=== PATIENT | female | born 1940 | race Caucasian/White ===

== ENCOUNTER → 2021-06-05 09:46 | Outpatient (CLI) | payer MEDICARE, SELFPAY ==
--- NOTE | ~2021-06-05 | XR_ITS ---
EXAMINATION: XR chest 2V EXAM DATE: 06/05/2021 10:36 INDICATION: R06.00 - Dyspnea, unspecified TECHNIQUE: Frontal and lateral projections of the chest obtained and reviewed. There is no prior karlos dy for comparison. FINDINGS: Mild cardiomegaly. No confluent consolidation, pneumothorax or pleural effusion suspected. There are bony degenerative changes. IMPRESSION: Mild cardiomegaly Reviewed, dictated and finalized at location B. FICIAL INTELLIGENCE SPECIALIST IMPRESSION: Mild cardiomegaly
== END ==
PROVIDERS: PCP Family Medicine Adolescent Medicine; Visit Provider Family Medicine Adolescent Medicine
DX: R06.00 Dyspnea, unspecified (principal); E11.3291 Type 2 diabetes mellitus with mild nonproliferative diabetic retinopathy without macular edema, right eye; I10 Essential (primary) hypertension; R60.1 Generalized edema; I51.7 Cardiomegaly
CPT/HCPCS: 71046

== ENCOUNTER → 2021-10-07 10:57 | Outpatient (CLI) | payer MEDICARE, SELFPAY ==
--- NOTE | ~2021-10-07 | XR_ITS ---
EXAMINATION: XR chest 2V DATE: 10/07/2021 11:49 INDICATION: Dyspnea. TECHNIQUE: Frontal and lateral views of the chest were obtained. COMPARISON: Chest 2 views 06/05/2021, CT abdomen 08/16/2018 FINDINGS: There is mild atelectasis at the lung bases. No pleural effusion or pneumothorax. Cardiomeg maura is noted. IMPRESSION: 1. Mild atelectasis at the lung bases. 2. Cardiomegaly. Reviewed, dictated and finalized at location B.
== END ==
PROVIDERS: PCP Family Medicine Adolescent Medicine; Visit Provider Family Medicine Adolescent Medicine
DX: R06.00 Dyspnea, unspecified (principal); I51.7 Cardiomegaly
CPT/HCPCS: 71046

== ENCOUNTER 2022-03-24 01:53 | Emergency (ER) | payer MEDICARE, SELFPAY ==
--- NOTE | ~2022-03-24 | XR_ITS ---
EXAMINATION: XR hip RT 2V w AP pelvis DATE: 03/24/2022 02:42 INDICATION: Right hip pain. TECHNIQUE: An anteroposterior view of the pelvis and 2 views of right hip were obtained. COMPARISON: None. FINDINGS: Bone alignment is normal. No fracture. There is mild osteoarthritis of the hips. IMPRESSION: 1. Mild osteoarthritis of the hips. Reviewed, dictated and finalized at location A. ARATION ROOM MANAGER
--- NOTE | ~2022-03-24 | XR_ITS ---
EXAMINATION: XR ankle RT min 3V DATE: 03/24/2022 02:42 INDICATION: Right ankle swelling. TECHNIQUE: 4 views of right ankle were obtained. COMPARISON: None. FINDINGS: Bone alignment is normal. No fracture. Joint spaces are well maintained. There is an enthes ophyte at plantar aspect of calcaneal tuberosity. Ankle soft tissue swelling is noted. IMPRESSION: 1. No fracture. Reviewed, dictated and finalized at location A. MENT AIRCRAFT MECHANIC IMPRESSION: 1. No fracture.
--- NOTE | 2022-03-24 01:59 | ED.LOWEXIN ---
HPI - Extremity Injury (Lower) General Chief Complaint: Extremity Injury, Lower Stated Complaint: Right Hip, Foot, Leg Pain Time Seen by Provider: 03/24/22 01:59 Source: patient and family Mode of arrival: wheelchair Limitations: no limitations History of Present Illness HPI Narrative: Patient is an 81-year-old female with a history of hypertension, hyperlipidemia, type 2 diabetes, acid reflux, presenting to the emergency department for evaluation of low right hip pain, right buttock pain with radiation of the pain down the right leg into the right foot. Patient reports associated weakness and pain exacerbated with movement. She has been unable to ambulate secondary to the pain. Pain initially began approximately 1 week ago and has worsened over the past 36 hours. Patient has been taking Tylenol at home without improvement in her symptoms. Patient denies associated numbness or tingling. She denies fall or injury. Patient reports bilateral leg swelling that has improved with administration of diuretic therapy that she has been taking at home. Patient denies saddle anesthesia or bowel or bladder incontinence. She reports history of pain in the right hip in the past that usually resolves with time and Tylenol. Related Data Home Medications Medication Instructions Recorded Confirmed chlorthalidone 25 mg tablet 25 mg PO DAILY PRN 06/04/21 12/04/21 glipizide 5 mg tablet, extended 5 mg PO BID 06/04/21 12/04/21 release 24 hr Allergies Allergy/AdvReac Type Severity Reaction Status Date / Time Penicillins Allergy Severe HIVES Verified 03/24/22 02:23 propoxyphene Allergy Severe GI UPSET Verified 03/24/22 02:23 hydrocodone AdvReac Severe SEVERE GI Verified 03/24/22 02:23 UPSET, N/V nitrofurantoin AdvReac Severe Swelling Verified 03/24/22 02:23 acetaminophen AdvReac Unknown Unknown Verified 03/24/22 02:23 [From Darvocet-N] adhesive tape AdvReac Unknown Unknown Verified 03/24/22 02:23 amlodipine AdvReac Unknown Unknown Verified 03/24/22 02:23 glimepiride AdvReac Unknown Unknown Verified 03/24/22 02:23 ibuprofen AdvReac Unknown Unknown Verified 03/24/22 02:23 metformin AdvReac Unknown Unknown Verified 03/24/22 02:23 omeprazole [From Prilosec] AdvReac Unknown Unknown Verified 03/24/22 02:23 pioglitazone AdvReac Unknown Unknown Verified 03/24/22 02:23 simvastatin [From Zocor] AdvReac Unknown Unknown Verified 03/24/22 02:23 Review of Systems Review of Systems: CONSTITUTIONAL: Denies fever, chills, or sweats. ENT: Denies rhinorrhea, congestion, sore throat, or otalgia. CARDIOVASCULAR: Denies chest pain, palpitations, or edema. RESPIRATORY: Denies cough or dyspnea. GASTROINTESTINAL: Denies abdominal pain, nausea, vomiting, or diarrhea. GENITOURINARY: Denies dysuria or hematuria. SKIN: Denies rash or itching. MUSCULOSKELETAL: Reports right hip pain, right buttock pain right foot pain NEUROLOGIC: Denies headache, numbness; reports weakness in the right lower extremity secondary to pain PMFSH Past Medical History Medical History Acquired hypertriglyceridemia Age related osteoporosis Aortic atherosclerosis Exudative age-related macular degeneration, left eye, with inactive choroidal neovascularization GERD (gastroesophageal reflux disease) Hepatic steatosis Hypertension longterm (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 of insulin Nonexudative age-related macular degeneration, right eye, intermediate dry stage Overactive bladder Type 2 diabetes mellitus with mild nonproliferative diabetic retinopathy without macular edema, right eye Surgical History Surgical History H/O repair of rotator cuff Hx of cholecystectomy Family History Family History Father Asthma Cerebrovascular accident Family history of diabetes mellitus in first degree relative Sibling Family history of diabetes mellitus
[2022-03-24 02:01] VITALS: BP 137/54; PULSE 61; RESP 18; TEMP 36.2; O2SAT 98
[2022-03-24] MEDS: diazePAM (*CRX) 5 MG TABLET 2.5 MG PO (02:24)
[2022-03-24 02:30] LABS: Basophils Percent Auto 0.4 % (0.2-1.2); Eosinophils Absolute Auto 0.1 K/mm3 (0-0.3); Eosinophils Percent Auto 1.2 % (0-4.4); Hematocrit 37.4 % (37.0-47.0); Hemoglobin 12.6 g/dL (12.0-15.0); Immature Granulocyte Absolute 0.04 K/mm3 (0.00-0.031); Immature Granulocyte Percent A 0.4 % (0-0.5); Lymphocytes Absolute Auto 1.42 K/mm3 (0.9-3.2); Lymphocytes Percent Auto 13.7 % (18.3-44.2); Mean Corpuscular HGB Conc 33.7 g/dl (32-36); Mean Corpuscular Volume 91.9 fl (80-100); Mean Platelet Volume 10.6 fl (7.4-10.4); Monocytes Absolute Auto 0.8 K/mm3 (0.1-0.6); Monocytes Percent Auto 7.9 % (2.6-8.5); Neutrophils Absolute Auto 7.9 K/mm3 (1.3-6.7); Neutrophils Percent Auto 76.4 % (45.5-73.1); Platelet Count Result 151 k/mm3 (150-375); Red Blood Count 4.07 M/mm3 (4.2-5.4); Red Cell Distribution Width 12.7 % (11.5-14.5); White Blood Count 10.4 K/mm3 (4.5-10.0)
[2022-03-24 02:42] LABS: Anion Gap 11 mmol/L (8-16); Blood Urea Nitrogen 55 mg/dL (7-17); CRP < 0.5 mg/dL (<1.0); Calcium 8.4 mg/dL (8.4-10.2); Carbon Dioxide 31 mmol/L (22-30); Chloride 101 mmol/L (98-107); Estimated CRCL calculation 30 ml/min; Estimated Glomerular Filt Rate 48; Glucose 181 mg/dL (65-110); Potassium 3.4 mmol/L (3.4-5.0); Sodium 143 mmol/L (137-145); Uric Acid 12.7 mg/dL (2.5-7.5)
[2022-03-24 04:20] VITALS: BP 121/67; PULSE 67; RESP 18; O2SAT 99
[2022-03-24 04:48] LABS: Erythrocyte Sedimentation Rate 21 mm/hr (0-20)
== END 2022-03-24 05:00 | disposition home or self-care (01) ==
PROVIDERS: Emergency Provider Emergency Medicine; PCP Family Medicine Adolescent Medicine
DX: M54.41 Lumbago with sciatica, right side (principal); M54.10 Radiculopathy, site unspecified; M79.671 Pain in right foot; K21.9 Gastro-esophageal reflux disease without esophagitis; I10 Essential (primary) hypertension; E11.3291 Type 2 diabetes mellitus with mild nonproliferative diabetic retinopathy without macular edema, right eye; Z79.4 Long term (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 of insulin
CPT/HCPCS: 36415; 73502; 73610; 80048; 84550; 85025; 85652; 86140; 96374; 99284; A9270; J1100

== ENCOUNTER 2022-06-29 12:53 | Emergency (ER) | payer MEDICARE, SELFPAY ==
--- NOTE | ~2022-06-29 | CT_ITS ---
EXAMINATION: CT cervical spine wo con DATE: 06/29/2022 16:47 INDICATION: neck pain TECHNIQUE: Computed tomography (CT) of the cervical spine was performed without intravenous contrast. Automated exposure control and iterative reconstruction technique were employed. The dose-length pro duct was 414.29 mGy-cm. COMPARISON: X-ray C-spine 02/28/2011. FINDINGS: Vertebral Body Alignment: Intact. . Craniocervical and atlantoaxial alignment: Moderate degenerative change. Alignment intact. Osseous structures/fracture: No evidence of a lytic or blastic process in the visualized spine. No e vidence of acute fracture. . Cervical soft tissues: The paraspinal soft tissues planes are maintained. Minimal biapical pleural sc arring. Calcified plaque in the neck arteries. Degenerative changes: Degenerative changes, without severe neural foraminal or central canal narrowin g. IMPRESSION: No acute fracture or traumatic malalignment in the cervical spine. Reviewed, dictated and finalized at location K. SIX SIGMA BLACK BELT
[2022-06-29 13:13] VITALS: BP 121/50; PULSE 66; RESP 16; TEMP 36.8; O2SAT 95
--- NOTE | 2022-06-29 14:13 | ECG_ITS ---
Measurements Intervals [place] Rate: 57 P: 14 SC: 124 QRS: -5 QRSD: 86 T: 43 QT: 423 QTc: 412 Interpretive Statements SINUS BRADYCARDIA BASELINE ARTIFACT- I, II, AVR, AVL BORDERLINE ECG NO PREVIOUS ECG AVAILABLE FOR COMPARISON Electronically Signed On 06-29-2022 16:38:42 MEDICAL MICROBIOLOGIST by Tobi Jenkins D.O.
[2022-06-29 14:50] LABS: Basophils Absolute Auto 0.1 K/mm3 (0.0-0.1); Basophils Percent Auto 0.5 % (0.2-1.2); Eosinophils Absolute Auto 0.2 K/mm3 (0-0.3); Eosinophils Percent Auto 1.9 % (0-4.4); Hematocrit 36.5 % (37.0-47.0); Hemoglobin 12.1 g/dL (12.0-15.0); Immature Granulocyte Absolute 0.04 K/mm3 (0.00-0.031); Immature Granulocyte Percent A 0.4 % (0-0.5); Lymphocytes Absolute Auto 1.45 K/mm3 (0.9-3.2); Lymphocytes Percent Auto 14.8 % (18.3-44.2); Mean Corpuscular HGB Conc 33.2 g/dl (32-36); Mean Corpuscular Hemoglobin 31.3 pg (26-34); Mean Corpuscular Volume 94.3 fl (80-100); Monocytes Absolute Auto 0.8 K/mm3 (0.1-0.6); Monocytes Percent Auto 7.9 % (2.6-8.5); Neutrophils Absolute Auto 7.3 K/mm3 (1.3-6.7); Neutrophils Percent Auto 74.5 % (45.5-73.1); Platelet Count Result 173 k/mm3 (150-375); Red Blood Count 3.87 M/mm3 (4.2-5.4); Red Cell Distribution Width 13.8 % (11.5-14.5); White Blood Count 9.8 K/mm3 (4.5-10.0)
[2022-06-29 14:52] LABS: Appearance Urine Clear (Clear); Bilirubin Urine Negative (Negative); Blood Urine Negative (Negative); Color Urine Yellow (Yellow); Glucose Urine UA Negative (Negative); Ketones Urine Negative (Negative); Leukocyte Esterase Ur Negative LEU/UL (Negative); Nitrate Urine Negative (Negative); Protein Urine Negative (Negative); Specific Grav Ur 1.015 (1.001-1.035); Urobilinogen Urine 0.2 mg/dL (<2.0)
[2022-06-29 14:58] LABS: Alanine Aminotransferase 17 U/L (6-35); Albumin Level 3.9 g/dL (3.5-5.1); Alkaline Phosphatase 100 U/L (38-126); Anion Gap 3 mmol/L (8-16); Aspartate Amino Transferase 22 U/L (14-36); Bilirubin,Total 0.6 mg/dL (0.2-1.3); Blood Urea Nitrogen 55 mg/dL (7-17); Calcium 8.6 mg/dL (8.4-10.2); Carbon Dioxide 37 mmol/L (22-30); Chloride 97 mmol/L (98-107); Estimated CRCL calculation 33 ml/min; Estimated Glomerular Filt Rate 48; Glucose 200 mg/dL (65-110); Potassium 3.8 mmol/L (3.4-5.0); Sodium 137 mmol/L (137-145)
[2022-06-29 15:01] LABS: Add Urine Microscopic? NO
[2022-06-29] MEDS: diazePAM (*CRX) 2 MG TABLET PO (16:20)
--- NOTE | 2022-06-29 17:05 | ED.GENADULT ---
HPI - General Adult General Chief complaint: Weakness Stated complaint: neck pain/stiffness Time Seen by Provider: 06/29/22 14:57 Source: patient and RN notes reviewed Mode of arrival: ambulatory Limitations: no limitations History of Present Illness HPI narrative: This is an 81 year old with history of DM, gout, hypertension who presents for evaluation of neck pain. She reports posterior neck pain for at least 2 months. She states her pain is worse with movement. She has been taking ibuprofen for her pain. She thought her pain was due to neck strain because she work up with and it is worse with movement. Her pain does improve with ibuprofen at time. She denies headache, fever, chills, dizziness, numbness or tingling. She denies arm or leg weakness. She states moving her arms makes her pain worse. She has taken 600 mg ibuprofen today for her pain without relief. She had appointment with her PCP today for reevaluation of her pain. She denies any recent falls. Related Data Allergies Allergy/AdvReac Type Severity Reaction Status Date / Time Penicillins Allergy Severe HIVES Verified 06/23/22 10:45 propoxyphene Allergy Severe GI UPSET Verified 06/23/22 10:45 hydrocodone AdvReac Severe SEVERE GI Verified 06/23/22 10:45 UPSET, N/V nitrofurantoin AdvReac Severe Swelling Verified 06/23/22 10:45 acetaminophen AdvReac Unknown Unknown Verified 06/23/22 10:45 [From Darvocet-N] adhesive tape AdvReac Unknown Unknown Verified 06/23/22 10:45 amlodipine AdvReac Unknown Unknown Verified 06/23/22 10:45 glimepiride AdvReac Unknown Unknown Verified 06/23/22 10:45 ibuprofen AdvReac Unknown Unknown Verified 06/23/22 10:45 metformin AdvReac Unknown Unknown Verified 06/23/22 10:45 omeprazole [From Prilosec] AdvReac Unknown Unknown Verified 06/23/22 10:45 pioglitazone AdvReac Unknown Unknown Verified 06/23/22 10:45 simvastatin [From Zocor] AdvReac Unknown Unknown Verified 06/23/22 10:45 Review of Systems Constitutional: Constitutional: Denies weakness Cardiovascular: Cardiovascular: Denies syncope, Denies rapid heart rate, Denies irregular heart rhythm, Denies leg edema and Denies dyspnea Respiratory: Respiratory: Denies chest congestion, Denies hemoptysis, Denies excessive phlegm production and Denies dyspnea Gastrointestinal: Gastrointestinal: Denies abdominal pain, Denies hematochezia, Denies diarrhea and Denies vomiting Genitourinary: Genitourinary: Denies hematuria and Denies dysuria Musculoskeletal: Musculoskeletal: Reports back pain, Denies joint swelling, Denies loss of height and Denies muscle weakness Neurologic: Denies syncope, Denies focal weakness and Denies weakness PMFSH Past Medical History Medical History Acquired hypertriglyceridemia Age related osteoporosis Aortic atherosclerosis Exudative age-related macular degeneration, left eye, with inactive choroidal neovascularization GERD (gastroesophageal reflux disease) Hepatic steatosis Hypertension long-term (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 of insulin Nonexudative age-related macular degeneration, right eye, intermediate dry stage Overactive bladder Type 2 diabetes mellitus with mild nonproliferative diabetic retinopathy without macular edema, right eye Surgical History Surgical History H/O repair of rotator cuff Hx of cholecystectomy Family History Family History Father Asthma Cerebrovascular accident Family history of diabetes mellitus in first degree relative Sibling Family history of diabetes mellitus in first degree relative Family history of malignant neoplasm of urinary bladder Mother Family history of heart disease in male family member before age 55 Other Family history of arthritis Hypertension Social History Social History Smoking status: Never smok
== END 2022-06-29 19:40 | disposition home or self-care (01) ==
PROVIDERS: Emergency Provider General Practice; PCP Family Medicine Adolescent Medicine
DX: M54.2 Cervicalgia (principal); G89.29 Other chronic pain; I10 Essential (primary) hypertension; I70.0 Atherosclerosis of aorta; E11.3292 Type 2 diabetes mellitus with mild nonproliferative diabetic retinopathy without macular edema, left eye; H35.3222 Exudative age-related macular degeneration, left eye, with inactive choroidal neovascularization; K21.9 Gastro-esophageal reflux disease without esophagitis; M10.9 Gout, unspecified; M81.0 Age-related osteoporosis without current pathological fracture; Z79.4 Long term (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 of insulin; R00.1 Bradycardia, unspecified
CPT/HCPCS: 36415; 72125; 80053; 81003; 85025; 93005; 96365; 99284; A9270; J0131

== ENCOUNTER 2022-07-01 10:50 | Inpatient (IN) | payer MEDICARE, SELFPAY ==
[2022-07-01] VITALS (18 sets, daily range): BP systolic 101–153; BP diastolic 40–104; PULSE 58–90; RESP 14–28; TEMP 36.6–37.1; O2SAT 93–100; BMI 27.8
--- NOTE | ~2022-07-01 | XR_ITS ---
EXAMINATION: XR chest 1V portable DATE: 07/03/2022 10:22 INDICATION: Shortness of breath TECHNIQUE: frontal view of the chest was obtained. COMPARISON: Chest radiograph dated 07/01/2022 FINDINGS: Eventration along the right hemidiaphragm. Mild opacity lateral left lung base with loss of the mild lateral diaphragmatic shadow which could be due to small pleural effusion, atelectasis, pneumonia or most likely the presence of a small pericardial fat pad. Remainder of the lungs are clear. No pulmona ry edema, pneumothorax or right pleural effusion. The cardiomediastinal silhouette is within normal l imits for AP technique. IMPRESSION: 1. Opacity at the lateral left lower lung zone most likely due to a small left paracardial fat pad al though differential includes small pleural effusion, atelectasis or less likely pneumonia. Reviewed, dictated and finalized at location A. DING PRINCIPAL IMPRESSION: 1. Opacity at the lateral left lower lung zone most likely due to a small left paracardial fat pad although differential includes small pleural effusion, atel ectasis or less likely pneumonia.
--- NOTE | ~2022-07-01 | CT_ITS ---
EXAMINATION: CT LE LT wo con DATE: 07/05/2022 09:28 INDICATION: Lateral left foot pain TECHNIQUE: High resolution computed tomography (CT) of the left foot and ankle was performed without intravenous contrast. Additional sagittal and coronal reconstructions were performed. Automated expos ure control and iterative reconstruction technique were employed. The dose-length product was 495.00 mGy-cm. COMPARISON: None FINDINGS: Bone alignment is normal. No fracture. Prominent osteophyte along the anterior tip of the lateral mal leolus at the insertion of the anterior talofibular ligament additional tiny osteophyte more medially at the insertion of the calcaneofibular ligament with likely representing heterotopic ossification r elated to chronic ligament sprains. Mild polyarticular osteoarthritis at the left foot and ankle with subarticular cystic change along the lateral margin of the talar dome is, both sides of the calcaneo cuboid, medial naviculocuneiform and third tarsal metatarsal articulations. Additional mild osteoarth ritis at the remaining tarsal metatarsal joints, the first metatarsophalangeal and a few interphalang eal joints. Soft tissue swelling with subcutaneous edema most prominent over the dorsum of the foot a nd posterior to the Achilles tendon. No ankle joint effusion. IMPRESSION: 1. Mild polyarticular osteoarthritis at the left foot and ankle. No acute osseous abnormality. 2. Osteophytes along the lateral malleolus suggesting sequela chronic sprains of the anterior talofib ular and calcaneofibular ligaments. Reviewed, dictated and finalized at location B. IMPRESSION: 1. Mild polyarticular osteoarthritis at the left foot and ankle. No acute osseo us abnormality. 2. Osteophytes along the lateral malleolus suggesting sequela chronic sprains o f the anterior talofibular and calcaneofibular ligaments.
--- NOTE | ~2022-07-01 | US_ITS ---
EXAMINATION: US venous doppler [facility] DATE: 07/01/2022 22:38 INDICATION: Lower limb swelling TECHNIQUE: Grayscale ultrasound images without and with compression and Doppler ultrasound images of the bilateral lower extremity veins were obtained. COMPARISON: None. FINDINGS: The visualized portions of right common femoral vein, profunda (deep) femoral vein, femoral vein, pop liteal vein, posterior tibial veins, peroneal veins, gastrocnemius vein and greater saphenous vein ou tflow are patent. The visualized portions of left common femoral vein, profunda femoral vein, femoral vein, popliteal v ein, posterior tibial veins, peroneal veins, gastrocnemius vein and greater saphenous vein outflow ar e patent. IMPRESSION: 1. No deep venous thrombosis in either lower limb. Reviewed, dictated and finalized at location A. T SERVICES LIBRARIAN
--- NOTE | ~2022-07-01 | MR_ITS ---
MRI of the brain Clinical History: Altered mental status Technique: Axial and sagittal T1-weighted images were acquired. These were followed by axial T2-weigh yasemin, diffusion weighted, gradient, and FLAIR images. Findings: There is no acute infarct, intracranial hemorrhage, or mass lesion. Moderate chronic microv ascular ischemic changes are present in the periventricular white matter bilaterally. Ventricles and subarachnoid spaces are unremarkable. Orbits are unremarkable. Paranasal sinuses and m astoid air cells are clear. Major intracranial flow voids are intact. Sagittal midline structures are intact. IMPRESSION: No acute abnormality. Moderate chronic microvascular ischemic change. Reviewed, dictated and finalized at location M.
--- NOTE | ~2022-07-01 | XR_ITS ---
EXAMINATION: XR chest 1V portable DATE: 07/05/2022 10:20 INDICATION: Shortness of breath. TECHNIQUE: A single frontal view of the chest was obtained. COMPARISON: Chest one view 07/04/2022, CT abdomen 08/16/2018 FINDINGS: There is mild atelectasis in the lower lung zones. No pleural effusion or pneumothorax. Car diomegaly is noted. IMPRESSION: 1. Mild atelectasis in the lower lung zones. 2. Cardiomegaly. Reviewed, dictated and finalized at location A.
--- NOTE | ~2022-07-01 | XR_ITS ---
EXAMINATION: XR chest 1V portable DATE: 07/04/2022 12:54 INDICATION: Shortness of breath TECHNIQUE: frontal view of the chest was obtained. COMPARISON: Chest radiograph dated 07/03/2022 FINDINGS: Again seen are mild streaky linear opacities at the bilateral lung bases and favor atelectasis. No pu lmonary edema, pleural effusion or pneumothorax. The cardiomediastinal silhouette is within normal li mits for AP technique. IMPRESSION: 1. Mild bibasilar atelectasis. Reviewed, dictated and finalized at location A.
--- NOTE | ~2022-07-01 | XR_ITS ---
EXAMINATION: XR chest 1V portable DATE: 07/01/2022 12:09 INDICATION: Mental status change. TECHNIQUE: A single frontal view of the chest was obtained. COMPARISON: Chest 2 views 10/07/2021, CT abdomen 08/16/2018 FINDINGS: There is mild atelectasis at the lung bases. No pleural effusion or pneumothorax. The heart size is normal. IMPRESSION: 1. Mild atelectasis at the lung bases. Reviewed, dictated and finalized at location A. TAGE CONSULTANT
--- NOTE | ~2022-07-01 | CT_ITS ---
CT head without contrast Indication: Confusion Technique: Serial scans were obtained through the brain without the administration of contrast. Dose reduction technique was used on this scan by utilizing automated exposure control and iterative recon struction technique. The dose-length product (DLP) was 1059.33 mGy-cm. Findings: There is no evidence of intracranial hemorrhage, mass lesion, or acute infarct. The ventri cles and subarachnoid spaces are dilated, consistent with mild atrophy. Low attenuation regions are seen within the periventricular white matter bilaterally, likely representing changes from chronic mi crovascular ischemic disease. There is no evidence of edema, mass effect or midline shift. The visu alized paranasal sinuses and mastoid air cells are clear. Impression: No intracranial hemorrhage, mass, or acute infarct. Atrophy and chronic white matter changes, as above. Reviewed, dictated and finalized at location . 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 Atrophy and chronic white matter changes, as above.
--- NOTE | ~2022-07-01 | CT_ITS ---
Noncontrast CT scan of the cervical spine Technique: Multiple contiguous axial [address] images of the cervical spine were obtained and rec onstructed in 2D sagittal and coronal planes on the acquisition scanner. Dose reduction technique was used on this scan by utilizing automated exposure control, adjustment of the mA and/or kV according to patient size. Clinical History: Pain Findings: No fractures or dislocations. There is uncovertebral degenerative change at C3-C4 and C4-C 5. There is mild degenerative disc narrowing at C5-C6 and C6-C7. No prevertebral soft tissue swelling . Impression: No fracture or subluxation of the cervical spine. Degenerative change, as above. Reviewed, dictated and finalized at location . UGH OPERATOR Impression: No fracture or subluxation of the cervical spine. Degenerative change, as above.
--- NOTE | ~2022-07-01 | MR_ITS ---
MRI of the cervical spine Clinical History: Neck pain, paresthesia Technique: Axial T2-weighted and gradient images, and sagittal T1-weighted, T2-weighted, and STIR maría ges were acquired. Findings: Exam is degraded by motion artifact on all pulse sequences. No fracture or subluxation iden tified. Probable intraosseous hemangioma present within the T3 vertebral body. No suspicious bone mar row signal abnormality seen. At C2-C3, no disc bulge or herniation identified. No spinal canal stenosis, cord compression, or neur al foraminal narrowing. At C3-C4, there is probable disc osteophyte complex, but no spinal canal stenosis or cord compression identified. Probable mild left neural foraminal narrowing. Right neural foramen preserved. At C4-C5, there is probable small disc osteophyte complex. No spinal canal stenosis, cord compression , or neural foraminal narrowing identified. At C5-C6 and C6-C7, there is no disc bulge or herniation. No spinal canal stenosis, cord compression, or neural foraminal narrowing identified at these levels. Paravertebral soft tissues are unremarkable. Impression: Minimal degenerative spondylosis, as above. Probable mild left neural foraminal narrowing at C3-C4. Reviewed, dictated and finalized at [facility]. Impression: Minimal degenerative spondylosis, as above. Probable mild left neural foraminal narrowing at C3-C4.
[2022-07-01] MEDS: LORazepam INJ (*CRX) 2 MG/ML VIAL (11:07)
--- NOTE | 2022-07-01 11:08 | ECG_ITS ---
Measurements Intervals [place] Rate: 63 P: 28 [place]: 135 QRS: -4 QRSD: 92 T: 58 QT: 416 QTc: 427 Interpretive Statements SINUS RHYTHM BORDERLINE R WAVE PROGRESSION, ANTERIOR LEADS BORDERLINE ST-T WAVE ABNORMALITY- HIGH LATERAL LEADS BASELINE ARTIFACT- V1-V2, V4-V6 BORDERLINE ECG COMPARED TO ECG 06/29/2022 16:34:47 SINUS RHYTHM NOW PRESENT Electronically Signed On 07-01-2022 11:59:39 STRUCTURAL STEEL TRADES WORKER by Tobi Jenkins D.O.
--- NOTE | 2022-07-01 11:08 | ED.AMS ---
HPI - Altered Mental Status General Chief Complaint: Altered Mental Status Stated Complaint: AMS since 0600 Time Seen by Provider: 07/01/22 10:53 Source: patient, family and EMS Mode of arrival: EMS Limitations: clinical condition History of Present Illness HPI narrative: Patient is 81 years old white female came to the emergency room from her son house by ambulance with agitation, restlessness, weakness, noticed systems test engineer today by her son patient started on baclofen yesterday, for the neck pain. She received 2 doses so far. Was doing fine last night woke up this morning with the above symptoms. Patient is awake, alert and oriented x4, thinking that her son will kill her, does not want to drink water,, because she believes it is not water. Keep telling me help me,. And God probably will not forgive her Related Data Allergies Allergy/AdvReac Type Severity Reaction Status Date / Time Penicillins Allergy Severe HIVES Verified 06/23/22 10:45 propoxyphene Allergy Severe GI UPSET Verified 06/23/22 10:45 hydrocodone AdvReac Severe SEVERE GI Verified 06/23/22 10:45 UPSET, N/V nitrofurantoin AdvReac Severe Swelling Verified 06/23/22 10:45 acetaminophen AdvReac Unknown Unknown Verified 06/23/22 10:45 [From Darvocet-N] adhesive tape AdvReac Unknown Unknown Verified 06/23/22 10:45 amlodipine AdvReac Unknown Unknown Verified 06/23/22 10:45 glimepiride AdvReac Unknown Unknown Verified 06/23/22 10:45 ibuprofen AdvReac Unknown Unknown Verified 06/23/22 10:45 metformin AdvReac Unknown Unknown Verified 06/23/22 10:45 omeprazole [From Prilosec] AdvReac Unknown Unknown Verified 06/23/22 10:45 pioglitazone AdvReac Unknown Unknown Verified 06/23/22 10:45 simvastatin [From Zocor] AdvReac Unknown Unknown Verified 06/23/22 10:45 Review of Systems Review of Systems: ROS unobtainable: Yes unobtainable due to medical condition PMFSH Past Medical History Medical History Acquired hypertriglyceridemia Age related osteoporosis Aortic atherosclerosis Exudative age-related macular degeneration, left eye, with inactive choroidal neovascularization GERD (gastroesophageal reflux disease) Hepatic steatosis Hypertension 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 Nonexudative age-related macular degeneration, right eye, intermediate dry stage Overactive bladder Type 2 diabetes mellitus with mild nonproliferative diabetic retinopathy without macular edema, right eye Surgical History Surgical History H/O repair of rotator cuff Hx of cholecystectomy Family History Family History Father Asthma Cerebrovascular accident Family history of diabetes mellitus in first degree relative Sibling Family history of diabetes mellitus in first degree relative Family history of malignant neoplasm of urinary bladder Mother Family history of heart disease in male family member before age 55 Other Family history of arthritis Hypertension Social History Social History Smoking status: Never smoker Second hand tobacco smoke exposure: No Alcohol intake: never Substance use: never Substance use type: does not use Living arrangements: with family Occupation/Education: retired Gender identity (if verbalized by the patient): Female Sexual Orientation (if Verbalized by the Patient): Straight or Heterosexual Spiritual care concerns: No Course Vital Signs Vital signs: Vital Signs Pulse Rate 90 07/01/22 11:00 Respiratory Rate 17 07/01/22 11:00 Pulse Oximetry 98 07/01/22 11:00 Oxygen Delivery Room Air 07/01/22 11:00 Temperature 37.1 C 07/01/22 11:19 Pulse Rate 62 07/01/22 13:01 Respiratory Rate 16 07/01/22 13:01 Blood Pressure 110/53 L 07/01/22 13:01 Pulse Oximetry 95 07/01/22 13:01 Oxygen Delivery Room Air
[2022-07-01] MEDS: OLANZapine 10 MG INJ VIAL IM (11:18)
[2022-07-01 12:16] LABS: Alveolar/Arterial O2 Gradient 30.5 mmHg; Base Excess ABG 6.9 mEq/l (+/-2.0); Fractional Inspired Oxygen 21 %; HCO3 ABG 31.9 mEq/l (22.0-26.0); Oxygen Content ABG 16.1 %vol (16.0-22.0); Oxygen Saturation ABG 92.7 % (95.0-100.0); Oxyhemoglobin 90.9 % THb (90.0-100.0); PCO2 ABG 47.2 mmHg (35.0-45.0); PO2 ABG 62.7 mmHg (80.0-100.0); PO2 FiO2 Ratio Arterial Blood 2.99 %; Total Hemoglobin 12.6 g/dL (12.0-18.0); pH ABG 7.448 (7.350-7.450)
[2022-07-01 12:18] LABS: Site Drawn RIGHT BRACHIAL
[2022-07-01 12:38] LABS: Basophils Percent Auto 0.3 % (0.2-1.2); Hematocrit 36.5 % (37.0-47.0); Hemoglobin 11.6 g/dL (12.0-15.0); Immature Granulocyte Absolute 0.05 K/mm3 (0.00-0.031); Immature Granulocyte Percent A 0.6 % (0-0.5); Lymphocytes Absolute Auto 0.75 K/mm3 (0.9-3.2); Lymphocytes Percent Auto 8.5 % (18.3-44.2); Mean Corpuscular HGB Conc 31.8 g/dl (32-36); Mean Corpuscular Hemoglobin 30.1 pg (26-34); Mean Corpuscular Volume 94.6 fl (80-100); Mean Platelet Volume 10.3 fl (7.4-10.4); Monocytes Absolute Auto 0.5 K/mm3 (0.1-0.6); Monocytes Percent Auto 6.1 % (2.6-8.5); Neutrophils Absolute Auto 7.5 K/mm3 (1.3-6.7); Neutrophils Percent Auto 84.5 % (45.5-73.1); Platelet Count Result 174 k/mm3 (150-375); Red Blood Count 3.86 M/mm3 (4.2-5.4); Red Cell Distribution Width 13.7 % (11.5-14.5); White Blood Count 8.8 K/mm3 (4.5-10.0)
[2022-07-01 12:40] LABS: Appearance Urine Clear (Clear); Bilirubin Urine Negative (Negative); Blood Urine Negative (Negative); Color Urine Yellow (Yellow); Glucose Urine UA Negative (Negative); Ketones Urine Negative (Negative); Leukocyte Esterase Ur Negative LEU/UL (Negative); Nitrate Urine Negative (Negative); Protein Urine Negative (Negative); Specific Grav Ur 1.015 (1.001-1.035); Urobilinogen Urine 0.2 mg/dL (<2.0)
[2022-07-01 12:42] LABS: INR 1.1
[2022-07-01 12:43] LABS: Potassium 3.5 mmol/L (3.4-5.0); Sodium 140 mmol/L (137-145)
[2022-07-01 12:44] LABS: Alanine Aminotransferase 21 U/L (6-35); Albumin Level 3.9 g/dL (3.5-5.1); Alkaline Phosphatase 84 U/L (38-126); Anion Gap 7 mmol/L (8-16); Aspartate Amino Transferase 22 U/L (14-36); Bilirubin,Total 0.7 mg/dL (0.2-1.3); Blood Urea Nitrogen 46 mg/dL (7-17); Calcium 8.7 mg/dL (8.4-10.2); Carbon Dioxide 34 mmol/L (22-30); Chloride 99 mmol/L (98-107); Creatine Kinase 36 U/L (30-135); Estimated CRCL calculation 41 ml/min; Estimated Glomerular Filt Rate 60; Glucose 294 mg/dL (65-110)
[2022-07-01 12:54] LABS: Add Urine Microscopic? NO
[2022-07-01] MEDS: SODIUM CHLORIDE 0.9% IV 1,000 ML 999 ML IV CONT (13:00)
--- NOTE | 2022-07-01 13:10 | PC.NURSE ---
1100 Pt disoriented and climbing out of bed upon arrival, unable to get IV access, labs, scans, and bp due to pt condition, Dr. Baig aware.
--- NOTE | 2022-07-01 13:11 | PC.NURSE ---
1210- able to obtain iv access, labs, ekg, and scans.
--- NOTE | 2022-07-01 14:15 | PM.IMHP ---
H&P: HPI History of Present Illness Date/Time: 07/01/22 14:15 Chief Complaint: Altered mental status. Narrative: This is an 81-year-old female with insulin-dependent type 2 diabetes mellitus, hypertension, gastroesophageal reflux disease, gout, and other comorbidities who presented to the emergency department via EMS from home for evaluation of altered mental status. The patient is currently sedated and is unable to provide any history and as such all of the following is obtained via discussions with her son Julio and through review of her EMR. Julio has lived with the patient for several years and helps care for her. According to Julio, the patient has been complaining of neck pain since the beginning of the year. Initially it was intermittent but it has become more persistent over the past week or so. She previously located the pain to the midline vertebral region and reported that it radiated up into the head. The pain seems to be worse with any movement and even worse when up and ambulating. On review of her EMR it looks like she was seen in the ED on 03/24/2022 with right back and ankle pain. Uric acid was over 12 at that time she was started on Medrol Dosepak. Due to ongoing issues with gout in her feet, she was seen again by her primary care provider Dr. Cross on 05/04/2022 and at that time she reported stiffness in the posterior neck in addition to the pain in her feet. She finished another course of prednisone and was started on febuxostat as she is intolerant to allopurinol which exacerbates her chronic diarrhea. She was seen again by Dr. Cross on 06/23/2022 with complaints of water retention though her weight had remained unchanged; she also quit taking febuxostat as she thought it was causing her abdominal discomfort. She was seen in the ED 2 days ago due to worsening neck pain; ibuprofen she had been taking at home was not helping. Cervical spine CT showed no acute findings and she was given a prescription for 2 mg diazepam as needed for muscle spasms. ?The diazepam was like water and did not help? and she was prescribed baclofen yesterday. First dose was given yesterday morning and it did seem to help a bit. She received 2 doses last evening before retiring to bed. According to Julio, she got up on her own a couple of times throughout the night though earlier this morning she was too weak to get off of the toilet and she was very somnolent and he called 911. At that time she was reportedly calm however on arrival to ED she was and combative and yelling. Four people were holding her down and she was still trying to jump out of the bed. She was paranoid and thought her son was trying to kill her. In the ED she was given lorazepam 2 mg IM and olanzapine 10 mg IM and she has been asleep since that time. Julio has never seen her act like this before. He admits that occasionally she is mean and will snap at him or become argumentative and agitated but she has never been diagnosed with dementia. Repeat cervical spine CT and head CT today were unremarkable. Review of Systems Review of Systems: Unable to be obtained given current clinical condition. [facility] Past Medical History Medical History (Updated 07/01/22 @ 20:20 by Joyce Robison PA-C) Acquired hypertriglyceridemia Age related osteoporosis Aortic atherosclerosis Exudative age-related macular degeneration, left eye, with inactive choroidal neovascularization Gastroesophageal reflux disease Hepatic steatosis Hypertension 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, right eye, intermediate dry stage Overactive bladder Surgical History Surgical History (Updated 07/01/22 @ 20:05 by Joyce Robison PA-C) History of cholecystectomy History of repair of rotator cuff Family History Family History Father Asthma Cerebrovascular accident Family history of diabetes mellitus in [facility]
[2022-07-01 14:47] LABS: Barbiturate Screen Urine Negative (Negative); Benzodiazepines Screen Urine Negative (Negative)
[2022-07-01 14:53] LABS: Amphetamine Screen Urine Negative (Negative); Cannabinoid Screen Urine Negative (Negative); Cocaine Screen Urine Negative (Negative); Methadone Screen Urine Negative (Negative); Opiate Screen Urine Negative (Negative); Phencyclidine Screen Urine Negative (Negative)
[2022-07-01 15:52] LABS: Ammonia < 9 umol/L (9-30)
[2022-07-01 15:54] LABS: Ethanol < 10 mg/dL (<10)
[2022-07-01 16:03] LABS: Uric Acid 8.9 mg/dL (2.5-7.5)
[2022-07-01 16:05] LABS: CRP 3.6 mg/dL (<1.0)
[2022-07-01] MEDS: SODIUM CHLORIDE 0.9% IV 1,000 ML 125 ML IV CONT (16:07)
[2022-07-01 16:23] LABS: Erythrocyte Sedimentation Rate 49 mm/hr (0-20)
--- NOTE | 2022-07-01 17:31 | ADMGEN ---
This patient, Constanza Ventura, was admitted to Medical Room 243-. Patient/family oriented to hospital policies and general routines including ID bracelet, bed and alarms, visiting hours, pain management, procedures, bathroom and other care routines, personal items, smoking policy, room service/diet, and visiting hours. Information on how to activate the Rapid Response Team has been discussed. Patient/Family are encouraged to report perceived risks to care and to ask questions if they do not understand what they are told or what they should do.
[2022-07-01 18:14] LABS: Glucose Point of Care 228 mg/dl (65-105)
[2022-07-01 18:37] LABS: Alveolar/Arterial O2 Gradient 37.6 mmHg; Carboxyhemoglobin 0.2 % THb (0-2.0); Fractional Inspired Oxygen 21 %; HCO3 ABG 31.8 mEq/l (22.0-26.0); Methemoglobin ABG 0.2 %THb (0-1.5); Oxygen Content ABG 14.9 %vol (16.0-22.0); Oxygen Saturation ABG 90.6 % (95.0-100.0); PCO2 ABG 46.4 mmHg (35.0-45.0); PO2 ABG 56.6 mmHg (80.0-100.0); Reduced Hemoglobin 10.6 %THb (0-5.0); Total Hemoglobin 11.9 g/dL (12.0-18.0); pH ABG 7.454 (7.350-7.450)
[2022-07-01 18:38] LABS: Device ROOM AIR; Modified Allen's Test Pass; Site Drawn LEFT RADIAL
[2022-07-01 21:07] LABS: Glucose Point of Care 215 mg/dl (65-105)
[2022-07-02] VITALS (14 sets, daily range): BP systolic 142–166; BP diastolic 59–84; PULSE 22–108; RESP 14–22; TEMP 36.7–37; O2SAT 90–97; BMI 28.5
--- NOTE | 2022-07-02 03:34 | PC.NURSE ---
Patient became awake, thrashing around in bed. Attempting to exit bed, screaming help me and pulled IV catheter out with tip intact. Dr. Begum notified of patient awake but not oriented and still paranoid that staff and everyone attempting to kill her . Attempted to reorient without any success. Soft raghavendra wrist restraints reapplied and patient after initiated, started to settle back down and go back to sleep without medication. Will continue to monitor patient to see if another IV can be inserted without much distress to patient and without premedicating.
[2022-07-02 06:03] LABS: Hematocrit 33.2 % (37.0-47.0); Hemoglobin 10.9 g/dL (12.0-15.0); Mean Corpuscular HGB Conc 32.8 g/dl (32-36); Mean Corpuscular Hemoglobin 30.4 pg (26-34); Mean Corpuscular Volume 92.5 fl (80-100); Mean Platelet Volume 10.6 fl (7.4-10.4); Platelet Count Result 180 k/mm3 (150-375); Red Blood Count 3.59 M/mm3 (4.2-5.4); Red Cell Distribution Width 13.6 % (11.5-14.5); White Blood Count 8.9 K/mm3 (4.5-10.0)
[2022-07-02 06:14] LABS: Potassium 2.9 mmol/L (3.4-5.0)
[2022-07-02 06:23] LABS: Alanine Aminotransferase 17 U/L (6-35); Albumin Level 3.4 g/dL (3.5-5.1); Alkaline Phosphatase 69 U/L (38-126); Anion Gap 1 mmol/L (8-16); Aspartate Amino Transferase 19 U/L (14-36); Bilirubin,Total 0.9 mg/dL (0.2-1.3); Blood Urea Nitrogen 35 mg/dL (7-17); Calcium 8.3 mg/dL (8.4-10.2); Carbon Dioxide 34 mmol/L (22-30); Chloride 107 mmol/L (98-107); Estimated CRCL calculation 50 ml/min; Estimated Glomerular Filt Rate > 60; Glucose 200 mg/dL (65-110); Magnesium 2.2 mg/dL (1.6-2.3); Sodium 142 mmol/L (137-145)
[2022-07-02 09:11] LABS: Glucose Point of Care 195 mg/dl (65-105)
--- NOTE | 2022-07-02 10:39 | PM.IMPN ---
Progress Note: A&P Assessment and Plan (1) Neck pain: Code(s): M54.2 - Cervicalgia Status: Acute Assessment and Plan: Acute on chronic with unknown etiology, likely musculoskeletal? Suspect reaction to the baclofen, would not continue this medication Previously did not respond to Medrol Dosepaks, will avoid steroids Unaffected by Valium Will treat with heating pad and Lidoderm patch for now, occasional toradol if needed for severe neck pain Consider MRI when stable Consult PT when able to cooperate (2) Insulin dependent type 2 diabetes mellitus: Code(s): E11.9 - Type 2 diabetes mellitus without complications; Z79.4 - oysterman (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 of insulin Status: Acute Assessment and Plan: Accu-Cheks, sliding scale insulin, hypoglycemic protocol, A1c was 7 Patient is on 10 units of NPH 70/30 t.i.d. (3) Gastroesophageal reflux disease: Code(s): K21.9 - Gastro-esophageal reflux disease without esophagitis Status: Acute Assessment and Plan: Continue PPI (4) Acute psychosis: Code(s): F23 - Brief psychotic disorder Status: Acute Assessment and Plan: Likely secondary to baclofen Supportive care at this time Restraints removed, continue sitter (5) Chronic systolic (congestive) heart failure: Code(s): I50.22 - Chronic systolic (congestive) heart failure Status: Acute Assessment and Plan: Appears euvolemic, monitor (6) Hepatic steatosis: Code(s): K76.0 - Fatty (change of) liver, not elsewhere classified Status: Chronic Assessment and Plan: LFT stable (7) Gout: Code(s): M10.9 - Gout, unspecified Status: Acute Assessment and Plan: Does not appear to be in an acute flare (8) Hypokalemia: Code(s): E87.6 - Hypokalemia Status: Acute Assessment and Plan: Potassium is 2.9 today, unsure of etiology, replete and recheck Plan DVT prophylaxis with SCDs GI prophylaxis not indicated Code status full code Subjective Date/time seen: 07/02/22 10:39 Interval history: 81-year-old female with history of insulin-dependent diabetes, hypertension, recurrent gout, GERD, fatty liver, among other comorbidities is presenting with acute on chronic neck pain as well as altered mental status including paranoid delusions and severe combative behavior requiring multiple people to restrain her. Of note, she had recently been prescribed baclofen and had taken [address] Imaging of the cervical spine and head were unremarkable. No overnight events noted. No chest pain or shortness of breath. No nausea, vomiting or diarrhea. No fevers or chills. Spoke with son at length at bedside, mentation not quite back to normal but much better than when she came in. Son states that her neck pain responds best to ibuprofen. Review of Systems Review of Systems: 12 point review of systems was assessed and was negative except as noted in the HPI Exam Narrative: General: Alert, oriented to self, intermittently confused HEENT: Atraumatic, normocephalic, mucous membranes moist CV: Regular rate and rhythm, S1, S2 Lungs: Clear to auscultation bilaterally, somewhat diminished at bases Abdomen: Soft, nontender, nondistended Extremities: Normal to inspection, 1+ edema B/L Skin: No rashes noted, no lesions or wounds seen Objective Data Vital Signs Vital Signs: Vital Signs - 24 hr 07/01/22 11:00 07/01/22 11:19 07/01/22 11:00 Temperature 98.7 F Pulse Rate 90 90 Respiratory Rate 17 28 H Blood Pressure Pulse Oximetry 98 Oxygen Delivery Room Air 07/01/22 11:46 07/01/22 12:15 07/01/22 12:42 Temperature Pulse Rate 73 68 63 Respiratory Rate 15 15 14 Blood Pressure 142/95 H 127/47 L Pulse Oximetry 94 94 94 Oxygen Delivery 07/01/22 12:54 07/01/22 13:01 07/01/22 13:16 Temperature Pulse Rate 60 62 58 L Respiratory Rate 15 16 17 B
[2022-07-02] MEDS: ALBUTEROL SULFATE (*SP) AEROSOL 1 PUFF 2 PUFF INHALATION ×2 (11:56→18:20)
[2022-07-02 12:10] LABS: Glucose Point of Care 214 mg/dl (65-105)
[2022-07-02] MEDS: INSULIN ASPART (*BKC) 100 UNITS/ML SUB-Q (12:10)
[2022-07-02] MEDS: PANTOPRAZOLE SODIUM IV 40 MG VIAL IV PUSH (12:35)
[2022-07-02] MEDS: POTASSIUM CHLORIDE INJ 40 MEQ in SODIUM CHLORIDE 0.9% IV 500 ML 130 MEQ IVPB ×2 (12:37→16:50)
[2022-07-02 17:09] LABS: Glucose Point of Care 197 mg/dl (65-105)
[2022-07-02 21:01] LABS: Glucose Point of Care 238 mg/dl (65-105)
[2022-07-03] VITALS (15 sets, daily range): BP systolic 122–173; BP diastolic 50–78; PULSE 64–112; RESP 16–20; TEMP 36.8–37.7; O2SAT 86–96
[2022-07-03] MEDS: KETOROLAC 15 MG/ML VIAL (*BKC) IV PUSH ×2 (01:51→20:31)
[2022-07-03 05:26] LABS: Basophils Percent Auto 0.3 % (0.2-1.2); Eosinophils Absolute Auto 0.1 K/mm3 (0-0.3); Eosinophils Percent Auto 1.2 % (0-4.4); Hematocrit 32.4 % (37.0-47.0); Hemoglobin 10.4 g/dL (12.0-15.0); Immature Granulocyte Absolute 0.07 K/mm3 (0.00-0.031); Immature Granulocyte Percent A 0.7 % (0-0.5); Lymphocytes Percent Auto 10.7 % (18.3-44.2); Mean Corpuscular HGB Conc 32.1 g/dl (32-36); Mean Corpuscular Hemoglobin 30.9 pg (26-34); Mean Corpuscular Volume 96.1 fl (80-100); Monocytes Absolute Auto 0.9 K/mm3 (0.1-0.6); Monocytes Percent Auto 8.8 % (2.6-8.5); Neutrophils Percent Auto 78.3 % (45.5-73.1); Platelet Count Result 175 k/mm3 (150-375); Red Blood Count 3.37 M/mm3 (4.2-5.4); Red Cell Distribution Width 13.8 % (11.5-14.5); White Blood Count 10.2 K/mm3 (4.5-10.0)
[2022-07-03 05:48] LABS: Alanine Aminotransferase 15 U/L (6-35); Albumin Level 3.3 g/dL (3.5-5.1); Alkaline Phosphatase 68 U/L (38-126); Anion Gap 2 mmol/L (8-16); Aspartate Amino Transferase 22 U/L (14-36); Blood Urea Nitrogen 18 mg/dL (7-17); Calcium 8.2 mg/dL (8.4-10.2); Carbon Dioxide 31 mmol/L (22-30); Chloride 104 mmol/L (98-107); Estimated CRCL calculation 66 ml/min; Estimated Glomerular Filt Rate > 60; Glucose 199 mg/dL (65-110); Potassium 3.8 mmol/L (3.4-5.0); Sodium 137 mmol/L (137-145)
[2022-07-03] MEDS: ALBUTEROL SULFATE (*SP) AEROSOL 1 PUFF 2 PUFF INHALATION ×3 (06:32→13:33)
[2022-07-03 08:25] LABS: Glucose Point of Care 208 mg/dl (65-105)
[2022-07-03] MEDS: PANTOPRAZOLE SODIUM IV 40 MG VIAL IV PUSH (08:42)
[2022-07-03] MEDS: LIDOCAINE 5% PATCH 1 PATCH TRANSDERM ×2 (08:42→22:29)
[2022-07-03] MEDS: INSULIN ASPART (*BKC) 100 UNITS/ML SUB-Q ×3 (08:42→17:54)
--- NOTE | 2022-07-03 09:45 | PM.IMPN ---
Progress Note: A&P Assessment and Plan (1) Neck pain: Code(s): M54.2 - Cervicalgia Status: Acute Assessment and Plan: Acute on chronic with unknown etiology, likely musculoskeletal? Suspect reaction to the baclofen, would not continue this medication Previously did not respond to Medrol Dosepaks, will avoid steroids Unaffected by Valium Will treat with heating pad and Lidoderm patch for now, occasional toradol if needed for severe neck pain Check cervical and brain MRI Consult PT/OT (2) Insulin dependent type 2 diabetes mellitus: Code(s): E11.9 - Type 2 diabetes mellitus without complications; Z79.4 - senior care (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 of insulin Status: Acute Assessment and Plan: Accu-Cheks, sliding scale insulin, hypoglycemic protocol, A1c was 7 Patient is on 10 units of NPH 70/30 t.i.d. (3) Gastroesophageal reflux disease: Code(s): K21.9 - Gastro-esophageal reflux disease without esophagitis Status: Acute Assessment and Plan: Continue PPI (4) Acute psychosis: Code(s): F23 - Brief psychotic disorder Status: Acute Assessment and Plan: Likely secondary to baclofen Supportive care at this time Restraints removed, continue sitter (5) Chronic systolic (congestive) heart failure: Code(s): I50.22 - Chronic systolic (congestive) heart failure Status: Acute Assessment and Plan: hypervolemic after IVF overnight check CXR, give lasix IV x 1 and restart home meds (6) Hepatic steatosis: Code(s): K76.0 - Fatty (change of) liver, not elsewhere classified Status: Chronic Assessment and Plan: LFT stable (7) Gout: Code(s): M10.9 - Gout, unspecified Status: Acute Assessment and Plan: Does not appear to be in an acute flare (8) Hypokalemia: Code(s): E87.6 - Hypokalemia Status: Acute Assessment and Plan: resolved, monitor Plan DVT prophylaxis with SCDs GI prophylaxis not indicated Code status full code Subjective Date/time seen: 07/03/22 09:45 Interval history: 81-year-old female with history of insulin-dependent diabetes, hypertension, recurrent gout, GERD, fatty liver, among other comorbidities is presenting with acute on chronic neck pain as well as altered mental status including paranoid delusions and severe combative behavior requiring multiple people to restrain her. Of note, she had recently been prescribed baclofen and had taken [address] Imaging of the cervical spine and head were unremarkable. Overnight patient became hypoxic after receiving significant IV fluids and home diuretics held. She was placed 1-2L nc and satting around 92-93%. Mentation seems improved per son at bedside and nursing staff, but still some residual confusion at times. No fevers, chills. Review of Systems Review of Systems: 12 point review of systems was assessed and was negative except as noted in the HPI Exam Narrative: General: Alert, oriented to self, intermittently confused HEENT: Atraumatic, normocephalic, mucous membranes moist CV: Regular rate and rhythm, S1, S2 Lungs: Clear to auscultation bilaterally, somewhat diminished at bases Abdomen: Soft, nontender, nondistended Extremities: Normal to inspection, 1+ edema B/L Skin: No rashes noted, no lesions or wounds seen Objective Data Vital Signs Vital Signs: Vital Signs - 24 hr 07/02/22 11:56 07/02/22 11:56 07/02/22 12:00 Temperature Pulse Rate 95 22 L 90 Respiratory Rate 22 H 18 Blood Pressure Pulse Oximetry 91 Oxygen Delivery Room Air Oxygen Flow Rate Fraction of Inspired Oxygen 21 07/02/22 12:00 07/02/22 14:00 07/02/22 16:00 Temperature 98.1 F 98.4 F 98.6 F Pulse Rate 92 96 98 Respiratory Rate 18 18 22 H Blood Pressure 149/61 H 166/61 H 156/84 H Pulse Oximetry 96 96 93 Oxygen Delivery Oxygen Flow Rate Fraction of Inspired Oxygen 07/02/22
[2022-07-03] MEDS: DOXAZOSIN MESYLATE 4 MG TABLET PO ×2 (11:27→20:31)
[2022-07-03] MEDS: FEBUXOSTAT 40 MG TABLET PO (11:27)
[2022-07-03] MEDS: FUROSEMIDE INJ 100 MG/10 ML VIAL 80 MG IV PUSH (11:28)
[2022-07-03] MEDS: lisinopriL 20 MG TABLET PO ×2 (11:28→20:31)
[2022-07-03] MEDS: METOPROLOL TARTRATE 50 MG TAB 100 MG PO ×2 (11:29→20:31)
[2022-07-03 12:17] LABS: Glucose Point of Care 244 mg/dl (65-105)
--- NOTE | 2022-07-03 17:05 | PC.NURSE ---
BID meds to be administered at 2100 with hs med pass due to timing from initial dose
[2022-07-03 17:14] LABS: Glucose Point of Care 215 mg/dl (65-105)
[2022-07-03] MEDS: INSULIN HUMAN ISOPHAN/REGULAR 70/30 (*BKC) 100 UNITS/ML 10 UNITS SUB-Q (17:54)
[2022-07-03] MEDS: FUROSEMIDE INJ 40 MG/4 ML VIAL IV PUSH (18:03)
[2022-07-03] MEDS: minoxidiL 10 MG TABLET PO (20:31)
[2022-07-03 20:54] LABS: Glucose Point of Care 146 mg/dl (65-105)
[2022-07-04] VITALS (12 sets, daily range): BP systolic 90–114; BP diastolic 40–60; PULSE 61–92; RESP 16–20; TEMP 36.6–37.4; O2SAT 10–97
[2022-07-04] MEDS: ALBUTEROL SULFATE (*SP) AEROSOL 1 PUFF 2 PUFF INHALATION ×2 (03:46→20:07)
[2022-07-04 05:50] LABS: Basophils Absolute Auto 0.1 K/mm3 (0.0-0.1); Basophils Percent Auto 0.5 % (0.2-1.2); Eosinophils Absolute Auto 0.3 K/mm3 (0-0.3); Eosinophils Percent Auto 3.4 % (0-4.4); Hematocrit 31.5 % (37.0-47.0); Hemoglobin 10.1 g/dL (12.0-15.0); Immature Granulocyte Absolute 0.04 K/mm3 (0.00-0.031); Immature Granulocyte Percent A 0.4 % (0-0.5); Lymphocytes Percent Auto 14.3 % (18.3-44.2); Mean Corpuscular HGB Conc 32.1 g/dl (32-36); Mean Corpuscular Hemoglobin 30.1 pg (26-34); Monocytes Absolute Auto 0.9 K/mm3 (0.1-0.6); Monocytes Percent Auto 9.5 % (2.6-8.5); Neutrophils Percent Auto 71.9 % (45.5-73.1); Platelet Count Result 163 k/mm3 (150-375); Red Blood Count 3.35 M/mm3 (4.2-5.4); Red Cell Distribution Width 13.9 % (11.5-14.5); White Blood Count 9.8 K/mm3 (4.5-10.0)
[2022-07-04 06:06] LABS: Alanine Aminotransferase 15 U/L (6-35); Albumin Level 3.2 g/dL (3.5-5.1); Alkaline Phosphatase 68 U/L (38-126); Anion Gap 1 mmol/L (8-16); Aspartate Amino Transferase 22 U/L (14-36); Blood Urea Nitrogen 30 mg/dL (7-17); Carbon Dioxide 37 mmol/L (22-30); Chloride 97 mmol/L (98-107); Estimated CRCL calculation 36 ml/min; Estimated Glomerular Filt Rate 53; Glucose 137 mg/dL (65-110); Potassium 3.4 mmol/L (3.4-5.0); Sodium 135 mmol/L (137-145)
[2022-07-04 08:16] LABS: Glucose Point of Care 180 mg/dl (65-105)
[2022-07-04] MEDS: INSULIN HUMAN ISOPHAN/REGULAR 70/30 (*BKC) 100 UNITS/ML 10 UNITS SUB-Q ×3 (09:32→17:53)
[2022-07-04] MEDS: PANTOPRAZOLE 40 MG TABLET PO (09:33)
[2022-07-04] MEDS: FEBUXOSTAT 40 MG TABLET PO (09:33)
[2022-07-04] MEDS: metOLazone 2.5 MG TABLET PO (09:33)
[2022-07-04] MEDS: lisinopriL 20 MG TABLET PO (09:33)
[2022-07-04] MEDS: FUROSEMIDE 80 MG TABLET PO (09:33)
[2022-07-04] MEDS: DOXAZOSIN MESYLATE 4 MG TABLET PO ×2 (09:34→17:53)
[2022-07-04] MEDS: METOPROLOL TARTRATE 50 MG TAB 100 MG PO (09:34)
--- NOTE | 2022-07-04 09:37 | PM.IMPN ---
Progress Note: A&P Assessment and Plan (1) Neck pain: Code(s): M54.2 - Cervicalgia Status: Acute Assessment and Plan: Acute on chronic with unknown etiology, likely musculoskeletal? Suspect reaction to the baclofen, would not continue this medication Previously did not respond to Medrol Dosepaks, will avoid steroids, unaffected by Valium Will treat with heating pad and Lidoderm patch for now, occasional toradol if needed for severe neck pain Check cervical and brain MRI, report pending Consult PT/OT (2) Insulin dependent type 2 diabetes mellitus: Code(s): E11.9 - Type 2 diabetes mellitus without complications; Z79.4 - detention (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 of insulin Status: Acute Assessment and Plan: Accu-Cheks, sliding scale insulin, hypoglycemic protocol, A1c was 7 Patient is on 10 units of NPH 70/30 t.i.d. (3) Gastroesophageal reflux disease: Code(s): K21.9 - Gastro-esophageal reflux disease without esophagitis Status: Acute Assessment and Plan: Continue PPI (4) Acute psychosis: Code(s): F23 - Brief psychotic disorder Status: Acute Assessment and Plan: Likely secondary to baclofen Supportive care at this time Restraints removed, sitter discontinue Appears resolved (5) Chronic systolic (congestive) heart failure: Code(s): I50.22 - Chronic systolic (congestive) heart failure Status: Acute Assessment and Plan: Restarted home diuretics, chest x-ray showed pulmonary congestion versus pleural effusion, repeat chest x-ray today shows no congestion Continue diuretics at current dose (6) Hepatic steatosis: Code(s): K76.0 - Fatty (change of) liver, not elsewhere classified Status: Chronic Assessment and Plan: LFT stable (7) Gout: Code(s): M10.9 - Gout, unspecified Status: Acute Assessment and Plan: Does not appear to be in an acute flare (8) Hypokalemia: Code(s): E87.6 - Hypokalemia Status: Acute Assessment and Plan: Resolved (9) Left foot pain: Code(s): M79.672 - Pain in left foot Status: Acute Assessment and Plan: Unsure of etiology, previously treated with a Medrol Dosepak for possible gout, she did have elevated serum uric acid when the presentation of her pain started in February 2022 per family, no trauma Check CT scan, x-ray in the past was negative Plan DVT prophylaxis with SCDs GI prophylaxis not indicated Code status full code Subjective Date/time seen: 07/04/22 09:37 Interval history: 81-year-old female with history of insulin-dependent diabetes, hypertension, recurrent gout, GERD, fatty liver, among other comorbidities is presenting with acute on chronic neck pain as well as altered mental status including paranoid delusions and severe combative behavior requiring multiple people to restrain her. Of note, she had recently been prescribed baclofen and had taken [address] Imaging of the cervical spine and head were unremarkable. 07/03: Overnight patient became hypoxic after receiving significant IV fluids and home diuretics held. She was placed 1-2L nc and satting around 92-93%. Mentation seems improved per son at bedside and nursing staff, but still some residual confusion at times. No fevers, chills. 07/04: Remains 94% on 1L nc. Also complaining of left foot pain, no trauma or injury to the foot, x-rays were negative in February when the symptoms started, it has been intermittent since February 2022. Neck pain seems stable from yesterday. Mentation very close to baseline, somewhat tired after getting Benadryl for her MRI. Review of Systems Review of Systems: 12 point review of systems was assessed and was negative except as noted in the HPI Exam Narrative: General: Alert, oriented to self, intermittently confused HEENT: Atraumatic, normocephalic, mucous membranes moist CV: Regular rate and rhythm
[2022-07-04] MEDS: KETOROLAC 15 MG/ML VIAL (*BKC) IV PUSH (10:15)
[2022-07-04] MEDS: diphenhydrAMINE HCl CAP 25 MG CAPSULE PO (10:44)
[2022-07-04 12:28] LABS: Glucose Point of Care 267 mg/dl (65-105)
[2022-07-04] MEDS: INSULIN ASPART (*BKC) 100 UNITS/ML SUB-Q (12:57)
[2022-07-04] MEDS: LIDOCAINE 5% PATCH 1 PATCH TRANSDERM (13:01)
[2022-07-04 17:14] LABS: Glucose Point of Care 111 mg/dl (65-105)
[2022-07-04 20:05] LABS: Glucose Point of Care 210 mg/dl (65-105)
[2022-07-04] MEDS: minoxidiL 10 MG TABLET PO (21:24)
[2022-07-05] VITALS (12 sets, daily range): BP systolic 101–152; BP diastolic 41–50; PULSE 72–102; RESP 17–20; TEMP 36.2–37.3; O2SAT 90–97
[2022-07-05 05:54] LABS: Basophils Percent Auto 0.3 % (0.2-1.2); Eosinophils Absolute Auto 0.3 K/mm3 (0-0.3); Eosinophils Percent Auto 2.6 % (0-4.4); Hematocrit 28.8 % (37.0-47.0); Hemoglobin 9.5 g/dL (12.0-15.0); Immature Granulocyte Absolute 0.05 K/mm3 (0.00-0.031); Immature Granulocyte Percent A 0.5 % (0-0.5); Lymphocytes Absolute Auto 1.35 K/mm3 (0.9-3.2); Lymphocytes Percent Auto 14.2 % (18.3-44.2); Mean Corpuscular Hemoglobin 30.4 pg (26-34); Mean Platelet Volume 10.2 fl (7.4-10.4); Monocytes Absolute Auto 0.9 K/mm3 (0.1-0.6); Monocytes Percent Auto 9.3 % (2.6-8.5); Neutrophils Percent Auto 73.1 % (45.5-73.1); Platelet Count Result 154 k/mm3 (150-375); Red Blood Count 3.13 M/mm3 (4.2-5.4); Red Cell Distribution Width 13.6 % (11.5-14.5); White Blood Count 9.5 K/mm3 (4.5-10.0)
[2022-07-05 06:04] LABS: Alanine Aminotransferase 14 U/L (6-35); Albumin Level 2.8 g/dL (3.5-5.1); Alkaline Phosphatase 65 U/L (38-126); Anion Gap 2 mmol/L (8-16); Aspartate Amino Transferase 19 U/L (14-36); Bilirubin,Total 0.8 mg/dL (0.2-1.3); Blood Urea Nitrogen 43 mg/dL (7-17); Calcium 7.7 mg/dL (8.4-10.2); Carbon Dioxide 38 mmol/L (22-30); Chloride 98 mmol/L (98-107); Estimated CRCL calculation 33 ml/min; Estimated Glomerular Filt Rate 48; Glucose 119 mg/dL (65-110); Potassium 3.1 mmol/L (3.4-5.0); Sodium 138 mmol/L (137-145)
[2022-07-05] MEDS: ALBUTEROL SULFATE (*SP) AEROSOL 1 PUFF 2 PUFF INHALATION (07:36)
[2022-07-05 08:26] LABS: Glucose Point of Care 164 mg/dl (65-105)
[2022-07-05] MEDS: INSULIN HUMAN ISOPHAN/REGULAR 70/30 (*BKC) 100 UNITS/ML 10 UNITS SUB-Q ×3 (08:33→16:48)
[2022-07-05] MEDS: PANTOPRAZOLE 40 MG TABLET PO (08:37)
[2022-07-05] MEDS: FUROSEMIDE 80 MG TABLET PO (08:37)
[2022-07-05] MEDS: FEBUXOSTAT 40 MG TABLET PO (08:37)
[2022-07-05] MEDS: DOXAZOSIN MESYLATE 4 MG TABLET PO ×2 (08:37→17:13)
--- NOTE | 2022-07-05 09:37 | PM.IMPN ---
Progress Note: A&P Assessment and Plan (1) Neck pain: Code(s): M54.2 - Cervicalgia Status: Acute Assessment and Plan: MRI changes noted, some foraminal narrowing seen Consult placed to NS due to paresthesias and worsening, severe pain (2) Insulin dependent type 2 diabetes mellitus: Code(s): E11.9 - Type 2 diabetes mellitus without complications; Z79.4 - bed bug exterminator (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 of insulin Status: Acute Assessment and Plan: Accu-Cheks, sliding scale insulin, hypoglycemic protocol, A1c was 7 Patient is on 10 units of NPH 70/30 t.i.d. (3) Gastroesophageal reflux disease: Code(s): K21.9 - Gastro-esophageal reflux disease without esophagitis Status: Acute Assessment and Plan: Continue PPI (4) Acute psychosis: Code(s): F23 - Brief psychotic disorder Status: Acute Assessment and Plan: Resolved, likely 2/2 baclofen + valium (5) Chronic systolic (congestive) heart failure: Code(s): I50.22 - Chronic systolic (congestive) heart failure Status: Acute Assessment and Plan: Monitor repeat CXR, initially had some congestion, resolved on repeat CXR, this then showed atelectasis, IS encouraged, up to chair as much as possible, ambulate Appears euvolemic, suspect mild hypoxia 2/2 atelectasis Hold metolazone today, give lasix home oral dose (6) Hepatic steatosis: Code(s): K76.0 - Fatty (change of) liver, not elsewhere classified Status: Chronic Assessment and Plan: LFT stable (7) Gout: Code(s): M10.9 - Gout, unspecified Status: Acute Assessment and Plan: Does not appear to be in an acute flare Do not suspect h/o gout, this was diagnosed based on elevated serum uric acid level and ankle pain, suspect elevated uric acid was 2/2 diuretic use and pain was 2/2 arthritis and ankle sprain noted below (8) Hypokalemia: Code(s): E87.6 - Hypokalemia Status: Acute Assessment and Plan: Monitor with diuretic use (9) Left foot pain: Code(s): M79.672 - Pain in left foot Status: Acute Assessment and Plan: 07/05: CT left foot and ankle showing osteophytes along the lateral malleolus suggesting chronic sprains of the anterior talofibular and calcaneofibular ligaments with 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 This is most likely the etiology to her pain, will consult Orthopedic surgery for recommendations regarding possible splinting and continue PT/OT (10) Hypotension: Code(s): I95.9 - Hypotension, unspecified Status: Acute Assessment and Plan: could be due to overdiuresis, will hold metolazone and monitor will also d/c minoxidil as this can cause water retention and worsen HF Plan DVT prophylaxis with SCDs GI prophylaxis not indicated Code status full code Subjective Date/time seen: 07/05/22 09:37 Interval history: 81-year-old female with history of insulin-dependent diabetes, hypertension, recurrent gout, GERD, fatty liver, among other comorbidities is presenting with acute on chronic neck pain as well as altered mental status including paranoid delusions and severe combative behavior requiring multiple people to restrain her. Of note, she had recently been prescribed baclofen and had taken [address] Imaging of the cervical spine and head were unremarkable. 07/03: Overnight patient became hypoxic after receiving significant IV fluids and home diuretics held. She was placed 1-2L nc and satting around 92-93%. Mentation seems improved per son at bedside and nursing staff, but still some residual confusion at times. No fevers, chills. 07/04: Remains 94% on 1L nc. Also complaining of left foot pain, no trauma or injury to the foot, x-rays were negative in February when the symptoms started, it has been intermittent since February 2022. Neck pain seems stable from yesterday. Mentation very close to baseline, some
[2022-07-05] MEDS: LIDOCAINE 5% PATCH 1 PATCH TRANSDERM ×2 (10:07→10:13)
[2022-07-05 11:50] LABS: Glucose Point of Care 270 mg/dl (65-105)
[2022-07-05] MEDS: INSULIN ASPART (*BKC) 100 UNITS/ML SUB-Q ×2 (11:57→16:48)
--- NOTE | 2022-07-05 15:57 | PM.CNOR ---
Assessment and Plan Assessment and plan (1) Left foot pain: Code(s): M79.672 - Pain in left foot Status: Acute Plan Left foot pain and swelling, denies any known injury or fall. CT shows chronic sprains and polyarticular arthritis. Although uric Acid is elevated, agree that this does not look like an acute gouty flare. Will treat as a strain, continue to mobilize with therapy as tolerated. History of Present Illness HPI Consult date: 07/05/22 Consult reason: joint pain (Ankle and foot pain) Chief complaint: Drug Side Effect, Acute Psychosis Narrative: 81 year old female with foot/ankle pain and swelling. She denies any known injury/trauma/fall. No significant bruising or redness. She does report being diagnosed with gout due to an elevated uric acid and foot swelling in February of 2022. When attempting to transfer with the [facility], she noted bilateral ankle pain. 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, right eye, intermediate dry stage Overactive bladder Surgical History Surgical History History of cholecystectomy History of repair of rotator cuff Family History Family History Father Asthma Cerebrovascular accident Family history of diabetes mellitus in first degree relative Sibling Family history of diabetes mellitus in first degree relative Family history of malignant neoplasm of urinary bladder Mother Family history of heart disease in male family member before age 55 Other Family history of arthritis Hypertension Social History Social History Social History: Surrogate medical decision maker: Julio Ventura, gila. Code status: Full code. Smoking packs per day: 1 Smoking cigarettes per day: 20.0 Years smoked: 15 Smoking pack-years: 15.00 Smoking status: Former smoker Tobacco type: cigarettes Second hand tobacco smoke exposure: No Alcohol intake: never Substance use: never Substance use type: does not use Living arrangements: with family Additional living arrangements comments: Lives in [place]. Son Julio stays with her. Occupation/Education: retired Spiritual care concerns: No Meds Home Medications and Allergies Home Medications Medication Instructions Recorded Confirmed Type flash glucose scanning reader #1 ea 10/05/21 07/02/22 Rx (FreeStyle Calixto 14 Day [place]) pen needle, diabetic 31 gauge x #150 ea 05/28/22 07/02/22 Rx 15/ lisinopril 20 mg tablet 20 mg PO BID #180 tabs 05/31/22 07/01/22 Rx metolazone 2.5 mg tablet 2.5 mg PO DAILY #90 tabs 05/31/22 07/01/22 Rx pantoprazole 40 mg tablet,delayed 40 mg PO QAM #90 tabs 05/31/22 07/01/22 Rx release albuterol sulfate 90 mcg/actuation 2 inh inhalation Q2H PRN shortness 06/07/22 07/01/22 Rx aerosol inhaler of breath or wheezing #8.5 grams febuxostat 40 mg tablet 40 mg PO DAILY #90 tabs 06/07/22 07/02/22 Rx flash glucose sensor ([employer] #7 kits 06/07/22 07/02/22 Rx Calixto 14 Day Sensor kit) furosemide 80 mg tablet 80 mg PO QAM #90 tabs 06/07/22 07/01/22 Rx metoprolol tartrate 100 mg tablet 100 mg PO BID #180 tabs 06/07/22 07/01/22 Rx doxazosin 4 mg tablet 4 mg PO BID 07/01/22 07/01/22 History insulin NPH-regular 70
[2022-07-05 16:45] LABS: Glucose Point of Care 234 mg/dl (65-105)
--- NOTE | 2022-07-05 17:36 | WPDNEUROSGCN ---
Assessment and Plan Assessment and plan (1) Cervical spondylosis: Code(s): M47.812 - Spondylosis without myelopathy or radiculopathy, cervical region Status: Acute Assessment and Plan: Constanza is an 81-year-old female who is admitted with mental status changes and difficulty ambulating for a week or 2 and with neck pain radiating into her head. I do not see any lesions in the cervical spine either bony or within the spinal cord that invite confident surgical intervention at this point for her current symptoms. There is enough arthritis to explain neck discomfort and even significant pain but her pain is actually improving. I recommend physical and occupational therapy be involved in her care and her progress be monitored until arrangements can be made for her disposition. Should some other issue present itself then additional workup could be ordered. Currently I do not have any good reason to scan the rest of her spine. Review of Systems Constitutional: Constitutional: Reports body ache(s), Reports fatigue, Reports lethargy and Reports weakness Eyes: Eyes: Reports as per HPI ENT: Reports system reviewed and no additional complaints, except as documented Cardiovascular: Cardiovascular: Reports as per HPI and Reports no additional cardiovascular complaints Respiratory: Respiratory: Reports as per HPI and Reports no additional respiratory complaints Gastrointestinal: Gastrointestinal: Reports as per HPI and Reports no additional gastrointestinal complaints Genitourinary: Genitourinary: Reports no additional female genitourinary complaints and Reports as per HPI Musculoskeletal: Musculoskeletal: Reports neck pain Neurologic: Reports abnormal gait, Reports confusion and Reports weakness Psychiatric: Psychiatric: Reports as per HPI and Reports confusion [facility] Past Medical History Medical History Acquired hypertriglyceridemia Age related osteoporosis Aortic atherosclerosis Exudative age-related macular degeneration, left eye, with inactive choroidal neovascularization Gastroesophageal reflux disease Gout Hepatic steatosis Hypertension 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, right eye, intermediate dry stage Overactive bladder Surgical History Surgical History History of cholecystectomy History of repair of rotator cuff Family History Family History Father Asthma Cerebrovascular accident Family history of diabetes mellitus in first degree relative Sibling Family history of diabetes mellitus in first degree relative Family history of malignant neoplasm of urinary bladder Mother Family history of heart disease in male family member before age 55 Other Family history of arthritis Hypertension Social History Social History Social History: Surrogate medical decision maker: Julio Ventura, son. Code status: Full code. Smoking packs per day: 1 Smoking cigarettes per day: 20.0 Years smoked: 15 Smoking pack-years: 15.00 Smoking status: Former smoker Tobacco type: cigarettes Second hand tobacco smoke exposure: No Alcohol intake: never Substance use: never Substance use type: does not use Living arrangements: with family Additional living arrangements comments: Lives in [place]. Son Julio stays with her. Occupation/Education: retired Spiritual care concerns: No Meds Home Medications and Allergies Home Medications Medication Instructions Recorded Confirmed Type flash glucose scanning reader #1 ea 10/05/21 07/02/22 Rx (FreeStyle Calixto 14 Day [place]) pen needle, diabetic 31 gauge x #150 ea 05/28/22 07/02/22 Rx 15/64 lisinopril 20 mg tablet 20 mg PO BID #180 tabs 05/31/22 07/01/22
[2022-07-05 20:54] LABS: Glucose Point of Care 261 mg/dl (65-105)
[2022-07-06] VITALS (8 sets, daily range): BP systolic 116–132; BP diastolic 50–64; PULSE 68–109; RESP 18–20; TEMP 36.3–37.1; O2SAT 91–94
[2022-07-06 06:55] LABS: Basophils Percent Auto 0.5 % (0.2-1.2); Eosinophils Absolute Auto 0.1 K/mm3 (0-0.3); Eosinophils Percent Auto 1.4 % (0-4.4); Hematocrit 31.3 % (37.0-47.0); Hemoglobin 10.3 g/dL (12.0-15.0); Immature Granulocyte Absolute 0.03 K/mm3 (0.00-0.031); Immature Granulocyte Percent A 0.4 % (0-0.5); Lymphocytes Absolute Auto 0.77 K/mm3 (0.9-3.2); Lymphocytes Percent Auto 9.6 % (18.3-44.2); Mean Corpuscular HGB Conc 32.9 g/dl (32-36); Mean Corpuscular Hemoglobin 30.7 pg (26-34); Mean Corpuscular Volume 93.4 fl (80-100); Mean Platelet Volume 9.8 fl (7.4-10.4); Monocytes Absolute Auto 0.8 K/mm3 (0.1-0.6); Monocytes Percent Auto 9.4 % (2.6-8.5); Neutrophils Absolute Auto 6.3 K/mm3 (1.3-6.7); Neutrophils Percent Auto 78.7 % (45.5-73.1); Platelet Count Result 181 k/mm3 (150-375); Red Blood Count 3.35 M/mm3 (4.2-5.4); Red Cell Distribution Width 13.4 % (11.5-14.5)
[2022-07-06 07:04] LABS: Alanine Aminotransferase 14 U/L (6-35); Albumin Level 3.2 g/dL (3.5-5.1); Alkaline Phosphatase 75 U/L (38-126); Anion Gap 6 mmol/L (8-16); Aspartate Amino Transferase 18 U/L (14-36); Bilirubin,Total 1.1 mg/dL (0.2-1.3); Blood Urea Nitrogen 36 mg/dL (7-17); Calcium 8.5 mg/dL (8.4-10.2); Carbon Dioxide 38 mmol/L (22-30); Chloride 96 mmol/L (98-107); Estimated CRCL calculation 50 ml/min; Estimated Glomerular Filt Rate > 60; Glucose 202 mg/dL (65-110); Sodium 140 mmol/L (137-145)
[2022-07-06 08:36] LABS: Glucose Point of Care 249 mg/dl (65-105)
[2022-07-06] MEDS: DOXAZOSIN MESYLATE 4 MG TABLET PO ×2 (08:45→16:47)
[2022-07-06] MEDS: PANTOPRAZOLE 40 MG TABLET PO (08:45)
[2022-07-06] MEDS: FUROSEMIDE 80 MG TABLET PO (08:46)
[2022-07-06] MEDS: LIDOCAINE 5% PATCH 1 PATCH TRANSDERM ×2 (08:49→08:50)
[2022-07-06] MEDS: INSULIN ASPART (*BKC) 100 UNITS/ML SUB-Q ×2 (08:50→12:22)
[2022-07-06] MEDS: INSULIN HUMAN ISOPHAN/REGULAR 70/30 (*BKC) 100 UNITS/ML 10 UNITS SUB-Q ×2 (08:51→12:22)
[2022-07-06] MEDS: METOPROLOL TARTRATE 50 MG TAB 100 MG PO (09:12)
[2022-07-06] MEDS: lisinopriL 20 MG TABLET PO (09:13)
--- NOTE | 2022-07-06 10:59 | PM.IMPN ---
Progress Note: A&P Assessment and Plan (1) Neck pain: Code(s): M54.2 - Cervicalgia Status: Acute Assessment and Plan: MRI changes noted, some foraminal narrowing seen, significant arthritic changes seen Pain is improving, neurosurgery consultation appreciated They are recommending physical therapy first, if this does not work, would recommend following up outpatient for possible cortisone injections as her arthritis progresses (2) Insulin dependent type 2 diabetes mellitus: Code(s): E11.9 - Type 2 diabetes mellitus without complications; Z79.4 - intermediate (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 of insulin Status: Acute Assessment and Plan: Accu-Cheks, sliding scale insulin, hypoglycemic protocol, A1c was 7 Patient is on 10 units of NPH 70/30 t.i.d. (3) Gastroesophageal reflux disease: Code(s): K21.9 - Gastro-esophageal reflux disease without esophagitis Status: Acute Assessment and Plan: Continue PPI (4) Acute psychosis: Code(s): F23 - Brief psychotic disorder Status: Acute Assessment and Plan: Resolved, likely 2/2 baclofen + valium Question underlying dementia contributing to some of the changes seen. Would recommend outpatient neuropsych testing to delineate frontotemporal dementia due to personality changes versus other types of dementia versus depression/anxiety (5) Chronic systolic (congestive) heart failure: Code(s): I50.22 - Chronic systolic (congestive) heart failure Status: Acute Assessment and Plan: Monitor repeat CXR, initially had some congestion, resolved on repeat CXR, this then showed atelectasis, IS encouraged, up to chair as much as possible, ambulate Appears euvolemic, will make metolazone as needed per patient and family request The use this medication when she gains a couple lb or gets very short of breath at home (6) Hepatic steatosis: Code(s): K76.0 - Fatty (change of) liver, not elsewhere classified Status: Chronic Assessment and Plan: LFT stable (7) Gout: Code(s): M10.9 - Gout, unspecified Status: Acute Assessment and Plan: Does not appear to be in an acute flare Do not suspect h/o gout, this was diagnosed based on elevated serum uric acid level and ankle pain, suspect elevated uric acid was 2/2 diuretic use and pain was 2/2 arthritis and ankle sprain noted below Discontinue Uloric (8) Hypokalemia: Code(s): E87.6 - Hypokalemia Status: Acute Assessment and Plan: Monitor with diuretic use (9) Left foot pain: Code(s): M79.672 - Pain in left foot Status: Acute Assessment and Plan: 07/05: CT left foot and ankle showing osteophytes along the lateral malleolus suggesting chronic sprains of the anterior talofibular and calcaneofibular ligaments with 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 This is most likely the etiology to her pain, will consult Orthopedic surgery for recommendations regarding possible splinting and continue PT/OT 07/06: Appreciate orthopedic consultation, they are recommending therapy and do not suspect gout (10) Hypotension: Code(s): I95.9 - Hypotension, unspecified Status: Acute Assessment and Plan: 07/05: could be due to overdiuresis, will hold metolazone and monitor, will also d/c minoxidil as this can cause water retention and worsen HF 07/06: resolved Plan DVT prophylaxis with SCDs GI prophylaxis not indicated Code status full code Subjective Date/time seen: 07/06/22 10:59 Interval history: 81-year-old female with history of insulin-dependent diabetes, hypertension, recurrent gout, GERD, fatty liver, among other comorbidities is presenting with acute on chronic neck pain as well as altered mental status including paranoid delusions and severe combative behavior requiring multiple people to restrain her. Of note, she had recently been prescribed baclofen and had ta
[2022-07-06 11:52] LABS: Glucose Point of Care 221 mg/dl (65-105)
[2022-07-06] MEDS: POTASSIUM CHLORIDE 20 MEQ TABLET 80 MEQ PO (12:10)
[2022-07-06 16:54] LABS: Glucose Point of Care 68 mg/dl (65-105)
[2022-07-06 17:17] LABS: Glucose Point of Care 182 mg/dl (65-105)
[2022-07-06 20:40] LABS: Glucose Point of Care 309 mg/dl (65-105)
[2022-07-07] VITALS (7 sets, daily range): BP systolic 130–143; BP diastolic 54–67; PULSE 76–86; RESP 17–20; TEMP 36.4–38.2; O2SAT 90–96
[2022-07-07 05:39] LABS: Basophils Percent Auto 0.5 % (0.2-1.2); Eosinophils Absolute Auto 0.2 K/mm3 (0-0.3); Hematocrit 31.3 % (37.0-47.0); Hemoglobin 10.1 g/dL (12.0-15.0); Immature Granulocyte Absolute 0.07 K/mm3 (0.00-0.031); Immature Granulocyte Percent A 0.8 % (0-0.5); Lymphocytes Percent Auto 16.2 % (18.3-44.2); Mean Corpuscular HGB Conc 32.3 g/dl (32-36); Mean Corpuscular Hemoglobin 29.9 pg (26-34); Mean Corpuscular Volume 92.6 fl (80-100); Mean Platelet Volume 9.8 fl (7.4-10.4); Monocytes Absolute Auto 1.1 K/mm3 (0.1-0.6); Monocytes Percent Auto 12.5 % (2.6-8.5); Neutrophils Absolute Auto 5.9 K/mm3 (1.3-6.7); Platelet Count Result 209 k/mm3 (150-375); Red Blood Count 3.38 M/mm3 (4.2-5.4); Red Cell Distribution Width 13.7 % (11.5-14.5); White Blood Count 8.6 K/mm3 (4.5-10.0)
[2022-07-07 05:53] LABS: Alanine Aminotransferase 15 U/L (6-35); Albumin Level 3.4 g/dL (3.5-5.1); Alkaline Phosphatase 79 U/L (38-126); Aspartate Amino Transferase 19 U/L (14-36); Bilirubin,Total 0.8 mg/dL (0.2-1.3); Blood Urea Nitrogen 33 mg/dL (7-17); Calcium 8.8 mg/dL (8.4-10.2); Carbon Dioxide > 40 mmol/L (22-30); Chloride 95 mmol/L (98-107); Estimated CRCL calculation 36 ml/min; Estimated Glomerular Filt Rate 53; Glucose 202 mg/dL (65-110); Potassium 3.4 mmol/L (3.4-5.0); Sodium 136 mmol/L (137-145)
[2022-07-07 08:29] LABS: Glucose Point of Care 214 mg/dl (65-105)
[2022-07-07] MEDS: CYANOCOBALAMIN 1,000 MCG TABLET 1000 MCG PO (09:18)
[2022-07-07] MEDS: CYANOCOBALAMIN INJ 1,000 MCG/ML VIAL 1000 MCG IM (09:18)
[2022-07-07] MEDS: DOXAZOSIN MESYLATE 4 MG TABLET PO (09:19)
[2022-07-07] MEDS: FUROSEMIDE 80 MG TABLET PO (09:19)
[2022-07-07] MEDS: lisinopriL 20 MG TABLET PO (09:21)
[2022-07-07] MEDS: LIDOCAINE 5% PATCH 1 PATCH TRANSDERM (09:21)
[2022-07-07] MEDS: PANTOPRAZOLE 40 MG TABLET PO (09:22)
[2022-07-07] MEDS: METOPROLOL TARTRATE 50 MG TAB 100 MG PO (09:22)
[2022-07-07] MEDS: INSULIN HUMAN ISOPHAN/REGULAR 70/30 (*BKC) 100 UNITS/ML 10 UNITS SUB-Q ×2 (10:05→12:40)
[2022-07-07] MEDS: INSULIN ASPART (*BKC) 100 UNITS/ML SUB-Q ×2 (10:05→12:38)
[2022-07-07 10:09] LABS: Glucose Point of Care 226 mg/dl (65-105)
[2022-07-07 11:53] LABS: Glucose Point of Care 291 mg/dl (65-105)
[2022-07-07 12:47] LABS: Glucose Point of Care 250 mg/dl (65-105)
--- NOTE | 2022-07-07 14:29 | PM.DS ---
DS: Admitting Diagnosis Discharge Date 07/07/22 Admitting Diagnosis Altered mental status DS: Discharge Diagnosis Discharge Diagnosis (1) Neck pain: Code(s): M54.2 - Cervicalgia Status: Acute (2) Insulin dependent type 2 diabetes mellitus: Code(s): E11.9 - Type 2 diabetes mellitus without complications; Z79.4 - long term care phlebotomist (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 of insulin Status: Acute (3) Gastroesophageal reflux disease: Code(s): K21.9 - Gastro-esophageal reflux disease without esophagitis Status: Acute (4) Acute psychosis: Code(s): F23 - Brief psychotic disorder Status: Acute (5) Chronic systolic (congestive) heart failure: Code(s): I50.22 - Chronic systolic (congestive) heart failure Status: Acute (6) Hepatic steatosis: Code(s): K76.0 - Fatty (change of) liver, not elsewhere classified Status: Chronic (7) Gout: Code(s): M10.9 - Gout, unspecified Status: Acute (8) Hypokalemia: Code(s): E87.6 - Hypokalemia Status: Acute (9) Left foot pain: Code(s): M79.672 - Pain in left foot Status: Acute (10) Hypotension: Code(s): I95.9 - Hypotension, unspecified Status: Acute (11) B12 deficiency: Code(s): E53.8 - Deficiency of other specified B group vitamins Status: Acute DS: Summary Hospital Course Reason for hospitalization: 81yo female with DM and HTN here for altered mental status. Please see H&P for details Hospital Course: Patient was too weak to get off of the toilet and she was very somnolent so family called 911. On arrival to ED she was and combative and yelling. Four people were holding her down and she was still trying to jump out of the bed. She was paranoid and thought her son was trying to kill her. In the ED she was given lorazepam 2 mg IM and olanzapine 10 mg IM with improvement. Cervical spine CT and head CT were unremarkable. UDS negative. Alcohol negative. UA clear. Urin acid 8.9. LFTs normal. Ammonia <9. TSH normal. B12 level low and this was replaced. Brain MRI showing no acute process. Cervical spine MRI showing minimal degenerative spondylosis. Neurosurgery was consulted with plans for patietn to work with therapy. Left lower Extremity CT shows mild polyarticular osteoarthritis the left foot and ankle. There are osteophytes noted as well. Please see report for details. Blood cultures were negative. Patient's mental status improved. She worked therapy. She a clinical improvement. She was able be discharged home with home health on 07/07/2022. She did not want to go to a skilled facility at this time. Discharge instructions were discussed with the patient. Status at Discharge Cognitive/behavioral status at discharge: Stable Time Spent with Patient Time attestation: Total time spent providing and/or coordinating discharge services: 36 minutes Exam Narrative: Tm 100.8 overnight but patient denies cough, urinary symptoms or rash. No further elevated temperatures. No abd or back pain. Neck pain is 'mild'. No CP or SOB. Mild left ankle pain 98.7 131/61 76 17 96%ra Gen - NARD Chest - CTA bilaterally, nml RR CV - RRR S1/S2 Abd - Soft, NT/ND, Positive BS Ext - trace pedal edema Psych - Nml mood and affect Skin - Warm and dry DS: Data Data Completed and Pending Labs on day of discharge: Labs from last 24 hours 07/07/22 07/07/22 07/07/22 12:37 11:49 10:05 WBC RBC Hgb Hct MCV MCH MCHC RDW Plt Count MPV Immature Gran % (Auto) Neut % (Auto) Lymph % (Auto) [place] % (Auto) Eos % (Auto) Baso % (Auto) Lymph # (Auto) [place] # (Auto) Eos # (Auto) Baso # (Auto) Abs Immat Gran (auto) Absolute Neuts (auto) Absolute Nucleated RBC Nucleated RBC % Sodium Potassium Chloride Carbon Dioxide Anion Gap BUN Creatinine Estim Creat Clear Calc Estimated GFR Glucose
== END 2022-07-07 15:23 | disposition home health service (06) | DRG 885 ==
LOC: ANHED 13:41 → ANH3MEDSUR 16:07 → ANH2MED 16:55
PROVIDERS: Physician Assistant; Admitting Provider Chiropractor; Emergency Provider Emergency Medicine; PCP Family Medicine Adolescent Medicine; Visit Provider Student in an Organized Health Care Education/Training Program
DX: F23 Brief psychotic disorder (principal); I50.22 Chronic systolic (congestive) heart failure; T42.8X5A Adverse effect of antiparkinsonism drugs and other central muscle-tone depressants, initial encounter; F22 Delusional disorders; M48.02 Spinal stenosis, cervical region; M47.812 Spondylosis without myelopathy or radiculopathy, cervical region; Z20.822 Contact with and (suspected) exposure to COVID-19; E79.0 Hyperuricemia without signs of inflammatory arthritis and tophaceous disease; E11.3291 Type 2 diabetes mellitus with mild nonproliferative diabetic retinopathy without macular edema, right eye; E53.8 Deficiency of other specified B group vitamins; E87.6 Hypokalemia; E78.1 Pure hyperglyceridemia; H35.30 Unspecified macular degeneration; I11.0 Hypertensive heart disease with heart failure; I95.9 Hypotension, unspecified; K52.9 Noninfective gastroenteritis and colitis, unspecified; K21.9 Gastro-esophageal reflux disease without esophagitis; K76.0 Fatty (change of) liver, not elsewhere classified; M54.2 Cervicalgia; M81.0 Age-related osteoporosis without current pathological fracture; M19.072 Primary osteoarthritis, left ankle and foot; M25.775 Osteophyte, left foot; R09.02 Hypoxemia; Z79.4 Long term (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 of insulin; Z88.0 Allergy status to penicillin; Z90.49 Acquired absence of other specified parts of digestive tract; Z87.891 Personal history of nicotine dependence
CPT/HCPCS: 36415; 36600; 70450; 70551; 71045; 72125; 72141; 73700; 80053; 80307; 81003; 82140; 82375; 82550; 82607; 82805; 82948; 83036; 83050; 83735; 84443; 84550; 85025; 85027; 85610; 85652; 85730; 86140; 87040; 93005; 93970; 94640; 96360; 96361; 96365; 96366; 96372; 96375; 97110; 97161; 97165; 97530; 97535; 99285; A9270; C9113; G0378; J0131; J1815; J1885; J1940; J2060; J3420; J3480; J7030; J7040

== ENCOUNTER 2022-07-13 13:44 | Outpatient (NON) | payer MEDICARE, SELFPAY ==
[2022-07-13 15:39] LABS: Anion Gap 8 mmol/L (8-16); Blood Urea Nitrogen 34 mg/dL (7-17); Calcium 8.5 mg/dL (8.4-10.2); Carbon Dioxide 38 mmol/L (22-30); Chloride 95 mmol/L (98-107); Estimated Glomerular Filt Rate 60; Glucose 194 mg/dL (65-110); Potassium 3.3 mmol/L (3.4-5.0); Sodium 141 mmol/L (137-145)
== END 2022-07-13 13:45 | disposition home or self-care (01) ==
LOC: HOME HLTH 13:48
PROVIDERS: PCP Family Medicine Adolescent Medicine; Visit Provider Family Medicine Adolescent Medicine
DX: M47.812 Spondylosis without myelopathy or radiculopathy, cervical region (principal); M79.672 Pain in left foot; I10 Essential (primary) hypertension; I50.22 Chronic systolic (congestive) heart failure
CPT/HCPCS: 80048

== ENCOUNTER → 2023-02-21 11:42 | Outpatient (CLI) | payer MEDICARE, SELFPAY ==
--- NOTE | ~2023-02-21 | XR_ITS ---
XR foot RT 2V DATE: 02/21/2023 11:59 INDICATION: Persistent pain and swelling of right foot TECHNIQUE: AP and lateral views COMPARISON: None FINDINGS: There is prominent soft tissue swelling of the ankle and right foot, particularly prominent dorsal soft tissue swelling noted. Diffuse osteopenia. Mild plantar calcaneal enthesopathy. Mild osteoarthritis at first tarsophalangeal joint. No fracture, dislocation, periosteal reaction or bone destruction is detected. IMPRESSION: Prominent soft tissue swelling of the ankle and foot Osteopenia Mild plantar calcaneal enthesopathy Mild osteoarthritis at first metatarsophalangeal joint. Reviewed, dictated and finalized at location B.
== END ==
PROVIDERS: PCP Family Medicine Adolescent Medicine; Visit Provider Family Medicine Adolescent Medicine
DX: M85.871 Other specified disorders of bone density and structure, right ankle and foot (principal); M77.31 Calcaneal spur, right foot; M19.071 Primary osteoarthritis, right ankle and foot
CPT/HCPCS: 73620

== ENCOUNTER 2023-04-02 16:38 | Inpatient (IN) | payer MEDICARE, SELFPAY ==
[2023-04-02] VITALS (11 sets, daily range): BP systolic 137–159; BP diastolic 58–82; PULSE 69–94; RESP 17–20; TEMP 36.7–36.9; O2SAT 91–97
--- NOTE | ~2023-04-02 | NM_ITS ---
EXAMINATION: NM nolberto stress w perfusion DATE: 04/07/2023 12:37 INDICATION: Chest pain. TECHNIQUE: Rest images were obtained following intravenous administration of 10.0 mCi Tc99m tetrofosm in (Myoview). The patient was infused intravenously with Lexiscan (regadenoson). Then, 32.7 mCi Tc99m tetrofosmin (Myoview) was administered intravenously, and stress images were obtained. Data was mira nstructed into short axis and horizontal and vertical long axis SPECT images. Gated SPECT images were also obtained. COMPARISON: CT abdomen 08/16/2018 FINDINGS: There is no definite reversible or fixed perfusion abnormality to suggest ischemia or infar ction. There is no segmental wall motion abnormality. Left ventricular ejection fraction measures > 70%. IMPRESSION: 1. No definite ischemia or infarct. 2. Normal left ventricular ejection fraction measuring >70%. Reviewed, dictated and finalized at location A. ER SULFATE
--- NOTE | ~2023-04-02 | CT_ITS ---
EXAMINATION: CT diagnostic chest w con DATE: 04/13/2023 13:27 INDICATION: Leukocytosis TECHNIQUE: Transaxial computed tomographic images of the chest were obtained after the administration of 75 cc of Omnipaque 350 intravenous contrast. The dose-length product (DLP) was 930.48 mGy-cm. Ite rative reconstruction was used. COMPARISON: None FINDINGS: There is mild atelectasis of the lung bases. There are patchy airspace opacities throughout the lungs. No pleural effusion or pneumothorax. No pathologically enlarged thoracic lymph nodes are identified. The heart size is normal. Calcified coronary artery atherosclerosis is noted. There is mo derate thoracic spondylosis. IMPRESSION: 1. Minimal patchy airspace opacities of the lungs, likely pneumonia. Reviewed, dictated and finalized at location B. TAL PRINTER
--- NOTE | ~2023-04-02 | XR_ITS ---
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 RESULT: Lines, tubes, and devices: External blood sugar monitor. Lungs and pleura: Senescent changes. Diffuse reticular and streaky bilateral mid and lower lung opac ities. Cardiomediastinal silhouette: Stable. Other: No acute osseous or upper abdominal finding. IMPRESSION: Mild interstitial edema. Streaky bilateral lower lung atelectasis and scar. Reviewed, dictated and finalized at location K. ERCIAL TRUCK DRIVER
--- NOTE | ~2023-04-02 | CT_ITS ---
EXAMINATION: CT abdomen pelvis wo con DATE: 04/12/2023 17:16 INDICATION: Epigastric abdominal pain. TECHNIQUE: Computed tomography (CT) of the abdomen and pelvis was performed without intravenous contr ast. Automated exposure control and iterative reconstruction technique were employed. The dose-length product was 1222.04 mGy-cm. COMPARISON: CT abdomen/ FINDINGS: The visualized portions of the lung bases demonstrate mild atelectasis. No pleural effusion . Cardiomegaly is noted. There are coronary artery calcifications. No pericardial effusion. Calcified mediastinal lymph nodes are consistent with old granulomatous disease. Calcifications in the liver a re consistent with old granulomatous disease. There are changes of cholecystectomy. The spleen, pancr eas, and adrenal glands are normal. There is a 13 mm cyst in right kidney. There is a 13.3 cm cystic mass with septations in left kidney. There is no urolithiasis. There is calcified atherosclerosis of the aorta and many of the other arteries. There are no dilated loops of bowel. The appendix is not vi sualized. There are no pathologically enlarged lymph nodes. There is no free intraperitoneal fluid. T here is severe thoracic spondylosis and mild lumbar spondylosis. IMPRESSION: 1. 13.3 cm cystic mass with septations in left kidney, increased from 9.1 cm on 08/16/18, probably wanda ign. Abdomen CT or MRI without and with contrast is recommended. Reviewed, dictated and finalized at location E. Y LEVEL TRUCK DRIVER IMPRESSION: 1. 13.3 cm cystic mass with septations in left kidney, increased from 9.1 cm on 08/16/18, probably benign. Abdomen CT or MRI without and with contrast is recom mended.
--- NOTE | ~2023-04-02 | XR_ITS ---
Portable chest x-ray Comparison: 04/20/2023 Clinical History: Psychosis Findings: There is mild haziness at the left lung base. Right lung clear. Cardiomediastinal silhoue tte is stable. Bones and soft tissues are unremarkable. Impression: Hazy left basilar airspace disease. Correlate for atelectasis versus pneumonia. Reviewed, dictated and finalized at [facility]. ACT CENTER ASSOCIATE Impression: Hazy left basilar airspace disease. Correlate for atelectasis versus pneumonia.
--- NOTE | ~2023-04-02 | US_ITS ---
EXAMINATION: US venous doppler [facility] DATE: 04/02/2023 18:17 INDICATION: pain/swelling lower extremities . TECHNIQUE: Grayscale images without and with compression and Doppler images of the bilateral lower ex tremity veins were obtained. COMPARISON: None FINDINGS: The right common femoral vein, profunda (deep) femoral vein, femoral vein, popliteal vein, peroneal v ein, posterior tibial veins, gastrocnemius vein, and greater saphenous vein are patent. The left common femoral vein, profunda (deep) femoral vein, femoral vein, popliteal vein, peroneal v ein, posterior tibial veins, gastrocnemius vein, and greater saphenous vein are patent. IMPRESSION: Patent bilateral lower extremity veins. No evidence of deep venous thrombosis. Reviewed, dictated and finalized at location K. CTURAL DRAFTSMAN
--- NOTE | ~2023-04-02 | CT_ITS ---
EXAMINATION: CT brain wo con DATE: 04/18/2023 16:01 CONTROLLER OPERATIONS AND HR MANAGER INDICATION: New expressive aphasia TECHNIQUE: Computed tomographic angiography (CTA) of the head was performed without and with 100 mL O mnipaque-350 intravenous contrast. The dose-length product was 605.33 mGy-cm. Volume-rendered and max imum intensity projection 3D reconstructions of the intracranial arteries were created by the technecho iyer on a separate workstation. Automated exposure control and iterative reconstruction technique we re employed. COMPARISON: CT dated 07/01/2022. FINDINGS: Generalized atrophy. There are scattered moderate periventricular and subcortical white mat ter changes, most likely related to small vessel ischemic disease (microangiopathy). No acute intracr anial hemorrhage, infarction, mass or mass effect. No ventriculomegaly or midline shift. There is mil d mucosal thickening left maxillary sinus. Mastoids are pneumatized. No depressed skull fractures. IMPRESSION: 1. No acute intracranial abnormality. 2: Chronic age-related findings Reviewed, dictated and finalized at location A. ROLLER OPERATIONS AND HR MANAGER
--- NOTE | ~2023-04-02 | XR_ITS ---
EXAMINATION: XR chest 1V portable DATE: 04/27/2023 09:35 INDICATION: Fever. Pneumonia. TECHNIQUE: frontal view of the chest was obtained. COMPARISON: Chest radiograph dated 05/04/[address] dated 04/13/2023 FINDINGS: Persistent linear opacities in the bilateral lower lung zones corresponding to bands of discoid atele ctasis/scarring on prior CT. No other airspace opacities, pulmonary edema, pleural effusion or pneumo thorax. Heart size is normal. Tortuous and atherosclerotic thoracic aorta. IMPRESSION: 1. Linear opacities in bilateral lower lung zones and favor atelectasis/scarring over pneumonia. Reviewed, dictated and finalized at location A. OR ASSISTANT IMPRESSION: 1. Linear opacities in bilateral lower lung zones and favor atelectasis/scarrin g over pneumonia.
--- NOTE | ~2023-04-02 | MR_ITS ---
EXAMINATION: MR brain/brain stem wo con DATE: 04/20/2023 08:13 INDICATION: Change in mental status. TECHNIQUE: Magnetic resonance imaging (MRI) of the brain and brainstem was performed without intraven ous contrast. COMPARISON: Brain MRI 07/04/2022, head CT 04/18/2023 FINDINGS: There is an old infarct in left cerebellum. There are scattered areas of nonspecific increa sed T2-weighted signal intensity in the cerebral white matter. There is no intracranial hemorrhage, a cute infarction, or abnormal intracranial mass lesion. The ventricles are normal in size. The paranas al sinuses are clear. There are likely changes of ocular lens replacement surgeries. The mastoid air cells are normal. IMPRESSION: 1. 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 2. Moderate nonspecific cerebral white matter disease, which likely represents chronic small vessel i schemic disease, stable from 07/04/2022. Reviewed, dictated and finalized at location E. ER TRIMMER IMPRESSION: 1. 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 2. Moderate nonspecific cerebral white matter disease, which likely represents chronic small vessel ischemic disease, stable from 07/04/2022.
--- NOTE | ~2023-04-02 | XR_ITS ---
XR chest 1V portable 04/20/2023 15:43 Indication: Pneumonia Procedure: AP portable chest Comparison: 04/02/2023 Findings: Borderline heart size. Bilateral interstitial infiltrates in both lungs. No significant eff usion. No pneumothorax. Impression: 1: Mild bilateral interstitial infiltrates which may represent mild edema or atypical pneumonia. Reviewed, dictated and finalized at location B. TING ESTIMATOR Impression: 1: Mild bilateral interstitial infiltrates which may represent mild edema or at ypical pneumonia.
--- NOTE | ~2023-04-02 | CT_ITS ---
EXAMINATION: CT brain wo con DATE: 04/23/2023 10:59 INDICATION: Headache. TECHNIQUE: Computed tomography (CT) of the head was performed without intravenous contrast. The mA wa s adjusted according to patient size. Iterative reconstruction technique was employed. The dose-lengt h product was 605.33 mGy-cm. COMPARISON: Head CT 04/18/2023 FINDINGS: There is an old infarct in left cerebellum. There are scattered areas of low attenuation in the cerebral white matter. There is no intracranial hemorrhage, acute infarction, or abnormal intrac ranial mass lesion. The ventricles are normal in size. There are likely changes of ocular lens replac ement surgeries. There is mucosal thickening in the paranasal sinuses. The mastoid air cells are norm al. IMPRESSION: 1. 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 2. Stable moderate nonspecific cerebral white matter disease, which likely represents chronic small v essel ischemic disease. Reviewed, dictated and finalized at location A. N FURNISHINGS INSTALLER IMPRESSION: 1. 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 2. Stable moderate nonspecific cerebral white matter disease, which likely repr esents chronic small vessel ischemic disease.
--- NOTE | ~2023-04-02 | CT_ITS ---
EXAMINATION: CT abdomen wo/w con INDICATION: Kidney mass TECHNIQUE: Computed tomographic images of the abdomen were obtained prior to then following the admin istration of 100 cc of Omnipaque 350 intravenous contrast. The dose-length product (DLP) was 1598.85 mGy-cm. Automated exposure control and iterative reconstruction technique were employed. COMPARISON: 04/12/2023, 08/16/2018 FINDINGS: Changes of cholecystectomy are noted. Punctate calcifications of the otherwise normal appea ring liver likely reflect healed granulomatous disease. The spleen, pancreas, and adrenal glands are normal. There is a 1.4 cm cyst of the right kidney. There is a 13.3 x 6.2 cm cystic lesion of the lef t kidney with multiple thin internal septations. No abnormally thickened septations are identified. T he lesion demonstrates interval enlargement since the 2019 comparison but no suspicious change. There are no pathologically enlarged abdominal lymph nodes. No free intraperitoneal gas or evidence of bow el obstruction. IMPRESSION: 1. Interval enlargement of a now 13.3 cm cystic mass of the left kidney with thin internal septations , likely benign. Reviewed, dictated and finalized at location B. M PRESS TENDER IMPRESSION: 1. Interval enlargement of a now 13.3 cm cystic mass of the left kidney with th in internal septations, likely benign.
--- NOTE | 2023-04-02 17:03 | ECG_ITS ---
Measurements Intervals [place] Rate: 69 P: 28 MA: 146 QRS: -2 QRSD: 82 T: 47 QT: 382 QTc: 411 Interpretive Statements SINUS RHYTHM POSSIBLE ANTERIOR MYOCARDIAL INFARCTION , AGE INDETERMINATE Electronically Signed On 04-03-2023 10:25:51 PROCESS PLANNER by Heber Freeman M.D.
[2023-04-02 17:15] LABS: Basophils Percent Auto 0.6 % (0.2-1.2); Eosinophils Absolute Auto 0.1 K/mm3 (0-0.3); Eosinophils Percent Auto 1.3 % (0-4.4); Hematocrit 32.4 % (37.0-47.0); Immature Granulocyte Absolute 0.08 K/mm3 (0.00-0.031); Immature Granulocyte Percent A 1.1 % (0-0.5); Lymphocytes Absolute Auto 1.08 K/mm3 (0.9-3.2); Lymphocytes Percent Auto 15.2 % (18.3-44.2); Mean Corpuscular HGB Conc 30.9 g/dl (32-36); Mean Corpuscular Hemoglobin 31.2 pg (26-34); Mean Corpuscular Volume 100.9 fl (80-100); Mean Platelet Volume 9.8 fl (7.4-10.4); Monocytes Absolute Auto 0.5 K/mm3 (0.1-0.6); Monocytes Percent Auto 7.2 % (2.6-8.5); Neutrophils Absolute Auto 5.3 K/mm3 (1.3-6.7); Neutrophils Percent Auto 74.6 % (45.5-73.1); Platelet Count Result 172 k/mm3 (150-375); Red Blood Count 3.21 M/mm3 (4.2-5.4); Red Cell Distribution Width 15.1 % (11.5-14.5); White Blood Count 7.1 K/mm3 (4.5-10.0)
--- NOTE | 2023-04-02 17:21 | ED.SOB ---
HPI - SOB/Dyspnea General Chief Complaint: Shortness of Breath/Dyspnea <Caterina Erwin PA-C - Last Filed: 04/02/23 21:46> Stated Complaint: SOB, swelling/pain all over <Caterina Erwin PA-C - Last Filed: 04/02/23 21:46> Time Seen by Provider: 04/02/23 16:39 <SURINDER Junior Last Filed: 04/02/23 21:46> Source: patient, family and old records reviewed <SURINDER Junior Last Filed: 04/02/23 21:46> Mode of arrival: EMS <SURINDER Junior Last Filed: 04/02/23 21:46> Limitations: no limitations <SURINDER Junior Last Filed: 04/02/23 21:46> History of Present Illness HPI Narrative: Patient is an 82-year-old female, with past medical history of gout, CHF, COPD, hypertension, DM, who presents to the ED via EMS with report of SOB, BLE swelling. Patient reports having this worsening swelling in her lower extremities over the last several days. She denies known previous history of congestive heart failure but I do see this on her PMH records. She is currently on Metolazone. Had previously been on Lasix. Son reports to their knowledge PCP has been trialing prednisone for several months for arthritis thinking this was causing the swelling. Patient reports she has not been able to take her diuretic over the last couple of days because she is unable to ambulate or get up to be able to use the restroom. She complains of pain with ambulation, pain throughout her lower extremities. She also reports increased SOB, recent cough, intermittent chest pain with coughing. Denies fevers. Son at bedside reports patient has had issues with fluctuating weight, pain, difficulty ambulating since June. They have been going back and forth with her primary care doctor. He reports he has had a increasingly difficult time taking care a patient at home, assisting her transfers/toileting/ADLs. <SURINDER Junior Last Filed: 04/02/23 21:46> Related Data Home Medications: Home Medications Medication Instructions Recorded Confirmed cyanocobalamin (vitamin B-12) 3,000 mcg PO BID 12/31/22 1,000 mcg tablet (Vitamin B-12) <Caterina Erwin PA-C - Last Filed: 04/02/23 21:46> Allergies/Adverse Reactions: Allergies Allergy/AdvReac Type Severity Reaction Status Date / Time Penicillins Allergy Severe HIVES Verified 02/21/23 10:19 propoxyphene Allergy Severe GI UPSET Verified 02/21/23 10:19 hydrocodone AdvReac Severe SEVERE GI Verified 02/21/23 10:19 UPSET, N/V nitrofurantoin AdvReac Severe Swelling Verified 02/21/23 10:19 acetaminophen AdvReac Unknown Unknown Verified 02/21/23 10:19 [From Darvocet-N] adhesive tape AdvReac Unknown Unknown Verified 02/21/23 10:19 amlodipine AdvReac Unknown Unknown Verified 02/21/23 10:19 glimepiride AdvReac Unknown Unknown Verified 02/21/23 10:19 ibuprofen AdvReac Unknown Unknown Verified 02/21/23 10:19 metformin AdvReac Unknown Unknown Verified 02/21/23 10:19 omeprazole [From Prilosec] AdvReac Unknown Unknown Verified 02/21/23 10:19 pioglitazone AdvReac Unknown Unknown Verified 02/21/23 10:19 simvastatin [From Zocor] AdvReac Unknown Unknown Verified 02/21/23 10:19 <Caterina Erwin PA-C - Last Filed: 04/02/23 21:46> Review of Systems Review of Systems: CONSTITUTIONAL: Denies fever, chills, or sweats. CARDIOVASCULAR: See HPI. RESPIRATORY: See HPI. GASTROINTESTINAL: Denies abdominal pain, nausea, vomiting, or diarrhea. GENITOURINARY: Denies dysuria or hematuria. SKIN: Denies rash or itching. MUSCULOSKELETAL: See HPI. NEUROLOGIC: Denies headache, numbness, or weakness. <SURINDER Junior Last Filed: 04/02/23 21:46> All systems reviewed & are unremarkable except as noted in HPI and below <SURINDER Junior Last Filed: 12/09/23 21:46> PMFSH Past Medical History Medical History: Medical History (Reviewed 04/02/23 @ 17:29 by VON Junior-
[2023-04-02 17:28] LABS: INR 1.2; Prothrombin Time 15.5 Seconds (11.1-14.7)
[2023-04-02 17:29] LABS: Partial Thromboplastin Time 39.8 SECONDS (22.3-36.8)
[2023-04-02 17:31] LABS: Alanine Aminotransferase 32 U/L (6-35); Albumin Level 3.1 g/dL (3.5-5.1); Alkaline Phosphatase 85 U/L (38-126); Anion Gap 4 mmol/L (8-16); Aspartate Amino Transferase 25 U/L (14-36); Bilirubin,Total 0.7 mg/dL (0.2-1.3); Blood Urea Nitrogen 31 mg/dL (7-17); Calcium 8.2 mg/dL (8.4-10.2); Carbon Dioxide 33 mmol/L (22-30); Chloride 106 mmol/L (98-107); Estimated CRCL calculation 50 ml/min; Estimated Glomerular Filt Rate > 60; Glucose 163 mg/dL (65-110); Magnesium 1.8 mg/dL (1.6-2.3); Potassium 3.8 mmol/L (3.4-5.0); Sodium 143 mmol/L (137-145)
[2023-04-02 17:42] LABS: NT Pro B Type Natriuretic Pept 1500 pg/mL (19.9-100); Troponin I 0.013 ng/mL (0.000-0.034)
[2023-04-02 18:09] LABS: Influenza A QL RT-PCR Negative (Negative); Influenza B QL RT-PCR Negative (Negative); RSV RNA, RT-PCR Negative (Negative); SARS-CoV-2 RNA PCR Negative (Negative)
[2023-04-02] MEDS: FUROSEMIDE INJ 40 MG/4 ML VIAL IV PUSH (18:25)
--- NOTE | 2023-04-02 19:24 | PC.NURSE ---
THis RN assumed care of patient. This RN took patient report from IMAN Rajput.
--- NOTE | 2023-04-02 19:50 | PC.NURSE ---
Upon shift change, pt was found in saturated linen/ gown/ and underwear. This RN explained the use of the call light to patient. Pt verbalized that she was unsure when she had to go to the bathroom. Pt verbalized that she normally uses a walker to ambulate at home to go whenever, but this shot is making it come without me knowing . This RN placed a purewick catheter on pt due to pt stating I cannot tell when I have to go to the bathroom, that nurse gave me a shot and I cannot hod it .
--- NOTE | 2023-04-02 20:01 | PM.IMHP ---
H&P: HPI History of Present Illness Date/Time: 04/02/23 20:01 Chief Complaint: leg swelling Narrative: Ten 82-year-old female with past medical history significant for chronic systolic heart failure, type diabetes mellitus, gout, hypertension. Patient was brought to the emergency room due to worsening bilateral lower extremity swelling, shortness of breath chest congestion cough, difficulty walking. Patient denies any fevers, rigors, chills, nausea, vomiting, abdominal pain preliminary workup was significant for an elevated brain natriuretic peptide patient was rule out for COVID-19 influenza type A influenza type B and RSV a bilateral lower extremity venous Doppler was negative and a chest x-ray was reported as: EXAMINATION:? XR chest 2V Exam Date/Time:? 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 Comparison:? 07/05/2022. RESULT: Lines, tubes, and devices:? External blood sugar monitor. Lungs and pleura:? Senescent changes. Diffuse reticular and streaky bilateral mid and lower lung opacities. Cardiomediastinal silhouette:? Stable. Other:? No acute osseous or upper abdominal finding. ? IMPRESSION: Mild interstitial edema. Streaky bilateral lower lung atelectasis and scar. EXAMINATION: US venous doppler LE DATE: 04/02/2023 18:17 INDICATION: pain/swelling lower extremities . TECHNIQUE: Grayscale images without and with compression and Doppler images of the bilateral lower extremity veins were obtained. COMPARISON: None FINDINGS: The right common femoral vein, profunda (deep) femoral vein, femoral vein, popliteal vein, peroneal vein, posterior tibial veins, gastrocnemius vein, and greater saphenous vein are patent. The left common femoral vein, profunda (deep)? femoral vein, femoral vein, popliteal vein, peroneal vein, posterior tibial veins, gastrocnemius vein, and greater saphenous vein are patent. IMPRESSION: Patent bilateral lower extremity veins. No evidence of deep venous thrombosis. Review of Systems Review of Systems: leg and foot swelling Constitutional: Constitutional: Denies chills and Denies fever(s) Eyes: Eyes: Denies change in vision ENT: Denies dysphagia and Denies odynophagia Cardiovascular: Cardiovascular: Denies chest pain, Reports pedal edema, Reports leg edema, Denies radiating jaw, neck or arm pain and Denies palpitations Respiratory: Respiratory: Reports chest congestion, Reports cough and Denies excessive phlegm production Gastrointestinal: Gastrointestinal: Denies abdominal pain, Denies dyspepsia, Denies heartburn, Denies diarrhea, Denies nausea and Denies vomiting Genitourinary: Genitourinary: Denies dysuria Musculoskeletal: Musculoskeletal: Denies arthralgias Integumentary/Breasts: Skin/Breast: Denies rash Neurologic: Denies focal weakness and Denies Sensory deficit (Neuro) Psychiatric: Psychiatric: Reports no additional psychiatric complaints and Reports as per HPI Endocrine: Endocrine: Denies cold intolerance, Denies fatigue, Denies flushing, Denies heat intolerance, Denies polyphagia, Denies polydipsia and Denies palpitations Hematologic/Lymphatic: Hematologic/Lymphatic: Reports no additional hematologic/lymphatic complaints and Reports as per HPI Allergic/Immunologic: Allergic/Immunologic: Reports no additional allergic/immunologic complaints and Reports as per HPI PMFSH Past Medical History Medical History Acquired hypertriglyceridemia Age related osteoporosis Aortic atherosclerosis Exudative age-related macular degeneration, left eye, with inactive choroidal neovascularization Gastroesophageal reflux disease Gout Hepatic steatosis Hypertension 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
[2023-04-02 20:02] LABS: Glucose Point of Care 148 mg/dl (65-105)
--- NOTE | 2023-04-02 20:06 | ECG_ITS ---
Measurements Intervals [place] Rate: 74 P: 29 ID: [id number] QRS: -5 QRSD: 82 T: 56 QT: 367 QTc: 408 Interpretive Statements SINUS RHYTHM LOW QRS VOLTAGE IN PRECORDIAL LEADS POSSIBLE ANTERIOR MYOCARDIAL INFARCTION , AGE INDETERMINATE Electronically Signed On 04-03-2023 10:27:43 SHOT DROPPER by Heber Freeman M.D.
[2023-04-02 20:36] LABS: Troponin I 0.014 ng/mL (0.000-0.034)
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
--- NOTE | 2023-04-02 23:10 | ADMGEN ---
This patient, Constanza Ventura, was admitted to Medical Room 346-01. Patient/family oriented to hospital policies and general routines including ID bracelet, bed and alarms, visiting hours, pain management, procedures, bathroom and other care routines, personal items, smoking policy, room service/diet, and visiting hours. Information on how to activate the Rapid Response Team has been discussed. Patient/Family are encouraged to report perceived risks to care and to ask questions if they do not understand what they are told or what they should do.
[2023-04-02 23:20] LABS: Glucose Point of Care 132 mg/dl (65-105)
[2023-04-02 23:40] LABS: Appearance Urine Clear (Clear); Bilirubin Urine Negative (Negative); Blood Urine Negative (Negative); Color Urine Yellow (Yellow); Glucose Urine UA Negative (Negative); Ketones Urine Negative (Negative); Leukocyte Esterase Ur Negative LEU/UL (Negative); Nitrate Urine Negative (Negative); Protein Urine Negative (Negative); Specific Grav Ur 1.007 (1.001-1.035); Urobilinogen Urine 0.2 mg/dL (<2.0)
[2023-04-02 23:48] LABS: Add Urine Microscopic? NO
[2023-04-02 23:57] LABS: Troponin I 0.015 ng/mL (0.000-0.034)
[2023-04-03] VITALS (13 sets, daily range): BP systolic 109–191; BP diastolic 47–86; PULSE 74–120; RESP 18–20; TEMP 36.8–37.7; O2SAT 94–96
[2023-04-03] MEDS: FUROSEMIDE INJ 40 MG/4 ML VIAL IV PUSH ×2 (05:36→17:29)
[2023-04-03] MEDS: ACETAMINOPHEN 500 MG TABLET 1000 MG PO ×3 (07:58→20:56)
[2023-04-03] MEDS: METOPROLOL TARTRATE 50 MG TAB 100 MG PO ×2 (07:58→20:55)
[2023-04-03] MEDS: CYANOCOBALAMIN 1,000 MCG TABLET 3000 MCG PO (07:59)
[2023-04-03] MEDS: PANTOPRAZOLE 40 MG TABLET PO (07:59)
[2023-04-03] MEDS: minoxidiL 2.5 MG TABLET 5 MG PO (08:00)
[2023-04-03] MEDS: DOXAZOSIN MESYLATE 4 MG TABLET PO (08:01)
[2023-04-03] MEDS: metOLazone 2.5 MG TABLET PO (08:01)
[2023-04-03 08:23] LABS: Glucose Point of Care 195 mg/dl (65-105)
[2023-04-03] MEDS: INSULIN HUMAN ISOPHAN/REGULAR 70/30 (*BKC) 100 UNITS/ML 8 UNITS SUB-Q ×3 (09:56→17:29)
[2023-04-03 12:08] LABS: Glucose Point of Care 234 mg/dl (65-105)
--- NOTE | 2023-04-03 14:08 | ECG_ITS ---
Measurements Intervals [place] Rate: 117 P: [place]: 0 QRS: -20 QRSD: 90 T: 128 QT: 302 QTc: 422 Interpretive Statements ATRIAL FIBRILLATION WITH RAPID VENTRICULAR RESPONSE LOW QRS VOLTAGE IN PRECORDIAL LEADS [QRS DEFLECTION < 1.0 mV IN CHEST LEADS] MODERATE VOLTAGE CRITERIA FOR LVH, CONSIDER NORMAL VARIANT [MEETS CRITERIA IN ONE OF: R(aVL), S(V1), R(V5), R(V5/V6)+S(V1)] CURRENT RULE OUT ANTERIOR INFARCTION ST DEVIATION AND MODERATE T-WAVE ABNORMALITY, CONSIDER LATERAL ISCHEMIA [-0.1+ mV T WAVE IN I/aVL/V5/V6] ABNORMAL ECG COMPARED TO ECG 04/02/2023 20:12:42 ATRIAL FIBRILLATION NOW PRESENT Electronically Signed On 04-04-2023 12:39:39 CYBER SYSTEMS ADMINISTRATOR by John Camara M.D.
--- NOTE | 2023-04-03 14:40 | PM.IMPN ---
Progress Note: A&P Assessment and Plan (1) Acute CHF (congestive heart failure): Qualifiers: Heart failure type: unspecified Qualified Code(s): I50.9 - Heart failure, unspecified Code(s): I50.9 - Heart failure, unspecified Status: Acute (2) Acute hypoxic respiratory failure: Code(s): J96.01 - Acute respiratory failure with hypoxia Status: Acute Plan 82F w/ PMH systolic heart failure, IDDM, HTN, gout, GERD, obesity presents with b/l LE swelling x2 days. Admitted on 04/03 for acute hypoxic respiratory failure and acute CHF # acute hypoxic respiratory failure 2/2 acutely decompensated systolic CHF - BNP on admission 1500 w/ pulmonary edema and LE swelling. LE dopplers neg for DVT. pending repeat echo - cont lasix 40mg IV BID, it has been successful thus far. cont to wean o2 as tolerated. daily weights, I/O's, fluid restriction 1800cc/day - she was taken off lasix by PCP, will have to go back on it. also counseled about fluid restrictions - further medication adjustment based on echo # new onset a fib - EKG captured this admission, new diagnosis. pt asymptomatic. start eliquis 5mg po BID, counseled on risks vs benefits - cont tele monitor. she is already on metoprolol, continue. - pending echo. check TSH # IDDM - cont home regimen insulin. accuchecks and sliding scale # HTN - controlled. cont home meds FEN: saline lock IV, cardiac diabetic diet GI prophylaxis: cont home protonix DVT prophylaxis: now on eliquis Lines: pIV Code Status: Full Code Dispo: stable More than 35 minutes spent on chart review, patient interaction and assessment and plan. Subjective Date/time seen: 04/03/23 14:40 Interval history: pt reports feeling better since arriving. less shortness of breath, much less swelling Review of Systems Review of Systems: All systems reviewed & are unremarkable except as noted in HPI and below Exam Const: General: comfortable and no acute distress Other: A&Ox3 Eyes: Pupils: Equal, round and reactive pupils present Neck: Neck: supple Resp: Effort & Inspection: normal respiratory effort Auscultation: crackles (up to mid lungs, mild) Cardio: Rate: regular rate Rhythm: regular rhythm Heart sounds: no gallops, no murmurs and no rubs GI: GI Palp: Yes Soft to palpation and No Tenderness to palpation present (GI) Extrem: General: edema (3+ edema at ankles) Objective Data Vital Signs Vital Signs: Vital Signs - 24 hr 04/02/23 16:40 04/02/23 16:46 04/02/23 16:47 Temperature 98.0 F Pulse Rate 86 94 Respiratory Rate 20 Blood Pressure 144/65 H Pulse Oximetry 92 94 Oxygen Delivery Room Air Room Air Oxygen Flow Rate 04/02/23 16:50 04/02/23 17:00 04/02/23 17:02 Temperature Pulse Rate 72 72 Respiratory Rate 17 17 Blood Pressure 137/58 L Pulse Oximetry 93 97 93 Oxygen Delivery Oxygen Flow Rate 04/02/23 17:15 04/02/23 17:30 04/02/23 22:21 Temperature Pulse Rate 69 70 Respiratory Rate 17 19 Blood Pressure Pulse Oximetry 93 92 91 Oxygen Delivery Nasal Cannula Oxygen Flow Rate 1 04/02/23 23:03 04/02/23 23:05 04/03/23 00:00 Temperature 98.5 F Pulse Rate 70 84 86 Respiratory Rate 19 20 Blood Pressure 159/82 H Pulse Oximetry 91 94 Oxygen Delivery Nasal Cannula Oxygen Flow Rate 1 04/03/23 04:00 04/03/23 06:00 04/03/23 07:33 Temperature 98.3 F Pulse Rate 96 96 Respiratory Rate 20 Blood Pressure 191/86 H 167/79 H Pulse Oximetry 94 Oxygen Delivery Oxygen Flow Rate 04/03/23 07:58 04/03/23 08:00 04/03/23 11:47 Temperature Pulse Rate 93 94 Respiratory Rate Blood Pressure Pulse Oximetry Oxygen Delivery Nasal Cannula Oxygen Flow Rate 2 04/03/23 11:40 04/03/23 14:00 Temperature 99.9 F H Pulse Rate 116 H Respiratory Rate 18 Blood Pressure 116/61 Pulse Oximetry 94 Oxygen Delivery Nasal Cannula Oxygen Flow Rate 2 Intake/Output Intake/
[2023-04-03 17:08] LABS: Glucose Point of Care 124 mg/dl (65-105)
[2023-04-03] MEDS: TOLNAFTATE 1% POWDER 45 GM BTL 1 APPLIC TOPICAL (20:57)
[2023-04-03] MEDS: APIXABAN 5 MG TABLET PO (20:57)
[2023-04-03] MEDS: lisinopriL 20 MG TABLET PO (20:57)
[2023-04-03 21:43] LABS: Glucose Point of Care 95 mg/dl (65-105)
[2023-04-04] VITALS (21 sets, daily range): BP systolic 108–151; BP diastolic 39–90; PULSE 65–140; RESP 12–18; TEMP 37.1–37.4; O2SAT 94–100
[2023-04-04] MEDS: ACETAMINOPHEN 500 MG TABLET 1000 MG PO ×3 (05:03→20:26)
[2023-04-04] MEDS: FUROSEMIDE INJ 40 MG/4 ML VIAL IV PUSH ×2 (05:03→18:09)
[2023-04-04] MEDS: METOPROLOL TARTRATE INJ 5 MG/5 ML VIAL IV PUSH ×2 (05:43→06:18)
[2023-04-04 05:50] LABS: Basophils Percent Auto 0.4 % (0.2-1.2); Eosinophils Percent Auto 0.3 % (0-4.4); Hematocrit 32.9 % (37.0-47.0); Hemoglobin 10.4 g/dL (12.0-15.0); Immature Granulocyte Absolute 0.08 K/mm3 (0.00-0.031); Immature Granulocyte Percent A 0.8 % (0-0.5); Lymphocytes Absolute Auto 0.74 K/mm3 (0.9-3.2); Lymphocytes Percent Auto 7.4 % (18.3-44.2); Mean Corpuscular HGB Conc 31.6 g/dl (32-36); Mean Corpuscular Hemoglobin 31.5 pg (26-34); Mean Corpuscular Volume 99.7 fl (80-100); Mean Platelet Volume 9.3 fl (7.4-10.4); Monocytes Percent Auto 9.7 % (2.6-8.5); Neutrophils Absolute Auto 8.2 K/mm3 (1.3-6.7); Neutrophils Percent Auto 81.4 % (45.5-73.1); Platelet Count Result 201 k/mm3 (150-375); Red Cell Distribution Width 14.8 % (11.5-14.5)
--- NOTE | 2023-04-04 06:00 | ECHO_ITS ---
Patient Info Name: Constanza Ventura Age: 82 years : 1940 Gender: Female Ht: 63 in Wt: 205 lbs BSA: 2.08 m2 HR: 73 bpm BP: 151 / 60 mmHg Heart Rhythm: Sinus Rhythm Technical Quality: Fair Exam Date: 04/04/2023 2:43 PM Exam Location: Echo Lab Patient Status: Inpatient Admit Date: 04/03/2023 Staff Ordering Physician: Caterina Erwin PA-C Attending Provider: Joseph Sood MD Referring Physician: Yaima VEGA; Exam Type: CA echo dop color flow w con Study Info Indications - acute chf Complete two-dimensional, color flow and Doppler transthoracic echocardiogram is performed with contrast to opacify the left ventricle and to improve the deliniation of the left ventricle endocardial borders. Contrast/Agitated Saline Contrast/Ag. Saline: Definity Amount: 2.00 ml Administered By: Bridgette Gloria Existing IV Access: Yes Summary 1. Left ventricular chamber dimension is normal. 2. Left ventricular systolic function is normal, estimated at 65-70%. 3. There is moderately increased left ventricular wall thickness. 4. The left ventricular diastolic function is grade I diastolic dysfunction. 5. Left atrial chamber dimension is severely enlarged. 6. Right atrial chamber dimension is moderately enlarged. 7. There is mild aortic valve calcification. 8. There is mild mitral valve regurgitation. 9. The mitral valve annulus is mildly calcified. 10. There is mild pulmonic regurgitation. 11. Dilated inferior vena cava with >50% collapse upon inspiration consistent with elevated right atrial pressure, 15 mmHg. Left Ventricle Left ventricular chamber dimension is normal. Left ventricular systolic function is normal, estimated at 65-70%. There is moderately increased left ventricular wall thickness. The left ventricular diastolic function is grade I diastolic dysfunction. Right Ventricle Right ventricular chamber dimension is normal. Right ventricular systolic function is normal. Left Atria Left atrial chamber dimension is severely enlarged. Right Atria Right atrial chamber dimension is moderately enlarged. Atrial Septum Intact interatrial septum visualized by color flow imaging. Aortic Valve The aortic valve is trileaflet. There is no aortic valve stenosis. There is trace aortic valve regurgitation. There is mild aortic valve calcification. Pulmonic Valve The pulmonic valve is normal. There is no pulmonic valve stenosis. There is mild pulmonic regurgitation. Mitral Valve There is no mitral valve stenosis. There is mild mitral valve regurgitation. The mitral valve annulus is mildly calcified. Tricuspid Valve The tricuspid valve leaflets are normal. There is no significant tricuspid valve stenosis. There is trace tricuspid valve regurgitation. Pericardium/Pleural The pericardium appears normal. There is trivial pericardial effusion. Inferior Vena Cava Dilated inferior vena cava with >50% collapse upon inspiration consistent with elevated right atrial pressure, 15 mmHg. Aorta The aortic root size at the sinus of Valsalva is normal. Left Ventricular Outflow Tract Name Value Normal LVOT 2D LVOT Diameter 1.96 cm LVOT Doppler
[2023-04-04 06:07] LABS: Anion Gap 3 mmol/L (8-16); Blood Urea Nitrogen 29 mg/dL (7-17); Calcium 8.3 mg/dL (8.4-10.2); Carbon Dioxide 37 mmol/L (22-30); Chloride 100 mmol/L (98-107); Estimated CRCL calculation 41 ml/min; Estimated Glomerular Filt Rate 53; Glucose 179 mg/dL (65-110); Potassium 3.3 mmol/L (3.4-5.0); Sodium 140 mmol/L (137-145)
--- NOTE | 2023-04-04 06:07 | ECG_ITS ---
Measurements Intervals [place] Rate: 141 P: [place]: 0 QRS: -16 QRSD: 90 T: 146 QT: 285 QTc: 437 Interpretive Statements ATRIAL FIBRILLATION WITH RAPID VENTRICULAR RESPONSE MODERATE VOLTAGE CRITERIA FOR LVH, CONSIDER NORMAL VARIANT [MEETS CRITERIA IN ONE OF: R(aVL), S(V1), R(V5), R(V5/V6)+S(V1)] POSSIBLE ANTERIOR MYOCARDIAL INFARCTION , PROBABLY OLD [30 ms Q WAVE IN V3/V4, OR R < 0.2 mV IN V4] ST DEVIATION AND MODERATE T-WAVE ABNORMALITY, CONSIDER LATERAL ISCHEMIA [-0.1+ mV T WAVE IN I/aVL/V5/V6] ABNORMAL ECG COMPARED TO ECG 04/03/2023 14:17:47 NO SIGNIFICANT CHANGES Electronically Signed On 04-04-2023 12:45:41 FOOD AND NUTRITION SERVICES ASSISTANT by John Camara M.D.
[2023-04-04] MEDS: METOPROLOL TARTRATE 50 MG TAB 100 MG PO ×2 (06:36→20:25)
--- NOTE | 2023-04-04 06:49 | PC.NURSE ---
At around 0530 today the patient converted back to Afib after being in NSR since the start of the shift. MD was notified and orders received for IV Lopressor. After administering the medication the patient did not show any signs of changes. New Access was established and repeat orders received including Stat EKG - Confirming Afib RVR. Orders to transfer for Cardiac drip and to administer oral Metoprol early received. Patients lab work came did come back critical MD made aware. Awaiting for bed location for transfer to IMU.
[2023-04-04 06:55] LABS: Troponin I 0.138 ng/mL (0.000-0.034)
--- NOTE | 2023-04-04 07:56 | PC.NURSE ---
This patient, Constanza Ventura, was transferred to [facility] on 04/04/23 at 0756. Personal belongings sent with patient. Report given to IMAN Mcfadden. Appropriate documentation sent with patient. Called and updated pt's son, Julio, on transfer.
[2023-04-04] MEDS: dilTIAZem 100 MG/100 ML 100 MG/100 ML BAG IV CONT (08:13)
[2023-04-04 08:20] LABS: Glucose Point of Care 192 mg/dl (65-105)
[2023-04-04] MEDS: PANTOPRAZOLE 40 MG TABLET PO (09:00)
[2023-04-04] MEDS: lisinopriL 20 MG TABLET PO (09:00)
[2023-04-04] MEDS: CYANOCOBALAMIN 1,000 MCG TABLET 3000 MCG PO (09:00)
[2023-04-04] MEDS: APIXABAN 5 MG TABLET PO ×2 (09:02→20:25)
[2023-04-04] MEDS: TOLNAFTATE 1% POWDER 45 GM BTL 1 APPLIC TOPICAL ×2 (09:03→21:39)
[2023-04-04] MEDS: DOXAZOSIN MESYLATE 4 MG TABLET PO (09:14)
[2023-04-04] MEDS: INSULIN HUMAN ISOPHAN/REGULAR 70/30 (*BKC) 100 UNITS/ML 8 UNITS SUB-Q ×3 (09:31→18:10)
[2023-04-04] MEDS: POTASSIUM CHLORIDE 20 MEQ ER TABLET 40 MEQ PO (12:19)
[2023-04-04] MEDS: metOLazone 2.5 MG TABLET PO (12:20)
[2023-04-04 12:24] LABS: Glucose Point of Care 164 mg/dl (65-105)
--- NOTE | 2023-04-04 12:24 | PM.IMPN ---
Progress Note: A&P Assessment and Plan (1) Acute CHF (congestive heart failure): Qualifiers: Heart failure type: unspecified Qualified Code(s): I50.9 - Heart failure, unspecified Code(s): I50.9 - Heart failure, unspecified Status: Acute (2) Generalized weakness: Code(s): R53.1 - Weakness Status: Acute (3) Difficulty in walking: Code(s): R26.2 - Difficulty in walking, not elsewhere classified Status: Acute (4) Acute hypoxic respiratory failure: Code(s): J96.01 - Acute respiratory failure with hypoxia Status: Acute Plan 82F w/ PMH systolic heart failure, IDDM, HTN, gout, GERD, obesity presents with b/l LE swelling. Admitted on 04/03 for acute hypoxic respiratory failure and acute CHF # acute hypoxic respiratory failure 2/2 acutely decompensated systolic CHF - BNP on admission 1500 w/ pulmonary edema and LE swelling. LE dopplers neg for DVT. pending repeat echo - cont lasix 40mg IV BID, some of her swelling may also be due to prolonged prednisone use, which was weaned off recently. ctm w/ fluid restriction 1800cc/day. - she may have a component of obstructive disease as she is wheezing although that could be cardiac wheeze. prior smoker and was using an inhaler at home. start nebs q4hr. - she was taken off lasix by PCP, will have to go back on it. also counseled about fluid restrictions - further medication adjustment based on echo # new onset a fib - EKG captured this admission, new diagnosis. started eliquis 5mg po BID, counseled on risks vs benefits. cont tele - PM of 04/03 patient entered RVR unable to break with IV metoprolol. diltiazem 5mg started. she is now rate controlled. cont metoprolol but dc other antihypertensive in case need to titrate beta micheal up - pending echo. TSH wnl. # IDDM - cont home regimen insulin. accuchecks and sliding scale # HTN - controlled. as above # gout - unclear if pt had flare prior to admission, was recently weaned off of prednisone. re-evaluate this issue after her superimposed generalized swelling has improved. FEN: saline lock IV, cardiac diabetic diet GI prophylaxis: cont home protonix DVT prophylaxis: now on eliquis Lines: pIV Code Status: Full Code Dispo: stable. PT/OT consulted. pt is typically avoidant of recommendations per the son, but he agrees she needs to increase strength and he doesn't't know if he can care for her time checker much longer at home. More than 35 minutes spent on chart review, patient interaction and assessment and plan. Subjective Date/time seen: 04/04/23 12:24 Interval history: lengthy discussion with Julio the son and Nurse Lesa in the room. the son has many concerns, mainly about disease course, plan, and med mgmt, all of his questions were answered to satisfaction. he lets me know the patient has had left foot swelling superimposed with weight gain and generalized swelling for many months, combined with shortness of breath. was being treated outpatient with prednisone but was recently tapered off. she could not tolerate allupurinol as well. she has prior smoking history Review of Systems Review of Systems: All systems reviewed & are unremarkable except as noted in HPI and below (subjective) Exam Const: General: comfortable and no acute distress Eyes: Pupils: Equal, round and reactive pupils present Neck: Neck: supple Resp: Effort & Inspection: normal respiratory effort Auscultation: crackles (mild up to mid lungs) Cardio: Rate: regular rate Rhythm: abnormal rhythm Heart sounds: no gallops, no murmurs and no rubs GI: GI Palp: Yes Soft to palpation and No Tenderness to palpation present (GI) Extrem: General: edema (moderate, b/l LE's) Objective Data Vital Signs Vital Signs: Vital Signs - 24 hr 04/03/23 14:00 04/03/23 17:21 04/03/23 16:00 Temperature 99.9 F H Pulse Rate 116 H 77 Respiratory Rate 18 Blood Pressure 116/61 109/47 L Pulse Oximetry 94 Oxygen Deliv
[2023-04-04 12:40] LABS: Magnesium 1.6 mg/dL (1.6-2.3)
[2023-04-04 12:57] LABS: Troponin I 0.105 ng/mL (0.000-0.034)
[2023-04-04] MEDS: IPRATROPIUM BR 0.02% INH SOLN 0.5 MG/2.5 ML VIAL INHALATION ×2 (14:28→19:28)
[2023-04-04] MEDS: LEVALBUTEROL NEB 1.25 MG/3 ML 0.63 MG INHALATION ×2 (14:29→19:28)
[2023-04-04] MEDS: PERFLUTREN LIPID MICROSPHERES 1.5 ML VIAL DILUTED TO 10 ML TOTAL VOLUME IV PUSH (15:45)
--- NOTE | 2023-04-04 16:06 | IVDEFINITY ---
Prior to administration of IV Definity the patient was educated on the risks and benefits of the imaging enhancing agent including potential adverse side effects. The patient verbalized understanding. Allergies were verified. No exclusion criteria were identified and at least one of the following inclusion criteria were met: 1) physician request, 2) patient technically difficult to image (per the [place] [employer] guidelines of two or more segments not discernable within the apical view), or 3) questionable left ventricular function. ?
[2023-04-04 17:55] LABS: Glucose Point of Care 130 mg/dl (65-105)
[2023-04-05] VITALS (29 sets, daily range): BP systolic 110–151; BP diastolic 49–91; PULSE 63–154; RESP 12–26; TEMP 36–37; O2SAT 91–100; BMI 31.0
[2023-04-05] MEDS: LEVALBUTEROL NEB 1.25 MG/3 ML 0.63 MG INHALATION (01:34)
[2023-04-05 01:35] LABS: Glucose Point of Care 152 mg/dl (65-105)
[2023-04-05] MEDS: IPRATROPIUM BR 0.02% INH SOLN 0.5 MG/2.5 ML VIAL INHALATION ×3 (01:35→20:16)
[2023-04-05 05:06] LABS: Basophils Percent Auto 0.4 % (0.2-1.2); Eosinophils Absolute Auto 0.1 K/mm3 (0-0.3); Eosinophils Percent Auto 0.5 % (0-4.4); Hematocrit 32.4 % (37.0-47.0); Hemoglobin 9.8 g/dL (12.0-15.0); Immature Granulocyte Absolute 0.09 K/mm3 (0.00-0.031); Immature Granulocyte Percent A 0.9 % (0-0.5); Lymphocytes Absolute Auto 0.79 K/mm3 (0.9-3.2); Mean Corpuscular HGB Conc 30.2 g/dl (32-36); Mean Corpuscular Hemoglobin 30.5 pg (26-34); Mean Corpuscular Volume 100.9 fl (80-100); Mean Platelet Volume 9.1 fl (7.4-10.4); Monocytes Absolute Auto 0.9 K/mm3 (0.1-0.6); Monocytes Percent Auto 9.4 % (2.6-8.5); Neutrophils Percent Auto 80.8 % (45.5-73.1); Platelet Count Result 204 k/mm3 (150-375); Red Blood Count 3.21 M/mm3 (4.2-5.4); Red Cell Distribution Width 14.7 % (11.5-14.5); White Blood Count 9.9 K/mm3 (4.5-10.0)
[2023-04-05 05:18] LABS: Alanine Aminotransferase 20 U/L (6-35); Albumin Level 3.1 g/dL (3.5-5.1); Alkaline Phosphatase 76 U/L (38-126); Aspartate Amino Transferase 22 U/L (14-36); Bilirubin,Total 1.4 mg/dL (0.2-1.3); Blood Urea Nitrogen 36 mg/dL (7-17); Calcium 8.4 mg/dL (8.4-10.2); Carbon Dioxide > 40 mmol/L (22-30); Chloride 99 mmol/L (98-107); Estimated CRCL calculation 38 ml/min; Estimated Glomerular Filt Rate 53; Glucose 165 mg/dL (65-110); Magnesium 1.9 mg/dL (1.6-2.3); Potassium 3.5 mmol/L (3.4-5.0); Sodium 142 mmol/L (137-145)
[2023-04-05] MEDS: ACETAMINOPHEN 500 MG TABLET 1000 MG PO ×3 (05:24→20:00)
[2023-04-05] MEDS: FUROSEMIDE INJ 40 MG/4 ML VIAL IV PUSH ×2 (06:26→17:01)
[2023-04-05] MEDS: METOPROLOL TARTRATE 50 MG TAB 100 MG PO (08:18)
[2023-04-05] MEDS: PANTOPRAZOLE 40 MG TABLET PO (08:21)
[2023-04-05] MEDS: CYANOCOBALAMIN 1,000 MCG TABLET 3000 MCG PO (08:21)
--- NOTE | 2023-04-05 08:25 | ECG_ITS ---
Measurements Intervals [place] Rate: 125 P: [place]: 0 QRS: -17 QRSD: 84 T: 132 QT: 288 QTc: 416 Interpretive Statements ATRIAL FIBRILLATION WITH RAPID VENTRICULAR RESPONSE MODERATE VOLTAGE CRITERIA FOR LVH, CONSIDER NORMAL VARIANT [MEETS CRITERIA IN ONE OF: R(aVL), S(V1), R(V5), R(V5/V6)+S(V1)] POSSIBLE ANTERIOR MYOCARDIAL INFARCTION [30 ms Q WAVE IN V3/V4, OR R < 0.2 mV IN V4], PROBABLY OLD MODERATE T-WAVE ABNORMALITY, CONSIDER LATERAL ISCHEMIA [-0.1+ mV T WAVE IN I/aVL/V5/V6] ABNORMAL ECG COMPARED TO ECG 04/04/2023 06:23:59 NO SIGNIFICANT CHANGES Electronically Signed On 04-05-2023 17:00:50 ENVIRONMENTAL CONSTRUCTION ENGINEER by John Camara M.D.
[2023-04-05] MEDS: APIXABAN 5 MG TABLET PO ×2 (08:38→20:01)
[2023-04-05 08:55] LABS: Glucose Point of Care 188 mg/dl (65-105)
--- NOTE | 2023-04-05 09:11 | PM.IMPN ---
Progress Note: A&P Assessment and Plan (1) Acute CHF (congestive heart failure): Qualifiers: Heart failure type: unspecified Qualified Code(s): I50.9 - Heart failure, unspecified Code(s): I50.9 - Heart failure, unspecified Status: Acute (2) Generalized weakness: Code(s): R53.1 - Weakness Status: Acute (3) Difficulty in walking: Code(s): R26.2 - Difficulty in walking, not elsewhere classified Status: Acute (4) Acute hypoxic respiratory failure: Code(s): J96.01 - Acute respiratory failure with hypoxia Status: Acute Plan 82F w/ PMH systolic heart failure, IDDM, HTN, gout, GERD, obesity presents with b/l LE swelling. Admitted on 04/03 for acute hypoxic respiratory failure and acute CHF # acute hypoxic respiratory failure 2/2 acutely decompensated systolic CHF - BNP on admission 1500 w/ pulmonary edema and LE swelling. LE dopplers neg for DVT. pending repeat echo - cont lasix 40mg IV BID, some of her swelling may also be due to prolonged prednisone use, which was weaned off recently. ctm w/ fluid restriction 1800cc/day. she refused to participate with 1500 cc fluid restriction. - she may have a component of obstructive disease as she is wheezing although that could be cardiac wheeze. prior smoker and was using an inhaler at home. start nebs q4hr on 04/05. due to paroxsymal rvr, levalbuterol nebs dc'ed. cont ipratropium - she was taken off lasix by PCP, will have to go back on it going home. also counseled about fluid restrictions - further medication adjustment based on echo. still pending - still on 2 L NC. cont to wean. cont to treat above. # new onset a fib - EKG captured this admission, new diagnosis. started eliquis 5mg po BID, counseled on risks vs benefits. cont tele - PM of 04/03 patient entered RVR unable to break with IV metoprolol. diltiazem 5mg started. she is now rate controlled. cont metoprolol but dc other antihypertensive in case need to titrate beta micheal up. AM of 04/04 diltiazem gtt weaned off - AM of 04/05 again a fib w/ RVR in 140's. resolved after her anxiety dissipated. increasing metoprolol from 100mg po bid to 150mg po bid. - pending echo. TSH wnl. # elevated troponin/chest pain - onset when she became very anxious while refusing to participate with fluid restriction. resolved after a fib w/ RVR improved. - pending repeat troponin AM of 04/05. EKG with lateral st depressions however this is during rapid a fib. repeat ekg when rate controlled. lexiscan in AM. # IDDM - cont home regimen insulin. accuchecks and sliding scale # HTN - controlled. as above # gout - unclear if pt had flare prior to admission, was recently weaned off of prednisone. re-evaluate this issue after her superimposed generalized swelling has improved. FEN: saline lock IV, cardiac diabetic diet GI prophylaxis: cont home protonix DVT prophylaxis: now on eliquis Lines: pIV Code Status: Full Code Dispo: stable. PT/OT consulted. pt is non compliant. counseled on risks of deterioration and if she is unable to comply with recommendations and she acknowledges. More than 35 minutes spent on chart review, patient interaction and assessment and plan. Subjective Date/time seen: 04/05/23 09:11 Interval history: this AM patient refusing to participate with fluid restriction. she wants large quantities of water to take her pills. she became anxious and a fib flipped into RVR at 140s. she complained of chest tightness and shortly after her a RVR resolved spontaneously and her chest pain resolved without further intervention. she denies shortness of breath otherwise. Review of Systems Review of Systems: All systems reviewed & are unremarkable except as noted in HPI and below (subjective) Exam Const: General: comfortable and no acute distress Other: obese Eyes: Pupils: Equal, round and reactive pupils present Neck: Neck: supple Resp: Effort & Inspection: normal respiratory
[2023-04-05 09:28] LABS: Troponin I 0.062 ng/mL (0.000-0.034)
[2023-04-05] MEDS: METOPROLOL TARTRATE 25 MG TABLET PO (09:41)
[2023-04-05] MEDS: INSULIN HUMAN ISOPHAN/REGULAR 70/30 (*BKC) 100 UNITS/ML 8 UNITS SUB-Q ×3 (09:44→17:01)
[2023-04-05] MEDS: TOLNAFTATE 1% POWDER 45 GM BTL 1 APPLIC TOPICAL ×2 (09:45→20:03)
[2023-04-05] MEDS: INSULIN ASPART (*BKC) 100 UNITS/ML SUB-Q (12:16)
[2023-04-05 12:20] LABS: Glucose Point of Care 280 mg/dl (65-105)
--- NOTE | 2023-04-05 13:06 | ECG_ITS ---
Measurements Intervals [place] Rate: 75 P: 19 [place]: 144 QRS: -8 QRSD: 83 T: 66 QT: 355 QTc: 398 Interpretive Statements SINUS RHYTHM MINIMAL VOLTAGE CRITERIA FOR LVH, CONSIDER NORMAL VARIANT [MEETS CRITERIA IN ONE OF: R(aVL), S(V1), R(V5), R(V5/V6)+S(V1)] POSSIBLE ANTERIOR MYOCARDIAL INFARCTION , PROBABLY OLD [30 ms Q WAVE IN V3/V4, OR R < 0.2 mV IN V4] ABNORMAL ECG COMPARED TO ECG 04/05/2023 08:45:49 SINUS RHYTHM NOW PRESENT Electronically Signed On 04-06-2023 10:30:53 AFTERNOON NANNY by John Camara M.D.
[2023-04-05 16:14] LABS: Glucose Point of Care 147 mg/dl (65-105)
[2023-04-05] MEDS: CAPSAICIN 0.025% CREAM 60 GM TUBE 1 APPLIC TOPICAL (17:01)
[2023-04-05 20:00] LABS: Glucose Point of Care 157 mg/dl (65-105)
[2023-04-05] MEDS: METOPROLOL TARTRATE 25 MG TABLET 125 MG PO (20:01)
[2023-04-05] MEDS: METOPROLOL TARTRATE INJ 5 MG/5 ML VIAL IV PUSH (21:03)
[2023-04-06] VITALS (26 sets, daily range): BP systolic 134–158; BP diastolic 50–84; PULSE 64–165; RESP 16–24; TEMP 36.1–37.1; O2SAT 95–100
[2023-04-06] MEDS: IPRATROPIUM BR 0.02% INH SOLN 0.5 MG/2.5 ML VIAL INHALATION ×4 (02:28→20:48)
[2023-04-06] MEDS: ACETAMINOPHEN 500 MG TABLET 1000 MG PO (04:57)
[2023-04-06] MEDS: FUROSEMIDE INJ 40 MG/4 ML VIAL IV PUSH ×2 (05:01→17:45)
--- NOTE | 2023-04-06 05:11 | ECG_ITS ---
Measurements Intervals [place] Rate: 122 P: [place]: 0 QRS: 77 QRSD: 84 T: -87 QT: 293 QTc: 418 Interpretive Statements ATRIAL FIBRILLATION WITH RAPID VENTRICULAR RESPONSE POSSIBLE ANTERIOR MYOCARDIAL INFARCTION [30 ms Q WAVE IN V3/V4, OR R < 0.2 mV IN V4], PROBABLY OLD MODERATE T-WAVE ABNORMALITY, CONSIDER INFERIOR ISCHEMIA [-0.1+ mV T WAVE IN II/aVF] ABNORMAL ECG COMPARED TO ECG 04/05/2023 13:15:54 ATRIAL FIBRILLATION NOW PRESENT Electronically Signed On 04-06-2023 10:40:07 MANAGER TRANSPORTATION by John Camara M.D.
[2023-04-06 05:31] LABS: Hematocrit 32.3 % (37.0-47.0); Hemoglobin 9.9 g/dL (12.0-15.0); Mean Corpuscular HGB Conc 30.7 g/dl (32-36); Mean Corpuscular Hemoglobin 30.7 pg (26-34); Mean Corpuscular Volume 100.3 fl (80-100); Mean Platelet Volume 9.6 fl (7.4-10.4); Platelet Count Result 252 k/mm3 (150-375); Red Blood Count 3.22 M/mm3 (4.2-5.4); Red Cell Distribution Width 14.6 % (11.5-14.5); White Blood Count 10.2 K/mm3 (4.5-10.0)
[2023-04-06] MEDS: dilTIAZem HCl INJ 25 MG/5 ML VIAL IV PUSH (05:33)
[2023-04-06 05:46] LABS: Anion Gap 8 mmol/L (8-16); Blood Urea Nitrogen 36 mg/dL (7-17); Calcium 8.7 mg/dL (8.4-10.2); Carbon Dioxide 39 mmol/L (22-30); Chloride 94 mmol/L (98-107); Estimated CRCL calculation 42 ml/min; Estimated Glomerular Filt Rate 60; Glucose 126 mg/dL (65-110); Magnesium 1.9 mg/dL (1.6-2.3); Sodium 141 mmol/L (137-145)
--- NOTE | 2023-04-06 06:54 | PM.EVENT ---
Event Note Event Note Event Note: I was called at about 5:20 a.m. to see this 82-year-old female patient admitted for acute on chronic CHF and hypoxic respiratory failure who submitted appropriate heart rate, duty said this has been going on for some time but monitor was showing sinus tach little of a sudden flipped over to atrial fibrillation. patient complains of toilet been, rated about 3/10 in severity, associated palpitation. pain does not radiate to just usual, left showed opacity, examination revealed an elderly patient, not in distress, has decreased breath sound bilaterally, has fast irregular heart rate. EKG showed atrial fibrillation with rapid ventricular response, normal QRS, normal QT and QTC, normal axis, with no acute ST T wave changes. Cardizem 20 mg IV push was ordered, complete blood count, basic metabolic panel, magnesium and troponin are not. left on instruction to initiate patient on Cardizem drip and start at 5 mg per hour if bolus did not control her heart rate. reviewed labs subsequently patient has mildly elevated troponin, looking back in her chart she has chronically elevated troponin and this is not higher than previous numbers. has hypokalemia of 3.0 and IV potassium chloride has been ordered. continue telemetry and close observation
[2023-04-06] MEDS: KCL 20 MEQ/SW 100 ML 100 ML 50 MEQ IVPB ×2 (07:42→10:59)
[2023-04-06 08:00] LABS: Troponin I 0.067 ng/mL (0.000-0.034)
[2023-04-06 09:01] LABS: Glucose Point of Care 163 mg/dl (65-105)
[2023-04-06] MEDS: INSULIN HUMAN ISOPHAN/REGULAR 70/30 (*BKC) 100 UNITS/ML 8 UNITS SUB-Q ×2 (09:59→17:45)
[2023-04-06] MEDS: PANTOPRAZOLE 40 MG TABLET PO (10:00)
[2023-04-06] MEDS: METOPROLOL TARTRATE 25 MG TABLET 125 MG PO ×2 (10:00→20:59)
[2023-04-06] MEDS: CYANOCOBALAMIN 1,000 MCG TABLET 3000 MCG PO (10:00)
[2023-04-06] MEDS: SPIRONOLACTONE 25 MG TABLET PO (10:01)
[2023-04-06] MEDS: TOLNAFTATE 1% POWDER 45 GM BTL 1 APPLIC TOPICAL ×2 (10:01→21:06)
[2023-04-06] MEDS: WATER FOR IRRIGATION, STERILE 1,000 ML BOTTLE 1000 ML (10:01)
[2023-04-06] MEDS: APIXABAN 5 MG TABLET PO ×2 (10:01→21:00)
[2023-04-06] MEDS: SODIUM CHLORIDE 0.9% IV 250 ML 125 ML ×2 (10:02→12:28)
--- NOTE | 2023-04-06 10:40 | PCOTNOTE ---
The patient treatment was not able to be completed. Patient has elevated HR at this time RN stated come back and try later if HR has decreased. Will plan to continue treatment per plan of care.
[2023-04-06] MEDS: METOPROLOL TARTRATE INJ 5 MG/5 ML VIAL IV PUSH (10:59)
[2023-04-06] MEDS: POTASSIUM CHLORIDE 20 MEQ ER TABLET PO (11:00)
--- NOTE | 2023-04-06 12:24 | PM.IMPN ---
Progress Note: A&P Assessment and Plan (1) Acute CHF (congestive heart failure): Qualifiers: Heart failure type: unspecified Qualified Code(s): I50.9 - Heart failure, unspecified Code(s): I50.9 - Heart failure, unspecified Status: Acute (2) Generalized weakness: Code(s): R53.1 - Weakness Status: Acute (3) Acute hypoxic respiratory failure: Code(s): J96.01 - Acute respiratory failure with hypoxia Status: Acute (4) Atrial fibrillation: Code(s): I48.91 - Unspecified atrial fibrillation Status: Acute Plan 82F w/ PMH systolic heart failure, IDDM, HTN, gout, GERD, obesity presents with b/l LE swelling. Admitted on 04/03 for acute hypoxic respiratory failure and acute CHF # acute hypoxic respiratory failure 2/2 acutely decompensated systolic CHF - BNP on admission 1500 w/ pulmonary edema and LE swelling. LE dopplers neg for DVT. echo demonstrating diastolic grade 1 dysfunction. cont lasix 40mg iv bid and consider decreasing tomorrow AM as her swelling is now greatly improved - some of her swelling may also be due to prolonged prednisone use, which was weaned off recently. ctm w/ fluid restriction 1800cc/day. she refused to participate with 1500 cc fluid restriction. - she may have a component of obstructive disease as she is wheezing although that could be cardiac wheeze. prior smoker and was using an inhaler at home. start nebs q4hr on 04/05. due to paroxsymal rvr, levalbuterol nebs dc'ed. cont ipratropium - she was taken off lasix by PCP, will have to go back on it going home. also counseled about fluid restrictions - still on 2 L NC. cont to wean. cont to treat above. # new onset a fib - EKG captured this admission, new diagnosis. started eliquis 5mg po BID, counseled on risks vs benefits. cont tele - PM of 04/03 patient entered RVR unable to break with IV metoprolol. diltiazem 5mg started. she is now rate controlled. cont metoprolol but dc other antihypertensive in case need to titrate beta micheal up. AM of 04/04 diltiazem gtt weaned off - AM of 04/05 again a fib w/ RVR in 140's. resolved after her anxiety dissipated. increasing metoprolol from 100mg po bid to 150mg po bid. - AM of 04/06 the patient flipped back into a fib w/ RVR and was effectively treated with diltiazem x1. cont same metoprolol dose and replace potassium. was only given 20meq this am so giving another 20meq via IV and 20meq KCL tab - TSH wnl. # elevated troponin/chest pain - onset when she became very anxious while refusing to participate with fluid restriction. resolved after a fib w/ RVR improved. - trend troponins. flat. initially refused lexiscan on 04/06 but after lengthy discussion with son will attempt again AM of 04/07 # IDDM - cont home regimen insulin. accuchecks and sliding scale # HTN - controlled. as above # gout - unclear if pt had flare prior to admission, was recently weaned off of prednisone. re-evaluate this issue after her superimposed generalized swelling has improved. FEN: saline lock IV, cardiac diabetic diet, NPO at midnight GI prophylaxis: cont home protonix DVT prophylaxis: now on eliquis Lines: pIV Code Status: Full Code Dispo: stable. PT/OT consulted. pt is non compliant. counseled on risks of deterioration and if she is unable to comply with recommendations and she acknowledges. More than 35 minutes spent on chart review, patient interaction and assessment and plan. Subjective Date/time seen: 04/06/23 12:24 Interval history: patient refused stress test this morning. she also entered a fib w/ RVR in 130's. received diltiazem bolus and 20meq of potassium. she has now spoken with son again and decision made to pursue stress test to evaluate chest pain and presence of coronary artery disease. educated on risks vs benefits of lexiscan Review of Systems Review of Systems: All systems reviewed & are unremarkable except as noted in HPI and below (subjective) Exam Const: Gene
--- NOTE | 2023-04-06 13:19 | PCPTNOTE ---
Attempted to see patient for PT, however per RN patient's heart rate is 130s and advised not to see patient.
[2023-04-06 14:19] LABS: Blood Urea Nitrogen 36 mg/dL (7-17); Calcium 8.7 mg/dL (8.4-10.2); Carbon Dioxide > 40 mmol/L (22-30); Chloride 94 mmol/L (98-107); Estimated CRCL calculation 38 ml/min; Estimated Glomerular Filt Rate 53; Glucose 157 mg/dL (65-110); Potassium 3.9 mmol/L (3.4-5.0); Sodium 140 mmol/L (137-145)
[2023-04-06 14:33] LABS: Troponin I 0.058 ng/mL (0.000-0.034)
[2023-04-06 16:20] LABS: Glucose Point of Care 153 mg/dl (65-105)
[2023-04-06 17:43] LABS: Glucose Point of Care 167 mg/dl (65-105)
[2023-04-06 20:54] LABS: Glucose Point of Care 181 mg/dl (65-105)
[2023-04-06] MEDS: CALCIUM CARBONATE (TUMS) 500 MG (200 MG ELEMENTAL) 400 MG PO (21:06)
[2023-04-07] VITALS (20 sets, daily range): BP systolic 154–164; BP diastolic 52–77; PULSE 63–87; RESP 16–22; TEMP 35.9–36.6; O2SAT 91–100; BMI 31.6
[2023-04-07] MEDS: IPRATROPIUM BR 0.02% INH SOLN 0.5 MG/2.5 ML VIAL INHALATION ×4 (03:02→19:57)
--- NOTE | 2023-04-07 05:00 | EST_ITS ---
Patient Info Name: Constanza Ventura Age: 82 years : 1940 Gender: Female Ht: 63 in Wt: 175 lbs BSA: 1.91 m2 HR: 72 bpm BP: 124 / 48 mmHg Heart Rhythm: Sinus Rhythm Exam Date: 04/07/2023 11:29 AM Exam Location: Echo Lab Patient Status: Inpatient Admit Date: 04/03/2023 Staff Ordering Physician: Krystle Faith MD Attending Provider: Joseph Sood MD Exercise Technologist: Annabel Talley, CT Nurse: Sophia Garcia APN Exam Type: CA stress nolberto w NM Study Info Indications R07.9 - Chest pain, unspecified A regadenoson stress test was performed. Summary 1. Please correlate with nuclear medicine images, reported separately. 2. Abnormal Lexiscan with ST segment depression consistent with myocardial ischemia. 3. Patient experienced SOB and CP with stress. 4. The supervising and interpreting physician is Dr. John Camara. Protocol: Lexiscan Stress ECG Details Stage: REST Duration (min): 0 min : 57 sec HR (bpm): 72 SBP (mmHg): 124 DBP (mmHg): 48 Stage: REST Duration (min): 12 min : 14 sec HR (bpm): 72 SBP (mmHg): 124 DBP (mmHg): 48 Stage: STAGE 1 Duration (min): 1 min : 0 sec HR (bpm): 78 SBP (mmHg): 155 DBP (mmHg): 41 Stage: RECOVERY Duration (min): 1 min : 0 sec HR (bpm): 80 SBP (mmHg): 155 DBP (mmHg): 41 Stage: RECOVERY Duration (min): 2 min : 0 sec HR (bpm): 80 SBP (mmHg): 155 DBP (mmHg): 41 Stage: RECOVERY Duration (min): 3 min : 0 sec HR (bpm): 81 SBP (mmHg): 121 DBP (mmHg): 41 Stage: RECOVERY Duration (min): 4 min : 0 sec HR (bpm): 81 SBP (mmHg): 121 DBP (mmHg): 41 Stage: RECOVERY Duration (min): 5 min : 0 sec HR (bpm): 80 SBP (mmHg): 114 DBP (mmHg): 41 Stage: RECOVERY Duration (min): 5 min : 20 sec HR (bpm): 80 SBP (mmHg): 114 DBP (mmHg): 41 Rest HR: 72 bpm Peak HR: 82 bpm Rest Sys BP: 124 mmHg Peak Sys BP: 155 mmHg Max Pred HR: 137 bpm % Max Pred HR: 60 % Target HR: 116 bpm Max RPP: 12,710 bpm*mmHg BP Response: Normal blood pressure response Termination Reason: Completed protocol Cardiac Symptoms: Chest pain, Shortness of breath Total Time: 1 min : 0 sec Rest Hernandes BP: 48 mmHg Peak Hernandes BP: 41 mmHg Total Dose: 0.4 mg Resting ECG Normal sinus rhythm. Minor resting ST/T wave changes. Stress ECG Greater than 1 mm of horizontal or downsloping ST depression - inferolateral leads. Arrhythmias Occasional PVCs. Report Signatures
[2023-04-07 05:24] LABS: Basophils Absolute Auto 0.1 K/mm3 (0.0-0.1); Basophils Percent Auto 0.4 % (0.2-1.2); Eosinophils Percent Auto 0.3 % (0-4.4); Hematocrit 32.2 % (37.0-47.0); Hemoglobin 9.9 g/dL (12.0-15.0); Immature Granulocyte Absolute 0.11 K/mm3 (0.00-0.031); Lymphocytes Absolute Auto 0.97 K/mm3 (0.9-3.2); Lymphocytes Percent Auto 8.5 % (18.3-44.2); Mean Corpuscular HGB Conc 30.7 g/dl (32-36); Mean Corpuscular Hemoglobin 30.7 pg (26-34); Mean Platelet Volume 9.7 fl (7.4-10.4); Monocytes Absolute Auto 1.2 K/mm3 (0.1-0.6); Monocytes Percent Auto 10.2 % (2.6-8.5); Neutrophils Absolute Auto 9.1 K/mm3 (1.3-6.7); Neutrophils Percent Auto 79.6 % (45.5-73.1); Platelet Count Result 310 k/mm3 (150-375); Red Blood Count 3.22 M/mm3 (4.2-5.4); Red Cell Distribution Width 14.5 % (11.5-14.5); White Blood Count 11.4 K/mm3 (4.5-10.0)
[2023-04-07 06:03] LABS: Blood Urea Nitrogen 44 mg/dL (7-17); Calcium 8.8 mg/dL (8.4-10.2); Carbon Dioxide > 40 mmol/L (22-30); Chloride 93 mmol/L (98-107); Estimated CRCL calculation 38 ml/min; Estimated Glomerular Filt Rate 53; Glucose 155 mg/dL (65-110); Magnesium 1.9 mg/dL (1.6-2.3); Potassium 3.5 mmol/L (3.4-5.0); Sodium 140 mmol/L (137-145)
[2023-04-07] MEDS: FUROSEMIDE INJ 40 MG/4 ML VIAL IV PUSH (06:13)
[2023-04-07 06:39] LABS: Procalcitonin 0.2 ng/mL
[2023-04-07 09:13] LABS: Glucose Point of Care 186 mg/dl (65-105)
[2023-04-07] MEDS: METOPROLOL TARTRATE 25 MG TABLET 125 MG PO ×2 (10:00→21:15)
[2023-04-07] MEDS: PANTOPRAZOLE 40 MG TABLET PO (10:04)
[2023-04-07] MEDS: APIXABAN 5 MG TABLET PO ×2 (10:04→21:15)
[2023-04-07] MEDS: SPIRONOLACTONE 25 MG TABLET PO (10:04)
[2023-04-07] MEDS: CYANOCOBALAMIN 1,000 MCG TABLET 3000 MCG PO (10:05)
[2023-04-07] MEDS: ACETAMINOPHEN 500 MG TABLET 1000 MG PO (10:21)
[2023-04-07] MEDS: TOLNAFTATE 1% POWDER 45 GM BTL 1 APPLIC TOPICAL ×2 (13:18→21:16)
[2023-04-07] MEDS: INSULIN HUMAN ISOPHAN/REGULAR 70/30 (*BKC) 100 UNITS/ML 8 UNITS SUB-Q ×2 (13:19→17:46)
[2023-04-07] MEDS: INSULIN ASPART (*BKC) 100 UNITS/ML SUB-Q ×3 (13:24→21:17)
[2023-04-07 13:26] LABS: Glucose Point of Care 210 mg/dl (65-105)
--- NOTE | 2023-04-07 15:09 | PM.IMPN ---
Progress Note: A&P Assessment and Plan (1) Atrial fibrillation: Code(s): I48.91 - Unspecified atrial fibrillation Status: Acute (2) Acute CHF (congestive heart failure): Qualifiers: Heart failure type: unspecified Qualified Code(s): I50.9 - Heart failure, unspecified Code(s): I50.9 - Heart failure, unspecified Status: Acute (3) Generalized weakness: Code(s): R53.1 - Weakness Status: Acute (4) Difficulty in walking: Code(s): R26.2 - Difficulty in walking, not elsewhere classified Status: Acute (5) Acute hypoxic respiratory failure: Code(s): J96.01 - Acute respiratory failure with hypoxia Status: Acute Plan 82F w/ PMH systolic heart failure, IDDM, HTN, gout, OA, GERD, obesity presents with b/l LE swelling. Admitted on 04/03 for acute hypoxic respiratory failure and acute CHF # acute hypoxic respiratory failure 2/2 acutely decompensated systolic CHF - BNP on admission 1500 w/ pulmonary edema and LE swelling. LE dopplers neg for DVT. echo demonstrating diastolic grade 1 dysfunction. - some of her swelling may also be due to prolonged prednisone use, which was weaned off just prior to admission - cont fluid restriction 1500cc/day. was taken off lasix by PCP. restarted on admission. on 04/07 lasix changed from 40mg iv bid to 40mg po qday - o2 down to 2L now. she may need this going home, probably has component of NEVILLE vs OHS vs obstructive disease (prior smoker). f/u with pulmonology w/ PFTS as outpatient - ipratropium nebs scheduled only (had tachycardia) # new onset a fib - EKG captured this admission, new diagnosis. started eliquis 5mg po BID, counseled on risks vs benefits. cont tele - home dose metoprolol increase from 100mg po bid to 150mg po bid. - TSH wnl. # elevated troponin/chest pain/SOB - patient typically becomes anxious and has SOB with chest pain and then enters a fib w/ RVR. her troponins are flat. lexiscan done on 04/07 demonstrating the following: IMPRESSION: 1. No definite ischemia or infarct. 2. Normal left ventricular ejection fraction measuring >70%. stress test portion demonstrating Summary ? 1. Please correlate with nuclear medicine images, reported separately. ? 2. Abnormal Lexiscan with ST segment depression consistent with myocardial ischemia. ? 3. Patient experienced SOB and CP with stress. ? 4. The supervising and interpreting physician is Dr. John Camara. The patient should follow up with cardiology as outpatient. The son prefers cardiology from [facility]. Pt already on metoprolol. Son wants to discuss aspirin and statin use. Ongoing OA of the b/l LEs complicates statin use and the recent initiation of eliquis and the patient's fall risk complicates aspirin use. Son also wants to review uric acid level (pending) to consider aspirin use. # IDDM - cont home regimen insulin. accuchecks and sliding scale # HTN - controlled. as above # gout vs OA - gout was diagnosed by the son. Dr. Cross tried allopurinol which the patient did not tolerate due to diarrhea, then they pt was placed on prednisone but that has been recently weaned off due to generalized swelling. Pt does not appear to have gout but reexamination of b/l feet would be appropriate when swelling is further decreased. pending uric acid level FEN: saline lock IV, cardiac diabetic diet GI prophylaxis: cont home protonix DVT prophylaxis: now on eliquis for recently dx a fib Lines: pIV Code Status: Full Code Dispo: stable. The patient is extremely non compliant. She does not even want to get up by herself. She refuses medications, tests, and therapy. The son, Julio, is her only furnace brazer and he does not know if he can care for her at this degree much longer. Last admission the pt refused SNF for rehab. Encouraged her again to to do but she so far refuses. If continues to refuse could go home tomorrow if stable. If not, she would surely benefit from rehab at SNF. 45 minute discussions hel
[2023-04-07 17:48] LABS: Glucose Point of Care 241 mg/dl (65-105)
[2023-04-07 17:48] LABS: Glucose Point of Care 272 mg/dl (65-105)
[2023-04-07 21:08] LABS: Glucose Point of Care 245 mg/dl (65-105)
[2023-04-08] VITALS (21 sets, daily range): BP systolic 115–177; BP diastolic 56–77; PULSE 60–85; RESP 16–24; TEMP 36.4–38.2; O2SAT 93–99
[2023-04-08] MEDS: IPRATROPIUM BR 0.02% INH SOLN 0.5 MG/2.5 ML VIAL INHALATION ×3 (02:00→13:00)
[2023-04-08 04:49] LABS: Glucose Point of Care 201 mg/dl (65-105)
[2023-04-08 05:28] LABS: Basophils Absolute Auto 0.1 K/mm3 (0.0-0.1); Basophils Percent Auto 0.5 % (0.2-1.2); Eosinophils Absolute Auto 0.1 K/mm3 (0-0.3); Eosinophils Percent Auto 0.5 % (0-4.4); Hematocrit 33.7 % (37.0-47.0); Hemoglobin 10.5 g/dL (12.0-15.0); Immature Granulocyte Absolute 0.16 K/mm3 (0.00-0.031); Immature Granulocyte Percent A 1.3 % (0-0.5); Lymphocytes Absolute Auto 0.81 K/mm3 (0.9-3.2); Lymphocytes Percent Auto 6.7 % (18.3-44.2); Mean Corpuscular HGB Conc 31.2 g/dl (32-36); Mean Corpuscular Hemoglobin 30.5 pg (26-34); Mean Platelet Volume 9.4 fl (7.4-10.4); Monocytes Percent Auto 8.3 % (2.6-8.5); Neutrophils Percent Auto 82.7 % (45.5-73.1); Platelet Count Result 351 k/mm3 (150-375); Red Blood Count 3.44 M/mm3 (4.2-5.4); Red Cell Distribution Width 14.4 % (11.5-14.5); White Blood Count 12.1 K/mm3 (4.5-10.0)
[2023-04-08 05:46] LABS: Blood Urea Nitrogen 46 mg/dL (7-17); Calcium 9.1 mg/dL (8.4-10.2); Carbon Dioxide > 40 mmol/L (22-30); Chloride 91 mmol/L (98-107); Estimated CRCL calculation 38 ml/min; Estimated Glomerular Filt Rate 53; Glucose 199 mg/dL (65-110); Potassium 3.3 mmol/L (3.4-5.0); Sodium 139 mmol/L (137-145); Uric Acid 12.9 mg/dL (2.5-7.5)
[2023-04-08 07:45] LABS: Glucose Point of Care 244 mg/dl (65-105)
[2023-04-08] MEDS: INSULIN ASPART (*BKC) 100 UNITS/ML SUB-Q ×3 (09:52→20:32)
[2023-04-08] MEDS: METOPROLOL TARTRATE 25 MG TABLET 125 MG PO ×2 (09:54→20:31)
[2023-04-08] MEDS: APIXABAN 5 MG TABLET PO ×2 (09:54→20:31)
[2023-04-08] MEDS: FUROSEMIDE 40 MG TABLET PO (09:54)
[2023-04-08] MEDS: CYANOCOBALAMIN 1,000 MCG TABLET 3000 MCG PO (09:54)
[2023-04-08] MEDS: PANTOPRAZOLE 40 MG TABLET PO (09:54)
[2023-04-08] MEDS: SPIRONOLACTONE 25 MG TABLET PO (09:54)
[2023-04-08] MEDS: TOLNAFTATE 1% POWDER 45 GM BTL 1 APPLIC TOPICAL ×2 (09:55→20:34)
--- NOTE | 2023-04-08 10:04 | PM.IMPN ---
Progress Note: A&P Assessment and Plan (1) Atrial fibrillation: Code(s): I48.91 - Unspecified atrial fibrillation Status: Acute (2) Acute CHF (congestive heart failure): Qualifiers: Heart failure type: unspecified Qualified Code(s): I50.9 - Heart failure, unspecified Code(s): I50.9 - Heart failure, unspecified Status: Acute (3) Generalized weakness: Code(s): R53.1 - Weakness Status: Acute (4) Difficulty in walking: Code(s): R26.2 - Difficulty in walking, not elsewhere classified Status: Acute (5) Acute hypoxic respiratory failure: Code(s): J96.01 - Acute respiratory failure with hypoxia Status: Acute Plan 82F w/ PMH systolic heart failure, IDDM, HTN, gout, OA, GERD, obesity presents with b/l LE swelling. Admitted on 04/03 for acute hypoxic respiratory failure and acute CHF # acute hypoxic respiratory failure 2/2 acutely decompensated systolic CHF - BNP on admission 1500 w/ pulmonary edema and LE swelling. LE dopplers neg for DVT. echo demonstrating diastolic grade 1 dysfunction. - some of her swelling may also be due to prolonged prednisone use, which was weaned off just prior to admission - cont fluid restriction 1500cc/day. was taken off lasix by PCP. restarted on admission. on 04/07 lasix changed from 40mg iv bid to 40mg po qday may need to resume IV diuretics - o2 down to 2L now. she may need this going home, probably has component of NEVILLE vs OHS vs obstructive disease (prior smoker). f/u with pulmonology w/ PFTS as outpatient - ipratropium nebs scheduled only (had tachycardia) # new onset a fib - EKG captured this admission, new diagnosis. started eliquis 5mg po BID, counseled on risks vs benefits. cont tele - home dose metoprolol increase from 100mg po bid to 150mg po bid. - TSH wnl. # elevated troponin/chest pain/SOB - patient typically becomes anxious and has SOB with chest pain and then enters a fib w/ RVR. her troponins are flat. lexiscan done on 04/07 demonstrating the following: IMPRESSION: 1. No definite ischemia or infarct. 2. Normal left ventricular ejection fraction measuring >70%. stress test portion demonstrating Summary ? 1. Please correlate with nuclear medicine images, reported separately. ? 2. Abnormal Lexiscan with ST segment depression consistent with myocardial ischemia. ? 3. Patient experienced SOB and CP with stress. ? 4. The supervising and interpreting physician is Dr. John Camara. The patient should follow up with cardiology as outpatient. The son prefers cardiology from [facility]. Pt already on metoprolol. Son wants to discuss aspirin and statin use. Ongoing OA of the b/l LEs complicates statin use and the recent initiation of eliquis and the patient's fall risk complicates aspirin use. Son also wants to review uric acid level WHICH is elevated at 12.9 to consider aspirin use. # IDDM - cont home regimen insulin. accuchecks and sliding scale . on 70/30 regimen at home. # HTN - controlled. as above # gout vs OA - gout was diagnosed by the son. Dr. Cross tried allopurinol which the patient did not tolerate due to diarrhea, then they pt was placed on prednisone but that has been recently weaned off due to generalized swelling. Pt does not appear to have gout but reexamination of b/l feet would be appropriate when swelling is further decreased. uric acid level elevated. Febuxostat trial may need. Need to be evaluated as an outpatient basis FEN: saline lock IV, cardiac diabetic diet GI prophylaxis: cont home protonix DVT prophylaxis: now on eliquis for recently dx a fib Lines: pIV Code Status: Full Code Dispo: stable. The patient is extremely non compliant. She does not even want to get up by herself. She refuses medications, tests, and therapy. The son, Julio, is her only leather heel breaster and he does not know if he can care for her at this degree much longer. Last admission the pt refused SNF for rehab. Encouraged her again to to do but she
[2023-04-08] MEDS: INSULIN HUMAN ISOPHAN/REGULAR 70/30 (*BKC) 100 UNITS/ML 8 UNITS SUB-Q ×3 (10:05→17:23)
[2023-04-08] MEDS: CALCIUM CARBONATE (TUMS) 500 MG (200 MG ELEMENTAL) 400 MG PO (10:11)
--- NOTE | 2023-04-08 10:14 | PC.NURSE ---
Angelina Cooney and son at bedside.
[2023-04-08] MEDS: ACETAMINOPHEN 500 MG TABLET 1000 MG PO ×2 (11:39→20:32)
[2023-04-08 12:39] LABS: Glucose Point of Care 397 mg/dl (65-105)
[2023-04-08] MEDS: POTASSIUM CHLORIDE 20 MEQ ER TABLET 40 MEQ PO (13:08)
[2023-04-08 16:52] LABS: Glucose Point of Care 159 mg/dl (65-105)
--- NOTE | 2023-04-08 19:06 | PC.NURSE ---
Report given to IMAN Fuller.
--- NOTE | 2023-04-08 19:20 | PC.NURSE ---
This patient, Constanza Ventura, was transferred to [facility] on 04/08/23 at 1920. Personal belongings sent with patient. Report given to IMAN Fuller. Appropriate documentation sent with patient. Julio, son, updated on transfer via telephone.
[2023-04-08 20:08] LABS: Glucose Point of Care 203 mg/dl (65-105)
--- NOTE | 2023-04-08 23:00 | PCRCNOTE ---
Window of time for administration has passed. See next scheduled administration.
[2023-04-09] VITALS (18 sets, daily range): BP systolic 139–178; BP diastolic 52–87; PULSE 60–74; RESP 16–20; TEMP 36.2–36.8; O2SAT 90–99
[2023-04-09] MEDS: IPRATROPIUM BR 0.02% INH SOLN 0.5 MG/2.5 ML VIAL INHALATION ×4 (01:14→21:46)
[2023-04-09] MEDS: ACETAMINOPHEN 500 MG TABLET 1000 MG PO ×3 (05:23→20:17)
[2023-04-09 07:46] LABS: Glucose Point of Care 157 mg/dl (65-105)
[2023-04-09] MEDS: INSULIN HUMAN ISOPHAN/REGULAR 70/30 (*BKC) 100 UNITS/ML 8 UNITS SUB-Q ×3 (08:49→17:00)
[2023-04-09] MEDS: APIXABAN 5 MG TABLET PO ×2 (08:52→20:16)
[2023-04-09] MEDS: CYANOCOBALAMIN 1,000 MCG TABLET 3000 MCG PO (08:52)
[2023-04-09] MEDS: SPIRONOLACTONE 25 MG TABLET PO (08:52)
[2023-04-09] MEDS: FUROSEMIDE 40 MG TABLET PO (08:52)
[2023-04-09] MEDS: PANTOPRAZOLE 40 MG TABLET PO (08:52)
[2023-04-09] MEDS: METOPROLOL TARTRATE 25 MG TABLET 125 MG PO ×2 (08:53→20:16)
[2023-04-09 09:26] LABS: Basophils Absolute Auto 0.1 K/mm3 (0.0-0.1); Basophils Percent Auto 0.4 % (0.2-1.2); Eosinophils Absolute Auto 0.1 K/mm3 (0-0.3); Eosinophils Percent Auto 0.9 % (0-4.4); Hematocrit 33.4 % (37.0-47.0); Hemoglobin 10.4 g/dL (12.0-15.0); Immature Granulocyte Absolute 0.29 K/mm3 (0.00-0.031); Immature Granulocyte Percent A 2.1 % (0-0.5); Lymphocytes Absolute Auto 1.03 K/mm3 (0.9-3.2); Lymphocytes Percent Auto 7.3 % (18.3-44.2); Mean Corpuscular HGB Conc 31.1 g/dl (32-36); Mean Corpuscular Hemoglobin 30.7 pg (26-34); Mean Corpuscular Volume 98.5 fl (80-100); Mean Platelet Volume 9.2 fl (7.4-10.4); Monocytes Absolute Auto 1.1 K/mm3 (0.1-0.6); Monocytes Percent Auto 7.5 % (2.6-8.5); Neutrophils Absolute Auto 11.5 K/mm3 (1.3-6.7); Neutrophils Percent Auto 81.8 % (45.5-73.1); Platelet Count Result 358 k/mm3 (150-375); Red Blood Count 3.39 M/mm3 (4.2-5.4); Red Cell Distribution Width 14.5 % (11.5-14.5); White Blood Count 14.1 K/mm3 (4.5-10.0)
[2023-04-09] MEDS: TOLNAFTATE 1% POWDER 45 GM BTL 1 APPLIC TOPICAL ×2 (09:30→20:17)
[2023-04-09 09:40] LABS: Alanine Aminotransferase 18 U/L (6-35); Albumin Level 2.9 g/dL (3.5-5.1); Alkaline Phosphatase 89 U/L (38-126); Aspartate Amino Transferase 26 U/L (14-36); Blood Urea Nitrogen 49 mg/dL (7-17); Calcium 9.1 mg/dL (8.4-10.2); Carbon Dioxide > 40 mmol/L (22-30); Chloride 93 mmol/L (98-107); Estimated CRCL calculation 42 ml/min; Estimated Glomerular Filt Rate 60; Glucose 212 mg/dL (65-110); Potassium 3.5 mmol/L (3.4-5.0); Sodium 138 mmol/L (137-145)
[2023-04-09 11:19] LABS: Glucose Point of Care 288 mg/dl (65-105)
[2023-04-09] MEDS: INSULIN ASPART (*BKC) 100 UNITS/ML SUB-Q (12:34)
[2023-04-09] MEDS: CALCIUM CARBONATE (TUMS) 500 MG (200 MG ELEMENTAL) 400 MG PO (13:41)
--- NOTE | 2023-04-09 14:13 | PM.IMPN ---
Progress Note: A&P Assessment and Plan (1) Atrial fibrillation: Code(s): I48.91 - Unspecified atrial fibrillation Status: Acute (2) Acute CHF (congestive heart failure): Qualifiers: Heart failure type: unspecified Qualified Code(s): I50.9 - Heart failure, unspecified Code(s): I50.9 - Heart failure, unspecified Status: Acute (3) Generalized weakness: Code(s): R53.1 - Weakness Status: Acute (4) Difficulty in walking: Code(s): R26.2 - Difficulty in walking, not elsewhere classified Status: Acute (5) Acute hypoxic respiratory failure: Code(s): J96.01 - Acute respiratory failure with hypoxia Status: Acute Plan 82F w/ PMH systolic heart failure, IDDM, HTN, gout, OA, GERD, obesity presents with b/l LE swelling. Admitted on 04/03 for acute hypoxic respiratory failure and acute CHF # acute hypoxic respiratory failure 2/2 acutely decompensated systolic CHF - BNP on admission 1500 w/ pulmonary edema and LE swelling. LE dopplers neg for DVT. echo demonstrating diastolic grade 1 dysfunction. - some of her swelling may also be due to prolonged prednisone use, which was weaned off just prior to admission - cont fluid restriction 1500cc/day. was taken off lasix by PCP. restarted on admission. on 04/07 lasix changed from 40mg iv bid to 40mg po qday may need to resume IV diuretics. Will give a dose of IV Lasix today - o2 down to 2L now. she may need this going home, probably has component of NEVILLE vs OHS vs obstructive disease (prior smoker). f/u with pulmonology w/ PFTS as outpatient - ipratropium nebs scheduled only (had tachycardia) # new onset a fib - EKG captured this admission, new diagnosis. started eliquis 5mg po BID, counseled on risks vs benefits. cont tele - home dose metoprolol increase from 100mg po bid to 150mg po bid. - TSH wnl. # elevated troponin/chest pain/SOB - patient typically becomes anxious and has SOB with chest pain and then enters a fib w/ RVR. her troponins are flat. lexiscan done on 04/07 demonstrating the following: IMPRESSION: 1. No definite ischemia or infarct. 2. Normal left ventricular ejection fraction measuring >70%. stress test portion demonstrating Summary ? 1. Please correlate with nuclear medicine images, reported separately. ? 2. Abnormal Lexiscan with ST segment depression consistent with myocardial ischemia. ? 3. Patient experienced SOB and CP with stress. ? 4. The supervising and interpreting physician is Dr. John Camara. The patient should follow up with cardiology as outpatient. The son prefers cardiology from [facility]. Pt already on metoprolol. Son wants to discuss aspirin and statin use. Ongoing OA of the b/l LEs complicates statin use and the recent initiation of eliquis and the patient's fall risk complicates aspirin use. Son also wants to review uric acid level WHICH is elevated at 12.9 to consider aspirin use. # IDDM - cont home regimen insulin. accuchecks and sliding scale . on 70/30 regimen at home. # HTN - controlled. as above # gout vs OA - gout was diagnosed by the son. Dr. Cross tried allopurinol which the patient did not tolerate due to diarrhea, then they pt was placed on prednisone but that has been recently weaned off due to generalized swelling. Pt does not appear to have gout but reexamination of b/l feet would be appropriate when swelling is further decreased. uric acid level elevated. Febuxostat trial may need. Need to be evaluated as an outpatient basis Trial of colchicine will be done today FEN: saline lock IV, cardiac diabetic diet GI prophylaxis: cont home protonix DVT prophylaxis: now on eliquis for recently dx a fib Lines: pIV Code Status: Full Code Dispo: stable. The patient is extremely non compliant. She does not even want to get up by herself. She refuses medications, tests, and therapy. The son, Julio, is her only zone supervisor firearms and he does not know if he can care for her at this degree much longer. Last
[2023-04-09] MEDS: COLCHICINE 0.6 MG TABLET PO (15:23)
[2023-04-09] MEDS: FUROSEMIDE INJ 40 MG/4 ML VIAL IV PUSH (15:23)
[2023-04-09 16:47] LABS: Glucose Point of Care 184 mg/dl (65-105)
[2023-04-09] MEDS: CAPSAICIN 0.025% CREAM 60 GM TUBE 1 APPLIC TOPICAL (17:04)
[2023-04-09 21:00] LABS: Glucose Point of Care 185 mg/dl (65-105)
[2023-04-10] VITALS (13 sets, daily range): BP systolic 137–196; BP diastolic 60–95; PULSE 59–69; RESP 18–20; TEMP 36.4–37.1; O2SAT 90–100
[2023-04-10] MEDS: IPRATROPIUM BR 0.02% INH SOLN 0.5 MG/2.5 ML VIAL INHALATION ×3 (02:40→19:29)
[2023-04-10] MEDS: ACETAMINOPHEN 500 MG TABLET 1000 MG PO ×3 (05:59→20:37)
[2023-04-10 06:39] LABS: Basophils Absolute Auto 0.1 K/mm3 (0.0-0.1); Basophils Percent Auto 0.7 % (0.2-1.2); Eosinophils Absolute Auto 0.1 K/mm3 (0-0.3); Eosinophils Percent Auto 1.1 % (0-4.4); Hematocrit 33.5 % (37.0-47.0); Hemoglobin 10.5 g/dL (12.0-15.0); Immature Granulocyte Absolute 0.35 K/mm3 (0.00-0.031); Immature Granulocyte Percent A 2.7 % (0-0.5); Lymphocytes Absolute Auto 1.19 K/mm3 (0.9-3.2); Lymphocytes Percent Auto 9.3 % (18.3-44.2); Mean Corpuscular HGB Conc 31.3 g/dl (32-36); Mean Corpuscular Hemoglobin 30.7 pg (26-34); Mean Platelet Volume 9.4 fl (7.4-10.4); Neutrophils Percent Auto 78.2 % (45.5-73.1); Platelet Count Result 416 k/mm3 (150-375); Red Blood Count 3.42 M/mm3 (4.2-5.4); Red Cell Distribution Width 14.4 % (11.5-14.5); White Blood Count 12.8 K/mm3 (4.5-10.0)
[2023-04-10 06:54] LABS: Alanine Aminotransferase 14 U/L (6-35); Albumin Level 2.9 g/dL (3.5-5.1); Alkaline Phosphatase 94 U/L (38-126); Aspartate Amino Transferase 22 U/L (14-36); Bilirubin,Total 0.8 mg/dL (0.2-1.3); Blood Urea Nitrogen 41 mg/dL (7-17); Carbon Dioxide > 40 mmol/L (22-30); Chloride 92 mmol/L (98-107); Estimated CRCL calculation 53 ml/min; Estimated Glomerular Filt Rate > 60; Glucose 197 mg/dL (65-110); Magnesium 1.9 mg/dL (1.6-2.3); Potassium 3.5 mmol/L (3.4-5.0); Sodium 138 mmol/L (137-145)
[2023-04-10 07:48] LABS: Glucose Point of Care 213 mg/dl (65-105)
[2023-04-10] MEDS: INSULIN ASPART (*BKC) 100 UNITS/ML SUB-Q ×2 (09:51→12:28)
[2023-04-10] MEDS: INSULIN HUMAN ISOPHAN/REGULAR 70/30 (*BKC) 100 UNITS/ML 8 UNITS SUB-Q ×3 (09:51→18:07)
[2023-04-10] MEDS: PANTOPRAZOLE 40 MG TABLET PO (09:53)
[2023-04-10] MEDS: CYANOCOBALAMIN 1,000 MCG TABLET 3000 MCG PO (09:53)
[2023-04-10] MEDS: FUROSEMIDE 40 MG TABLET PO (09:53)
[2023-04-10] MEDS: METOPROLOL TARTRATE 25 MG TABLET 125 MG PO ×2 (09:53→20:38)
[2023-04-10] MEDS: SPIRONOLACTONE 25 MG TABLET PO (09:54)
[2023-04-10] MEDS: COLCHICINE 0.6 MG TABLET PO (09:54)
[2023-04-10] MEDS: APIXABAN 5 MG TABLET PO ×2 (09:54→20:38)
[2023-04-10] MEDS: TOLNAFTATE 1% POWDER 45 GM BTL 1 APPLIC TOPICAL ×2 (09:54→20:39)
[2023-04-10 11:49] LABS: Glucose Point of Care 298 mg/dl (65-105)
[2023-04-10] MEDS: CALCIUM CARBONATE (TUMS) 500 MG (200 MG ELEMENTAL) 400 MG PO ×2 (12:30→20:34)
--- NOTE | 2023-04-10 14:36 | PM.IMPN ---
Progress Note: A&P Assessment and Plan (1) Atrial fibrillation: Code(s): I48.91 - Unspecified atrial fibrillation Status: Acute (2) Acute CHF (congestive heart failure): Qualifiers: Heart failure type: unspecified Qualified Code(s): I50.9 - Heart failure, unspecified Code(s): I50.9 - Heart failure, unspecified Status: Acute (3) Generalized weakness: Code(s): R53.1 - Weakness Status: Acute (4) Difficulty in walking: Code(s): R26.2 - Difficulty in walking, not elsewhere classified Status: Acute (5) Acute hypoxic respiratory failure: Code(s): J96.01 - Acute respiratory failure with hypoxia Status: Acute Plan 82F w/ PMH systolic heart failure, IDDM, HTN, gout, OA, GERD, obesity presents with b/l LE swelling. Admitted on 04/03 for acute hypoxic respiratory failure and acute CHF # acute hypoxic respiratory failure 2/2 acutely decompensated systolic CHF - BNP on admission 1500 w/ pulmonary edema and LE swelling. LE dopplers neg for DVT. echo demonstrating diastolic grade 1 dysfunction. - some of her swelling may also be due to prolonged prednisone use, which was weaned off just prior to admission - cont fluid restriction 1500cc/day. was taken off lasix by PCP. restarted on admission. on 04/07 lasix changed from 40mg iv bid to 40mg po qday may need to resume IV diuretics. Will give a dose of IV Lasix today - o2 down to 2L now. she may need this going home, probably has component of NEVILLE vs OHS vs obstructive disease (prior smoker). f/u with pulmonology w/ PFTS as outpatient - ipratropium nebs scheduled only (had tachycardia) # new onset a fib - EKG captured this admission, new diagnosis. started eliquis 5mg po BID, counseled on risks vs benefits. cont tele - home dose metoprolol increase from 100mg po bid to 150mg po bid. - TSH wnl. # elevated troponin/chest pain/SOB - patient typically becomes anxious and has SOB with chest pain and then enters a fib w/ RVR. her troponins are flat. lexiscan done on 04/07 demonstrating the following: IMPRESSION: 1. No definite ischemia or infarct. 2. Normal left ventricular ejection fraction measuring >70%. stress test portion demonstrating Summary ? 1. Please correlate with nuclear medicine images, reported separately. ? 2. Abnormal Lexiscan with ST segment depression consistent with myocardial ischemia. ? 3. Patient experienced SOB and CP with stress. ? 4. The supervising and interpreting physician is Dr. John Camara. The patient should follow up with cardiology as outpatient. The son prefers cardiology from [facility]. Pt already on metoprolol. Son wants to discuss aspirin and statin use. Ongoing OA of the b/l LEs complicates statin use and the recent initiation of eliquis and the patient's fall risk complicates aspirin use. Son also wants to review uric acid level WHICH is elevated at 12.9 to consider aspirin use. # IDDM - cont home regimen insulin. accuchecks and sliding scale . on 70/30 regimen at home. # HTN - controlled. as above # gout vs OA - gout was diagnosed by the son. Dr. Cross tried allopurinol which the patient did not tolerate due to diarrhea, then they pt was placed on prednisone but that has been recently weaned off due to generalized swelling. Pt does not appear to have gout but reexamination of b/l feet would be appropriate when swelling is further decreased. uric acid level elevated. Febuxostat trial may need. Need to be evaluated as an outpatient basis Trial of colchicine which she tolerated well. Continue colchicine 0.6 mg daily FEN: saline lock IV, cardiac diabetic diet GI prophylaxis: cont home protonix DVT prophylaxis: now on eliquis for recently dx a fib Lines: pIV Code Status: Full Code Dispo: stable. The patient is extremely non compliant. She does not even want to get up by herself. She refuses medications, tests, and therapy. The son, Julio, is her only cold working supervisor and he does not know if he can care fo
[2023-04-10] MEDS: acetaZOLAMIDE SODIUM FOR INJ 500 MG VIAL 250 MG IV PUSH (17:05)
[2023-04-10] MEDS: FUROSEMIDE INJ 40 MG/4 ML VIAL IV PUSH (17:07)
[2023-04-10 18:10] LABS: Glucose Point of Care 153 mg/dl (65-105)
[2023-04-10 21:32] LABS: Glucose Point of Care 163 mg/dl (65-105)
[2023-04-11] VITALS (14 sets, daily range): BP systolic 147–160; BP diastolic 58–70; PULSE 60–69; RESP 18–20; TEMP 35.6–36.9; O2SAT 92–100
[2023-04-11] MEDS: IPRATROPIUM BR 0.02% INH SOLN 0.5 MG/2.5 ML VIAL INHALATION ×3 (02:18→20:42)
[2023-04-11] MEDS: ACETAMINOPHEN 500 MG TABLET 1000 MG PO ×2 (05:17→21:19)
[2023-04-11 07:08] LABS: Basophils Absolute Auto 0.1 K/mm3 (0.0-0.1); Basophils Percent Auto 0.8 % (0.2-1.2); Eosinophils Absolute Auto 0.2 K/mm3 (0-0.3); Eosinophils Percent Auto 1.6 % (0-4.4); Hematocrit 33.5 % (37.0-47.0); Hemoglobin 10.5 g/dL (12.0-15.0); Immature Granulocyte Absolute 0.49 K/mm3 (0.00-0.031); Immature Granulocyte Percent A 4.2 % (0-0.5); Lymphocytes Absolute Auto 1.49 K/mm3 (0.9-3.2); Lymphocytes Percent Auto 12.6 % (18.3-44.2); Mean Corpuscular HGB Conc 31.3 g/dl (32-36); Mean Corpuscular Hemoglobin 30.7 pg (26-34); Mean Platelet Volume 9.4 fl (7.4-10.4); Monocytes Percent Auto 8.8 % (2.6-8.5); Neutrophils Absolute Auto 8.5 K/mm3 (1.3-6.7); Platelet Count Result 471 k/mm3 (150-375); Red Blood Count 3.42 M/mm3 (4.2-5.4); Red Cell Distribution Width 14.4 % (11.5-14.5); White Blood Count 11.8 K/mm3 (4.5-10.0)
[2023-04-11 07:23] LABS: Alanine Aminotransferase 14 U/L (6-35); Albumin Level 2.8 g/dL (3.5-5.1); Alkaline Phosphatase 91 U/L (38-126); Aspartate Amino Transferase 22 U/L (14-36); Bilirubin,Total 1.1 mg/dL (0.2-1.3); Blood Urea Nitrogen 38 mg/dL (7-17); Calcium 9.2 mg/dL (8.4-10.2); Carbon Dioxide > 40 mmol/L (22-30); Chloride 94 mmol/L (98-107); Estimated CRCL calculation 35 ml/min; Estimated Glomerular Filt Rate 47; Glucose 154 mg/dL (65-110); Magnesium 1.8 mg/dL (1.6-2.3); Potassium 2.9 mmol/L (3.4-5.0); Sodium 138 mmol/L (137-145)
[2023-04-11 07:55] LABS: Glucose Point of Care 159 mg/dl (65-105)
[2023-04-11] MEDS: APIXABAN 5 MG TABLET PO ×2 (08:22→21:19)
[2023-04-11] MEDS: POTASSIUM CHLORIDE 20 MEQ ER TABLET 40 MEQ PO (08:22)
[2023-04-11] MEDS: FUROSEMIDE 40 MG TABLET PO (08:22)
[2023-04-11] MEDS: METOPROLOL TARTRATE 25 MG TABLET 125 MG PO ×2 (08:23→21:16)
[2023-04-11] MEDS: INSULIN HUMAN ISOPHAN/REGULAR 70/30 (*BKC) 100 UNITS/ML 8 UNITS SUB-Q ×3 (08:23→16:45)
[2023-04-11] MEDS: CYANOCOBALAMIN 1,000 MCG TABLET 3000 MCG PO (08:23)
[2023-04-11] MEDS: acetaZOLAMIDE SODIUM FOR INJ 500 MG VIAL 250 MG IV PUSH (08:25)
[2023-04-11] MEDS: SPIRONOLACTONE 25 MG TABLET PO (08:25)
[2023-04-11] MEDS: COLCHICINE 0.6 MG TABLET PO (08:25)
[2023-04-11] MEDS: PANTOPRAZOLE 40 MG TABLET PO (08:25)
[2023-04-11] MEDS: WATER, STERILE FOR INJECTION 10 ML VIAL XX (08:26)
[2023-04-11] MEDS: TOLNAFTATE 1% POWDER 45 GM BTL 1 APPLIC TOPICAL ×2 (08:26→21:23)
--- NOTE | 2023-04-11 10:56 | PCRCNOTE ---
Window of time for administration has passed. See next scheduled administration.
[2023-04-11 11:40] LABS: Glucose Point of Care 240 mg/dl (65-105)
[2023-04-11] MEDS: INSULIN ASPART (*BKC) 100 UNITS/ML SUB-Q ×2 (11:48→21:22)
--- NOTE | 2023-04-11 13:50 | PM.IMPN ---
Progress Note: A&P Assessment and Plan (1) Atrial fibrillation: Code(s): I48.91 - Unspecified atrial fibrillation Status: Acute (2) Acute CHF (congestive heart failure): Qualifiers: Heart failure type: unspecified Qualified Code(s): I50.9 - Heart failure, unspecified Code(s): I50.9 - Heart failure, unspecified Status: Acute (3) Generalized weakness: Code(s): R53.1 - Weakness Status: Acute (4) Difficulty in walking: Code(s): R26.2 - Difficulty in walking, not elsewhere classified Status: Acute (5) Acute hypoxic respiratory failure: Code(s): J96.01 - Acute respiratory failure with hypoxia Status: Acute Plan 82F w/ PMH systolic heart failure, IDDM, HTN, gout, OA, GERD, obesity presents with b/l LE swelling. Admitted on 04/03 for acute hypoxic respiratory failure and acute CHF # acute hypoxic respiratory failure 2/2 acutely decompensated systolic CHF - BNP on admission 1500 w/ pulmonary edema and LE swelling. LE dopplers neg for DVT. echo demonstrating diastolic grade 1 dysfunction. - some of her swelling may also be due to prolonged prednisone use, which was weaned off just prior to admission - cont fluid restriction 1500cc/day. was taken off lasix by PCP. restarted on admission. on 04/07 lasix changed from 40mg iv bid to 40mg po qday may need to resume IV diuretics. Continue oral diuresis - o2 down to 2L now. she may need this going home, probably has component of NEVILLE vs OHS vs obstructive disease (prior smoker). f/u with pulmonology w/ PFTS as outpatient - ipratropium nebs scheduled only (had tachycardia) # new onset a fib - EKG captured this admission, new diagnosis. started eliquis 5mg po BID, counseled on risks vs benefits. cont tele - home dose metoprolol increase from 100mg po bid to 150mg po bid. - TSH wnl. # elevated troponin/chest pain/SOB - patient typically becomes anxious and has SOB with chest pain and then enters a fib w/ RVR. her troponins are flat. lexiscan done on 04/07 demonstrating the following: IMPRESSION: 1. No definite ischemia or infarct. 2. Normal left ventricular ejection fraction measuring >70%. stress test portion demonstrating Summary ? 1. Please correlate with nuclear medicine images, reported separately. ? 2. Abnormal Lexiscan with ST segment depression consistent with myocardial ischemia. ? 3. Patient experienced SOB and CP with stress. ? 4. The supervising and interpreting physician is Dr. John Camara. The patient should follow up with cardiology as outpatient. The son prefers cardiology from [facility]. Pt already on metoprolol. Son wants to discuss aspirin and statin use. Ongoing OA of the b/l LEs complicates statin use and the recent initiation of eliquis and the patient's fall risk complicates aspirin use. Son also wants to review uric acid level WHICH is elevated at 12.9 to consider aspirin use. # IDDM - cont home regimen insulin. accuchecks and sliding scale . on 70/30 regimen at home. # HTN - controlled. as above # gout vs OA - gout was diagnosed by the son. Dr. Cross tried allopurinol which the patient did not tolerate due to diarrhea, then they pt was placed on prednisone but that has been recently weaned off due to generalized swelling. Pt does not appear to have gout but reexamination of b/l feet would be appropriate when swelling is further decreased. uric acid level elevated. Febuxostat trial may need. Need to be evaluated as an outpatient basis Trial of colchicine which she tolerated well. Continue colchicine 0.6 mg daily FEN: saline lock IV, cardiac diabetic diet GI prophylaxis: cont home protonix DVT prophylaxis: now on eliquis for recently dx a fib Lines: pIV Code Status: Full Code Dispo: stable. The patient is extremely non compliant. She does not even want to get up by herself. She refuses medications, tests, and therapy. The son, Julio, is her only sewage treatment plant operator and he does not know if he can care for her at [facility]
[2023-04-11 16:30] LABS: Glucose Point of Care 148 mg/dl (65-105)
[2023-04-11] MEDS: CALCIUM CARBONATE (TUMS) 500 MG (200 MG ELEMENTAL) 400 MG PO (21:18)
[2023-04-11 21:21] LABS: Glucose Point of Care 211 mg/dl (65-105)
[2023-04-12] VITALS (13 sets, daily range): BP systolic 122–157; BP diastolic 52–69; PULSE 53–87; RESP 16–20; TEMP 36.3–37.5; O2SAT 96–98; BMI 31.6
[2023-04-12] MEDS: IPRATROPIUM BR 0.02% INH SOLN 0.5 MG/2.5 ML VIAL INHALATION ×4 (02:31→20:57)
[2023-04-12 06:53] LABS: Basophils Percent Auto 0.3 % (0.2-1.2); Eosinophils Absolute Auto 0.3 K/mm3 (0-0.3); Eosinophils Percent Auto 2.2 % (0-4.4); Hematocrit 35.3 % (37.0-47.0); Hemoglobin 10.7 g/dL (12.0-15.0); Immature Granulocyte Absolute 0.78 K/mm3 (0.00-0.031); Immature Granulocyte Percent A 6.5 % (0-0.5); Lymphocytes Absolute Auto 1.67 K/mm3 (0.9-3.2); Mean Corpuscular HGB Conc 30.3 g/dl (32-36); Mean Corpuscular Hemoglobin 30.3 pg (26-34); Mean Platelet Volume 9.4 fl (7.4-10.4); Monocytes Percent Auto 8.3 % (2.6-8.5); Neutrophils Absolute Auto 8.2 K/mm3 (1.3-6.7); Neutrophils Percent Auto 68.7 % (45.5-73.1); Platelet Count Result 481 k/mm3 (150-375); Red Blood Count 3.53 M/mm3 (4.2-5.4); Red Cell Distribution Width 14.6 % (11.5-14.5); White Blood Count 11.9 K/mm3 (4.5-10.0)
[2023-04-12 07:05] LABS: Alanine Aminotransferase 14 U/L (6-35); Albumin Level 2.8 g/dL (3.5-5.1); Alkaline Phosphatase 89 U/L (38-126); Anion Gap 4 mmol/L (8-16); Aspartate Amino Transferase 24 U/L (14-36); Bilirubin,Total 0.7 mg/dL (0.2-1.3); Blood Urea Nitrogen 40 mg/dL (7-17); Calcium 9.1 mg/dL (8.4-10.2); Carbon Dioxide 37 mmol/L (22-30); Chloride 97 mmol/L (98-107); Estimated CRCL calculation 35 ml/min; Estimated Glomerular Filt Rate 47; Glucose 162 mg/dL (65-110); Magnesium 1.9 mg/dL (1.6-2.3); Potassium 3.2 mmol/L (3.4-5.0); Sodium 138 mmol/L (137-145)
[2023-04-12 07:31] LABS: Glucose Point of Care 161 mg/dl (65-105)
[2023-04-12] MEDS: INSULIN HUMAN ISOPHAN/REGULAR 70/30 (*BKC) 100 UNITS/ML 8 UNITS SUB-Q ×3 (08:02→16:30)
[2023-04-12] MEDS: PANTOPRAZOLE 40 MG TABLET PO (08:05)
[2023-04-12] MEDS: FUROSEMIDE 40 MG TABLET PO (08:05)
[2023-04-12] MEDS: METOPROLOL TARTRATE 25 MG TABLET 125 MG PO ×2 (08:05→21:05)
[2023-04-12] MEDS: APIXABAN 5 MG TABLET PO ×2 (08:06→21:05)
[2023-04-12] MEDS: TOLNAFTATE 1% POWDER 45 GM BTL 1 APPLIC TOPICAL ×2 (08:06→21:07)
[2023-04-12] MEDS: SPIRONOLACTONE 25 MG TABLET PO (08:06)
[2023-04-12] MEDS: COLCHICINE 0.6 MG TABLET PO (08:07)
[2023-04-12] MEDS: CYANOCOBALAMIN 1,000 MCG TABLET 3000 MCG PO (08:08)
[2023-04-12] MEDS: acetaZOLAMIDE SODIUM FOR INJ 500 MG VIAL 250 MG IV PUSH (08:13)
[2023-04-12] MEDS: WATER, STERILE FOR INJECTION 10 ML VIAL XX (08:13)
[2023-04-12] MEDS: POTASSIUM CHLORIDE 20 MEQ ER TABLET 40 MEQ PO (08:55)
[2023-04-12 11:09] LABS: Glucose Point of Care 195 mg/dl (65-105)
--- NOTE | 2023-04-12 11:53 | PCOTNOTE ---
Patient refused treatment this session due to having to much pain. Patient reported not feeling well enough to try.
--- NOTE | 2023-04-12 14:45 | PCOTNOTE ---
Attempted to check back this afternoon. Patient is bed sleeping, states her belly hurts and declined to participate in any activities
--- NOTE | 2023-04-12 16:03 | PM.IMPN ---
Progress Note: A&P Assessment and Plan (1) Atrial fibrillation: Code(s): I48.91 - Unspecified atrial fibrillation Status: Acute (2) Acute CHF (congestive heart failure): Qualifiers: Heart failure type: unspecified Qualified Code(s): I50.9 - Heart failure, unspecified Code(s): I50.9 - Heart failure, unspecified Status: Acute (3) Generalized weakness: Code(s): R53.1 - Weakness Status: Acute (4) Difficulty in walking: Code(s): R26.2 - Difficulty in walking, not elsewhere classified Status: Acute (5) Acute hypoxic respiratory failure: Code(s): J96.01 - Acute respiratory failure with hypoxia Status: Acute Plan 82F w/ PMH systolic heart failure, IDDM, HTN, gout, OA, GERD, obesity presents with b/l LE swelling. Admitted on 04/03 for acute hypoxic respiratory failure and acute CHF # acute hypoxic respiratory failure 2/2 acutely decompensated systolic CHF - BNP on admission 1500 w/ pulmonary edema and LE swelling. LE dopplers neg for DVT. echo demonstrating diastolic grade 1 dysfunction. - some of her swelling may also be due to prolonged prednisone use, which was weaned off just prior to admission - cont fluid restriction 1500cc/day. was taken off lasix by PCP. restarted on admission. on 04/07 lasix changed from 40mg iv bid to 40mg po qday may need to resume IV diuretics. Continue oral diuresis - o2 down to 2L now. she may need this going home, probably has component of NEVILLE vs OHS vs obstructive disease (prior smoker). f/u with pulmonology w/ PFTS as outpatient - ipratropium nebs scheduled only (had tachycardia) # new onset a fib - EKG captured this admission, new diagnosis. started eliquis 5mg po BID, counseled on risks vs benefits. cont tele - home dose metoprolol increase from 100mg po bid to 150mg po bid. - TSH wnl. # elevated troponin/chest pain/SOB - patient typically becomes anxious and has SOB with chest pain and then enters a fib w/ RVR. her troponins are flat. lexiscan done on 04/07 demonstrating the following: IMPRESSION: 1. No definite ischemia or infarct. 2. Normal left ventricular ejection fraction measuring >70%. stress test portion demonstrating Summary ? 1. Please correlate with nuclear medicine images, reported separately. ? 2. Abnormal Lexiscan with ST segment depression consistent with myocardial ischemia. ? 3. Patient experienced SOB and CP with stress. ? 4. The supervising and interpreting physician is Dr. John Camara. The patient should follow up with cardiology as outpatient. The son prefers cardiology from [facility]. Pt already on metoprolol. Son wants to discuss aspirin and statin use. Ongoing OA of the b/l LEs complicates statin use and the recent initiation of eliquis and the patient's fall risk complicates aspirin use. Son also wants to review uric acid level WHICH is elevated at 12.9 to consider aspirin use. # abdominal pain: Nonspecific mild epigastric tenderness. Intermittent Tums use which health. Will get CT abdomen to rule out any intra-abdominal issue. Continue on PPI # IDDM - cont home regimen insulin. accuchecks and sliding scale . on 70/30 regimen at home. # HTN - controlled. as above # gout vs OA - gout was diagnosed by the son. Dr. Cross tried allopurinol which the patient did not tolerate due to diarrhea, then they pt was placed on prednisone but that has been recently weaned off due to generalized swelling. Pt does not appear to have gout but reexamination of b/l feet would be appropriate when swelling is further decreased. uric acid level elevated. Febuxostat trial may need. Need to be evaluated as an outpatient basis Trial of colchicine which she tolerated well. Continue colchicine 0.6 mg daily FEN: saline lock IV, cardiac diabetic diet GI prophylaxis: cont home protonix DVT prophylaxis: now on eliquis for recently dx a fib Lines: pIV Code Status: Full Code Dispo: stable. The patient is extremely non compliant. Sh
[2023-04-12 16:23] LABS: Glucose Point of Care 127 mg/dl (65-105)
[2023-04-12 21:19] LABS: Glucose Point of Care 144 mg/dl (65-105)
[2023-04-13] VITALS (14 sets, daily range): BP systolic 151–181; BP diastolic 57–98; PULSE 59–78; RESP 16–18; TEMP 36.1–36.8; O2SAT 95–99
[2023-04-13] MEDS: IPRATROPIUM BR 0.02% INH SOLN 0.5 MG/2.5 ML VIAL INHALATION ×3 (02:41→19:30)
[2023-04-13 06:15] LABS: Basophils Percent Auto 0.3 % (0.2-1.2); Eosinophils Absolute Auto 0.3 K/mm3 (0-0.3); Eosinophils Percent Auto 1.9 % (0-4.4); Hematocrit 32.9 % (37.0-47.0); Hemoglobin 10.1 g/dL (12.0-15.0); Immature Granulocyte Absolute 0.88 K/mm3 (0.00-0.031); Immature Granulocyte Percent A 6.6 % (0-0.5); Lymphocytes Percent Auto 11.2 % (18.3-44.2); Mean Corpuscular HGB Conc 30.7 g/dl (32-36); Mean Corpuscular Hemoglobin 30.4 pg (26-34); Mean Corpuscular Volume 99.1 fl (80-100); Mean Platelet Volume 9.3 fl (7.4-10.4); Monocytes Absolute Auto 1.1 K/mm3 (0.1-0.6); Monocytes Percent Auto 8.4 % (2.6-8.5); Neutrophils Absolute Auto 9.6 K/mm3 (1.3-6.7); Neutrophils Percent Auto 71.6 % (45.5-73.1); Platelet Count Result 491 k/mm3 (150-375); Red Blood Count 3.32 M/mm3 (4.2-5.4); Red Cell Distribution Width 14.3 % (11.5-14.5); White Blood Count 13.4 K/mm3 (4.5-10.0)
[2023-04-13 06:39] LABS: Alanine Aminotransferase 15 U/L (6-35); Albumin Level 2.7 g/dL (3.5-5.1); Alkaline Phosphatase 91 U/L (38-126); Anion Gap 5 mmol/L (8-16); Aspartate Amino Transferase 37 U/L (14-36); Bilirubin,Total 0.6 mg/dL (0.2-1.3); Blood Urea Nitrogen 34 mg/dL (7-17); Calcium 8.7 mg/dL (8.4-10.2); Carbon Dioxide 33 mmol/L (22-30); Chloride 101 mmol/L (98-107); Estimated CRCL calculation 38 ml/min; Estimated Glomerular Filt Rate 53; Glucose 141 mg/dL (65-110); Magnesium 1.9 mg/dL (1.6-2.3); Potassium 3.4 mmol/L (3.4-5.0); Sodium 139 mmol/L (137-145)
[2023-04-13] MEDS: METOPROLOL TARTRATE 25 MG TABLET 125 MG PO ×2 (06:47→21:02)
[2023-04-13 08:03] LABS: Glucose Point of Care 156 mg/dl (65-105)
[2023-04-13] MEDS: APIXABAN 5 MG TABLET PO ×2 (09:38→21:02)
[2023-04-13] MEDS: CYANOCOBALAMIN 1,000 MCG TABLET 3000 MCG PO (09:38)
[2023-04-13] MEDS: SPIRONOLACTONE 25 MG TABLET PO (09:38)
[2023-04-13] MEDS: FUROSEMIDE 40 MG TABLET PO (09:39)
[2023-04-13] MEDS: COLCHICINE 0.6 MG TABLET PO (09:39)
[2023-04-13] MEDS: PANTOPRAZOLE 40 MG TABLET PO (09:39)
[2023-04-13] MEDS: TOLNAFTATE 1% POWDER 45 GM BTL 1 APPLIC TOPICAL ×2 (09:40→21:08)
[2023-04-13] MEDS: INSULIN HUMAN ISOPHAN/REGULAR 70/30 (*BKC) 100 UNITS/ML 8 UNITS SUB-Q ×3 (09:40→17:33)
--- NOTE | 2023-04-13 10:53 | PCRCNOTE ---
Window of time for administration has passed. See next scheduled administration.
[2023-04-13] MEDS: LABETALOL HCL INJ 100 MG/20 ML VIAL 10 MG IV PUSH (11:06)
[2023-04-13 11:55] LABS: Glucose Point of Care 197 mg/dl (65-105)
[2023-04-13] MEDS: ACETAMINOPHEN 500 MG TABLET 1000 MG PO (12:26)
--- NOTE | 2023-04-13 14:08 | PM.IMPN ---
Progress Note: A&P Assessment and Plan (1) Atrial fibrillation: Code(s): I48.91 - Unspecified atrial fibrillation Status: Acute (2) Acute CHF (congestive heart failure): Qualifiers: Heart failure type: unspecified Qualified Code(s): I50.9 - Heart failure, unspecified Code(s): I50.9 - Heart failure, unspecified Status: Acute (3) Generalized weakness: Code(s): R53.1 - Weakness Status: Acute (4) Difficulty in walking: Code(s): R26.2 - Difficulty in walking, not elsewhere classified Status: Acute (5) Acute hypoxic respiratory failure: Code(s): J96.01 - Acute respiratory failure with hypoxia Status: Acute (6) Drug side effects: Code(s): T88.7XXA - Unspecified adverse effect of drug or medicament, initial encounter Status: Acute (7) Leukocytosis: Code(s): D72.829 - Elevated white blood cell count, unspecified Status: Acute Plan 82F w/ PMH systolic heart failure, IDDM, HTN, gout, OA, GERD, obesity presents with b/l LE swelling. Admitted on 04/03 for acute hypoxic respiratory failure and acute CHF. CHF is adequately treated. white count again increasing. check procal. CT scan abd and chest w/ contrast along with UA ordered and blood cultures to rule out infection. Otherwise, she is relatively stable and is finally agreeing to SNF for rehab. The patient has onset of diarrhea with initiation of colchicine and she is thinking it did not help her pain. She also doesn't have phenotypic appearance of gout at the feet. Pain description, exquisitely sharp at both feet is no more indicative of diabetic neuropathy. start gabapentin. The son, Julio, is present as usual and heavily involved in discussion and decision making. Full code. stable. on eliquis and protonix Subjective Date/time seen: 04/13/23 14:08 Interval history: naoe. patient complaints of diarrhea still after starting colchicine, she also doesn't think it has helped her pain at all. she is able to elaborate in further detail now about her pain. it is moreso the right leg, but in both legs. she describes a sharp shooting sensation from the bottom of the foot up to the knee. Review of Systems Review of Systems: All systems reviewed & are unremarkable except as noted in HPI and below Exam Const: General: comfortable and no acute distress Eyes: Pupils: Equal, round and reactive pupils present Neck: Neck: supple Resp: Effort & Inspection: normal respiratory effort Auscultation: clear to auscultation bilaterally Cardio: Rate: regular rate Rhythm: regular rhythm Heart sounds: no gallops, no murmurs and no rubs GI: GI Palp: Yes Soft to palpation and No Tenderness to palpation present (GI) Extrem: General: edema (1+ b/l LEs) Objective Data Vital Signs Vital Signs: Vital Signs - 24 hr 04/12/23 20:57 04/12/23 20:57 04/12/23 21:05 Temperature Pulse Rate 61 70 Respiratory Rate 18 Blood Pressure Pulse Oximetry 98 Oxygen Delivery Nasal Cannula Oxygen Flow Rate 2 04/12/23 20:26 04/12/23 21:15 04/13/23 02:41 Temperature 99.5 F Pulse Rate 53 L 63 62 Respiratory Rate 20 18 18 Blood Pressure 147/69 H Pulse Oximetry 97 Oxygen Delivery Oxygen Flow Rate 04/13/23 04:18 04/13/23 06:47 04/13/23 10:42 Temperature 97.1 F L Pulse Rate 62 72 Respiratory Rate 16 Blood Pressure 181/69 H 180/98 H Pulse Oximetry 98 Oxygen Delivery Oxygen Flow Rate 04/13/23 11:06 04/13/23 08:00 04/13/23 12:00 Temperature Pulse Rate 78 Respiratory Rate Blood Pressure 158/62 H Pulse Oximetry 96 Oxygen Delivery Nasal Cannula Oxygen Flow Rate 2 04/13/23 12:09 04/13/23 12:18 04/13/23 13:56 Temperature 97.0 F L Pulse Rate 61 60 61 Respiratory Rate 18 18 18 Blood Pressure 180/90 H Pulse Oximetry 99 Oxygen Delivery Oxygen Flow Rate Intake/Output Intake/Output: Intake & Output 04/10/23
[2023-04-13 15:50] LABS: Influenza A QL RT-PCR Negative (Negative); Influenza B QL RT-PCR Negative (Negative); RSV RNA, RT-PCR Negative (Negative); SARS-CoV-2 RNA PCR Negative (Negative)
[2023-04-13 16:47] LABS: Glucose Point of Care 229 mg/dl (65-105)
[2023-04-13] MEDS: INSULIN ASPART (*BKC) 100 UNITS/ML SUB-Q ×2 (17:33→21:03)
[2023-04-13 20:25] LABS: Glucose Point of Care 202 mg/dl (65-105)
[2023-04-14] VITALS (13 sets, daily range): BP systolic 135–173; BP diastolic 53–69; PULSE 58–68; RESP 14–18; TEMP 36.2–37.2; O2SAT 92–93
[2023-04-14 00:02] LABS: Toxigenic C. Diff POSITIVE (NEGATIVE)
--- NOTE | 2023-04-14 02:35 | PC.NURSE ---
Spoke with Dr. Sood at this time r/t patient stool resulting in C-Diff positive. New orders received for vancomycin 250 mg PO Q6H.
[2023-04-14] MEDS: IPRATROPIUM BR 0.02% INH SOLN 0.5 MG/2.5 ML VIAL INHALATION ×4 (02:58→21:50)
[2023-04-14] MEDS: VANCOMYCIN ORAL 125 MG/2.5 ML SYRUP PO ×4 (03:45→18:21)
[2023-04-14 06:03] LABS: Hematocrit 35.1 % (37.0-47.0); Hemoglobin 10.5 g/dL (12.0-15.0); Mean Corpuscular HGB Conc 29.9 g/dl (32-36); Mean Corpuscular Hemoglobin 29.7 pg (26-34); Mean Corpuscular Volume 99.2 fl (80-100); Mean Platelet Volume 9.3 fl (7.4-10.4); Platelet Count Result 518 k/mm3 (150-375); Red Blood Count 3.54 M/mm3 (4.2-5.4); Red Cell Distribution Width 14.2 % (11.5-14.5); White Blood Count 10.9 K/mm3 (4.5-10.0)
[2023-04-14 06:10] LABS: Alanine Aminotransferase 16 U/L (6-35); Albumin Level 2.8 g/dL (3.5-5.1); Alkaline Phosphatase 99 U/L (38-126); Anion Gap 2 mmol/L (8-16); Aspartate Amino Transferase 28 U/L (14-36); Bilirubin,Total 0.6 mg/dL (0.2-1.3); Blood Urea Nitrogen 25 mg/dL (7-17); Calcium 8.7 mg/dL (8.4-10.2); Carbon Dioxide 33 mmol/L (22-30); Chloride 102 mmol/L (98-107); Estimated CRCL calculation 42 ml/min; Estimated Glomerular Filt Rate 60; Glucose 148 mg/dL (65-110); Magnesium 1.9 mg/dL (1.6-2.3); Potassium 3.5 mmol/L (3.4-5.0); Sodium 137 mmol/L (137-145)
[2023-04-14 06:38] LABS: Procalcitonin 0.1 ng/mL
[2023-04-14 07:34] LABS: Glucose Point of Care 161 mg/dl (65-105)
[2023-04-14 07:41] LABS: Band Neutrophils Percent 3 % (0-6); Lymphocytes Absolute Manual 1.09 K/mm3 (1.1-4.5); Metamyelocytes Percent 4 %; Monocytes Absolute Manual 0.43 K/mm3 (0.1-0.90); Monocytes Percent Manual 4 % (3-9); Neutrophils Absolute Manual 8.93 K/mm3 (1.7-7.2); Neutrophils Percent Manual 79 % (46-73); Platelet Estimate Increased (Adequate); Total Cells Counted 100
[2023-04-14 07:42] LABS: Hypochromasia 1+ (NORMAL)
[2023-04-14] MEDS: INSULIN HUMAN ISOPHAN/REGULAR 70/30 (*BKC) 100 UNITS/ML 8 UNITS SUB-Q ×3 (09:02→18:21)
[2023-04-14] MEDS: SPIRONOLACTONE 25 MG TABLET PO (09:03)
[2023-04-14] MEDS: PANTOPRAZOLE 40 MG TABLET PO (09:03)
[2023-04-14] MEDS: CYANOCOBALAMIN 1,000 MCG TABLET 3000 MCG PO (09:03)
[2023-04-14] MEDS: APIXABAN 5 MG TABLET PO ×2 (09:03→21:17)
[2023-04-14] MEDS: TOLNAFTATE 1% POWDER 45 GM BTL 1 APPLIC TOPICAL ×2 (09:03→21:20)
[2023-04-14] MEDS: FUROSEMIDE 40 MG TABLET PO (09:03)
[2023-04-14] MEDS: METOPROLOL TARTRATE 25 MG TABLET 125 MG PO ×2 (09:03→21:16)
[2023-04-14] MEDS: GABAPENTIN 100 MG CAPSULE PO ×3 (09:03→18:27)
[2023-04-14] MEDS: ACETAMINOPHEN 500 MG TABLET 1000 MG PO ×2 (09:08→21:18)
[2023-04-14] MEDS: CALCIUM CARBONATE (TUMS) 500 MG (200 MG ELEMENTAL) 400 MG PO ×2 (09:09→21:16)
--- NOTE | 2023-04-14 10:25 | PCNFU ---
Nutrition Follow-Up Complete: suboptimal po intake related to appetite as evidenced by charted intake Goal:PO intake 50% or greater for all meals Pt is progressing towards goal. Continue with same goal Pt current nutrition is 2gm/Diabetic diet, 1500ml fluid restriction. Nutrition recommendation: continue with current plan of care Last recorded weight is 80.9 kg. Bowel Motility: +BM 04/13 - noted diarrhea Labs Reviewed: Hgb:10.5, HCT:35.1, Alb:2.8, BUN:25, Glu:148 Meds Noted: Eliquis, lasix, novolog Skin: no skin issues noted Additional Notes: Pt continues on a same diet, intake improved to 50% consistent intake of meals. Noted loose stools, Recommend to consider banatrol to help alleviate. Continue to encourage good po intake. Monitor intake, wt, labs. Follow up in 5 days.
[2023-04-14 10:55] LABS: Schistocytes None Seen (NORMAL)
[2023-04-14 12:06] LABS: Glucose Point of Care 195 mg/dl (65-105)
[2023-04-14 16:54] LABS: Glucose Point of Care 171 mg/dl (65-105)
--- NOTE | 2023-04-14 18:52 | PM.IMPN ---
Progress Note: A&P Assessment and Plan (1) C. difficile colitis: Code(s): A04.72 - Enterocolitis due to Clostridium difficile, not specified as recurrent Status: Acute (2) Hospital acquired PNA: Code(s): J18.9 - Pneumonia, unspecified organism; Y95 - Nosocomial condition Status: Acute Plan start vancomycin, contact precautions start cefepime and vancomycin for HCAP. likely a short course as she does not appear septic/toxic. trend white count and procal full code. oxygen is off now. attempted to contact gila Kim but no answer. Subjective Date/time seen: 04/14/23 18:52 Interval history: naoe. patient reports diarrhea is starting to improve already. no other complaints. Review of Systems Review of Systems: All systems reviewed & are unremarkable except as noted in HPI and below Exam Const: General: comfortable and no acute distress Eyes: Pupils: Equal, round and reactive pupils present Neck: Neck: supple Resp: Effort & Inspection: normal respiratory effort Cardio: Rate: regular rate Rhythm: regular rhythm GI: GI Palp: Yes Soft to palpation and No Tenderness to palpation present (GI) Extrem: General: no edema Objective Data Vital Signs Vital Signs: Vital Signs - 24 hr 04/13/23 19:30 04/13/23 19:41 04/13/23 19:41 Temperature Pulse Rate 66 62 Respiratory Rate 18 18 Blood Pressure Pulse Oximetry 95 Oxygen Delivery Nasal Cannula Oxygen Flow Rate 2 04/13/23 20:41 04/13/23 20:00 04/14/23 02:45 Temperature 98.3 F Pulse Rate 59 L 59 L Respiratory Rate 16 18 Blood Pressure 151/57 H Pulse Oximetry 99 99 Oxygen Delivery Nasal Cannula Oxygen Flow Rate 2 04/14/23 02:51 04/14/23 04:42 04/14/23 09:03 Temperature 98.3 F Pulse Rate 61 65 68 Respiratory Rate 18 16 Blood Pressure 173/53 H Pulse Oximetry 92 Oxygen Delivery Oxygen Flow Rate 04/14/23 08:00 04/14/23 14:27 04/14/23 09:32 Temperature Pulse Rate 60 58 L Respiratory Rate 16 14 Blood Pressure Pulse Oximetry 93 Oxygen Delivery Nasal Cannula Oxygen Flow Rate 2 04/14/23 14:31 04/14/23 14:31 04/14/23 14:00 Temperature 99.0 F Pulse Rate 59 L 61 Respiratory Rate 16 14 Blood Pressure 135/54 L Pulse Oximetry 93 93 Oxygen Delivery Room Air Oxygen Flow Rate 04/14/23 09:39 Temperature Pulse Rate 58 L Respiratory Rate 14 Blood Pressure Pulse Oximetry Oxygen Delivery Oxygen Flow Rate Intake/Output Intake/Output: Intake & Output 04/11/23 04/12/23 04/13/23 04/14/23 23:59 23:59 23:59 23:59 Intake Total 478 720 720 240 Output Total 1050 500 Balance -572 220 720 240 Meds/Results Medications: Active Medications Generic Name Dose Route Start Last Admin Trade Name Freq PRN Reason Stop Dose Admin Acetaminophen 1,000 mg 04/03/23 03:42 04/14/23 09:08 Acetaminophen 500 Mg Tablet PO 1,000 mg Q6H PRN Administration pain 1-3 Albuterol 2 puff 04/03/23 03:42 Albuterol Sulfate (*Sp) Aerosol 1 Puff INHALATION Q2HRT PRN shortness of breath or wheezing Apixaban 5 mg 04/03/23 21:00 04/14/23 09:03 Apixaban 5 Mg Tablet PO 5 mg Q12HR ROSEMARIE Administration Calcium Carbonate 400 mg 04/06/23 20:56 04/14/23 09:09 Calcium Carbonate (Tums) 500 Mg (200 Mg Elemental) PO 400 mg Q6H PRN Administration Indigestion Capsaicin 1 applic 04/05/23 15:23 04/09/23 17:04 Capsaicin 0.025% Cream 60 Gm Tube TOPICAL 1 applic Q6H PRN Administration Muscle/Joint Pain Cyanocobalamin 3,000 mcg 04/03/23 09:00 04/14/23 09:03 Cyanocobalamin 1,000 Mcg Tablet PO 3,000 mcg QAM ROSEMARIE Administration Dextrose 12.5 gm 04/03/23 14:43 Dextrose 50% 25 Gm/50 Ml Syringe IV PUSH PRN PRN Hypoglycemia Protocol Furosemide 40 mg 04/08/23 09:00 04/14/23 09:03 Furosemide 40 Mg Tablet PO 40 mg DAILY ROSEMARIE Administration Gabapentin 100 mg 04/14/23 09:00
[2023-04-14] MEDS: CEFEPIME 2 GM/NS 50 ML 2 GM/50 ML BAG IVPB (21:10)
[2023-04-14] MEDS: INSULIN ASPART (*BKC) 100 UNITS/ML SUB-Q (21:23)
[2023-04-14] MEDS: VANCOMYCIN 2,000 MG/NS 500 ML 2,000 MG/500 ML BAG 250 MG IVPB (21:29)
[2023-04-14 21:52] LABS: Glucose Point of Care 221 mg/dl (65-105)
[2023-04-14] MEDS: VANCOMYCIN HCL 125 MG ORAL CAPSULE PO (23:42)
[2023-04-15] VITALS (8 sets, daily range): BP systolic 148–168; BP diastolic 59–79; PULSE 62–78; RESP 14–18; TEMP 36.2–36.7; O2SAT 91–94
[2023-04-15 01:20] LABS: MRSA (PCR) NOT DETECTED (NOT DETECTE)
[2023-04-15] MEDS: VANCOMYCIN HCL 125 MG ORAL CAPSULE PO ×3 (06:07→18:30)
[2023-04-15] MEDS: CEFEPIME 2 GM/NS 50 ML 2 GM/50 ML BAG IVPB ×2 (06:07→18:30)
[2023-04-15 07:29] LABS: Hematocrit 34.9 % (37.0-47.0); Hemoglobin 10.9 g/dL (12.0-15.0); Mean Corpuscular HGB Conc 31.2 g/dl (32-36); Mean Corpuscular Hemoglobin 30.7 pg (26-34); Mean Corpuscular Volume 98.3 fl (80-100); Platelet Count Result 490 k/mm3 (150-375); Red Blood Count 3.55 M/mm3 (4.2-5.4); Red Cell Distribution Width 14.4 % (11.5-14.5); White Blood Count 11.8 K/mm3 (4.5-10.0)
[2023-04-15 07:39] LABS: Alanine Aminotransferase 16 U/L (6-35); Albumin Level 2.9 g/dL (3.5-5.1); Alkaline Phosphatase 91 U/L (38-126); Anion Gap 5 mmol/L (8-16); Aspartate Amino Transferase 28 U/L (14-36); Bilirubin,Total 0.7 mg/dL (0.2-1.3); Blood Urea Nitrogen 22 mg/dL (7-17); Calcium 8.6 mg/dL (8.4-10.2); Carbon Dioxide 31 mmol/L (22-30); Chloride 105 mmol/L (98-107); Estimated CRCL calculation 42 ml/min; Estimated Glomerular Filt Rate 60; Glucose 173 mg/dL (65-110); Magnesium 1.8 mg/dL (1.6-2.3); Potassium 3.5 mmol/L (3.4-5.0); Sodium 141 mmol/L (137-145)
[2023-04-15] MEDS: IPRATROPIUM BR 0.02% INH SOLN 0.5 MG/2.5 ML VIAL INHALATION ×2 (07:45→13:36)
[2023-04-15 08:00] LABS: Glucose Point of Care 168 mg/dl (65-105)
[2023-04-15 08:01] LABS: Appearance Urine Turbid (Clear); Bacteria Urine 4+ /hpf; Bilirubin Urine Negative (Negative); Blood Urine 1+ (Negative); Color Urine Yellow (Yellow); Glucose Urine UA Negative (Negative); Ketones Urine Negative (Negative); Leukocyte Esterase Ur 2+ LEU/UL (NEGATIVE); Need Manual Microscopic Reviewed; Nitrate Urine Positive (Negative); Protein Urine Trace mg/dL (Negative); RBC Urine 0-2 /hpf (0-2); Specific Grav Ur 1.024 (1.001-1.035); Squamous Epithelial Cell Urine None seen /hpf (Few); Urobilinogen Urine 0.2 mg/dL (<2.0); WBC Urine >100 /hpf (0-3)
[2023-04-15 08:03] LABS: Add Urine Microscopic? YES
[2023-04-15 08:15] LABS: Lymphocytes Absolute Manual 1.88 K/mm3 (1.1-4.5); Monocytes Absolute Manual 0.35 K/mm3 (0.1-0.90); Monocytes Percent Manual 3 % (3-9); Neutrophils Percent Manual 81 % (46-73); Platelet Estimate Increased (Adequate); Total Cells Counted 100
[2023-04-15 08:16] LABS: Schistocytes None Seen (NORMAL)
[2023-04-15] MEDS: INSULIN HUMAN ISOPHAN/REGULAR 70/30 (*BKC) 100 UNITS/ML 8 UNITS SUB-Q ×3 (08:34→16:49)
[2023-04-15] MEDS: METOPROLOL TARTRATE 25 MG TABLET 125 MG PO ×2 (08:35→21:02)
[2023-04-15] MEDS: APIXABAN 5 MG TABLET PO ×2 (08:35→21:02)
[2023-04-15] MEDS: GABAPENTIN 100 MG CAPSULE PO ×3 (08:35→16:48)
[2023-04-15] MEDS: CYANOCOBALAMIN 1,000 MCG TABLET 3000 MCG PO (08:35)
[2023-04-15] MEDS: SPIRONOLACTONE 25 MG TABLET PO (08:35)
[2023-04-15] MEDS: PANTOPRAZOLE 40 MG TABLET PO (08:35)
[2023-04-15] MEDS: TOLNAFTATE 1% POWDER 45 GM BTL 1 APPLIC TOPICAL ×2 (08:35→21:02)
[2023-04-15] MEDS: FUROSEMIDE 40 MG TABLET PO (08:35)
[2023-04-15 09:18] LABS: Procalcitonin 0.1 ng/mL
[2023-04-15 12:20] LABS: Glucose Point of Care 218 mg/dl (65-105)
[2023-04-15] MEDS: INSULIN ASPART (*BKC) 100 UNITS/ML SUB-Q (12:36)
--- NOTE | 2023-04-15 14:41 | PM.IMPN ---
Progress Note: A&P Assessment and Plan (1) Acute CHF (congestive heart failure): Qualifiers: Heart failure type: unspecified Qualified Code(s): I50.9 - Heart failure, unspecified Code(s): I50.9 - Heart failure, unspecified Status: Acute (2) Hospital acquired PNA: Code(s): J18.9 - Pneumonia, unspecified organism; Y95 - Nosocomial condition Status: Acute (3) C. difficile colitis: Code(s): A04.72 - Enterocolitis due to Clostridium difficile, not specified as recurrent Status: Acute (4) Leukocytosis: Code(s): D72.829 - Elevated white blood cell count, unspecified Status: Acute (5) Atrial fibrillation: Code(s): I48.91 - Unspecified atrial fibrillation Status: Acute (6) Generalized weakness: Code(s): R53.1 - Weakness Status: Acute (7) Difficulty in walking: Code(s): R26.2 - Difficulty in walking, not elsewhere classified Status: Acute (8) Acute hypoxic respiratory failure: Code(s): J96.01 - Acute respiratory failure with hypoxia Status: Acute Plan 82F w/ PMH systolic heart failure, IDDM, HTN, gout, OA, GERD, obesity presents with b/l LE swelling. Admitted on 04/03 for acute hypoxic respiratory failure and acute CHF # acute hypoxic respiratory failure 2/2 acutely decompensated systolic CHF - BNP on admission 1500 w/ pulmonary edema and LE swelling. LE dopplers neg for DVT. echo demonstrating diastolic grade 1 dysfunction. - some of her swelling may have also been due to prolonged prednisone use as she had signs of anasarca, prednisone was just weaned prior to admission - cont fluid restriction 1500cc/day. was taken off lasix by PCP. restarted on admission. cont oral diuresis - o2 required many days to wean off, probably has component of NEVILLE vs OHS vs obstructive disease (prior smoker). f/u with pulmonology w/ PFTS as outpatient - nebs have been dc'ed. # leukocytosis - this has been persistent. on 04/[address] abd pelv and chest to investigate further. possible pneumonia suggested. received one day of vancomycin but since dc'ed since MRSA PCR negative. 04/14 cefepime started. suggest continuing for 7 days but de escalating to augmentin soon given she does not appear toxic. leukocytosis likely largely related to c diff colitis - c diff colitis. vancomycin PO started 04/13. diarrhea improving. ctm wbc. # new onset a fib - EKG captured this admission, new diagnosis. started eliquis 5mg po BID, counseled on risks vs benefits. cont tele - home dose metoprolol now at 150mg po bid with adequate control of HR. - TSH wnl. # elevated troponin/chest pain/SOB - patient typically becomes anxious and has SOB with chest pain and then enters a fib w/ RVR. her troponins are flat. lexiscan done on 04/07 demonstrating the following: IMPRESSION: 1. No definite ischemia or infarct. 2. Normal left ventricular ejection fraction measuring >70%. stress test portion demonstrating Summary ? 1. Please correlate with nuclear medicine images, reported separately. ? 2. Abnormal Lexiscan with ST segment depression consistent with myocardial ischemia. ? 3. Patient experienced SOB and CP with stress. ? 4. The supervising and interpreting physician is Dr. John Camara. The patient should follow up with cardiology as outpatient. The son prefers cardiology from [facility]. Pt already on metoprolol. Pt and son elected not to use aspirin due to high uric acid level and not to use statin given she has issues already with leg pain. # left kidney cystic mass - appears benign. serial monitoring outpatient. # IDDM - cont home regimen insulin. accuchecks and sliding scale. on 70/30 regimen at home. # HTN - controlled. as above # gout vs OA vs diabetic neuropathy - gout was diagnosed by the son. Dr. Cross tried allopurinol which the patient did not tolerate due to diarrhea, then they pt was placed on prednisone but that has been recently weaned off due to generali
[2023-04-15] MEDS: CALCIUM CARBONATE (TUMS) 500 MG (200 MG ELEMENTAL) 400 MG PO (16:48)
[2023-04-15] MEDS: ACETAMINOPHEN 500 MG TABLET 1000 MG PO (16:48)
[2023-04-15 17:02] LABS: Glucose Point of Care 156 mg/dl (65-105)
[2023-04-15] MEDS: CAPSAICIN 0.025% CREAM 60 GM TUBE 1 APPLIC TOPICAL (21:01)
[2023-04-15 21:23] LABS: Glucose Point of Care 126 mg/dl (65-105)
[2023-04-16] MEDS: VANCOMYCIN HCL 125 MG ORAL CAPSULE PO ×4 (00:25→17:49)
[2023-04-16 05:17] VITALS: BP 175/61; PULSE 63; RESP 14; TEMP 36.6; O2SAT 94
[2023-04-16 06:31] LABS: Hematocrit 35.7 % (37.0-47.0); Mean Corpuscular HGB Conc 30.8 g/dl (32-36); Mean Corpuscular Hemoglobin 30.3 pg (26-34); Mean Corpuscular Volume 98.3 fl (80-100); Mean Platelet Volume 9.5 fl (7.4-10.4); Platelet Count Result 517 k/mm3 (150-375); Red Blood Count 3.63 M/mm3 (4.2-5.4); Red Cell Distribution Width 14.5 % (11.5-14.5); White Blood Count 10.3 K/mm3 (4.5-10.0)
[2023-04-16] MEDS: CEFEPIME 2 GM/NS 50 ML 2 GM/50 ML BAG IVPB ×2 (06:32→17:49)
[2023-04-16 06:45] LABS: Anion Gap 9 mmol/L (8-16); Blood Urea Nitrogen 20 mg/dL (7-17); Calcium 8.9 mg/dL (8.4-10.2); Carbon Dioxide 28 mmol/L (22-30); Chloride 103 mmol/L (98-107); Estimated CRCL calculation 47 ml/min; Estimated Glomerular Filt Rate > 60; Glucose 167 mg/dL (65-110); Magnesium 1.7 mg/dL (1.6-2.3); Potassium 3.8 mmol/L (3.4-5.0); Sodium 140 mmol/L (137-145)
[2023-04-16 07:37] LABS: Glucose Point of Care 174 mg/dl (65-105)
[2023-04-16 07:56] LABS: Procalcitonin 0.1 ng/mL
[2023-04-16 08:24] VITALS: PULSE 64
[2023-04-16] MEDS: ACETAMINOPHEN 500 MG TABLET 1000 MG PO (08:24)
[2023-04-16] MEDS: METOPROLOL TARTRATE 25 MG TABLET 125 MG PO ×2 (08:24→21:07)
[2023-04-16] MEDS: SPIRONOLACTONE 25 MG TABLET PO (08:24)
[2023-04-16] MEDS: CYANOCOBALAMIN 1,000 MCG TABLET 3000 MCG PO (08:24)
[2023-04-16] MEDS: PANTOPRAZOLE 40 MG TABLET PO (08:25)
[2023-04-16] MEDS: APIXABAN 5 MG TABLET PO ×2 (08:25→21:08)
[2023-04-16] MEDS: GABAPENTIN 100 MG CAPSULE PO ×3 (08:25→17:49)
[2023-04-16] MEDS: FUROSEMIDE 40 MG TABLET PO (08:25)
[2023-04-16] MEDS: TOLNAFTATE 1% POWDER 45 GM BTL 1 APPLIC TOPICAL ×2 (08:26→21:08)
[2023-04-16] MEDS: INSULIN HUMAN ISOPHAN/REGULAR 70/30 (*BKC) 100 UNITS/ML 8 UNITS SUB-Q ×3 (08:37→17:48)
[2023-04-16 09:09] LABS: Band Neutrophils Percent 2 % (0-6); Hypochromasia 1+ (NORMAL); Lymphocytes Absolute Manual 0.82 K/mm3 (1.1-4.5); Metamyelocytes Percent 2 %; Monocytes Absolute Manual 0.61 K/mm3 (0.1-0.90); Monocytes Percent Manual 6 % (3-9); Neutrophils Absolute Manual 8.65 K/mm3 (1.7-7.2); Neutrophils Percent Manual 82 % (46-73); Platelet Estimate Increased (Adequate); Schistocytes None Seen (NORMAL); Total Cells Counted 100
[2023-04-16 11:31] LABS: Glucose Point of Care 220 mg/dl (65-105)
[2023-04-16] MEDS: INSULIN ASPART (*BKC) 100 UNITS/ML SUB-Q (12:14)
--- NOTE | 2023-04-16 13:07 | PM.IMPN ---
Progress Note: A&P Assessment and Plan (1) Acute CHF (congestive heart failure): Qualifiers: Heart failure type: unspecified Qualified Code(s): I50.9 - Heart failure, unspecified Code(s): I50.9 - Heart failure, unspecified Status: Acute Assessment and Plan: Today patient is feeling slightly better. Will continue current treatment monitor I&Os. (2) Hospital acquired PNA: Code(s): J18.9 - Pneumonia, unspecified organism; Y95 - Nosocomial condition Status: Acute Assessment and Plan: Improving gradually, continue with antibiotic. (3) C. difficile colitis: Code(s): A04.72 - Enterocolitis due to Clostridium difficile, not specified as recurrent Status: Acute Assessment and Plan: Much better, continue current treatment. (4) Leukocytosis: Code(s): D72.829 - Elevated white blood cell count, unspecified Status: Acute Assessment and Plan: WBC is improving, continue with antibiotics. (5) Atrial fibrillation: Code(s): I48.91 - Unspecified atrial fibrillation Status: Acute Assessment and Plan: Stable and heart rate is controlled. (6) Generalized weakness: Code(s): R53.1 - Weakness Status: Acute Assessment and Plan: Encouraged to exercise, will start physical therapy. (7) Difficulty in walking: Code(s): R26.2 - Difficulty in walking, not elsewhere classified Status: Acute Assessment and Plan: Continue with exercise program. (8) Acute hypoxic respiratory failure: Code(s): J96.01 - Acute respiratory failure with hypoxia Status: Acute Assessment and Plan: Stable, continue current treatment. Plan 82F w/ PMH systolic heart failure, IDDM, HTN, gout, OA, GERD, obesity presents with b/l LE swelling. Admitted on 04/03 for acute hypoxic respiratory failure and acute CHF # acute hypoxic respiratory failure 2/2 acutely decompensated systolic CHF - BNP on admission 1500 w/ pulmonary edema and LE swelling. LE dopplers neg for DVT. echo demonstrating diastolic grade 1 dysfunction. - some of her swelling may have also been due to prolonged prednisone use as she had signs of anasarca, prednisone was just weaned prior to admission - cont fluid restriction 1500cc/day. was taken off lasix by PCP. restarted on admission. cont oral diuresis - o2 required many days to wean off, probably has component of NEVILLE vs OHS vs obstructive disease (prior smoker). f/u with pulmonology w/ PFTS as outpatient - nebs have been dc'ed. # leukocytosis - this has been persistent. on 04/[address] abd pelv and chest to investigate further. possible pneumonia suggested. received one day of vancomycin but since dc'ed since MRSA PCR negative. 04/14 cefepime started. suggest continuing for 7 days but de escalating to augmentin soon given she does not appear toxic. leukocytosis likely largely related to c diff colitis - c diff colitis. vancomycin PO started 04/13. diarrhea improving. ctm wbc. # new onset a fib - EKG captured this admission, new diagnosis. started eliquis 5mg po BID, counseled on risks vs benefits. cont tele - home dose metoprolol now at 150mg po bid with adequate control of HR. - TSH wnl. # elevated troponin/chest pain/SOB - patient typically becomes anxious and has SOB with chest pain and then enters a fib w/ RVR. her troponins are flat. lexiscan done on 04/07 demonstrating the following: IMPRESSION: 1. No definite ischemia or infarct. 2. Normal left ventricular ejection fraction measuring >70%. stress test portion demonstrating Summary ? 1. Please correlate with nuclear medicine images, reported separately. ? 2. Abnormal Lexiscan with ST segment depression consistent with myocardial ischemia. ? 3. Patient experienced SOB and CP with stress. ? 4. The supervising and interpreting physician is Dr. John Camara. The patient should follow up with cardiology as outpatient. The son prefers cardiology from
[2023-04-16 14:00] VITALS: BP 175/75; PULSE 58; RESP 14; TEMP 36.3; O2SAT 95
[2023-04-16] MEDS: ALBUTEROL SULFATE (*SP) AEROSOL 1 PUFF 2 PUFF INHALATION (14:33)
[2023-04-16 16:31] LABS: Glucose Point of Care 162 mg/dl (65-105)
[2023-04-16 21:07] VITALS: PULSE 67
[2023-04-16 21:14] LABS: Glucose Point of Care 197 mg/dl (65-105)
[2023-04-16 21:33] VITALS: BP 180/52; PULSE 66; RESP 20; TEMP 36.9; O2SAT 94
[2023-04-17] MEDS: VANCOMYCIN HCL 125 MG ORAL CAPSULE PO ×2 (00:16→05:33)
[2023-04-17] MEDS: CALCIUM CARBONATE (TUMS) 500 MG (200 MG ELEMENTAL) 400 MG PO (05:33)
[2023-04-17] MEDS: CEFEPIME 2 GM/NS 50 ML 2 GM/50 ML BAG IVPB ×2 (05:33→18:22)
[2023-04-17 06:00] VITALS: BP 170/74; PULSE 65; RESP 16; TEMP 36.9; O2SAT 94
[2023-04-17 07:37] LABS: Glucose Point of Care 205 mg/dl (65-105)
[2023-04-17] MEDS: INSULIN HUMAN ISOPHAN/REGULAR 70/30 (*BKC) 100 UNITS/ML 8 UNITS SUB-Q ×3 (09:11→16:39)
[2023-04-17] MEDS: INSULIN ASPART (*BKC) 100 UNITS/ML SUB-Q ×4 (09:11→21:08)
[2023-04-17] MEDS: GABAPENTIN 100 MG CAPSULE PO ×3 (09:13→16:39)
[2023-04-17] MEDS: FUROSEMIDE 40 MG TABLET PO (09:13)
[2023-04-17] MEDS: CYANOCOBALAMIN 1,000 MCG TABLET 3000 MCG PO (09:13)
[2023-04-17] MEDS: lisinopriL 10 MG TABLET PO (09:14)
[2023-04-17] MEDS: PANTOPRAZOLE 40 MG TABLET PO (09:14)
[2023-04-17] MEDS: SPIRONOLACTONE 25 MG TABLET PO (09:14)
[2023-04-17] MEDS: APIXABAN 5 MG TABLET PO ×2 (09:14→21:08)
[2023-04-17] MEDS: TOLNAFTATE 1% POWDER 45 GM BTL 1 APPLIC TOPICAL ×2 (09:16→20:30)
[2023-04-17 09:23] VITALS: PULSE 69
[2023-04-17] MEDS: METOPROLOL TARTRATE 25 MG TABLET 125 MG PO ×2 (09:23→21:08)
[2023-04-17 11:39] LABS: Glucose Point of Care 220 mg/dl (65-105)
[2023-04-17] MEDS: VANCOMYCIN HCL 250 MG ORAL CAPSULE 500 MG PO ×2 (12:07→16:54)
--- NOTE | 2023-04-17 13:02 | PM.IMPN ---
Progress Note: A&P Assessment and Plan (1) Acute hypoxic respiratory failure: Code(s): J96.01 - Acute respiratory failure with hypoxia Status: Acute Assessment and Plan: Secondary to acutely decompensated diastolic CHF - BNP on admission 1500 w/ pulmonary edema and LE swelling. LE dopplers neg for DVT. echo demonstrating EF 65-70%, diastolic grade 1 dysfunction. - some of her swelling may have also been due to prolonged prednisone use as she had signs of anasarca, prednisone was just weaned prior to admission - cont fluid restriction 1500cc/day. was taken off lasix by PCP. restarted on admission. cont oral diuresis - Consider a component of NEVILLE vs OHS vs obstructive disease (prior smoker). f/u with pulmonology w/ PFTS as outpatient - nebs have been dc'ed. Weaned to room air. (2) C. difficile colitis: Code(s): A04.72 - Enterocolitis due to Clostridium difficile, not specified as recurrent Status: Acute Assessment and Plan: Patient with extensive number of stools yesterday. Continue to monitor stool output. Will advance vancomycin dosing. (3) Acute CHF (congestive heart failure): Qualifiers: Heart failure type: unspecified Qualified Code(s): I50.9 - Heart failure, unspecified Code(s): I50.9 - Heart failure, unspecified Status: Acute Assessment and Plan: Acute on chronic diastolic CHF Patient was treated with a few doses of IV Lasix but has been on oral Lasix since 04/08/2023. Clinically appears euvolemic. Continue metoprolol and spironolactone. As above (4) Elevated troponin: Code(s): R79.89 - Other specified abnormal findings of blood chemistry Status: Acute Assessment and Plan: - patient typically becomes anxious and has SOB with chest pain and then enters a fib w/ RVR. her troponins are flat. lexiscan done on 04/07 demonstrating the following: IMPRESSION: 1. No definite ischemia or infarct. 2. Normal left ventricular ejection fraction measuring >70%. stress test portion demonstrating Summary ? 1. Please correlate with nuclear medicine images, reported separately. ? 2. Abnormal Lexiscan with ST segment depression consistent with myocardial ischemia. ? 3. Patient experienced SOB and CP with stress. ? 4. The supervising and interpreting physician is Dr. John Camara. The patient should follow up with cardiology as outpatient. The son prefers cardiology from [facility]. Pt already on metoprolol. Pt and son elected not to use aspirin due to high uric acid level and not to use statin given she has issues already with leg pain. (5) Hospital acquired PNA: Code(s): J18.9 - Pneumonia, unspecified organism; Y95 - Nosocomial condition Status: Acute Assessment and Plan: Patient had increasing white count that prompted a CT of the chest 04/13. CT shows minimal patchy airspace opacity throughout the lungs concerning for pneumonia. She was started on vancomycin and cefepime 04/14. MRSA nasal swab PCR was negative so vancomycin was stopped. Continue the same (6) Leukocytosis: Code(s): D72.829 - Elevated white blood cell count, unspecified Status: Acute Assessment and Plan: Patient with mild leukocytosis seen in the 10-13 range. [place] related to above. (7) Atrial fibrillation: Code(s): I48.91 - Unspecified atrial fibrillation Status: Acute Assessment and Plan: Patient has had episodes of AFib with RVR. New onset AFib. EKG captured this admission, new diagnosis. Started eliquis 5mg po BID, counseled on risks vs benefits TSH wnl. She required treatment with IV metoprolol and IV diltiazem at times. Her oral metoprolol was resumed and dose was advanced. She was started on Eliquis for stroke prophylaxis. Heart rate remains well controlled. Continue to follow. (8) Generalized weakness: Code(s): R53.1 - Weakness Status: Acute Assessment and Plan: Patient wit
[2023-04-17 14:00] VITALS: BP 166/50; PULSE 58; RESP 17; TEMP 36.9; O2SAT 93
[2023-04-17 16:35] LABS: Glucose Point of Care 212 mg/dl (65-105)
[2023-04-17] MEDS: CAPSAICIN 0.025% CREAM 60 GM TUBE 1 APPLIC TOPICAL (18:29)
[2023-04-17 20:00] VITALS: O2SAT 92
[2023-04-17 20:54] VITALS: BP 151/76; PULSE 73; RESP 18; TEMP 36.4; O2SAT 92
[2023-04-17 22:20] LABS: Glucose Point of Care 209 mg/dl (65-105)
[2023-04-18 00:32] LABS: Pneumococcal Antigen Urine Not Detected (Not Detected)
[2023-04-18] MEDS: VANCOMYCIN HCL 250 MG ORAL CAPSULE 500 MG PO ×4 (00:40→17:59)
[2023-04-18 03:03] LABS: Legionella pneumophila Ag Ur Not Detected (Not Detected)
[2023-04-18 05:01] VITALS: BP 155/66; PULSE 68; RESP 18; TEMP 36.4; O2SAT 94
[2023-04-18 06:31] LABS: Hematocrit 34.5 % (37.0-47.0); Hemoglobin 10.8 g/dL (12.0-15.0); Mean Corpuscular HGB Conc 31.3 g/dl (32-36); Mean Corpuscular Hemoglobin 30.6 pg (26-34); Mean Corpuscular Volume 97.7 fl (80-100); Mean Platelet Volume 9.4 fl (7.4-10.4); Platelet Count Result 453 k/mm3 (150-375); Red Blood Count 3.53 M/mm3 (4.2-5.4); Red Cell Distribution Width 14.9 % (11.5-14.5); White Blood Count 12.2 K/mm3 (4.5-10.0)
[2023-04-18] MEDS: CEFEPIME 2 GM/NS 50 ML 2 GM/50 ML BAG IVPB ×2 (06:31→18:10)
[2023-04-18 06:53] LABS: Anion Gap 2 mmol/L (8-16); Blood Urea Nitrogen 24 mg/dL (7-17); Calcium 8.4 mg/dL (8.4-10.2); Carbon Dioxide 32 mmol/L (22-30); Chloride 105 mmol/L (98-107); Estimated CRCL calculation 42 ml/min; Estimated Glomerular Filt Rate 60; Glucose 189 mg/dL (65-110); Potassium 3.7 mmol/L (3.4-5.0); Sodium 139 mmol/L (137-145)
[2023-04-18 08:06] LABS: Glucose Point of Care 196 mg/dl (65-105)
[2023-04-18 09:47] VITALS: PULSE 68
[2023-04-18] MEDS: METOPROLOL TARTRATE 25 MG TABLET 125 MG PO ×2 (09:47→21:43)
[2023-04-18] MEDS: SPIRONOLACTONE 25 MG TABLET PO (09:47)
[2023-04-18] MEDS: GABAPENTIN 100 MG CAPSULE PO ×3 (09:48→17:59)
[2023-04-18] MEDS: APIXABAN 5 MG TABLET PO ×2 (09:48→21:43)
[2023-04-18] MEDS: TOLNAFTATE 1% POWDER 45 GM BTL 1 APPLIC TOPICAL ×2 (09:48→21:45)
[2023-04-18] MEDS: CYANOCOBALAMIN 1,000 MCG TABLET 3000 MCG PO (09:48)
[2023-04-18] MEDS: FUROSEMIDE 40 MG TABLET PO (09:48)
[2023-04-18] MEDS: PANTOPRAZOLE 40 MG TABLET PO (09:48)
[2023-04-18] MEDS: lisinopriL 10 MG TABLET PO (09:48)
[2023-04-18] MEDS: INSULIN HUMAN ISOPHAN/REGULAR 70/30 (*BKC) 100 UNITS/ML 8 UNITS SUB-Q (09:52)
[2023-04-18 11:25] LABS: Glucose Point of Care 290 mg/dl (65-105)
--- NOTE | 2023-04-18 11:39 | PM.IMPN ---
Progress Note: A&P Assessment and Plan (1) Acute hypoxic respiratory failure: Code(s): J96.01 - Acute respiratory failure with hypoxia Status: Acute Assessment and Plan: Secondary to acute on chronic diastolic CHF - BNP on admission 1500 w/ pulmonary edema and LE swelling. LE dopplers neg for DVT. Echo demonstrating EF 65-70%, diastolic grade 1 dysfunction. - some of her swelling may have also been due to prolonged prednisone use as she had signs of anasarca, prednisone was just weaned prior to admission - cont fluid restriction 1500cc/day. was taken off lasix by PCP. restarted on admission. cont oral diuresis - Consider a component of NEVILLE vs OHS vs obstructive disease (prior smoker). f/u with pulmonology w/ PFTS as outpatient - nebs have been dc'ed. Weaned to room air. (2) C. difficile colitis: Code(s): A04.72 - Enterocolitis due to Clostridium difficile, not specified as recurrent Status: Acute Assessment and Plan: Patient with extensive number of stools 04/16 but improveing now. Continue to monitor stool output. Continue current vancomycin dosing. (3) Acute CHF (congestive heart failure): Qualifiers: Heart failure type: unspecified Qualified Code(s): I50.9 - Heart failure, unspecified Code(s): I50.9 - Heart failure, unspecified Status: Acute Assessment and Plan: Acute on chronic diastolic CHF Patient was treated with a few doses of IV Lasix but has been on oral Lasix since 04/08/2023. Clinically appears euvolemic. Continue metoprolol and spironolactone. Renal function stable As above (4) Elevated troponin: Code(s): R79.89 - Other specified abnormal findings of blood chemistry Status: Acute Assessment and Plan: Patient typically becomes anxious and has SOB with chest pain Troponins are flat. Lexiscan done on 04/[address] segment depression but nuclear imaes showing no definitive ischemia or infarct with normal LVEF 70% The patient should follow up with cardiology as outpatient. The son prefers cardiology from [facility]. Pt already on metoprolol. Pt and son elected not to use aspirin due to high uric acid level and not to use statin given she has issues already with leg pain. Continue medical management (5) Hospital acquired PNA: Code(s): J18.9 - Pneumonia, unspecified organism; Y95 - Nosocomial condition Status: Acute Assessment and Plan: Patient had increasing white count that prompted a CT of the chest 04/13. CT shows minimal patchy airspace opacity throughout the lungs concerning for pneumonia. She was started on vancomycin and cefepime 04/14. MRSA nasal swab PCR was negative so vancomycin was stopped. Change to oral tomorrow Continue the same (6) Leukocytosis: Code(s): D72.829 - Elevated white blood cell count, unspecified Status: Acute Assessment and Plan: Patient with mild leukocytosis seen in the 10-13 range. [place] related to above. (7) Atrial fibrillation: Code(s): I48.91 - Unspecified atrial fibrillation Status: Acute Assessment and Plan: Patient has had episodes of AFib with RVR. EKG captured this admission, new diagnosis. TSH wnl. She required treatment with IV metoprolol and IV diltiazem at times. Her oral metoprolol was resumed and dose was advanced. She was started on Eliquis for stroke prophylaxis. Heart rate remains well controlled. Continue to follow. (8) Generalized weakness: Code(s): R53.1 - Weakness Status: Acute Assessment and Plan: Patient with generalized weakness. Related to above. Continue PT and OT. (9) Difficulty in walking: Code(s): R26.2 - Difficulty in walking, not elsewhere classified Status: Acute Assessment and Plan: Patient with difficulty walking. Son believes this is related to gout. Consider OA vs diabetic neuropathy -Gout was diagnosed by the son. Dr. Tay gómez
[2023-04-18] MEDS: INSULIN ASPART (*BKC) 100 UNITS/ML SUB-Q (12:43)
[2023-04-18] MEDS: INSULIN HUMAN ISOPHAN/REGULAR 70/30 (*BKC) 100 UNITS/ML 10 UNITS SUB-Q ×2 (12:44→18:00)
[2023-04-18 14:00] VITALS: BP 133/58; PULSE 68; RESP 16; TEMP 36.9; O2SAT 94
[2023-04-18 16:56] LABS: Glucose Point of Care 126 mg/dl (65-105)
[2023-04-18] MEDS: ASPIRIN 81 MG CHEWABLE TABLET PO (17:59)
[2023-04-18 20:27] LABS: Glucose Point of Care 184 mg/dl (65-105)
[2023-04-18 21:39] VITALS: BP 154/65; PULSE 69; RESP 13; TEMP 36.6; O2SAT 96
[2023-04-18 21:43] VITALS: PULSE 69
[2023-04-19] VITALS (7 sets, daily range): BP systolic 151–192; BP diastolic 75–79; PULSE 71–84; RESP 13–22; TEMP 36.7–37.4; O2SAT 91–96
[2023-04-19] MEDS: VANCOMYCIN HCL 250 MG ORAL CAPSULE 500 MG PO ×3 (00:39→12:40)
[2023-04-19] MEDS: LABETALOL HCL INJ 100 MG/20 ML VIAL 10 MG IV PUSH (05:45)
[2023-04-19] MEDS: CEFEPIME 2 GM/NS 50 ML 2 GM/50 ML BAG IVPB ×2 (06:11→18:33)
[2023-04-19 07:46] LABS: Glucose Point of Care 175 mg/dl (65-105)
[2023-04-19] MEDS: APIXABAN 5 MG TABLET PO (08:39)
[2023-04-19] MEDS: ASPIRIN 81 MG CHEWABLE TABLET PO (08:39)
[2023-04-19] MEDS: CYANOCOBALAMIN 1,000 MCG TABLET 3000 MCG PO (08:39)
[2023-04-19] MEDS: SPIRONOLACTONE 25 MG TABLET PO (08:40)
[2023-04-19] MEDS: METOPROLOL TARTRATE 25 MG TABLET 125 MG PO (08:40)
[2023-04-19] MEDS: FUROSEMIDE 40 MG TABLET PO (08:40)
[2023-04-19] MEDS: PANTOPRAZOLE 40 MG TABLET PO (08:40)
[2023-04-19] MEDS: lisinopriL 20 MG TABLET PO (08:40)
[2023-04-19] MEDS: GABAPENTIN 100 MG CAPSULE PO ×2 (08:40→12:40)
[2023-04-19] MEDS: TOLNAFTATE 1% POWDER 45 GM BTL 1 APPLIC TOPICAL ×2 (08:41→20:56)
[2023-04-19 09:09] LABS: Hematocrit 36.9 % (37.0-47.0); Hemoglobin 11.5 g/dL (12.0-15.0); Mean Corpuscular HGB Conc 31.2 g/dl (32-36); Mean Corpuscular Hemoglobin 30.7 pg (26-34); Mean Corpuscular Volume 98.4 fl (80-100); Mean Platelet Volume 9.6 fl (7.4-10.4); Platelet Count Result 428 k/mm3 (150-375); Red Blood Count 3.75 M/mm3 (4.2-5.4); Red Cell Distribution Width 14.7 % (11.5-14.5)
[2023-04-19 09:18] LABS: Anion Gap 9 mmol/L (8-16); Blood Urea Nitrogen 17 mg/dL (7-17); Calcium 8.7 mg/dL (8.4-10.2); Carbon Dioxide 31 mmol/L (22-30); Chloride 100 mmol/L (98-107); Estimated CRCL calculation 53 ml/min; Estimated Glomerular Filt Rate > 60; Glucose 199 mg/dL (65-110); Magnesium 1.7 mg/dL (1.6-2.3); Potassium 3.6 mmol/L (3.4-5.0); Sodium 140 mmol/L (137-145)
[2023-04-19] MEDS: INSULIN HUMAN ISOPHAN/REGULAR 70/30 (*BKC) 100 UNITS/ML 10 UNITS SUB-Q ×2 (09:24→12:41)
--- NOTE | 2023-04-19 10:31 | PCNFU ---
Nutrition Follow-Up Complete: suboptimal po intake related to appetite as evidenced by charted intake Goal:PO intake 50% or greater for all meals Pt current nutrition is 2gm Na/ Diabetic consistent carb. Nutrition recommendation: continue with current plan of care Last recorded weight is 80.9 kg. Bowel Motility: +BM 04/18 Labs Reviewed: Hgb:10.8, HCT:34.5, BUN:24, Glu:175 Meds Noted: Eliquis, lasix, novolog Skin: no skin issues noted Additional Notes: Pt continues on a low sodium, diabetic diet. Intake improved to 50-100% of meals. Continue to encourage good po intake of meals. Monitor intake, wt, labs. Follow up in 5 days.
--- NOTE | 2023-04-19 11:36 | PCPTNOTE ---
The patient treatment was not able to be completed due to patient's lack of participation today. Patient A&O x 1. Reported to RN that patient demonstrates a change in demeanor and is not following instructions for exercise of mobility. Will plan to continue treatment per plan of care.
--- NOTE | 2023-04-19 12:01 | PCOTNOTE ---
Patient unable to be seen at this time. Patient is unable to follow commands for directions for participation, Patient seemed to have had a change, RN notified and aware. Will check back at a later date.
[2023-04-19 12:08] LABS: Glucose Point of Care 311 mg/dl (65-105)
[2023-04-19] MEDS: INSULIN ASPART (*BKC) 100 UNITS/ML SUB-Q ×2 (12:42→21:00)
--- NOTE | 2023-04-19 14:37 | PM.IMPN ---
Progress Note: A&P Assessment and Plan (1) Acute hypoxic respiratory failure: Code(s): J96.01 - Acute respiratory failure with hypoxia Status: Acute Assessment and Plan: Secondary to acute on chronic diastolic CHF - BNP on admission 1500 w/ pulmonary edema and LE swelling. LE dopplers neg for DVT. Echo demonstrating EF 65-70%, Improving, continue current treatment monitor closely. (2) C. difficile colitis: Code(s): A04.72 - Enterocolitis due to Clostridium difficile, not specified as recurrent Status: Acute Assessment and Plan: Patient with extensive number of stools 04/16 but improving now. Continue to monitor stool output. Continue current vancomycin dosing. Improving, continue current treatment (3) Acute CHF (congestive heart failure): Qualifiers: Heart failure type: unspecified Qualified Code(s): I50.9 - Heart failure, unspecified Code(s): I50.9 - Heart failure, unspecified Status: Acute Assessment and Plan: Acute on chronic diastolic CHF Patient was treated with a few doses of IV Lasix but has been on oral Lasix since 04/08/2023. Clinically appears euvolemic. Continue metoprolol and spironolactone. Renal function stable Increase activity as tolerated, continue current treatment (4) Elevated troponin: Code(s): R79.89 - Other specified abnormal findings of blood chemistry Status: Acute Assessment and Plan: Patient typically becomes anxious and has SOB with chest pain Troponins are flat. Lexiscan done on 04/[address] segment depression but nuclear imaes showing no definitive ischemia or infarct with normal LVEF 70% The patient should follow up with cardiology as outpatient. The son prefers cardiology from [facility]. Pt already on metoprolol. Pt and son elected not to use aspirin due to high uric acid level and not to use statin given she has issues already with leg pain. Continue medical management (5) Hospital acquired PNA: Code(s): J18.9 - Pneumonia, unspecified organism; Y95 - Nosocomial condition Status: Acute Assessment and Plan: Improving, repeat chest x-ray in morning. (6) Leukocytosis: Code(s): D72.829 - Elevated white blood cell count, unspecified Status: Acute Assessment and Plan: Patient with mild leukocytosis seen in the 10-13 range. [place] related to above. (7) Atrial fibrillation: Code(s): I48.91 - Unspecified atrial fibrillation Status: Acute Assessment and Plan: Stable on current medication, will continue current treatment.. (8) Generalized weakness: Code(s): R53.1 - Weakness Status: Acute Assessment and Plan: Patient with generalized weakness. Related to above. Continue PT and OT. (9) Difficulty in walking: Code(s): R26.2 - Difficulty in walking, not elsewhere classified Status: Acute Assessment and Plan: Continue physical therapy (10) Insulin dependent type 2 diabetes mellitus: Code(s): E11.9 - Type 2 diabetes mellitus without complications; Z79.4 - [facility] (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 of insulin Status: Acute Assessment and Plan: Stable on current medication, will continue current treatment. (11) Hypertension: Code(s): I10 - Essential (primary) hypertension Status: Chronic Assessment and Plan: Stable on current medication, will continue current treatment. Plan # left kidney cystic mass - appears benign. serial monitoring outpatient. DVT prophylaxis- Eliquis Code status - full Disposition - Can be discharged to SNF when bed available Subjective Date/time seen: 04/19/23 14:37 Interval history: Patient was seen during the morning rounds today. Patient is feeling slightly better Decreased shortness of breath or chest pain. No abdominal pain, nausea, no vomiting. Review of Systems Review of Systems: leg and foot swelling
[2023-04-19 18:05] LABS: Glucose Point of Care 176 mg/dl (65-105)
[2023-04-19] MEDS: SODIUM CHLORIDE 0.9% IV 1,000 ML 80 ML IV CONT (18:33)
[2023-04-19] MEDS: VANCOMYCIN ORAL 500 MG/10 ML SYRUP PO (18:52)
[2023-04-19 21:07] LABS: Glucose Point of Care 208 mg/dl (65-105)
[2023-04-20] VITALS (8 sets, daily range): BP systolic 152–163; BP diastolic 58–94; PULSE 77–105; RESP 17–20; TEMP 36.4–37.2; O2SAT 94–100
[2023-04-20] MEDS: VANCOMYCIN ORAL 500 MG/10 ML SYRUP PO ×5 (00:19→23:35)
[2023-04-20] MEDS: CEFEPIME 2 GM/NS 50 ML 2 GM/50 ML BAG IVPB (05:54)
[2023-04-20 06:24] LABS: Basophils Absolute Auto 0.1 K/mm3 (0.0-0.1); Basophils Percent Auto 0.6 % (0.2-1.2); Hemoglobin 11.2 g/dL (12.0-15.0); Immature Granulocyte Absolute 0.47 K/mm3 (0.00-0.031); Immature Granulocyte Percent A 2.3 % (0-0.5); Lymphocytes Absolute Auto 1.25 K/mm3 (0.9-3.2); Lymphocytes Percent Auto 6.1 % (18.3-44.2); Mean Corpuscular HGB Conc 31.1 g/dl (32-36); Mean Corpuscular Hemoglobin 30.4 pg (26-34); Mean Corpuscular Volume 97.6 fl (80-100); Mean Platelet Volume 9.5 fl (7.4-10.4); Monocytes Absolute Auto 2.1 K/mm3 (0.1-0.6); Neutrophils Absolute Auto 16.6 K/mm3 (1.3-6.7); Platelet Count Result 386 k/mm3 (150-375); Red Blood Count 3.69 M/mm3 (4.2-5.4); Red Cell Distribution Width 15.1 % (11.5-14.5); White Blood Count 20.5 K/mm3 (4.5-10.0)
[2023-04-20 06:33] LABS: Alanine Aminotransferase 16 U/L (6-35); Albumin Level 3.3 g/dL (3.5-5.1); Alkaline Phosphatase 86 U/L (38-126); Anion Gap 8 mmol/L (8-16); Aspartate Amino Transferase 17 U/L (14-36); Blood Urea Nitrogen 20 mg/dL (7-17); Calcium 8.5 mg/dL (8.4-10.2); Carbon Dioxide 32 mmol/L (22-30); Chloride 101 mmol/L (98-107); Estimated CRCL calculation 47 ml/min; Estimated Glomerular Filt Rate > 60; Glucose 266 mg/dL (65-110); Magnesium 1.6 mg/dL (1.6-2.3); Potassium 3.8 mmol/L (3.4-5.0); Sodium 141 mmol/L (137-145)
[2023-04-20 06:34] LABS: Ammonia < 9 umol/L (9-30)
--- NOTE | 2023-04-20 08:11 | PM.IMPN ---
Progress Note: A&P Assessment and Plan (1) Acute hypoxic respiratory failure: Code(s): J96.01 - Acute respiratory failure with hypoxia Status: Acute Assessment and Plan: Secondary to acute on chronic diastolic CHF - BNP on admission 1500 w/ pulmonary edema and LE swelling. LE dopplers neg for DVT. Echo demonstrating EF 65-70%, Improving, continue current treatment monitor closely. (2) C. difficile colitis: Code(s): A04.72 - Enterocolitis due to Clostridium difficile, not specified as recurrent Status: Acute Assessment and Plan: Patient with extensive number of stools 04/16 but improving now. Continue to monitor stool output. Continue current vancomycin dosing. Improving, continue current treatment (3) Acute CHF (congestive heart failure): Qualifiers: Heart failure type: unspecified Qualified Code(s): I50.9 - Heart failure, unspecified Code(s): I50.9 - Heart failure, unspecified Status: Acute Assessment and Plan: Acute on chronic diastolic CHF Patient was treated with a few doses of IV Lasix but has been on oral Lasix since 04/08/2023. Clinically appears euvolemic. Continue metoprolol and spironolactone. Renal function stable Increase activity as tolerated, continue current treatment (4) Elevated troponin: Code(s): R79.89 - Other specified abnormal findings of blood chemistry Status: Acute Assessment and Plan: Patient typically becomes anxious and has SOB with chest pain Troponins are flat. Lexiscan done on 04/[address] segment depression but nuclear imaes showing no definitive ischemia or infarct with normal LVEF 70% The patient should follow up with cardiology as outpatient. The son prefers cardiology from [facility]. Pt already on metoprolol. Pt and son elected not to use aspirin due to high uric acid level and not to use statin given she has issues already with leg pain. Continue medical management (5) Hospital acquired PNA: Code(s): J18.9 - Pneumonia, unspecified organism; Y95 - Nosocomial condition Status: Acute Assessment and Plan: Improving, repeat chest x-ray in morning. (6) Leukocytosis: Code(s): D72.829 - Elevated white blood cell count, unspecified Status: Acute Assessment and Plan: Patient with mild leukocytosis seen in the 10-13 range. [place] related to above. (7) Atrial fibrillation: Code(s): I48.91 - Unspecified atrial fibrillation Status: Acute Assessment and Plan: Stable on current medication, will continue current treatment.. (8) Generalized weakness: Code(s): R53.1 - Weakness Status: Acute Assessment and Plan: Patient with generalized weakness. Related to above. Continue PT and OT. (9) Difficulty in walking: Code(s): R26.2 - Difficulty in walking, not elsewhere classified Status: Acute Assessment and Plan: Continue physical therapy (10) Insulin dependent type 2 diabetes mellitus: Code(s): E11.9 - Type 2 diabetes mellitus without complications; Z79.4 - [facility] (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 of insulin Status: Acute Assessment and Plan: Stable on current medication, will continue current treatment. (11) Hypertension: Code(s): I10 - Essential (primary) hypertension Status: Chronic Assessment and Plan: Stable on current medication, will continue current treatment. Plan # left kidney cystic mass - appears benign. serial monitoring outpatient. Family meeting. Case discussed with in detail. Agree with current plan of care and treatment. As WBC is increasing in spite of being on the antibiotic. Will repeat cultures and add Levaquin. DVT prophylaxis- Eliquis Code status - full Disposition - Can be discharged to SNF when bed available Subjective Date/time seen: 04/20/23 08:11 Interval history: Patient was seen during the morning round
[2023-04-20 08:41] LABS: Glucose Point of Care 273 mg/dl (65-105)
[2023-04-20] MEDS: ASPIRIN 81 MG CHEWABLE TABLET PO (09:07)
[2023-04-20] MEDS: SODIUM CHLORIDE 0.9% IV 1,000 ML 80 ML IV CONT ×2 (09:07→19:44)
[2023-04-20] MEDS: INSULIN HUMAN ISOPHAN/REGULAR 70/30 (*BKC) 100 UNITS/ML 10 UNITS SUB-Q ×3 (09:09→17:11)
[2023-04-20] MEDS: PANTOPRAZOLE SODIUM IV 40 MG VIAL IV PUSH (09:11)
[2023-04-20] MEDS: levoFLOXacin 500 MG/D5W 100 ML 500 MG/100 ML BAG 100 MG IVPB (09:19)
[2023-04-20] MEDS: INSULIN ASPART (*BKC) 100 UNITS/ML SUB-Q ×3 (09:24→20:52)
[2023-04-20] MEDS: TOLNAFTATE 1% POWDER 45 GM BTL 1 APPLIC TOPICAL ×2 (11:03→20:55)
[2023-04-20] MEDS: MEROPENEM 1 GM/NS 100 ML BAG IVPB ×2 (11:06→21:13)
[2023-04-20] MEDS: FEBUXOSTAT 40 MG TABLET PO (11:12)
[2023-04-20] MEDS: methylPREDNISolone SOD SUCC 125 MG VIAL IV PUSH (11:20)
[2023-04-20 11:25] LABS: Uric Acid 7.3 mg/dL (2.5-7.5)
[2023-04-20 11:48] LABS: Glucose Point of Care 303 mg/dl (65-105)
--- NOTE | 2023-04-20 13:45 | PCOTNOTE ---
The patient treatment was not able to be completed patient getting an IV placed. Will plan to continue treatment per plan of care.
[2023-04-20] MEDS: DICLOFENAC SODIUM 1% 100 GM GEL (*BKC) 1 APPLIC TOPICAL ×3 (15:52→20:55)
[2023-04-20 16:19] LABS: Glucose Point of Care 191 mg/dl (65-105)
[2023-04-20] MEDS: SACCHAROMYCES BOULARDII 250 MG CAPSULE PO (17:09)
[2023-04-20] MEDS: METOPROLOL TARTRATE 25 MG TABLET 125 MG PO (20:55)
[2023-04-20] MEDS: APIXABAN 5 MG TABLET PO (20:55)
[2023-04-20 21:13] LABS: Glucose Point of Care 320 mg/dl (65-105)
[2023-04-21] MEDS: VANCOMYCIN ORAL 500 MG/10 ML SYRUP PO ×4 (05:37→23:11)
[2023-04-21 06:00] VITALS: BP 167/72; PULSE 76; RESP 18; TEMP 36.3; O2SAT 93
[2023-04-21 07:08] LABS: Hematocrit 33.8 % (37.0-47.0); Hemoglobin 10.5 g/dL (12.0-15.0); Mean Corpuscular HGB Conc 31.1 g/dl (32-36); Mean Corpuscular Hemoglobin 30.5 pg (26-34); Mean Corpuscular Volume 98.3 fl (80-100); Mean Platelet Volume 10.1 fl (7.4-10.4); Platelet Count Result 375 k/mm3 (150-375); Red Blood Count 3.44 M/mm3 (4.2-5.4); Red Cell Distribution Width 14.7 % (11.5-14.5); White Blood Count 21.2 K/mm3 (4.5-10.0)
[2023-04-21 07:21] LABS: Alanine Aminotransferase 15 U/L (6-35); Albumin Level 3.1 g/dL (3.5-5.1); Alkaline Phosphatase 86 U/L (38-126); Anion Gap 6 mmol/L (8-16); Aspartate Amino Transferase 20 U/L (14-36); Bilirubin,Total 0.7 mg/dL (0.2-1.3); Blood Urea Nitrogen 22 mg/dL (7-17); Calcium 8.9 mg/dL (8.4-10.2); Carbon Dioxide 30 mmol/L (22-30); Chloride 104 mmol/L (98-107); Estimated CRCL calculation 47 ml/min; Estimated Glomerular Filt Rate > 60; Glucose 301 mg/dL (65-110); Potassium 4.2 mmol/L (3.4-5.0); Sodium 140 mmol/L (137-145)
[2023-04-21 07:49] LABS: Glucose Point of Care 299 mg/dl (65-105)
[2023-04-21 08:41] VITALS: PULSE 60; O2SAT 96
[2023-04-21] MEDS: lisinopriL 20 MG TABLET PO (08:41)
[2023-04-21] MEDS: ASPIRIN 81 MG CHEWABLE TABLET PO (08:41)
[2023-04-21] MEDS: SACCHAROMYCES BOULARDII 250 MG CAPSULE PO ×2 (08:41→17:47)
[2023-04-21] MEDS: METOPROLOL TARTRATE 25 MG TABLET 125 MG PO ×2 (08:41→20:33)
[2023-04-21] MEDS: FEBUXOSTAT 40 MG TABLET PO (08:41)
[2023-04-21] MEDS: CYANOCOBALAMIN 1,000 MCG TABLET 3000 MCG PO (08:41)
[2023-04-21] MEDS: SPIRONOLACTONE 25 MG TABLET PO (08:41)
[2023-04-21] MEDS: APIXABAN 5 MG TABLET PO ×2 (08:41→20:34)
[2023-04-21] MEDS: PANTOPRAZOLE SODIUM IV 40 MG VIAL IV PUSH (08:43)
[2023-04-21] MEDS: DICLOFENAC SODIUM 1% 100 GM GEL (*BKC) 1 APPLIC TOPICAL ×4 (08:52→20:35)
[2023-04-21] MEDS: levoFLOXacin 250 MG/D5W 50 ML 250 MG/50 ML BAG 50 MG IVPB (08:52)
[2023-04-21] MEDS: INSULIN HUMAN ISOPHAN/REGULAR 70/30 (*BKC) 100 UNITS/ML 10 UNITS SUB-Q ×3 (08:59→17:47)
[2023-04-21] MEDS: INSULIN ASPART (*BKC) 100 UNITS/ML SUB-Q ×3 (09:01→20:42)
[2023-04-21] MEDS: TOLNAFTATE 1% POWDER 45 GM BTL 1 APPLIC TOPICAL ×2 (09:04→20:39)
[2023-04-21 09:07] VITALS: PULSE 72; RESP 18; O2SAT 97
[2023-04-21] MEDS: SODIUM CHLORIDE 0.9% IV 1,000 ML 80 ML IV CONT (09:14)
[2023-04-21] MEDS: MEROPENEM 1 GM/NS 100 ML BAG IVPB ×2 (09:59→21:10)
--- NOTE | 2023-04-21 09:59 | PM.IMPN ---
Progress Note: A&P Assessment and Plan (1) Acute hypoxic respiratory failure: Code(s): J96.01 - Acute respiratory failure with hypoxia Status: Acute Assessment and Plan: Secondary to acute on chronic diastolic CHF - BNP on admission 1500 w/ pulmonary edema and LE swelling. LE dopplers neg for DVT. Echo demonstrating EF 65-70%, Improving, continue current treatment monitor closely. (2) C. difficile colitis: Code(s): A04.72 - Enterocolitis due to Clostridium difficile, not specified as recurrent Status: Acute Assessment and Plan: Patient with extensive number of stools 04/16 but improving now. Continue to monitor stool output. Continue current vancomycin dosing. Improving, continue current treatment (3) Acute CHF (congestive heart failure): Qualifiers: Heart failure type: unspecified Qualified Code(s): I50.9 - Heart failure, unspecified Code(s): I50.9 - Heart failure, unspecified Status: Acute Assessment and Plan: Acute on chronic diastolic CHF Patient was treated with a few doses of IV Lasix but has been on oral Lasix since 04/08/2023. Clinically appears euvolemic. Continue metoprolol and spironolactone. Renal function stable Increase activity as tolerated, continue current treatment (4) Elevated troponin: Code(s): R79.89 - Other specified abnormal findings of blood chemistry Status: Acute Assessment and Plan: Patient typically becomes anxious and has SOB with chest pain Troponins are flat. Lexiscan done on 04/[address] segment depression but nuclear imaes showing no definitive ischemia or infarct with normal LVEF 70% The patient should follow up with cardiology as outpatient. The son prefers cardiology from [facility]. Pt already on metoprolol. Pt and son elected not to use aspirin due to high uric acid level and not to use statin given she has issues already with leg pain. Continue medical management (5) Hospital acquired PNA: Code(s): J18.9 - Pneumonia, unspecified organism; Y95 - Nosocomial condition Status: Acute Assessment and Plan: Improving, repeat chest x-ray in morning. (6) Leukocytosis: Code(s): D72.829 - Elevated white blood cell count, unspecified Status: Acute Assessment and Plan: Continue antibiotics and monitor closely. (7) Atrial fibrillation: Code(s): I48.91 - Unspecified atrial fibrillation Status: Acute Assessment and Plan: Stable on current medication, will continue current treatment.. (8) Generalized weakness: Code(s): R53.1 - Weakness Status: Acute Assessment and Plan: Patient with generalized weakness. Related to above. Continue PT and OT. (9) Difficulty in walking: Code(s): R26.2 - Difficulty in walking, not elsewhere classified Status: Acute Assessment and Plan: Continue physical therapy (10) Insulin dependent type 2 diabetes mellitus: Code(s): E11.9 - Type 2 diabetes mellitus without complications; Z79.4 - long-term (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 of insulin Status: Acute Assessment and Plan: Stable on current medication, will continue current treatment. (11) Hypertension: Code(s): I10 - Essential (primary) hypertension Status: Chronic Assessment and Plan: Stable on current medication, will continue current treatment. Plan # left kidney cystic mass - appears benign. serial monitoring outpatient. Family meeting. Case discussed with in detail. Agree with current plan of care and treatment. As WBC is increasing in spite of being on the antibiotic. Will repeat cultures and add Levaquin. DVT prophylaxis- Eliquis Code status - full Disposition - Can be discharged to SNF when bed available Subjective Date/time seen: 04/21/23 09:59 Interval history: Patient was seen during the morning rounds today. Patient is feeling slightly be
[2023-04-21 11:40] LABS: Glucose Point of Care 327 mg/dl (65-105)
[2023-04-21 14:00] VITALS: BP 151/64; PULSE 63; RESP 20; TEMP 36.2; O2SAT 98
[2023-04-21 16:47] LABS: Glucose Point of Care 192 mg/dl (65-105)
--- NOTE | 2023-04-21 17:12 | PC.NURSE ---
Pt has not voided yet today, Bladder scan showing 298mls with more shown on the screen although unable to get accurate reading due to patient crying and unable to tolerate bladder scan. MD notified, new order to place Mcallister Catheter.
--- NOTE | 2023-04-21 18:45 | PC.NURSE ---
Zarco catheter placed with 100ml urine output. This RN consulted fellow RN's on the floor. Zarco catheter was advanced and placement checked with no more output. This RN then notified the provider. Provider okay with output at this time would like zarco to remain in place and monitor overnight.
[2023-04-21 20:33] VITALS: PULSE 81
[2023-04-21 20:52] LABS: Glucose Point of Care 277 mg/dl (65-105)
[2023-04-21 22:00] VITALS: BP 157/59; PULSE 71; RESP 16; TEMP 35.8; O2SAT 96
[2023-04-21] MEDS: ACETAMINOPHEN 500 MG TABLET 1000 MG PO (22:04)
[2023-04-22] VITALS (7 sets, daily range): BP systolic 180–194; BP diastolic 70–102; PULSE 60–68; RESP 14–18; TEMP 36.3–36.6; O2SAT 94–99
[2023-04-22] MEDS: VANCOMYCIN ORAL 500 MG/10 ML SYRUP PO ×3 (05:01→18:52)
[2023-04-22 06:58] LABS: Hematocrit 34.5 % (37.0-47.0); Hemoglobin 10.1 g/dL (12.0-15.0); Mean Corpuscular HGB Conc 29.3 g/dl (32-36); Mean Corpuscular Hemoglobin 30.1 pg (26-34); Mean Platelet Volume 9.8 fl (7.4-10.4); Platelet Count Result 386 k/mm3 (150-375); Red Blood Count 3.35 M/mm3 (4.2-5.4); Red Cell Distribution Width 15.1 % (11.5-14.5); White Blood Count 17.2 K/mm3 (4.5-10.0)
[2023-04-22 07:17] LABS: Alanine Aminotransferase 14 U/L (6-35); Albumin Level 2.9 g/dL (3.5-5.1); Alkaline Phosphatase 72 U/L (38-126); Anion Gap 5 mmol/L (8-16); Aspartate Amino Transferase 21 U/L (14-36); Bilirubin,Total 0.5 mg/dL (0.2-1.3); Blood Urea Nitrogen 31 mg/dL (7-17); Calcium 8.6 mg/dL (8.4-10.2); Carbon Dioxide 29 mmol/L (22-30); Chloride 105 mmol/L (98-107); Estimated CRCL calculation 47 ml/min; Estimated Glomerular Filt Rate > 60; Glucose 161 mg/dL (65-110); Potassium 4.2 mmol/L (3.4-5.0); Sodium 139 mmol/L (137-145); Uric Acid 4.2 mg/dL (2.5-7.5)
[2023-04-22 07:48] LABS: Glucose Point of Care 164 mg/dl (65-105)
[2023-04-22] MEDS: SPIRONOLACTONE 25 MG TABLET PO (08:22)
[2023-04-22] MEDS: lisinopriL 20 MG TABLET PO (08:22)
[2023-04-22] MEDS: FEBUXOSTAT 40 MG TABLET PO (08:22)
[2023-04-22] MEDS: ACETAMINOPHEN 500 MG TABLET 1000 MG PO ×2 (08:22→21:18)
[2023-04-22] MEDS: ASPIRIN 81 MG CHEWABLE TABLET PO (08:22)
[2023-04-22] MEDS: SACCHAROMYCES BOULARDII 250 MG CAPSULE PO ×2 (08:22→18:51)
[2023-04-22] MEDS: CYANOCOBALAMIN 1,000 MCG TABLET 3000 MCG PO (08:22)
[2023-04-22] MEDS: METOPROLOL TARTRATE 25 MG TABLET 125 MG PO ×2 (08:22→21:18)
[2023-04-22] MEDS: APIXABAN 5 MG TABLET PO (08:22)
[2023-04-22] MEDS: DICLOFENAC SODIUM 1% 100 GM GEL (*BKC) 1 APPLIC TOPICAL ×3 (08:23→18:51)
[2023-04-22] MEDS: levoFLOXacin 250 MG/D5W 50 ML 250 MG/50 ML BAG 50 MG IVPB (08:25)
[2023-04-22] MEDS: TOLNAFTATE 1% POWDER 45 GM BTL 1 APPLIC TOPICAL ×2 (08:26→21:26)
[2023-04-22] MEDS: PANTOPRAZOLE SODIUM IV 40 MG VIAL IV PUSH (08:27)
[2023-04-22] MEDS: MEROPENEM 1 GM/NS 100 ML BAG IVPB ×2 (10:25→21:36)
[2023-04-22 11:41] LABS: Glucose Point of Care 317 mg/dl (65-105)
[2023-04-22 12:42] LABS: Folic Acid 6.2 ng/mL (2.76->20); Vitamin B12 > 1000.0 pg/mL (239-931)
--- NOTE | 2023-04-22 13:28 | WPDURCON ---
Assessment and Plan Assessment and plan (1) Renal cyst, left: Code(s): N28.1 - Cyst of kidney, acquired Status: Acute Assessment and Plan: Although this cystic lesion has increased in size over the past 3 and half years it is benign. Does not require any intervention at this time. If become symptomatic could possibly benefit from percutaneous drainage and ablation (2) Urinary retention: Code(s): R33.9 - Retention of urine, unspecified Status: Acute Assessment and Plan: Patient can have a voiding trial when becomes more medically stable. Would check postvoid residuals at that time. Urology Consult Note HPI Date Seen: 04/22/23 Time Seen: 13:28 Requesting Physician: Charles Shen MD Primary Care Provider: Roel Haynes MD Consult Narrative Reason for consult: Left renal cystic mass Narrative: Constanza Ventura is a 82 year old female with multiple medical issues who was admitted on the 02 of April with shortness of breath and bilateral lower extremity swelling. She subsequently developed hospital-acquired pneumonia and C diff. we are asked to see here given a 13 cm left renal cystic mass with some septations. She actually had a CT back in 2019 at which point I measured 9 cm. It appears to be more benign in nature and his simply increased in size. She is asymptomatic from it. She also states that she has had some difficulty voiding recently. She has nocturia times 2-3. Denies incontinence. She has a indwelling Mcallister currently but is unclear what her residual as when it was placed. 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, right eye, intermediate dry stage Overactive bladder Surgical History Surgical History History of cholecystectomy History of repair of rotator cuff Family History Family History Father Asthma Cerebrovascular accident Family history of diabetes mellitus in first degree relative Sibling Family history of diabetes mellitus in first degree relative Family history of malignant neoplasm of urinary bladder Mother Family history of heart disease in male family member before age 55 Other Family history of arthritis Hypertension Social History Social History Social History: Surrogate medical decision maker: Julio Ventura, son. Code status: Full code. Smoking packs per day: 1 Smoking cigarettes per day: 20.0 Years smoked: 15 Smoking pack-years: 15.00 Smoking status: Never smoker Tobacco type: cigarettes Second hand tobacco smoke exposure: Yes Alcohol intake: never Substance use: never Substance use type: does not use Do You Feel Safe in your Home?: Yes Lack of Transportation: No Lack of Food: Never True Current Housing: I Have Housing Concerned About Future Housing: No Difficulty Paying Gas/Electric Bills: No Difficulty Paying for Meds: No Currently Unemployed: No Education: High School Diploma/GED Difficulty w/ Childcare or Family Care: No Living arrangements: with family Additional living arrangements comments: Lives in [place]. Son Julio stays with her. Occupation/Education: retired Spiritual care concerns: No Meds Home Medications and Allergies Home Medications Medication Instru
[2023-04-22] MEDS: INSULIN ASPART (*BKC) 100 UNITS/ML SUB-Q (14:26)
[2023-04-22] MEDS: INSULIN HUMAN ISOPHAN/REGULAR 70/30 (*BKC) 100 UNITS/ML 10 UNITS SUB-Q (14:29)
[2023-04-22] MEDS: LABETALOL HCL INJ 100 MG/20 ML VIAL 10 MG IV PUSH (14:38)
--- NOTE | 2023-04-22 15:00 | PC.NURSE ---
pt's nose started bleeding. MD and nurse discharge planner aware.
[2023-04-22] MEDS: hydrALAZINE HCL 20 MG/ML VIAL 10 MG IV PUSH (16:00)
[2023-04-22] MEDS: cloNIDine 0.2 MG/24 HR PATCH 1 PATCH TRANSDERM (17:30)
[2023-04-22] MEDS: LORazepam INJ (*CRX) 2 MG/ML VIAL 0.5 MG IV PUSH (18:49)
[2023-04-22] MEDS: minoxidiL 2.5 MG TABLET 5 MG PO (18:53)
[2023-04-22 19:50] LABS: Hemoglobin 10.5 g/dL (12.0-15.0)
[2023-04-22 19:50] LABS: Glucose Point of Care 208 mg/dl (65-105)
--- NOTE | 2023-04-22 20:56 | PM.IMPN ---
Progress Note: A&P Assessment and Plan (1) Acute hypoxic respiratory failure: Code(s): J96.01 - Acute respiratory failure with hypoxia Status: Acute Assessment and Plan: Secondary to acute on chronic diastolic CHF - BNP on admission 1500 w/ pulmonary edema and LE swelling. LE dopplers neg for DVT. Echo demonstrating EF 65-70%, Improving, continue current treatment monitor closely. (2) C. difficile colitis: Code(s): A04.72 - Enterocolitis due to Clostridium difficile, not specified as recurrent Status: Acute Assessment and Plan: Patient with extensive number of stools 04/16 but improving now. Continue to monitor stool output. Continue current vancomycin dosing. Improving, continue current treatment (3) Acute CHF (congestive heart failure): Qualifiers: Heart failure type: unspecified Qualified Code(s): I50.9 - Heart failure, unspecified Code(s): I50.9 - Heart failure, unspecified Status: Acute Assessment and Plan: Acute on chronic diastolic CHF Patient was treated with a few doses of IV Lasix but has been on oral Lasix since 04/08/2023. Clinically appears euvolemic. Continue metoprolol and spironolactone. Renal function stable Increase activity as tolerated, continue current treatment (4) Elevated troponin: Code(s): R79.89 - Other specified abnormal findings of blood chemistry Status: Acute Assessment and Plan: Patient typically becomes anxious and has SOB with chest pain Troponins are flat. Lexiscan done on 04/[address] segment depression but nuclear imaes showing no definitive ischemia or infarct with normal LVEF 70% The patient should follow up with cardiology as outpatient. The son prefers cardiology from [facility]. Pt already on metoprolol. Pt and son elected not to use aspirin due to high uric acid level and not to use statin given she has issues already with leg pain. Continue medical management (5) Hospital acquired PNA: Code(s): J18.9 - Pneumonia, unspecified organism; Y95 - Nosocomial condition Status: Acute Assessment and Plan: Improving, repeat chest x-ray on 03/31/2023 is stable (6) Leukocytosis: Code(s): D72.829 - Elevated white blood cell count, unspecified Status: Acute Assessment and Plan: Continue antibiotics and monitor closely. Leukocytosis slowly improving ... 21.2-17.2 (7) Atrial fibrillation: Code(s): I48.91 - Unspecified atrial fibrillation Status: Acute Assessment and Plan: Stable on current medication, will continue current treatment. Hold off on aspirin and Eliquis secondary to nasal bleeding Get Cardiology consult for evaluation (8) Generalized weakness: Code(s): R53.1 - Weakness Status: Acute Assessment and Plan: Patient with generalized weakness. Related to above. Continue PT and OT. (9) Difficulty in walking: Code(s): R26.2 - Difficulty in walking, not elsewhere classified Status: Acute Assessment and Plan: Continue physical therapy (10) Insulin dependent type 2 diabetes mellitus: Code(s): E11.9 - Type 2 diabetes mellitus without complications; Z79.4 - [employer]aker continuous churn (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 of insulin Status: Acute Assessment and Plan: Stable on current medication, will continue current treatment. (11) Hypertension: Code(s): I10 - Essential (primary) hypertension Status: Chronic Assessment and Plan: Patient with elevated blood pressure, multiple meds given to control blood pressure. Please see the note below: Plan # left kidney cystic mass - appears benign. serial monitoring outpatient - urology consult given for evaluation As per previous provider(s): Family meeting. Case discussed with in detail. Agree with current plan of care and treatment. As WBC is increasing in spite of being on the antibiotic. Will repeat cultures and add Lev
[2023-04-22 22:28] LABS: Glucose Point of Care 176 mg/dl (65-105)
[2023-04-23] VITALS (13 sets, daily range): BP systolic 145–193; BP diastolic 51–82; PULSE 65–76; RESP 18–22; TEMP 36.4–36.6; O2SAT 92–97
[2023-04-23] MEDS: VANCOMYCIN HCL 250 MG ORAL CAPSULE 500 MG PO ×5 (00:45→23:45)
[2023-04-23] MEDS: LABETALOL HCL INJ 100 MG/20 ML VIAL 10 MG IV PUSH (06:02)
[2023-04-23 06:25] LABS: Basophils Percent Auto 0.4 % (0.2-1.2); Eosinophils Absolute Auto 0.1 K/mm3 (0-0.3); Eosinophils Percent Auto 1.2 % (0-4.4); Hematocrit 34.1 % (37.0-47.0); Hemoglobin 10.6 g/dL (12.0-15.0); Immature Granulocyte Absolute 0.13 K/mm3 (0.00-0.031); Immature Granulocyte Percent A 1.3 % (0-0.5); Lymphocytes Absolute Auto 1.58 K/mm3 (0.9-3.2); Lymphocytes Percent Auto 15.2 % (18.3-44.2); Mean Corpuscular HGB Conc 31.1 g/dl (32-36); Mean Corpuscular Hemoglobin 30.3 pg (26-34); Mean Corpuscular Volume 97.4 fl (80-100); Mean Platelet Volume 9.7 fl (7.4-10.4); Monocytes Absolute Auto 0.8 K/mm3 (0.1-0.6); Monocytes Percent Auto 7.4 % (2.6-8.5); Neutrophils Absolute Auto 7.7 K/mm3 (1.3-6.7); Neutrophils Percent Auto 74.5 % (45.5-73.1); Platelet Count Result 391 k/mm3 (150-375); Red Cell Distribution Width 15.1 % (11.5-14.5); White Blood Count 10.4 K/mm3 (4.5-10.0)
[2023-04-23 06:48] LABS: Anion Gap 2 mmol/L (8-16); Blood Urea Nitrogen 23 mg/dL (7-17); Calcium 8.9 mg/dL (8.4-10.2); Carbon Dioxide 32 mmol/L (22-30); Chloride 105 mmol/L (98-107); Estimated CRCL calculation 61 ml/min; Estimated Glomerular Filt Rate > 60; Glucose 161 mg/dL (65-110); Magnesium 1.9 mg/dL (1.6-2.3); Phosphorus 2.4 mg/dL (2.5-4.5); Potassium 4.2 mmol/L (3.4-5.0); Sodium 139 mmol/L (137-145); Uric Acid 3.3 mg/dL (2.5-7.5)
[2023-04-23 07:52] LABS: Glucose Point of Care 173 mg/dl (65-105)
[2023-04-23] MEDS: METOPROLOL TARTRATE 25 MG TABLET 125 MG PO ×2 (08:18→22:00)
[2023-04-23] MEDS: ACETAMINOPHEN 500 MG TABLET 1000 MG PO ×2 (08:19→16:24)
[2023-04-23] MEDS: CYANOCOBALAMIN 1,000 MCG TABLET 3000 MCG PO (08:19)
[2023-04-23] MEDS: lisinopriL 20 MG TABLET PO ×2 (08:19→12:48)
[2023-04-23] MEDS: SPIRONOLACTONE 25 MG TABLET PO (08:19)
[2023-04-23] MEDS: PANTOPRAZOLE SODIUM IV 40 MG VIAL IV PUSH (08:20)
[2023-04-23] MEDS: FEBUXOSTAT 40 MG TABLET PO (08:20)
[2023-04-23] MEDS: SACCHAROMYCES BOULARDII 250 MG CAPSULE PO ×2 (08:20→16:25)
[2023-04-23] MEDS: DICLOFENAC SODIUM 1% 100 GM GEL (*BKC) 1 APPLIC TOPICAL ×4 (08:20→22:07)
[2023-04-23] MEDS: TOLNAFTATE 1% POWDER 45 GM BTL 1 APPLIC TOPICAL ×2 (08:20→22:07)
[2023-04-23] MEDS: levoFLOXacin 250 MG/D5W 50 ML 250 MG/50 ML BAG 50 MG IVPB (08:21)
[2023-04-23] MEDS: hydrALAZINE HCL 20 MG/ML VIAL 10 MG IV PUSH (08:57)
--- NOTE | 2023-04-23 09:00 | ECG_ITS ---
Measurements Intervals [place] Rate: 63 P: 21 SC: 137 QRS: -13 QRSD: 81 T: 16 QT: 398 QTc: 409 Interpretive Statements SINUS RHYTHM MODERATE VOLTAGE CRITERIA FOR LVH, CONSIDER NORMAL VARIANT [MEETS CRITERIA IN ONE OF: R(aVL), S(V1), R(V5), R(V5/V6)+S(V1)] POSSIBLE ANTERIOR MYOCARDIAL INFARCTION , PROBABLY OLD [30 ms Q WAVE IN V3/V4, OR R < 0.2 mV IN V4] COMPARED TO ECG 04/06/2023 05:15:32 SINUS RHYTHM NOW PRESENT Electronically Signed On 04-24-2023 14:31:08 MAINTENANCE MECHANIC by Renu Mccarthy M.D.
[2023-04-23 09:41] LABS: Troponin I 0.014 ng/mL (0.000-0.034)
[2023-04-23] MEDS: IPRATROPIUM BR 0.02% INH SOLN 0.5 MG/2.5 ML VIAL INHALATION (09:46)
[2023-04-23] MEDS: ALBUTEROL SULFATE NEB 2.5 MG/3 ML INH 1.25 MG INHALATION (09:47)
[2023-04-23 11:59] LABS: Glucose Point of Care 190 mg/dl (65-105)
--- NOTE | 2023-04-23 11:59 | PM.CNCAR ---
Assessment and Plan Assessment and plan (1) Hypertension: Code(s): I10 - Essential (primary) hypertension Status: Chronic Assessment and Plan: Uncontrolled. She is currently on: Spironolactone 25mg, Metoprolol tartrate 125mg BID, Lasix 40mg QD, Minoxidil 5mg, Lisinopril 20mg. Will increase her Lisinopril to 40mg. Add Nifedipine 30mg. (2) Atrial fibrillation: Code(s): I48.91 - Unspecified atrial fibrillation Status: Acute Assessment and Plan: Currently in sinus rhythm. Continue beta micheal. Eliquis is on hold due to epistaxis. Resume when no longer having bleeding issues. (3) Acute CHF (congestive heart failure): Qualifiers: Heart failure type: unspecified Qualified Code(s): I50.9 - Heart failure, unspecified Code(s): I50.9 - Heart failure, unspecified Status: Acute Assessment and Plan: Appears euvolemic now. Continue with PO Lasix. (4) Elevated troponin: Code(s): R79.89 - Other specified abnormal findings of blood chemistry Status: Acute Assessment and Plan: Had elevated troponins back on 04/04, with peak of 1.38. Lexiscan with normal myocardial perfusion imaging but abnormal stress ECG concerning for ischemic changes. Echocardiogram on 04/04 shows LVEF 65-70%, grade 1 diastolic dysfunction, no significant valvular disease. EKGs without ischemic changes. Currently without chest pain. Recommend medical management. Would recommend ASA and statin, however, patient and son have declined ASA and statin per primary notes. Continue beta micheal. History of Present Illness History of Present Illness Consult date/time: 04/23/23 11:59 Requesting physician: Charles Shen MD Consult reason: Other (High blood pressure, AFIB, elevated troponins, borderline Lexiscan) Reason For Visit: CHF Exacerbation, New O2 Requirement, Weakness/Dif Narrative: Reason for consult: High blood pressure, AFIB, elevated troponins, borderline Lexiscan. Patient was admitted on 04/02 for worsening bilateral lower extremity swelling, shortness of breath, chest congestion, cough, difficulty walking. She has been treated for acute hypoxic respiratory failure, C difficile colitis, congestive heart failure, hospital acquired pneumonia. Cardiac workup thus far shows: Lexiscan with normal myocardial perfusion imaging but abnormal stress ECG concerning for ischemic changes. Echocardiogram on 04/04 shows LVEF 65-70%, grade 1 diastolic dysfunction, no significant valvular disease. Patient reported chest pain this morning, EKG was obtained, which was negative for ischemic changes. Upon my evaluation, patient denies any chest pain, no shortness of breath, states she just feels bad. Per nursing staff, patient became confused this morning and remains confused. Review of Systems Review of Systems: All systems reviewed & are unremarkable except as noted in HPI and below (HPI) [facility] Past Medical History Medical History Acquired hypertriglyceridemia Age related osteoporosis Aortic atherosclerosis Atrial fibrillation Exudative age-related macular degeneration, left eye, with inactive choroidal neovascularization Gastroesophageal reflux disease Gout Hepatic steatosis Hypertension 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, right eye, intermediate dry stage Overactive bladder Surgical History Surgical History History of cholecystectomy History of repair of rotator cuff Family History Family History Father Asthma Cerebrovascular accident Family history of diabetes mellitus in first degree relative Sibling Family history of diabetes mellitus in first degree relative Family history of malignant neoplasm of urinary bladder Mother Family history of heart disease in male family member before a
[2023-04-23] MEDS: MEROPENEM 1 GM/NS 100 ML BAG IVPB ×2 (12:47→22:01)
[2023-04-23] MEDS: NIFEdipine 30 MG TAB.ER.24 PO (12:48)
[2023-04-23] MEDS: POTASSIUM/PHOSPHORUS/SODIUM 1.5 GM PACKET 1 PACKET PO (12:48)
[2023-04-23] MEDS: minoxidiL 2.5 MG TABLET 5 MG PO (12:49)
--- NOTE | 2023-04-23 13:37 | PCPTNOTE ---
The patient treatment was not able to be completed today due to patient's high BP. Will plan to continue treatment per plan of care.
[2023-04-23 16:37] LABS: Glucose Point of Care 245 mg/dl (65-105)
--- NOTE | 2023-04-23 16:49 | PCOTNOTE ---
Pt is not appropriate to be seen for Occupational therapy treatment per RN due to high bp. Will continue per poc duration/frequency when appropriate.
[2023-04-23] MEDS: INSULIN HUMAN ISOPHAN/REGULAR 70/30 (*BKC) 100 UNITS/ML 10 UNITS SUB-Q (17:47)
--- NOTE | 2023-04-23 19:12 | PM.IMPN ---
Progress Note: A&P Assessment and Plan (1) Acute hypoxic respiratory failure: Code(s): J96.01 - Acute respiratory failure with hypoxia Status: Acute Assessment and Plan: Secondary to acute on chronic diastolic CHF - BNP on admission 1500 w/ pulmonary edema and LE swelling. LE dopplers neg for DVT. Echo demonstrating EF 65-70%, Improving, continue current treatment monitor closely. (2) C. difficile colitis: Code(s): A04.72 - Enterocolitis due to Clostridium difficile, not specified as recurrent Status: Acute Assessment and Plan: Patient with extensive number of stools 04/16 but improving now. Continue to monitor stool output. Continue current vancomycin dosing. Improving, continue current treatment (3) Acute CHF (congestive heart failure): Qualifiers: Heart failure type: unspecified Qualified Code(s): I50.9 - Heart failure, unspecified Code(s): I50.9 - Heart failure, unspecified Status: Acute Assessment and Plan: Acute on chronic diastolic CHF Patient was treated with a few doses of IV Lasix but has been on oral Lasix since 04/08/2023. Clinically appears euvolemic. Continue metoprolol and spironolactone. Renal function stable Increase activity as tolerated, continue current treatment (4) Elevated troponin: Code(s): R79.89 - Other specified abnormal findings of blood chemistry Status: Acute Assessment and Plan: Patient typically becomes anxious and has SOB with chest pain Troponins are flat. Lexiscan done on 04/[address] segment depression but nuclear imaes showing no definitive ischemia or infarct with normal LVEF 70% The patient should follow up with cardiology as outpatient. The son prefers cardiology from [facility]. Pt already on metoprolol. Pt and son elected not to use aspirin due to high uric acid level and not to use statin given she has issues already with leg pain. Continue medical management 04/23/2023: Repeat troponin today is normal at 0.14 (5) Hospital acquired PNA: Code(s): J18.9 - Pneumonia, unspecified organism; Y95 - Nosocomial condition Status: Acute Assessment and Plan: Improving, repeat chest x-ray on 04/20/2023 is stable (6) Leukocytosis: Code(s): D72.829 - Elevated white blood cell count, unspecified Status: Acute Assessment and Plan: Continue antibiotics and monitor closely. Leukocytosis slowly improving ... 21.2-17.2-10.4 (7) Atrial fibrillation: Code(s): I48.91 - Unspecified atrial fibrillation Status: Acute Assessment and Plan: Stable on current medication, will continue current treatment. Hold off on aspirin and Eliquis secondary to nasal bleeding Cardiology consulted for evaluation (8) Generalized weakness: Code(s): R53.1 - Weakness Status: Acute Assessment and Plan: Patient with generalized weakness. Related to above. Continue PT and OT. 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 (11) Hypertension: Code(s): I10 - Essential (primary) hypertension Status: Chronic Assessment and Plan: Patient with elevated blood pressure, multiple meds given to control blood pressure. Please see the note below: Plan # left kidney cystic mass - appears benign. serial monitoring outpatient - urology consult given for evaluation - asymptomatic left renal cystic mass likely benign. No further workup needed as per Urology # uncontrolled hypertension -slowly being controlled with the med adjust
[2023-04-23 21:13] LABS: Glucose Point of Care 303 mg/dl (65-105)
[2023-04-23] MEDS: INSULIN ASPART (*BKC) 100 UNITS/ML SUB-Q (22:01)
[2023-04-24] VITALS (7 sets, daily range): BP systolic 137–162; BP diastolic 59–73; PULSE 62–79; RESP 18–20; TEMP 36.4–36.8; O2SAT 94–96
[2023-04-24] MEDS: VANCOMYCIN HCL 250 MG ORAL CAPSULE 500 MG PO ×4 (05:42→23:29)
[2023-04-24 06:29] LABS: Basophils Absolute Auto 0.1 K/mm3 (0.0-0.1); Basophils Percent Auto 0.5 % (0.2-1.2); Eosinophils Absolute Auto 0.2 K/mm3 (0-0.3); Eosinophils Percent Auto 2.1 % (0-4.4); Hematocrit 35.2 % (37.0-47.0); Immature Granulocyte Absolute 0.15 K/mm3 (0.00-0.031); Immature Granulocyte Percent A 1.4 % (0-0.5); Lymphocytes Absolute Auto 1.58 K/mm3 (0.9-3.2); Lymphocytes Percent Auto 14.7 % (18.3-44.2); Mean Corpuscular HGB Conc 31.3 g/dl (32-36); Mean Corpuscular Volume 95.9 fl (80-100); Mean Platelet Volume 9.5 fl (7.4-10.4); Monocytes Absolute Auto 0.9 K/mm3 (0.1-0.6); Monocytes Percent Auto 8.4 % (2.6-8.5); Neutrophils Absolute Auto 7.8 K/mm3 (1.3-6.7); Neutrophils Percent Auto 72.9 % (45.5-73.1); Platelet Count Result 374 k/mm3 (150-375); Red Blood Count 3.67 M/mm3 (4.2-5.4); Red Cell Distribution Width 14.7 % (11.5-14.5); White Blood Count 10.7 K/mm3 (4.5-10.0)
[2023-04-24 06:48] LABS: Anion Gap 3 mmol/L (8-16); Blood Urea Nitrogen 15 mg/dL (7-17); Calcium 9.1 mg/dL (8.4-10.2); Carbon Dioxide 32 mmol/L (22-30); Chloride 103 mmol/L (98-107); Estimated CRCL calculation 61 ml/min; Estimated Glomerular Filt Rate > 60; Glucose 180 mg/dL (65-110); Sodium 138 mmol/L (137-145)
[2023-04-24 08:39] LABS: Glucose Point of Care 179 mg/dl (65-105)
[2023-04-24] MEDS: ACETAMINOPHEN 500 MG TABLET 1000 MG PO (08:41)
[2023-04-24] MEDS: FEBUXOSTAT 40 MG TABLET PO (08:41)
[2023-04-24] MEDS: METOPROLOL TARTRATE 25 MG TABLET 125 MG PO ×2 (08:41→21:17)
[2023-04-24] MEDS: lisinopriL 20 MG TABLET 40 MG PO (08:42)
[2023-04-24] MEDS: CYANOCOBALAMIN 1,000 MCG TABLET 3000 MCG PO (08:42)
[2023-04-24] MEDS: SPIRONOLACTONE 25 MG TABLET PO (08:42)
[2023-04-24] MEDS: SACCHAROMYCES BOULARDII 250 MG CAPSULE PO ×2 (08:42→20:23)
[2023-04-24] MEDS: DICLOFENAC SODIUM 1% 100 GM GEL (*BKC) 1 APPLIC TOPICAL ×4 (08:44→21:18)
[2023-04-24] MEDS: TOLNAFTATE 1% POWDER 45 GM BTL 1 APPLIC TOPICAL ×2 (08:44→21:19)
[2023-04-24] MEDS: levoFLOXacin 250 MG/D5W 50 ML 250 MG/50 ML BAG 50 MG IVPB (09:07)
[2023-04-24] MEDS: MEROPENEM 1 GM/NS 100 ML BAG IVPB ×2 (09:08→21:24)
[2023-04-24] MEDS: PANTOPRAZOLE SODIUM IV 40 MG VIAL IV PUSH (09:09)
--- NOTE | 2023-04-24 10:49 | PM.PNCARD ---
Progress Note: A&P Assessment and Plan (1) Hypertension: Code(s): I10 - Essential (primary) hypertension Status: Chronic Assessment and Plan: Better pressures now. She is currently on: Spironolactone 25mg, Metoprolol tartrate 125mg BID, Lasix 40mg QD, Minoxidil 5mg, Lisinopril 20mg. I increased her Lisinopril to 40mg and added Nifedipine 30mg. Continue with this current regimen. If additional blood pressure control is needed, can increase the Nifedipine. (2) Atrial fibrillation: Code(s): I48.91 - Unspecified atrial fibrillation Status: Acute Assessment and Plan: Currently in sinus rhythm. Continue beta micheal. Eliquis is on hold due to epistaxis. Resume when no longer having bleeding issues. (3) Acute CHF (congestive heart failure): Qualifiers: Heart failure type: unspecified Qualified Code(s): I50.9 - Heart failure, unspecified Code(s): I50.9 - Heart failure, unspecified Status: Acute Assessment and Plan: Appears euvolemic now. Continue with PO Lasix. (4) Elevated troponin: Code(s): R79.89 - Other specified abnormal findings of blood chemistry Status: Acute Assessment and Plan: Had elevated troponins back on 04/04, with peak of 1.38. Lexiscan with normal myocardial perfusion imaging but abnormal stress ECG concerning for ischemic changes. Echocardiogram on 04/04 shows LVEF 65-70%, grade 1 diastolic dysfunction, no significant valvular disease. EKGs without ischemic changes. Currently without chest pain.? Recommend medical management. Would recommend ASA and statin, however, patient and son have declined ASA and statin per primary notes. Continue beta micheal. Plan Cardiology will sign off at this time. Please call us back if needed. Subjective Date/time seen: 04/24/23 10:49 Interval history: Reason for consult: High blood pressure, AFIB, elevated troponins, borderline Lexiscan. Patient was admitted on 04/02 for worsening bilateral lower extremity swelling, shortness of breath, chest congestion, cough, difficulty walking. She has been treated for acute hypoxic respiratory failure, C difficile colitis, congestive heart failure, hospital acquired pneumonia. Cardiac workup thus far shows: Lexiscan with normal myocardial perfusion imaging but abnormal stress ECG concerning for ischemic changes. Echocardiogram on 04/04 shows LVEF 65-70%, grade 1 diastolic dysfunction, no significant valvular disease. Patient reported chest pain this morning, EKG was obtained, which was negative for ischemic changes. Upon my evaluation, patient denies any chest pain, no shortness of breath, states she just feels bad. Per nursing staff, patient became confused this morning and remains confused. Date of service 04/24: Blood pressures are better this morning. Tele stable. Review of Systems Review of Systems: + Fatigue, no chest pain Exam Const: General: no acute distress Eyes: General: appearance normal, both eyes and all related structures Resp: Effort & Inspection: normal respiratory effort Cardio: Rate: regular rate Rhythm: regular rhythm Skin: General skin exam: normal color Psych: Mental Status: mental status grossly normal Affect: normal affect Objective Data Vital Signs Vital Signs: Vital Signs - 24 hr 04/23/23 13:50 04/23/23 12:00 04/23/23 16:00 Temperature 36.4 C Pulse Rate 68 75 72 Respiratory Rate 22 H Blood Pressure 182/78 H Pulse Oximetry 97 Oxygen Delivery 04/23/23 22:00 04/23/23 20:00 04/23/23 20:00 Temperature 36.6 C Pulse Rate 74 76 Respiratory Rate 18 Blood Pressure 145/51 H Pulse Oximetry 93 93 Oxygen Delivery Room Air 04/24/23 00:00 04/24/23 06:00 04/24/23 08:41 Temperature 36.8 C Pulse Rate 66 72 71 Respiratory Rate 18 Blood Pressure 137/64 Pulse Oximetry 94 Oxygen Delivery Intake/Output Intake/Output: Intake & Output 04/21/23 04/22/23 04/23/2304/24
[2023-04-24] MEDS: minoxidiL 2.5 MG TABLET 5 MG PO (12:26)
[2023-04-24] MEDS: NIFEdipine 30 MG TAB.ER.24 PO (12:31)
--- NOTE | 2023-04-24 12:46 | PM.IMPN ---
Progress Note: A&P Assessment and Plan (1) Acute hypoxic respiratory failure: Code(s): J96.01 - Acute respiratory failure with hypoxia Status: Acute Assessment and Plan: Secondary to acute on chronic diastolic CHF - BNP on admission 1500 w/ pulmonary edema and LE swelling. LE dopplers neg for DVT. Echo demonstrating EF 65-70%, Continue furosemide 40 mg po daily Control BP (2) C. difficile colitis: Code(s): A04.72 - Enterocolitis due to Clostridium difficile, not specified as recurrent Status: Acute Assessment and Plan: Patient with extensive number of stools 04/16 but improving now. Continue to monitor stool output. Continue current vancomycin dosing. Improving Continue Vancomycin 500 mg PO q 6 hr (start date 04/15/2023) for at least 10 days (3) Acute CHF (congestive heart failure): Qualifiers: Heart failure type: unspecified Qualified Code(s): I50.9 - Heart failure, unspecified Code(s): I50.9 - Heart failure, unspecified Status: Acute Assessment and Plan: Acute on chronic diastolic CHF Patient was treated with a few doses of IV Lasix but has been on oral Lasix since 04/08/2023. Clinically appears euvolemic. Continue metoprolol and spironolactone and furosemide PO Renal function stable Increase activity as tolerated, continue current treatment (4) Elevated troponin: Code(s): R79.89 - Other specified abnormal findings of blood chemistry Status: Acute Assessment and Plan: Patient typically becomes anxious and has SOB with chest pain Troponins are flat. Lexiscan done on 04/[address] segment depression but nuclear imaes showing no definitive ischemia or infarct with normal LVEF 70% The patient should follow up with cardiology as outpatient. The son prefers cardiology from [facility]. Pt already on metoprolol. Pt and son elected not to use aspirin due to high uric acid level and not to use statin given she has issues already with leg pain. Continue medical management 04/23/2023: Repeat troponin normal at 0.14 (5) Hospital acquired PNA: Code(s): J18.9 - Pneumonia, unspecified organism; Y95 - Nosocomial condition Status: Acute Assessment and Plan: Improving, repeat chest x-ray on 04/20/2023 is stable Meropenem started 04/20 and Levaqin started 04/21 (6) Atrial fibrillation: Code(s): I48.91 - Unspecified atrial fibrillation Status: Acute Assessment and Plan: Stable on current medication, will continue current treatment. Hold off on aspirin and Eliquis secondary to nasal bleeding Rate control only at this time Cardiology consulted for evaluation (7) Generalized weakness: Code(s): R53.1 - Weakness Status: Acute Assessment and Plan: Patient with generalized weakness. Related to above. Continue PT and OT. (8) Insulin dependent type 2 diabetes mellitus: Code(s): E11.9 - Type 2 diabetes mellitus without complications; Z79.4 - [facility] (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 of insulin Status: Acute Assessment and Plan: Stable on current medication, will continue current treatment. (9) Hypertension: Code(s): I10 - Essential (primary) hypertension Status: Chronic Assessment and Plan: Patient with elevated blood pressure, multiple meds given to control blood pressure. 04/24/2023 Nifedipine added and lisinopril increased. Also receiving metoprolol and minoxidil and spironolactone Subjective Date/time seen: 04/24/23 12:46 Interval history: Minimal diarrhea today. Denied abdominal cramps or and vomiting. Does have some nausea. Denied chest pain or shortness of breath. Denied abnormal bleeding. Denied symptoms. Denied focal weakness. Mild headache. Still has still rocket in left naris status post epistaxis. Review of Systems Review of Systems: All systems reviewed & are unremarkable except as noted in HPI and below Exam Narrative:
--- NOTE | 2023-04-24 14:05 | PCPTNOTE ---
Attempted to see patient but patient very sleepy. Patient is arousable but falls back asleep. Vital signs stable. PT will continue to follow per plan of care.
[2023-04-24 16:50] LABS: Glucose Point of Care 238 mg/dl (65-105)
--- NOTE | 2023-04-24 17:03 | PC.NURSE ---
Dr. Crespo states that we do not need to isolate for c diff any longer since patient has had 10 days of treatment and formed stool. patient changed to standard precautions.
[2023-04-24 21:32] LABS: Glucose Point of Care 346 mg/dl (65-105)
[2023-04-24] MEDS: PROMETHAZINE HCL 25 MG/ML AMPUL 12.5 MG IV PUSH (21:44)
[2023-04-24] MEDS: INSULIN ASPART (*BKC) 100 UNITS/ML SUB-Q (21:53)
[2023-04-24] MEDS: SODIUM CHLORIDE 0.9% IV 100 ML (21:53)
[2023-04-25] VITALS (7 sets, daily range): BP systolic 103–154; BP diastolic 51–91; PULSE 71–81; RESP 12–20; TEMP 36.8–37.2; O2SAT 94–97
[2023-04-25] MEDS: VANCOMYCIN HCL 250 MG ORAL CAPSULE 500 MG PO ×4 (06:16→23:04)
[2023-04-25 06:29] LABS: Basophils Absolute Auto 0.1 K/mm3 (0.0-0.1); Eosinophils Absolute Auto 0.4 K/mm3 (0-0.3); Eosinophils Percent Auto 3.1 % (0-4.4); Hematocrit 35.8 % (37.0-47.0); Hemoglobin 11.4 g/dL (12.0-15.0); Immature Granulocyte Absolute 0.24 K/mm3 (0.00-0.031); Immature Granulocyte Percent A 2.1 % (0-0.5); Mean Corpuscular HGB Conc 31.8 g/dl (32-36); Mean Corpuscular Hemoglobin 30.2 pg (26-34); Mean Platelet Volume 9.6 fl (7.4-10.4); Neutrophils Absolute Auto 7.7 K/mm3 (1.3-6.7); Neutrophils Percent Auto 68.8 % (45.5-73.1); Platelet Count Result 373 k/mm3 (150-375); Red Blood Count 3.77 M/mm3 (4.2-5.4); White Blood Count 11.2 K/mm3 (4.5-10.0)
[2023-04-25 06:33] LABS: Anion Gap 6 mmol/L (8-16); Blood Urea Nitrogen 15 mg/dL (7-17); Calcium 9.3 mg/dL (8.4-10.2); Carbon Dioxide 30 mmol/L (22-30); Chloride 102 mmol/L (98-107); Estimated CRCL calculation 53 ml/min; Estimated Glomerular Filt Rate > 60; Glucose 187 mg/dL (65-110); Potassium 4.2 mmol/L (3.4-5.0); Sodium 138 mmol/L (137-145)
[2023-04-25 08:17] LABS: Glucose Point of Care 179 mg/dl (65-105)
[2023-04-25] MEDS: SACCHAROMYCES BOULARDII 250 MG CAPSULE PO ×2 (08:32→18:29)
[2023-04-25] MEDS: METOPROLOL TARTRATE 25 MG TABLET 125 MG PO ×2 (08:32→21:16)
[2023-04-25] MEDS: FEBUXOSTAT 40 MG TABLET PO (08:32)
[2023-04-25] MEDS: CYANOCOBALAMIN 1,000 MCG TABLET 3000 MCG PO (08:32)
[2023-04-25] MEDS: lisinopriL 20 MG TABLET 40 MG PO (08:33)
[2023-04-25] MEDS: SPIRONOLACTONE 25 MG TABLET PO (08:33)
[2023-04-25] MEDS: DICLOFENAC SODIUM 1% 100 GM GEL (*BKC) 1 APPLIC TOPICAL ×4 (08:33→21:16)
[2023-04-25] MEDS: TOLNAFTATE 1% POWDER 45 GM BTL 1 APPLIC TOPICAL ×2 (08:33→21:17)
[2023-04-25] MEDS: INSULIN HUMAN ISOPHAN/REGULAR 70/30 (*BKC) 100 UNITS/ML 10 UNITS SUB-Q ×3 (08:37→18:34)
[2023-04-25] MEDS: PANTOPRAZOLE SODIUM IV 40 MG VIAL IV PUSH (08:37)
[2023-04-25] MEDS: levoFLOXacin 250 MG/D5W 50 ML 250 MG/50 ML BAG 50 MG IVPB (09:42)
[2023-04-25 11:41] LABS: Glucose Point of Care 230 mg/dl (65-105)
--- NOTE | 2023-04-25 12:32 | PM.IMPN ---
Progress Note: A&P Assessment and Plan (1) Acute hypoxic respiratory failure: Code(s): J96.01 - Acute respiratory failure with hypoxia Status: Acute Assessment and Plan: Secondary to acute on chronic diastolic CHF - BNP on admission 1500 w/ pulmonary edema and LE swelling. LE dopplers neg for DVT. Echo demonstrating EF 65-70%, Continue furosemide 40 mg po daily Control BP (2) C. difficile colitis: Code(s): A04.72 - Enterocolitis due to Clostridium difficile, not specified as recurrent Status: Acute Assessment and Plan: Patient with extensive number of stools 04/16 but improving now. Continue to monitor stool output. Continue current vancomycin dosing. Improving Continue Vancomycin 500 mg PO q 6 hr (start date 04/15/2023) for at least 10 days (3) Acute CHF (congestive heart failure): Qualifiers: Heart failure type: unspecified Qualified Code(s): I50.9 - Heart failure, unspecified Code(s): I50.9 - Heart failure, unspecified Status: Acute Assessment and Plan: Acute on chronic diastolic CHF Patient was treated with a few doses of IV Lasix but has been on oral Lasix since 04/08/2023. Clinically appears euvolemic. Continue metoprolol and spironolactone and furosemide PO Renal function stable Increase activity as tolerated, continue current treatment (4) Elevated troponin: Code(s): R79.89 - Other specified abnormal findings of blood chemistry Status: Acute Assessment and Plan: Patient typically becomes anxious and has SOB with chest pain Troponins are flat. Lexiscan done on 04/[address] segment depression but nuclear imaes showing no definitive ischemia or infarct with normal LVEF 70% The patient should follow up with cardiology as outpatient. The son prefers cardiology from [facility]. Pt already on metoprolol. Pt and son elected not to use aspirin due to high uric acid level and not to use statin given she has issues already with leg pain. Continue medical management 04/23/2023: Repeat troponin normal at 0.14 (5) Hospital acquired PNA: Code(s): J18.9 - Pneumonia, unspecified organism; Y95 - Nosocomial condition Status: Acute Assessment and Plan: Improving, repeat chest x-ray on 04/20/2023 is stable Meropenem started 04/20 and Levaqin started 04/21 (6) Atrial fibrillation: Code(s): I48.91 - Unspecified atrial fibrillation Status: Acute Assessment and Plan: Stable on current medication, will continue current treatment. Hold off on aspirin and Eliquis secondary to nasal bleeding Rate control only at this time Cardiology consulted for evaluation (7) Generalized weakness: Code(s): R53.1 - Weakness Status: Acute Assessment and Plan: Patient with generalized weakness. Related to above. Continue PT and OT. 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 (9) Hypertension: Code(s): I10 - Essential (primary) hypertension Status: Chronic Assessment and Plan: Patient with elevated blood pressure, multiple meds given to control blood pressure. 04/24/2023 Nifedipine added and lisinopril increased. Also receiving metoprolol and minoxidil and spironolactone Subjective Date/time seen: 04/25/23 12:32 Interval history: Minimal diarrhea today. Denied abdominal cramps or and vomiting. Does have some nausea. Denied chest pain or shortness of breath. Denied abnormal bleeding. Denied symptoms. Denied focal weakness. Mild headache. Still has still rocket in left naris status post epistaxis. Awaiting removal of rocket for discharge Review of Systems Review of Systems: Patient had multiple episodes of bleeding from
[2023-04-25] MEDS: MEROPENEM 1 GM/NS 100 ML BAG IVPB ×2 (12:59→21:17)
[2023-04-25] MEDS: INSULIN ASPART (*BKC) 100 UNITS/ML SUB-Q (13:03)
[2023-04-25] MEDS: minoxidiL 2.5 MG TABLET 5 MG PO (15:00)
[2023-04-25] MEDS: NIFEdipine 30 MG TAB.ER.24 PO (15:00)
[2023-04-25 17:17] LABS: Glucose Point of Care 147 mg/dl (65-105)
[2023-04-25 21:21] LABS: Glucose Point of Care 128 mg/dl (65-105)
[2023-04-26] MEDS: VANCOMYCIN HCL 250 MG ORAL CAPSULE 500 MG PO ×3 (05:06→17:27)
[2023-04-26 06:00] VITALS: BP 111/44; PULSE 77; RESP 18; TEMP 37; O2SAT 96
[2023-04-26 06:33] LABS: Basophils Absolute Auto 0.1 K/mm3 (0.0-0.1); Basophils Percent Auto 0.4 % (0.2-1.2); Eosinophils Absolute Auto 0.1 K/mm3 (0-0.3); Eosinophils Percent Auto 0.6 % (0-4.4); Hematocrit 34.5 % (37.0-47.0); Hemoglobin 10.8 g/dL (12.0-15.0); Immature Granulocyte Absolute 0.29 K/mm3 (0.00-0.031); Immature Granulocyte Percent A 1.6 % (0-0.5); Lymphocytes Absolute Auto 1.31 K/mm3 (0.9-3.2); Lymphocytes Percent Auto 7.3 % (18.3-44.2); Mean Corpuscular HGB Conc 31.3 g/dl (32-36); Mean Corpuscular Hemoglobin 30.1 pg (26-34); Mean Corpuscular Volume 96.1 fl (80-100); Mean Platelet Volume 9.5 fl (7.4-10.4); Monocytes Absolute Auto 1.6 K/mm3 (0.1-0.6); Monocytes Percent Auto 8.9 % (2.6-8.5); Neutrophils Absolute Auto 14.6 K/mm3 (1.3-6.7); Neutrophils Percent Auto 81.2 % (45.5-73.1); Platelet Count Result 333 k/mm3 (150-375); Red Blood Count 3.59 M/mm3 (4.2-5.4); Red Cell Distribution Width 15.4 % (11.5-14.5)
[2023-04-26 06:43] LABS: Alanine Aminotransferase 10 U/L (6-35); Albumin Level 2.9 g/dL (3.5-5.1); Alkaline Phosphatase 74 U/L (38-126); Anion Gap 8 mmol/L (8-16); Aspartate Amino Transferase 19 U/L (14-36); Bilirubin,Total 1.1 mg/dL (0.2-1.3); Blood Urea Nitrogen 18 mg/dL (7-17); Calcium 9.1 mg/dL (8.4-10.2); Carbon Dioxide 25 mmol/L (22-30); Chloride 104 mmol/L (98-107); Estimated CRCL calculation 61 ml/min; Estimated Glomerular Filt Rate > 60; Glucose 127 mg/dL (65-110); Potassium 4.3 mmol/L (3.4-5.0); Sodium 137 mmol/L (137-145)
[2023-04-26 08:06] LABS: Glucose Point of Care 134 mg/dl (65-105)
[2023-04-26] MEDS: CYANOCOBALAMIN 1,000 MCG TABLET 3000 MCG PO (08:50)
[2023-04-26] MEDS: DICLOFENAC SODIUM 1% 100 GM GEL (*BKC) 1 APPLIC TOPICAL ×4 (08:51→21:02)
[2023-04-26] MEDS: FEBUXOSTAT 40 MG TABLET PO (08:51)
[2023-04-26] MEDS: SACCHAROMYCES BOULARDII 250 MG CAPSULE PO ×2 (08:51→17:27)
[2023-04-26] MEDS: TOLNAFTATE 1% POWDER 45 GM BTL 1 APPLIC TOPICAL ×2 (08:52→21:02)
[2023-04-26] MEDS: SPIRONOLACTONE 25 MG TABLET PO (08:52)
[2023-04-26 09:01] VITALS: PULSE 81
[2023-04-26] MEDS: METOPROLOL TARTRATE 25 MG TABLET 125 MG PO (09:01)
[2023-04-26] MEDS: INSULIN HUMAN ISOPHAN/REGULAR 70/30 (*BKC) 100 UNITS/ML 10 UNITS SUB-Q ×3 (09:02→17:29)
[2023-04-26] MEDS: levoFLOXacin 250 MG/D5W 50 ML 250 MG/50 ML BAG 50 MG IVPB (09:02)
[2023-04-26] MEDS: lisinopriL 20 MG TABLET 40 MG PO (09:02)
[2023-04-26] MEDS: PANTOPRAZOLE SODIUM IV 40 MG VIAL IV PUSH (09:07)
--- NOTE | 2023-04-26 10:48 | PC.NURSE ---
patient free of diarrhea for more than 24 hrs: contact precautions removed 04/26/23, also confirmed with ID RN
[2023-04-26 11:34] LABS: Glucose Point of Care 197 mg/dl (65-105)
[2023-04-26] MEDS: MEROPENEM 1 GM/NS 100 ML BAG IVPB ×2 (11:38→21:03)
--- NOTE | 2023-04-26 12:26 | PCNFU ---
Nutrition Follow-Up Complete: suboptimal po intake related to appetite as evidenced by charted intake Goal:PO intake 50% or greater for all meals Pt current nutrition is 2gm Diabetic consistent carb. Nutrition recommendation: Encourage po intake Last recorded weight is 80.9 kg. Bowel Motility: +BM 04/25 Labs Reviewed:Hgb:10.8, HCT:34.5, Alb:2.9, BUN:18, Cr:0.6, Glu:134 Meds Noted: eliquis, lasix, novolog Skin: no skin issues noted Additional Notes: Pt contines on a 2gm NA diabetic diet, with 1500ml fluid restriction. Intake varies from 25-50% at this time. Encourage po intake Monitor intake, wt, labs. Follow up in 5 days.
[2023-04-26 14:00] VITALS: BP 110/62; PULSE 74; RESP 22; TEMP 36.1; O2SAT 95
[2023-04-26] MEDS: NEOMYCIN/POLYMYXIN/BACITRACIN OINTMENT PACKET 2 PACKET (14:09)
[2023-04-26] MEDS: minoxidiL 2.5 MG TABLET 5 MG PO (14:21)
[2023-04-26] MEDS: NIFEdipine 30 MG TAB.ER.24 PO (14:21)
[2023-04-26] MEDS: ACETAMINOPHEN 500 MG TABLET 1000 MG PO (14:24)
[2023-04-26 16:35] LABS: Glucose Point of Care 148 mg/dl (65-105)
--- NOTE | 2023-04-26 17:06 | PM.IMPN ---
Progress Note: A&P Assessment and Plan (1) Acute hypoxic respiratory failure: Code(s): J96.01 - Acute respiratory failure with hypoxia Status: Acute Assessment and Plan: Secondary to acute on chronic diastolic CHF - BNP on admission 1500 w/ pulmonary edema and LE swelling. LE dopplers neg for DVT. Echo demonstrating EF 65-70%, Continue furosemide 40 mg po daily Control BP (2) C. difficile colitis: Code(s): A04.72 - Enterocolitis due to Clostridium difficile, not specified as recurrent Status: Acute Assessment and Plan: Patient with extensive number of stools 04/16 but improving now. Continue to monitor stool output. Continue current vancomycin dosing. Improving Continue Vancomycin 500 mg PO q 6 hr (start date 04/15/2023) for at least 10 days (3) Acute CHF (congestive heart failure): Qualifiers: Heart failure type: unspecified Qualified Code(s): I50.9 - Heart failure, unspecified Code(s): I50.9 - Heart failure, unspecified Status: Acute Assessment and Plan: Acute on chronic diastolic CHF Patient was treated with a few doses of IV Lasix but has been on oral Lasix since 04/08/2023. Clinically appears euvolemic. Continue metoprolol and spironolactone and furosemide PO Renal function stable Increase activity as tolerated, continue current treatment (4) Elevated troponin: Code(s): R79.89 - Other specified abnormal findings of blood chemistry Status: Acute Assessment and Plan: Patient typically becomes anxious and has SOB with chest pain Troponins are flat. Lexiscan done on 04/[address] segment depression but nuclear imaes showing no definitive ischemia or infarct with normal LVEF 70% The patient should follow up with cardiology as outpatient. The son prefers cardiology from [facility]. Pt already on metoprolol. Pt and son elected not to use aspirin due to high uric acid level and not to use statin given she has issues already with leg pain. Continue medical management 04/23/2023: Repeat troponin normal at 0.14 (5) Hospital acquired PNA: Code(s): J18.9 - Pneumonia, unspecified organism; Y95 - Nosocomial condition Status: Acute Assessment and Plan: Improving, repeat chest x-ray on 04/20/2023 is stable Meropenem started 04/20 and Levaqin started 04/21 (6) Atrial fibrillation: Code(s): I48.91 - Unspecified atrial fibrillation Status: Acute Assessment and Plan: Stable on current medication, will continue current treatment. Hold off on aspirin and Eliquis secondary to nasal bleeding Rate control only at this time Cardiology consulted for evaluation (7) Generalized weakness: Code(s): R53.1 - Weakness Status: Acute Assessment and Plan: Patient with generalized weakness. Related to above. Continue PT and OT. (8) Insulin dependent type 2 diabetes mellitus: Code(s): E11.9 - Type 2 diabetes mellitus without complications; Z79.4 - halfway (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 of insulin Status: Acute Assessment and Plan: Stable on current medication, will continue current treatment. (9) Hypertension: Code(s): I10 - Essential (primary) hypertension Status: Chronic Assessment and Plan: Patient with elevated blood pressure, multiple meds given to control blood pressure. 04/24/2023 Nifedipine added and lisinopril increased. Also receiving metoprolol and minoxidil and spironolactone Subjective Date/time seen: 04/26/23 17:06 Interval history: Minimal diarrhea today. Denied abdominal cramps or and vomiting. Does have some nausea. Denied chest pain or shortness of breath. Denied abnormal bleeding. Denied symptoms. Denied focal weakness. Mild headache. Still has still rocket in left naris status post epistaxis. Awaiting removal of rocket for discharge Review of Systems Review of Systems: Patient had multiple episodes of bleeding from
--- NOTE | 2023-04-26 17:40 | P.PCNBED_ITS ---
Procedures Other Procedures Procedure 1: Other Procedure: Left-sided nasal endoscopy. All consents obtained. Pediatric endoscope utilized after Afrin and lidocaine were applied. No active source of bleeding. Some scant bleeding from middle turbinate but looks like excoriation from the rh etta rocket. Patient tolerated the procedure well.
--- NOTE | 2023-04-26 17:41 | WPDCN ---
Assessment and Plan Assessment and plan (1) Left-sided epistaxis: Code(s): R04.0 - Epistaxis Status: Acute Assessment and Plan: Afrin 1 big scored on the left side 2 times per day for the next 2 days. , I would also recommend mupirocin 3-4 times per day upfront on the left side and right side. I would also recommend frequent nasal saline spray 4-6 times per day to keep the nasal passages moist. Follow-up with me as needed for any and all issues. No Forceful nose blowing for several weeks. HPI Data of Consult Date/Time: 04/26/23 17:41 Requesting Physician: Charles Shen MD Primary Care Provider: Roel Haynes MD Consult Narrative Narrative: Constanza Ventura is a 82 year old female With epistaxis from the left side. Rhino rocket placed. Patient has not bled in quite some time. ENT consult for further evaluation treatment. 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, right eye, intermediate dry stage Overactive bladder Surgical History Surgical History History of cholecystectomy History of repair of rotator cuff Family History Family History Father Asthma Cerebrovascular accident Family history of diabetes mellitus in first degree relative Sibling Family history of diabetes mellitus in first degree relative Family history of malignant neoplasm of urinary bladder Mother Family history of heart disease in male family member before age 55 Other Family history of arthritis Hypertension Social History Social History Social History: Surrogate medical decision maker: Julio Ventura, son. Code status: Full code. Smoking packs per day: 1 Smoking cigarettes per day: 20.0 Years smoked: 15 Smoking pack-years: 15.00 Smoking status: Never smoker Tobacco type: cigarettes Second hand tobacco smoke exposure: Yes Alcohol intake: never Substance use: never Substance use type: does not use Do You Feel Safe in your Home?: Yes Lack of Transportation: No Lack of Food: Never True Current Housing: I Have Housing Concerned About Future Housing: No Difficulty Paying Gas/Electric Bills: No Difficulty Paying for Meds: No Currently Unemployed: No Education: High School Diploma/GED Difficulty w/ Childcare or Family Care: No Living arrangements: with family Additional living arrangements comments: Lives in [place]. Son Julio stays with her. Occupation/Education: retired Spiritual care concerns: No Meds Home Medications and Allergies Home Medications Medication Instructions Recorded Confirmed Type pen needle, diabetic 31 gauge x #150 ea 05/28/22 04/02/23 Rx metolazone 2.5 mg tablet 2.5 mg PO DAILY #90 tabs 05/31/22 04/03/23 Rx pantoprazole 40 mg tablet,delayed 40 mg PO QAM #90 tabs 05/31/22 04/02/23 Rx release albuterol sulfate 90 mcg/actuation 2 inh inhalation Q2H PRN shortness 06/07/22 04/02/23 Rx aerosol inhaler of breath or wheezing #8.5 grams furosemide 80 mg tablet 80 mg PO QAM #90 tabs 06/07/22 04/02/23 Rx minoxidil 2.5 mg tablet 5 mg PO DAILY #60 tabs 11/01/22 04/02/23 Rx insulin NPH-regular 70-30 U-100 See Rx Instructions subcut TID #15 02/21/23 04/02/23 Rx insulin 100 unit/mL subcutaneous mL pen (Novolin 70-30 FlexPen U-100 Insulin)
[2023-04-26 21:14] LABS: Glucose Point of Care 158 mg/dl (65-105)
[2023-04-26 22:00] VITALS: BP 111/46; PULSE 64; RESP 18; TEMP 37; O2SAT 94
[2023-04-27] VITALS (9 sets, daily range): BP systolic 98–120; BP diastolic 45–71; PULSE 72–81; RESP 18–22; TEMP 36.8–37.8; O2SAT 93–100
[2023-04-27] MEDS: VANCOMYCIN HCL 250 MG ORAL CAPSULE 500 MG PO ×5 (00:23→23:39)
[2023-04-27] MEDS: ACETAMINOPHEN 500 MG TABLET 1000 MG PO ×2 (05:40→20:45)
[2023-04-27 06:52] LABS: Basophils Absolute Auto 0.1 K/mm3 (0.0-0.1); Basophils Percent Auto 0.4 % (0.2-1.2); Eosinophils Absolute Auto 0.2 K/mm3 (0-0.3); Eosinophils Percent Auto 1.3 % (0-4.4); Hematocrit 32.2 % (37.0-47.0); Hemoglobin 10.2 g/dL (12.0-15.0); Immature Granulocyte Absolute 0.33 K/mm3 (0.00-0.031); Lymphocytes Absolute Auto 1.18 K/mm3 (0.9-3.2); Lymphocytes Percent Auto 7.3 % (18.3-44.2); Mean Corpuscular HGB Conc 31.7 g/dl (32-36); Mean Corpuscular Hemoglobin 30.5 pg (26-34); Mean Corpuscular Volume 96.4 fl (80-100); Mean Platelet Volume 9.8 fl (7.4-10.4); Monocytes Absolute Auto 1.5 K/mm3 (0.1-0.6); Monocytes Percent Auto 9.1 % (2.6-8.5); Neutrophils Percent Auto 79.9 % (45.5-73.1); Platelet Count Result 287 k/mm3 (150-375); Red Blood Count 3.34 M/mm3 (4.2-5.4); Red Cell Distribution Width 15.7 % (11.5-14.5); White Blood Count 16.2 K/mm3 (4.5-10.0)
[2023-04-27 07:07] LABS: Anion Gap 7 mmol/L (8-16); Blood Urea Nitrogen 24 mg/dL (7-17); Calcium 8.9 mg/dL (8.4-10.2); Carbon Dioxide 28 mmol/L (22-30); Chloride 103 mmol/L (98-107); Estimated CRCL calculation 47 ml/min; Estimated Glomerular Filt Rate > 60; Glucose 143 mg/dL (65-110); Potassium 4.3 mmol/L (3.4-5.0); Sodium 138 mmol/L (137-145)
[2023-04-27 07:40] LABS: Glucose Point of Care 161 mg/dl (65-105)
--- NOTE | 2023-04-27 08:13 | PM.IMPN ---
Progress Note: A&P Assessment and Plan (1) Urinary retention: Code(s): R33.9 - Retention of urine, unspecified Status: Acute (2) C. difficile colitis: Code(s): A04.72 - Enterocolitis due to Clostridium difficile, not specified as recurrent Status: Acute (3) Acute CHF (congestive heart failure): Qualifiers: Heart failure type: unspecified Qualified Code(s): I50.9 - Heart failure, unspecified Code(s): I50.9 - Heart failure, unspecified Status: Acute (4) Left-sided epistaxis: Code(s): R04.0 - Epistaxis Status: Acute (5) Sepsis: Code(s): A41.9 - Sepsis, unspecified organism Status: Acute Plan (1) Acute hypoxic respiratory failure: ?Code(s): J96.01 - Acute respiratory failure with hypoxia ?Status:?Acute ?Assessment and Plan: Secondary to acute on chronic diastolic CHF - BNP on admission 1500 w/ pulmonary edema and LE swelling. ? LE dopplers neg for DVT. ? Echo demonstrating EF 65-70%, on furosemide 40 mg po daily Control BP DC furosemide because of low blood pressure 04/27/23 (2) C. difficile colitis: ?Code(s): A04.72 - Enterocolitis due to Clostridium difficile, not specified as recurrent ?Status:?Acute ?Assessment and Plan: Patient with extensive number of stools 04/16 but improving now.? Continue to monitor stool output.? Continue current vancomycin dosing. Improving Continue Vancomycin 500 mg PO q 6 hr (start date 04/15/2023) for at least 10 days 04/27/23 add Flagyl p.o., patient's fever, (3) Acute CHF (congestive heart failure): ?Qualifiers: ?Heart failure type:?unspecified? Qualified Code(s):?I50.9 - Heart failure, unspecified ?Code(s): I50.9 - Heart failure, unspecified ?Status:?Acute ?Assessment and Plan: Acute on chronic diastolic CHF Patient was treated with a few doses of IV Lasix but has been on oral Lasix since 04/08/2023.? Clinically appears euvolemic. Continue metoprolol and spironolactone and furosemide PO Renal function stable Increase activity as tolerated, continue current treatment (4) Elevated troponin: ?Code(s): R79.89 - Other specified abnormal findings of blood chemistry ?Status:?Acute ?Assessment and Plan: Patient typically becomes anxious and has SOB with chest pain Troponins are flat. Lexiscan done on 04/[address] segment depression but nuclear imaes showing no definitive ischemia or infarct with normal LVEF 70% The patient should follow up with cardiology as outpatient. The son prefers cardiology from [facility]. Pt already on metoprolol. Pt and son elected not to use aspirin due to high uric acid level and not to use statin given she has issues already with leg pain. Continue medical management 04/23/2023:? Repeat troponin normal at 0.14 (5) Hospital acquired PNA: ?Code(s): J18.9 - Pneumonia, unspecified organism; Y95 - Nosocomial condition ?Status:?Acute ?Assessment and Plan: Improving, repeat chest x-ray on 04/20/2023? is stable Meropenem started 04/20 and Levaqin started 04/2104/27/23 pt has fever, repeat CXR (6) Atrial fibrillation: ?Code(s): I48.91 - Unspecified atrial fibrillation ?Status:?Acute ?Assessment and Plan: Stable on current medication, will continue current treatment. Hold off on aspirin and Eliquis secondary to nasal bleeding Rate control only at this time Cardiology consulted for evaluation (7) Generalized weakness: ?Code(s): R53.1 - Weakness ?Status:?Acute ?Assessment and Plan: Patient with generalized weakness. Related to above. Continue PT and OT. (8) Insulin dependent type 2 diabetes mellitus: ?Code(s): E11.9 - Type 2 diabetes mellitus without complications; Z79.4 - assisted (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 of insulin ?Status:?Acute ?Assessment and Plan: Stable on current medication, will continue current treatment. (9) Hypertension: ?Code(s): I10 - [facility]
[2023-04-27] MEDS: CYANOCOBALAMIN 1,000 MCG TABLET 3000 MCG PO (08:46)
[2023-04-27] MEDS: FEBUXOSTAT 40 MG TABLET PO (08:47)
[2023-04-27] MEDS: INSULIN HUMAN ISOPHAN/REGULAR 70/30 (*BKC) 100 UNITS/ML 10 UNITS SUB-Q ×3 (08:47→17:11)
[2023-04-27] MEDS: SACCHAROMYCES BOULARDII 250 MG CAPSULE PO ×2 (08:47→17:09)
[2023-04-27] MEDS: METOPROLOL TARTRATE 25 MG TABLET 125 MG PO (08:47)
[2023-04-27] MEDS: PANTOPRAZOLE SODIUM IV 40 MG VIAL IV PUSH (08:48)
[2023-04-27] MEDS: TOLNAFTATE 1% POWDER 45 GM BTL 1 APPLIC TOPICAL ×2 (08:48→20:58)
[2023-04-27] MEDS: DICLOFENAC SODIUM 1% 100 GM GEL (*BKC) 1 APPLIC TOPICAL ×4 (08:48→20:58)
[2023-04-27] MEDS: SODIUM CHLORIDE 0.9% IV 1,000 ML 100 ML IV CONT ×2 (08:52→20:55)
[2023-04-27] MEDS: FLUCONAZOLE 100 MG TABLET 200 MG PO (08:52)
[2023-04-27] MEDS: metroNIDAZOLE 500 MG TABLET PO ×3 (10:37→20:47)
[2023-04-27 11:28] LABS: Glucose Point of Care 259 mg/dl (65-105)
[2023-04-27] MEDS: minoxidiL 2.5 MG TABLET 5 MG PO (12:31)
[2023-04-27] MEDS: INSULIN ASPART (*BKC) 100 UNITS/ML SUB-Q ×2 (12:32→20:47)
--- NOTE | 2023-04-27 15:11 | PCPTNOTE ---
Attempted to see patient for PT, however patient declined due to just getting back to bed with nursing and patient wanted to eat her lunch at this time.
[2023-04-27 16:09] LABS: Glucose Point of Care 200 mg/dl (65-105)
[2023-04-27 20:17] LABS: Glucose Point of Care 221 mg/dl (65-105)
[2023-04-28] MEDS: metroNIDAZOLE 500 MG TABLET PO ×3 (05:12→21:44)
[2023-04-28] MEDS: VANCOMYCIN HCL 250 MG ORAL CAPSULE 500 MG PO ×3 (05:12→17:22)
[2023-04-28 06:00] VITALS: BP 117/54; PULSE 72; RESP 18; TEMP 36.8; O2SAT 99
[2023-04-28 07:38] LABS: Glucose Point of Care 122 mg/dl (65-105)
--- NOTE | 2023-04-28 08:28 | PM.IMPN ---
Progress Note: A&P Assessment and Plan (1) Urinary retention: Code(s): R33.9 - Retention of urine, unspecified Status: Acute (2) C. difficile colitis: Code(s): A04.72 - Enterocolitis due to Clostridium difficile, not specified as recurrent Status: Acute (3) Acute CHF (congestive heart failure): Qualifiers: Heart failure type: unspecified Qualified Code(s): I50.9 - Heart failure, unspecified Code(s): I50.9 - Heart failure, unspecified Status: Acute (4) Left-sided epistaxis: Code(s): R04.0 - Epistaxis Status: Acute (5) Sepsis: Code(s): A41.9 - Sepsis, unspecified organism Status: Acute Plan (1) Acute hypoxic respiratory failure: ?Code(s): J96.01 - Acute respiratory failure with hypoxia ?Status:?Acute ?Assessment and Plan: Secondary to acute on chronic diastolic CHF - BNP on admission 1500 w/ pulmonary edema and LE swelling. ? LE dopplers neg for DVT. ? Echo demonstrating EF 65-70%, on furosemide 40 mg po daily Control BP DC furosemide because of low blood pressure 04/27/23 Now patient is on room air (2) C. difficile colitis: ?Code(s): A04.72 - Enterocolitis due to Clostridium difficile, not specified as recurrent ?Status:?Acute ?Assessment and Plan: Patient with extensive number of stools 04/16 but improving now.? Continue to monitor stool output.? Continue current vancomycin dosing. Improving Continue Vancomycin 500 mg PO q 6 hr (start date 04/15/2023) for at least 10 days 04/27/23 add Flagyl p.o., patient's fever, 04/28/23: Patient is afebrile overnight (3) Acute CHF (congestive heart failure): ?Qualifiers: ?Heart failure type:?unspecified? Qualified Code(s):?I50.9 - Heart failure, unspecified ?Code(s): I50.9 - Heart failure, unspecified ?Status:?Acute ?Assessment and Plan: Acute on chronic diastolic CHF Patient was treated with a few doses of IV Lasix but has been on oral Lasix since 04/08/2023.? Clinically appears euvolemic. Continue metoprolol hold spironolactone and furosemide because of low blood pressure Renal function stable Increase activity as tolerated, continue current treatment (4) Elevated troponin: ?Code(s): R79.89 - Other specified abnormal findings of blood chemistry ?Status:?Acute ?Assessment and Plan: Patient typically becomes anxious and has SOB with chest pain Troponins are flat. Lexiscan done on 04/[address] segment depression but nuclear imaes showing no definitive ischemia or infarct with normal LVEF 70% The patient should follow up with cardiology as outpatient. The son prefers cardiology from [facility]. Pt already on metoprolol. Pt and son elected not to use aspirin due to high uric acid level and not to use statin given she has issues already with leg pain. Continue medical management 04/23/2023:? Repeat troponin normal at 0.14 (5) Hospital acquired PNA: ?Code(s): J18.9 - Pneumonia, unspecified organism; Y95 - Nosocomial condition ?Status:?Acute ?Assessment and Plan: Improving, repeat chest x-ray on 04/20/2023? is stable Meropenem started 04/20 and Levaqin started 04/2104/27/23 pt has fever, repeat CXR ;Linear opacities in bilateral lower lung zones and favor atelectasis/scarring over pneumonia. (6) Atrial fibrillation: ?Code(s): I48.91 - Unspecified atrial fibrillation ?Status:?Acute ?Assessment and Plan: Stable on current medication, will continue current treatment. Hold off on aspirin and Eliquis secondary to nasal bleeding Rate control only at this time Cardiology consulted for evaluation (7) Generalized weakness: ?Code(s): R53.1 - Weakness ?Status:?Acute ?Assessment and Plan: Patient with generalized weakness. Related to above. Continue PT and OT. (8) Insulin dependent type 2 diabetes mellitus: ?Code(s): E11.9 - Type 2 diabetes mellitus without complications; Z79.4 - Long ter
[2023-04-28 09:13] LABS: Basophils Absolute Auto 0.1 K/mm3 (0.0-0.1); Basophils Percent Auto 0.9 % (0.2-1.2); Eosinophils Absolute Auto 0.2 K/mm3 (0-0.3); Eosinophils Percent Auto 2.2 % (0-4.4); Hematocrit 29.5 % (37.0-47.0); Hemoglobin 8.9 g/dL (12.0-15.0); Immature Granulocyte Absolute 0.24 K/mm3 (0.00-0.031); Immature Granulocyte Percent A 2.3 % (0-0.5); Lymphocytes Absolute Auto 1.26 K/mm3 (0.9-3.2); Mean Corpuscular HGB Conc 30.2 g/dl (32-36); Mean Corpuscular Volume 99.3 fl (80-100); Mean Platelet Volume 9.7 fl (7.4-10.4); Monocytes Absolute Auto 0.9 K/mm3 (0.1-0.6); Monocytes Percent Auto 8.5 % (2.6-8.5); Neutrophils Absolute Auto 7.8 K/mm3 (1.3-6.7); Neutrophils Percent Auto 74.1 % (45.5-73.1); Platelet Count Result 242 k/mm3 (150-375); Red Blood Count 2.97 M/mm3 (4.2-5.4); Red Cell Distribution Width 15.6 % (11.5-14.5); White Blood Count 10.5 K/mm3 (4.5-10.0)
[2023-04-28 09:34] LABS: Anion Gap 5 mmol/L (8-16); Blood Urea Nitrogen 19 mg/dL (7-17); Calcium 8.2 mg/dL (8.4-10.2); Carbon Dioxide 29 mmol/L (22-30); Chloride 106 mmol/L (98-107); Estimated CRCL calculation 61 ml/min; Estimated Glomerular Filt Rate > 60; Glucose 129 mg/dL (65-110); Potassium 4.6 mmol/L (3.4-5.0); Sodium 140 mmol/L (137-145)
[2023-04-28] MEDS: PANTOPRAZOLE SODIUM IV 40 MG VIAL IV PUSH (09:35)
[2023-04-28] MEDS: ACETAMINOPHEN 500 MG TABLET 1000 MG PO ×2 (09:35→15:39)
[2023-04-28] MEDS: METOPROLOL TARTRATE 25 MG TABLET 125 MG PO ×2 (09:35→21:43)
[2023-04-28] MEDS: FEBUXOSTAT 40 MG TABLET PO (09:36)
[2023-04-28] MEDS: SACCHAROMYCES BOULARDII 250 MG CAPSULE PO ×2 (09:36→17:17)
[2023-04-28] MEDS: CYANOCOBALAMIN 1,000 MCG TABLET 3000 MCG PO (09:36)
[2023-04-28] MEDS: FLUCONAZOLE 100 MG TABLET 200 MG PO (09:36)
[2023-04-28] MEDS: TOLNAFTATE 1% POWDER 45 GM BTL 1 APPLIC TOPICAL ×2 (09:37→21:44)
[2023-04-28] MEDS: DICLOFENAC SODIUM 1% 100 GM GEL (*BKC) 1 APPLIC TOPICAL ×3 (09:39→21:44)
[2023-04-28] MEDS: INSULIN HUMAN ISOPHAN/REGULAR 70/30 (*BKC) 100 UNITS/ML 10 UNITS SUB-Q ×2 (09:47→12:40)
[2023-04-28 11:40] LABS: Glucose Point of Care 224 mg/dl (65-105)
[2023-04-28] MEDS: minoxidiL 2.5 MG TABLET 5 MG PO (12:40)
[2023-04-28] MEDS: INSULIN ASPART (*BKC) 100 UNITS/ML SUB-Q (12:45)
[2023-04-28 14:00] VITALS: BP 110/48; PULSE 70; RESP 22; TEMP 36.7; O2SAT 95
[2023-04-28] MEDS: SODIUM CHLORIDE 0.9% IV 1,000 ML 100 ML IV CONT (15:44)
[2023-04-28 16:42] LABS: Glucose Point of Care 85 mg/dl (65-105)
[2023-04-28 21:27] VITALS: BP 113/49; PULSE 66; RESP 16; TEMP 36.4; O2SAT 94
[2023-04-29] MEDS: VANCOMYCIN HCL 250 MG ORAL CAPSULE 500 MG PO ×4 (00:35→18:27)
[2023-04-29 06:00] VITALS: BP 141/61; PULSE 77; RESP 18; TEMP 36.6; O2SAT 97
[2023-04-29 06:15] LABS: Basophils Absolute Auto 0.1 K/mm3 (0.0-0.1); Basophils Percent Auto 0.8 % (0.2-1.2); Eosinophils Absolute Auto 0.4 K/mm3 (0-0.3); Eosinophils Percent Auto 3.6 % (0-4.4); Hematocrit 31.5 % (37.0-47.0); Hemoglobin 9.6 g/dL (12.0-15.0); Immature Granulocyte Absolute 0.16 K/mm3 (0.00-0.031); Immature Granulocyte Percent A 1.6 % (0-0.5); Lymphocytes Absolute Auto 1.36 K/mm3 (0.9-3.2); Lymphocytes Percent Auto 13.5 % (18.3-44.2); Mean Corpuscular HGB Conc 30.5 g/dl (32-36); Mean Corpuscular Hemoglobin 29.7 pg (26-34); Mean Corpuscular Volume 97.5 fl (80-100); Mean Platelet Volume 9.2 fl (7.4-10.4); Monocytes Absolute Auto 0.8 K/mm3 (0.1-0.6); Monocytes Percent Auto 7.4 % (2.6-8.5); Neutrophils Absolute Auto 7.4 K/mm3 (1.3-6.7); Neutrophils Percent Auto 73.1 % (45.5-73.1); Platelet Count Result 270 k/mm3 (150-375); Red Blood Count 3.23 M/mm3 (4.2-5.4); Red Cell Distribution Width 15.5 % (11.5-14.5); White Blood Count 10.1 K/mm3 (4.5-10.0)
[2023-04-29] MEDS: metroNIDAZOLE 500 MG TABLET PO ×3 (06:18→20:52)
[2023-04-29 06:28] LABS: Anion Gap 6 mmol/L (8-16); Blood Urea Nitrogen 11 mg/dL (7-17); Calcium 8.6 mg/dL (8.4-10.2); Carbon Dioxide 25 mmol/L (22-30); Chloride 109 mmol/L (98-107); Estimated CRCL calculation 72 ml/min; Estimated Glomerular Filt Rate > 60; Glucose 127 mg/dL (65-110); Potassium 4.3 mmol/L (3.4-5.0); Sodium 140 mmol/L (137-145)
[2023-04-29 07:39] LABS: Glucose Point of Care 150 mg/dl (65-105)
--- NOTE | 2023-04-29 09:03 | PM.IMPN ---
Progress Note: A&P Assessment and Plan (1) Urinary retention: Code(s): R33.9 - Retention of urine, unspecified Status: Acute (2) C. difficile colitis: Code(s): A04.72 - Enterocolitis due to Clostridium difficile, not specified as recurrent Status: Acute (3) Acute CHF (congestive heart failure): Qualifiers: Heart failure type: unspecified Qualified Code(s): I50.9 - Heart failure, unspecified Code(s): I50.9 - Heart failure, unspecified Status: Acute (4) Left-sided epistaxis: Code(s): R04.0 - Epistaxis Status: Acute (5) Sepsis: Code(s): A41.9 - Sepsis, unspecified organism Status: Acute Plan (1) Acute hypoxic respiratory failure: ?Code(s): J96.01 - Acute respiratory failure with hypoxia ?Status:?Acute ?Assessment and Plan: Secondary to acute on chronic diastolic CHF - BNP on admission 1500 w/ pulmonary edema and LE swelling. ? LE dopplers neg for DVT. ? Echo demonstrating EF 65-70%, on furosemide 40 mg po daily Control BP DC furosemide because of low blood pressure 04/27/23 Now patient is on room air (2) C. difficile colitis: ?Code(s): A04.72 - Enterocolitis due to Clostridium difficile, not specified as recurrent ?Status:?Acute ?Assessment and Plan: Patient with extensive number of stools 04/16 but improving now.? Continue to monitor stool output.? Continue current vancomycin dosing. Improving Continue Vancomycin 500 mg PO q 6 hr (start date 04/15/2023) for at 14 days 04/27/23 add Flagyl p.o., patient's fever, 04/28/23: Patient is afebrile overnight 04/29/23 patient is afebrile overnight, blood culture no growth so far, afeb for 2 days (3) Acute CHF (congestive heart failure): ?Qualifiers: ?Heart failure type:?unspecified? Qualified Code(s):?I50.9 - Heart failure, unspecified ?Code(s): I50.9 - Heart failure, unspecified ?Status:?Acute ?Assessment and Plan: Acute on chronic diastolic CHF Patient was treated with a few doses of IV Lasix but has been on oral Lasix since 04/08/2023.? Clinically appears euvolemic. Continue metoprolol hold spironolactone and furosemide because of low blood pressure Renal function stable Increase activity as tolerated, continue current treatment (4) Elevated troponin: ?Code(s): R79.89 - Other specified abnormal findings of blood chemistry ?Status:?Acute ?Assessment and Plan: Patient typically becomes anxious and has SOB with chest pain Troponins are flat. Lexiscan done on 04/[address] segment depression but nuclear imaes showing no definitive ischemia or infarct with normal LVEF 70% The patient should follow up with cardiology as outpatient. The son prefers cardiology from [facility]. Pt already on metoprolol. Pt and son elected not to use aspirin due to high uric acid level and not to use statin given she has issues already with leg pain. Continue medical management 04/23/2023:? Repeat troponin normal at 0.14 (5) Hospital acquired PNA: ?Code(s): J18.9 - Pneumonia, unspecified organism; Y95 - Nosocomial condition ?Status:?Acute ?Assessment and Plan: Improving, repeat chest x-ray on 04/20/2023? is stable Meropenem started 04/20 and Levaqin started 04/21, she has completed antibiotics treatment for pneumonia 04/27/23 pt has fever, repeat CXR ;Linear opacities in bilateral lower lung zones and favor atelectasis/scarring over pneumonia. (6) Atrial fibrillation: ?Code(s): I48.91 - Unspecified atrial fibrillation ?Status:?Acute ?Assessment and Plan: Stable on current medication, will continue current treatment. Hold off on aspirin and Eliquis secondary to nasal bleeding Rate control only at this time Cardiology consulted for evaluation Resume aspirin and Eliquis on discharge (7) Generalized weakness: ?Code(s): R53.1 - Weakness ?Status:?Acute ?Assessment and Plan: Patient with generalized weakness. R
[2023-04-29 09:25] LABS: Glucose Point of Care 140 mg/dl (65-105)
[2023-04-29] MEDS: CYANOCOBALAMIN 1,000 MCG TABLET 3000 MCG PO (09:32)
[2023-04-29] MEDS: SACCHAROMYCES BOULARDII 250 MG CAPSULE PO ×2 (09:32→18:27)
[2023-04-29] MEDS: FEBUXOSTAT 40 MG TABLET PO (09:32)
[2023-04-29] MEDS: ACETAMINOPHEN 500 MG TABLET 1000 MG PO (09:32)
[2023-04-29] MEDS: FLUCONAZOLE 100 MG TABLET 200 MG PO (09:32)
[2023-04-29] MEDS: METOPROLOL TARTRATE 25 MG TABLET 125 MG PO ×2 (09:33→20:52)
[2023-04-29] MEDS: PANTOPRAZOLE SODIUM IV 40 MG VIAL IV PUSH (09:33)
[2023-04-29] MEDS: INSULIN HUMAN ISOPHAN/REGULAR 70/30 (*BKC) 100 UNITS/ML 10 UNITS SUB-Q ×2 (09:33→13:39)
[2023-04-29] MEDS: DICLOFENAC SODIUM 1% 100 GM GEL (*BKC) 1 APPLIC TOPICAL (09:33)
[2023-04-29] MEDS: TOLNAFTATE 1% POWDER 45 GM BTL 1 APPLIC TOPICAL (09:34)
[2023-04-29] MEDS: SODIUM CHLORIDE 0.9% IV 1,000 ML 100 ML IV CONT (09:39)
[2023-04-29] MEDS: minoxidiL 2.5 MG TABLET 5 MG PO (13:41)
[2023-04-29 14:00] VITALS: BP 138/55; PULSE 66; RESP 18; TEMP 36.5; O2SAT 94
[2023-04-29 14:07] LABS: Glucose Point of Care 156 mg/dl (65-105)
--- NOTE | 2023-04-29 14:56 | PM.DS ---
DS: Admitting Diagnosis Discharge Date 04/29/23 Admitting Diagnosis (1) Urinary retention: ?Code(s): R33.9 - Retention of urine, unspecified ?Status:?Acute (2) C. difficile colitis: ?Code(s): A04.72 - Enterocolitis due to Clostridium difficile, not specified as recurrent ?Status:?Acute (3) Acute CHF (congestive heart failure): ?Qualifiers: ?Heart failure type:?unspecified? Qualified Code(s):?I50.9 - Heart failure, unspecified ?Code(s): I50.9 - Heart failure, unspecified ?Status:?Acute (4) Left-sided epistaxis: ?Code(s): R04.0 - Epistaxis ?Status:?Acute (5) Sepsis: ?Code(s): A41.9 - Sepsis, unspecified organism ?Status:?Acute DS: Discharge Diagnosis Discharge Diagnosis (1) Urinary retention: Code(s): R33.9 - Retention of urine, unspecified Status: Acute (2) C. difficile colitis: Code(s): A04.72 - Enterocolitis due to Clostridium difficile, not specified as recurrent Status: Acute (3) Acute CHF (congestive heart failure): Qualifiers: Heart failure type: unspecified Qualified Code(s): I50.9 - Heart failure, unspecified Code(s): I50.9 - Heart failure, unspecified Status: Acute (4) Left-sided epistaxis: Code(s): R04.0 - Epistaxis Status: Acute (5) Sepsis: Code(s): A41.9 - Sepsis, unspecified organism Status: Acute DS: Summary Hospital Course Hospital Course: 82-year-old female with past medical history significant for chronic systolic heart failure, type diabetes mellitus, gout, hypertension.? Patient was brought to the emergency room due to worsening bilateral lower extremity swelling, shortness of breath chest congestion cough, difficulty walking.? Patient denies any fevers, rigors, chills, nausea, vomiting, abdominal pain preliminary workup was significant for an elevated brain natriuretic peptide patient was rule out for COVID-19 influenza type A influenza type B and RSV a bilateral lower extremity venous Doppler was negative The following med issues have addressed during hospitalization (1) Acute hypoxic respiratory failure: ?Code(s): J96.01 - Acute respiratory failure with hypoxia ?Status:?Acute ?Assessment and Plan: Secondary to acute on chronic diastolic CHF - BNP on admission 1500 w/ pulmonary edema and LE swelling. ? LE dopplers neg for DVT. ? Echo demonstrating EF 65-70%, on furosemide 40 mg po daily Control BP DC furosemide because of low blood pressure 04/27/23 Now patient is on room air (2) C. difficile colitis: ?Code(s): A04.72 - Enterocolitis due to Clostridium difficile, not specified as recurrent ?Status:?Acute ?Assessment and Plan: Patient with extensive number of stools 04/16 but improving now.? Continue to monitor stool output.? Continue current vancomycin dosing. Improving Continue Vancomycin 500 mg PO q 6 hr (start date 04/15/2023) for at 14 days 04/27/23 add Flagyl p.o., patient's fever, 04/28/23: Patient is afebrile overnight 04/29/23 patient is afebrile overnight, blood culture no growth so far, afeb for 2 days (3) Acute CHF (congestive heart failure): ?Qualifiers: ?Heart failure type:?unspecified? Qualified Code(s):?I50.9 - Heart failure, unspecified ?Code(s): I50.9 - Heart failure, unspecified ?Status:?Acute ?Assessment and Plan: Acute on chronic diastolic CHF Patient was treated with a few doses of IV Lasix but has been on oral Lasix since 04/08/2023.? Clinically appears euvolemic. Continue metoprolol 125 mg b.i.d. p.o. hold spironolactone and furosemide because of low blood pressure Renal function stable Resume spironolactone and metolazone p.o. on discharge (4) Elevated troponin: ?Code(s): R79.89 - Other specified abnormal findings of blood chemistry ?Status:?Acute ?Assessment and Plan: Patient typically becomes anxious and has SOB with chest pain Troponins are flat. Lexisc
[2023-04-29 18:03] LABS: Glucose Point of Care 152 mg/dl (65-105)
[2023-04-29 20:24] LABS: Glucose Point of Care 122 mg/dl (65-105)
== END 2023-04-29 21:00 | DRG 291 ==
LOC: ANHED 19:50 → ANH3MED 22:00 → ANHIMU 04-04 07:53 → ANH3MEDSUR 04-08 19:30
PROVIDERS: Family Medicine; General Practice; Internal Medicine; Student in an Organized Health Care Education/Training Program; Admitting Provider Internal Medicine; Emergency Provider Physician Assistant; PCP Family Medicine Adolescent Medicine; Visit Provider Hospitalist
DX: I11.0 Hypertensive heart disease with heart failure (principal); A41.9 Sepsis, unspecified organism; I50.33 Acute on chronic diastolic (congestive) heart failure; J18.9 Pneumonia, unspecified organism; J96.01 Acute respiratory failure with hypoxia; A04.72 Enterocolitis due to Clostridium difficile, not specified as recurrent; B37.41 Candidal cystitis and urethritis; J44.0 Chronic obstructive pulmonary disease with (acute) lower respiratory infection; T50.4X5A Adverse effect of drugs affecting uric acid metabolism, initial encounter; E78.1 Pure hyperglyceridemia; E11.9 Type 2 diabetes mellitus without complications; E66.9 Obesity, unspecified; H35.3110 Nonexudative age-related macular degeneration, right eye, stage unspecified; H35.3222 Exudative age-related macular degeneration, left eye, with inactive choroidal neovascularization; I48.91 Unspecified atrial fibrillation; M10.9 Gout, unspecified; K21.9 Gastro-esophageal reflux disease without esophagitis; K76.0 Fatty (change of) liver, not elsewhere classified; N28.1 Cyst of kidney, acquired; R33.9 Retention of urine, unspecified; R04.0 Epistaxis; R26.2 Difficulty in walking, not elsewhere classified; Y95 Nosocomial condition; Z79.4 Long term (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 of insulin; Z88.0 Allergy status to penicillin; Z90.49 Acquired absence of other specified parts of digestive tract; Z87.891 Personal history of nicotine dependence; Z20.822 Contact with and (suspected) exposure to COVID-19; Z68.36 Body mass index [BMI] 36.0-36.9, adult; Z91.199 Patient's noncompliance with other medical treatment and regimen due to unspecified reason
CPT/HCPCS: 36415; 70450; 70551; 71045; 71046; 71260; 74170; 74176; 78452; 80048; 80053; 81001; 81003; 82140; 82607; 82746; 82948; 83735; 83880; 84100; 84145; 84443; 84484; 84550; 85014; 85018; 85025; 85027; 85610; 85730; 87040; 87081; 87086; 87088; 87106; 87449; 87493; 87637; 87641; 87899; 93005; 93017; 93970; 94640; 96374; 97110; 97161; 97164; 97165; 97166; 97530; 97535; 99285; A9270; A9502; C8929; C9113; G0378; J0360; J0692; J1120; J1815; J1940; J1956; J2060; J2185; J2550; J2785; J2930; J3370; J3480; J7030; J7050; Q9967

== ENCOUNTER 2023-05-06 12:40 | Inpatient (IN) | payer MEDICARE, SELFPAY ==
[2023-05-06] VITALS (16 sets, daily range): BP systolic 105–153; BP diastolic 44–72; PULSE 74–100; RESP 13–21; TEMP 36.8–36.9; O2SAT 88–100; BMI 22.1
--- NOTE | ~2023-05-06 | MR_ITS ---
MRI of the lumbar spine Clinical History: Pain Technique: Axial T2-weighted images, and sagittal T1-weighted, T2-weighted, and and T2 fat-sat images were acquired. Findings: Exam degraded by motion artifact, severe artifact in particular on the axial sequences. No fracture or subluxation evident in the lumbar spine. Atrial bodies maintain normal height and alignme nt. No suspicious bone marrow signal reality seen. At L1-L2, there is probable minimal disc bulge. No spinal canal stenosis or definite neural foraminal narrowing. At L2-L3, there is disc bulge. Possible minimal central canal stenosis. Neural foramina appear preser jesse. At L3-L4, there is disc bulge and facet arthropathy, probable mild central canal stenosis. There is p reservation of the neural foramina. At L4-L5, there is probable disc bulge and facet arthropathy, with minimal central canal stenosis. Ne ural foramina are preserved. At L5-S1, there is no definite disc bulge or herniation. No spinal canal stenosis or neural foraminal narrowing. Paravertebral soft tissues are grossly unremarkable. Impression: Significantly limited exam due to motion artifact, especially on the axial sequences. Probable mild s pondylosis as above. No fracture or subluxation seen. Reviewed, dictated and finalized at location . SHED HEATER TENDER Impression: Significantly limited exam due to motion artifact, especially on the axial sequ ences. Probable mild spondylosis as above. No fracture or subluxation seen.
--- NOTE | ~2023-05-06 | XR_ITS ---
XR chest 2V DATE: 05/06/2023 14:23 INDICATION: Shortness of breath TECHNIQUE: AP and lateral views COMPARISON: 04/27/2023 portable AP chest FINDINGS: There is cardiomegaly. There is extensive thoracic aortic calcification and mild unfolding. Abdominal aortic calcification. No hilar or mediastinal enlargement. Minimal infiltrate or atelectasis is suggested at the lung bases. The lungs otherwise appear clear of consolidation. No pleural effusion or pulmonary vascular congestion or pneumothorax. Diffuse osteopenia. Surgical clips, right upper quadrant, consistent with cholecystectomy. Bilateral chronic rotator cuff atrophy IMPRESSION: Cardiomegaly, aortic atherosclerosis Minimal infiltrate or atelectasis at the lung bases Reviewed, dictated and finalized at location B. UET KITCHEN SUPERVISOR
--- NOTE | ~2023-05-06 | XR_ITS ---
Portable chest x-ray Comparison: 05/06/2023 Clinical History: Shortness of breath Findings: Lungs are clear, without focal consolidation or pleural effusion. Cardiomediastinal silho uette is stable. Bones and soft tissues are unremarkable. Impression: Clear lungs. Reviewed, dictated and finalized at location . LS WEB APPLICATION DEVELOPER Impression: Clear lungs.
--- NOTE | 2023-05-06 12:45 | ECG_ITS ---
Measurements Intervals [place] Rate: 74 P: 31 CO: 141 QRS: -10 QRSD: 81 T: 52 QT: 362 QTc: 402 Interpretive Statements SINUS RHYTHM LOW QRS VOLTAGE IN PRECORDIAL LEADS VOLTAGE CRITERIA FOR LVH BORDERLINE R WAVE PROGRESSION, ANTERIOR LEADS BASELINE WANDER- I, II, III, AVR, AVL, AVF, V5 BORDERLINE ECG COMPARED TO ECG 04/23/2023 09:24:26 NO SIGNIFICANT CHANGES Electronically Signed On 05-06-2023 12:53:29 PHYSICAL THERAPY ASSISTANT INSTRUCTOR by Toib Jenkins D.O.
--- NOTE | 2023-05-06 13:09 | ED.SOB ---
HPI - SOB/Dyspnea General Chief Complaint: Shortness of Breath/Dyspnea Stated Complaint: SOB Time Seen by Provider: 05/06/23 12:43 Source: patient Mode of arrival: EMS Limitations: no limitations History of Present Illness HPI Narrative: 82-year-old female from [facility] with history of CHF presenting for shortness of breath leg swelling. She went back to her [facility] after being discharged and the swelling started getting worse again. Over the last few days she has been having some shortness of breath having worsening leg swelling. No chest pain. No other complaints Related Data Home Medications Medication Instructions Recorded Confirmed acetaminophen 500 mg tablet 1,000 mg PO Q6H PRN pain 1-3 04/02/23 04/02/23 (Tylenol Extra Strength) doxazosin 4 mg tablet 4 mg PO DAILY 04/02/23 04/02/23 Allergies Allergy/AdvReac Type Severity Reaction Status Date / Time Penicillins Allergy Severe HIVES Verified 05/06/23 12:46 hydrocodone AdvReac Severe SEVERE GI Verified 05/06/23 12:46 UPSET, N/V nitrofurantoin AdvReac Severe Swelling Verified 05/06/23 12:46 propoxyphene AdvReac Severe GI UPSET Verified 05/06/23 12:46 acetaminophen AdvReac Unknown Unknown Verified 05/06/23 12:46 [From Darvocet-N] adhesive tape AdvReac Unknown Unknown Verified 05/06/23 12:46 amlodipine AdvReac Unknown Unknown Verified 05/06/23 12:46 glimepiride AdvReac Unknown Unknown Verified 05/06/23 12:46 metformin AdvReac Unknown Unknown Verified 05/06/23 12:46 omeprazole [From Prilosec] AdvReac Unknown Unknown Verified 05/06/23 12:46 pioglitazone AdvReac Unknown Unknown Verified 05/06/23 12:46 simvastatin [From Zocor] AdvReac Unknown Unknown Verified 05/06/23 12:46 Review of Systems Review of Systems: All systems reviewed & are unremarkable except as noted in HPI and below (HPI) PMFSH Past Medical History Medical History Acquired hypertriglyceridemia Age related osteoporosis Aortic atherosclerosis Atrial fibrillation Exudative age-related macular degeneration, left eye, with inactive choroidal neovascularization Gastroesophageal reflux disease Gout Hepatic steatosis Hypertension 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, right eye, intermediate dry stage Overactive bladder Surgical History Surgical History History of cholecystectomy History of repair of rotator cuff Family History Family History Father Asthma Cerebrovascular accident Family history of diabetes mellitus in first degree relative Sibling Family history of diabetes mellitus in first degree relative Family history of malignant neoplasm of urinary bladder Mother Family history of heart disease in male family member before age 55 Other Family history of arthritis Hypertension Social History Social History Social History: Surrogate medical decision maker: Julio Ventura, son. Code status: Full code. Smoking packs per day: 1 Smoking cigarettes per day: 20.0 Years smoked: 15 Smoking pack-years: 15.00 Smoking status: Never smoker Tobacco type: cigarettes Second hand tobacco smoke exposure: Yes Alcohol intake: never Substance use: never Substance use type: does not use Do You Feel Safe in your Home?: Yes Lack of Transportation: No Lack of Food: Never True Current Housing: I Have Housing Concerned About Future Housing: No Difficulty Paying Gas/Electric Bills: No Difficulty Paying for Meds: No Currently Unemployed: No Education: High School Diploma/GED Difficulty w/ Childcare or Family Care: No Living arrangements: with family Additional living arrangements comments: Lives in [place]. Son Julio stays with her. 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
[2023-05-06] MEDS: IPRATROPIUM 0.5 MG/ALBUTEROL SULFATE 2.5 MG AMPUL.NEB 3 ML INHALATION (13:30)
[2023-05-06 13:57] LABS: Basophils Absolute Auto 0.1 K/mm3 (0.0-0.1); Eosinophils Absolute Auto 0.1 K/mm3 (0-0.3); Eosinophils Percent Auto 2.5 % (0-4.4); Hematocrit 31.5 % (37.0-47.0); Hemoglobin 9.3 g/dL (12.0-15.0); Immature Granulocyte Absolute 0.07 K/mm3 (0.00-0.031); Immature Granulocyte Percent A 1.5 % (0-0.5); Lymphocytes Absolute Auto 1.21 K/mm3 (0.9-3.2); Lymphocytes Percent Auto 25.3 % (18.3-44.2); Mean Corpuscular HGB Conc 29.5 g/dl (32-36); Mean Corpuscular Hemoglobin 29.8 pg (26-34); Mean Platelet Volume 9.3 fl (7.4-10.4); Monocytes Absolute Auto 0.5 K/mm3 (0.1-0.6); Monocytes Percent Auto 9.6 % (2.6-8.5); Neutrophils Absolute Auto 2.9 K/mm3 (1.3-6.7); Neutrophils Percent Auto 60.1 % (45.5-73.1); Platelet Count Result 256 k/mm3 (150-375); Red Blood Count 3.12 M/mm3 (4.2-5.4); Red Cell Distribution Width 16.2 % (11.5-14.5); White Blood Count 4.8 K/mm3 (4.5-10.0)
[2023-05-06] MEDS: FUROSEMIDE INJ 40 MG/4 ML VIAL IV PUSH (14:04)
[2023-05-06 14:18] LABS: Platelet Estimate Adequate (Adequate)
[2023-05-06 14:19] LABS: Alanine Aminotransferase 22 U/L (6-35); Albumin Level 2.8 g/dL (3.5-5.1); Alkaline Phosphatase 75 U/L (38-126); Anion Gap 5 mmol/L (8-16); Aspartate Amino Transferase 43 U/L (14-36); Bilirubin,Total 0.4 mg/dL (0.2-1.3); Blood Urea Nitrogen 9 mg/dL (7-17); Calcium 8.4 mg/dL (8.4-10.2); Carbon Dioxide 32 mmol/L (22-30); Chloride 102 mmol/L (98-107); Estimated Glomerular Filt Rate > 60; Glucose 108 mg/dL (65-110); Potassium 3.9 mmol/L (3.4-5.0); Sodium 139 mmol/L (137-145)
[2023-05-06 14:21] LABS: Schistocytes None Seen (NORMAL)
[2023-05-06 14:22] LABS: Anisocytosis 2+ (NORMAL); Hypochromasia 1+ (NORMAL)
[2023-05-06 14:23] LABS: Influenza A QL RT-PCR Positive (Negative); Influenza B QL RT-PCR Negative (Negative); RSV RNA, RT-PCR Negative (Negative); SARS-CoV-2 RNA PCR Negative (Negative)
[2023-05-06 14:29] LABS: NT Pro B Type Natriuretic Pept 436 pg/mL (19.9-100); Troponin I < 0.012 ng/mL (0.000-0.034)
--- NOTE | 2023-05-06 16:55 | PC.NURSE ---
Dinner tray ordered for pt
--- NOTE | 2023-05-06 17:17 | PC.NURSE ---
RN taking pt going to [facility] had no questions
--- NOTE | 2023-05-06 21:21 | PM.IMHP ---
H&P: HPI History of Present Illness Date/Time: 05/06/23 17:30 Chief Complaint: Shortness of breath. Narrative: This is a pleasant 82-year-old female with insulin-dependent diabetes mellitus, hypertension, hyperlipidemia, gastroesophageal reflux disease, gout, overactive bladder, hepatic steatosis, and macular degeneration who presented to the emergency department via EMS from a local rehab facility for evaluation of shortness of breath. The patient provides the following history; her son Julio provides additional information with the patient's permission. She is known to the hospitalist service from a recent lengthy stay in which she was treated for multiple problems including diastolic congestive heart failure, urinary retention, and C diff colitis. Two months prior to her hospitalization she was up ambulating without issue however she began to have difficulties walking due to severe pain in both feet which has been an ongoing at worsening problems for nearly the last year. She was treated for gout with the usual medications however was ultimately started on steroids due to minimal relief. This steroids caused her to gain a significant amount of weight and it got to the point where she could barely put any weight on her feet after they were stopped. She is an insulin-dependent diabetic and it was suspected that perhaps the pain in her feet was related to neuropathy from the same however she was unable to tolerate gabapentin as a caused her confusion. She does have issues with low back pain and what sounds like sciatic on occasion though this is not new. In any event, she was discharged to rehab on 04/29/2023 in hopes that she may be able to the walk again and go home. In any regard, staff at the rehab facility that she appeared short of breath today and she was reportedly hypoxic and was sent in for evaluation. She was afebrile on arrival. She is currently on 2 L nasal cannula with an SpO2 of 100%. Labs were significant for a stable anemia, proBNP 436, albumin 2.8. She tested positive for influenza A. Chest x-ray showed cardiomegaly with minimal infiltrate or atelectasis at the lung base. She is being admitted in this setting for supportive care given hypoxia and influenza. Review of Systems Review of Systems: Twelve systems were reviewed. No fever. No sinus congestion or sore throat. She has a productive cough of clear phlegm. No chest or pleuritic pain. She denies vomiting and diarrhea. Except as documented, all other systems were reviewed and are negative. [facility] Past Medical History Medical History (Updated 05/06/23 @ 21:34 by Joyce Robison PA-C) Acquired hypertriglyceridemia Age related osteoporosis Aortic atherosclerosis Atrial fibrillation Chronic anticoagulation Exudative age-related macular degeneration, left eye, with inactive choroidal neovascularization Gastroesophageal reflux disease Gout Hepatic steatosis Hypertension 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, right eye, intermediate dry stage Overactive bladder Surgical History Surgical History History of cholecystectomy History of repair of rotator cuff Family History Family History Father Asthma Cerebrovascular accident Family history of diabetes mellitus in first degree relative Sibling Family history of diabetes mellitus in first degree relative Family history of malignant neoplasm of urinary bladder Mother Family history of heart disease in male family member before age 55 Other Family history of arthritis Hypertension Social History Social History Social History: Surrogate medical decision maker: Julio Ventura, son. Code status: Full code. Smoking packs per day: 1 Smoking cigarettes per day: 20.0 Years smoked: 15 Smokin
[2023-05-06 22:52] LABS: Iron 41 ug/dL (37-170)
[2023-05-06 23:01] LABS: Percent Iron Saturation 21 % (20-50)
[2023-05-06] MEDS: OSELTAMIVIR PHOSPHATE 30 MG CAPSULE PO (23:03)
[2023-05-06] MEDS: APIXABAN 5 MG TABLET PO (23:04)
[2023-05-06] MEDS: ACETAMINOPHEN 500 MG TABLET 1000 MG PO (23:04)
[2023-05-06] MEDS: METOPROLOL TARTRATE 25 MG TABLET 125 MG PO (23:05)
[2023-05-07] VITALS (10 sets, daily range): BP systolic 117–156; BP diastolic 54–71; PULSE 62–81; RESP 16–20; TEMP 36.2–37; O2SAT 96–99
[2023-05-07 00:55] LABS: Folic Acid 15.9 ng/mL (2.76->20); Vitamin B12 > 1000.0 pg/mL (239-931)
[2023-05-07 06:42] LABS: Hematocrit 27.5 % (37.0-47.0); Hemoglobin 8.1 g/dL (12.0-15.0); Mean Corpuscular HGB Conc 29.5 g/dl (32-36); Mean Corpuscular Hemoglobin 29.5 pg (26-34); Mean Platelet Volume 9.4 fl (7.4-10.4); Platelet Count Result 242 k/mm3 (150-375); Red Blood Count 2.75 M/mm3 (4.2-5.4); Red Cell Distribution Width 16.6 % (11.5-14.5); White Blood Count 4.5 K/mm3 (4.5-10.0)
[2023-05-07 07:02] LABS: Anion Gap 4 mmol/L (8-16); Blood Urea Nitrogen 9 mg/dL (7-17); Calcium 8.1 mg/dL (8.4-10.2); Carbon Dioxide 35 mmol/L (22-30); Chloride 99 mmol/L (98-107); Estimated CRCL calculation 59 ml/min; Estimated Glomerular Filt Rate > 60; Glucose 154 mg/dL (65-110); Magnesium 1.2 mg/dL (1.6-2.3); Potassium 4.2 mmol/L (3.4-5.0); Sodium 138 mmol/L (137-145)
[2023-05-07 07:56] LABS: Glucose Point of Care 159 mg/dl (65-105)
[2023-05-07] MEDS: SPIRONOLACTONE 25 MG TABLET PO (08:15)
[2023-05-07] MEDS: OSELTAMIVIR PHOSPHATE 30 MG CAPSULE PO ×2 (08:15→21:15)
[2023-05-07] MEDS: APIXABAN 5 MG TABLET PO ×2 (08:15→21:15)
[2023-05-07] MEDS: PANTOPRAZOLE 40 MG TABLET PO (08:15)
[2023-05-07] MEDS: DOXAZOSIN MESYLATE 4 MG TABLET PO (08:16)
[2023-05-07] MEDS: lisinopriL 20 MG TABLET PO ×2 (08:16→17:33)
[2023-05-07] MEDS: METOPROLOL TARTRATE 25 MG TABLET 125 MG PO ×2 (08:16→21:15)
--- NOTE | 2023-05-07 11:40 | PM.IMPN ---
Progress Note: A&P Assessment and Plan (1) Influenza A: Code(s): J10.1 - Influenza due to other identified influenza virus with other respiratory manifestations Status: Acute (2) Hypoxia: Code(s): R09.02 - Hypoxemia Status: Acute (3) Macrocytic anemia: Code(s): D53.9 - Nutritional anemia, unspecified Status: Acute (4) Neuropathy: Code(s): G62.9 - Polyneuropathy, unspecified Status: Acute (5) Protein calorie malnutrition: Code(s): E46 - Unspecified protein-calorie malnutrition Status: Acute (6) Diastolic congestive heart failure: Code(s): I50.30 - Unspecified diastolic (congestive) heart failure Status: Acute (7) Chronic anticoagulation: Code(s): Z79.01 - intermediate designer (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 of anticoagulants Status: Acute (8) Hypertension: Code(s): I10 - Essential (primary) hypertension Status: Chronic Plan 82-year-old female from [facility] discharged recently on 04/29/2023 presented with shortness of breath leg swelling. No chest pain. She was hypoxic at about 88% on room air was placed on oxygen via nasal cannula. She is noted to have expiratory wheezing. Fluid overload and CHF was suspected. She also has underlying COPD. Breathing treatment IV Lasix was performed in the ER. She tested positive for influenza A. BNP was elevated at 436 troponins negative COVID and RSV is negative. Chest x-ray showed cardiomegaly with minimal infiltrate or atelectasis at the lung base. WBC count is normal at 4.8 chronic anemia acute on chronic no signs of bleeding monitor iron profile suggestive of anemia chronic disease B12 normal folate normal TSH normal Acute on chronic diastolic congestive heart failure recent echo EF 65-70% was on Lasix daily but was discontinued at discharge. Lexiscan done 04/07/2023 with no definitive ischemia or infarct. Will resume oral Lasix Atrial fibrillation on metoprolol and Eliquis Recent C diff colitis completed treatment Influenza a Tamiflu Insulin-dependent diabetes mellitus Hypertension Hyperlipidemia GERD Gout Overactive bladder Hepatic steatosis Macular degeneration Peripheral neuropathy DVT prophylaxis on Eliquis Subjective Date/time seen: 05/07/23 11:40 Interval history: 82-year-old female from [facility] discharged recently on 04/29/2023 presented with shortness of breath leg swelling. No chest pain. She was hypoxic at about 88% on room air was placed on oxygen via nasal cannula. She is noted to have expiratory wheezing. Fluid overload and CHF was suspected. She also has underlying COPD. Breathing treatment IV Lasix was performed in the ER. She tested positive for influenza A. BNP was elevated at 436 troponins negative COVID and RSV is negative. Chest x-ray showed cardiomegaly with minimal infiltrate or atelectasis at the lung base. WBC count is normal at 4.8 chronic anemia acute on chronic no signs of bleeding monitor iron profile suggestive of anemia chronic disease B12 normal folate normal TSH normal Acute on chronic diastolic congestive heart failure recent echo EF 65-70% was on Lasix daily but was discontinued at discharge. Lexiscan done 04/07/2023 with no definitive ischemia or infarct Atrial fibrillation on metoprolol and Eliquis Recent C diff colitis completed treatment Influenza a Tamiflu Insulin-dependent diabetes mellitus Hypertension Hyperlipidemia GERD Gout Overactive bladder Hepatic steatosis Macular degeneration Peripheral neuropathy Review of Systems Review of Systems: All systems reviewed & are unremarkable except as noted in HPI and below Exam Narrative: General:?Mildly ill-appearing female not in acute distress HEENT:??Normocephalic, atraumatic. Pupils are reactive. Mild periorbital edema bilaterally. Extraocular motions intact. Tacky mucous membranes. Neck:??Supple. No JVD or lymphadenopathy. Respiratory:?Respirations are nonlabored. Coarse lung sounds w
[2023-05-07 12:18] LABS: Glucose Point of Care 211 mg/dl (65-105)
[2023-05-07] MEDS: metOLazone 2.5 MG TABLET PO (12:28)
[2023-05-07] MEDS: minoxidiL 2.5 MG TABLET 5 MG PO (12:28)
[2023-05-07] MEDS: INSULIN ASPART (*BKC) 100 UNITS/ML SUB-Q (12:28)
[2023-05-07] MEDS: INSULIN HUMAN ISOPHAN/REGULAR 70/30 (*BKC) 100 UNITS/ML SUB-Q ×2 (12:28→17:33)
[2023-05-07] MEDS: FUROSEMIDE 40 MG TABLET PO (12:28)
[2023-05-07] MEDS: ALBUTEROL SULFATE (*SP) AEROSOL 1 PUFF 2 PUFF INHALATION ×2 (12:41→20:16)
--- NOTE | 2023-05-07 14:45 | PC.NURSE ---
Addendum entered by Tatum Eason RN 05/08/23 11:13: NIGHT NURSE WHO REMOVED LEE CATHETER WAS FOLLOWING PROVIDER ORDER AND UNAWARE OF PT HISTORY. PT WAS RETAINING AND DID NOT URINATE WITHIN 6 HOURS. BLADDER SCAN SHOWED MORE THAN 800mL in PT'S BLADDER. CURRENT HOSPITALS NOTIFIED OF PT'S STATUS AND LEE CATHETER PLACED ON 03/07/24 AT APPROXIMATELY 1500 FOR CHRONIC AND CONTINUED URINARY RETENTION. Original Note: PT HAS CHRONIC URINARY RETENTION. PT WAS DISCHARGED WITH LEE CATHETER LAST WEEK DUE TO CHRONIC URINARY RETENTION. PT WAS READMITTED THROUGH ER WITH LEE CATHETER INPLACE DUE TO CONTINUED URINARY RETENTION. LEE CATHETER WAS REMOVED DISREGARDING PT'S HISTORY.
[2023-05-07 16:39] LABS: Glucose Point of Care 190 mg/dl (65-105)
[2023-05-07] MEDS: ACETAMINOPHEN 500 MG TABLET 1000 MG PO (21:20)
[2023-05-07 21:59] LABS: Glucose Point of Care 199 mg/dl (65-105)
[2023-05-08] VITALS (11 sets, daily range): BP systolic 120–136; BP diastolic 53–77; PULSE 57–97; RESP 16–22; TEMP 36.4–37.2; O2SAT 92–100
[2023-05-08 06:20] LABS: Basophils Percent Auto 0.6 % (0.2-1.2); Eosinophils Absolute Auto 0.2 K/mm3 (0-0.3); Eosinophils Percent Auto 3.5 % (0-4.4); Hematocrit 27.2 % (37.0-47.0); Hemoglobin 8.1 g/dL (12.0-15.0); Immature Granulocyte Percent A 2.1 % (0-0.5); Lymphocytes Percent Auto 28.9 % (18.3-44.2); Mean Corpuscular HGB Conc 29.8 g/dl (32-36); Mean Corpuscular Hemoglobin 29.8 pg (26-34); Mean Platelet Volume 9.6 fl (7.4-10.4); Monocytes Absolute Auto 0.5 K/mm3 (0.1-0.6); Monocytes Percent Auto 9.7 % (2.6-8.5); Neutrophils Absolute Auto 2.7 K/mm3 (1.3-6.7); Neutrophils Percent Auto 55.2 % (45.5-73.1); Platelet Count Result 245 k/mm3 (150-375); Red Blood Count 2.72 M/mm3 (4.2-5.4); Red Cell Distribution Width 16.4 % (11.5-14.5); White Blood Count 4.8 K/mm3 (4.5-10.0)
[2023-05-08 06:32] LABS: Alanine Aminotransferase 16 U/L (6-35); Albumin Level 2.4 g/dL (3.5-5.1); Alkaline Phosphatase 68 U/L (38-126); Anion Gap 2 mmol/L (8-16); Aspartate Amino Transferase 24 U/L (14-36); Bilirubin,Total 0.3 mg/dL (0.2-1.3); Blood Urea Nitrogen 12 mg/dL (7-17); Carbon Dioxide 39 mmol/L (22-30); Chloride 98 mmol/L (98-107); Estimated CRCL calculation 56 ml/min; Estimated Glomerular Filt Rate 60; Glucose 151 mg/dL (65-110); Magnesium 1.1 mg/dL (1.6-2.3); Sodium 139 mmol/L (137-145)
[2023-05-08 06:48] LABS: Anisocytosis 1+ (NORMAL); Hypochromasia 1+ (NORMAL); Platelet Estimate Adequate (Adequate); Schistocytes None Seen (NORMAL)
[2023-05-08 07:58] LABS: Glucose Point of Care 151 mg/dl (65-105)
[2023-05-08] MEDS: INSULIN HUMAN ISOPHAN/REGULAR 70/30 (*BKC) 100 UNITS/ML SUB-Q ×2 (08:41→17:19)
[2023-05-08] MEDS: lisinopriL 20 MG TABLET PO ×2 (08:43→17:19)
[2023-05-08] MEDS: APIXABAN 5 MG TABLET PO ×2 (08:43→20:51)
[2023-05-08] MEDS: SPIRONOLACTONE 25 MG TABLET PO (08:43)
[2023-05-08] MEDS: DOXAZOSIN MESYLATE 4 MG TABLET PO (08:43)
[2023-05-08] MEDS: FUROSEMIDE 40 MG TABLET PO (08:44)
[2023-05-08] MEDS: METOPROLOL TARTRATE 25 MG TABLET 125 MG PO ×2 (08:44→20:51)
[2023-05-08] MEDS: OSELTAMIVIR PHOSPHATE 30 MG CAPSULE PO ×2 (08:44→20:51)
[2023-05-08] MEDS: PANTOPRAZOLE 40 MG TABLET PO (08:44)
[2023-05-08] MEDS: MAGNESIUM SULF 2 GM/WATER 50ML 2 GM/50 ML BAG IVPB (09:37)
[2023-05-08] MEDS: LORazepam INJ (*CRX) 2 MG/ML VIAL 0.5 MG IV PUSH (10:28)
[2023-05-08 11:52] LABS: Glucose Point of Care 152 mg/dl (65-105)
--- NOTE | 2023-05-08 11:56 | PM.IMPN ---
Progress Note: A&P Assessment and Plan (1) Influenza A: Code(s): J10.1 - Influenza due to other identified influenza virus with other respiratory manifestations Status: Acute (2) Hypoxia: Code(s): R09.02 - Hypoxemia Status: Acute (3) Macrocytic anemia: Code(s): D53.9 - Nutritional anemia, unspecified Status: Acute (4) Neuropathy: Code(s): G62.9 - Polyneuropathy, unspecified Status: Acute (5) Protein calorie malnutrition: Code(s): E46 - Unspecified protein-calorie malnutrition Status: Acute (6) Diastolic congestive heart failure: Code(s): I50.30 - Unspecified diastolic (congestive) heart failure Status: Acute (7) Chronic anticoagulation: Code(s): Z79.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 No chest pain. She was hypoxic at about 88% on room air was placed on oxygen via nasal cannula. She is noted to have expiratory wheezing. Fluid overload and CHF was suspected. She also has underlying COPD. Breathing treatment IV Lasix was performed in the ER. She tested positive for influenza A. BNP was elevated at 436 troponins negative COVID and RSV is negative. Chest x-ray showed cardiomegaly with minimal infiltrate or atelectasis at the lung base. WBC count is normal at 4.8 chronic anemia acute on chronic no signs of bleeding monitor iron profile suggestive of anemia chronic disease B12 normal folate normal TSH normal Acute on chronic diastolic congestive heart failure recent echo EF 65-70% was on Lasix daily but was discontinued at discharge. Lexiscan done 04/07/2023 with no definitive ischemia or infarct. Resumed oral Lasix 40 mg daily Atrial fibrillation on metoprolol and Eliquis Recent C diff colitis completed treatment Influenza a Tamiflu Insulin-dependent diabetes mellitus Hypertension Hyperlipidemia GERD Gout Overactive bladder Hepatic steatosis Macular degeneration Peripheral neuropathy MRI will be performed today DVT prophylaxis on Eliquis Subjective Date/time seen: 05/08/23 11:56 Interval history: 82-year-old female from retirement discharged recently on 04/29/2023 presented with shortness of breath leg swelling. No chest pain. She was hypoxic at about 88% on room air was placed on oxygen via nasal cannula. She is noted to have expiratory wheezing. Fluid overload and CHF was suspected. She also has underlying COPD. Breathing treatment IV Lasix was performed in the ER. She tested positive for influenza A. BNP was elevated at 436 troponins negative COVID and RSV is negative. Chest x-ray showed cardiomegaly with minimal infiltrate or atelectasis at the lung base. WBC count is normal at 4.8 chronic anemia acute on chronic no signs of bleeding monitor iron profile suggestive of anemia chronic disease B12 normal folate normal TSH normal Acute on chronic diastolic congestive heart failure recent echo EF 65-70% was on Lasix daily but was discontinued at discharge. Lexiscan done 04/07/2023 with no definitive ischemia or infarct Atrial fibrillation on metoprolol and Eliquis Recent C diff colitis completed treatment Influenza a Tamiflu Insulin-dependent diabetes mellitus Hypertension Hyperlipidemia GERD Gout Overactive bladder Hepatic steatosis Macular degeneration Peripheral neuropathy 05/08/2023: No overnight events. Had urinary retention Mcallister placed back. No chest pain no fevers no chills Review of Systems Review of Systems: All systems reviewed & are unremarkable except as noted in HPI and below Exam Narrative: General:?Mildly ill-appearing female not in acute distress HEENT:??Normocephalic, atraumatic. Pupils are reactive. Mild periorbital edema bilaterally. Extraocular
[2023-05-08] MEDS: minoxidiL 2.5 MG TABLET 5 MG PO (12:33)
[2023-05-08] MEDS: metOLazone 2.5 MG TABLET PO (12:34)
[2023-05-08 17:04] LABS: Glucose Point of Care 154 mg/dl (65-105)
[2023-05-08 20:38] LABS: Glucose Point of Care 88 mg/dl (65-105)
[2023-05-08] MEDS: ACETAMINOPHEN 500 MG TABLET 1000 MG PO (20:54)
[2023-05-09] VITALS (9 sets, daily range): BP systolic 100–138; BP diastolic 35–66; PULSE 57–72; RESP 16–20; TEMP 35.7–36.8; O2SAT 95–100; BMI 22.3
[2023-05-09 07:28] LABS: Glucose Point of Care 110 mg/dl (65-105)
[2023-05-09] MEDS: ACETAMINOPHEN 500 MG TABLET 1000 MG PO (09:59)
[2023-05-09] MEDS: DOXAZOSIN MESYLATE 4 MG TABLET PO (10:00)
[2023-05-09] MEDS: METOPROLOL TARTRATE 25 MG TABLET 125 MG PO ×2 (10:00→20:46)
[2023-05-09] MEDS: SPIRONOLACTONE 25 MG TABLET PO (10:01)
[2023-05-09] MEDS: FUROSEMIDE 40 MG TABLET PO (10:01)
[2023-05-09] MEDS: PANTOPRAZOLE 40 MG TABLET PO (10:01)
[2023-05-09] MEDS: OSELTAMIVIR PHOSPHATE 30 MG CAPSULE PO ×2 (10:01→20:46)
[2023-05-09] MEDS: ASPIRIN 81 MG CHEWABLE TABLET PO (10:01)
[2023-05-09] MEDS: lisinopriL 20 MG TABLET PO ×2 (10:01→17:36)
[2023-05-09] MEDS: APIXABAN 5 MG TABLET PO ×2 (10:01→20:46)
[2023-05-09] MEDS: INSULIN HUMAN ISOPHAN/REGULAR 70/30 (*BKC) 100 UNITS/ML SUB-Q ×3 (10:02→17:35)
[2023-05-09 11:03] LABS: Basophils Absolute Auto 0.1 K/mm3 (0.0-0.1); Basophils Percent Auto 0.8 % (0.2-1.2); Eosinophils Absolute Auto 0.2 K/mm3 (0-0.3); Eosinophils Percent Auto 2.6 % (0-4.4); Hematocrit 30.4 % (37.0-47.0); Hemoglobin 9.2 g/dL (12.0-15.0); Immature Granulocyte Absolute 0.12 K/mm3 (0.00-0.031); Immature Granulocyte Percent A 1.6 % (0-0.5); Lymphocytes Absolute Auto 1.44 K/mm3 (0.9-3.2); Lymphocytes Percent Auto 18.7 % (18.3-44.2); Mean Corpuscular HGB Conc 30.3 g/dl (32-36); Mean Corpuscular Hemoglobin 29.7 pg (26-34); Mean Corpuscular Volume 98.1 fl (80-100); Mean Platelet Volume 9.3 fl (7.4-10.4); Monocytes Absolute Auto 0.5 K/mm3 (0.1-0.6); Monocytes Percent Auto 6.8 % (2.6-8.5); Neutrophils Absolute Auto 5.4 K/mm3 (1.3-6.7); Neutrophils Percent Auto 69.5 % (45.5-73.1); Platelet Count Result 255 k/mm3 (150-375); Red Cell Distribution Width 16.4 % (11.5-14.5); White Blood Count 7.7 K/mm3 (4.5-10.0)
[2023-05-09 11:15] LABS: Blood Urea Nitrogen 18 mg/dL (7-17); Calcium 8.5 mg/dL (8.4-10.2); Carbon Dioxide > 40 mmol/L (22-30); Chloride 96 mmol/L (98-107); Estimated CRCL calculation 34 ml/min; Estimated Glomerular Filt Rate 60; Glucose 168 mg/dL (65-110); Magnesium 1.3 mg/dL (1.6-2.3); Potassium 4.4 mmol/L (3.4-5.0); Sodium 139 mmol/L (137-145)
[2023-05-09 11:27] LABS: Glucose Point of Care 179 mg/dl (65-105)
[2023-05-09] MEDS: minoxidiL 2.5 MG TABLET 5 MG PO (12:25)
[2023-05-09] MEDS: metOLazone 2.5 MG TABLET PO (12:25)
--- NOTE | 2023-05-09 14:11 | PM.IMPN ---
Progress Note: A&P Assessment and Plan (1) Influenza A: Code(s): J10.1 - Influenza due to other identified influenza virus with other respiratory manifestations Status: Acute (2) Hypoxia: Code(s): R09.02 - Hypoxemia Status: Acute (3) Macrocytic anemia: Code(s): D53.9 - Nutritional anemia, unspecified Status: Acute (4) Neuropathy: Code(s): G62.9 - Polyneuropathy, unspecified Status: Acute (5) Protein calorie malnutrition: Code(s): E46 - Unspecified protein-calorie malnutrition Status: Acute (6) Diastolic congestive heart failure: Code(s): I50.30 - Unspecified diastolic (congestive) heart failure Status: Acute (7) Chronic anticoagulation: Code(s): Z79.01 - 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 No chest pain. She was hypoxic at about 88% on room air was placed on oxygen via nasal cannula. She is noted to have expiratory wheezing. Fluid overload and CHF was suspected. She also has underlying COPD. Breathing treatment IV Lasix was performed in the ER. She tested positive for influenza A. BNP was elevated at 436 troponins negative COVID and RSV is negative. Chest x-ray showed cardiomegaly with minimal infiltrate or atelectasis at the lung base. WBC count is normal at 4.8 chronic anemia acute on chronic no signs of bleeding monitor iron profile suggestive of anemia chronic disease B12 normal folate normal TSH normal Acute on chronic diastolic congestive heart failure recent echo EF 65-70% was on Lasix daily but was discontinued at discharge. Lexiscan done 04/07/2023 with no definitive ischemia or infarct. Resumed oral Lasix 40 mg daily Atrial fibrillation on metoprolol and Eliquis Recent C diff colitis completed treatment Influenza a Tamiflu Insulin-dependent diabetes mellitus Hypertension Hyperlipidemia GERD Gout Overactive bladder Hepatic steatosis Macular degeneration Peripheral neuropathy MRI reviewed as facet arthritis no significant canal stenosis. Has tried gabapentin which led to confusion. Discuss other options for peripheral neuropathy as includes Lyrica versus duloxetine. Agreeable to the trial. Will start duloxetine 20 mg daily opiates benzodiazepines has caused her to be sleepy and has not tolerated in the past. Prednisone has also made her gain weight gain to eventually getting off that medication DVT prophylaxis on Eliquis Subjective Date/time seen: 05/09/23 14:11 Interval history: 82-year-old female from [facility] living discharged recently on 04/29/2023 presented with shortness of breath leg swelling. No chest pain. She was hypoxic at about 88% on room air was placed on oxygen via nasal cannula. She is noted to have expiratory wheezing. Fluid overload and CHF was suspected. She also has underlying COPD. Breathing treatment IV Lasix was performed in the ER. She tested positive for influenza A. BNP was elevated at 436 troponins negative COVID and RSV is negative. Chest x-ray showed cardiomegaly with minimal infiltrate or atelectasis at the lung base. WBC count is normal at 4.8 chronic anemia acute on chronic no signs of bleeding monitor iron profile suggestive of anemia chronic disease B12 normal folate normal TSH normal Acute on chronic diastolic congestive heart failure recent echo EF 65-70% was on Lasix daily but was discontinued at discharge. Lexiscan done 04/07/2023 with no definitive ischemia or infarct Atrial fibrillation on metoprolol and Eliquis Recent C diff colitis completed treatment Influenza a Tamiflu Insulin-dependent diabetes mellitus Hypertension Hyperlipidemia GERD Gout Overactive bladder Hepatic steatosis Macular degeneration Peripheral neuropathy 05/08/19
[2023-05-09 16:29] LABS: Glucose Point of Care 162 mg/dl (65-105)
[2023-05-09] MEDS: DULoxetine HCL 20 MG CAPSULE.DR PO (17:36)
[2023-05-09] MEDS: MAGNESIUM SULF 2 GM/WATER 50ML 2 GM/50 ML BAG IVPB (17:42)
[2023-05-09 21:31] LABS: Glucose Point of Care 129 mg/dl (65-105)
[2023-05-10] VITALS (9 sets, daily range): BP systolic 82–134; BP diastolic 40–64; PULSE 63–73; RESP 10–20; TEMP 36.2–36.8; O2SAT 88–100
[2023-05-10 07:08] LABS: Basophils Percent Auto 0.6 % (0.2-1.2); Eosinophils Absolute Auto 0.2 K/mm3 (0-0.3); Eosinophils Percent Auto 3.6 % (0-4.4); Hematocrit 28.9 % (37.0-47.0); Hemoglobin 8.5 g/dL (12.0-15.0); Immature Granulocyte Absolute 0.11 K/mm3 (0.00-0.031); Immature Granulocyte Percent A 1.6 % (0-0.5); Lymphocytes Absolute Auto 1.36 K/mm3 (0.9-3.2); Lymphocytes Percent Auto 20.1 % (18.3-44.2); Mean Corpuscular HGB Conc 29.4 g/dl (32-36); Mean Corpuscular Hemoglobin 29.5 pg (26-34); Mean Corpuscular Volume 100.3 fl (80-100); Mean Platelet Volume 9.8 fl (7.4-10.4); Monocytes Absolute Auto 0.6 K/mm3 (0.1-0.6); Monocytes Percent Auto 8.4 % (2.6-8.5); Neutrophils Absolute Auto 4.4 K/mm3 (1.3-6.7); Neutrophils Percent Auto 65.7 % (45.5-73.1); Platelet Count Result 258 k/mm3 (150-375); Red Blood Count 2.88 M/mm3 (4.2-5.4); Red Cell Distribution Width 16.3 % (11.5-14.5); White Blood Count 6.8 K/mm3 (4.5-10.0)
[2023-05-10 07:31] LABS: Alanine Aminotransferase 14 U/L (6-35); Albumin Level 2.8 g/dL (3.5-5.1); Alkaline Phosphatase 74 U/L (38-126); Aspartate Amino Transferase 21 U/L (14-36); Bilirubin,Total 0.6 mg/dL (0.2-1.3); Blood Urea Nitrogen 25 mg/dL (7-17); Calcium 8.3 mg/dL (8.4-10.2); Carbon Dioxide > 40 mmol/L (22-30); Chloride 95 mmol/L (98-107); Estimated CRCL calculation 31 ml/min; Estimated Glomerular Filt Rate 53; Glucose 100 mg/dL (65-110); Magnesium 1.9 mg/dL (1.6-2.3); Potassium 3.9 mmol/L (3.4-5.0); Sodium 139 mmol/L (137-145)
--- NOTE | 2023-05-10 08:11 | PCPTNOTE ---
Patient declined PT at this time stating she did not feel well and her legs and head hurt. She states she would like something for pain. RN aware and will issue medication.
[2023-05-10] MEDS: PANTOPRAZOLE 40 MG TABLET PO (08:28)
[2023-05-10] MEDS: DULoxetine HCL 20 MG CAPSULE.DR PO (08:28)
[2023-05-10] MEDS: APIXABAN 5 MG TABLET PO ×2 (08:28→21:01)
[2023-05-10] MEDS: FUROSEMIDE 40 MG TABLET PO (08:28)
[2023-05-10] MEDS: METOPROLOL TARTRATE 25 MG TABLET 125 MG PO (08:29)
[2023-05-10] MEDS: lisinopriL 20 MG TABLET PO (08:29)
[2023-05-10] MEDS: ACETAMINOPHEN 500 MG TABLET 1000 MG PO ×2 (08:29→21:02)
[2023-05-10] MEDS: OSELTAMIVIR PHOSPHATE 30 MG CAPSULE PO ×2 (08:29→21:01)
[2023-05-10] MEDS: DOXAZOSIN MESYLATE 4 MG TABLET PO (08:29)
[2023-05-10] MEDS: SPIRONOLACTONE 25 MG TABLET PO (08:29)
[2023-05-10] MEDS: ASPIRIN 81 MG CHEWABLE TABLET PO (08:35)
[2023-05-10 08:40] LABS: Glucose Point of Care 123 mg/dl (65-105)
--- NOTE | 2023-05-10 08:44 | P.CDI_ITS ---
CDI Query Clarification Request BMI 22.1 Protein calorie Malnutrition noted in the assessment and plan. Nutritional Diagnostic statement Suboptimal po intake related to poor appetite as evidenced by charted intake. Additional Nutritional comments Pt on heart healthy diet, intake poor to fair averaging about 25%. Unsure of any recent weight loss . Please refer to the comprehensive nutrition assessment for further information. Please clarify severity of protein calorie malnutrition if known: * Mild * Moderate * Severe * Other/ Unspecified <Berna sIrael RN - Last Filed: 05/10/23 08:51> Provider Comments protein calorie malnutrition <Robert Alfaro MD - Last Filed: 05/10/23 14:55>
[2023-05-10] MEDS: ALBUTEROL SULFATE (*SP) AEROSOL 1 PUFF 2 PUFF INHALATION (08:55)
[2023-05-10 11:24] LABS: Glucose Point of Care 133 mg/dl (65-105)
[2023-05-10] MEDS: INSULIN HUMAN ISOPHAN/REGULAR 70/30 (*BKC) 100 UNITS/ML SUB-Q ×2 (13:24→17:05)
[2023-05-10] MEDS: minoxidiL 2.5 MG TABLET 5 MG PO (13:27)
--- NOTE | 2023-05-10 14:40 | PM.IMPN ---
Progress Note: A&P Assessment and Plan (1) Influenza A: Code(s): J10.1 - Influenza due to other identified influenza virus with other respiratory manifestations Status: Acute (2) Hypoxia: Code(s): R09.02 - Hypoxemia Status: Acute (3) Macrocytic anemia: Code(s): D53.9 - Nutritional anemia, unspecified Status: Acute (4) Neuropathy: Code(s): G62.9 - Polyneuropathy, unspecified Status: Acute (5) Protein calorie malnutrition: Code(s): E46 - Unspecified protein-calorie malnutrition Status: Acute (6) Diastolic congestive heart failure: Code(s): I50.30 - Unspecified diastolic (congestive) heart failure Status: Acute (7) Chronic anticoagulation: Code(s): 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 No chest pain. She was hypoxic at about 88% on room air was placed on oxygen via nasal cannula. She is noted to have expiratory wheezing. Fluid overload and CHF was suspected. She also has underlying COPD. Breathing treatment IV Lasix was performed in the ER. She tested positive for influenza A. BNP was elevated at 436 troponins negative COVID and RSV is negative. Chest x-ray showed cardiomegaly with minimal infiltrate or atelectasis at the lung base. WBC count is normal at 4.8 chronic anemia acute on chronic no signs of bleeding monitor iron profile suggestive of anemia chronic disease B12 normal folate normal TSH normal Acute on chronic diastolic congestive heart failure recent echo EF 65-70% was on Lasix daily but was discontinued at discharge. She has remain on metolazone daily. Lexiscan done 04/07/2023 with no definitive ischemia or infarct. Resumed oral Lasix 40 mg daily and held metolazone. Metabolic alkalosis noted and hence held metolazone. Will continue to monitor. Will recheck chest x-ray in a.m. Atrial fibrillation on metoprolol and Eliquis Recent C diff colitis completed treatment Influenza a Tamiflu Insulin-dependent diabetes mellitus Hypertension Hyperlipidemia GERD Gout Overactive bladder Hepatic steatosis Macular degeneration Peripheral neuropathy MRI reviewed as facet arthritis no significant canal stenosis. Has tried gabapentin which led to confusion. Discuss other options for peripheral neuropathy as includes Lyrica versus duloxetine. Agreeable to the trial. Will start duloxetine 20 mg daily opiates benzodiazepines has caused her to be sleepy and has not tolerated in the past. Prednisone has also made her gain weight gain to eventually getting off that medication DVT prophylaxis on Eliquis disposition: PT/OT to see. needs to go SNF Subjective Date/time seen: 05/10/23 14:40 Interval history: 82-year-old female from [facility] recently on 04/29/2023 presented with shortness of breath leg swelling. No chest pain. She was hypoxic at about 88% on room air was placed on oxygen via nasal cannula. She is noted to have expiratory wheezing. Fluid overload and CHF was suspected. She also has underlying COPD. Breathing treatment IV Lasix was performed in the ER. She tested positive for influenza A. BNP was elevated at 436 troponins negative COVID and RSV is negative. Chest x-ray showed cardiomegaly with minimal infiltrate or atelectasis at the lung base. WBC count is normal at 4.8 chronic anemia acute on chronic no signs of bleeding monitor iron profile suggestive of anemia chronic disease B12 normal folate normal TSH normal Acute on chronic diastolic congestive heart failure recent echo EF 65-70% was on Lasix daily but was discontinued at discharge. Lexiscan done 04/07/2023 with no definitive ischemia or infarct Atrial fibrillation on metoprolol and Eliquis Recent C diff colit
[2023-05-10 16:47] LABS: Glucose Point of Care 247 mg/dl (65-105)
[2023-05-10] MEDS: INSULIN ASPART (*BKC) 100 UNITS/ML SUB-Q (17:06)
[2023-05-10 20:33] LABS: Glucose Point of Care 64 mg/dl (65-105)
--- NOTE | 2023-05-10 20:39 | PC.NURSE ---
Per SAS ANALYST Joyce Robison, hold 2100 dose of Metoprolol - low BP
[2023-05-10 21:45] LABS: Glucose Point of Care 136 mg/dl (65-105)
[2023-05-11] VITALS (9 sets, daily range): BP systolic 91–139; BP diastolic 40–69; PULSE 58–80; RESP 17–20; TEMP 36–36.7; O2SAT 91–99
[2023-05-11] MEDS: ACETAMINOPHEN 500 MG TABLET 1000 MG PO ×2 (05:42→21:23)
[2023-05-11 06:11] LABS: Basophils Absolute Auto 0.1 K/mm3 (0.0-0.1); Basophils Percent Auto 0.8 % (0.2-1.2); Eosinophils Absolute Auto 0.3 K/mm3 (0-0.3); Eosinophils Percent Auto 4.8 % (0-4.4); Hematocrit 29.2 % (37.0-47.0); Hemoglobin 8.9 g/dL (12.0-15.0); Immature Granulocyte Absolute 0.08 K/mm3 (0.00-0.031); Immature Granulocyte Percent A 1.3 % (0-0.5); Lymphocytes Absolute Auto 1.45 K/mm3 (0.9-3.2); Mean Corpuscular HGB Conc 30.5 g/dl (32-36); Mean Corpuscular Hemoglobin 29.8 pg (26-34); Mean Corpuscular Volume 97.7 fl (80-100); Mean Platelet Volume 9.7 fl (7.4-10.4); Monocytes Absolute Auto 0.6 K/mm3 (0.1-0.6); Monocytes Percent Auto 9.3 % (2.6-8.5); Neutrophils Absolute Auto 3.6 K/mm3 (1.3-6.7); Neutrophils Percent Auto 59.8 % (45.5-73.1); Platelet Count Result 263 k/mm3 (150-375); Red Blood Count 2.99 M/mm3 (4.2-5.4); Red Cell Distribution Width 16.2 % (11.5-14.5)
[2023-05-11 06:35] LABS: Alanine Aminotransferase 12 U/L (6-35); Alkaline Phosphatase 73 U/L (38-126); Aspartate Amino Transferase 19 U/L (14-36); Bilirubin,Total 0.6 mg/dL (0.2-1.3); Blood Urea Nitrogen 30 mg/dL (7-17); Calcium 8.6 mg/dL (8.4-10.2); Carbon Dioxide > 40 mmol/L (22-30); Chloride 93 mmol/L (98-107); Estimated CRCL calculation 26 ml/min; Estimated Glomerular Filt Rate 43; Glucose 95 mg/dL (65-110); Magnesium 1.9 mg/dL (1.6-2.3); Potassium 3.9 mmol/L (3.4-5.0); Sodium 138 mmol/L (137-145)
[2023-05-11] MEDS: PANTOPRAZOLE 40 MG TABLET PO (09:51)
[2023-05-11] MEDS: ASPIRIN 81 MG CHEWABLE TABLET PO (09:51)
[2023-05-11] MEDS: DULoxetine HCL 20 MG CAPSULE.DR PO (09:51)
[2023-05-11] MEDS: OSELTAMIVIR PHOSPHATE 30 MG CAPSULE PO (09:51)
[2023-05-11] MEDS: APIXABAN 5 MG TABLET PO ×2 (09:52→21:23)
[2023-05-11 11:30] LABS: Glucose Point of Care 225 mg/dl (65-105)
[2023-05-11] MEDS: minoxidiL 2.5 MG TABLET 5 MG PO (12:46)
[2023-05-11] MEDS: INSULIN HUMAN ISOPHAN/REGULAR 70/30 (*BKC) 100 UNITS/ML SUB-Q (12:46)
--- NOTE | 2023-05-11 13:00 | PM.IMPN ---
Progress Note: A&P Assessment and Plan (1) Influenza A: Code(s): J10.1 - Influenza due to other identified influenza virus with other respiratory manifestations Status: Acute (2) Hypoxia: Code(s): R09.02 - Hypoxemia Status: Acute (3) Macrocytic anemia: Code(s): D53.9 - Nutritional anemia, unspecified Status: Acute (4) Neuropathy: Code(s): G62.9 - Polyneuropathy, unspecified Status: Acute (5) Protein calorie malnutrition: Code(s): E46 - Unspecified protein-calorie malnutrition Status: Acute (6) Diastolic congestive heart failure: Code(s): I50.30 - Unspecified diastolic (congestive) heart failure Status: Acute (7) Chronic anticoagulation: 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 No chest pain. She was hypoxic at about 88% on room air was placed on oxygen via nasal cannula. She is noted to have expiratory wheezing. Fluid overload and CHF was suspected. She also has underlying COPD. Breathing treatment IV Lasix was performed in the ER. She tested positive for influenza A. BNP was elevated at 436 troponins negative COVID and RSV is negative. Chest x-ray showed cardiomegaly with minimal infiltrate or atelectasis at the lung base. WBC count is normal at 4.8 chronic anemia acute on chronic no signs of bleeding monitor iron profile suggestive of anemia chronic disease B12 normal folate normal TSH normal Acute on chronic diastolic congestive heart failure recent echo EF 65-70% was on Lasix daily but was discontinued at discharge. She has remain on metolazone daily. Lexiscan done 04/07/2023 with no definitive ischemia or infarct. Resumed oral Lasix 40 mg daily and held metolazone. Metabolic alkalosis noted and hence held metolazone. Will continue to monitor. Will recheck chest x-ray in a.m. Atrial fibrillation on metoprolol and Eliquis Recent C diff colitis completed treatment Influenza a Tamiflu Insulin-dependent diabetes mellitus Hypertension Hyperlipidemia GERD Gout Overactive bladder Hepatic steatosis Macular degeneration Peripheral neuropathy MRI reviewed as facet arthritis no significant canal stenosis. Has tried gabapentin which led to confusion. Discuss other options for peripheral neuropathy as includes Lyrica versus duloxetine. Agreeable to the trial. Will start duloxetine 20 mg daily opiates benzodiazepines has caused her to be sleepy and has not tolerated in the past. Prednisone has also made her gain weight gain to eventually getting off that medication DVT prophylaxis on Eliquis disposition: PT/OT to see. needs to go SNF Subjective Date/time seen: 05/11/23 18:51 Interval history: This is a pleasant 82-year-old female with insulin-dependent diabetes mellitus, hypertension, hyperlipidemia, gastroesophageal reflux disease, gout, overactive bladder, hepatic steatosis, and macular degeneration who presented to the emergency department via EMS from a local rehab facility for evaluation of shortness of breath. The patient provides the following history; her son Julio provides additional information with the patient's permission. She is known to the hospitalist service from a recent lengthy stay in which she was treated for multiple problems including diastolic congestive heart failure, urinary retention, and C diff colitis. Two months prior to her hospitalization she was up ambulating without issue however she began to have difficulties walking due to severe pain in both feet which has been an ongoing at worsening problems for nearly the last year. She was treated for gout with the usual medications however was ultimately started on steroids due to minimal relief. This steroids caused h
[2023-05-11 16:44] LABS: Glucose Point of Care 178 mg/dl (65-105)
--- NOTE | 2023-05-11 20:15 | PC.NURSE ---
This RN called to pt room because son stated she had a nose bleed. THis RN had controlled medicines for pain for another pt. Kwadwo RN sent into pt room. Kwadwo RN attempted to apply pressure to left nare. Pt agitated after only a minute or two and sent RN out. This RN to pt bedside after meds locked up. Pt agitated and stated she did not like pressure to her nose. She stated that she would allow me to apply pressure. After two minutes, the pt smacked this RN's hand. I asked how I could help her. She said she wanted a doctor to come fix it. I said they would apply pressure as well. She refused. This RN left as pt shoved kleenex into her nostril. WAITER/WAITRESS BUFFET took vitals which were stable. Multiple revisits performed by kwadwo gotti RN, and this RN.
[2023-05-11 21:16] LABS: Glucose Point of Care 135 mg/dl (65-105)
[2023-05-11] MEDS: METOPROLOL TARTRATE 25 MG TABLET 125 MG PO (21:28)
[2023-05-12] VITALS (9 sets, daily range): BP systolic 100–146; BP diastolic 54–89; PULSE 63–75; RESP 14–20; TEMP 36.1–37.2; O2SAT 92–99
[2023-05-12 08:28] LABS: Glucose Point of Care 173 mg/dl (65-105)
[2023-05-12] MEDS: PANTOPRAZOLE 40 MG TABLET PO (09:16)
[2023-05-12] MEDS: DULoxetine HCL 20 MG CAPSULE.DR PO (09:16)
[2023-05-12] MEDS: ASPIRIN 81 MG CHEWABLE TABLET PO (09:16)
[2023-05-12] MEDS: DOXAZOSIN MESYLATE 4 MG TABLET PO (09:16)
[2023-05-12] MEDS: APIXABAN 5 MG TABLET PO ×2 (09:16→21:43)
[2023-05-12] MEDS: INSULIN HUMAN ISOPHAN/REGULAR 70/30 (*BKC) 100 UNITS/ML SUB-Q (09:16)
[2023-05-12 12:10] LABS: Glucose Point of Care 170 mg/dl (65-105)
[2023-05-12 16:51] LABS: Appearance Urine Turbid (Clear); Bacteria Urine 4+ /hpf; Bilirubin Urine 1+ (Negative); Blood Urine 3+ (Negative); Glucose Urine UA Negative (Negative); Ketones Urine Trace mg/dL (Negative); Leukocyte Esterase Ur 3+ LEU/UL (Negative); Need Manual Microscopic Reviewed; Nitrate Urine Positive (Negative); Protein Urine 1+ mg/dL (Negative); RBC Urine >100 /hpf (0-2); Specific Grav Ur 1.016 (1.001-1.035); Squamous Epithelial Cell Urine Occasional /hpf (Few); WBC Urine >100 /hpf; pH Urine 7.5 (5.0-9.0)
[2023-05-12 16:52] LABS: Color Urine Dark Yellow (Yellow)
[2023-05-12 16:53] LABS: Add Urine Microscopic? YES
[2023-05-12 17:10] LABS: Glucose Point of Care 125 mg/dl (65-105)
--- NOTE | 2023-05-12 19:37 | PM.IMPN ---
Progress Note: A&P Assessment and Plan (1) Influenza A: Code(s): J10.1 - Influenza due to other identified influenza virus with other respiratory manifestations Status: Acute Assessment and Plan: -viral pcr + for influenza A, pt hypoxic upon arrival requiring 2L NC 02 -continue supportive care (2) Hypoxia: Code(s): R09.02 - Hypoxemia Status: Acute Assessment and Plan: -continue SPO2 Monitoring -Oxygen titration therapy in order to maintain SPO2 >93% Chest x-ray showed cardiomegaly with minimal infiltrate or atelectasis at the lung base (3) Macrocytic anemia: Code(s): D53.9 - Nutritional anemia, unspecified Status: Acute (4) Neuropathy: Code(s): G62.9 - Polyneuropathy, unspecified Status: Acute Assessment and Plan: -continue home medications (5) Protein calorie malnutrition: Code(s): E46 - Unspecified protein-calorie malnutrition Status: Acute Assessment and Plan: -dietary consult -continue to monitor caloric intake (6) Diastolic congestive heart failure: Code(s): I50.30 - Unspecified diastolic (congestive) heart failure Status: Acute Assessment and Plan: Acute on chronic diastolic congestive heart failure recent echo EF 65-70% was on Lasix daily but was discontinued at discharge.? She has remain on metolazone daily.? Lexiscan done 04/07/2023 with no definitive ischemia or infarct.? -continue telemetry monitoring -continue oral Lasix 40 mg daily -hold metolazone.? (7) Chronic anticoagulation: Code(s): Z79.01 - [facility] (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 of anticoagulants Status: Acute Assessment and Plan: hx of AFib -continue home medication Eliquis (8) Hypertension: Code(s): I10 - Essential (primary) hypertension Status: Chronic Assessment and Plan: -chronic -continue home medications Plan -continue duloxetine 20 mg daily, opiates benzodiazepines has caused her to be sleepy and has not tolerated in the past. -check UA, concern for low urine output, continued mild confusion, urine is dark colored in Mcallister -will continue to monitor DVT prophylaxis on Eliquis Code Status: Full Code anticipated hospital stay:>1 day disposition: PT/OT to see. needs to go SNF Subjective Date/time seen: 05/12/23 0830 Interval history: 82-year-old female from [facility] discharged recently on 04/29/2023 presented with shortness of breath leg swelling.? No chest pain.? She was hypoxic at about 88% on room air was placed on oxygen via nasal cannula.? She is noted to have expiratory wheezing.? Fluid overload and CHF was suspected.? She also has underlying COPD.? Breathing treatment IV Lasix was performed in the ER.? She tested positive for influenza A.? BNP was elevated at 436 troponins negative COVID and RSV is negative.? Chest x-ray showed cardiomegaly with minimal infiltrate or atelectasis at the lung base.? WBC count is normal at 4.8 chronic anemia acute on chronic no signs of bleeding monitor iron profile suggestive of anemia chronic disease B12 normal folate normal TSH normal Acute on chronic diastolic congestive heart failure recent echo EF 65-70% was on Lasix daily but was discontinued at discharge.? She has remain on metolazone daily.? Lexiscan done 04/07/2023 with no definitive ischemia or infarct.? Resumed oral Lasix 40 mg daily and held metolazone.? Metabolic alkalosis noted and hence held metolazone.? Will continue to monitor.? 05/08/2023:? No overnight events.? Had urinary retention Mcallister placed back.? No chest pain no fevers no chills 05/09/2023:? No overnight events feeling well has some cough and sputum production.? MRI? was reviewed with the son 05/10/2023:? No Overnight events.? No specific new complaint.? Still has some cough.? Denies any shortness of breath.? Feeling tired. 05/11/2023:??Assumed care for patient, she is resting in the bed in no acute distress, on room air, has frequ
[2023-05-12 21:08] LABS: Glucose Point of Care 174 mg/dl (65-105)
[2023-05-13] VITALS (7 sets, daily range): BP systolic 109–168; BP diastolic 50–62; PULSE 65–76; RESP 16–20; TEMP 36.3–37.1; O2SAT 90–97
--- NOTE | 2023-05-13 07:29 | PM.IMPN ---
Progress Note: A&P Assessment and Plan (1) Influenza A: Code(s): J10.1 - Influenza due to other identified influenza virus with other respiratory manifestations Status: Acute Assessment and Plan: -viral pcr + for influenza A, pt hypoxic upon arrival requiring 2L NC 02 -continue supportive care (2) Hypoxia: Code(s): R09.02 - Hypoxemia Status: Acute Assessment and Plan: -continue SPO2 Monitoring -Oxygen titration therapy in order to maintain SPO2 >93% Chest x-ray showed cardiomegaly with minimal infiltrate or atelectasis at the lung base (3) Macrocytic anemia: Code(s): D53.9 - Nutritional anemia, unspecified Status: Acute (4) Neuropathy: Code(s): G62.9 - Polyneuropathy, unspecified Status: Acute Assessment and Plan: -continue home medications (5) Protein calorie malnutrition: Code(s): E46 - Unspecified protein-calorie malnutrition Status: Acute Assessment and Plan: -dietary consult -continue to monitor caloric intake (6) Diastolic congestive heart failure: Code(s): I50.30 - Unspecified diastolic (congestive) heart failure Status: Acute Assessment and Plan: Acute on chronic diastolic congestive heart failure recent echo EF 65-70% was on Lasix daily but was discontinued at discharge.? She has remain on metolazone daily.? Lexiscan done 04/07/2023 with no definitive ischemia or infarct.? -continue telemetry monitoring -continue oral Lasix 40 mg daily -hold metolazone.? 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 Status: Acute Assessment and Plan: hx of AFib -continue home medication Eliquis (8) Hypertension: Code(s): I10 - Essential (primary) hypertension Status: Chronic Assessment and Plan: -chronic -continue home medications (9) Urinary retention: Code(s): R33.9 - Retention of urine, unspecified Status: Acute (10) UTI (urinary tract infection), bacterial: Code(s): N39.0 - Urinary tract infection, site not specified; A49.9 - Bacterial infection, unspecified Status: Acute Assessment and Plan: -continue ceftriaxone 1g q24 hours -urine culture pending -continue monitoring I&O PVR q 4 hrs plan to d/c zarco in the a.m Plan -continue duloxetine 20 mg daily, opiates benzodiazepines has caused her to be sleepy and has not tolerated in the past. -urine culture pending -continue IV antibiotics q.24hrs -check blood cultures DVT prophylaxis on Eliquis Code Status: Full Code anticipated hospital stay:>2 day disposition: PT/OT pt will discharge to [facility] Subjective Date/time seen: 05/13/23 07:29 Interval history: Interval history: 82-year-old female from [facility] discharged recently on 04/29/2023 presented with shortness of breath leg swelling.? No chest pain.? She was hypoxic at about 88% on room air was placed on oxygen via nasal cannula.? She is noted to have expiratory wheezing.? Fluid overload and CHF was suspected.? She also has underlying COPD.? Breathing treatment IV Lasix was performed in the ER.? She tested positive for influenza A.? BNP was elevated at 436 troponins negative COVID and RSV is negative.? Chest x-ray showed cardiomegaly with minimal infiltrate or atelectasis at the lung base.? WBC count is normal at 4.8 chronic anemia acute on chronic no signs of bleeding monitor iron profile suggestive of anemia chronic disease B12 normal folate normal TSH normal Acute on chronic diastolic congestive heart failure recent echo EF 65-70% was on Lasix daily but was discontinued at discharge.? She has remain on metolazone daily.? Lexiscan done 04/07/2023 with no definitive ischemia or infarct.? Resumed oral Lasix 40 mg daily and held metolazone.? Metabolic alkalosis noted and hence held metolazone.? Will continue to monitor.? 05/08/2023:? No overnight events.? Had urinary retentio
[2023-05-13 08:34] LABS: Glucose Point of Care 158 mg/dl (65-105)
[2023-05-13] MEDS: APIXABAN 5 MG TABLET PO ×2 (08:39→22:14)
[2023-05-13] MEDS: ASPIRIN 81 MG CHEWABLE TABLET PO (08:39)
[2023-05-13] MEDS: METOPROLOL TARTRATE 50 MG TAB PO ×2 (08:39→22:14)
[2023-05-13] MEDS: DULoxetine HCL 20 MG CAPSULE.DR PO (08:39)
[2023-05-13] MEDS: DOXAZOSIN MESYLATE 4 MG TABLET PO (08:39)
[2023-05-13] MEDS: PANTOPRAZOLE 40 MG TABLET PO (08:39)
[2023-05-13] MEDS: INSULIN HUMAN ISOPHAN/REGULAR 70/30 (*BKC) 100 UNITS/ML SUB-Q ×3 (08:40→17:36)
[2023-05-13 11:55] LABS: Glucose Point of Care 170 mg/dl (65-105)
[2023-05-13] MEDS: minoxidiL 2.5 MG TABLET 5 MG PO (12:27)
--- NOTE | 2023-05-13 14:05 | PCOTNOTE ---
Attempted 2 times this date to provide OT services. Patient declines and seems to be having increased confusion this date.
[2023-05-13 16:50] LABS: Glucose Point of Care 177 mg/dl (65-105)
[2023-05-13 21:15] LABS: Glucose Point of Care 266 mg/dl (65-105)
[2023-05-13] MEDS: BENZONATATE 100 MG CAPSULE PO (22:14)
[2023-05-13] MEDS: INSULIN ASPART (*BKC) 100 UNITS/ML SUB-Q (22:17)
[2023-05-14] VITALS (7 sets, daily range): BP systolic 101–150; BP diastolic 43–60; PULSE 59–77; RESP 16–20; TEMP 35.6–36.9; O2SAT 92–100
[2023-05-14 07:37] LABS: Glucose Point of Care 144 mg/dl (65-105)
[2023-05-14] MEDS: INSULIN HUMAN ISOPHAN/REGULAR 70/30 (*BKC) 100 UNITS/ML SUB-Q ×3 (08:51→17:12)
[2023-05-14] MEDS: ACETAMINOPHEN 500 MG TABLET 1000 MG PO ×2 (08:51→21:39)
[2023-05-14] MEDS: DULoxetine HCL 20 MG CAPSULE.DR PO (08:51)
[2023-05-14] MEDS: METOPROLOL TARTRATE 50 MG TAB PO ×2 (08:52→21:39)
[2023-05-14] MEDS: DOXAZOSIN MESYLATE 4 MG TABLET PO (08:53)
[2023-05-14] MEDS: BENZONATATE 100 MG CAPSULE PO ×3 (08:53→17:13)
[2023-05-14] MEDS: PANTOPRAZOLE 40 MG TABLET PO (08:53)
[2023-05-14] MEDS: ASPIRIN 81 MG CHEWABLE TABLET PO (08:53)
[2023-05-14] MEDS: APIXABAN 5 MG TABLET PO ×2 (08:54→21:39)
--- NOTE | 2023-05-14 09:43 | PM.IMPN ---
Progress Note: A&P Assessment and Plan (1) Influenza A: Code(s): J10.1 - Influenza due to other identified influenza virus with other respiratory manifestations Status: Acute Assessment and Plan: -viral pcr + for influenza A, pt hypoxic upon arrival requiring 2L NC 02 -continue supportive care (2) Hypoxia: Code(s): R09.02 - Hypoxemia Status: Acute Assessment and Plan: -continue SPO2 Monitoring -Oxygen titration therapy in order to maintain SPO2 >93% Chest x-ray showed cardiomegaly with minimal infiltrate or atelectasis at the lung base (3) Macrocytic anemia: Code(s): D53.9 - Nutritional anemia, unspecified Status: Acute (4) Neuropathy: Code(s): G62.9 - Polyneuropathy, unspecified Status: Acute Assessment and Plan: -continue home medications (5) Protein calorie malnutrition: Code(s): E46 - Unspecified protein-calorie malnutrition Status: Acute Assessment and Plan: -dietary consult -continue to monitor caloric intake (6) Diastolic congestive heart failure: Code(s): I50.30 - Unspecified diastolic (congestive) heart failure Status: Acute Assessment and Plan: Acute on chronic diastolic congestive heart failure recent echo EF 65-70% was on Lasix daily but was discontinued at discharge.? She has remain on metolazone daily.? Lexiscan done 04/07/2023 with no definitive ischemia or infarct.? -continue telemetry monitoring -continue oral Lasix 40 mg daily -hold metolazone.? 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 Status: Acute Assessment and Plan: hx of AFib -continue home medication Eliquis (8) Hypertension: Code(s): I10 - Essential (primary) hypertension Status: Chronic Assessment and Plan: -chronic -continue home medications (9) Urinary retention: Code(s): R33.9 - Retention of urine, unspecified Status: Acute (10) UTI (urinary tract infection), bacterial: Code(s): N39.0 - Urinary tract infection, site not specified; A49.9 - Bacterial infection, unspecified Status: Acute Assessment and Plan: -continue ceftriaxone 1g q24 hours -urine culture pending -continue monitoring I&O PVR q 4 hrs plan to d/c zarco in the a.m Plan -continue duloxetine 20 mg daily, opiates benzodiazepines has caused her to be sleepy and has not tolerated in the past. -urine culture preliminary + Gram-negative Paxil I isolated -continue IV antibiotics q.24hrs - blood cultures pending, preliminary with no growth DVT prophylaxis on Eliquis Code Status: Full Code anticipated hospital stay:>2 day disposition: PT/OT pt will discharge to [facility] Subjective Date/time seen: 05/14/23 09:43 Interval history: Interval history: 82-year-old [facility] from [facility] living discharged recently on 04/29/2023 presented with shortness of breath leg swelling.? No chest pain.? She was hypoxic at about 88% on room air was placed on oxygen via nasal cannula.? She is noted to have expiratory wheezing.? Fluid overload and CHF was suspected.? She also has underlying COPD.? Breathing treatment IV Lasix was performed in the ER.? She tested positive for influenza A.? BNP was elevated at 436 troponins negative COVID and RSV is negative.? Chest x-ray showed cardiomegaly with minimal infiltrate or atelectasis at the lung base.? WBC count is normal at 4.8 chronic anemia acute on chronic no signs of bleeding monitor iron profile suggestive of anemia chronic disease B12 normal folate normal TSH normal Acute on chronic diastolic congestive heart failure recent echo EF 65-70% was on Lasix daily but was discontinued at discharge.? She has remain on metolazone daily.? Lexiscan done 04/07/2023 with no definitive ischemia or infarct.? Resumed oral Lasix 40 mg daily and held metolazone.? Metabolic alkalosis noted and hence held metolazone.? Will continue to mo
[2023-05-14 11:47] LABS: Glucose Point of Care 207 mg/dl (65-105)
[2023-05-14] MEDS: minoxidiL 2.5 MG TABLET 5 MG PO (12:07)
[2023-05-14] MEDS: INSULIN ASPART (*BKC) 100 UNITS/ML SUB-Q (12:08)
[2023-05-14 16:55] LABS: Glucose Point of Care 168 mg/dl (65-105)
[2023-05-14 18:07] LABS: Influenza A QL RT-PCR Negative (Negative); Influenza B QL RT-PCR Negative (Negative); RSV RNA, RT-PCR Negative (Negative); SARS-CoV-2 RNA PCR Negative (Negative)
[2023-05-14 21:04] LABS: Glucose Point of Care 149 mg/dl (65-105)
[2023-05-15] VITALS (10 sets, daily range): BP systolic 108–145; BP diastolic 49–61; PULSE 59–72; RESP 16–18; TEMP 35.7–36.9; O2SAT 91–98
[2023-05-15 05:51] LABS: Potassium 4.1 mmol/L (3.4-5.0)
[2023-05-15 08:13] LABS: Glucose Point of Care 112 mg/dl (65-105)
[2023-05-15] MEDS: INSULIN HUMAN ISOPHAN/REGULAR 70/30 (*BKC) 100 UNITS/ML SUB-Q ×3 (09:33→16:36)
[2023-05-15] MEDS: METOPROLOL TARTRATE 50 MG TAB PO ×2 (09:34→22:20)
[2023-05-15] MEDS: DULoxetine HCL 20 MG CAPSULE.DR PO (09:35)
[2023-05-15] MEDS: ASPIRIN 81 MG CHEWABLE TABLET PO (09:35)
[2023-05-15] MEDS: APIXABAN 5 MG TABLET PO ×2 (09:35→21:20)
[2023-05-15] MEDS: ACETAMINOPHEN 500 MG TABLET 1000 MG PO (09:35)
[2023-05-15] MEDS: BENZONATATE 100 MG CAPSULE PO ×3 (09:36→16:36)
[2023-05-15] MEDS: PANTOPRAZOLE 40 MG TABLET PO (09:36)
[2023-05-15] MEDS: DOXAZOSIN MESYLATE 4 MG TABLET PO (09:36)
--- NOTE | 2023-05-15 10:41 | PM.IMPN ---
Progress Note: A&P Assessment and Plan (1) Influenza A: Code(s): J10.1 - Influenza due to other identified influenza virus with other respiratory manifestations Status: Resolved Assessment and Plan: resolved as evidenced by viral pcr (2) Hypoxia: Code(s): R09.02 - Hypoxemia Status: Acute Assessment and Plan: -continue SPO2 Monitoring -Oxygen titration therapy in order to maintain SPO2 >93% -check apnea link monitor -home oxygen evaluation once (3) Macrocytic anemia: Code(s): D53.9 - Nutritional anemia, unspecified Status: Acute Assessment and Plan: -hemoglobin is stable 8.1 (4) Neuropathy: Code(s): G62.9 - Polyneuropathy, unspecified Status: Acute Assessment and Plan: -continue home medications (5) Protein calorie malnutrition: Code(s): E46 - Unspecified protein-calorie malnutrition Status: Acute Assessment and Plan: -dietary consult -continue to monitor caloric intake (6) Diastolic congestive heart failure: Code(s): I50.30 - Unspecified diastolic (congestive) heart failure Status: Acute Assessment and Plan: Acute on chronic diastolic congestive heart failure recent echo EF 65-70% was on Lasix daily but was discontinued at discharge.? -continue telemetry monitoring -continue oral Lasix 40 mg daily -hold metolazone.? 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 Status: Acute Assessment and Plan: hx of AFib -continue home medication Eliquis (8) Hypertension: Code(s): I10 - Essential (primary) hypertension Status: Chronic Assessment and Plan: -chronic -continue home medications (9) Urinary retention: Code(s): R33.9 - Retention of urine, unspecified Status: Acute Assessment and Plan: chronic, suspect urine ret from medication, pt has indwelling Mcallister -remove Mcallister -start voiding trial -bladder scan (10) UTI (urinary tract infection), bacterial: Code(s): N39.0 - Urinary tract infection, site not specified; A49.9 - Bacterial infection, unspecified Status: Acute Assessment and Plan: -continue monitoring I&O Plan -continue duloxetine 20 mg daily, opiates benzodiazepines has caused her to be sleepy and has not tolerated in the past. -urine culture + Klebsiella pneumoniae -pharmacy consult will switch patient to ceftazidime 1gm q 24 hrs -blood cultures final no growth DVT prophylaxis on Eliquis Code Status: Full Code anticipated hospital stay:>2 day disposition: PT/OT pt will discharge to SNF Subjective Date/time seen: 05/15/23 10:41 Interval history: Interval history: 82-year-old female from [facility] discharged recently on 04/29/2023 presented with shortness of breath leg swelling.? No chest pain.? She was hypoxic at about 88% on room air was placed on oxygen via nasal cannula.? She is noted to have expiratory wheezing.? Fluid overload and CHF was suspected.? She also has underlying COPD.? Breathing treatment IV Lasix was performed in the ER.? She tested positive for influenza A.? BNP was elevated at 436 troponins negative COVID and RSV is negative.? Chest x-ray showed cardiomegaly with minimal infiltrate or atelectasis at the lung base.? WBC count is normal at 4.8 chronic anemia acute on chronic no signs of bleeding monitor iron profile suggestive of anemia chronic disease B12 normal folate normal TSH normal Acute on chronic diastolic congestive heart failure recent echo EF 65-70% was on Lasix daily but was discontinued at discharge.? She has remain on metolazone daily.? Lexiscan done 04/07/2023 with no definitive ischemia or infarct.? Resumed oral Lasix 40 mg daily and held metolazone.? Metabolic alkalosis noted and hence held metolazone.? Will continue to monitor.? 05/08/2023:? No overnight events.? Had urinary retention Mcallister placed back.?
[2023-05-15 11:32] LABS: Glucose Point of Care 168 mg/dl (65-105)
[2023-05-15] MEDS: cefTAZidime 1 GM/NS 50 ML 1 GM/50 ML BAG IVPB (12:10)
[2023-05-15] MEDS: minoxidiL 2.5 MG TABLET 5 MG PO (12:45)
[2023-05-15 16:31] LABS: Glucose Point of Care 185 mg/dl (65-105)
--- NOTE | 2023-05-15 19:40 | PC.NURSE ---
Pt microbiology came back with klebsiella pneumoniae and requested antibiotic change based on susceptibility report; provider made aware. Pt IV access leaking during abx infusion. Pt very anxious and hesitant about new IV. New IV placed with minimal discomfort. IV completed. Received order to discontinue zarco catheter and bladder scans. Zarco removed. Pt has had no urge to void, despite multiple attempts at reminding pt. First bladder scan at 1600 showed 230mls. Pt very aggravated at repeated bladder scans and wants MD to bedside to explain the necessity. Educated pt. Pt had a nosebleed at 1905. Pt allowed this RN to apply pressure to stop bleed. Bleed stopped. Suggested humidification to night RN.
[2023-05-15 20:48] LABS: Glucose Point of Care 133 mg/dl (65-105)
--- NOTE | 2023-05-15 22:16 | PCRCNOTE ---
Pt having a nose bleed and co not do Apnealink at this time. Nasal Cannula had to be removed and switcked to a venturi mask. Pt not able to tolerate prongs in nose for ApneaLink
[2023-05-16] VITALS (9 sets, daily range): BP systolic 114–172; BP diastolic 47–72; PULSE 65–84; RESP 14–20; TEMP 35.6–36.6; O2SAT 94–100
[2023-05-16 01:13] LABS: Alveolar/Arterial O2 Gradient 100.6 mmHg; Base Excess ABG 6.4 mEq/l (+/-2.0); Carboxyhemoglobin 0.2 % THb (0-2.0); Fractional Inspired Oxygen 30 %; HCO3 ABG 31.5 mEq/l (22.0-26.0); Methemoglobin ABG 0.3 %THb (0-1.5); Oxygen Content ABG 12.6 %vol (16.0-22.0); Oxygen Saturation ABG 90.4 % (95.0-100.0); Oxyhemoglobin 88.2 % THb (90.0-100.0); PCO2 ABG 47.7 mmHg (35.0-45.0); PO2 ABG 57.3 mmHg (80.0-100.0); PO2 FiO2 Ratio Arterial Blood 1.91 %; Reduced Hemoglobin 11.3 %THb (0-5.0); Total Hemoglobin 10.1 g/dL (12.0-18.0); pH ABG 7.437 (7.350-7.450)
[2023-05-16 01:16] LABS: Device VENTURI MASK; Modified Allen's Test Pass; Site Drawn RIGHT RADIAL
[2023-05-16] MEDS: OXYMETAZOLINE HCL 0.05% NAS 15 ML BTL (*BKC) 1 SPRAY NASAL (01:37)
[2023-05-16 01:45] LABS: Basophils Absolute Auto 0.1 K/mm3 (0.0-0.1); Eosinophils Absolute Auto 0.2 K/mm3 (0-0.3); Eosinophils Percent Auto 4.5 % (0-4.4); Hematocrit 31.4 % (37.0-47.0); Hemoglobin 9.3 g/dL (12.0-15.0); Lymphocytes Absolute Auto 1.33 K/mm3 (0.9-3.2); Lymphocytes Percent Auto 26.1 % (18.3-44.2); Mean Corpuscular HGB Conc 29.6 g/dl (32-36); Mean Corpuscular Hemoglobin 29.5 pg (26-34); Mean Corpuscular Volume 99.7 fl (80-100); Mean Platelet Volume 9.3 fl (7.4-10.4); Monocytes Absolute Auto 0.5 K/mm3 (0.1-0.6); Monocytes Percent Auto 9.4 % (2.6-8.5); Neutrophils Absolute Auto 2.9 K/mm3 (1.3-6.7); Platelet Count Result 270 k/mm3 (150-375); Red Blood Count 3.15 M/mm3 (4.2-5.4); Red Cell Distribution Width 16.3 % (11.5-14.5); White Blood Count 5.1 K/mm3 (4.5-10.0)
[2023-05-16 01:59] LABS: INR 1.3; Prothrombin Time 16.9 Seconds (11.1-14.7)
[2023-05-16 02:00] LABS: Alanine Aminotransferase 11 U/L (6-35); Albumin Level 3.2 g/dL (3.5-5.1); Alkaline Phosphatase 78 U/L (38-126); Anion Gap 5 mmol/L (8-16); Aspartate Amino Transferase 20 U/L (14-36); Bilirubin,Total 0.5 mg/dL (0.2-1.3); Blood Urea Nitrogen 20 mg/dL (7-17); Calcium 8.9 mg/dL (8.4-10.2); Carbon Dioxide 36 mmol/L (22-30); Chloride 98 mmol/L (98-107); Estimated CRCL calculation 38 ml/min; Estimated Glomerular Filt Rate > 60; Glucose 153 mg/dL (65-110); Partial Thromboplastin Time 35.8 SECONDS (22.3-36.8); Potassium 4.2 mmol/L (3.4-5.0); Sodium 139 mmol/L (137-145)
[2023-05-16 02:09] LABS: Anisocytosis 1+ (NORMAL); Hypochromasia 1+ (NORMAL); Platelet Estimate Adequate (Adequate); Schistocytes None Seen (NORMAL); Stomatocytes 1+ (NORMAL)
--- NOTE | 2023-05-16 02:46 | PC.NURSE ---
pt's bladder scan at 2300: not able to obtain a good reading because the pt was moving around and said: that's enough! . pt's bladder scan at 02:[address] Antoine with an ultrasound machine, 100cc.
--- NOTE | 2023-05-16 02:51 | PC.NURSE ---
pt had a nose bleed since 20:[address] 01:00. Dr Antoine notified, orders received, implemented. This pt has been very uncooperative throughout the night. Multiple attempts at stopping the nose bleed: ice packs, clamp, gauze, adequate positioning, switching to venturi mask. Pt was non compliant with all measures. This RN called pt's son Julio who agreed to come to the hospital. Pt's son was helpful with convincing the pt to be more cooperative.
--- NOTE | 2023-05-16 05:30 | P.PNCROSS_ITS ---
Event Note Event Note Event Note: 05/16/2023 00:25 Patient has a history of dementia and is been more confused for the last day or 2. She has been having intermittent nose bleeds including during her last hospitalization. The patient has chronic oxygen requirement. Patient has been refusing nursing intervention. They are having trouble keeping getting the patient keep her oxygen on. She reports that she has been having ?significant increase in epistaxis?. They report that they cannot get the patient's bleeding to stop. However patient is refusing to allow them to apply pressure to her nose. I was initially unable to go evaluate the patient due to stabilizing critical patient. When I did go evaluate the patient evidently patient had in the in term all out nursing staff to apply the nasal clamp. When I arrived to the patient's bedside the clamp had just been removed in the patient had resolu tion of her epistaxis. However spent a great amount of time in the patient's room reassuring the patient and the son. With the son at bedside the patient did consent lab draws. An ABG was performed due to nursing reporting the patient being more confused and given the patient's increased serum bicarb on previous labs. 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 ABG was stable. The patient had not had any basic labs in several days but her diuretics were on hold. Her elevated serum bicarb could have been due to over diuresis. Repeat CMP was performed and demonstrated improved BUN and serum bicarb. Patient's CBC demonstrated improving CBC despite the nurses reported the patient having significant nose bleed. At the end of my protracted interview with the patient and her son the patient did agree to allow nursing staff to place a saturated 2 x 2 with Afrin and her nose to help stop the nose bleed. 95 minutes spent in critical care activities. This case had a high probability of a clinically significant, sudden, or life threatening deterioration of this patient's condition which required my full and direct attention, intervention and personal management.
[2023-05-16 07:56] LABS: Glucose Point of Care 148 mg/dl (65-105)
[2023-05-16] MEDS: DULoxetine HCL 20 MG CAPSULE.DR PO (09:25)
[2023-05-16] MEDS: ASPIRIN 81 MG CHEWABLE TABLET PO (09:42)
[2023-05-16] MEDS: METOPROLOL TARTRATE 50 MG TAB PO ×2 (09:43→21:07)
[2023-05-16] MEDS: PANTOPRAZOLE 40 MG TABLET PO (09:44)
[2023-05-16] MEDS: BENZONATATE 100 MG CAPSULE PO ×3 (09:44→17:26)
[2023-05-16] MEDS: INSULIN HUMAN ISOPHAN/REGULAR 70/30 (*BKC) 100 UNITS/ML SUB-Q ×3 (09:44→17:32)
[2023-05-16] MEDS: DOXAZOSIN MESYLATE 4 MG TABLET PO (09:44)
--- NOTE | 2023-05-16 10:39 | PCNFU ---
Nutrition Follow-Up Complete: Suboptimal po intake related to appetite as evidenced by charted intake Goal:PO intake 50% or greater for meals and supplements Pt is meeting goal. New goal for 75% intake of meals and supplements Pt current nutrition is Diabetic / heart healthy, Ensure compact BID. Nutrition recommendation: continue with current plan of care Last recorded weight is 54.5 kg. Bowel Motility: +BM 05/15 Labs Reviewed: Hgb:9.3, HCT:31.4, Alb:3.2, BUN:20, Glu:153 Meds Noted: Eliquis, lasix, novolog, protonix Skin: WNL Additional Notes: pt continues on a heart healthy diabetic diet, Ensure compact BID. Intake improved to 50-100% at this time. Continue to encourage good po intake of meals and supplements. monitor intake, wt, labs. Follow up in 7 days.
[2023-05-16 11:28] LABS: Glucose Point of Care 192 mg/dl (65-105)
--- NOTE | 2023-05-16 11:43 | PM.IMPN ---
Progress Note: A&P Assessment and Plan (1) Influenza A: Code(s): J10.1 - Influenza due to other identified influenza virus with other respiratory manifestations Status: Resolved Assessment and Plan: resolved as evidenced by viral pcr (2) Hypoxia: Code(s): R09.02 - Hypoxemia Status: Acute Assessment and Plan: -continue SPO2 Monitoring -Oxygen titration therapy in order to maintain SPO2 >93% -check apnea link monitor -home oxygen evaluation once (3) Macrocytic anemia: Code(s): D53.9 - Nutritional anemia, unspecified Status: Acute Assessment and Plan: -hemoglobin is stable 8.1 (4) Neuropathy: Code(s): G62.9 - Polyneuropathy, unspecified Status: Acute Assessment and Plan: -continue home medications (5) Protein calorie malnutrition: Code(s): E46 - Unspecified protein-calorie malnutrition Status: Acute Assessment and Plan: -dietary consult -continue to monitor caloric intake (6) Diastolic congestive heart failure: Code(s): I50.30 - Unspecified diastolic (congestive) heart failure Status: Acute Assessment and Plan: Acute on chronic diastolic congestive heart failure recent echo EF 65-70% was on Lasix daily but was discontinued at discharge.? -continue telemetry monitoring -continue oral Lasix 40 mg daily -hold metolazone.? 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 Status: Acute Assessment and Plan: hx of AFib -continue home medication Eliquis (8) Hypertension: Code(s): I10 - Essential (primary) hypertension Status: Chronic Assessment and Plan: -chronic -continue home medications (9) Urinary retention: Code(s): R33.9 - Retention of urine, unspecified Status: Acute Assessment and Plan: chronic, suspect urine ret from medication, pt has indwelling Mcallister -remove Mcallister -start voiding trial -bladder scan (10) UTI (urinary tract infection), bacterial: Code(s): N39.0 - Urinary tract infection, site not specified; A49.9 - Bacterial infection, unspecified Status: Acute Assessment and Plan: -continue monitoring I&O Will place on Bactrim Plan Labs were significant for a stable anemia, proBNP 436, albumin 2.8. She tested positive for influenza A. Chest x-ray showed cardiomegaly with minimal infiltrate or atelectasis at the lung base. She is being admitted in this setting for supportive care given hypoxia and influenza. Assessment and plan (1) Influenza A: ?Code(s): J10.1 - Influenza due to other identified influenza virus with other respiratory manifestations ?Status:?Acute (2) Hypoxia Acute hypoxic respiratory failure ?Code(s): R09.02 - Hypoxemia ?Status:?Acute 05/16/23: Diurese, I/O, wean supplemental oxygen (3) Macrocytic anemia: ?Code(s): D53.9 - Nutritional anemia, unspecified ?Status:?Acute (4) Neuropathy: ?Code(s): G62.9 - Polyneuropathy, unspecified ?Status:?Acute (5) Protein calorie malnutrition: ?Code(s): E46 - Unspecified protein-calorie malnutrition ?Status:?Acute (6) Diastolic congestive heart failure: ?Code(s): I50.30 - Unspecified diastolic (congestive) heart failure ?Status:?Acute (7) Chronic anticoagulation: ?Code(s): 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 Severe recurrent depression. Resume Duloxetine 10: UTI. Klebsiella spp. on Ceftazidime. Will switch to Bactrim DVT prophylaxis on Eliquis Code Status: Full Code Disposition: PT/OT pt will discharge to SNF Time Spent With Patient Time with patient: 25 - 35 minutes Subjective Date/time seen: 05/16/23 11:43 Interval history: Interval history: 82-year-old fe
[2023-05-16] MEDS: cefTAZidime 1 GM/NS 50 ML 1 GM/50 ML BAG IVPB (11:48)
[2023-05-16] MEDS: minoxidiL 2.5 MG TABLET 5 MG PO (11:53)
[2023-05-16] MEDS: SULFAMETHOXAZOLE/TRIMETHOPRIM 800/160 MG DS TABLET 1 TAB PO ×2 (15:16→21:08)
[2023-05-16 16:33] LABS: Glucose Point of Care 120 mg/dl (65-105)
[2023-05-16] MEDS: FUROSEMIDE INJ 40 MG/4 ML VIAL 20 MG IV PUSH (17:26)
[2023-05-16 20:33] LABS: Glucose Point of Care 137 mg/dl (65-105)
--- NOTE | 2023-05-17 00:23 | PCRCNOTE ---
Patient refused apnealink this evening.
[2023-05-17 01:00] VITALS: BP 118/97; PULSE 65; RESP 18; TEMP 36.3; O2SAT 97
[2023-05-17 04:45] VITALS: BP 138/48; PULSE 61; RESP 20; TEMP 36.4; O2SAT 94
[2023-05-17 06:13] LABS: Basophils Absolute Auto 0.1 K/mm3 (0.0-0.1); Basophils Percent Auto 1.4 % (0.2-1.2); Eosinophils Absolute Auto 0.3 K/mm3 (0-0.3); Eosinophils Percent Auto 5.5 % (0-4.4); Hematocrit 28.7 % (37.0-47.0); Hemoglobin 8.5 g/dL (12.0-15.0); Immature Granulocyte Absolute 0.08 K/mm3 (0.00-0.031); Immature Granulocyte Percent A 1.6 % (0-0.5); Lymphocytes Absolute Auto 1.43 K/mm3 (0.9-3.2); Mean Corpuscular HGB Conc 29.6 g/dl (32-36); Mean Corpuscular Hemoglobin 29.7 pg (26-34); Mean Corpuscular Volume 100.3 fl (80-100); Mean Platelet Volume 9.9 fl (7.4-10.4); Monocytes Absolute Auto 0.6 K/mm3 (0.1-0.6); Neutrophils Absolute Auto 2.6 K/mm3 (1.3-6.7); Neutrophils Percent Auto 51.5 % (45.5-73.1); Platelet Count Result 258 k/mm3 (150-375); Red Blood Count 2.86 M/mm3 (4.2-5.4); Red Cell Distribution Width 16.4 % (11.5-14.5); White Blood Count 5.1 K/mm3 (4.5-10.0)
[2023-05-17 06:29] LABS: Alanine Aminotransferase 9 U/L (6-35); Albumin Level 2.8 g/dL (3.5-5.1); Alkaline Phosphatase 66 U/L (38-126); Anion Gap 3 mmol/L (8-16); Aspartate Amino Transferase 19 U/L (14-36); Bilirubin,Total 0.3 mg/dL (0.2-1.3); Blood Urea Nitrogen 16 mg/dL (7-17); Calcium 8.7 mg/dL (8.4-10.2); Carbon Dioxide 37 mmol/L (22-30); Chloride 99 mmol/L (98-107); Estimated CRCL calculation 34 ml/min; Estimated Glomerular Filt Rate 60; Glucose 122 mg/dL (65-110); Potassium 4.3 mmol/L (3.4-5.0); Sodium 139 mmol/L (137-145)
[2023-05-17 07:58] LABS: Glucose Point of Care 142 mg/dl (65-105)
[2023-05-17 08:00] VITALS: BP 125/51; PULSE 69; RESP 14; TEMP 36.1; O2SAT 91
[2023-05-17] MEDS: INSULIN HUMAN ISOPHAN/REGULAR 70/30 (*BKC) 100 UNITS/ML SUB-Q ×2 (09:07→13:25)
[2023-05-17 09:08] VITALS: PULSE 72
[2023-05-17] MEDS: DOXAZOSIN MESYLATE 4 MG TABLET PO (09:08)
[2023-05-17] MEDS: DULoxetine HCL 20 MG CAPSULE.DR PO (09:08)
[2023-05-17] MEDS: METOPROLOL TARTRATE 50 MG TAB PO (09:08)
[2023-05-17] MEDS: BENZONATATE 100 MG CAPSULE PO ×2 (09:08→13:24)
[2023-05-17] MEDS: ASPIRIN 81 MG CHEWABLE TABLET PO (09:08)
[2023-05-17] MEDS: SULFAMETHOXAZOLE/TRIMETHOPRIM 800/160 MG DS TABLET 1 TAB PO (09:10)
[2023-05-17] MEDS: PANTOPRAZOLE 40 MG TABLET PO (09:10)
[2023-05-17] MEDS: FUROSEMIDE INJ 40 MG/4 ML VIAL 20 MG IV PUSH (09:10)
--- NOTE | 2023-05-17 10:17 | PCRCNOTE ---
Home o2 eval not needed if patient plan to D/C to SNF. [facility] staff will titrate patient o2 needs
[2023-05-17 11:56] LABS: Glucose Point of Care 181 mg/dl (65-105)
[2023-05-17 12:00] VITALS: BP 125/51; PULSE 69; RESP 144; TEMP 36.1; O2SAT 91
--- NOTE | 2023-05-17 12:00 | PM.DS ---
DS: Admitting Diagnosis Discharge Date 05/17/23 Admitting Diagnosis Dyspnea Hypoxia Acute hypoxic respiratory failure DS: Discharge Diagnosis Discharge Diagnosis Plan Assessment and Plan (1) Influenza A: ?Code(s): J10.1 - Influenza due to other identified influenza virus with other respiratory manifestations ?Status:?Resolved ?Assessment and Plan: resolved as evidenced by viral pcr (2) Hypoxia: ?Code(s): R09.02 - Hypoxemia ?Status:?Acute ?Assessment and Plan: -continue SPO2 Monitoring -Oxygen titration therapy in order to maintain SPO2 >93% -check apnea link monitor -home oxygen evaluation once (3) Macrocytic anemia: ?Code(s): D53.9 - Nutritional anemia, unspecified ?Status:?Acute ?Assessment and Plan: -hemoglobin is stable 8.1 (4) Neuropathy: ?Code(s): G62.9 - Polyneuropathy, unspecified ?Status:?Acute ?Assessment and Plan: -continue home medications (5) Protein calorie malnutrition: ?Code(s): E46 - Unspecified protein-calorie malnutrition ?Status:?Acute ?Assessment and Plan: -dietary consult -continue to monitor caloric intake (6) Diastolic congestive heart failure: ?Code(s): I50.30 - Unspecified diastolic (congestive) heart failure ?Status:?Acute ?Assessment and Plan: Acute on chronic diastolic congestive heart failure recent echo EF 65-70% was on Lasix daily but was discontinued at discharge.? -continue telemetry monitoring ?-continue oral Lasix 40 mg daily ?-hold? metolazone. 05/17/23: Will discharge on home diuretics (7) Chronic anticoagulation: ?Code(s): Z79.01 - custodial (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 of anticoagulants ?Status:?Acute ?Assessment and Plan: hx of AFib -continue home medication Eliquis (8) Hypertension: ?Code(s): I10 - Essential (primary) hypertension ?Status:?Chronic ?Assessment and Plan: -chronic -continue home medications (9) Urinary retention: ?Code(s): R33.9 - Retention of urine, unspecified ?Status:?Acute ?Assessment and Plan: chronic, suspect urine ret from medication, pt has? indwelling Mcallister -remove Mcallister -start voiding trial -bladder scan, retaining. 05/16/23 05/17/23: Will dc on a Mcallister with outpatient with Urology (10) UTI (urinary tract infection), bacterial: ?Code(s): N39.0 - Urinary tract infection, site not specified; A49.9 - Bacterial infection, unspecified ?Status:?Acute ?Assessment and Plan: -continue monitoring I&O Will place on Bactrim at DC Plan Labs were significant for a stable anemia, proBNP 436, albumin 2.8. She tested positive for influenza A. Chest x-ray showed cardiomegaly with minimal infiltrate or atelectasis at the lung base. She is being admitted in this setting for supportive care given hypoxia and influenza. DS: Summary Hospital Course Reason for hospitalization: Dyspnea Shortness of breath Hospital Course: Chief Complaint: Shortness of breath. Narrative: This is a pleasant 82-year-old female with insulin-dependent diabetes mellitus, hypertension, hyperlipidemia, gastroesophageal reflux disease, gout, overactive bladder, hepatic steatosis, and macular degeneration who presented to the emergency department via EMS from a local rehab facility for evaluation of shortness of breath. The patient provides the following history; her son Julio provides additional information with the patient's permission. She is known to the hospitalist service from a recent lengthy stay in which she was treated for multiple problems including diastolic congestive heart failure, urinary retention, and C diff colitis. Two months prior to her hospitalization she was up ambulating without issue however she began to have difficulties walking due to severe pain in both feet which has been an ongoing at worsening problems for nearly the last year. She was treated for gout with the usual medications however was ultimately started on st
[2023-05-17] MEDS: minoxidiL 2.5 MG TABLET 5 MG PO (13:24)
[2023-05-17 14:45] LABS: SARS-CoV-2 RNA PCR Negative (Negative)
[2023-05-17 16:00] VITALS: BP 124/49; PULSE 74; RESP 14; TEMP 35.9; O2SAT 90
== END 2023-05-17 18:00 | DRG 193 ==
LOC: ANHED 14:37 → ANH3MEDSUR 17:19
PROVIDERS: Internal Medicine; Nurse Practitioner; Physician Assistant; Admitting Provider Student in an Organized Health Care Education/Training Program; Emergency Provider Emergency Medicine; PCP Family Medicine Adolescent Medicine; Visit Provider Internal Medicine
DX: J10.1 Influenza due to other identified influenza virus with other respiratory manifestations (principal); I50.33 Acute on chronic diastolic (congestive) heart failure; N39.0 Urinary tract infection, site not specified; T83.511A Infection and inflammatory reaction due to indwelling urethral catheter, initial encounter; I48.20 Chronic atrial fibrillation, unspecified; E46 Unspecified protein-calorie malnutrition; I11.0 Hypertensive heart disease with heart failure; I70.0 Atherosclerosis of aorta; E78.1 Pure hyperglyceridemia; E11.40 Type 2 diabetes mellitus with diabetic neuropathy, unspecified; K21.9 Gastro-esophageal reflux disease without esophagitis; K76.0 Fatty (change of) liver, not elsewhere classified; N32.81 Overactive bladder; R09.02 Hypoxemia; D53.9 Nutritional anemia, unspecified; B96.1 Klebsiella pneumoniae [K. pneumoniae] as the cause of diseases classified elsewhere; R04.0 Epistaxis; Y95 Nosocomial condition; Z20.822 Contact with and (suspected) exposure to COVID-19; M10.9 Gout, unspecified; M81.0 Age-related osteoporosis without current pathological fracture; H35.3220 Exudative age-related macular degeneration, left eye, stage unspecified; H35.3110 Nonexudative age-related macular degeneration, right eye, stage unspecified; F03.90 Unspecified dementia, unspecified severity, without behavioral disturbance, psychotic disturbance, mood disturbance, and anxiety; Z11.52 Encounter for screening for COVID-19; Z79.4 Long term (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 of insulin; Z79.82 Long term (current) use of aspirin; Z68.22 Body mass index [BMI] 22.0-22.9, adult
CPT/HCPCS: 36415; 36600; 71045; 71046; 72148; 80048; 80053; 81001; 82375; 82607; 82728; 82746; 82805; 82948; 83050; 83540; 83550; 83605; 83735; 83880; 84132; 84443; 84484; 85025; 85027; 85610; 85730; 86850; 86900; 86901; 87040; 87077; 87086; 87088; 87186; 87635; 87637; 93005; 94640; 96374; 97110; 97116; 97162; 97165; 97530; 97535; 99285; A9270; G0378; J0696; J0713; J1815; J1940; J2060; J3475

== ENCOUNTER 2023-09-30 10:25 | Inpatient (IN) | payer MEDICARE, SELFPAY ==
[2023-09-30] VITALS (8 sets, daily range): BP systolic 127–139; BP diastolic 43–66; PULSE 52–65; RESP 15–20; TEMP 36.2–36.9; O2SAT 86–100; BMI 30.7
--- NOTE | ~2023-09-30 | CT_ITS ---
EXAMINATION: CTA chest PE protocol DATE: 10/03/2023 16:57 INDICATION: sob TECHNIQUE: Computed tomography angiography (CTA) of the chest was performed with 100 mL Omnipaque-350 intravenous contrast timed to evaluate the pulmonary arteries. Coronal maximum intensity projection 3D-reconstructions were created by the technologist. The dose-length product (DLP) was 523.57 mGy-cm. Automated exposure control and iterative reconstruction technique were employed. COMPARISON: 04/13/2023; CT abdomen 04/13/2023. FINDINGS: Lung parenchyma and airways: Bibasilar scar/atelectasis. Mild emphysematous change. 7 mm pleural-base d right lower lobe nodule, stable, likely benign granuloma. Patent airways. Mild diffuse groundglass opacities in the central lungs, with peripheral sparing. Pleura: Unremarkable. Thoracic inlet, axillae and chest wall: Unremarkable. Moderate arch calcification. Thoracic aorta: No significant dilation. No dissection. Mediastinum: Dilated central pulmonary arteries as can be seen with pulmonary arterial hypertension. Heart and pericardium: Mild cardiomegaly. Coronary artery calcifications: Moderate. Upper abdomen: Large, thinly septated, partially visualized left upper quadrant cystic mass, previous ly diagnosed as a likely benign renal cyst. Bones: No acute osseous finding. Pulmonary arteries: Study quality: Adequate. No pulmonary emboli detected. IMPRESSION: No CT evidence of acute pulmonary embolus. Mild diffuse central groundglass opacities in the lungs may represent mild edema, infection, or pneum onitis. Otherwise, no acute process detected in the chest. Reviewed, dictated and finalized at location K. IMPRESSION: No CT evidence of acute pulmonary embolus. Mild diffuse central groundglass opacities in the lungs may represent mild roberto a, infection, or pneumonitis. Otherwise, no acute process detected in the chest.
--- NOTE | ~2023-09-30 | XR_ITS ---
Clinical Indication: Shortness of breath AP and lateral views of the chest: Comparison: 05/11/2023 Findings: The lungs are clear, without evidence of focal consolidation or pleural effusion. Cardiome diastinal silhouette is stable. Bones and soft tissues are unremarkable. Impression: Clear lungs. Reviewed, dictated and finalized at location . Impression: Clear lungs.
--- NOTE | 2023-09-30 10:40 | ECG_ITS ---
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 Measurements Intervals [place] Rate: 52 P: 27 IN: 147 QRS: -7 QRSD: 82 T: 16 QT: 415 QTc: 389 Interpretive Statements SINUS BRADYCARDIA POOR R-WAVE PROGRESSION LOW-VOLTAGE QRS ABNORMAL ECG No previous ECG available for comparison Electronically Signed On 10-01-2023 07:45:08 CDT by Sandoval Higuera M.D.
[2023-09-30 11:10] LABS: Basophils Percent Auto 0.4 % (0.2-1.2); Eosinophils Absolute Auto 0.2 K/mm3 (0-0.3); Eosinophils Percent Auto 2.7 % (0-4.4); Hematocrit 25.4 % (37.0-47.0); Hemoglobin 7.2 g/dL (12.0-15.0); Immature Granulocyte Absolute 0.03 K/mm3 (0.00-0.031); Immature Granulocyte Percent A 0.5 % (0-0.5); Lymphocytes Absolute Auto 0.77 K/mm3 (0.9-3.2); Lymphocytes Percent Auto 13.8 % (18.3-44.2); Mean Corpuscular HGB Conc 28.3 g/dl (32-36); Mean Corpuscular Hemoglobin 28.1 pg (26-34); Mean Corpuscular Volume 99.2 fl (80-100); Mean Platelet Volume 10.1 fl (7.4-10.4); Monocytes Absolute Auto 0.5 K/mm3 (0.1-0.6); Monocytes Percent Auto 8.4 % (2.6-8.5); Neutrophils Absolute Auto 4.1 K/mm3 (1.3-6.7); Neutrophils Percent Auto 74.2 % (45.5-73.1); Platelet Count Result 188 k/mm3 (150-375); Red Blood Count 2.56 M/mm3 (4.2-5.4); White Blood Count 5.6 K/mm3 (4.5-10.0)
[2023-09-30 11:28] LABS: INR 1.9; Prothrombin Time 22.7 Seconds (11.1-14.7)
[2023-09-30 11:29] LABS: Partial Thromboplastin Time 35.4 Seconds (22.3-36.8)
[2023-09-30 11:34] LABS: Alanine Aminotransferase 13 U/L (6-35); Albumin Level 3.1 g/dL (3.5-5.1); Alkaline Phosphatase 68 U/L (38-126); Anion Gap 4 mmol/L (4-12); Anisocytosis 1+; Aspartate Amino Transferase 15 U/L (14-36); Bilirubin,Total 0.6 mg/dL (0.2-1.3); Blood Urea Nitrogen 39 mg/dL (7-17); Calcium 8.3 mg/dL (8.4-10.2); Carbon Dioxide 29 mmol/L (22-30); Chloride 110 mmol/L (98-107); Estimated CRCL calculation 24 ml/min; Estimated Glomerular Filt Rate 33; Glucose 123 mg/dL (65-110); Hypochromasia 1+; Platelet Estimate Adequate (Adequate); Potassium 4.6 mmol/L (3.4-5.0); Sodium 143 mmol/L (137-145)
[2023-09-30 11:35] LABS: Schistocytes None Seen
[2023-09-30 11:47] LABS: NT Pro B Type Natriuretic Pept 2220 pg/mL (19.9-100); Troponin I < 0.012 ng/mL (0.000-0.034)
--- NOTE | 2023-09-30 13:17 | ED.GENADULT ---
HPI - General Adult General Chief complaint: Weakness Stated complaint: chest pain, bilateral foot pain Time Seen by Provider: 09/30/23 10:46 History of Present Illness HPI narrative: this is an 82-year-old female w/ a hx of CHF presenting for shortness of breath and lower extremity edema. the patient lives with her son who provides most of her care. She is on metolazone and spironolactone, however she is not able to get up to use the restroom very well due to lower extremity edema. Because of this she has stopped taking her diuretics. Patient has also been having worsening shortness of breath is no longer able to sleep flat. Patient denies fevers chills chest pain abdominal pain or urinary symptoms. Related Data Home Medications Medication Instructions Recorded Confirmed acetaminophen 500 mg tablet 1,000 mg PO Q6H PRN pain 1-3 04/02/23 05/06/23 (Tylenol Extra Strength) bisacodyl 10 mg rectal suppository 10 mg RECTAL BID PRN constipation 06/13/23 empagliflozin 10 mg tablet 10 mg PO DAILY 06/13/23 (Jardiance) ondansetron 8 mg disintegrating 8 mg PO Q6H PRN nausea and vomiting 06/13/23 tablet sodium chloride 0.65 % nasal spray 1 spray intranasal Q2H nasal 06/13/23 aerosol ([place]rakow Saline) Allergies Allergy/AdvReac Type Severity Reaction Status Date / Time Penicillins Allergy Severe HIVES Verified 05/06/23 12:46 hydrocodone AdvReac Severe SEVERE GI Verified 05/06/23 12:46 UPSET, N/V nitrofurantoin AdvReac Severe Swelling Verified 05/06/23 12:46 propoxyphene AdvReac Severe GI UPSET Verified 05/06/23 12:46 acetaminophen AdvReac Unknown Unknown Verified 05/06/23 12:46 [From Darvocet-N] adhesive tape AdvReac Unknown Unknown Verified 05/06/23 12:46 amlodipine AdvReac Unknown Unknown Verified 05/06/23 12:46 glimepiride AdvReac Unknown Unknown Verified 05/06/23 12:46 metformin AdvReac Unknown Unknown Verified 05/06/23 12:46 omeprazole [From Prilosec] AdvReac Unknown Unknown Verified 05/06/23 12:46 pioglitazone AdvReac Unknown Unknown Verified 05/06/23 12:46 simvastatin [From Zocor] AdvReac Unknown Unknown Verified 05/06/23 12:46 [facility] Past Medical History Medical History Acquired hypertriglyceridemia Age related osteoporosis Aortic atherosclerosis Atrial fibrillation Chronic anticoagulation Exudative age-related macular degeneration, left eye, with inactive choroidal neovascularization Gastroesophageal reflux disease Gout Hepatic steatosis Hypertension 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, right eye, intermediate dry stage Overactive bladder Surgical History Surgical History History of cholecystectomy History of repair of rotator cuff Family History Family History Father Asthma Cerebrovascular accident Family history of diabetes mellitus in first degree relative Sibling Family history of diabetes mellitus in first degree relative Family history of malignant neoplasm of urinary bladder Mother Family history of heart disease in male family member before age 55 Other Family history of arthritis Hypertension Social History Social History Social History: Surrogate medical decision maker: Julio Ventura, son. Code status: Full code. Smoking packs per day: 1 Smoking cigarettes per day: 20.0 Years smoked: 15 Smoking pack-years: 15.00 Smoking status: Never smoker Tobacco type: cigarettes Second hand tobacco smoke exposure: Yes Alcohol intake: never Substance use: never Substance use type: does not use Do You Feel Safe in your Home?: Yes Lack of Transportation: No Lack of Food: Never True Current Housing: I Have Housing Concerned About Future Housing: No Difficulty Paying Gas/Electric Bills:
[2023-09-30] MEDS: FUROSEMIDE INJ 40 MG/4 ML VIAL IV PUSH (13:33)
--- NOTE | 2023-09-30 16:04 | ADMGEN ---
This patient, Constanza Ventura, was admitted to [facility] Surg Room 300-01. Patient/family oriented to hospital policies and general routines including ID bracelet, bed and alarms, visiting hours, pain management, procedures, bathroom and other care routines, personal items, smoking policy, room service/diet, and visiting hours. Information on how to activate the Rapid Response Team has been discussed. Patient/Family are encouraged to report perceived risks to care and to ask questions if they do not understand what they are told or what they should do.
--- NOTE | 2023-09-30 16:10 | PM.IMHP ---
H&P: HPI History of Present Illness Date/Time: 09/30/23 16:10 Chief Complaint: Feet Pain, SOB Narrative: 82 y/o F presents here with bilateral foot pain, SOB, hypoxia, and intermittent chest pain with PMH of Afib, GERD, gout, HTN, DM2, and OAB. The patient presents here from home for further evaluation of feet pain and shortness of breath. Patient reports the shortness of breath has been worsening over the last few days, she has been unable to tolerate laying flat, and is aggravated by ambulation. Patient stopped taking her metolazone and spironolactone due to experiencing urinary frequency and did not want to have to get up to use the restroom due to the lower extremity discomfort. However since then the lower extremity edema has worsened and the shortness of breath has worsened. She currently lives at home with her son who provides most of her care. Upon arrival to the emergency department her O2 saturation was 86% on RA. Initial VS at presentation: 98.4? F, HR 52, RR 15, 139/66, and 86% on RA. Placed on 2L nasal cannula and now 95%. ED workup showed: No leukocytosis, hemoglobin 7.2, INR 1.9, chloride 110, creatinine 1.5 and GFR 33, glucose 123, calcium 8.3, albumin 3.1, BNP 2220. Review of Systems Review of Systems: All systems reviewed & are unremarkable except as noted in HPI and below PMFSH Past Medical History Medical History Acquired hypertriglyceridemia Age related osteoporosis Aortic atherosclerosis Asthma Atrial fibrillation B12 deficiency Chronic anticoagulation Chronic systolic (congestive) heart failure Gastroesophageal reflux disease GERD (gastroesophageal reflux disease) Gout Hepatic steatosis Hypertension Insulin dependent type 2 diabetes mellitus Macular degeneration Nonexudative age-related macular degeneration, right eye, intermediate dry stage Overactive bladder Surgical History Surgical History History of cholecystectomy History of repair of rotator cuff Family History Family History Father Asthma Cerebrovascular accident Family history of diabetes mellitus in first degree relative Sibling Family history of diabetes mellitus in first degree relative Family history of malignant neoplasm of urinary bladder Mother Family history of heart disease in male family member before age 55 Other Family history of arthritis Hypertension Social History Social History Social History: Surrogate medical decision maker: Julio Ventura, son. Code status: Full code. Smoking packs per day: 1 Smoking cigarettes per day: 20.0 Years smoked: 15 Smoking pack-years: 15.00 Smoking status: Never smoker Second hand tobacco smoke exposure: Yes Alcohol intake: never Substance use: never Substance use type: does not use Do You Feel Safe in your Home?: No Lack of Transportation: No Lack of Food: Never True Current Housing: I Have Housing Concerned About Future Housing: No Difficulty Paying Gas/Electric Bills: No Difficulty Paying for Meds: No Currently Unemployed: No Education: High School Diploma/GED Difficulty w/ Childcare or Family Care: No Living arrangements: with family Additional living arrangements comments: Lives in [place]. Son Julio stays with her. Occupation/Education: retired Spiritual care concerns: No Meds Home Medications and Allergies Home Medications Medication Instructions Recorded Confirmed Type acetaminophen 500 mg tablet 1,000 mg PO Q6H PRN pain 1-3 04/02/23 09/30/23 History (Tylenol Extra Strength) aspirin 81 mg chewable tablet 81 mg PO DAILY@0800 #30 tabs 04/29/23 09/30/23 Rx (Children's Aspirin) spironolactone 50 mg tablet 50 mg PO DAILY #90 tabs 06/14/23 09/30/23 Rx doxazosin 8 mg tab
[2023-09-30 16:56] LABS: Glucose Point of Care 136 mg/dl (65-105)
[2023-09-30 20:25] LABS: Glucose Point of Care 162 mg/dl (65-105)
[2023-09-30] MEDS: TOLNAFTATE 1% POWDER 45 GM BTL 1 APPLIC TOPICAL (21:04)
[2023-10-01] VITALS (14 sets, daily range): BP systolic 114–141; BP diastolic 48–68; PULSE 56–85; RESP 16–24; TEMP 36.1–36.7; O2SAT 91–100
--- NOTE | 2023-10-01 | ECHO_ITS ---
Patient Info Name: Constanza Ventura Age: 82 years : 1940 Gender: Female Ht: 62 in Wt: 168 lbs BSA: 1.85 m2 HR: 56 bpm BP: 141 / 56 mmHg Heart Rhythm: Sinus Rhythm Technical Quality: Good Exam Date: 10/01/2023 10:19 AM Exam Location: Echo Lab Patient Status: Inpatient Admit Date: 09/30/2023 Staff Ordering Physician: Nathalia Leone APRN Store Clerk: Jalen Metzger RDCS Attending Provider: Jitendra Evans MD Referring Physician: Vasu PECK; Exam Type: CA echo doppler color flow Study Info Indications - elevated BNP R06.02 - Shortness of breath Complete two-dimensional, color flow and Doppler transthoracic echocardiogram is performed. Summary 1. Complete two-dimensional, color flow and Doppler transthoracic echocardiogram is performed. 2. Mild concentric LVH with hyperdynamic systolic function. 3. Left atrial enlarged. 4. Sclerotic but not significantly stenotic aortic valve. 5. Sinus rhythm. Left Ventricle Left ventricular chamber dimension is normal. Left ventricular systolic function is hyperdynamic, estimated at >70%. There is mild concentric increased left ventricular wall thickness. The left ventricular diastolic function is grade I diastolic dysfunction. Right Ventricle Right ventricular chamber dimension is normal. Left Atria Left atrial chamber dimension is moderately enlarged. Right Atria Right atrial chamber dimension is normal. Aortic Valve The aortic valve is trileaflet. There is mild aortic valve sclerosis. Pulmonic Valve The pulmonic valve is normal. Mitral Valve The mitral valve has normal leaflets. The mitral valve annulus is mildly calcified. Tricuspid Valve The tricuspid valve leaflets are normal. Pericardium/Pleural The pericardium appears normal. Aorta The aortic root size at the sinus of Valsalva is normal. Left Ventricular Outflow Tract Name Value Normal LVOT 2D LVOT Diameter 1.9 cm LVOT Doppler LVOT Peak Gradient 11 mmHg LVOT Mean Gradient 6 mmHg LVOT VTI 38 cm LVOT VTI/AV VTI Ratio 0.6 LVOT Stroke Volume 104 ml LVOT CO 6.3 l/min LVOT CI 3.4 l/min/m2 Pulmonic Valve Name Value Normal PV Doppler PV Peak Gradient 8 mmHg PV Regurgitation Doppler IN Peak End Diastolic Velocity 107 cm/s Mitral Valve Name Value Normal MV Doppler MV Peak Gradient 16 mmHg MV Mean Gradient
[2023-10-01] MEDS: ALBUTEROL SULFATE (*SP) INHALER 2 PUFF INHALATION ×2 (01:09→04:34)
[2023-10-01 02:54] LABS: Creatinine Urine 13.5 mg/dL; Total Protein Urine Random 6 mg/dL
[2023-10-01 06:27] LABS: Creatine Kinase 28 U/L (30-135)
[2023-10-01 06:30] LABS: Iron 15 ug/dL (37-170)
[2023-10-01 06:41] LABS: Percent Iron Saturation 4 % (20-50)
[2023-10-01 07:00] LABS: Hemoglobin A1C 6.3 % (<5.7)
[2023-10-01 07:24] LABS: Glucose Point of Care 134 mg/dl (65-105)
[2023-10-01 07:32] LABS: Folic Acid 14.1 ng/mL (2.76->20)
--- NOTE | 2023-10-01 08:00 | PM.IMPN ---
Progress Note: A&P Assessment and Plan (1) Respiratory failure: Code(s): J96.90 - Respiratory failure, unspecified, unspecified whether with hypoxia or hypercapnia Status: Acute Assessment and Plan: - CXR: clear lungs - currently requiring supplemental O2 - 2 L nasal cannula-continue- wean as tolerated - EKG, initial: Sinus bradycardia - Hgb 7.2, previously 8.5 on 05/17/23 - suspect hypoxia secondary to CHF exacerbation- however very likely due to anemia - monitor (2) CHF exacerbation: Qualifiers: Heart failure type: combined systolic and diastolic Qualified Code(s): I50.43 - Acute on chronic combined systolic (congestive) and diastolic (congestive) heart failure Code(s): I50.9 - Heart failure, unspecified Status: Acute Assessment and Plan: - BNP 2219 - most recent echo (03/2023): Systolic function normal, grade 1 diastolic dysfunction, EF 65-70% - update echo-ordered prior - currently on: spironolactone and metolazone, hold. Continue as Lasix 40 mg IVP daily. - daily weights - monitor I&Os - trend renal function - will consult cardiology to help with management and recommendations and re establish f/u as she would need a close f/u (3) ANGELINA (acute kidney injury): Code(s): N17.9 - Acute kidney failure, unspecified Status: Acute Assessment and Plan: - creatinine 1.5 and GFR 33 upon admission- today 1.5-01-nlfcmwkm improved - previously 0.9 and GFR 60 on 05/17/2023 - no prior documented history of CKD - add CK, urine sodium, protein/creatinine, urine protein, urine creatinine - monitor I&Os - trend renal function - trend electrolytes, correct as needed - suspect injury due to volume overload, will trial diuresis - consider consultation to Nephrology if renal function worsens (4) Anemia: Code(s): D64.9 - Anemia, unspecified Status: Acute Assessment and Plan: - history of B12 deficiency - hemoglobin 7.2, previously 8.5 on 05/17/2023 - MCV normal, MCHC low - iron, TIBC, ferritin, B12, folic acid, and TSH with reflex - hg is 6.8 09/30- no obvious source of bleeding- will order recheck now - will order type/cross- and transfuse 1 unit RPBC if repeat is under 7 - will order venofer -- trend CBC- recheck within 1 h after transfusion (5) Insulin dependent type 2 diabetes mellitus: Code(s): E11.9 - Type 2 diabetes mellitus without complications; Z79.4 - skilled nursing (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 of insulin Status: Acute Assessment and Plan: - hypoglycemia protocol - POC blood glucose ACHS - home medication: Continue Lantus 8 units HS, hold U-100 insulin (NF). - correct regimen ordered - low dose TIDWM - A1C ordered - diabetic diet (6) Hypertension: Code(s): I10 - Essential (primary) hypertension Status: Chronic Assessment and Plan: - chronic - continue home medications: Hydralazine 25 mg t.i.d., metoprolol 125 mg b.i.d., lisinopril 20 mg b.i.d. - monitor Plan Patient self discontinued her diuretics. Now short of breath and has worsening lower extremity edema. Update echo. Lasix 40 mg IV daily. Monitor I&Os. Also has ANGELINA, suspect this is due to volume overload. Trend renal function. Anemia appears worse than baseline- venofer is ordered and 1 unit of PRBC. Card consulted- appreciate recommendations. Diet: diabetic GI Prophylaxis: Not currently indicated DVT Prophylaxis: holding Eliquis for now- will continue with SCD Lines: Peripheral Code Status: Full code Time Spent With Patient Time with patient: 25 - 35 minutes Subjective Date/time seen: 10/01/23 08:00 Interval history: 82 y.o female with PMH of Afib-chronich eliquis, GERD,Left ventricular diastolic disfunction, gout, HTN, DM2, and OAB admitted from er for c/o feet pain and SOB. SOB had been worsening over the last few days, she has been unable to tolerate laying flat, SOB worse with ambulation. Patient stopped taking her metol
[2023-10-01 08:15] LABS: Basophils Percent Auto 0.4 % (0.2-1.2); Eosinophils Absolute Auto 0.2 K/mm3 (0-0.3); Eosinophils Percent Auto 3.5 % (0-4.4); Hematocrit 23.9 % (37.0-47.0); Immature Granulocyte Absolute 0.02 K/mm3 (0.00-0.031); Immature Granulocyte Percent A 0.4 % (0-0.5); Lymphocytes Absolute Auto 0.97 K/mm3 (0.9-3.2); Lymphocytes Percent Auto 21.4 % (18.3-44.2); Mean Corpuscular HGB Conc 28.5 g/dl (32-36); Mean Corpuscular Hemoglobin 28.5 pg (26-34); Mean Platelet Volume 10.5 fl (7.4-10.4); Monocytes Absolute Auto 0.5 K/mm3 (0.1-0.6); Monocytes Percent Auto 10.2 % (2.6-8.5); Neutrophils Absolute Auto 2.9 K/mm3 (1.3-6.7); Neutrophils Percent Auto 64.1 % (45.5-73.1); Platelet Count Result 177 k/mm3 (150-375); Red Blood Count 2.39 M/mm3 (4.2-5.4); Red Cell Distribution Width 15.7 % (11.5-14.5); White Blood Count 4.5 K/mm3 (4.5-10.0)
[2023-10-01 08:18] LABS: Hemoglobin 6.8 g/dL (12.0-15.0)
[2023-10-01 08:24] LABS: Anion Gap 1 mmol/L (4-12); Blood Urea Nitrogen 38 mg/dL (7-17); Calcium 8.6 mg/dL (8.4-10.2); Carbon Dioxide 34 mmol/L (22-30); Chloride 108 mmol/L (98-107); Estimated CRCL calculation 26 ml/min; Estimated Glomerular Filt Rate 36; Glucose 132 mg/dL (65-110); Potassium 4.7 mmol/L (3.4-5.0); Sodium 143 mmol/L (137-145)
[2023-10-01] MEDS: FUROSEMIDE INJ 40 MG/4 ML VIAL IV PUSH (08:56)
[2023-10-01] MEDS: PANTOPRAZOLE 40 MG TABLET PO (08:56)
[2023-10-01] MEDS: METOPROLOL TARTRATE 25 MG TABLET 125 MG PO ×2 (08:56→21:07)
[2023-10-01] MEDS: APIXABAN 5 MG TABLET PO (08:57)
[2023-10-01] MEDS: DOXAZOSIN MESYLATE 4 MG TABLET 8 MG PO (08:57)
[2023-10-01] MEDS: ASPIRIN 81 MG CHEWABLE TABLET PO (08:57)
[2023-10-01] MEDS: lisinopriL 20 MG TABLET PO ×2 (08:57→21:07)
[2023-10-01] MEDS: hydrALAZINE HCL 25 MG TABLET PO ×3 (08:57→17:37)
[2023-10-01] MEDS: TOLNAFTATE 1% POWDER 45 GM BTL 1 APPLIC TOPICAL ×2 (09:03→21:27)
[2023-10-01] MEDS: NAPROXEN 250 MG TABLET PO ×2 (09:03→14:25)
[2023-10-01 09:11] LABS: Anisocytosis 1+; Hypochromasia 1+; Platelet Estimate Adequate (Adequate); Schistocytes None Seen
[2023-10-01] MEDS: IRON SUCROSE COMPLEX 200 MG in SODIUM CHLORIDE 0.9% IV 100 ML 220 MG IVPB (10:18)
[2023-10-01 10:31] LABS: Hematocrit 24.2 % (37.0-47.0)
[2023-10-01 10:40] LABS: Hemoglobin 6.9 g/dL (12.0-15.0)
[2023-10-01 11:50] LABS: Glucose Point of Care 190 mg/dl (65-105)
--- NOTE | 2023-10-01 13:50 | PM.CNCAR ---
Assessment and Plan Assessment and plan (1) Anemia: Code(s): D64.9 - Anemia, unspecified Status: Acute (2) Diastolic congestive heart failure: Code(s): I50.30 - Unspecified diastolic (congestive) heart failure Status: Acute (3) Atrial fibrillation: Code(s): I48.91 - Unspecified atrial fibrillation Status: Acute Plan This is an 82-year-old woman coming in with shortness of breath she is known to have hypertension and left ventricular diastolic dysfunction. Her exam shows moderate lower extremity edema her lungs however look completely here on chest x-ray. It is therefore my opinion that her dyspnea is probably not related to a CHF exacerbation more so than it is related to severe anemia. I completely agree with the decision to provide a packed red cell transfusion and I believe her anticoagulation should be stopped for this reason. Another echocardiogram was done this probably will not look significantly different than last year's exam but that will be reviewed later. I agree that she would benefit from some diuresis because of her lower extremity edema but the the principal problem I believe is her anemia. Will follow with you during this hospital stay regarding her response to treatment. Sandoval Higuera MD [facility] History of Present Illness History of Present Illness Consult date/time: 10/01/23 13:50 Reason For Visit: CHF Narrative: This is an 82-year-old woman I am seeing at the request of the hospitalist for the stated reason of CHF exacerbation. She is not known to me prior to this consultation and she is a decidedly poor historian regarding her medical problems and history. It is clear that she was brought to the hospital yesterday because of shortness of breath. Her evaluation in the emergency room included a chest x-ray that looks clear as far as CHF is concerned she does have some increasing lower extremity edema recently it has been noted in the chart that the patient is baseline on some diuretics which she stopped on her own accord. Because of the edema it was felt to be primarily a CHF exacerbation initially. Her laboratory data also is very concerning for severe anemia with a hemoglobin that his decline to 6.2. She does not have any obvious significant hemorrhage she does state that she has frequent nose bleeds at home but does not have any other significant bleeding issues that she has noticed. Her cardiac history according to the chart and my partners previous consultation notes seem to indicate that she has atrial fibrillation, hypertension and a history of atypical sounding chest pain in the past. She did have a Lexiscan nuclear stress test that was done here last year to evaluate that symptom which was essentially negative. She was not followed in our office after this consultation. She has been continued on anticoagulation presumably because of her atrial fibrillation. The patient is uncomfortable appearing this afternoon but does not have any other complaints specifically. Packed red cell transfusion has appropriately been ordered but has not yet been started. Previous evaluation last year with an echocardiogram demonstrated vigorous left ventricular systolic function. Another echocardiogram has been repeated today, findings are pending Review of Systems Review of Systems: ROS unobtainable: Yes unobtainable due to mental status PMFSH Past Medical History Medical History Acquired hypertriglyceridemia Age related osteoporosis Aortic atherosclerosis Asthma Atrial fibrillation B12 deficiency Chronic anticoagulation Chronic systolic (congestive) heart failure Gastroesophageal reflux disease GERD (gastroesophageal reflux disease) Gout Hepatic steatosis Hypertension Insulin dependent type 2 diabetes mellitus Macular degeneration Nonexudative age-related macular degeneration, right eye, intermediate dry stage Overactiv
[2023-10-01 16:37] LABS: Glucose Point of Care 168 mg/dl (65-105)
[2023-10-01 17:59] LABS: Hematocrit 28.3 % (37.0-47.0); Hemoglobin 8.4 g/dL (12.0-15.0)
[2023-10-01 19:48] LABS: Creatinine Urine 13.7 mg/dL; Total Protein Urine Random 7 mg/dL; Ur Ttl Prot Creatinine Ratio 0.51 mg/mg (0-0.20)
[2023-10-01 19:54] LABS: Sodium Urine Random 158 meq/L
[2023-10-01 20:44] LABS: Glucose Point of Care 191 mg/dl (65-105)
[2023-10-01] MEDS: INSULIN GLARGINE (*BKC) 100 UNITS/ML 8 UNITS SUB-Q (21:06)
[2023-10-02] VITALS (10 sets, daily range): BP systolic 104–150; BP diastolic 50–72; PULSE 59–66; RESP 16–22; TEMP 36.4–36.6; O2SAT 92–98
--- NOTE | 2023-10-02 07:11 | PM.IMPN ---
Progress Note: A&P Assessment and Plan (1) Respiratory failure: Code(s): J96.90 - Respiratory failure, unspecified, unspecified whether with hypoxia or hypercapnia Status: Acute Assessment and Plan: - CXR: clear lungs -off oxygen today-improved - EKG, initial: Sinus bradycardia - Hgb 8.4 recheck yesterday - suspect hypoxia secondary to anemia - monitor (2) CHF exacerbation: Qualifiers: Heart failure type: combined systolic and diastolic Qualified Code(s): I50.43 - Acute on chronic combined systolic (congestive) and diastolic (congestive) heart failure Code(s): I50.9 - Heart failure, unspecified Status: Acute Assessment and Plan: - BNP 2220 - most recent echo (03/2023): Systolic function normal, grade 1 diastolic dysfunction, EF 65-70% - update echo-ordered prior - currently on: spironolactone and metolazone, hold. Continue as Lasix 40 mg IVP daily. - daily weights - monitor I&Os- not accurate i/o as there are two unmeasured voids - utilize external catheter to monitor urine output - trend renal function - will consult cardiology to help with management and recommendations and re establish f/u as she would need a close f/u (3) ANGELINA (acute kidney injury): Code(s): N17.9 - Acute kidney failure, unspecified Status: Acute Assessment and Plan: - creatinine 1.5 and GFR 33 upon admission- today cr 1 and gfr 53- improved - previously 0.9 and GFR 60 on 05/17/2023 - no prior documented history of CKD - add CK, urine sodium, protein/creatinine, urine protein, urine creatinine - monitor I&Os- not accurate I/O recorded- 1 unmeasured-but pt is clinically improving- breathing better and BLE edema improved - trend renal function - trend electrolytes, correct as needed - suspect injury due to volume overload, will trial diuresis - consider consultation to Nephrology if renal function worsens (4) Anemia: Code(s): D64.9 - Anemia, unspecified Status: Acute Assessment and Plan: - history of B12 deficiency - hemoglobin 7.2, previously 8.5 on 05/17/2023 - MCV normal, MCHC low - iron, TIBC, ferritin, B12, folic acid, and TSH with reflex - hg is 6.8 6/8- no obvious source of bleeding- transfuse 1 unit RPBC - received venofer 09/30 -- trend CBC- ordered daily checks -continue protonix -hg this am-8.1 (5) Insulin dependent type 2 diabetes mellitus: Code(s): E11.9 - Type 2 diabetes mellitus without complications; Z79.4 - rubber 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 - correct regimen ordered - low dose TIDWM - A1C ordered - diabetic diet (6) Hypertension: Code(s): I10 - Essential (primary) hypertension Status: Chronic Assessment and Plan: - chronic - continue home medications: Hydralazine 25 mg t.i.d., metoprolol 125 mg b.i.d., lisinopril 20 mg b.i.d. - monitor Plan Patient self discontinued her diuretics. Now short of breath and has worsening lower extremity edema. Update echo. Lasix 40 mg IV daily. Monitor I&Os. Also has ANGELINA, suspect this is due to volume overload. Trend renal function. Anemia appears worse than baseline- venofer is ordered and 1 unit of PRBC. Card consulted- appreciate recommendations. Work with PT/OT. Diet: diabetic GI Prophylaxis: Not currently indicated DVT Prophylaxis: holding Eliquis for now- will continue with SCD Lines: Peripheral Code Status: Full code Time Spent With Patient Time with patient: 25 - 35 minutes Subjective Date/time seen: 10/02/23 07:11 Interval history: 82 y.o female with PMH of Afib-chronich eliquis, GERD,Left ventricular diastolic disfunction, gout, HTN, DM2, and OAB admitted from er for c/o feet pain and SOB. SOB had been worsening over the last few days, she has been unable to tolerate laying
[2023-10-02 07:12] LABS: Glucose Point of Care 164 mg/dl (65-105)
[2023-10-02 08:12] LABS: Hematocrit 28.3 % (37.0-47.0); Hemoglobin 8.1 g/dL (12.0-15.0); Mean Corpuscular HGB Conc 28.6 g/dl (32-36); Mean Corpuscular Hemoglobin 28.2 pg (26-34); Mean Corpuscular Volume 98.6 fl (80-100); Platelet Count Result 185 k/mm3 (150-375); Red Blood Count 2.87 M/mm3 (4.2-5.4); Red Cell Distribution Width 15.2 % (11.5-14.5)
[2023-10-02 08:22] LABS: Anion Gap -1 mmol/L (4-12); Blood Urea Nitrogen 32 mg/dL (7-17); Calcium 8.5 mg/dL (8.4-10.2); Carbon Dioxide 38 mmol/L (22-30); Chloride 104 mmol/L (98-107); Estimated CRCL calculation 36 ml/min; Estimated Glomerular Filt Rate 53; Glucose 177 mg/dL (65-110); Potassium 4.1 mmol/L (3.4-5.0); Sodium 141 mmol/L (137-145)
[2023-10-02] MEDS: FUROSEMIDE INJ 40 MG/4 ML VIAL IV PUSH (08:50)
[2023-10-02] MEDS: METOPROLOL TARTRATE 25 MG TABLET 125 MG PO ×2 (08:50→20:58)
[2023-10-02] MEDS: PANTOPRAZOLE 40 MG TABLET PO (08:50)
[2023-10-02] MEDS: TOLNAFTATE 1% POWDER 45 GM BTL 1 APPLIC TOPICAL ×2 (08:51→21:00)
[2023-10-02] MEDS: DOXAZOSIN MESYLATE 4 MG TABLET 8 MG PO (08:51)
[2023-10-02] MEDS: hydrALAZINE HCL 25 MG TABLET PO ×3 (08:51→18:07)
[2023-10-02] MEDS: lisinopriL 20 MG TABLET PO ×2 (08:51→20:58)
[2023-10-02] MEDS: FERROUS SULFATE DRIED 142 MG TABCR PO (08:51)
[2023-10-02] MEDS: ALBUTEROL SULFATE (*SP) INHALER 2 PUFF INHALATION (09:05)
[2023-10-02 11:09] LABS: Glucose Point of Care 227 mg/dl (65-105)
[2023-10-02] MEDS: INSULIN ASPART (*BKC) 100 UNITS/ML SUB-Q (11:54)
[2023-10-02 16:30] LABS: Glucose Point of Care 142 mg/dl (65-105)
[2023-10-02 20:37] LABS: Glucose Point of Care 240 mg/dl (65-105)
[2023-10-02] MEDS: INSULIN GLARGINE (*BKC) 100 UNITS/ML 8 UNITS SUB-Q (20:55)
[2023-10-03 06:00] VITALS: BP 145/50; PULSE 63; RESP 20; TEMP 36.8; O2SAT 96
[2023-10-03 06:36] LABS: Hematocrit 28.9 % (37.0-47.0); Hemoglobin 8.2 g/dL (12.0-15.0); Mean Corpuscular HGB Conc 28.4 g/dl (32-36); Mean Corpuscular Hemoglobin 27.9 pg (26-34); Mean Corpuscular Volume 98.3 fl (80-100); Platelet Count Result 199 k/mm3 (150-375); Red Blood Count 2.94 M/mm3 (4.2-5.4); Red Cell Distribution Width 15.1 % (11.5-14.5); White Blood Count 5.5 K/mm3 (4.5-10.0)
[2023-10-03 06:48] LABS: Blood Urea Nitrogen 25 mg/dL (7-17); Calcium 8.6 mg/dL (8.4-10.2); Carbon Dioxide > 40 mmol/L (22-30); Chloride 102 mmol/L (98-107); Estimated CRCL calculation 40 ml/min; Estimated Glomerular Filt Rate 60; Glucose 155 mg/dL (65-110); Potassium 3.8 mmol/L (3.4-5.0); Sodium 142 mmol/L (137-145)
--- NOTE | 2023-10-03 07:49 | PM.IMPN ---
Progress Note: A&P Assessment and Plan (1) Respiratory failure: Code(s): J96.90 - Respiratory failure, unspecified, unspecified whether with hypoxia or hypercapnia Status: Acute Assessment and Plan: - CXR: clear lungs - EKG, initial: Sinus bradycardia - Hgb 8.4 recheck yesterday - suspect hypoxia secondary to anemia - Tried to wean her off o2 yesterday-did ok for a while-then sats dropped to 88's. Per her report she normally doensot wear oxygen at home and reports no NEVILLE-and not on Cpap. Reports that she never smoked. From chart review- apparently she was requiring oxygen on 05/14/23 and was sent to the facility with o2. With a clear chest xray and still symptoms of sob- will order D dimer. if d dimer elevated- will do chest angio to r/o PE. if d dimer is ok- will consider CT chest to r/o any ILD. (2) CHF exacerbation: Qualifiers: Heart failure type: combined systolic and diastolic Qualified Code(s): I50.43 - Acute on chronic combined systolic (congestive) and diastolic (congestive) heart failure Code(s): I50.9 - Heart failure, unspecified Status: Acute Assessment and Plan: - BNP 2220 - most recent echo (03/2023): Systolic function normal, grade 1 diastolic dysfunction, EF 65-70% - update echo-ordered prior - currently on: spironolactone and metolazone, hold. Continue as Lasix 40 mg IVP daily. - daily weights - monitor I&Os- not accurate i/o as there are two unmeasured voids - utilize external catheter to monitor urine output - trend renal function - will consult cardiology to help with management and recommendations and re establish f/u as she would need a close f/u (3) ANGELINA (acute kidney injury): Code(s): N17.9 - Acute kidney failure, unspecified Status: Acute Assessment and Plan: - creatinine 1.5 and GFR 33 upon admission- today cr 1 and gfr 53- improved - previously 0.9 and GFR 60 on 05/17/2023 - no prior documented history of CKD - add CK, urine sodium, protein/creatinine, urine protein, urine creatinine - monitor I&Os- not accurate I/O recorded- 1 unmeasured-but pt is clinically improving- breathing better and BLE edema improved - trend renal function - trend electrolytes, correct as needed - suspect injury due to volume overload, will trial diuresis - consider consultation to Nephrology if renal function worsens -stable-cr back to normal (4) Anemia: Code(s): D64.9 - Anemia, unspecified Status: Acute Assessment and Plan: - history of B12 deficiency-was rechecked -WNL - hg is 6.8 09/30- no obvious source of bleeding- transfuse 1 unit RPBC - received venofer 09/30 -- trend CBC- ordered daily checks -continue protonix - holding eliquis, naproxen, asa (5) Insulin dependent type 2 diabetes mellitus: Code(s): E11.9 - Type 2 diabetes mellitus without complications; Z79.4 - retirement (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 of insulin Status: Acute Assessment and Plan: - hypoglycemia protocol - POC blood glucose ACHS - home medication: Continue Lantus 8 units HS, hold U-100 insulin (NF). - correct regimen ordered - low dose TIDWM - A1C ordered - diabetic diet (6) Hypertension: Code(s): I10 - Essential (primary) hypertension Status: Chronic Assessment and Plan: - chronic - continue home medications: Hydralazine 25 mg t.i.d., metoprolol 125 mg b.i.d., lisinopril 20 mg b.i.d. - monitor Plan Patient self discontinued her diuretics. Now short of breath and has worsening lower extremity edema. Update echo. Lasix 40 mg IV daily. Monitor I&Os. Also has ANGELINA, suspect this is due to volume overload. Trend renal function. Anemia appears worse than baseline- venofer is ordered and 1 unit of PRBC. Card consulted- appreciate recommendations. Work with PT/OT. Diet: diabetic GI Prophylaxis: Not currently indicated DVT Prophylaxis: holding Eliquis for now- will continue with SCD Lines: Peripheral Code Status: Full code
[2023-10-03 08:00] VITALS: O2SAT 96
[2023-10-03 08:01] LABS: Glucose Point of Care 145 mg/dl (65-105)
[2023-10-03] MEDS: METOPROLOL TARTRATE 25 MG TABLET 125 MG PO (08:22)
[2023-10-03] MEDS: DOXAZOSIN MESYLATE 4 MG TABLET 8 MG PO (08:22)
[2023-10-03] MEDS: PANTOPRAZOLE 40 MG TABLET PO (08:22)
[2023-10-03] MEDS: FERROUS SULFATE DRIED 142 MG TABCR PO (08:22)
[2023-10-03] MEDS: FUROSEMIDE INJ 40 MG/4 ML VIAL IV PUSH (08:23)
[2023-10-03] MEDS: TOLNAFTATE 1% POWDER 45 GM BTL 1 APPLIC TOPICAL ×2 (08:23→21:24)
[2023-10-03] MEDS: lisinopriL 20 MG TABLET PO ×2 (08:28→21:23)
--- NOTE | 2023-10-03 10:35 | PM.PNCARD ---
Progress Note: A&P Assessment and Plan (1) Macrocytic anemia: Code(s): D53.9 - Nutritional anemia, unspecified Status: Acute Plan Elderly lady with paroxysmal atrial fibrillation. She is in sinus rhythm and I believe was symptomatic Surekha anemic on arrival to the hospital. Anticoagulation should not be resumed in this setting with risk being significantly higher than the benefit. Other than this her cardiovascular status is stable will continue follow her while she is in the hospital. Sandoval Higuera MD [facility] Subjective Date/time seen: : Date of service: 10/03/23 10:35 Interval history: Follow-up visit in this 82-year-old lady with history of paroxysmal atrial fibrillation, currently in sinus rhythm. Admitted to the hospital with shortness of breath and was found to be markedly anemic with hemoglobin of 6. Accordingly systemic anticoagulation has been stopped. She feels better this morning after receiving packed red cell transfusion. Exam Const: General: comfortable and no acute distress Other: Frail elderly lady appears to be comfortable HENMT: Mouth: Yes moist mucous membranes Eyes: Sclera: sclerae normal Neck: Neck: supple and no JVD Resp: Effort & Inspection: normal respiratory effort Cardio: Rate: regular rate Rhythm: regular rhythm GI: GI Palp: Yes Soft to palpation Auscultation: normal bowel sounds Skin: General skin exam: normal color Neuro: Other: Alert responsive and oriented Objective Data Vital Signs Vital Signs: Vital Signs - 24 hr 10/02/23 14:00 10/02/23 14:47 10/02/23 15:35 Temperature 36.6 C Pulse Rate 63 Respiratory Rate 22 H Blood Pressure 133/53 L Pulse Oximetry 98 97 Oxygen Delivery Nasal Cannula Nasal Cannula Oxygen Flow Rate 2 2 10/02/23 18:07 10/02/23 15:00 10/02/23 20:00 Temperature Pulse Rate 63 Respiratory Rate 16 Blood Pressure 104/72 Pulse Oximetry 94 95 97 Oxygen Delivery Nasal Cannula Nasal Cannula Oxygen Flow Rate 2 2 10/02/23 20:57 10/03/23 06:00 Temperature 36.4 C L 36.8 C Pulse Rate 66 63 Respiratory Rate 20 20 Blood Pressure 150/60 H 145/50 H Pulse Oximetry 97 96 Oxygen Delivery Oxygen Flow Rate Intake/Output Intake/Output: Intake & Output 09/30/23 10/01/23 10/02/23 10/03/23 23:59 23:59 23:59 23:59 Intake Total 120 1226 950 120 Output Total 850 450 600 Balance 120 812 500 -480 Meds/Results Medications: Active Medications Generic Name Dose Route Start Last Admin Trade Name Sindy PRN Reason Stop Dose Admin Albuterol 2 puff 10/01/23 00:38 10/02/23 09:05 Albuterol Sulfate (*Sp) Inhaler INHALATION 2 puff Q2HRT PRN Administration Shortness Of Breath Or Wheezing Dextrose 12.5 gm 10/01/23 01:53 Dextrose 50% 25 Gm/50 Ml Syringe IV PUSH PRN PRN Hypoglycemia Protocol Doxazosin Mesylate 8 mg 10/01/23 09:00 10/03/23 08:22 Doxazosin Mesylate 4 Mg Tablet PO 8 mg DAILY ROSEMARIE Administration Ferrous Sulfate 142 mg 10/02/23 08:00 10/03/23 08:22 Ferrous Sulfate Dried 142 Mg Tabcr PO 142 mg DAILY@0800 ROSEMARIE Administration Furosemide 40 mg 10/01/23 09:00 10/03/23 08:23 Furosemide Inj 40 Mg/4 Ml Vial IV PUSH 40 mg DAILY ROSEMARIE Administration Glucagon 1 mg 10/01/23 01:53 Glucagon For Inj 1 Mg Vial IM PRN PRN Hypoglycemia Protocol Glucose 15 gm 10/01/23 01:53 Glucose Oral Gel 15 Gm Of Glucse In 37.5 Gm Tube PO PRN PRN Hypoglycemia Protocol Hydralazine HCl 25 mg 10/01/23 09:00 10/03/23 08:33 Hydralazine Hcl 25 Mg Tablet PO Not Given TID ROSEMARIE Dextrose 1,000 mls @ 100 mls/hr 10/01/23 01:53 Dextrose 5% 1,000 Ml IVPB PRN PRN Hypoglycemia Protocol Insulin Aspart 2 - 5 units 10/01/23 08:00 10/03/23 08:25 Insulin Aspart (*Bkc) 100 Units/Ml SUB-Q Not Given TIDWM [facility] Protocol Insulin Glargine 8 units 10/01/23 21:00 10/02/23 20:55
[2023-10-03] MEDS: INSULIN ASPART (*BKC) 100 UNITS/ML SUB-Q (11:44)
[2023-10-03 11:50] LABS: Glucose Point of Care 225 mg/dl (65-105)
[2023-10-03 14:00] VITALS: BP 140/50; PULSE 64; RESP 18; TEMP 36.8; O2SAT 96
[2023-10-03] MEDS: hydrALAZINE HCL 25 MG TABLET PO ×2 (14:00→19:00)
[2023-10-03 17:06] LABS: Glucose Point of Care 182 mg/dl (65-105)
[2023-10-03 19:48] VITALS: PULSE 64; RESP 18; O2SAT 96
[2023-10-03 20:43] VITALS: BP 135/50; PULSE 65; RESP 18; TEMP 36.4; O2SAT 98
[2023-10-03 20:44] LABS: Glucose Point of Care 145 mg/dl (65-105)
[2023-10-03] MEDS: INSULIN GLARGINE (*BKC) 100 UNITS/ML 8 UNITS SUB-Q (21:21)
[2023-10-03 21:24] VITALS: PULSE 65
[2023-10-04] VITALS (12 sets, daily range): BP systolic 116–138; BP diastolic 44–60; PULSE 61–70; RESP 18–20; TEMP 36.2–36.8; O2SAT 75–98
[2023-10-04 06:52] LABS: Hematocrit 30.6 % (37.0-47.0); Hemoglobin 8.7 g/dL (12.0-15.0); Mean Corpuscular HGB Conc 28.4 g/dl (32-36); Mean Corpuscular Hemoglobin 28.2 pg (26-34); Mean Corpuscular Volume 99.4 fl (80-100); Platelet Count Result 203 k/mm3 (150-375); Red Blood Count 3.08 M/mm3 (4.2-5.4); White Blood Count 5.5 K/mm3 (4.5-10.0)
[2023-10-04 07:10] LABS: Blood Urea Nitrogen 18 mg/dL (7-17); Calcium 8.6 mg/dL (8.4-10.2); Carbon Dioxide > 40 mmol/L (22-30); Chloride 97 mmol/L (98-107); Estimated CRCL calculation 40 ml/min; Estimated Glomerular Filt Rate 60; Glucose 101 mg/dL (65-110); Potassium 3.6 mmol/L (3.4-5.0); Sodium 141 mmol/L (137-145)
[2023-10-04 07:51] LABS: Glucose Point of Care 103 mg/dl (65-105)
--- NOTE | 2023-10-04 08:12 | PM.IMPN ---
Progress Note: A&P Assessment and Plan (1) Respiratory failure: Code(s): J96.90 - Respiratory failure, unspecified, unspecified whether with hypoxia or hypercapnia Status: Acute Assessment and Plan: - CXR: clear lungs - EKG, initial: Sinus bradycardia - Hgb stable- no s/s of bleeding - suspect hypoxia secondary to anemia - Tried to wean her off o2 yesterday-did ok for a while-then sats dropped to 88's. Per her report she normally doensot wear oxygen at home and reports no NEVILLE-and not on Cpap. Reports that she never smoked. From chart review- apparently she was requiring oxygen on 05/14/23 and was sent to the facility with o2. With a clear chest xray and still symptoms of sob- will order D dimer. if d dimer elevated- will do chest angio to r/o PE. if d dimer is ok- will consider CT chest to r/o any ILD. 10/03- D dimer was elevated. CT angio-no PE, mild congestion. will continue lasix and home with oral dose Will do home o2 eval and f/u with pulm clinic for further work up- could need sleep study. (2) CHF exacerbation: Qualifiers: Heart failure type: combined systolic and diastolic Qualified Code(s): I50.43 - Acute on chronic combined systolic (congestive) and diastolic (congestive) heart failure Code(s): I50.9 - Heart failure, unspecified Status: Acute Assessment and Plan: - BNP 2220 - most recent echo (03/2023): Systolic function normal, grade 1 diastolic dysfunction, EF 65-70% - update echo-ordered prior - currently on: spironolactone and metolazone, hold. Continue as Lasix 40 mg IVP daily. - daily weights - monitor I&Os - utilize external catheter to monitor urine output - trend renal function - cardiology following (3) ANGELINA (acute kidney injury): Code(s): N17.9 - Acute kidney failure, unspecified Status: Acute Assessment and Plan: - trend renal function - trend electrolytes, correct as needed - suspect injury due to volume overload, will trial diuresis - consider consultation to Nephrology if renal function worsens -stable-cr back to normal (4) Anemia: Code(s): D64.9 - Anemia, unspecified Status: Acute Assessment and Plan: - history of B12 deficiency-was rechecked -WNL - hg is 6.8 09/30- no obvious source of bleeding- transfuse 1 unit RPBC - received venofer 09/30- on iron supplement now -h/o B12 deficiency- checked- WNL -- trend CBC- ordered daily checks- steady so far -continue protonix - holding eliquis, naproxen, asa (5) Insulin dependent type 2 diabetes mellitus: Code(s): E11.9 - Type 2 diabetes mellitus without complications; Z79.4 - USP (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 of insulin Status: Acute Assessment and Plan: - hypoglycemia protocol - POC blood glucose ACHS - home medication: Continue Lantus 8 units HS, hold U-100 insulin (NF). - correct regimen ordered - low dose TIDWM - A1C ordered - diabetic diet (6) Hypertension: Code(s): I10 - Essential (primary) hypertension Status: Chronic Assessment and Plan: - chronic - continue home medications: Hydralazine 25 mg t.i.d., metoprolol 125 mg b.i.d., lisinopril 20 mg b.i.d. - monitor Plan Patient self discontinued her diuretics. Now short of breath and has worsening lower extremity edema. Update echo. Lasix 40 mg IV daily. Monitor I&Os. Also has ANGELINA, suspect this is due to volume overload. Trend renal function. Anemia appears worse than baseline- venofer is ordered and 1 unit of PRBC. Card consulted- appreciate recommendations. Work with PT/OT. Dispo- rehab/SNF pending son approval Diet: diabetic GI Prophylaxis: Not currently indicated DVT Prophylaxis: holding Eliquis for now- will continue with SCD Lines: Peripheral Code Status: Full code Time Spent With Patient Time with patient: 25 - 35 minutes Subjective Date/time seen: 10/04/23 08:12 Interval history: 82 y.o female with PMH of Afib-chronich eliquis, GERD,Left ventr
[2023-10-04] MEDS: FUROSEMIDE INJ 40 MG/4 ML VIAL IV PUSH (08:50)
[2023-10-04] MEDS: lisinopriL 20 MG TABLET PO ×2 (08:50→20:57)
[2023-10-04] MEDS: FERROUS SULFATE DRIED 142 MG TABCR PO (08:50)
[2023-10-04] MEDS: PANTOPRAZOLE 40 MG TABLET PO (08:50)
[2023-10-04] MEDS: METOPROLOL TARTRATE 25 MG TABLET 125 MG PO ×2 (08:50→20:57)
[2023-10-04] MEDS: hydrALAZINE HCL 25 MG TABLET PO ×3 (08:50→17:40)
[2023-10-04] MEDS: TOLNAFTATE 1% POWDER 45 GM BTL 1 APPLIC TOPICAL ×2 (08:51→20:57)
[2023-10-04] MEDS: DOXAZOSIN MESYLATE 4 MG TABLET 8 MG PO (08:52)
[2023-10-04 11:41] LABS: Glucose Point of Care 157 mg/dl (65-105)
[2023-10-04 16:41] LABS: Glucose Point of Care 294 mg/dl (65-105)
[2023-10-04] MEDS: INSULIN ASPART (*BKC) 100 UNITS/ML SUB-Q (17:19)
[2023-10-04] MEDS: INSULIN GLARGINE (*BKC) 100 UNITS/ML 8 UNITS SUB-Q (20:56)
[2023-10-04 21:06] LABS: Glucose Point of Care 223 mg/dl (65-105)
[2023-10-05] VITALS (10 sets, daily range): BP systolic 107–148; BP diastolic 40–56; PULSE 60–68; RESP 16–20; TEMP 36.6–37; O2SAT 89–99
[2023-10-05 05:53] LABS: Hematocrit 28.9 % (37.0-47.0); Hemoglobin 8.2 g/dL (12.0-15.0); Mean Corpuscular HGB Conc 28.4 g/dl (32-36); Mean Corpuscular Hemoglobin 28.1 pg (26-34); Mean Platelet Volume 9.8 fl (7.4-10.4); Platelet Count Result 184 k/mm3 (150-375); Red Blood Count 2.92 M/mm3 (4.2-5.4); Red Cell Distribution Width 15.3 % (11.5-14.5); White Blood Count 4.4 K/mm3 (4.5-10.0)
[2023-10-05 06:02] LABS: Blood Urea Nitrogen 21 mg/dL (7-17); Calcium 8.4 mg/dL (8.4-10.2); Carbon Dioxide > 40 mmol/L (22-30); Chloride 97 mmol/L (98-107); Estimated CRCL calculation 40 ml/min; Estimated Glomerular Filt Rate 60; Glucose 137 mg/dL (65-110); Sodium 141 mmol/L (137-145)
[2023-10-05 07:56] LABS: Glucose Point of Care 135 mg/dl (65-105)
[2023-10-05] MEDS: lisinopriL 20 MG TABLET PO ×2 (09:02→20:32)
[2023-10-05] MEDS: FERROUS SULFATE DRIED 142 MG TABCR PO (09:02)
[2023-10-05] MEDS: hydrALAZINE HCL 25 MG TABLET PO ×3 (09:02→17:35)
[2023-10-05] MEDS: DOXAZOSIN MESYLATE 4 MG TABLET 8 MG PO (09:02)
[2023-10-05] MEDS: TOLNAFTATE 1% POWDER 45 GM BTL 1 APPLIC TOPICAL ×2 (09:03→20:38)
[2023-10-05] MEDS: METOPROLOL TARTRATE 25 MG TABLET 125 MG PO ×2 (09:03→20:32)
[2023-10-05] MEDS: FUROSEMIDE INJ 40 MG/4 ML VIAL IV PUSH (09:03)
[2023-10-05] MEDS: PANTOPRAZOLE 40 MG TABLET PO (09:03)
--- NOTE | 2023-10-05 09:35 | PM.IMPN ---
Progress Note: A&P Assessment and Plan (1) Respiratory failure: Code(s): J96.90 - Respiratory failure, unspecified, unspecified whether with hypoxia or hypercapnia Status: Acute Assessment and Plan: - CXR: clear lungs - EKG, initial: Sinus bradycardia - Hgb stable- no s/s of bleeding - suspect hypoxia secondary to anemia - Tried to wean her off o2 two days ago-did ok for a while-then sats dropped to 88's. Per her report she normally does not wear oxygen at home and reports no NEVILLE-and not on Cpap. Reports that she never smoked. From chart review- apparently she was requiring oxygen on 05/14/23 and was sent to the facility with o2. With a clear chest xray and still symptoms of sob- will order D dimer. - D dimer was elevated. CT angio-no PE, mild congestion. will continue lasix and home with oral dose - Will do home o2 eval and f/u with pulm clinic for further work up- could need sleep study. (2) CHF exacerbation: Qualifiers: Heart failure type: combined systolic and diastolic Qualified Code(s): I50.43 - Acute on chronic combined systolic (congestive) and diastolic (congestive) heart failure Code(s): I50.9 - Heart failure, unspecified Status: Acute Assessment and Plan: - Current medications: self dc diuretics - Supportive treatment Tyl and ibu prn Nebs prn - BNP: 2220 - EKG: sinus bradycardia - Chest XR: clear lungs - Echo 03/2023: Systolic function normal, grade 1 diastolic dysfunction, EF 65-70% - Echo 10/01/2023: LVEF > 70% with grade I diastolic dysfunction - Medications: spironolactone and metolazone, hold. Continue as Lasix 40 mg IVP daily. - Monitor vital signs, I&Os, BUN/creatinine, daily weights, neuro status and patient is a fall risk - Monitor serum electrolytes, Keep serum Potassium>4 and serum Magnesium>2 and CBC (3) ANGELINA (acute kidney injury): Code(s): N17.9 - Acute kidney failure, unspecified Status: Acute Assessment and Plan: - trend renal function - trend electrolytes, correct as needed - suspect injury due to volume overload, will trial diuresis - consider consultation to Nephrology if renal function worsens - Resolved. Stable, creatinine back to normal. 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 - correct regimen ordered - low dose TIDWM - A1C 09/30: 6.3 - diabetic diet (6) Hypertension: Code(s): I10 - Essential (primary) hypertension Status: Chronic Assessment and Plan: - chronic - continue home medications: Hydralazine 25 mg t.i.d., metoprolol 125 mg b.i.d., lisinopril 20 mg b.i.d. - monitor Time Spent With Patient Time with patient: 25 - 35 minutes Subjective Date/time seen: 10/05/23 09:35 Interval history: 82 y/o F presents here with bilateral foot pain, SOB, hypoxia, and intermittent chest pain with PMH of Afib, GERD, gout, HTN, DM2, and OAB. Patient is pleasant lying comfortably in bed. She denies shortness of breath at this time and notes that she was able to lay flat without becoming short of breath as well. Her lungs are clear to auscultation but diminished with trivial edema to the lower extremities. She remains on lasix at this time and will be discharged on PO medications. She denies chest pain, palpitations, nausea/vomiting and changes in bowel/bladder. S
[2023-10-05 11:27] LABS: Glucose Point of Care 235 mg/dl (65-105)
[2023-10-05] MEDS: INSULIN ASPART (*BKC) 100 UNITS/ML SUB-Q (12:41)
[2023-10-05 15:33] LABS: SARS-CoV-2 RNA PCR Negative (Negative)
[2023-10-05 16:15] LABS: Glucose Point of Care 186 mg/dl (65-105)
[2023-10-05] MEDS: INSULIN GLARGINE (*BKC) 100 UNITS/ML 8 UNITS SUB-Q (20:39)
[2023-10-05 21:25] LABS: Glucose Point of Care 186 mg/dl (65-105)
[2023-10-05] MEDS: OXYMETAZOLINE HCL 0.05% NAS 15 ML BTL (*BKC) 1 SPRAY NASAL (21:40)
[2023-10-06 06:00] VITALS: BP 122/49; PULSE 65; RESP 20; TEMP 36.9; O2SAT 97
[2023-10-06 06:39] LABS: Hematocrit 31.4 % (37.0-47.0); Mean Corpuscular HGB Conc 28.7 g/dl (32-36); Mean Corpuscular Hemoglobin 28.2 pg (26-34); Mean Corpuscular Volume 98.4 fl (80-100); Mean Platelet Volume 10.1 fl (7.4-10.4); Platelet Count Result 195 k/mm3 (150-375); Red Blood Count 3.19 M/mm3 (4.2-5.4); Red Cell Distribution Width 15.4 % (11.5-14.5); White Blood Count 4.2 K/mm3 (4.5-10.0)
[2023-10-06 07:06] LABS: Blood Urea Nitrogen 20 mg/dL (7-17); Calcium 8.6 mg/dL (8.4-10.2); Carbon Dioxide > 40 mmol/L (22-30); Chloride 95 mmol/L (98-107); Estimated CRCL calculation 38 ml/min; Estimated Glomerular Filt Rate 60; Glucose 144 mg/dL (65-110); Potassium 3.6 mmol/L (3.4-5.0); Sodium 140 mmol/L (137-145)
[2023-10-06 07:24] LABS: Glucose Point of Care 134 mg/dl (65-105)
[2023-10-06 08:30] VITALS: PULSE 68; RESP 20; O2SAT 92
--- NOTE | 2023-10-06 09:13 | PM.DS ---
DS: Admitting Diagnosis Discharge Date 10/06/2023 Admitting Diagnosis Respiratory failure CHF exacerbation ANGELINA Anemia Insulin dependent diabetes Hypertension DS: Discharge Diagnosis Discharge Diagnosis (1) Respiratory failure: Code(s): J96.90 - Respiratory failure, unspecified, unspecified whether with hypoxia or hypercapnia Status: Acute (2) CHF exacerbation: Qualifiers: Heart failure type: combined systolic and diastolic Qualified Code(s): I50.43 - Acute on chronic combined systolic (congestive) and diastolic (congestive) heart failure Code(s): I50.9 - Heart failure, unspecified Status: Acute (3) ANGELINA (acute kidney injury): Code(s): N17.9 - Acute kidney failure, unspecified Status: Acute (4) Anemia: Code(s): D64.9 - Anemia, unspecified Status: Acute (5) Insulin dependent type 2 diabetes mellitus: Code(s): E11.9 - Type 2 diabetes mellitus without complications; 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 On admission patient requiring supplemental O2. Patient denies prior O2 requirement, however on chart review it appears she was discharged on O2 to the facility. Labs revealed anemia requiring a blood transfusion, which is possible cause of patients hypoxia. She received venofer and started on iron supplementation. Patient also noted to have pitting edema of the lower extremities. BNP elevated. D dimer elevated. Chest XR revealed clear lungs. CTA without PE and showed mild congestions. Patient started on IV lasix. Echo showed LVEF > 70% and grade I diastolic dysfunction. Cardiology consulted and patient to stay on PO lasix at discharge. Anticoagulation discontinued due to risks outweighing the benefits with patients anemia. Patient remains on O2 supplementation at discharge. SNF will continue to wean as tolerated. At time of discharge patient denies shortness of breath, foot pain and vitals remain stable. Patient discharged in stable condition to SNF. She is to follow up with her PCP and cardiology as scheduled. She is to take the PO lasix as prescribed. Status at Discharge Functional status at discharge: wheelchair bound Time Spent with Patient Time attestation: Total time spent providing and/or coordinating discharge services: Time spent: Greater than 30 minutes Exam Narrative: AF HR 65 RR 20 SpO2 96 2LNC BP 120/45 General: female in no acute respiratory distress who is nontoxic appearing, lying semi recumbent in bed. HEENT: Normocephalic. Atraumatic. Pupils equal round reactive to light. Extraocular movement intact. Sclera clear and anicteric. No facial asymmetry. Chest: Lungs are clear but diminished to auscultation bilaterally. No wheezes or crackles. CV: Heart was regular rate and rhythm. S1-S2. No murmurs, gallops, or rubs. Abd: Abdomen was soft. Nontender. Nondistended. Positive bowel sounds. No organomegaly or masses. Ext: No clubbing, cyanosis, or edema. 2+ DP pulses bilaterally. Neuro: Patient is alert and oriented x4. Cranial nerves 2-12 are intact. Speech is clear. Psych: Normal mood and affect. Patient is pleasant and cooperative. Skin: Warm and dry. No rashes noted. DS: Data Data Completed and Pending Completed studies during hospitalization: Chest CTA Chest XR Labs on day of discharge: Labs from last 24 hours 10/06/23 10/06/23 10/05/23 07:17 05:25 20:40 WBC 4.2 L RBC 3.19 L Hgb 9.0 L Hct 31.4 L MCV 98.4 MCH 28.2 MCHC 28.7 L RDW 15.4 H Plt Count 195 MPV 10.1
[2023-10-06 09:30] VITALS: PULSE 68
[2023-10-06] MEDS: FERROUS SULFATE DRIED 142 MG TABCR PO (09:30)
[2023-10-06] MEDS: METOPROLOL TARTRATE 25 MG TABLET 125 MG PO (09:30)
[2023-10-06] MEDS: FUROSEMIDE 40 MG TABLET PO (09:30)
[2023-10-06] MEDS: hydrALAZINE HCL 25 MG TABLET PO ×2 (09:31→13:14)
[2023-10-06] MEDS: DOXAZOSIN MESYLATE 4 MG TABLET 8 MG PO (09:31)
[2023-10-06] MEDS: PANTOPRAZOLE 40 MG TABLET PO (09:31)
[2023-10-06] MEDS: lisinopriL 20 MG TABLET PO (09:31)
[2023-10-06] MEDS: TOLNAFTATE 1% POWDER 45 GM BTL 1 APPLIC TOPICAL (09:32)
[2023-10-06 10:26] VITALS: O2SAT 92
[2023-10-06 11:41] LABS: Glucose Point of Care 162 mg/dl (65-105)
--- NOTE | 2023-10-06 13:36 | PC.NURSE ---
report called to Destinee at [facility], reviewed plan of care
[2023-10-06 14:00] VITALS: BP 120/45; PULSE 65; RESP 20; TEMP 36.2; O2SAT 96
== END 2023-10-06 16:22 | DRG 811 ==
LOC: ANHED 13:30 → ANH3MEDSUR 15:02
PROVIDERS: Nurse Practitioner; Student in an Organized Health Care Education/Training Program; Admitting Provider Hospitalist; Emergency Provider Emergency Medicine; PCP Family Medicine Adolescent Medicine; Visit Provider Internal Medicine
DX: D50.9 Iron deficiency anemia, unspecified (principal); I50.33 Acute on chronic diastolic (congestive) heart failure; J96.01 Acute respiratory failure with hypoxia; N17.9 Acute kidney failure, unspecified; I11.0 Hypertensive heart disease with heart failure; E11.9 Type 2 diabetes mellitus without complications; K21.9 Gastro-esophageal reflux disease without esophagitis; I48.0 Paroxysmal atrial fibrillation; N32.81 Overactive bladder; M81.0 Age-related osteoporosis without current pathological fracture; H35.30 Unspecified macular degeneration; I70.90 Unspecified atherosclerosis; K76.0 Fatty (change of) liver, not elsewhere classified; H35.3112 Nonexudative age-related macular degeneration, right eye, intermediate dry stage; Z79.4 Long term (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 of insulin; Z79.01 Long term (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 of anticoagulants; Z90.49 Acquired absence of other specified parts of digestive tract
CPT/HCPCS: 36415; 36430; 71046; 71275; 80048; 80053; 81050; 82550; 82570; 82607; 82728; 82746; 82948; 83036; 83540; 83550; 83880; 84156; 84300; 84443; 84484; 85014; 85018; 85025; 85027; 85380; 85610; 85730; 86850; 86900; 86901; 86923; 87635; 93005; 93306; 94640; 97110; 97116; 97161; 97165; 97530; 97535; 99285; A9270; J1756; J1815; J1940; P9016; Q9967

== ENCOUNTER 2023-12-19 10:29 | Inpatient (IN) | payer MEDICARE, SELFPAY ==
[2023-12-19] VITALS (7 sets, daily range): BP systolic 148–169; BP diastolic 58–96; PULSE 60–66; RESP 15–18; TEMP 36.6–36.9; O2SAT 94–100; BMI 26.6
--- NOTE | ~2023-12-19 | XR_ITS ---
EXAMINATION: XR chest 2V DATE: 12/19/2023 15:16 INDICATION: Weakness TECHNIQUE: frontal and lateral views of the chest were obtained. COMPARISON: Chest radiograph dated 09/30/[address] dated 10/03/2023 FINDINGS: Mild bibasilar opacities favor atelectasis over pneumonia. No pleural effusion or pneumothorax. Colon ic interposition below the anterior right hemidiaphragm. Mild cardiomegaly. Moderate thoracic spondyl osis with chronic mild anterior wedging of a few mid thoracic vertebral bodies. IMPRESSION: 1. Mild streaky bibasilar opacities and favor atelectasis over pneumonia. 2. Mild cardiomegaly. Reviewed, dictated and finalized at location A.
--- NOTE | ~2023-12-19 | CT_ITS ---
EXAMINATION: CT abdomen pelvis w con DATE: 12/19/2023 16:22 INDICATION: Abdominal pain TECHNIQUE: Computed tomography (CT) of the abdomen and pelvis was performed with 100 mL Omnipaque-350 intravenous contrast. Automated exposure control and iterative reconstruction technique were employe d. The dose-length product was 495.63 mGy-cm. COMPARISON: CT dated 10/03/2023, 04/13/2023 and 04/12/2023 FINDINGS: Mild atelectasis/scarring at the anterobasilar left lower lobe. The medial right middle lobe. Heart s ize is normal. Atherosclerotic coronary artery calcification. Aortic valve and mitral annular calcifi cation. No pericardial or pleural effusion. Unchanged small fat-containing bilateral diaphragmatic he rnias. Cholecystectomy clips gallbladder fossa. There are a few scattered hepatic calcified lesions c onsistent with old granulomatous disease. Spleen, pancreas and bilateral adrenal glands are normal. 1 .5 cm right renal cyst. Exophytic 14.0 x 8.0 x 10.8 cm multiloculated cystic mass arising from the an terior interpolar region of the left kidney. The mass demonstrates multiple internal septations, a fe w thin, <1 mm and a few which appear focally thickened measuring at least 2-3 mm in thickness and wit h clearly discernible enhancement. There is thickened enhancing soft tissue centrally within the lesi on at the confluence of a few septations. This enhancing region measures approximately 10 x 7 x 6 mm. This nodular focus of enhancement which is not evident on the prior imaging would increased vascular classification to a Bosniak 4 lesion. Bladder is normal. Atrophic uterus and bilateral adnexa are un remarkable. There is moderate colonic diverticulosis with a sigmoid predominance. There is no adjace nt inflammatory change to suggest diverticulitis. There is a region of increased density in the laya cral fat between the coccyx and the posterior wall of the rectum with less stranding in the fat thick ening more anteriorly around the periphery of the rectum. Small bowel and appendix are normal. No chad e intraperitoneal gas or fluid. No pathologically enlarged abdominal or pelvic lymphadenopathy. Scatt ered degenerative skeletal changes most notable for severe bilateral facet osteoarthritis at L5 and a transitional partially lumbarized S1 segment. There are few scattered small bone islands in the prox imal femurs and pelvis. IMPRESSION: 1. Stranding surrounding the rectum with increased density in the presacral space suspicious for a pr octocolitis which could be infectious, inflammatory or ischemic etiology. 2. Diverticulosis. 3. Interval increase in size of a now 14.0 x 8.0 x 10.8 cm exophytic complex multiloculated cystic ma ss arising from the left kidney. The internal septations. It have thickened with associated enhanceme nt and involvement of a more focal small region of increased density concerning for enhancing soft ti ssue component at the confluence of the internal septations. This would be consistent with a Bosniak 4 lesion which has a high likelihood for renal cell carcinoma and would recommend urologic consultati on. Of note there is no noncontrast evaluation and the presumed enhancing nodule could represent hemo rrhage within a small cystic component which would decrease the classification to Bosniak 2F. Would r ecommend urologic consultation and if patient would be suitable candidate consider further evaluation with pre and postcontrast CT or MRI to confirm the presence of a suspected enhancing nodular soft ti ssue component. Reviewed, dictated and finalized at location A. IMPRESSION: 1. Stranding surrounding the rectum with increased density in the presacral spa ce suspicious for a proctocolitis which could be infectious, inflammatory or is chemic etiology. 2. Diverticulosis. 3. Interval increase
--- NOTE | ~2023-12-19 | XR_ITS ---
EXAMINATION: XR hip RT min 2V DATE: 12/19/2023 15:16 INDICATION: Right hip pain. TECHNIQUE: 2 views of right hip were obtained. COMPARISON: Right hip radiographs 03/24/2022 FINDINGS: Bone alignment is normal. No fracture. There is mild right hip osteoarthritis. IMPRESSION: 1. Mild right hip osteoarthritis. Reviewed, dictated and finalized at location A.
--- NOTE | ~2023-12-19 | MR_ITS ---
EXAMINATION: MR abdomen wo/w con DATE: 12/23/2023 12:18 INDICATION: Left renal mass TECHNIQUE: Magnetic resonance imaging (MRI) of the abdomen was performed without and with 14 mL Multi juventino intravenous contrast. Sequences included coronal T2-weighted SS-FSE, coronal and axial FS 2D-F IESTA, axial STIR FSE, axial T2-weighted SS-FSE, axial T2-weighted FS SS-FSE, axial diffusion-weighte d SE, axial dual-echo T1-weighted FSPGR, and axial and coronal T1-weighted LAVA. Postcontrast axial T 1-weighted LAVA images were obtained in a time course. Postcontrast coronal T1-weighted LAVA images w ere obtained. COMPARISON: CT dated 12/19/2023 FINDINGS: Heart size is normal. No pericardial or pleural effusion. Liver, spleen and bilateral adrenal glands are normal. 12 x 7 mm T2 hyperintense nonenhancing cystic lesion at the body of the pancreas which ap pears unchanged tiny for differences in technique when compared with CT dated. Again seen is a complex multiloculated cystic lesion arising from the anterior left kidney which measures 13.9 x 7.3 x 11.9 cm. If you've the loculations demonstrate a complex proteinaceous/hemorrhagic fluid with mildl y increased T1 signal and T2 hyperintensity of less than simple fluid. The postcontrast imaging is li mited by motion artifact. There is however discernible enhancement along a few of the thickened inter nal septations. The internal septations previously measured no greater than 1 mm in thickness whereas in the current study a few of the septations are thicker measuring up to 4-8 mm in thickness. The ce ntral enhancing lesion identified on prior CT which is concerning for a region of more nodular soft t issue appears to represent the thickened confluence of multiple septations with smooth peripheral mar gins which do not extend beyond the contours of the septations. Given the better resolution of the en hancing septations with reassess the lesion is a Bosniak 3 lesion. There are couple additional simple appearing T2 hyperintense nonenhancing cysts in the right kidney the larger measuring 1.6 cm. Visual ized portions of bowels are unremarkable. No pathologically enlarged abdominal lymphadenopathy. T1 hy perintense fat saturating hemangioma at the right side of the L4 vertebral body. IMPRESSION: 1. 13.9 x 7.3 x 11.9 cm complex cystic left renal lesion with thickened but relatively smooth enhanci ng internal septations measuring up to 4 mm in thickness but without discrete enhancing nodules consi stent with a Bosniak 3 lesion which is indeterminate with expected malignant percentage of 55-70%. Reviewed, dictated and finalized at location A. IMPRESSION: 1. 13.9 x 7.3 x 11.9 cm complex cystic left renal lesion with thickened but rel atively smooth enhancing internal septations measuring up to 4 mm in thickness but without discrete enhancing nodules consistent with a Bosniak 3 lesion which is indeterminate with expected malignant percentage of 55-70%.
--- NOTE | ~2023-12-19 | XR_ITS ---
Clinical Indication: Shortness of breath PA and lateral views of the chest: Comparison: 12/19/2023 Findings: Probable mild bibasilar interstitial disease versus COPD. No acute consolidation or pleural effusion.. Cardiomediastinal silhouette is stable. Bones and soft tissues are unremarkable. Impression: COPD and/or bibasilar chronic interstitial disease. Reviewed, dictated and finalized at location . Impression: COPD and/or bibasilar chronic interstitial disease.
--- NOTE | 2023-12-19 13:24 | ED.GENADULT ---
HPI - General Adult General Chief complaint: Unspecified <India Mar PA-C - Last Filed: 12/20/23 11:11> Stated complaint: constipation <India Mar PA-C - Last Filed: 12/20/23 11:11> Time Seen by Provider: 12/19/23 13:24 <India Mar PA-C - Last Filed: 12/20/23 11:11> Focused HPI: This is a 83 year old female that presents to the ER for abdominal pain. Ongoing over the last couple of weeks. Reports constipation. Reports she has not been able to eat much. Reports generalized weakness causing difficulty to walk. Reports some vomiting and dysuria. Reports she has also had right hip pain radiating into the leg. No recent injuries. Denies fevers. GENERAL: Elderly, well-nourished, and in no acute distress. HEAD: Normocephalic, atraumatic. CHEST: Clear to auscultation. ?No respiratory distress. HEART: Regular rate and rhythm.? NEURO: ?Alert and oriented x3. Patient screened in triage and initial orders placed.? ?Additional care and disposition to be based upon?diagnostic testing and treatment. <India Mar PA-C - Last Filed: 12/20/23 11:11> History of Present Illness HPI narrative: This is an 83-year-old female with a past medical history significant for atrial fibrillation, congestive heart failure, insulin-dependent diabetes and hypertension. Today she presents the emergency department with a chief complaint of constipation and some right hip pain. Patient is accompanied by her son who is the primary historian. Son pulled me aside in private and states that his mother has a history of likely underlying dementia as not a reliable historian and does not frequently tell the actual events was going on today. When I evaluated the patient independently she is awake alert and oriented x3 answers all my questions appropriately. She explains that she is having some abdominal discomfort as well as decreased p.o. intake and nauseousness. Son states this is true and has been going on for last several days to weeks. She has been in and out of several hospitals systems according to the son. There appears to been recent viral illness with cough, congestion over last weekend which has slowly resolved. Patient herself states that she is not having any chest pain, difficulty in breathing, back pain, diarrhea, dysuria or trouble going to the bathroom. Patient does state that she feels so profoundly weak that she cannot sometimes get up and go to the bathroom by herself. Patient was recently started on a derivative of an ibuprofen for hip pain and arthritis. Patient's son states that she has been taking Tylenol and NSAIDs for her abdominal and hip pain. <Nitesh Werner MD - Last Filed: 12/19/23 19:34> Related Data Home medications: Home Medications Medication Instructions Recorded Confirmed acetaminophen 500 mg tablet 1,000 mg PO Q6H PRN pain 1-3 04/02/23 12/19/23 (Tylenol Extra Strength) insulin aspart (niacinamide) 2 - 4 unit subcut WMHS 09/30/23 12/19/23 (U-100) 100 unit/mL subcutaneous solution (Fiasp U-100 Insulin) insulin glargine 100 unit/mL (3 8 unit subcut HS 09/30/23 12/19/23 mL) subcutaneous pen (Basaglar KwikPen U-100 Insulin) metoprolol tartrate 50 mg tablet 125 mg PO Q12HR 09/30/23 12/19/23 albuterol sulfate 90 mcg/actuation 2 puff inhalation Q2H PRN sob, 10/01/23 12/19/23 aerosol inhaler (Ventolin HFA) wheezing ondansetron 8 mg disintegrating 8 mg PO Q6H PRN Abdominal 12/19/23 12/19/23 tablet Discomfort <India Mar PA-C - Last Filed: 12/20/23 11:11> Allergies/adverse reactions: Allergies Allergy/AdvReac Type Severity Reaction Status Date / Time Penicillins Allergy Severe HIVES Verified 05/06/23 12:46 hydrocodone AdvReac Severe SEVERE GI Verified 05/06/23 12:46 UPSET, N/V nitrofurantoin AdvReac Severe Swelling Verified 05/06/23 12:46 propoxyphene AdvReac Severe GI UPSET Verified 05/06/23 12:46 acetaminophen AdvReac Unknown Unknown Verified
--- NOTE | 2023-12-19 13:29 | ECG_ITS ---
Test Date: 2023-12-19 13:34:41 Measurements Intervals [place] Rate: 57 P: 8 MS: 113 QRS: -20 QRSD: 78 T: 33 QT: 390 QTc: 380 Interpretive Statements SINUS BRADYCARDIA WITH SHORT MS INTERVAL POOR R WAVE PROGRESSION Compared to ECG 09/30/2023 10:45:17 NO SIGNIFICANT CHANGES Electronically Signed On 12-20-2023 15:26:33 CDT by Renu Mccarthy M.D.
[2023-12-19 13:47] LABS: Basophils Absolute Auto 0.1 K/mm3 (0.0-0.1); Basophils Percent Auto 0.7 % (0.2-1.2); Eosinophils Absolute Auto 0.2 K/mm3 (0-0.3); Hematocrit 36.3 % (37.0-47.0); Hemoglobin 10.9 g/dL (12.0-15.0); Immature Granulocyte Absolute 0.03 K/mm3 (0.00-0.031); Immature Granulocyte Percent A 0.4 % (0-0.5); Lymphocytes Absolute Auto 1.27 K/mm3 (0.9-3.2); Lymphocytes Percent Auto 17.9 % (18.3-44.2); Mean Corpuscular Hemoglobin 29.6 pg (26-34); Mean Corpuscular Volume 98.6 fl (80-100); Mean Platelet Volume 9.7 fl (7.4-10.4); Monocytes Absolute Auto 0.7 K/mm3 (0.1-0.6); Monocytes Percent Auto 9.9 % (2.6-8.5); Neutrophils Absolute Auto 4.8 K/mm3 (1.3-6.7); Neutrophils Percent Auto 68.1 % (45.5-73.1); Platelet Count Result 206 k/mm3 (150-375); Red Blood Count 3.68 M/mm3 (4.2-5.4); Red Cell Distribution Width 16.4 % (11.5-14.5); White Blood Count 7.1 K/mm3 (4.5-10.0)
[2023-12-19 14:08] LABS: Alanine Aminotransferase 8 U/L (6-35); Albumin Level 3.7 g/dL (3.5-5.1); Alkaline Phosphatase 71 U/L (38-126); Anion Gap 7 mmol/L (4-12); Aspartate Amino Transferase 17 U/L (14-36); Bilirubin,Total 0.7 mg/dL (0.2-1.3); Blood Urea Nitrogen 46 mg/dL (7-17); Calcium 8.8 mg/dL (8.4-10.2); Carbon Dioxide 30 mmol/L (22-30); Chloride 103 mmol/L (98-107); Estimated CRCL calculation 30 ml/min; Estimated Glomerular Filt Rate 47; Glucose 122 mg/dL (65-110); Lipase 25 U/L (23-300); Potassium 6.3 mmol/L (3.4-5.0); Sodium 140 mmol/L (137-145)
[2023-12-19 15:12] LABS: Potassium 5.7 mmol/L (3.4-5.0)
[2023-12-19] MEDS: INSULIN HUMAN REGULAR (*BKC) 100 UNITS/ML IV PUSH (16:23)
[2023-12-19] MEDS: DEXTROSE 50% 25 GM/50 ML SYRINGE IV PUSH (16:24)
[2023-12-19] MEDS: SODIUM BICARBONATE 8.4% 50 MEQ/50 ML SYRINGE IV PUSH (16:24)
[2023-12-19] MEDS: LACTATED RINGERS 1,000 ML 999 ML IV CONT ×2 (16:25→21:09)
[2023-12-19] MEDS: SODIUM ZIRCONIUM CYCLOSILICATE 10 GM POWD.PACK PO (16:25)
[2023-12-19 17:01] LABS: Add Urine Microscopic? NO; Appearance Urine Clear (Clear); Bilirubin Urine Negative (Negative); Blood Urine Negative (Negative); Color Urine Yellow (Yellow); Glucose Urine UA 1+ mg/dL (Negative); Ketones Urine Negative (Negative); Leukocyte Esterase Ur Negative LEU/UL (Negative); Nitrate Urine Negative (Negative); Protein Urine Negative (Negative); Specific Grav Ur > 1.045 (1.001-1.035); Urobilinogen Urine 0.2 mg/dL (<2.0); pH Urine 5.5 (5.0-9.0)
--- NOTE | 2023-12-19 17:36 | ECG_ITS ---
Test Date: 2023-12-19 17:42:13 Measurements Intervals [place] Rate: 56 P: 14 [place]: 114 QRS: -9 QRSD: 86 T: 25 QT: 397 QTc: 384 Interpretive Statements SINUS BRADYCARDIA WITH SHORT [place] INTERVAL POOR R WAVE PROGRESSION Compared to ECG 12/19/2023 13:34:41 NO SIGNIFICANT CHANGES Electronically Signed On 12-20-2023 15:37:31 CDT by Renu Mccarthy M.D.
[2023-12-19 18:01] LABS: Troponin I < 0.012 ng/mL (0.000-0.034)
[2023-12-19 18:44] LABS: Anion Gap 7 mmol/L (4-12); Blood Urea Nitrogen 44 mg/dL (7-17); Calcium 8.7 mg/dL (8.4-10.2); Carbon Dioxide 32 mmol/L (22-30); Chloride 102 mmol/L (98-107); Estimated CRCL calculation 28 ml/min; Estimated Glomerular Filt Rate 43; Glucose 142 mg/dL (65-110); Potassium 5.1 mmol/L (3.4-5.0); Sodium 141 mmol/L (137-145)
[2023-12-19] MEDS: metroNIDAZOLE 500 MG/ISO 100ML 500 MG/100 ML BAG 100 MG IVPB (19:40)
--- NOTE | 2023-12-19 20:40 | PM.IMHP ---
H&P: HPI History of Present Illness Date/Time: 12/19/23 20:40 Chief Complaint: Generalized weakness Narrative: This is an 83-year-old female with past medical history significant for type diabetes mellitus insulin-dependent, dyslipidemia, hypertension, congestive heart failure, osteoporosis, asthma, atrial fibrillation. patient presents to the emergency room due to son's concerns for patient has a generalized weakness over the last few days or so, constipation, abdominal pain. most of the history has been obtained with the help was son who is at bedside patient seems to have trouble remembering details meaningful and contributory to history taking. Preliminary workup was significant for x-ray with bibasilar opacities. Patient has been admitted for further evaluation management and treatment. EXAMINATION: XR chest 2V DATE: 12/19/2023 15:16 INDICATION: Weakness TECHNIQUE: frontal and lateral views of the chest were obtained. COMPARISON: Chest radiograph dated 09/30/[address] dated 10/03/2023 FINDINGS: Mild bibasilar opacities favor atelectasis over pneumonia. No pleural effusion or pneumothorax. Colonic interposition below the anterior right hemidiaphragm. Mild cardiomegaly. Moderate thoracic spondylosis with chronic mild anterior wedging of a few mid thoracic vertebral bodies. IMPRESSION: 1. Mild streaky bibasilar opacities and favor atelectasis over pneumonia. 2. Mild cardiomegaly. EXAMINATION: XR hip RT min 2V DATE: 12/19/2023 15:16 INDICATION: Right hip pain. TECHNIQUE: 2 views of right hip were obtained. COMPARISON: Right hip radiographs 03/24/2022 FINDINGS: Bone alignment is normal. No fracture. There is mild right hip osteoarthritis. IMPRESSION: 1. Mild right hip osteoarthritis. EXAMINATION: CT abdomen pelvis w con DATE: 12/19/2023 16:22 INDICATION: Abdominal pain TECHNIQUE: Computed tomography (CT) of the abdomen and pelvis was performed with 100 mL Omnipaque-350 intravenous contrast. Automated exposure control and iterative reconstruction technique were employed. The dose-length product was 495.63 mGy-cm. COMPARISON: CT dated 10/03/2023, 04/13/2023 and 04/12/2023 FINDINGS: Mild atelectasis/scarring at the anterobasilar left lower lobe. The medial right middle lobe. Heart size is normal. Atherosclerotic coronary artery calcification. Aortic valve and mitral annular calcification. No pericardial or pleural effusion. Unchanged small fat-containing bilateral diaphragmatic hernias. Cholecystectomy clips gallbladder fossa. There are a few scattered hepatic calcified lesions consistent with old granulomatous disease. Spleen, pancreas and bilateral adrenal glands are normal. 1.5 cm right renal cyst. Exophytic 14.0 x 8.0 x 10.8 cm multiloculated cystic mass arising from the anterior interpolar region of the left kidney. The mass demonstrates multiple internal septations, a few thin, <1 mm and a few which appear focally thickened measuring at least 2-3 mm in thickness and with clearly discernible enhancement. There is thickened enhancing soft tissue centrally within the lesion at the confluence of a few septations. This enhancing region measures approximately 10 x 7 x 6 mm. This nodular focus of enhancement which is not evident on the prior imaging would increased vascular classification to a Bosniak 4 lesion. Bladder is normal. Atrophic uterus and bilateral adnexa are unremarkable. There is moderate colonic diverticulosis with a sigmoid predominance. There is no adjacent inflammatory change to suggest diverticulitis. There is a region of increased density in the presacral fat between the coccyx and the posterior wall of the rectum with less stranding in the fat thickening more anteriorly around the periphery of the rectum. Small bowel and appendix are normal. No free intraperitoneal gas or fluid. No pathologically enlarged abdominal or pelvic lymphadenopathy. Scattered degenerative skeletal changes most notable for
--- NOTE | 2023-12-19 22:35 | PC.NURSE ---
This patient, Constanza Ventura, was admitted to [facility] medical Room 256 on 12/19/23. Patient/family oriented to hospital policies and general routines including ID bracelet, bed and alarms, visiting hours, pain management, procedures, bathroom and other care routines, personal items, smoking policy, room service/diet, and visiting hours. Information on how to activate the Rapid Response Team has been discussed. Patient/Family are encouraged to report perceived risks to care and to ask questions if they do not understand what they are told or what they should do.
[2023-12-20] VITALS (14 sets, daily range): BP systolic 121–174; BP diastolic 42–60; PULSE 56–64; RESP 16–20; TEMP 36–36.8; O2SAT 91–98
[2023-12-20] MEDS: levoFLOXacin 750 MG/D5W 150 ML 750 MG/150 ML BAG 100 MG IVPB (03:00)
[2023-12-20] MEDS: metroNIDAZOLE 500 MG/ISO 100ML 500 MG/100 ML BAG 100 MG IVPB ×3 (05:39→21:37)
--- NOTE | 2023-12-20 06:42 | PC.NURSE ---
This RN called pt's son, Julio, updated him about pt. This RN requested that pt's son brings her medication Etodolac from home per pharmacy's request.
--- NOTE | 2023-12-20 07:28 | PM.IMPN ---
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 Will await discussion with patient's son/POA to determine if the patient is interested in further follow-up. If so, will arrange outpatient evaluation and follow-up imaging --Urology consulted (2) Acute kidney injury: Code(s): N17.9 - Acute kidney failure, unspecified Status: Acute Assessment and Plan: Hold etodolac (3) Presacral mass: Code(s): R19.09 - Other intra-abdominal and pelvic swelling, mass and lump Status: Acute Assessment and Plan: CT abd/pelvis noted Stranding surrounding the rectum with increased density in the presacral space suspicious for a proctocolitis which could be infectious, inflammatory or ischemic etiology. --continue cipro/flagyl --GI outpatient --Not having diarrhea (4) Hyperkalemia: Code(s): E87.5 - Hyperkalemia Status: Acute Assessment and Plan: Potassium elevated --Follow Time Spent With Patient Time: 35 minutes Subjective Date/time seen: 12/20/23 07:28 Interval history: Feeling ok overnight No pain currently--stop etodolac since mild ANGELINA and hyperkalemia Urology consulted for renal mass, planning outpatient Pending PT/OT recs Blood pressure ok, have been holding hydralazine--stop for now Review of Systems Review of Systems: generalized weakness All systems reviewed & are unremarkable except as noted in HPI and below Exam Narrative: General: Awake, alert, comfortable, no acute distress HEENT: Normocephalic, atraumatic, sclerae anicteric Respiratory: Normal respiratory effort, no accessory muscle use Abdomen: Nondistended, soft, nontender Skin: Normal coloration, warm and dry Neurologic: No focal neuro deficits noted Psychiatric: Appropriate mood and affect, judgment and insight intact Const: General: comfortable, no acute distress, well developed, alert, awake and average body habitus Nutritional Appearance: average body habitus Orientation/consciousness: patient oriented x3 HENMT: Head: normal to inspection, normocephalic and atraumatic Ears: hearing grossly normal bilaterally Face/Nose/Sinus: normal facial exam Face and sinus: normal facial exam Eyes: General: appearance normal, both eyes and all related structures Pupils: Equal, round and reactive pupils present EOM: EOMs intact bilaterally Neck: Neck: full ROM, no lymphadenopathy and no JVD Thyroid: thyroid normal Lymphatic: no lymphadenopathy noted Resp: Effort & Inspection: normal respiratory effort and able to speak in complete sentences Auscultation: clear to auscultation bilaterally Cardio: Jugular venous distension: no JVD Rate: regular rate Rhythm: regular rhythm Heart sounds: S1 normal heart sound present and S2 normal heart sound present : General: Yes deferred Skin: Rashes: no rashes Wounds: no wounds Neuro: General: patient oriented x3, CN's II-XI intact bilaterally and Unable to assess gait Cranial nerves: Yes CN's II-XII intact bilaterally and Yes Equal, round and reactive pupils present Cognition (Neuro): normal cognition Speech: normal speech Gait exam (Neuro): Normal gait present and Unable to assess gait Motor exam (neuro): 5/5 motor strength present throughout Extrem: General: normal to inspection, full ROM, no joint enlargement and no pedal edema Objective Data Vital Signs Vital Signs: Vital Signs - 24 hr 12/19/23 10:46 12/19/23 13:27 12/19/23 15:38 Temperature 98 F Pulse Rate 60 62 Respiratory Rate 15 16 Blood Pressure 169/96 H Pulse Oximetry 96 100 Oxygen Delivery Room Air Oxygen Flow Rate 2 12/19/23 19:50 12/19/23 21:20 12/19/23 20:00 Temperature 98.4 F Pulse Rate 60 66 66 Respiratory Rate 18 17 Blood Pressure
[2023-12-20] MEDS: hydrALAZINE 12.5 MG TABLET BY MOUTH (08:23)
[2023-12-20] MEDS: FERROUS SULFATE DRIED 142 MG TABCR PO (08:23)
[2023-12-20] MEDS: METOPROLOL TARTRATE 25 MG TABLET 125 MG PO ×2 (08:24→21:37)
[2023-12-20] MEDS: hydrALAZINE HCL 25 MG TABLET BY MOUTH (08:24)
[2023-12-20] MEDS: PANTOPRAZOLE 40 MG TABLET PO (08:25)
[2023-12-20] MEDS: DOXAZOSIN MESYLATE 4 MG TABLET 8 MG PO (08:25)
[2023-12-20 08:59] LABS: Glucose Point of Care 154 mg/dl (65-105)
--- NOTE | 2023-12-20 09:22 | WPDURCON ---
Assessment and Plan Assessment and plan (1) Left renal mass: Code(s): N28.89 - Other specified disorders of kidney and ureter Status: Acute Assessment and Plan: Interval increase in size of left renal mass, consistent with Bosniak 4 lesion. Will await discussion with patient's son/POA to determine if the patient is interested in further follow-up. If so, will arrange outpatient evaluation and follow-up imaging Urology Consult Note HPI Date Seen: 12/20/23 Requesting Physician: Saritha Foster APRN Primary Care Provider: Roel Haynes MD Consult Narrative Narrative: Constanza Ventura is a 83 year old female snf resident with history of known left renal cyst who is currently admitted for ANGELINA and weakness and is being seen in consultation by Urology for evaluation of left renal mass. The patient has a known left renal lesion dating back to 06/2009 when she was previously established with Dr. Starr. She had an MRI at [facility] that showed benign cyst with no enhancing masses that required no further intervention. She did not have further follow-up with him beyond 2010 when she had stable renal ultrasound. In recent years, this mass has had interval increase in size. A CT of the abdomen/pelvis without contrast from 03/2023 demonstrated 13.3 cm left cystic mass with septations lives likely benign. Follow-up CT of the abdomen/pelvis with and without contrast again showed 13.3 cm left cystic mass with thin septations felt to be benign. She had a chest CTA in 09/2023 which demonstrated large thinly septated partially visualized left cystic mass felt to be consistent with benign renal cyst. On arrival to the ER on 12/19/2023, CT of the abdomen/pelvis with contrast was completed for evaluation of abdominal pain which shows of 14 cm exophytic multiloculated cystic mass of the left kidney with multiple internal septations, some then and some focally thickened with clearly discernible enhancement and enhancing soft tissue centrally within the lesion at the confluence of a few septations which would increased classification to Bosniak 4 lesion. The patient denies left flank pain or back pain. She denies hematuria. She denies any family history of kidney or bladder cancer. She is resting comfortably at this time and has no concerns. We discussed her CT findings. She states that she is unsure if she would like to proceed with any additional imaging or evaluation without talking to her son who is her medical power of trademark attorney. Review of Systems Review of Systems: All systems reviewed & are unremarkable except as noted in HPI and below PMFSH Past Medical History Medical History Acquired hypertriglyceridemia Age related osteoporosis Aortic atherosclerosis Asthma Atrial fibrillation B12 deficiency Chronic anticoagulation Chronic systolic (congestive) heart failure Gastroesophageal reflux disease GERD (gastroesophageal reflux disease) Gout Hepatic steatosis Hypertension Insulin dependent type 2 diabetes mellitus Macular degeneration Nonexudative age-related macular degeneration, right eye, intermediate dry stage Overactive bladder Surgical History Surgical History History of cholecystectomy History of repair of rotator cuff Family History Family History Father Asthma Cerebrovascular accident Family history of diabetes mellitus in first degree relative Sibling Family history of diabetes mellitus in first degree relative Family history of malignant neoplasm of urinary bladder Mother Family history of heart disease in male family member before age 55 Other Family history of arthritis Hypertension Social History Social History [facility]
--- NOTE | 2023-12-20 11:09 | PHAR ---
VERIFIED HOME MED: * Use from home * Etodolac 300 mg capsule take 1 capsule by mouth three times daily
[2023-12-20] MEDS: ALBUTEROL SULFATE (*SP) AEROSOL 1 PUFF 2 PUFF INHALATION (11:52)
[2023-12-20 12:02] LABS: Glucose Point of Care 157 mg/dl (65-105)
[2023-12-20 17:04] LABS: Glucose Point of Care 155 mg/dl (65-105)
[2023-12-20 21:29] LABS: Glucose Point of Care 232 mg/dl (65-105)
[2023-12-20] MEDS: INSULIN GLARGINE (*BKC) 100 UNITS/ML 8 UNITS SUB-Q (21:33)
[2023-12-20] MEDS: INSULIN ASPART (*BKC) 100 UNITS/ML SUB-Q (21:34)
[2023-12-21] VITALS (10 sets, daily range): BP systolic 134–166; BP diastolic 47–53; PULSE 55–66; RESP 12–20; TEMP 36.5–36.6; O2SAT 95–99; BMI 26.6
[2023-12-21] MEDS: ALBUTEROL SULFATE (*SP) AEROSOL 1 PUFF 2 PUFF INHALATION ×2 (01:51→21:01)
[2023-12-21] MEDS: ACETAMINOPHEN 500 MG TABLET 1000 MG PO ×2 (05:00→21:32)
[2023-12-21] MEDS: metroNIDAZOLE 500 MG/ISO 100ML 500 MG/100 ML BAG 100 MG IVPB ×2 (05:15→15:28)
[2023-12-21 07:59] LABS: Glucose Point of Care 161 mg/dl (65-105)
[2023-12-21 08:43] LABS: Basophils Absolute Auto 0.1 K/mm3 (0.0-0.1); Basophils Percent Auto 0.7 % (0.2-1.2); Eosinophils Absolute Auto 0.2 K/mm3 (0-0.3); Eosinophils Percent Auto 3.2 % (0-4.4); Hematocrit 34.6 % (37.0-47.0); Immature Granulocyte Absolute 0.04 K/mm3 (0.00-0.031); Immature Granulocyte Percent A 0.6 % (0-0.5); Lymphocytes Absolute Auto 1.09 K/mm3 (0.9-3.2); Lymphocytes Percent Auto 15.9 % (18.3-44.2); Mean Corpuscular HGB Conc 28.9 g/dl (32-36); Mean Corpuscular Hemoglobin 29.2 pg (26-34); Mean Corpuscular Volume 100.9 fl (80-100); Monocytes Absolute Auto 0.8 K/mm3 (0.1-0.6); Monocytes Percent Auto 11.4 % (2.6-8.5); Neutrophils Absolute Auto 4.7 K/mm3 (1.3-6.7); Neutrophils Percent Auto 68.2 % (45.5-73.1); Platelet Count Result 173 k/mm3 (150-375); Red Blood Count 3.43 M/mm3 (4.2-5.4); Red Cell Distribution Width 16.3 % (11.5-14.5); White Blood Count 6.9 K/mm3 (4.5-10.0)
[2023-12-21 08:50] LABS: Lactic Acid Reflex 0.6 mmol/L (0.7-2.0)
[2023-12-21 08:52] LABS: Anion Gap 4 mmol/L (4-12); Blood Urea Nitrogen 25 mg/dL (7-17); Calcium 8.6 mg/dL (8.4-10.2); Carbon Dioxide 33 mmol/L (22-30); Chloride 101 mmol/L (98-107); Estimated CRCL calculation 38 ml/min; Estimated Glomerular Filt Rate 60; Glucose 158 mg/dL (65-110); Potassium 5.3 mmol/L (3.4-5.0); Sodium 138 mmol/L (137-145)
[2023-12-21] MEDS: DOXAZOSIN MESYLATE 4 MG TABLET 8 MG PO (08:58)
[2023-12-21] MEDS: METOPROLOL TARTRATE 25 MG TABLET 125 MG PO ×2 (08:59→21:21)
[2023-12-21] MEDS: ENOXAPARIN 40 MG/0.4 ML SYRINGE SUB-Q (08:59)
[2023-12-21] MEDS: PANTOPRAZOLE 40 MG TABLET PO (08:59)
[2023-12-21] MEDS: FERROUS SULFATE DRIED 142 MG TABCR PO (08:59)
[2023-12-21 09:02] LABS: CRP < 0.5 mg/dL (<1.0)
[2023-12-21 10:18] LABS: Erythrocyte Sedimentation Rate 22 mm/hr (0-20)
[2023-12-21 12:00] LABS: Glucose Point of Care 135 mg/dl (65-105)
[2023-12-21] MEDS: INSULIN ASPART (*BKC) 100 UNITS/ML SUB-Q ×3 (12:04→21:25)
--- NOTE | 2023-12-21 14:13 | PM.IMPN ---
Progress Note: A&P Assessment and Plan (1) Left renal mass: Code(s): N28.89 - Other specified disorders of kidney and ureter Status: Acute (2) Acute kidney injury: Code(s): N17.9 - Acute kidney failure, unspecified Status: Acute Assessment and Plan: Hold etodolac (3) Presacral mass: Code(s): R19.09 - Other intra-abdominal and pelvic swelling, mass and lump Status: Acute Assessment and Plan: (4) Hyperkalemia: Code(s): E87.5 - Hyperkalemia Status: Acute (5) Acute respiratory failure: Qualifiers: Respiratory failure complication: hypoxia Qualified Code(s): J96.01 - Acute respiratory failure with hypoxia Code(s): J96.00 - Acute respiratory failure, unspecified whether with hypoxia or hypercapnia Status: Acute Plan Acute respiratory failure CAP TTE 10/01/23 LVEF >70%, left atrial enlargement. On 2L O2 Acute respiratory failure, with hypoxia Repeat Chest xray in AM Wean O2 for sats >90%, may need oxygen for discharge Schedule albuterol inhaler TID ANGELINA Hyperkalemia?Potassium elevated, 5.3 --EKG Sinus carole, HR 54, stopped etodolac 12/19 --Start Lokelma BID --On dextrose fluids --s/p albuterol inhaler, schedule nebs overnight Presacral mass Constipation CT abd/pelvis 12/18 noted Stranding surrounding the rectum with increased density in the presacral space suspicious for a proctocolitis which could be infectious, inflammatory or ischemic etiology. Patient reports rectal pressure for several days, mildly increased pain, and no BM for several days --continue levaquin/flagyl given respiratory symptoms --GI outpatient --Not having diarrhea --Receiving lokelma, continue bisacodyl suppository 10 BID Left renal mass ?Interval increase in size of left renal mass, consistent with Bosniak 4 lesion.? Will await discussion with patient's son/POA to determine if the patient is interested in further follow-up. ?If so, will arrange outpatient evaluation and follow-up imaging --Urology consulted Hypertension Blood pressure trending up?166/47 this evening --Restart hydralazine 12.5 TID --Continue home metoprolol Time Spent With Patient Time: 36 minutes Subjective Date/time seen: 12/21/23 14:13 Interval history: Short of breath with activity, improved after albuterol inhaler. Basilar crackles on exam and on 2L O2 (RA at home) Worked with therapy today and reports feeling well. Potassium trending up, started lokelma Eating more today, but has had poor PO intake for weeks and reports loosing pants sizes No pain currently--stop etodolac since mild ANGELINA and hyperkalemia Urology consulted for renal mass, planning outpatient Consult GI for presacral proctocolitis--patient reports increased pressure for at least a few days, slightly more painful. Hasn't had a BM in several days Pending PT/OT recs Blood pressure trending up, restarted hydralazine Review of Systems Review of Systems: generalized weakness All systems reviewed & are unremarkable except as noted in HPI and below Exam Narrative: General: Awake, alert, comfortable, no acute distress HEENT: Normocephalic, atraumatic, sclerae anicteric Respiratory: Normal respiratory effort, crackles to bases, no accessory muscle use Abdomen: Nondistended, soft, nontender Skin: Normal coloration, warm and dry Neurologic: No focal neuro deficits noted Psychiatric: Appropriate mood and affect, judgment and insight intact Const: General: comfortable, no acute distress, well developed, alert, awake and average body habitus Nutritional Appearance: average body habitus Orientation/consciousness: patient oriented x3 HENMT: Head: normal to inspection, normocephalic and atraumatic Ears: hearing grossly normal bilaterally Face/Nose/Sinus: normal facial exam Face and sinus: normal facial exam Eyes: General: appearance normal, both eyes and all related structures Pupils: E
--- NOTE | 2023-12-21 14:19 | ECG_ITS ---
Test Date: 2023-12-21 14:33:26 Measurements Intervals [place] Rate: 54 P: 37 MA: 151 QRS: -11 QRSD: 79 T: 19 QT: 402 QTc: 382 Interpretive Statements SINUS BRADYCARDIA POOR R-WAVE PROGRESSION ABNORMAL ECG Compared to ECG 12/19/2023 17:42:13 NO DIFFERENCE Electronically Signed On 12-22-2023 13:10:23 CDT by Sandoval Higuera M.D.
--- NOTE | 2023-12-21 15:25 | WPDUROPN2 ---
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 She is unsure if she would like to pursue further follow up and wishes to discuss further with her son. If she chooses to further evaluation, would proceed with MRI renal mass protocol and arrange outpatient follow up based on results. Subjective Subjective Date/Time Seen: 12/21/23 15:25 Interval history: Doing well today. Reports good appetite. Denies N/V/F/C. No flank pain or back pain. Review of Systems Review of Systems: All systems reviewed & are unremarkable except as noted in HPI and below Exam Narrative: General: Awake, alert, comfortable, no acute distress HEENT: Normocephalic, atraumatic, sclerae anicteric Respiratory: Normal respiratory effort, no accessory muscle use Abdomen: Nondistended, soft, nontender Skin: Normal coloration, warm and dry Neurologic: No focal neuro deficits noted Psychiatric: Appropriate mood and affect, judgment and insight intact Objective Data Vital Signs Vital Signs: Vital Signs - 24 hr 12/20/23 17:45 12/20/23 16:00 12/20/23 21:38 Temperature 97.2 F L 98 F Pulse Rate 61 56 L 60 Respiratory Rate 18 20 Blood Pressure 128/42 L 151/60 H Pulse Oximetry 96 98 Oxygen Delivery Oxygen Flow Rate 12/20/23 20:00 12/20/23 20:00 12/21/23 00:00 Temperature Pulse Rate 60 63 65 Respiratory Rate 20 Blood Pressure Pulse Oximetry 98 Oxygen Delivery Room Air Oxygen Flow Rate 12/21/23 04:00 12/21/23 06:00 12/21/23 09:20 Temperature 98 F Pulse Rate 62 61 Respiratory Rate 20 Blood Pressure 149/50 H Pulse Oximetry 95 Oxygen Delivery Nasal Cannula Oxygen Flow Rate 3 Intake/Output Intake/Output: Intake & Output 12/18/23 12/19/23 12/20/23 12/21/23 23:59 23:59 23:59 23:59 Intake Total 1150 1360 540 Output Total 480 600 340 Balance 670 760 200 Meds/Results Medications: Active Medications Generic Name Dose Route Start Last Admin Trade Name Freq PRN Reason Stop Dose Admin Acetaminophen 1,000 mg 12/20/23 01:13 12/21/23 05:00 Acetaminophen 500 Mg Tablet PO 1,000 mg Q6H PRN Administration pain 1-3 Albuterol 2 puff 12/20/23 01:13 12/21/23 01:51 Albuterol Sulfate (*Sp) Aerosol 1 Puff INHALATION 2 puff Q2HRT PRN Administration sob, wheezing Dextrose 12.5 gm 12/20/23 07:36 Dextrose 50% 25 Gm/50 Ml Syringe IV PUSH PRN PRN Hypoglycemia Protocol Doxazosin Mesylate 8 mg 12/20/23 09:00 12/21/23 08:58 Doxazosin Mesylate 4 Mg Tablet PO 8 mg DAILY ROSEMARIE Administration Enoxaparin Sodium 40 mg 12/21/23 09:00 12/21/23 08:59 Enoxaparin 40 Mg/0.4 Ml Syringe SUB-Q 40 mg DAILY ROSEMARIE Administration Ferrous Sulfate 142 mg 12/20/23 08:00 12/21/23 08:59 Ferrous Sulfate Dried 142 Mg Tabcr PO 142 mg DAILY@0800 ROSEMARIE Administration Glucagon 1 mg 12/20/23 07:36 Glucagon For Inj 1 Mg Vial IM PRN PRN Hypoglycemia Protocol Glucose 15 gm 12/20/23 07:36 Glucose Oral Gel 15 Gm Of Glucse In 37.5 Gm Tube PO PRN PRN Hypoglycemia Protocol Hydralazine HCl 12.5 mg 12/20/23 09:00 12/20/23 18:43 Hydralazine 12.5 Mg Tablet BY MOUTH Not Given TID [facility] Hydralazine HCl 25 mg 12/20/23 09:00 12/20/23 18:44 Hydralazine Hcl 25 Mg Tablet BY MOUTH Not Given TID ROSEMARIE Metronidazole 500 mg in 100 mls @ 100 mls/hr 12/20/23 06:00 12/21/23 05:15 Flagyl 500 Mg/Iso Soln 100 Ml IVPB 100 mls/hr Q8HR ROSEMARIE Administration Levofloxacin/Dextrose 750 mg in 150 mls @ 100 mls/hr 12/20/23 02:00 12/20/23 03:00 Levaquin 750 Mg/D5w 150 Ml IVPB 100 mls/hr Q48H ROSEMARIE Administration Dextrose 1,000 mls @ 100 mls/hr 12/20/23 07:36 Dextrose 5% 1,000 Ml IVPB
[2023-12-21] MEDS: SODIUM ZIRCONIUM CYCLOSILICATE 10 GM POWD.PACK PO (15:33)
[2023-12-21 16:43] LABS: Glucose Point of Care 130 mg/dl (65-105)
[2023-12-21] MEDS: hydrALAZINE 12.5 MG TABLET BY MOUTH (17:39)
[2023-12-21 21:05] LABS: Glucose Point of Care 187 mg/dl (65-105)
[2023-12-21] MEDS: INSULIN GLARGINE (*BKC) 100 UNITS/ML 8 UNITS SUB-Q (21:27)
[2023-12-21] MEDS: metroNIDAZOLE 500 MG TABLET PO (21:28)
[2023-12-22] VITALS (17 sets, daily range): BP systolic 107–164; BP diastolic 55–81; PULSE 49–75; RESP 16–20; TEMP 36.4–36.7; O2SAT 83–99
[2023-12-22] MEDS: metroNIDAZOLE 500 MG TABLET PO ×3 (05:52→20:40)
--- NOTE | 2023-12-22 07:54 | PM.IMPN ---
Progress Note: A&P Assessment and Plan (1) Left renal mass: Code(s): N28.89 - Other specified disorders of kidney and ureter Status: Acute Assessment and Plan: (2) Bradycardia: Code(s): R00.1 - Bradycardia, unspecified Status: Acute (3) Acute respiratory failure: Qualifiers: Respiratory failure complication: hypoxia Qualified Code(s): J96.01 - Acute respiratory failure with hypoxia Code(s): J96.00 - Acute respiratory failure, unspecified whether with hypoxia or hypercapnia Status: Acute (4) Hyperkalemia: Code(s): E87.5 - Hyperkalemia Status: Acute (5) Presacral mass: Code(s): R19.09 - Other intra-abdominal and pelvic swelling, mass and lump Status: Acute (6) Acute kidney injury: Code(s): N17.9 - Acute kidney failure, unspecified Status: Acute (7) Anemia: Code(s): D64.9 - Anemia, unspecified Status: Acute Plan Acute respiratory failure CAP TTE 10/01/23 LVEF >70%, left atrial enlargement. On 2L O2 Acute respiratory failure, with hypoxia Repeat Chest xray showed mild bibasilar interstitial disease vs COPD. No consolidation or effusion Wean O2 for sats >90%, suspect she may need oxygen for discharge Schedule albuterol inhaler TID Anemia?Blood count Check Iron panel, ferritin, B12. Follow CBC, replete Iron Poor PO intake?GI consulted, patient discussing scope. Patient would like to think about it more, discuss with son ANGELINA Hyperkalemia?Potassium elevated, 5.3 on admission, normalized with fluids and lokelma --EKG Sinus carole, HR 54, stopped etodolac 12/19 --Started Lokelma BID, decrease to daily. --On D5@100/hr --s/p albuterol inhaler, schedule nebs overnight Presacral mass Constipation CT abd/pelvis 12/18 noted Stranding surrounding the rectum with increased density in the presacral space suspicious for a proctocolitis which could be infectious, inflammatory or ischemic etiology. Patient reports rectal pressure for several days, mildly increased pain, and no BM for several days --continue levaquin/flagyl given respiratory symptoms --GI outpatient --Not having diarrhea --Receiving lokelma, continue bisacodyl suppository 10 BID Left renal mass ?Interval increase in size of left renal mass, consistent with Bosniak 4 lesion.? Will await discussion with patient's son/POA to determine if the patient is interested in further follow-up. ?If so, will arrange outpatient evaluation and follow-up imaging --Urology consulted, MR I if patient agreeable Hypertension Blood pressure trending up?166/47 this evening --Restarted hydralazine 12.5 TID, increase dose to 25 TID in AM --Continue home metoprolol, but decreased dose for bradycardia Bradycardia?asymptomatic --Decrease metoprolol from 125 BID to 75 BID ?continue to monitor Weakness?PT/OT Time Spent With Patient Time: 45 Subjective Date/time seen: 12/22/23 07:54 Interval history: Had a BM. Creatinine improving GI consulted, discussed EGD and colonoscopy with her but patient may opt to do as an outpatinet Urology consulted and recommending an MRI but she wishes to speak to her son first INR 1.9 SB, HR 40's but asymptomatic, decreasing metoprolol Review of Systems Review of Systems: generalized weakness All systems reviewed & are unremarkable except as noted in HPI and below Exam Narrative: General: Awake, alert, comfortable, no acute distress HEENT: Normocephalic, atraumatic, sclerae anicteric Respiratory: Normal respiratory effort, no accessory muscle use Abdomen: Nondistended, soft, nontender Skin: Normal coloration, warm and dry Neurologic: No focal neuro deficits noted Psychiatric: Appropriate mood and affect, slightly forgetful, judgment and insight fair Const: General: comfortable, no acute distress, well developed, alert, awake and average body habitus Nutritional Appearance: average body habitus Orientation/
[2023-12-22 08:03] LABS: Glucose Point of Care 79 mg/dl (65-105)
[2023-12-22] MEDS: ALBUTEROL SULFATE (*SP) AEROSOL 1 PUFF 2 PUFF INHALATION ×4 (08:53→20:13)
[2023-12-22 08:57] LABS: Basophils Absolute Auto 0.1 K/mm3 (0.0-0.1); Basophils Percent Auto 0.8 % (0.2-1.2); Eosinophils Absolute Auto 0.2 K/mm3 (0-0.3); Eosinophils Percent Auto 3.3 % (0-4.4); Hematocrit 35.9 % (37.0-47.0); Hemoglobin 10.5 g/dL (12.0-15.0); Immature Granulocyte Absolute 0.04 K/mm3 (0.00-0.031); Immature Granulocyte Percent A 0.6 % (0-0.5); Lymphocytes Absolute Auto 1.05 K/mm3 (0.9-3.2); Lymphocytes Percent Auto 14.6 % (18.3-44.2); Mean Corpuscular HGB Conc 29.2 g/dl (32-36); Mean Corpuscular Hemoglobin 29.2 pg (26-34); Mean Corpuscular Volume 99.7 fl (80-100); Monocytes Absolute Auto 0.6 K/mm3 (0.1-0.6); Monocytes Percent Auto 8.9 % (2.6-8.5); Neutrophils Absolute Auto 5.1 K/mm3 (1.3-6.7); Neutrophils Percent Auto 71.8 % (45.5-73.1); Platelet Count Result 178 k/mm3 (150-375); White Blood Count 7.2 K/mm3 (4.5-10.0)
[2023-12-22 09:30] LABS: Anion Gap 5 mmol/L (4-12); Blood Urea Nitrogen 18 mg/dL (7-17); Calcium 8.9 mg/dL (8.4-10.2); Carbon Dioxide 33 mmol/L (22-30); Chloride 101 mmol/L (98-107); Estimated CRCL calculation 38 ml/min; Estimated Glomerular Filt Rate 60; Glucose 161 mg/dL (65-110); Potassium 4.9 mmol/L (3.4-5.0); Sodium 139 mmol/L (137-145)
[2023-12-22 09:38] LABS: Hypochromasia 2+; Platelet Estimate Adequate (Adequate)
[2023-12-22 09:39] LABS: Schistocytes Rare
--- NOTE | 2023-12-22 10:00 | WPDUROPN2 ---
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 She is unsure if she would like to pursue further follow up and wishes to discuss further with her son. If she chooses to further evaluation, would proceed with MRI renal mass protocol and arrange outpatient follow up based on results. Still has not made decision regarding this. Subjective Subjective Date/Time Seen: 12/22/23 10:00 Interval history: Doing well today. Complains of constipation. Appears slightly forgetful but able to answer all questions appropriately. Denies flank pain, back pain, nausea, vomiting, fever, or chills. Review of Systems Review of Systems: All systems reviewed & are unremarkable except as noted in HPI and below Exam Narrative: General: Awake, alert, comfortable, no acute distress HEENT: Normocephalic, atraumatic, sclerae anicteric Respiratory: Normal respiratory effort, no accessory muscle use Abdomen: Nondistended, soft, nontender Skin: Normal coloration, warm and dry Neurologic: No focal neuro deficits noted Psychiatric: Appropriate mood and affect, slightly forgetful, judgment and insight fair Objective Data Vital Signs Vital Signs: Vital Signs - 24 hr 12/21/23 15:08 12/21/23 20:07 12/21/23 20:00 Temperature 97.7 F 97.8 F Pulse Rate 55 L 62 64 Respiratory Rate 12 20 Blood Pressure 166/47 H 134/53 L Pulse Oximetry 99 95 Oxygen Delivery Oxygen Flow Rate Fraction of Inspired Oxygen 12/21/23 20:00 12/21/23 21:21 12/21/23 21:31 Temperature Pulse Rate 66 61 Respiratory Rate Blood Pressure Pulse Oximetry 95 97 Oxygen Delivery Nasal Cannula Oxygen Flow Rate 2 2 Fraction of Inspired Oxygen 12/22/23 00:00 12/22/23 04:00 12/22/23 06:00 Temperature 98.0 F Pulse Rate 55 L 54 L 61 Respiratory Rate 20 Blood Pressure 151/55 H Pulse Oximetry 99 Oxygen Delivery Oxygen Flow Rate Fraction of Inspired Oxygen 12/22/23 08:54 12/22/23 08:54 12/22/23 09:55 Temperature Pulse Rate 68 69 Respiratory Rate 18 18 Blood Pressure Pulse Oximetry 98 83 L Oxygen Delivery Nasal Cannula Room Air Oxygen Flow Rate 2 Fraction of Inspired Oxygen 12/22/23 09:58 Temperature Pulse Rate Respiratory Rate Blood Pressure Pulse Oximetry 92 Oxygen Delivery Nasal Cannula Oxygen Flow Rate 2 Fraction of Inspired Oxygen 28 Intake/Output Intake/Output: Intake & Output 12/19/23 12/20/23 12/21/23 12/22/23 23:59 23:59 23:59 23:59 Intake Total 1150 1360 1300 320 Output Total 480 600 440 450 Balance 670 760 860 -130 Meds/Results Medications: Active Medications Generic Name Dose Route Start Last Admin Trade Name Freq PRN Reason Stop Dose Admin Acetaminophen 1,000 mg 12/20/23 01:13 12/21/23 21:32 Acetaminophen 500 Mg Tablet PO 1,000 mg Q6H PRN Administration pain 1-3 Albuterol 2 puff 12/20/23 01:13 12/21/23 01:51 Albuterol Sulfate (*Sp) Aerosol 1 Puff INHALATION 2 puff Q2HRT PRN Administration sob, wheezing Albuterol 2 puff 12/21/23 20:00 12/22/23 08:53 Albuterol Sulfate (*Sp) Aerosol 1 Puff INHALATION 2 puff QIDRT ROSEMARIE Administration Bisacodyl 10 mg 12/22/23 09:00 Bisacodyl 10 Mg Suppository RECTAL 12/23/23 18:00 BID ROSEMARIE Dextrose 12.5 gm 12/20/23 07:36 Dextrose 50% 25 Gm/50 Ml Syringe IV PUSH PRN PRN Hypoglycemia Protocol Doxazosin Mesylate 8 mg 12/20/23 09:00 12/21/23 08:58 Doxazosin Mesylate 4 Mg Tablet PO 8 mg DAILY ROSEMARIE Administration Enoxaparin Sodium 40 mg 12/21/23 09:00 12/21/23 08:59 Enoxaparin 40 Mg/0.4 Ml Syringe SUB-Q 40 mg DAILY ROSEMARIE Administration Ferrous Sulfate 142 mg 12/22/23 12:00 Ferrous Sulfate Dried 142 Mg Tabcr PO
[2023-12-22] MEDS: hydrALAZINE 12.5 MG TABLET BY MOUTH ×3 (10:15→17:45)
[2023-12-22] MEDS: levoFLOXacin 750 MG TABLET PO (10:15)
[2023-12-22] MEDS: DOXAZOSIN MESYLATE 4 MG TABLET 8 MG PO (10:15)
[2023-12-22] MEDS: PANTOPRAZOLE 40 MG TABLET PO (10:15)
[2023-12-22] MEDS: TOLNAFTATE 1% POWDER 45 GM BTL 1 APPLIC TOPICAL ×2 (10:16→20:34)
[2023-12-22] MEDS: METOPROLOL TARTRATE 25 MG TABLET 125 MG PO (10:16)
[2023-12-22] MEDS: SODIUM ZIRCONIUM CYCLOSILICATE 10 GM POWD.PACK PO (10:16)
[2023-12-22] MEDS: ENOXAPARIN 40 MG/0.4 ML SYRINGE SUB-Q (10:17)
[2023-12-22] MEDS: ACETAMINOPHEN 500 MG TABLET 1000 MG PO (10:21)
[2023-12-22 12:06] LABS: Glucose Point of Care 188 mg/dl (65-105)
--- NOTE | 2023-12-22 12:42 | P.CONGI_ITS ---
I, Johnny Lynch MD, have provided a substantive portion of the care of this patient and discussed the patient with my Nurse Practitioner. I have reviewed any new relevant radiographic and laboratory results including medications. I agree with her documentation as noted below.?I personally performed the medical decision making and much of the history and exam for this encounter. briefly, here with more constipation, decrease appetite. She has been using nsaid's because leg pain. Also rectal discomfort. CT scan noted large cystic lesion in kidney for which urology is on board but also inflammation in rectum could be proctitis. Her last colonoscopy 2011 with hemorrhoids, finally her son is here and now she is agreeable to have EGD and colonoscopy tomorrow. More recommendations after scope. Assessment and Plan Assessment and plan (1) Proctocolitis: Code(s): K52.9 - Noninfective gastroenteritis and colitis, unspecified Status: Acute (2) Constipation: Qualifiers: Constipation type: unspecified constipation type Qualified Code(s): K59.00 - Constipation, unspecified Code(s): K59.00 - Constipation, unspecified Status: Acute (3) Macrocytic anemia: Code(s): D53.9 - Nutritional anemia, unspecified Status: Acute (4) Appetite loss: Code(s): R63.0 - Anorexia Status: Acute (5) Early satiety: Code(s): R68.81 - Early satiety Status: Acute (6) Excessive use of nonsteroidal anti-inflammatory drugs (NSAIDs): Code(s): F19.90 - Other psychoactive substance use, unspecified, uncomplicated Status: Acute Plan 1. Constipation/Proctocolitis: Last colonoscopy in 2011 showed internal hemorrhoids. Patient typically has daily bowel movements that are formed and non urgent but over the past week has been experiencing constipation. Patient states that she went 7 days without a bowel movement before her admission and since admission has had 2 small incomplete bowel movements with straining. Denies hematochezia or rectal pain. CT shows rectal stranding suspicious for proctocolitis * Continue antibiotics * Continue Dulcolax suppositories BID as needed * Add Miralax daily 2. Decreased appetite/GERD/early satiety: Patient has never had an EGD. Per patient over the past few weeks she has been taking Tylenol and ibuprofen multiple times daily for leg pain. Since starting NSAIDs she has been having decreased appetite and early satiety. According to records she is on pantoprazole 40 mg daily at home. Denies hematemesis or melena. Discussed possibility of endoscopic evaluation but patient currently declines to proceed with any colonoscopy or EGD at this time. * Will treat empirically for gastritis/peptic ulcer disease secondary to NSAIDs * Continue pantoprazole * Discontinue NSAIDs or decrease to the lowest effective dose * Start carafate 1 gm QID 3. Chronic macrocytic anemia: Patient with anemia of chronic disease. HGB in the 8 in September today CBC shows HGB 11, HCT 36, MCV 100, platelets 178. Workup in September showed iron deficiency with total iron 15, TIBC 359, iron saturation 4, and ferritin 10. B12 and folate were normal in September. No signs of active GI bleeding at this time. * Will recheck iron panel, primary care team to replace if low * as mentioned above may consider endoscopic evaluation if no improvement and if patient decides she would like to proceed Thank you very much for allowing me to share in the care of this very nice patient. This report may have been done utilizing a voice recognition system. Attempts cavanaugh
--- NOTE | 2023-12-22 12:42 | WPDGICN ---
Assessment and Plan Assessment and plan (1) Proctocolitis: Code(s): K52.9 - Noninfective gastroenteritis and colitis, unspecified Status: Acute (2) Constipation: Qualifiers: Constipation type: unspecified constipation type Qualified Code(s): K59.00 - Constipation, unspecified Code(s): K59.00 - Constipation, unspecified Status: Acute (3) Macrocytic anemia: Code(s): D53.9 - Nutritional anemia, unspecified Status: Acute (4) Appetite loss: Code(s): R63.0 - Anorexia Status: Acute (5) Early satiety: Code(s): R68.81 - Early satiety Status: Acute (6) Excessive use of nonsteroidal anti-inflammatory drugs (NSAIDs): Code(s): F19.90 - Other psychoactive substance use, unspecified, uncomplicated Status: Acute Plan 1. Constipation/Proctocolitis: Last colonoscopy in 2011 showed internal hemorrhoids. Patient typically has daily bowel movements that are formed and non urgent but over the past week has been experiencing constipation. Patient states that she went 7 days without a bowel movement before her admission and since admission has had 2 small incomplete bowel movements with straining. Denies hematochezia or rectal pain. CT shows rectal stranding suspicious for proctocolitis Continue antibiotics Continue Dulcolax suppositories BID as needed Add Miralax daily 2. Decreased appetite/GERD/early satiety: Patient has never had an EGD. Per patient over the past few weeks she has been taking Tylenol and ibuprofen multiple times daily for leg pain. Since starting NSAIDs she has been having decreased appetite and early satiety. According to records she is on pantoprazole 40 mg daily at home. Denies hematemesis or melena. Discussed possibility of endoscopic evaluation but patient currently declines to proceed with any colonoscopy or EGD at this time. Will treat empirically for gastritis/peptic ulcer disease secondary to NSAIDs Continue pantoprazole Discontinue NSAIDs or decrease to the lowest effective dose Start carafate 1 gm QID 3. Chronic macrocytic anemia: Patient with anemia of chronic disease. HGB in the 8 in September today CBC shows HGB 11, HCT 36, MCV 100, platelets 178. Workup in September showed iron deficiency with total iron 15, TIBC 359, iron saturation 4, and ferritin 10. B12 and folate were normal in September. No signs of active GI bleeding at this time. Will recheck iron panel, primary care team to replace if low as mentioned above may consider endoscopic evaluation if no improvement and if patient decides she would like to proceed Thank you very much for allowing me to share in the care of this very nice patient. This report may have been done utilizing a voice recognition system. Attempts have been made to correct errors. However, there may be uncorrected grammatical, spelling, and recognition errors present. GI Consult Note Consult date/time: 12/22/23 12:42 Reason for consult: proctocolitis and poor appetite HPI: This is a pleasant 83 year-old female with a past medical surgical history of asthma, AFib, CHF, GERD, gout, hepatic steatosis, HTN, diabetes, macular degeneration, uterine prolapse, history of C-Diff and cholecystectomy. She presented to the ER room 12/19/2023 with complaints of abdominal pain, constipation, and decreased appetite. GI consulted for proctocolitis and poor appetite. Patient was admitted for acute kidney injury and hypokalemia. She reports constipation for 7 days prior to admission, with 2 small bowel movements since with straining. Denies rectal pain or hematochezia. Prior to last week she was having daily bowel movements that were formed and non urgent. She has been using Dulcolax suppositories on an as-needed basis at home but had not taken 1 prior to her recent admission. Denies current abdominal pain, nausea, vomiting, Unexplained weight loss or difficulty swallowing. Reflux well controlled on
[2023-12-22] MEDS: FERROUS SULFATE DRIED 142 MG TABCR PO (13:04)
[2023-12-22] MEDS: INSULIN ASPART (*BKC) 100 UNITS/ML SUB-Q ×3 (13:05→20:34)
[2023-12-22 17:10] LABS: Glucose Point of Care 73 mg/dl (65-105)
[2023-12-22] MEDS: SUCRALFATE SUSP 100 MG/ML 10 ML UDC 1000 MG PO ×2 (17:45→20:37)
[2023-12-22] MEDS: BISACODYL 5 MG TABLET EC 20 MG PO (18:58)
[2023-12-22] MEDS: polyethylene glycoL 3350 238 GM BOTTLE PO (18:59)
[2023-12-22] MEDS: INSULIN GLARGINE (*BKC) 100 UNITS/ML 8 UNITS SUB-Q (20:32)
[2023-12-22] MEDS: METOPROLOL TARTRATE 25 MG TABLET 75 MG PO (20:33)
[2023-12-22] MEDS: ONDANSETRON INJ 4 MG/2 ML VIAL IV PUSH (21:19)
[2023-12-22 21:49] LABS: Glucose Point of Care 179 mg/dl (65-105)
[2023-12-23] VITALS (18 sets, daily range): BP systolic 146–190; BP diastolic 56–81; PULSE 62–81; RESP 16–20; TEMP 36.4–36.9; O2SAT 94–99
--- NOTE | 2023-12-23 05:11 | PC.NURSE ---
12/21 2099 PT VOMITTING AFTER DRINKING GATORADE WITH MIRALAX FOR BOWEL PREP. DR DONNIE SEBASTIAN NOTIFIED ORDER FOR ZOFRAN. INFORMED DR THAT PT DOESNT THINK SHE IS GOING TO BE ABLE TO FINISH BOWEL PREP
--- NOTE | 2023-12-23 05:36 | PC.NURSE ---
2300 PT REFUSES TO DRINK ANY MORE BOWEL PREP. DRANK APPROXIMATELY HALF OF PREP
[2023-12-23 06:05] LABS: Anion Gap 7 mmol/L (4-12); Blood Urea Nitrogen 18 mg/dL (7-17); Calcium 8.8 mg/dL (8.4-10.2); Carbon Dioxide 32 mmol/L (22-30); Chloride 100 mmol/L (98-107); Estimated CRCL calculation 38 ml/min; Estimated Glomerular Filt Rate 60; Glucose 114 mg/dL (65-110); Potassium 4.2 mmol/L (3.4-5.0); Sodium 139 mmol/L (137-145)
[2023-12-23 06:15] LABS: Iron 59 ug/dL (37-170)
[2023-12-23 06:22] LABS: Basophils Percent Auto 0.6 % (0.2-1.2); Eosinophils Absolute Auto 0.2 K/mm3 (0-0.3); Eosinophils Percent Auto 2.3 % (0-4.4); Hematocrit 33.3 % (37.0-47.0); Hemoglobin 9.9 g/dL (12.0-15.0); Immature Granulocyte Absolute 0.03 K/mm3 (0.00-0.031); Immature Granulocyte Percent A 0.4 % (0-0.5); Lymphocytes Absolute Auto 1.16 K/mm3 (0.9-3.2); Mean Corpuscular HGB Conc 29.7 g/dl (32-36); Mean Corpuscular Hemoglobin 29.3 pg (26-34); Mean Corpuscular Volume 98.5 fl (80-100); Mean Platelet Volume 10.3 fl (7.4-10.4); Monocytes Absolute Auto 0.8 K/mm3 (0.1-0.6); Monocytes Percent Auto 10.8 % (2.6-8.5); Neutrophils Absolute Auto 5.1 K/mm3 (1.3-6.7); Neutrophils Percent Auto 69.9 % (45.5-73.1); Platelet Count Result 166 k/mm3 (150-375); Red Blood Count 3.38 M/mm3 (4.2-5.4); Red Cell Distribution Width 15.9 % (11.5-14.5); White Blood Count 7.2 K/mm3 (4.5-10.0)
[2023-12-23 06:25] LABS: Percent Iron Saturation 19 % (20-50)
[2023-12-23] MEDS: ALBUTEROL SULFATE (*SP) AEROSOL 1 PUFF 2 PUFF INHALATION ×4 (07:05→17:39)
--- NOTE | 2023-12-23 07:39 | P.PNIM_ITS ---
Progress Note: A&P Assessment and Plan (1) Left renal mass: Code(s): N28.89 - Other specified disorders of kidney and ureter Status: Acute Assessment and Plan: (2) Bradycardia: Code(s): R00.1 - Bradycardia, unspecified Status: Acute (3) Acute respiratory failure: Qualifiers: Respiratory failure complication: hypoxia Qualified Code(s): J96.01 - Acute respiratory failure with hypoxia Code(s): J96.00 - Acute respiratory failure, unspecified whether with hypoxia or hypercapnia Status: Acute (4) Hyperkalemia: Code(s): E87.5 - Hyperkalemia Status: Acute (5) Presacral mass: Code(s): R19.09 - Other intra-abdominal and pelvic swelling, mass and lump Status: Acute (6) Acute kidney injury: Code(s): N17.9 - Acute kidney failure, unspecified Status: Acute (7) Anemia: Code(s): D64.9 - Anemia, unspecified Status: Acute Plan Acute respiratory failure CAP Acute respiratory failure, with hypoxia. May be more chronic but continuing levaquin for 1 more day since there was a possibility of pneumonia on initial x- ray.. TTE 10/01/23 LVEF >70%, left atrial enlargement. On 2L O2. Initial chest xray 12/18 with atelectasis vs pneumonia. Has been on Levaquin/Flagyl for proctocolitis since 12/19. . Repeat Chest xray 12/21 showed mild bibasilar interstitial disease vs COPD. No consolidation or effusion. Wean O2 for sats >90%, suspect she may need oxygen for discharge. Scheduled albuterol inhaler TID Oxygen evaluation in AM for home O2 --Continue levaquin through tomorrow (12/19-12/23) Initially was q48 dosing for mild ANGELINA. Anemia? B12 low, likely deficient--s/p 1000mcg IM and continue daily repletion. Follow up B12 with PCP. Check folate Iron panel only very mild iron deficiency, start oral iron, add MVI. Could take a MVI with iron instead of 325mg at discharge Poor PO intake?GI consulted, s/p EGD today --showed gastritis ANGELINA Hyperkalemia?Potassium elevated, 5.3 on admission, normalized with fluids and lokelma. Likely related to chronic NSAIDs. Mild ANGELINA. Creatinine 1.2, improved to 0.9 with fluids. --EKG Sinus carole, HR 54, stopped etodolac 12/19 --Started Lokelma BID, decreased to daily, stop today . --On D5@100/hr, stop --s/p albuterol inhaler, change scheduled nebs to PRN Presacral mass Constipation CT abd/pelvis 12/18 noted Stranding surrounding the rectum with increased density in the presacral space suspicious for a proctocolitis which could be infectious, inflammatory or ischemic etiology. Patient reports rectal pressure for several days, mildly increased pain, and no BM for several days. Started empiric levaquin/flagyl --GI consulted, s/p EGD/Flex sig today. Showed rectal prolapse, hemorrhoids. Rectal prolapse suspected etiology for CT abnormality/ Stop antibiotics --Started miralax -- bisacodyl suppository prn Left renal mass ?Interval increase in size of left renal mass, consistent with Bosniak 4 lesion.? Will await discussion with patient's son/POA to determine if the patient is interested in further follow-up. ?If so, will arrange outpatient evaluation and follow-up imaging --Urology consulted, recommended MRI 12/22 MRI Abdomen showed 1. 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 --Follow final urology recs Hypertension Blood pressu
[2023-12-23 08:23] LABS: Glucose Point of Care 107 mg/dl (65-105)
--- NOTE | 2023-12-23 08:54 | WPDUROPN2 ---
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 Patient was unsure regarding further follow-up and wished to discuss with her son. Spoke with patient's son/POA today. They are agreeable to proceed with MRI renal mass protocol and then will arrange appropriate outpatient follow-up based on results. Subjective Subjective Date/Time Seen: 12/23/23 08:54 Interval history: Constanza is asleep during my encounter today, resting comfortably. Review of Systems Review of Systems: ROS unobtainable: Yes other (Patient asleep) Exam Narrative: General: asleep, comfortable, no acute distress HEENT: Normocephalic, atraumatic Respiratory: Normal respiratory effort, no accessory muscle use Abdomen: Nondistended, soft, nontender Skin: Normal coloration, warm and dry Objective Data Vital Signs Vital Signs: Vital Signs - 24 hr 12/22/23 09:55 12/22/23 09:58 12/22/23 10:16 Temperature Pulse Rate 65 Respiratory Rate Blood Pressure Pulse Oximetry 83 L 92 Oxygen Delivery Room Air Nasal Cannula Oxygen Flow Rate 2 Fraction of Inspired Oxygen 21 28 12/22/23 12:16 12/22/23 14:00 12/22/23 14:43 Temperature 98.1 F Pulse Rate 64 59 L Respiratory Rate 18 16 Blood Pressure 107/81 Pulse Oximetry 99 Oxygen Delivery Nasal Cannula Oxygen Flow Rate 2 Fraction of Inspired Oxygen 12/22/23 15:32 12/22/23 12:00 12/22/23 16:00 Temperature Pulse Rate 61 60 49 L Respiratory Rate 18 Blood Pressure Pulse Oximetry Oxygen Delivery Oxygen Flow Rate Fraction of Inspired Oxygen 12/22/23 20:14 12/22/23 20:14 12/22/23 20:12 Temperature 97.5 F L Pulse Rate 63 63 64 Respiratory Rate 18 20 Blood Pressure 164/58 H Pulse Oximetry 98 95 Oxygen Delivery Nasal Cannula Oxygen Flow Rate 2 Fraction of Inspired Oxygen 12/22/23 20:33 12/22/23 20:00 12/22/23 20:00 Temperature Pulse Rate 64 75 Respiratory Rate Blood Pressure Pulse Oximetry 98 Oxygen Delivery Nasal Cannula Oxygen Flow Rate 2 Fraction of Inspired Oxygen 12/23/23 00:00 12/23/23 04:00 12/23/23 05:41 Temperature 97.6 F Pulse Rate 65 62 65 Respiratory Rate 20 Blood Pressure 153/69 H Pulse Oximetry 97 Oxygen Delivery Oxygen Flow Rate Fraction of Inspired Oxygen 12/23/23 07:05 12/23/23 07:05 Temperature Pulse Rate 69 69 Respiratory Rate 18 18 Blood Pressure Pulse Oximetry 96 Oxygen Delivery Nasal Cannula Oxygen Flow Rate 1.5 Fraction of Inspired Oxygen Intake/Output Intake/Output: Intake & Output 12/20/23 12/21/23 12/22/23 12/23/23 23:59 23:59 23:59 23:59 Intake Total 1360 1300 660 Output Total 600 440 450 Balance 760 860 210 Meds/Results Medications: Active Medications Generic Name Dose Route Start Last Admin Trade Name Freq PRN Reason Stop Dose Admin Acetaminophen 1,000 mg 12/20/23 01:13 12/22/23 10:21 Acetaminophen 500 Mg Tablet PO 1,000 mg Q6H PRN Administration pain 1-3 Albuterol 2 puff 12/20/23 01:13 12/21/23 01:51 Albuterol Sulfate (*Sp) Aerosol 1 Puff INHALATION 2 puff Q2HRT PRN Administration sob, wheezing Albuterol 2 puff 12/21/23 20:00 12/23/23 07:05 Albuterol Sulfate (*Sp) Aerosol 1 Puff INHALATION 2 puff QIDRT ROSEMARIE Administration Bisacodyl 10 mg 12/22/23 09:00 12/22/23 17:14 Bisacodyl 10 Mg Suppository RECTAL 12/23/23 18:00 Not Given BID ROSEMARIE Cyanocobalamin 1,000 mcg 12/24/23 09:00 Cyanocobalamin 1,000 Mcg Tablet PO QAM ROSEMARIE Dextrose 12.5 gm 12/20/23 07:36 Dextrose 50% 25 Gm/50 Ml Syringe IV PUSH PRN PRN Hypoglycemia Protocol Doxazosin Mesylate 8 mg 12/20/23 09:00 12/23/23 07:59 Doxazosin Mesylate 4 Mg Tabl
[2023-12-23] MEDS: CYANOCOBALAMIN INJ 1,000 MCG/ML VIAL 1000 MCG IM (09:29)
[2023-12-23] MEDS: SODIUM ZIRCONIUM CYCLOSILICATE 10 GM POWD.PACK PO (09:30)
[2023-12-23] MEDS: TOLNAFTATE 1% POWDER 45 GM BTL 1 APPLIC TOPICAL (09:30)
[2023-12-23] MEDS: BISACODYL 10 MG SUPPOSITORY RECTAL (09:30)
[2023-12-23] MEDS: LORazepam INJ (*CRX) 2 MG/ML VIAL 0.5 MG IV PUSH (11:22)
[2023-12-23 13:30] LABS: Glucose Point of Care 95 mg/dl (65-105)
[2023-12-23] MEDS: LACTATED RINGERS 1,000 ML 150 ML IV CONT (13:53)
[2023-12-23 13:59] LABS: Glucose Point of Care 92 mg/dl (65-105)
--- NOTE | 2023-12-23 14:36 | WPDANESEPPF ---
Anes - Initial Pre Proc Eval Procedure: Operation Date: 12/23/23 15:30 Proposed Procedures p Esophagogastroduodenoscopy & Colonoscopy - Johnny Lynch MD Date/Time: 12/23/23 14:36 Surgeon: Saritha Foster APRN Pre Op Diagnosis: Hyperkalemia/Renal Mass/Proctocolitis Patient Data Age: 83 Gender: F Height: 1.6 m Weight: 68.3 kg Last Vital Signs Temp 36.6 C 12/23/23 13:57 Pulse 64 12/23/23 13:57 Resp 20 12/23/23 13:57 BP 178/64 H 12/23/23 13:57 Pulse Ox 94 12/23/23 13:57 O2 Del Method Nasal Cannula 12/23/23 13:57 O2 Flow Rate 2 12/23/23 13:57 FiO2 28 12/22/23 09:58 Allergies Allergy/AdvReac Type Severity Reaction Status Date / Time Penicillins Allergy Severe HIVES Verified 12/23/23 13:56 hydrocodone AdvReac Severe SEVERE GI Verified 12/23/23 13:56 UPSET, N/V nitrofurantoin AdvReac Severe Swelling Verified 12/23/23 13:56 propoxyphene AdvReac Severe GI UPSET Verified 12/23/23 13:56 acetaminophen AdvReac Unknown Unknown Verified 12/23/23 13:56 [From Darvocet-N] adhesive tape AdvReac Unknown Unknown Verified 12/23/23 13:56 amlodipine AdvReac Unknown Unknown Verified 12/23/23 13:56 glimepiride AdvReac Unknown Unknown Verified 12/23/23 13:56 metformin AdvReac Unknown Unknown Verified 12/23/23 13:56 omeprazole [From Prilosec] AdvReac Unknown Unknown Verified 12/23/23 13:56 pioglitazone AdvReac Unknown Unknown Verified 12/23/23 13:56 simvastatin [From Zocor] AdvReac Unknown Unknown Verified 12/23/23 13:56 Home Medications Medication Instructions Recorded Confirmed Type acetaminophen 500 mg tablet 1,000 mg PO Q6H PRN pain 1-3 04/02/23 12/19/23 History (Tylenol Extra Strength) doxazosin 8 mg tablet 8 mg PO DAILY #90 tabs 07/12/23 12/19/23 Rx pantoprazole 40 mg tablet,delayed 40 mg PO QAM #90 tabs 08/08/23 12/19/23 Rx release pen needle, diabetic 31 gauge x #150 ea 08/08/23 12/19/23 Rx 09/07 blood-glucose meter,continuous #1 ea 09/01/23 12/19/23 Rx (FreeStyle Calixto 3 [place]) blood-glucose sensor (FreeStyle #4 ea 09/02/23 12/19/23 Rx Calixto 3 Sensor device) insulin aspart (niacinamide) 2 - 4 unit subcut [facility] 09/30/23 12/19/23 History (U-100) 100 unit/mL subcutaneous solution (Fiasp U-100 Insulin) insulin glargine 100 unit/mL (3 8 unit subcut HS 09/30/23 12/19/23 History mL) subcutaneous pen (Basaglar KwikPen U-100 Insulin) albuterol sulfate 90 mcg/actuation 2 puff inhalation Q2H PRN sob, 10/01/23 12/19/23 History aerosol inhaler (Ventolin HFA) wheezing ferrous sulfate 142 mg (45 mg 142 mg PO DAILY@0800 #30 tabs 10/06/23 12/19/23 Rx iron) tablet,extended release (Slow Release Iron) hydralazine 25 mg tablet See Rx Instructions .Route 11/30/23 12/19/23 Rx .COMPLEX #405 tabs cyanocobalamin (vitamin B-12) 1,000 mcg PO QAM #30 tabs 12/24/23 Rx 1,000 mcg tablet (Vitamin B-12) dextrose 40 % oral gel (Glutose-15) 15 g PO PRN PRN Hypoglycemia #90 12/24/23 Rx grams folic acid 1 mg tablet 1 mg PO DAILY #30 tabs 12/24/23 Rx hydrocortisone acetate 25 mg 25 mg RECTAL Q12HR #30 ea 12/24/23 Rx rectal suppository (Anusol-HC) metoprolol tartrate 25 mg tablet 75 mg PO Q12HR #30 tabs 12/24/23 Rx sucralfate 100 mg/mL oral 1,000 mg (10 mL) PO ACHS #300 mL 12/24/23 Rx suspension tolnaftate 1 % topical powder 1 applic topical Q12HR #100 grams 12/24/23 Rx Laboratory Tests 12/22/23 12/22/23 12/23/23 17:07 20:22 05:34 WBC RBC Hgb Hct MCV MCH MCHC RDW Plt Count MPV Immature Gran % (Auto) Neut % (Auto) Lymph % (Auto) [place] % (Auto) Eos % (Auto) Baso % (Auto) Lymph # (Auto) [place] # (Auto) Eos # (Auto) Baso # (Auto) Abs Immat Gran (auto) Absolute Neuts (auto)
--- NOTE | 2023-12-23 15:15 | PCOTNOTE ---
Patient out od the room at this time. Patient down having a procedure done, unavailable for today for therapy services.
--- NOTE | 2023-12-23 16:02 | SUR.OPER ---
EGD CLOSED 1557,COLONOSCOPY STARTED AT 1603
[2023-12-23 16:45] LABS: Glucose Point of Care 89 mg/dl (65-105)
[2023-12-23] MEDS: SUCRALFATE SUSP 100 MG/ML 10 ML UDC 1000 MG PO ×2 (17:07→20:16)
[2023-12-23] MEDS: hydrALAZINE HCL 25 MG TABLET BY MOUTH (17:07)
[2023-12-23] MEDS: ONDANSETRON INJ 4 MG/2 ML VIAL IV PUSH ×2 (18:55→20:14)
[2023-12-23] MEDS: METOPROLOL TARTRATE 25 MG TABLET 75 MG PO (20:12)
[2023-12-23 20:16] LABS: Glucose Point of Care 191 mg/dl (65-105)
[2023-12-23] MEDS: HYDROCORTISONE ACETATE 25 MG SUPPOSITORY RECTAL (20:16)
[2023-12-24] VITALS (10 sets, daily range): BP systolic 135–154; BP diastolic 52–68; PULSE 53–77; RESP 14–16; TEMP 35.7–36.4; O2SAT 84–99
[2023-12-24] MEDS: TOLNAFTATE 1% POWDER 45 GM BTL 1 APPLIC TOPICAL ×2 (00:25→08:26)
[2023-12-24] MEDS: ACETAMINOPHEN 500 MG TABLET 1000 MG PO (05:21)
[2023-12-24 06:23] LABS: Basophils Absolute Auto 0.1 K/mm3 (0.0-0.1); Basophils Percent Auto 0.8 % (0.2-1.2); Eosinophils Absolute Auto 0.2 K/mm3 (0-0.3); Eosinophils Percent Auto 2.8 % (0-4.4); Hematocrit 32.8 % (37.0-47.0); Hemoglobin 9.8 g/dL (12.0-15.0); Immature Granulocyte Absolute 0.04 K/mm3 (0.00-0.031); Immature Granulocyte Percent A 0.6 % (0-0.5); Lymphocytes Absolute Auto 0.86 K/mm3 (0.9-3.2); Lymphocytes Percent Auto 13.4 % (18.3-44.2); Mean Corpuscular HGB Conc 29.9 g/dl (32-36); Mean Corpuscular Hemoglobin 29.5 pg (26-34); Mean Corpuscular Volume 98.8 fl (80-100); Mean Platelet Volume 9.7 fl (7.4-10.4); Monocytes Absolute Auto 0.8 K/mm3 (0.1-0.6); Neutrophils Absolute Auto 4.5 K/mm3 (1.3-6.7); Neutrophils Percent Auto 70.4 % (45.5-73.1); Platelet Count Result 160 k/mm3 (150-375); Red Blood Count 3.32 M/mm3 (4.2-5.4); White Blood Count 6.4 K/mm3 (4.5-10.0)
[2023-12-24 06:31] LABS: INR 1.1; Prothrombin Time 14.6 Seconds (11.1-14.7)
[2023-12-24 06:38] LABS: Sodium 139 mmol/L (137-145)
[2023-12-24 06:39] LABS: Anion Gap 3 mmol/L (4-12); Blood Urea Nitrogen 13 mg/dL (7-17); Calcium 8.6 mg/dL (8.4-10.2); Carbon Dioxide 34 mmol/L (22-30); Chloride 102 mmol/L (98-107); Estimated CRCL calculation 48 ml/min; Estimated Glomerular Filt Rate > 60; Glucose 126 mg/dL (65-110)
[2023-12-24 07:04] LABS: Anisocytosis 1+; Platelet Estimate Slightly Decreased (Adequate); Schistocytes None Seen
[2023-12-24 08:04] LABS: Glucose Point of Care 113 mg/dl (65-105)
[2023-12-24] MEDS: SUCRALFATE SUSP 100 MG/ML 10 ML UDC 1000 MG PO ×2 (08:25→12:10)
[2023-12-24] MEDS: levoFLOXacin 750 MG TABLET PO (08:25)
[2023-12-24] MEDS: hydrALAZINE 12.5 MG TABLET 37.5 MG BY MOUTH ×2 (08:25→12:11)
[2023-12-24] MEDS: PANTOPRAZOLE 40 MG TABLET PO (08:25)
[2023-12-24] MEDS: DOXAZOSIN MESYLATE 4 MG TABLET 8 MG PO (08:25)
[2023-12-24] MEDS: FERROUS SULFATE 325 MG TABLET DR PO (08:26)
[2023-12-24] MEDS: THERAPEUTIC MULTIVITAMINS/MINERALS TAB (*BKC) 1 TABLET PO (08:26)
[2023-12-24] MEDS: CYANOCOBALAMIN 1,000 MCG TABLET 1000 MCG PO (08:26)
[2023-12-24] MEDS: METOPROLOL TARTRATE 25 MG TABLET 75 MG PO (08:26)
--- NOTE | 2023-12-24 09:17 | HOMEO2EVAL ---
Evaluation was performed at [facility] Home Oxygen Evaluation RC: Home Oxygen (O2) Evaluation Start: 12/24/23 00:24 Freq: ONCE Status: Active Protocol: RPE Activity Type Activity Date Activity User E-sign Co-sign Detail Recorded Client Recorded Date Recorded By Document 12/24/23 08:55 CLC [email or web address] 12/24/23 09:13 CLC Document 12/24/23 08:58 CLC [email or web address] 12/24/23 09:13 CLC Document 12/24/23 08:59 CLC [email or web address] 12/24/23 09:13 CLC Document 12/24/23 09:01 CLC [email or web address] 12/24/23 09:13 CLC Document 12/24/23 09:13 CLC [email or web address] 12/24/23 09:13 CLC 12/24/23 12/24/23 12/24/23 08:55 08:58 08:59 Home O2 Evaluation [Oxygen] -Test Phase Resting Exercise Exercise -Oxygen Delivery Room Air Room Air Nasal Cannula -Oxygen Flow Rate (L/min) 1 [Pulse Oximetry] -Pulse Oximetry (90-100 %) 94 84 L 85 L [Pulse Rate] -Pulse Rate (60-100 beats/min) 66 73 77 [Evaluation] -Activity Tolerance Good [Exercise] -Ambulation Distance (feet) 100 -Ambulation Distance (meters) 30.47 [Charges] -Evaluation Charges O2 Evaluation by 12/24/23 12/24/23 09:01 09:13 Home O2 Evaluation [Oxygen] -Test Phase Exercise Exercise -Oxygen Delivery Nasal Cannula Nasal Cannula -Oxygen Flow Rate (L/min) 2 3 [Pulse Oximetry] -Pulse Oximetry (90-100 %) 87 L 93 [Pulse Rate] -Pulse Rate (60-100 beats/min) 73 76 [Evaluation] -Activity Tolerance [Exercise] -Ambulation Distance (feet) -Ambulation Distance (meters) [Charges] -Evaluation Charges
--- NOTE | 2023-12-24 09:17 | PCRCNOTE ---
Home o2 evaluation complete. Patient requires no oxygen at rest and 3 liters per minute with activity.
--- NOTE | 2023-12-24 11:00 | PM.DS ---
DS: Admitting Diagnosis Discharge Date 12/24/2023 Admitting Diagnosis dehydration and weakness with ANGELINA DS: Discharge Diagnosis Discharge Diagnosis (1) Left renal mass: Code(s): N28.89 - Other specified disorders of kidney and ureter Status: Acute Assessment and Plan: (2) Bradycardia: Code(s): R00.1 - Bradycardia, unspecified Status: Acute (3) Acute respiratory failure: Qualifiers: Respiratory failure complication: hypoxia Qualified Code(s): J96.01 - Acute respiratory failure with hypoxia Code(s): J96.00 - Acute respiratory failure, unspecified whether with hypoxia or hypercapnia Status: Acute (4) Hyperkalemia: Code(s): E87.5 - Hyperkalemia Status: Acute (5) Presacral mass: Code(s): R19.09 - Other intra-abdominal and pelvic swelling, mass and lump Status: Acute (6) Acute kidney injury: Code(s): N17.9 - Acute kidney failure, unspecified Status: Acute (7) Anemia: Code(s): D64.9 - Anemia, unspecified Status: Acute Plan Acute respiratory failure CAP Acute respiratory failure, with hypoxia. May be more chronic but continuing levaquin for 1 more day since there was a possibility of pneumonia on initial x-ray.. TTE 10/01/23 LVEF >70%, left atrial enlargement. On 2L O2. Initial chest xray 12/18 with atelectasis vs pneumonia. Has been on Levaquin/Flagyl for proctocolitis since 12/19. . Repeat Chest xray 12/21 showed mild bibasilar interstitial disease vs COPD. No consolidation or effusion. Wean O2 for sats >90%, suspect she may need oxygen for discharge. Scheduled albuterol inhaler TID Oxygen evaluation in AM for home O2 --Continue levaquin through tomorrow (12/19-12/23) Initially was q48 dosing for mild ANGELINA. Anemia? B12 low, likely deficient--s/p 1000mcg IM and continue daily repletion. Follow up B12 with PCP. Check folate Iron panel only very mild iron deficiency, start oral iron, add MVI. Could take a MVI with iron instead of 325mg at discharge Poor PO intake?GI consulted, s/p EGD today --showed gastritis ANGELINA Hyperkalemia?Potassium elevated, 5.3 on admission, normalized with fluids and lokelma. Likely related to chronic NSAIDs. Mild ANGELINA. Creatinine 1.2, improved to 0.9 with fluids. --EKG Sinus carole, HR 54, stopped etodolac 12/19 --Started Lokelma BID, decreased to daily, stop today . --On D5@100/hr, stop --s/p albuterol inhaler, change scheduled nebs to PRN Presacral mass Constipation CT abd/pelvis 12/18 noted Stranding surrounding the rectum with increased density in the presacral space suspicious for a proctocolitis which could be infectious, inflammatory or ischemic etiology. Patient reports rectal pressure for several days, mildly increased pain, and no BM for several days. Started empiric levaquin/flagyl --GI consulted, s/p EGD/Flex sig today. Showed rectal prolapse, hemorrhoids. Rectal prolapse suspected etiology for CT abnormality/ Stop antibiotics --Started miralax -- bisacodyl suppository prn Left renal mass ?Interval increase in size of left renal mass, consistent with Bosniak 4 lesion.? Will await discussion with patient's son/POA to determine if the patient is interested in further follow-up. ?If so, will arrange outpatient evaluation and follow-up imaging --Urology consulted, recommended MRI 12/22 MRI Abdomen showed 1. 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 --Follow final urology recs Hypertension Blood pressure 153/69 this morning --Restarted hydralazine 12.5 TID, increase dose to 25 TID 12/22 --Continue home metoprolol, but decreased dose for bradycardia Bradycardia?asymptomatic --Decreased metoprolol from 125 BID to 75 BID ?continue to titrate as n
[2023-12-24 11:51] LABS: Glucose Point of Care 304 mg/dl (65-105)
[2023-12-24] MEDS: HYDROCORTISONE ACETATE 25 MG SUPPOSITORY RECTAL (12:10)
[2023-12-24] MEDS: INSULIN ASPART (*BKC) 100 UNITS/ML SUB-Q (12:10)
[2023-12-28 00:14] LABS: Red Blood Cell Folate 645 ng/mL RBC (>280)
== END 2023-12-24 13:50 | disposition home or self-care (01) | DRG 682 ==
LOC: ANHED 19:08 → ANH2MED 12-20 07:09
PROVIDERS: Internal Medicine Gastroenterology; Nurse Practitioner Family; Physician Assistant; Admitting Provider Internal Medicine; Emergency Provider Student in an Organized Health Care Education/Training Program; PCP Family Medicine Adolescent Medicine; Visit Provider Nurse Practitioner Acute Care
PROC: 0DJ08ZZ Inspection of Upper Intestinal Tract, Via Natural or Artificial Opening Endoscopic (ICD-10-PCS; CPT 43235; principal; 2023-12-23 15:30)
DX: N17.9 Acute kidney failure, unspecified (principal); J18.9 Pneumonia, unspecified organism; J96.01 Acute respiratory failure with hypoxia; I48.20 Chronic atrial fibrillation, unspecified; I50.22 Chronic systolic (congestive) heart failure; I11.0 Hypertensive heart disease with heart failure; I70.0 Atherosclerosis of aorta; E87.5 Hyperkalemia; E86.0 Dehydration; E11.9 Type 2 diabetes mellitus without complications; E78.1 Pure hyperglyceridemia; E53.8 Deficiency of other specified B group vitamins; N28.89 Other specified disorders of kidney and ureter; R00.1 Bradycardia, unspecified; T44.7X5A Adverse effect of beta-adrenoreceptor antagonists, initial encounter; K29.70 Gastritis, unspecified, without bleeding; K59.00 Constipation, unspecified; K62.3 Rectal prolapse; K57.30 Diverticulosis of large intestine without perforation or abscess without bleeding; K76.0 Fatty (change of) liver, not elsewhere classified; K21.9 Gastro-esophageal reflux disease without esophagitis; D64.9 Anemia, unspecified; J45.909 Unspecified asthma, uncomplicated; M10.9 Gout, unspecified; M81.0 Age-related osteoporosis without current pathological fracture; H35.3112 Nonexudative age-related macular degeneration, right eye, intermediate dry stage; N32.81 Overactive bladder; Z79.01 Long term (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 of anticoagulants; Z79.4 Long term (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 of insulin; Z87.891 Personal history of nicotine dependence
CPT/HCPCS: 36415; 71046; 73502; 74177; 74183; 80048; 80053; 81003; 82607; 82728; 82747; 82948; 83540; 83550; 83605; 83690; 84132; 84484; 85025; 85610; 85652; 86140; 88305; 93005; 94618; 94640; 96365; 96375; 97110; 97161; 97165; 97530; 99285; A9270; A9577; J0696; J1650; J1815; J1836; J1956; J2001; J2060; J2405; J2704; J3420; J7120; Q9967

== ENCOUNTER 2024-01-04 08:41 | Inpatient (IN) | payer MEDICARE, SELFPAY ==
[2024-01-04] VITALS (11 sets, daily range): BP systolic 153–187; BP diastolic 55–94; PULSE 67–84; RESP 16–28; TEMP 36.4–37.1; O2SAT 94–100; BMI 28.0
--- NOTE | ~2024-01-04 | XR_ITS ---
EXAMINATION: XR chest 2V DATE: 01/04/2024 09:55 INDICATION: Dyspnea TECHNIQUE: frontal and lateral views of the chest were obtained. COMPARISON: Chest radiograph dated 12/22/2023 FINDINGS: Increased interstitial pattern with some peripheral Kayla B-lines at the bilateral mid and lower smita g zones consistent with mild pulmonary edema with differential including pneumonia. Persistent very s mall bilateral pleural effusions with blunting at the posterior sulci. Cardiomegaly. IMPRESSION: 1. Likely congestive heart failure with cardiomegaly, mild pulmonary edema and there are small bilate ral pleural effusions. Differential would include less likely pneumonia. Reviewed, dictated and finalized at location B. IMPRESSION: 1. Likely congestive heart failure with cardiomegaly, mild pulmonary edema and there are small bilateral pleural effusions. Differential would include less li urvashi pneumonia.
--- NOTE | 2024-01-04 08:55 | ECG_ITS ---
Test Date: 2024-01-04 08:58:49 Measurements Intervals [place] Rate: 73 P: 42 MT: 140 QRS: -3 QRSD: 80 T: 34 QT: 356 QTc: 395 Interpretive Statements SINUS RHYTHM WITH OCCASIONAL VENTRICULAR PREMATURE COMPLEXES BORDERLINE R WAVE PROGRESSION, ANTERIOR LEADS BASELINE ARTIFACT- I, II, III, AVR, AVL, AVF, V4-V6 BORDERLINE ECG Compared to ECG 12/21/2023 14:33:26 HEART RATE HAS INCREASED Electronically Signed On 01-04-2024 09:26:52 CDT by Tobi Jenkins D.O.
--- NOTE | 2024-01-04 09:48 | ED.SOB ---
HPI - SOB/Dyspnea General Chief Complaint: Shortness of Breath/Dyspnea <India Mar PA-C - Last Filed: 01/04/24 15:43> Stated Complaint: SOB <SURINDER Duckworth Last Filed: 01/04/24 15:43> Time Seen by Provider: 01/04/24 09:12 <SURINDER Duckworth Last Filed: 01/04/24 15:43> Source: patient and family <SURINDER Duckworth Last Filed: 01/04/24 15:43> Mode of arrival: ambulatory <SURINDER Duckworth Last Filed: 01/04/24 15:43> Limitations: other (son reports some memory issues) <SURINDER Duckworth Last Filed: 01/04/24 15:43> History of Present Illness HPI Narrative: This is a 83 year old female that presents to the ER for shortness of breath. History obtained via her son. Ongoing over the last week. Reports after her last admission she was discharged with home oxygen. Initially shortness of breath seemed to be relieved with Albuterol. She has continued to have worsening shortness of breath as well as weight gain and lower extremity swelling. Reports a chronic cough. Denies fevers. <SURINDER Duckworth Last Filed: 01/04/24 15:43> Related Data Home Medications: Home Medications Medication Instructions Recorded Confirmed acetaminophen 500 mg tablet 1,000 mg PO Q6H PRN pain 1-3 04/02/23 01/04/24 (Tylenol Extra Strength) insulin aspart (niacinamide) 2 - 4 unit subcut [facility]HS 09/30/23 01/04/24 (U-100) 100 unit/mL subcutaneous solution (Fiasp U-100 Insulin) insulin glargine 100 unit/mL (3 8 unit subcut HS 09/30/23 01/04/24 mL) subcutaneous pen (Basaglar KwikPen U-100 Insulin) albuterol sulfate 90 mcg/actuation 2 puff inhalation Q2H PRN sob, 10/01/23 01/04/24 aerosol inhaler (Ventolin HFA) wheezing <SURINDER Duckworth Last Filed: 01/04/24 15:43> Allergies/Adverse Reactions: Allergies Allergy/AdvReac Type Severity Reaction Status Date / Time Penicillins Allergy Severe HIVES Verified 12/23/23 13:56 hydrocodone AdvReac Severe SEVERE GI Verified 12/23/23 13:56 UPSET, N/V nitrofurantoin AdvReac Severe Swelling Verified 12/23/23 13:56 propoxyphene AdvReac Severe GI UPSET Verified 12/23/23 13:56 acetaminophen AdvReac Unknown Unknown Verified 12/23/23 13:56 [From Darvocet-N] adhesive tape AdvReac Unknown Unknown Verified 12/23/23 13:56 amlodipine AdvReac Unknown Unknown Verified 12/23/23 13:56 glimepiride AdvReac Unknown Unknown Verified 12/23/23 13:56 metformin AdvReac Unknown Unknown Verified 12/23/23 13:56 omeprazole [From Prilosec] AdvReac Unknown Unknown Verified 12/23/23 13:56 pioglitazone AdvReac Unknown Unknown Verified 12/23/23 13:56 simvastatin [From Zocor] AdvReac Unknown Unknown Verified 12/23/23 13:56 <India Mar PA-C - Last Filed: 01/04/24 15:43> Review of Systems Review of Systems: CONSTITUTIONAL: Denies fever CARDIOVASCULAR: Reports edema. Denies chest pain RESPIRATORY: Reports cough and dyspnea. <India Mar PA-C - Last Filed: 01/04/24 15:43> All systems reviewed & are unremarkable except as noted in HPI and below <India Mar PA-C - Last Filed: 01/04/24 15:43> COUNTS INCLUDE 234 BEDS AT THE [facility] Past Medical History Medical History: Medical History Acquired hypertriglyceridemia Age related osteoporosis Aortic atherosclerosis Asthma Atrial fibrillation B12 deficiency Chronic anticoagulation Chronic systolic (congestive) heart failure Gastroesophageal reflux disease GERD (gastroesophageal reflux disease) Gout Hepatic steatosis Hypertension Insulin dependent type 2 diabetes mellitus Macular degeneration Nonexudative age-related macular degeneration, right eye, intermediate dry stage Overactive bladder <SURINDER Duckworth Last Filed: 01/04/24 15:43> Surgical History Surgical History: Surgical History History of cholecystectomy History of repair of rotator cuff <Em
[2024-01-04 09:51] LABS: Basophils Percent Auto 0.7 % (0.2-1.2); Eosinophils Absolute Auto 0.1 K/mm3 (0-0.3); Eosinophils Percent Auto 1.5 % (0-4.4); Hematocrit 31.8 % (37.0-47.0); Hemoglobin 9.3 g/dL (12.0-15.0); Immature Granulocyte Absolute 0.02 K/mm3 (0.00-0.031); Immature Granulocyte Percent A 0.3 % (0-0.5); Lymphocytes Absolute Auto 0.71 K/mm3 (0.9-3.2); Lymphocytes Percent Auto 11.6 % (18.3-44.2); Mean Corpuscular HGB Conc 29.2 g/dl (32-36); Mean Corpuscular Volume 102.6 fl (80-100); Mean Platelet Volume 10.3 fl (7.4-10.4); Monocytes Absolute Auto 0.5 K/mm3 (0.1-0.6); Monocytes Percent Auto 8.6 % (2.6-8.5); Neutrophils Absolute Auto 4.8 K/mm3 (1.3-6.7); Neutrophils Percent Auto 77.3 % (45.5-73.1); Platelet Count Result 206 k/mm3 (150-375); Red Cell Distribution Width 15.2 % (11.5-14.5); White Blood Count 6.1 K/mm3 (4.5-10.0)
[2024-01-04 09:57] LABS: Prothrombin Time 13.9 Seconds (11.1-14.7)
[2024-01-04 09:58] LABS: Partial Thromboplastin Time 30.4 Seconds (22.3-36.8)
[2024-01-04 10:02] LABS: Alanine Aminotransferase 17 U/L (6-35); Albumin Level 3.5 g/dL (3.5-5.1); Alkaline Phosphatase 74 U/L (38-126); Aspartate Amino Transferase 22 U/L (14-36); Bilirubin,Total 0.9 mg/dL (0.2-1.3); Blood Urea Nitrogen 25 mg/dL (7-17); Carbon Dioxide > 40 mmol/L (22-30); Chloride 98 mmol/L (98-107); Estimated CRCL calculation 46 ml/min; Estimated Glomerular Filt Rate > 60; Glucose 163 mg/dL (65-110); Potassium 4.2 mmol/L (3.4-5.0); Sodium 143 mmol/L (137-145)
[2024-01-04 10:09] LABS: NT Pro B Type Natriuretic Pept 4460 pg/mL (19.9-100); Troponin I < 0.012 ng/mL (0.000-0.034)
[2024-01-04 10:24] LABS: Hypochromasia 1+; Platelet Estimate Adequate (Adequate); Schistocytes None Seen
[2024-01-04] MEDS: FUROSEMIDE INJ 40 MG/4 ML VIAL IV PUSH (10:50)
--- NOTE | 2024-01-04 15:19 | PM.IMHP ---
H&P: HPI History of Present Illness Date/Time: 01/04/24 15:19 Chief Complaint: Shortness of Breath Narrative: 83 y/o F presents here with shortness of breath with PMH of asthma, AFib, CHF, diabetes, and hypertension. The patient presents here from home via EMS for further evaluation of shortness of breath. She reports onset of SOB approximately 1 week ago. Shortness of breath worsens with exertion. She reports partial relief with albuterol inhaler. Shortness of breath is accompanied by chronic dry cough, weight gain (141 -> 153 lbw), and bilateral lower extremity edema. Patient denies fever, chills, body aches.Patient was admitted at [facility] from 12/19/2023 - 12/24/2023 for evaluation abdominal pain, nausea, and decreased p.o. intake. Initial findings concerning for proctitis, started on antibiotics and GI consulted. However colonoscopy showed rectal prolapse, ABX were discontinued. Patient also hypoxic, initial concern on CXR for pneumonia. Echo showed EF of greater than 70% with left atrial enlargement. Patient was discharged home with supplemental O2. Denies hx of tobacco use. Initial VS at presentation: 97.6? F, HR 72, RR 28, 197/82, and 94% on 4L NC. ED workup showed: No leukocytosis, hemoglobin 9.3 (at baseline), CO2 greater than 40, creatinine 0.7 and normal GFR, initial troponin negative, and BNP 4460. CXR showed likely CHF with cardiomegaly, mild pulmonary edema, and there are small bilateral pleural effusions. Review of Systems Review of Systems: All systems reviewed & are unremarkable except as noted in HPI and below (Limited, history of dementia) [facility] Past Medical History Medical History Acquired hypertriglyceridemia Age related osteoporosis Aortic atherosclerosis Asthma Atrial fibrillation B12 deficiency Chronic anticoagulation Chronic systolic (congestive) heart failure Gastroesophageal reflux disease GERD (gastroesophageal reflux disease) Gout Hepatic steatosis Hypertension Insulin dependent type 2 diabetes mellitus Macular degeneration Nonexudative age-related macular degeneration, right eye, intermediate dry stage Overactive bladder Surgical History Surgical History History of cholecystectomy History of repair of rotator cuff Family History Family History Father Asthma Cerebrovascular accident Family history of diabetes mellitus in first degree relative Sibling Family history of diabetes mellitus in first degree relative Family history of malignant neoplasm of urinary bladder Mother Family history of heart disease in male family member before age 55 Other Family history of arthritis Hypertension Social History Social History Social History: Surrogate medical decision maker: Julio Ventura, son. Code status: Full code. Smoking packs per day: 1 Smoking cigarettes per day: 20.0 Years smoked: 15 Smoking pack-years: 15.00 Smoking status: Never smoker Second hand tobacco smoke exposure: Yes Alcohol intake: never Substance use: never Substance use type: does not use Do You Feel Safe in your Home?: Yes Lack of Transportation: YES Lack of Food: Never True Current Housing: I Have Housing Concerned About Future Housing: No Difficulty Paying Gas/Electric Bills: No Difficulty Paying for Meds: No Currently Unemployed: No Education: Decline to Answer Difficulty w/ Childcare or Family Care: No Living arrangements: with family Additional living arrangements comments: Lives in [place]. Son Julio stays with her. Occupation/Education: retired Spiritual care concerns: No Meds Home Medications and Allergies Home Medications Medication Instructions Recorded Confirmed Type acetaminophen 500 mg ta
--- NOTE | 2024-01-04 16:00 | PC.NURSE ---
This patient, Constanza Ventura, was admitted to [facility] Surg Room 323-01. Patient/family oriented to hospital policies and general routines including ID bracelet, bed and alarms, visiting hours, pain management, procedures, bathroom and other care routines, personal items, smoking policy, room service/diet, and visiting hours. Information on how to activate the Rapid Response Team has been discussed. Patient/Family are encouraged to report perceived risks to care and to ask questions if they do not understand what they are told or what they should do.
[2024-01-05] VITALS (20 sets, daily range): BP systolic 124–188; BP diastolic 59–74; PULSE 69–89; RESP 18–20; TEMP 36.9–37.1; O2SAT 93–97
[2024-01-05] MEDS: IPRATROPIUM 0.5 MG/ALBUTEROL SULFATE 2.5 MG AMPUL.NEB 3 ML INHALATION ×3 (02:36→20:14)
--- NOTE | 2024-01-05 05:22 | PC.NURSE ---
Informed Dr. Sood of Pt's increased blood pressure of 188/74. Other staff members state that Pt's blood pressure has been elevated in previous visits in the morning as that is when she gets her blood pressure medications. Pt. has normally received her Hydralazine early in the morning when her blood pressure is elevated. Dr. Sood states to give both doses of Hydralazine (25 mg and 12.5 mg) at this time. Verbal order repeated back to Dr. Sood for verification.
[2024-01-05] MEDS: hydrALAZINE 12.5 MG TABLET PO ×3 (05:40→17:11)
[2024-01-05] MEDS: hydrALAZINE HCL 25 MG TABLET PO ×3 (05:40→17:11)
[2024-01-05] MEDS: SUCRALFATE SUSP 100 MG/ML 10 ML UDC 1000 MG PO ×4 (05:41→20:58)
[2024-01-05 06:30] LABS: Basophils Percent Auto 0.5 % (0.2-1.2); Eosinophils Absolute Auto 0.1 K/mm3 (0-0.3); Eosinophils Percent Auto 1.6 % (0-4.4); Hematocrit 31.3 % (37.0-47.0); Hemoglobin 9.1 g/dL (12.0-15.0); Immature Granulocyte Absolute 0.03 K/mm3 (0.00-0.031); Immature Granulocyte Percent A 0.5 % (0-0.5); Lymphocytes Absolute Auto 0.57 K/mm3 (0.9-3.2); Lymphocytes Percent Auto 9.8 % (18.3-44.2); Mean Corpuscular HGB Conc 29.1 g/dl (32-36); Mean Corpuscular Hemoglobin 29.8 pg (26-34); Mean Corpuscular Volume 102.6 fl (80-100); Mean Platelet Volume 10.2 fl (7.4-10.4); Monocytes Absolute Auto 0.6 K/mm3 (0.1-0.6); Neutrophils Absolute Auto 4.4 K/mm3 (1.3-6.7); Neutrophils Percent Auto 76.6 % (45.5-73.1); Platelet Count Result 191 k/mm3 (150-375); Red Blood Count 3.05 M/mm3 (4.2-5.4); Red Cell Distribution Width 15.1 % (11.5-14.5); White Blood Count 5.8 K/mm3 (4.5-10.0)
[2024-01-05 06:42] LABS: Alanine Aminotransferase 15 U/L (6-35); Albumin Level 3.4 g/dL (3.5-5.1); Alkaline Phosphatase 69 U/L (38-126); Aspartate Amino Transferase 19 U/L (14-36); Bilirubin,Total 1.3 mg/dL (0.2-1.3); Blood Urea Nitrogen 20 mg/dL (7-17); Carbon Dioxide > 40 mmol/L (22-30); Chloride 93 mmol/L (98-107); Estimated CRCL calculation 54 ml/min; Estimated Glomerular Filt Rate > 60; Glucose 182 mg/dL (65-110); Potassium 4.1 mmol/L (3.4-5.0); Sodium 142 mmol/L (137-145)
[2024-01-05 07:19] LABS: Anisocytosis 1+; Hypochromasia 1+; Macrocytosis 1+ (NORMAL); Platelet Estimate Adequate (Adequate); Schistocytes None Seen
[2024-01-05 07:37] LABS: Glucose Point of Care 197 mg/dl (65-105)
[2024-01-05] MEDS: FAMOTIDINE 20 MG TABLET PO ×2 (08:41→20:58)
[2024-01-05] MEDS: DOXAZOSIN MESYLATE 4 MG TABLET 8 MG PO (08:43)
[2024-01-05] MEDS: CYANOCOBALAMIN 1,000 MCG TABLET 1000 MCG PO (08:43)
[2024-01-05] MEDS: predniSONE 20 MG TABLET 40 MG PO (08:43)
[2024-01-05] MEDS: TOLNAFTATE 1% POWDER 45 GM BTL 1 APPLIC TOPICAL ×2 (08:44→20:58)
[2024-01-05] MEDS: HYDROCORTISONE ACETATE 25 MG SUPPOSITORY RECTAL ×2 (08:44→20:58)
[2024-01-05] MEDS: FOLIC ACID 1 MG TABLET PO (08:44)
[2024-01-05] MEDS: PANTOPRAZOLE 40 MG TABLET PO (08:44)
[2024-01-05 08:46] LABS: Hemoglobin A1C 7.4 % (<5.7)
[2024-01-05] MEDS: METOPROLOL TARTRATE 25 MG TABLET 75 MG PO ×2 (08:46→20:57)
[2024-01-05] MEDS: FUROSEMIDE INJ 40 MG/4 ML VIAL IV PUSH ×2 (08:46→17:11)
--- NOTE | 2024-01-05 09:54 | PM.CNCAR ---
Assessment and Plan Assessment and plan (1) Acute on chronic heart failure with preserved ejection fraction (HFpEF): Code(s): I50.33 - Acute on chronic diastolic (congestive) heart failure Status: Acute Assessment and Plan: Likely due to her Lasix being discontinued last admission. Continue IV Lasix, will increase to BID. Please monitor strict I/Os. Will also restart Spironolactone at 25mg once daily. (2) Hypertension: Qualifiers: Hypertension type: unspecified Qualified Code(s): I10 - Essential (primary) hypertension Code(s): I10 - Essential (primary) hypertension Status: Chronic Assessment and Plan: Elevated. Continue Metoprolol, Hydralazine, Lasix, Spironolactone (3) Paroxysmal atrial fibrillation: Code(s): I48.0 - Paroxysmal atrial fibrillation Status: Acute Assessment and Plan: In sinus. Continue Metoprolol. Not on anticoagulation due to significant anemia in the past requiring blood transfusions. History of Present Illness History of Present Illness Consult date/time: 01/05/24 09:54 Requesting physician: Nathalia Leone APRN Consult reason: congestive heart failure Reason For Visit: chf exacerbation Narrative: We are consulted for CHF. This is an 83 year old female with heart failure with preserved LVEF, paroxysmal atrial fibrillation, hypertension. Patient was recently discharged from [facility] on 12/23 after being admitted with acute respiratory failure, pneumonia, dehydration, gastritis. Patient presented to [place] for shortness of breath, lower extremity edema, weight gain. Ongoing for the past week. She had episode of vomiting this morning. According to the discharge summary from last admission, her Spironolactone, Lisinopril, Lasix was discontinued. Workup this admission shows: NT pro BNP of 4460 CXR: Likely congestive heart failure with cardiomegaly, mild pulmonary edema and there are small bilateral pleural effusions. Differential would include less likely pneumonia. EKG with sinus rhythm with occasional PVC Echocardiogram from 10/01/2023: 1. Complete two-dimensional, color flow and Doppler transthoracic echocardiogram is performed. 2. Mild concentric LVH with hyperdynamic systolic function. 3. Left atrial enlarged. 4. Sclerotic but not significantly stenotic aortic valve. 5. Sinus rhythm. Review of Systems Review of Systems: All systems reviewed & are unremarkable except as noted in HPI and below (HPI) PMFSH Past Medical History Medical History Acquired hypertriglyceridemia Age related osteoporosis Aortic atherosclerosis Asthma Atrial fibrillation B12 deficiency Chronic anticoagulation Chronic systolic (congestive) heart failure Gastroesophageal reflux disease GERD (gastroesophageal reflux disease) Gout Hepatic steatosis Hypertension Insulin dependent type 2 diabetes mellitus Macular degeneration Nonexudative age-related macular degeneration, right eye, intermediate dry stage Overactive bladder Surgical History Surgical History History of cholecystectomy History of repair of rotator cuff Family History Family History Father Asthma Cerebrovascular accident Family history of diabetes mellitus in first degree relative Sibling Family history of diabetes mellitus in first degree relative Family history of malignant neoplasm of urinary bladder Mother Family history of heart disease in male family member before age 55 Other Family history of arthritis Hypertension Social History Social History Social History: Surrogate medical decision maker: Julio Ventura, son. Code status: Full code. Smoking packs per day: 1 Smoking cigarettes per day: 20.0 Years smoked: 15 Smoking pack-years: 15.0
[2024-01-05] MEDS: SPIRONOLACTONE 25 MG TABLET PO (11:05)
[2024-01-05] MEDS: INSULIN ASPART (*BKC) 100 UNITS/ML SUB-Q ×3 (12:03→21:01)
--- NOTE | 2024-01-05 15:56 | PM.IMPN ---
Progress Note: A&P Assessment and Plan (1) Acute respiratory failure: Qualifiers: Respiratory failure complication: hypoxia Qualified Code(s): J96.01 - Acute respiratory failure with hypoxia Code(s): J96.00 - Acute respiratory failure, unspecified whether with hypoxia or hypercapnia Status: Acute Assessment and Plan: - CXR, 01/04/24: 1. Likely congestive heart failure with cardiomegaly, mild pulmonary edema and there are small bilateral pleural effusions. Differential would include less likely pneumonia. - CXR, 12/22/2023: 1. COPD and/or bibasilar chronic interstitial disease. - discharged with supplemental O2 on 12/24/2023. currently requiring 4L NC - start duonebs esteban and prednisone x5 days (COPD seen on CXR, no hx of smoking) - DDX: asthma/COPD versus CHF exacerbation versus chronic interstitial lung disease verses pneumonia, or combination there of. Suspect more likely combination of asthma/COPD and CHF. No systemic symptoms or leukocytosis consistent with pneumonia presentation. Continue to trend white count. If no improvement with diuretics and scheduled nebulizers, consider CT chest non con. (2) CHF exacerbation: Qualifiers: Heart failure type: combined systolic and diastolic Qualified Code(s): I50.43 - Acute on chronic combined systolic (congestive) and diastolic (congestive) heart failure Code(s): I50.9 - Heart failure, unspecified Status: Suspected Assessment and Plan: - BNP 4460 - most recent echo (10/01/2023): Mild concentric LVH with hyperdynamic systolic function, left atrial enlargement, estimated EF >70%, and grade 1 diastolic dysfunction -Continue IV Lasix, will increase to BID. -Please monitor strict I/Os. -Restart Spironolactone at 25mg once daily. 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 Patient was unsure regarding further follow-up and wished to discuss with her son. Spoke with patient's son/POA today. They are agreeable to proceed with MRI renal mass protocol and then will arrange appropriate outpatient follow-up based on results. Plan Diet: Heart healthy GI Prophylaxis: Not currently indicated DVT Prophylaxis: Lines: Peripheral Code Status: Full code Subjective Date/time seen: 01/05/24 15:56 Interval history: Patient was evaluated with her son by aside. Son reports she has medical transactional attorney for her medical decision. Patient recently gained 8 lbs after the recent discharge from [facility] which he says attributed due to fluid overload. Patient was discontinued on Lasix during last discharge due to interval increase in size of left renal mass, consistent with Bosniak 4 lesion. Review of Systems Review of Systems: All systems reviewed & are unremarkable except as noted in HPI and below (Limited, history of dementia) Exam Narrative: A/Ox3-4, poor situational recall. faint e
[2024-01-05 16:36] LABS: Glucose Point of Care 254 mg/dl (65-105)
[2024-01-05 20:10] LABS: Glucose Point of Care 308 mg/dl (65-105)
[2024-01-05] MEDS: INSULIN GLARGINE (*BKC) 100 UNITS/ML 8 UNITS SUB-Q (20:59)
[2024-01-05] MEDS: guaiFENesin/DEXTROMETHORPHAN 10 ML UDC 5 ML PO (21:35)
[2024-01-06] VITALS (17 sets, daily range): BP systolic 134–153; BP diastolic 52–82; PULSE 60–85; RESP 16–22; TEMP 36.7–37.2; O2SAT 94–97
[2024-01-06] MEDS: IPRATROPIUM 0.5 MG/ALBUTEROL SULFATE 2.5 MG AMPUL.NEB 3 ML INHALATION ×4 (02:05→22:19)
[2024-01-06 08:24] LABS: Glucose Point of Care 155 mg/dl (65-105)
--- NOTE | 2024-01-06 08:49 | PM.PNCARD ---
Progress Note: A&P Assessment and Plan (1) Acute on chronic heart failure with preserved ejection fraction (HFpEF): Code(s): I50.33 - Acute on chronic diastolic (congestive) heart failure Status: Acute Assessment and Plan: Likely due to her Lasix being discontinued last admission. Continue IV Lasix BID for today, perhaps shift to p.o. tomorrow. Please monitor strict I/Os. Will also restart Spironolactone at 25mg once daily. (2) Hypertension: Qualifiers: Hypertension type: unspecified Qualified Code(s): I10 - Essential (primary) hypertension Code(s): I10 - Essential (primary) hypertension Status: Chronic Assessment and Plan: Improving but remains above goal. Continue Metoprolol, Hydralazine, Lasix, Spironolactone. When she id finished diuresing can consider adding Entresto for blood pressure control and HFpEF. (3) Paroxysmal atrial fibrillation: Code(s): I48.0 - Paroxysmal atrial fibrillation Status: Acute Assessment and Plan: In sinus. Continue Metoprolol. Not on anticoagulation due to significant anemia in the past requiring blood transfusions. Subjective Date/time seen: 01/06/24 08:49 Interval history: Cardiology follow up for CHF Date of service 01/06/2024: Shortness of breath improving. She still has orthopnea. Lower extremity swelling resolved. Remains on oxygen. Complaining of sinus pressure and bilateral hearing deficit. Review of Systems Review of Systems: All systems reviewed & are unremarkable except as noted in HPI and below (HPI) Exam Const: General: no acute distress Other: Patient is very hard of hearing HENMT: Mouth: Yes dry mucous membranes Eyes: General: appearance normal, both eyes and all related structures Sclera: sclerae normal Resp: Effort & Inspection: normal respiratory effort Auscultation: rales and diminished lung sounds Cardio: Rate: regular rate Rhythm: regular rhythm Heart sounds: no murmurs Skin: General skin exam: normal color Neuro: Speech: normal speech Extrem: Other: No edema Psych: Mental Status: mental status grossly normal Affect: normal affect Objective Data Vital Signs Vital Signs: Vital Signs - 24 hr 01/05/24 12:00 01/05/24 13:08 01/05/24 13:15 Temperature Pulse Rate 70 73 69 Respiratory Rate 20 20 Blood Pressure Pulse Oximetry Oxygen Delivery Oxygen Flow Rate 01/05/24 13:45 01/05/24 16:00 01/05/24 20:16 Temperature 36.9 C Pulse Rate 73 71 Respiratory Rate 18 Blood Pressure 124/70 Pulse Oximetry 96 95 Oxygen Delivery Nasal Cannula Oxygen Flow Rate 4 01/05/24 20:15 01/05/24 20:25 01/05/24 20:57 Temperature Pulse Rate 73 75 73 Respiratory Rate 18 18 Blood Pressure Pulse Oximetry Oxygen Delivery Oxygen Flow Rate 01/05/24 19:20 01/05/24 20:00 01/06/24 02:07 Temperature 37.1 C Pulse Rate 73 64 Respiratory Rate 18 18 Blood Pressure 148/59 H Pulse Oximetry 94 94 Oxygen Delivery Nasal Cannula Oxygen Flow Rate 3 01/06/24 02:15 01/05/24 20:00 01/06/24 00:00 Temperature Pulse Rate 68 69 60 Respiratory Rate 18 Blood Pressure Pulse Oximetry Oxygen Delivery Oxygen Flow Rate 01/06/24 04:00 01/06/24 04:50 01/06/24 07:48 Temperature 37.2 C Pulse Rate 68 71 Respiratory Rate 18 Blood Pressure 153/63 H Pulse Oximetry 95 97 Oxygen Delivery Nasal Cannula Oxygen Flow Rate 3 01/06/24 07:48 01/06/24 07:56 Temperature Pulse Rate 74 78 Respiratory Rate 20 20 Blood Pressure Pulse Oximetry Oxygen Delivery Oxygen Flow Rate Intake/Output Intake/Output: Intake & Output 01/03/24 01/04/24 01/05/24 01/06/24 23:59 23:59 23:59 23:59 Intake Total 480 730 400 Output Total 425 6890 700 Balance 15 -4517 -300 Meds/Results Medications: Active Medications Generic Name Dose Route Start Last Admin Trade Name Freq PRN Reason Stop
[2024-01-06] MEDS: DOXAZOSIN MESYLATE 4 MG TABLET 8 MG PO (09:14)
[2024-01-06] MEDS: hydrALAZINE HCL 25 MG TABLET PO ×3 (09:14→17:02)
[2024-01-06] MEDS: predniSONE 20 MG TABLET 40 MG PO (09:14)
[2024-01-06] MEDS: hydrALAZINE 12.5 MG TABLET PO ×3 (09:14→17:02)
[2024-01-06] MEDS: FERROUS SULFATE DRIED 142 MG TABCR PO (09:14)
[2024-01-06] MEDS: FUROSEMIDE INJ 40 MG/4 ML VIAL IV PUSH ×2 (09:14→17:02)
[2024-01-06] MEDS: FOLIC ACID 1 MG TABLET PO (09:14)
[2024-01-06] MEDS: SPIRONOLACTONE 25 MG TABLET PO (09:14)
[2024-01-06] MEDS: CYANOCOBALAMIN 1,000 MCG TABLET 1000 MCG PO (09:14)
[2024-01-06] MEDS: PANTOPRAZOLE 40 MG TABLET PO (09:15)
[2024-01-06] MEDS: TOLNAFTATE 1% POWDER 45 GM BTL 1 APPLIC TOPICAL ×2 (09:15→20:12)
[2024-01-06] MEDS: FAMOTIDINE 20 MG TABLET PO ×2 (09:15→20:10)
[2024-01-06] MEDS: METOPROLOL TARTRATE 25 MG TABLET 75 MG PO ×2 (09:15→20:10)
[2024-01-06] MEDS: SUCRALFATE SUSP 100 MG/ML 10 ML UDC 1000 MG PO ×2 (11:53→20:10)
[2024-01-06] MEDS: INSULIN ASPART (*BKC) 100 UNITS/ML SUB-Q ×2 (11:54→17:02)
[2024-01-06 12:11] LABS: Glucose Point of Care 274 mg/dl (65-105)
[2024-01-06 12:30] LABS: Hematocrit 29.4 % (37.0-47.0); Hemoglobin 8.9 g/dL (12.0-15.0); Mean Corpuscular HGB Conc 30.3 g/dl (32-36); Mean Corpuscular Hemoglobin 30.2 pg (26-34); Mean Corpuscular Volume 99.7 fl (80-100); Mean Platelet Volume 10.3 fl (7.4-10.4); Platelet Count Result 208 k/mm3 (150-375); Red Blood Count 2.95 M/mm3 (4.2-5.4); White Blood Count 7.4 K/mm3 (4.5-10.0)
[2024-01-06 12:51] LABS: Alanine Aminotransferase 14 U/L (6-35); Albumin Level 3.4 g/dL (3.5-5.1); Alkaline Phosphatase 68 U/L (38-126); Aspartate Amino Transferase 18 U/L (14-36); Bilirubin,Total 1.1 mg/dL (0.2-1.3); Blood Urea Nitrogen 31 mg/dL (7-17); Calcium 8.7 mg/dL (8.4-10.2); Carbon Dioxide > 40 mmol/L (22-30); Chloride 85 mmol/L (98-107); Estimated CRCL calculation 37 ml/min; Estimated Glomerular Filt Rate 60; Glucose 283 mg/dL (65-110); Sodium 136 mmol/L (137-145)
--- NOTE | 2024-01-06 15:03 | PCRCNOTE ---
Window of time for administration has passed. See next scheduled administration.
[2024-01-06 16:53] LABS: Glucose Point of Care 288 mg/dl (65-105)
--- NOTE | 2024-01-06 17:26 | PM.IMPN ---
Progress Note: A&P Assessment and Plan (1) Acute respiratory failure: Qualifiers: Respiratory failure complication: hypoxia Qualified Code(s): J96.01 - Acute respiratory failure with hypoxia Code(s): J96.00 - Acute respiratory failure, unspecified whether with hypoxia or hypercapnia Status: Acute Assessment and Plan: - CXR, 01/04/24: 1. Likely congestive heart failure with cardiomegaly, mild pulmonary edema and there are small bilateral pleural effusions. Differential would include less likely pneumonia. - CXR, 12/22/2023: 1. COPD and/or bibasilar chronic interstitial disease. - discharged with supplemental O2 on 12/24/2023. currently requiring 4L NC - start duonebs esteban and prednisone x5 days (COPD seen on CXR, no hx of smoking) - DDX: asthma/COPD versus CHF exacerbation versus chronic interstitial lung disease verses pneumonia, or combination there of. Suspect more likely combination of asthma/COPD and CHF. No systemic symptoms or leukocytosis consistent with pneumonia presentation. Continue to trend white count. If no improvement with diuretics and scheduled nebulizers, consider CT chest non con. (2) CHF exacerbation: Qualifiers: Heart failure type: combined systolic and diastolic Qualified Code(s): I50.43 - Acute on chronic combined systolic (congestive) and diastolic (congestive) heart failure Code(s): I50.9 - Heart failure, unspecified Status: Suspected Assessment and Plan: - BNP 4460 - most recent echo (10/01/2023): Mild concentric LVH with hyperdynamic systolic function, left atrial enlargement, estimated EF >70%, and grade 1 diastolic dysfunction -Continue IV Lasix, will increase to BID. -Please monitor strict I/Os. -Restart Spironolactone at 25mg once daily. - daily weights - monitor I&Os - trend renal function - cardiology consulted (3) Insulin dependent type 2 diabetes mellitus: Code(s): E11.9 - Type 2 diabetes mellitus without complications; Z79.4 - correction (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 of insulin Status: Chronic Assessment and Plan: - hypoglycemia protocol - POC blood glucose ACHS - home medication: Hold fiasp u-100 (NF). 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 Patient was unsure regarding further follow-up and wished to discuss with her son. Spoke with patient's son/POA today. They are agreeable to proceed with MRI renal mass protocol and then will arrange appropriate outpatient follow-up based on results. Plan Diet: Heart healthy GI Prophylaxis: Not currently indicated DVT Prophylaxis: Lines: Peripheral Code Status: Full code Subjective Date/time seen: 01/06/24 17:26 Interval history: patient denies any shortness of breath and reports that she is feeling better than yesterday Review of Systems Review of Systems: All systems reviewed & are unremarkable except as noted in HPI and below (Limited, history of dementia) Exam Narrative: A/Ox3-4, poor situational recall. faint exp wheeze. faint bibasillar crackles. Const: General: no acute distress and uncomfortable Other: , female, nontoxic appearance HENMT: Face/Nose/Sinus: Normal nares present Mouth: Yes moist mucous membranes Other: NC in place. +[place] Eyes: General: ap
[2024-01-06 19:30] LABS: Glucose Point of Care 449 mg/dl (65-105)
[2024-01-06] MEDS: HYDROCORTISONE ACETATE 25 MG SUPPOSITORY RECTAL (20:10)
[2024-01-06] MEDS: INSULIN HUMAN REGULAR (*BKC) 100 UNITS/ML 16 UNITS SUB-Q (20:10)
[2024-01-06] MEDS: INSULIN GLARGINE (*BKC) 100 UNITS/ML 8 UNITS SUB-Q (20:11)
[2024-01-06] MEDS: guaiFENesin/DEXTROMETHORPHAN 10 ML UDC 5 ML PO (21:19)
[2024-01-07] VITALS (19 sets, daily range): BP systolic 124–170; BP diastolic 52–98; PULSE 60–73; RESP 16–22; TEMP 36.5–36.8; O2SAT 95–97
[2024-01-07] MEDS: IPRATROPIUM 0.5 MG/ALBUTEROL SULFATE 2.5 MG AMPUL.NEB 3 ML INHALATION ×3 (02:11→13:47)
[2024-01-07] MEDS: SUCRALFATE SUSP 100 MG/ML 10 ML UDC 1000 MG PO ×4 (06:34→21:35)
[2024-01-07 07:05] LABS: Hematocrit 28.2 % (37.0-47.0); Hemoglobin 8.4 g/dL (12.0-15.0); Mean Corpuscular HGB Conc 29.8 g/dl (32-36); Mean Corpuscular Hemoglobin 29.7 pg (26-34); Mean Corpuscular Volume 99.6 fl (80-100); Mean Platelet Volume 10.5 fl (7.4-10.4); Platelet Count Result 228 k/mm3 (150-375); Red Blood Count 2.83 M/mm3 (4.2-5.4); Red Cell Distribution Width 14.9 % (11.5-14.5); White Blood Count 6.7 K/mm3 (4.5-10.0)
[2024-01-07 07:20] LABS: Alanine Aminotransferase 11 U/L (6-35); Albumin Level 3.2 g/dL (3.5-5.1); Alkaline Phosphatase 59 U/L (38-126); Aspartate Amino Transferase 17 U/L (14-36); Bilirubin,Total 0.7 mg/dL (0.2-1.3); Blood Urea Nitrogen 39 mg/dL (7-17); Calcium 8.5 mg/dL (8.4-10.2); Carbon Dioxide > 40 mmol/L (22-30); Chloride 87 mmol/L (98-107); Estimated CRCL calculation 34 ml/min; Estimated Glomerular Filt Rate 53; Glucose 99 mg/dL (65-110); Potassium 3.3 mmol/L (3.4-5.0); Sodium 139 mmol/L (137-145)
[2024-01-07 07:54] LABS: Glucose Point of Care 108 mg/dl (65-105)
[2024-01-07] MEDS: CYANOCOBALAMIN 1,000 MCG TABLET 1000 MCG PO (09:05)
[2024-01-07] MEDS: PANTOPRAZOLE 40 MG TABLET PO (09:05)
[2024-01-07] MEDS: hydrALAZINE 12.5 MG TABLET PO ×3 (09:05→17:32)
[2024-01-07] MEDS: METOPROLOL TARTRATE 25 MG TABLET 75 MG PO ×2 (09:06→21:34)
[2024-01-07] MEDS: FAMOTIDINE 20 MG TABLET PO ×2 (09:06→21:35)
[2024-01-07] MEDS: DOXAZOSIN MESYLATE 4 MG TABLET 8 MG PO (09:06)
[2024-01-07] MEDS: hydrALAZINE HCL 25 MG TABLET PO ×3 (09:06→17:32)
[2024-01-07] MEDS: FERROUS SULFATE DRIED 142 MG TABCR PO (09:06)
[2024-01-07] MEDS: FOLIC ACID 1 MG TABLET PO (09:07)
[2024-01-07] MEDS: FUROSEMIDE INJ 40 MG/4 ML VIAL IV PUSH (09:07)
[2024-01-07] MEDS: SPIRONOLACTONE 25 MG TABLET PO (09:07)
[2024-01-07] MEDS: predniSONE 20 MG TABLET 40 MG PO (09:08)
[2024-01-07] MEDS: HYDROCORTISONE ACETATE 25 MG SUPPOSITORY RECTAL (09:08)
[2024-01-07] MEDS: TOLNAFTATE 1% POWDER 45 GM BTL 1 APPLIC TOPICAL ×2 (09:09→21:35)
--- NOTE | 2024-01-07 10:40 | PM.PNCARD ---
Progress Note: A&P Assessment and Plan (1) Acute on chronic heart failure with preserved ejection fraction (HFpEF): Code(s): I50.33 - Acute on chronic diastolic (congestive) heart failure Status: Acute Assessment and Plan: Likely due to her Lasix being discontinued last admission. Shift to PO Lasix. Continue Spironolactone. Will start Entresto as blood pressures remain elevated. (2) Hypertension: Qualifiers: Hypertension type: unspecified Qualified Code(s): I10 - Essential (primary) hypertension Code(s): I10 - Essential (primary) hypertension Status: Chronic Assessment and Plan: Above goal. Continue Metoprolol, Hydralazine, Lasix, Spironolactone. Will start Entresto. Ideally, would like to wean off of Hydralazine if possible as it is not a preferred first line agent and the TID dosing may be difficult for the patient. Will see how her blood pressures do with Entresto. (3) Paroxysmal atrial fibrillation: Code(s): I48.0 - Paroxysmal atrial fibrillation Status: Acute Assessment and Plan: In sinus. Continue Metoprolol. Not on anticoagulation due to significant anemia in the past requiring blood transfusions. Will discontinue telemetry. Plan Recommendations and plan discussed with Hospitalist. Subjective Date/time seen: 01/07/24 10:40 Interval history: Reason for visit: Acute on chronic HFpEF HPI: We are consulted for CHF. This is an 83 year old female with heart failure with preserved LVEF, paroxysmal atrial fibrillation, hypertension. Patient was recently discharged from [facility] on 12/23 after being admitted with acute respiratory failure, pneumonia, dehydration, gastritis. Patient presented to [facility] for shortness of breath, lower extremity edema, weight gain. Ongoing for the past week. She had episode of vomiting this morning. According to the discharge summary from last admission, her Spironolactone, Lisinopril, Lasix was discontinued. Workup this admission shows: NT pro BNP of 4460 CXR: Likely congestive heart failure with cardiomegaly, mild pulmonary edema and there are small bilateral pleural effusions. Differential would include less likely pneumonia. EKG with sinus rhythm with occasional PVC Echocardiogram from 10/01/2023: 1. Complete two-dimensional, color flow and Doppler transthoracic echocardiogram is performed. 2. Mild concentric LVH with hyperdynamic systolic function. 3. Left atrial enlarged. 4. Sclerotic but not significantly stenotic aortic valve. 5. Sinus rhythm. Date of service 01/05: Shortness of breath improving. She still has orthopnea. Lower extremity swelling resolved. Remains on oxygen. Complaining of sinus pressure and bilateral hearing deficit. Date of service 01/06: She is confused this morning. States she was taken to [facility] last night. She states that there is evil surrounding her. Review of Systems Review of Systems: All systems reviewed & are unremarkable except as noted in HPI and below (HPI) Exam Const: General: no acute distress HENMT: Mouth: Yes moist mucous membranes Eyes: General: appearance normal, both eyes and all related structures Sclera: sclerae normal Resp: Effort & Inspection: normal respiratory effort Other: On supplemental oxygen Cardio: Rate: regular rate Rhythm: regular rhythm Other: No lower extremity edema Psych: Other: Confused Objective Data Vital Signs Vital Signs: Vital Signs - 24 hr 01/06/24 12:00 01/06/24 14:43 01/06/24 14:00 Temperature 36.7 C Pulse Rate 70 61 Respiratory Rate 16 Blood Pressure 134/52 L Pulse Oximetry 96 Oxygen Delivery Nasal Cannula Oxygen Flow Rate 3 01/06/24 16:09 01/06/24 19:26 01/06/24 19:26 Temperature Pulse Rate 68 Respiratory Rate 18 Blood Pressure Pulse Oximetry 97 Oxygen Delivery Nasal Cannula Nasal Cannula Oxygen Flow Rate 3 3 01/06/24 19:32 01/06/24 20:10
[2024-01-07 11:54] LABS: Glucose Point of Care 254 mg/dl (65-105)
[2024-01-07] MEDS: INSULIN ASPART (*BKC) 100 UNITS/ML SUB-Q ×2 (12:49→17:37)
--- NOTE | 2024-01-07 14:44 | PM.IMPN ---
Progress Note: A&P Assessment and Plan (1) Acute respiratory failure: Qualifiers: Respiratory failure complication: hypoxia Qualified Code(s): J96.01 - Acute respiratory failure with hypoxia Code(s): J96.00 - Acute respiratory failure, unspecified whether with hypoxia or hypercapnia Status: Acute Assessment and Plan: - CXR, 01/04/24: 1. Likely congestive heart failure with cardiomegaly, mild pulmonary edema and there are small bilateral pleural effusions. Differential would include less likely pneumonia. - CXR, 12/22/2023: 1. COPD and/or bibasilar chronic interstitial disease. - discharged with supplemental O2 on 12/24/2023. currently requiring 4L NC - start duonebs esteban and prednisone x5 days (COPD seen on CXR, no hx of smoking) - DDX: asthma/COPD versus CHF exacerbation versus chronic interstitial lung disease verses pneumonia, or combination there of. Suspect more likely combination of asthma/COPD and CHF. No systemic symptoms or leukocytosis consistent with pneumonia presentation. Continue to trend white count. If no improvement with diuretics and scheduled nebulizers, consider CT chest non con. (2) CHF exacerbation: Qualifiers: Heart failure type: combined systolic and diastolic Qualified Code(s): I50.43 - Acute on chronic combined systolic (congestive) and diastolic (congestive) heart failure Code(s): I50.9 - Heart failure, unspecified Status: Suspected Assessment and Plan: - BNP 4460 - most recent echo (10/01/2023): Mild concentric LVH with hyperdynamic systolic function, left atrial enlargement, estimated EF >70%, and grade 1 diastolic dysfunction -Continue IV Lasix, will increase to BID. -Please monitor strict I/Os. - Continue Metoprolol, Hydralazine, Lasix, Spironolactone. - Start Entresto - daily weights - monitor I&Os - trend renal function - cardiology consulted (3) Insulin dependent type 2 diabetes mellitus: Code(s): E11.9 - Type 2 diabetes mellitus without complications; Z79.4 - residential (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 of insulin Status: Chronic Assessment and Plan: - hypoglycemia protocol - POC blood glucose ACHS - home medication: Hold fiasp u-100 (NF). 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 Patient was unsure regarding further follow-up and wished to discuss with her son. Spoke with patient's son/POA today. They are agreeable to proceed with MRI renal mass protocol and then will arrange appropriate outpatient follow-up based on results. Plan Diet: Heart healthy GI Prophylaxis: Not currently indicated DVT Prophylaxis: Lines: Peripheral Code Status: Full code Subjective Date/time seen: 01/07/24 14:44 Interval history: Patient was less disoriented today in the morning. Continue Metoprolol, Hydralazine, Lasix, Spironolactone. Entresto was started by Cardiology today. Review of Systems Review of Systems: All systems reviewed & are unremarkable except as noted in HPI and below (Limited, history of dementia) Exam Narrative: A/Ox3-4, poor situational recall. faint exp wheeze. faint bibasillar crackles. Const: General: no acute distress and uncomfortable Other: , female, nontoxic appearance HENMT: Face/Nose/Sinus: Normal nares present Mouth: Yes moist mucous memb
[2024-01-07 16:01] LABS: Glucose Point of Care 389 mg/dl (65-105)
[2024-01-07 17:03] LABS: Glucose Point of Care 402 mg/dl (65-105)
--- NOTE | 2024-01-07 17:42 | PC.NURSE ---
Gilmer Walsh called and made aware 0f 402 blood glucose and stated to give the 6u only per sliding scale. 6 untis given as ordered. Will continue to monitor.
[2024-01-07 20:24] LABS: Glucose Point of Care 448 mg/dl (65-105)
[2024-01-07] MEDS: INSULIN GLARGINE (*BKC) 100 UNITS/ML 8 UNITS SUB-Q (21:32)
[2024-01-07] MEDS: INSULIN HUMAN REGULAR (*BKC) 100 UNITS/ML 14 UNITS SUB-Q (21:33)
[2024-01-07] MEDS: SACUBITRIL/VALSARTAN 24-26 MG TABLET 1 TAB PO (21:35)
[2024-01-08] VITALS (12 sets, daily range): BP systolic 118–152; BP diastolic 45–58; PULSE 54–65; RESP 16–20; TEMP 36.4–37.2; O2SAT 93–98
[2024-01-08] MEDS: IPRATROPIUM 0.5 MG/ALBUTEROL SULFATE 2.5 MG AMPUL.NEB 3 ML INHALATION ×3 (02:43→19:39)
[2024-01-08] MEDS: SUCRALFATE SUSP 100 MG/ML 10 ML UDC 1000 MG PO ×4 (06:32→20:37)
[2024-01-08 08:07] LABS: Glucose Point of Care 120 mg/dl (65-105)
[2024-01-08] MEDS: hydrALAZINE HCL 25 MG TABLET PO ×3 (08:43→17:00)
[2024-01-08] MEDS: METOPROLOL TARTRATE 25 MG TABLET 75 MG PO ×2 (08:43→20:37)
[2024-01-08] MEDS: FOLIC ACID 1 MG TABLET PO (08:43)
[2024-01-08] MEDS: CYANOCOBALAMIN 1,000 MCG TABLET 1000 MCG PO (08:44)
[2024-01-08] MEDS: hydrALAZINE 12.5 MG TABLET PO ×3 (08:44→17:00)
[2024-01-08] MEDS: FAMOTIDINE 20 MG TABLET PO ×2 (08:44→20:37)
[2024-01-08] MEDS: predniSONE 20 MG TABLET 40 MG PO (08:44)
[2024-01-08] MEDS: FUROSEMIDE 40 MG TABLET PO (08:44)
[2024-01-08] MEDS: SPIRONOLACTONE 25 MG TABLET PO (08:44)
[2024-01-08] MEDS: DOXAZOSIN MESYLATE 4 MG TABLET 8 MG PO (08:44)
[2024-01-08] MEDS: FERROUS SULFATE DRIED 142 MG TABCR PO (08:44)
[2024-01-08] MEDS: TOLNAFTATE 1% POWDER 45 GM BTL 1 APPLIC TOPICAL ×2 (08:44→20:38)
[2024-01-08] MEDS: PANTOPRAZOLE 40 MG TABLET PO (08:44)
[2024-01-08] MEDS: SACUBITRIL/VALSARTAN 24-26 MG TABLET 1 TAB PO ×2 (08:44→20:37)
[2024-01-08 11:47] LABS: Glucose Point of Care 238 mg/dl (65-105)
[2024-01-08] MEDS: INSULIN ASPART (*BKC) 100 UNITS/ML SUB-Q ×2 (12:09→17:00)
--- NOTE | 2024-01-08 14:34 | PM.IMPN ---
Progress Note: A&P Assessment and Plan (1) Acute respiratory failure: Qualifiers: Respiratory failure complication: hypoxia Qualified Code(s): J96.01 - Acute respiratory failure with hypoxia Code(s): J96.00 - Acute respiratory failure, unspecified whether with hypoxia or hypercapnia Status: Acute Assessment and Plan: - CXR, 01/04/24: 1. Likely congestive heart failure with cardiomegaly, mild pulmonary edema and there are small bilateral pleural effusions. Differential would include less likely pneumonia. - CXR, 12/22/2023: 1. COPD and/or bibasilar chronic interstitial disease. - discharged with supplemental O2 on 12/24/2023. currently requiring 4L NC - start duonebs esteban and prednisone x5 days (COPD seen on CXR, no hx of smoking) - DDX: asthma/COPD versus CHF exacerbation versus chronic interstitial lung disease verses pneumonia, or combination there of. Suspect more likely combination of asthma/COPD and CHF. No systemic symptoms or leukocytosis consistent with pneumonia presentation. Continue to trend white count. If no improvement with diuretics and scheduled nebulizers, consider CT chest non con. (2) CHF exacerbation: Qualifiers: Heart failure type: combined systolic and diastolic Qualified Code(s): I50.43 - Acute on chronic combined systolic (congestive) and diastolic (congestive) heart failure Code(s): I50.9 - Heart failure, unspecified Status: Suspected Assessment and Plan: - BNP 4460 - most recent echo (10/01/2023): Mild concentric LVH with hyperdynamic systolic function, left atrial enlargement, estimated EF >70%, and grade 1 diastolic dysfunction -Continue IV Lasix, will increase to BID. -Please monitor strict I/Os. - Continue Metoprolol, Hydralazine, Lasix, Spironolactone. - Start Entresto - daily weights - monitor I&Os - trend renal function - cardiology consulted (3) Insulin dependent type 2 diabetes mellitus: Code(s): E11.9 - Type 2 diabetes mellitus without complications; Z79.4 - group home (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 of insulin Status: Chronic Assessment and Plan: - hypoglycemia protocol - POC blood glucose ACHS - home medication: Hold fiasp u-100 (NF). 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 Patient was unsure regarding further follow-up and wished to discuss with her son. Spoke with patient's son/POA today. They are agreeable to proceed with MRI renal mass protocol and then will arrange appropriate outpatient follow-up based on results. Plan Diet: Heart healthy GI Prophylaxis: Not currently indicated DVT Prophylaxis: Lines: Peripheral Code Status: Full code Subjective Date/time seen: 01/08/24 14:34 Interval history: Patient is disoriented today. Cardiology started entresto yesterday and tolerating well. Review of Systems Review of Systems: All systems reviewed & are unremarkable except as noted in HPI and below (Limited, history of dementia) Exam Narrative: A/Ox3-4, poor situational recall. faint exp wheeze. faint bibasillar crackles. Const: General: no acute distress and uncomfortable Other: , female, nontoxic appearance HENMT: Face/Nose/Sinus: Normal nares present Mouth: Yes moist mucous membranes Other: NC in place. +[place] Eyes: General: yadira
[2024-01-08 16:37] LABS: Glucose Point of Care 310 mg/dl (65-105)
[2024-01-08 20:29] LABS: Glucose Point of Care 310 mg/dl (65-105)
[2024-01-08] MEDS: HYDROCORTISONE ACETATE 25 MG SUPPOSITORY RECTAL (20:37)
[2024-01-08] MEDS: INSULIN GLARGINE (*BKC) 100 UNITS/ML 8 UNITS SUB-Q (20:37)
[2024-01-09] VITALS (8 sets, daily range): BP systolic 156; BP diastolic 77; PULSE 57–109; RESP 18–20; TEMP 36.9; O2SAT 96–97
[2024-01-09] MEDS: IPRATROPIUM 0.5 MG/ALBUTEROL SULFATE 2.5 MG AMPUL.NEB 3 ML INHALATION ×3 (02:47→13:41)
[2024-01-09] MEDS: SUCRALFATE SUSP 100 MG/ML 10 ML UDC 1000 MG PO ×2 (06:28→12:21)
[2024-01-09 06:55] LABS: Hematocrit 31.8 % (37.0-47.0); Hemoglobin 9.4 g/dL (12.0-15.0); Mean Corpuscular HGB Conc 29.6 g/dl (32-36); Mean Corpuscular Hemoglobin 30.3 pg (26-34); Mean Corpuscular Volume 102.6 fl (80-100); Mean Platelet Volume 10.6 fl (7.4-10.4); Platelet Count Result 218 k/mm3 (150-375); Red Cell Distribution Width 14.7 % (11.5-14.5); White Blood Count 6.8 K/mm3 (4.5-10.0)
[2024-01-09 07:16] LABS: Alanine Aminotransferase 10 U/L (6-35); Albumin Level 2.9 g/dL (3.5-5.1); Alkaline Phosphatase 56 U/L (38-126); Aspartate Amino Transferase 20 U/L (14-36); Bilirubin,Total 0.6 mg/dL (0.2-1.3); Blood Urea Nitrogen 40 mg/dL (7-17); Calcium 8.5 mg/dL (8.4-10.2); Carbon Dioxide > 40 mmol/L (22-30); Chloride 90 mmol/L (98-107); Estimated CRCL calculation 42 ml/min; Estimated Glomerular Filt Rate > 60; Glucose 199 mg/dL (65-110); Potassium 3.6 mmol/L (3.4-5.0); Sodium 134 mmol/L (137-145)
[2024-01-09 07:34] LABS: Glucose Point of Care 202 mg/dl (65-105)
[2024-01-09] MEDS: INSULIN ASPART (*BKC) 100 UNITS/ML SUB-Q (08:58)
[2024-01-09] MEDS: METOPROLOL TARTRATE 25 MG TABLET 75 MG PO (09:01)
[2024-01-09] MEDS: hydrALAZINE HCL 25 MG TABLET PO ×2 (09:01→12:21)
[2024-01-09] MEDS: predniSONE 20 MG TABLET 40 MG PO (09:01)
[2024-01-09] MEDS: SACUBITRIL/VALSARTAN 24-26 MG TABLET 1 TAB PO (09:01)
[2024-01-09] MEDS: FERROUS SULFATE DRIED 142 MG TABCR PO (09:01)
[2024-01-09] MEDS: FUROSEMIDE 40 MG TABLET PO (09:01)
[2024-01-09] MEDS: DOXAZOSIN MESYLATE 4 MG TABLET 8 MG PO (09:01)
[2024-01-09] MEDS: SPIRONOLACTONE 25 MG TABLET PO (09:01)
[2024-01-09] MEDS: FOLIC ACID 1 MG TABLET PO (09:01)
[2024-01-09] MEDS: PANTOPRAZOLE 40 MG TABLET PO (09:01)
[2024-01-09] MEDS: CYANOCOBALAMIN 1,000 MCG TABLET 1000 MCG PO (09:01)
[2024-01-09] MEDS: FAMOTIDINE 20 MG TABLET PO (09:01)
[2024-01-09] MEDS: TOLNAFTATE 1% POWDER 45 GM BTL 1 APPLIC TOPICAL (09:02)
[2024-01-09] MEDS: hydrALAZINE 12.5 MG TABLET PO ×2 (09:05→12:21)
[2024-01-09 11:54] LABS: Glucose Point of Care 170 mg/dl (65-105)
--- NOTE | 2024-01-09 13:45 | PM.DS ---
DS: Admitting Diagnosis Discharge Date 01/09/2024 Admitting Diagnosis CHF exacerbation DS: Discharge Diagnosis Discharge Diagnosis (1) Acute respiratory failure: Qualifiers: Respiratory failure complication: hypoxia Qualified Code(s): J96.01 - Acute respiratory failure with hypoxia Code(s): J96.00 - Acute respiratory failure, unspecified whether with hypoxia or hypercapnia Status: Acute Assessment and Plan: - CXR, 01/04/24: 1. Likely congestive heart failure with cardiomegaly, mild pulmonary edema and there are small bilateral pleural effusions. Differential would include less likely pneumonia. - CXR, 12/22/2023: 1. COPD and/or bibasilar chronic interstitial disease. - discharged with supplemental O2 on 12/24/2023. currently requiring 4L NC - start duonebs esteban and prednisone x5 days (COPD seen on CXR, no hx of smoking) - DDX: asthma/COPD versus CHF exacerbation versus chronic interstitial lung disease verses pneumonia, or combination there of. Suspect more likely combination of asthma/COPD and CHF. No systemic symptoms or leukocytosis consistent with pneumonia presentation. Continue to trend white count. If no improvement with diuretics and scheduled nebulizers, consider CT chest non con. (2) CHF exacerbation: Qualifiers: Heart failure type: combined systolic and diastolic Qualified Code(s): I50.43 - Acute on chronic combined systolic (congestive) and diastolic (congestive) heart failure Code(s): I50.9 - Heart failure, unspecified Status: Suspected Assessment and Plan: - BNP 4460 - most recent echo (10/01/2023): Mild concentric LVH with hyperdynamic systolic function, left atrial enlargement, estimated EF >70%, and grade 1 diastolic dysfunction -Continue IV Lasix, will increase to BID. -Please monitor strict I/Os. - Continue Metoprolol, Hydralazine, Lasix, Spironolactone. - Start Entresto - daily weights - monitor I&Os - trend renal function - cardiology consulted (3) Insulin dependent type 2 diabetes mellitus: Code(s): E11.9 - Type 2 diabetes mellitus without complications; Z79.4 - [facility] (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 of insulin Status: Chronic Assessment and Plan: - hypoglycemia protocol - POC blood glucose ACHS - home medication: Hold fiasp u-100 (NF). 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 Patient was unsure regarding further follow-up and wished to discuss with her son. Spoke with patient's son/POA today. They are agreeable to proceed with MRI renal mass protocol and then will arrange appropriate outpatient follow-up based on results. Plan Diet: Heart healthy GI Prophylaxis: Not currently indicated DVT Prophylaxis: Lines: Peripheral Code Status: Full code DS: Summary Hospital Course Hospital Course: 83 y/o F presents here with shortness of breath with PMH of asthma, AFib, CHF, diabetes, and hypertension. The patient presents here from home via EMS for further evaluation of shortness of breath. She reports onset of SOB approximately 1 week ago. Shortness of breath worsens with exertion. She reports partial relief with albuterol inhaler. Shortness of breath is accompanied by chronic dry cough, weight gain (141 -> 153 lbw), and bilateral lower extremity edema. Patient denies fever, chills, body
[2024-01-09 15:29] LABS: Glucose Point of Care 205 mg/dl (65-105)
== END 2024-01-09 17:20 | disposition home or self-care (01) | DRG 291 ==
LOC: ANHED 09:15 → ANH3MEDSUR 14:51
PROVIDERS: Emergency Medicine; Student in an Organized Health Care Education/Training Program; Admitting Provider Internal Medicine; Emergency Provider Physician Assistant; PCP Family Medicine Adolescent Medicine; Visit Provider General Practice
DX: I11.0 Hypertensive heart disease with heart failure (principal); I50.43 Acute on chronic combined systolic (congestive) and diastolic (congestive) heart failure; J96.21 Acute and chronic respiratory failure with hypoxia; J44.9 Chronic obstructive pulmonary disease, unspecified; J45.909 Unspecified asthma, uncomplicated; N28.89 Other specified disorders of kidney and ureter; E11.9 Type 2 diabetes mellitus without complications; K21.9 Gastro-esophageal reflux disease without esophagitis; H35.3112 Nonexudative age-related macular degeneration, right eye, intermediate dry stage; K76.0 Fatty (change of) liver, not elsewhere classified; I70.0 Atherosclerosis of aorta; M81.0 Age-related osteoporosis without current pathological fracture; I48.0 Paroxysmal atrial fibrillation; E78.1 Pure hyperglyceridemia; N32.81 Overactive bladder; Z79.01 Long term (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 of anticoagulants; Z79.4 Long term (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 of insulin; Z99.81 Dependence on supplemental oxygen; Z90.49 Acquired absence of other specified parts of digestive tract
CPT/HCPCS: 36415; 71046; 80053; 82948; 83036; 83880; 84484; 85025; 85027; 85610; 85730; 93005; 94640; 96374; 96376; 97110; 97116; 97161; 97166; 97530; 97535; 99285; A9270; G0378; J1815; J1940; J7512

== ENCOUNTER 2024-03-18 16:19 | Inpatient (IN) | payer MEDICARE, SELFPAY ==
--- NOTE | ~2024-03-18 | XR_ITS ---
EXAMINATION: XR chest 1V portable DATE: 03/20/2024 13:33 INDICATION: Shortness of breath. TECHNIQUE: A single frontal view of the chest was obtained. COMPARISON: Chest 2 views 03/18/2024, chest CT 03/18/2024 FINDINGS: The patient is rotated to her left. There is mild atelectasis at the lung bases. No pleural effusion or pneumothorax. Cardiomegaly is noted. IMPRESSION: 1. Mild atelectasis at the lung bases. 2. Cardiomegaly. Reviewed, dictated and finalized at location A. K GRADER
--- NOTE | ~2024-03-18 | XR_ITS ---
XR chest 2V DATE: 03/18/2024 18:17 INDICATION: Lower lobe crackles TECHNIQUE: AP and lateral chest COMPARISON: 01/04/2024 AP and lateral chest FINDINGS: Cardiomegaly. Aortic arch calcification, mild aortic unfolding. No hilar or mediastinal enl argement. There is mild elevation of the right diaphragm. No pulmonary infiltrate or consolidation, pleural effusion or pulmonary vascular congestion or pneumo thorax is detected. Diffuse osteopenia. Bilateral chronic rotator cuff atrophy. IMPRESSION: Cardiomegaly, aortic atherosclerosis No active pulmonary disease Reviewed, dictated and finalized at location A. STER CLERK
--- NOTE | ~2024-03-18 | XR_ITS ---
MODIFIED ESOPHAGRAM HISTORY: Aspiration pneumonia TECHNIQUE: Modified barium esophagram was performed on 03/20/2024. I administered fluoroscopy and per formed the exam with speech pathologist. Patient was seated for lateral fluoroscopic imaging for ing estion of thin liquids, pudding, solids and quantified amounts, followed by thin liquids in uncontrol led amounts. This was recorded on tape. A single fluoroscopic spot image was also recorded. The DAP f or this procedure was 0.782 Gycm2. The amount of fluoroscopy time used during this procedure was 1.2 minutes. FINDINGS: Oral stage: Adequate function. Pharyngeal stage: Adequate function. Cervical/esophageal stage: Adequate function. IMPRESSION: Patient tolerated regular consistency oral feedings in the upright position. Please maida elate with speech pathologist findings and specific feeding recommendations. Reviewed, dictated and finalized at location A. R COATING SUPERVISOR IMPRESSION: Patient tolerated regular consistency oral feedings in the upright position. Please correlate with speech pathologist findings and specific feedi ng recommendations.
--- NOTE | ~2024-03-18 | CT_ITS ---
EXAMINATION: CT chest abdomen pelvis w con DATE: 03/18/2024 23:42 INDICATION: Chest pain. Abdominal pain. TECHNIQUE: Computed tomography (CT) of the chest, abdomen, and pelvis was performed with 100 mL Omnip aque 350 intravenous contrast. Automated exposure control and iterative reconstruction technique were employed. The dose-length product was 1012.48 mGy-cm. COMPARISON: CT abdomen and pelvis 12/19/2023, abdomen MRI 12/23/2023 FINDINGS: CHEST CT: The lungs demonstrate mild atelectasis. No pleural effusion. The heart size is normal. There is a tra ce pericardial effusion. There are coronary artery calcifications. There is severe thoracic spondylos is. ABDOMEN/PELVIS CT: The liver, spleen, pancreas, and adrenal glands are normal. There is a 15 mm cyst in right kidney. Th ere is a 13.9 x 6.5 cm cystic mass in left kidney with thickened enhancing septations. There is diver ticulosis of the colon without evidence of diverticulitis. There are no dilated loops of bowel. The a ppendix is normal. There is calcified atherosclerosis of the aorta and many of the other arteries. Th ere are no pathologically enlarged lymph nodes. There is no free intraperitoneal fluid. There is mild lumbar spondylosis. IMPRESSION: 1. 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 Reviewed, dictated and finalized at location A. ER OUT IMPRESSION: 1. 13.9 cm Bosniak type III cystic lesion of left kidney, stable from 12/23/2023 .
[2024-03-18 16:20] VITALS: BP 135/72; PULSE 61; RESP 14; TEMP 36.2; O2SAT 97
[2024-03-18 17:20] LABS: Glucose Point of Care 217 mg/dl (65-105)
--- NOTE | 2024-03-18 17:48 | ED_ITS ---
HPI - Weakness General Chief complaint: Weakness <Corinna Funez APRN - Last Filed: 03/19/24 01:51> Stated complaint: weakness <Corinna Funez APRN - Last Filed: 03/19/24 01:51> Time Seen by Provider: 03/18/24 16:58 <Corinna Funez APRN - Last Filed: 03/19/24 01:51> History of Present Illness HPI Narrative: Patient is an 83-year-old female who presents to the ER with complaints of weakness, constipation, urinary retention, full body aches. She reports she has not had a bowel movement in 2-3 days. Patient reports this morning she was feeling so weak that she decided not to take her water pill. She reports she has not urinated since this morning. Patient wears 3 L nasal cannula at baseline. She denies increased shortness of breath, fevers, or lower extremity swelling. <Corinna Funez APRN - Last Filed: 03/19/24 01:51> MD Complaint: generalized weakness <Corinna Funez APRN - Last Filed: 03/19/24 01:51> Related Data Home medications: Home Medications Medication Instructions Recorded Confirmed acetaminophen 500 mg tablet 650 mg PO Q6H PRN pain 1-3 04/02/23 03/18/24 (Tylenol Extra Strength) insulin aspart (niacinamide) 2 - 4 unit subcut WMHS 09/30/23 03/18/24 (U-100) 100 unit/mL subcutaneous solution (Fiasp U-100 Insulin) hydrocortisone acetate 25 mg 25 mg RECTAL ONCE PRN hemmorhoids 01/18/24 03/18/24 rectal suppository (Anusol-HC) tolnaftate 1 % topical powder 1 applic topical Q12HR PRN 01/18/24 03/18/24 irritation dextromethorphan-guaifenesin 10 10 ml PO Q4-6H PRN Cough 03/18/24 03/18/24 mg-100 mg/5 mL oral liquid (Safe Tussin DM) hydralazine 25 mg tablet See Rx Instructions .Route .COMPLEX 03/18/24 03/18/24 insulin glargine 100 unit/mL (3 10 unit subcut QPM 03/18/24 03/18/24 mL) subcutaneous pen (Basaglar KwikPen U-100 Insulin) <Corinna Funez APRN - Last Filed: 03/19/24 01:51> Allergies/Adverse reactions: Allergies Allergy/AdvReac Type Severity Reaction Status Date / Time Penicillins Allergy Severe HIVES Verified 03/18/24 22:09 hydrocodone AdvReac Severe SEVERE GI Verified 03/18/24 22:09 UPSET, N/V nitrofurantoin AdvReac Severe Swelling Verified 03/18/24 22:09 propoxyphene AdvReac Severe GI UPSET Verified 03/18/24 22:09 acetaminophen AdvReac Unknown Unknown Verified 03/18/24 22:09 [From Darvocet-N] adhesive tape AdvReac Unknown Unknown Verified 03/18/24 22:09 amlodipine AdvReac Unknown Unknown Verified 03/18/24 22:09 glimepiride AdvReac Unknown Unknown Verified 03/18/24 22:09 metformin AdvReac Unknown Unknown Verified 03/18/24 22:09 omeprazole [From Prilosec] AdvReac Unknown Unknown Verified 03/18/24 22:09 pioglitazone AdvReac Unknown Unknown Verified 03/18/24 22:09 simvastatin [From Zocor] AdvReac Unknown Unknown Verified 03/18/24 22:09 <Corinna Funez APRN - Last Filed: 03/19/24 01:51> Review of Systems Review of Systems: All systems reviewed & are unremarkable except as noted in HPI and below <Corinna Funez APRN - Last Filed: 03/19/24 01:51> [facility] Past Medical History Medical History: Medical History Acquired hypertriglyceridemia Acute psychosis Age related osteoporosis Aortic atherosclerosis Asthma B12 deficiency C. difficile colitis Chronic anticoagulation Chronic systolic (congestive) heart failure Gastroesophageal reflux disease GERD (gastroesophageal reflux disease) Gout Hepatic steatosis Hypertension Macular degeneration Nonexudative age-related macular degeneration, right eye, intermediate dry stage Overactive bladder <Corinna Funez APRN - Last Filed: 03/19/24 01:51> Surgical History Surgical History: Surgical History History of cholecystectomy History of repair of rotator cuff <Corinna Funez APRN - Last Filed: 03/19/24 01:51> Family History Family History: Family History Father Asthma Cerebrovascular accident Family history of diabetes mellitus in first degree relative Sibling Family history of diabetes mellitus in first degree relative Family history of malignant neoplasm of urinary bladder Mother Family history of heart disease in male family member before age 55 Other Family history of arthritis Hypertension <Corinna Funez APRN - Last Filed: 03/19/24 01:51> Social History Social History: Social History Social History: Surrogate medical decision maker: Julio Ventura, gila. Code status: Full code. Smoking packs per day: 1 Smoking cigarettes per day: 20.0 Years smoked: 15 Smoking pack-years: 15.00 Smoking status: Never smoker Second hand tobacco smoke exposure: Yes Alcohol intake: never Substance use: never Substance use type: does not use Do You Feel Safe in your Home?: Yes Lack of Transportation: YES Lack of Food: Never True Current Housing: I Have Housing Concerned About Future Housing: No Difficulty Paying Gas/Electric Bills: No Difficulty Paying for Meds: No Currently Unemployed: No Education: Decline to Answer Difficulty w/ Childcare or Family Care: No Living arrangements: with family Additional living arrangements comments: Lives in [place]. Son Julio stays with her. Occupation/Education: retired Spiritual care concerns: No <Corinna Funez APRN - Last Filed: 03/19/24 01:51> Exam Narrative: GENERAL: Well appearing, well-nourished, non-toxic, in no acute distress. HEAD: Normocephalic, atraumatic. NECK: Supple. No adenopathy, no masses. RESPIRATORY: Airway patent, respirations nonlabored. Crackles bilateral lower lobes, no rales, rhonchi, wheezing. CARDIOVASCULAR: Bradycardia without murmurs, rubs, or gallops. Peripheral pulses 2+ and equal bilaterally. ABDOMINAL: Soft, mildly tender with palpation in all four quadrants, nondistended, no hepatosplenomegaly. Normoactive BS. MUSCULOSKELETAL: Moves all extremities. Strength/ROM intact without gross deformities. SKIN: Warm, dry, pallor. No rashes. NEURO: A&O X3. Speech clear. Cranial nerves intact. No ataxic movements. PSYCHIATRIC: Appropriate mood and affect. Normal interaction. <Corinna Bang Funez, NUCLEAR STATION OPERATOR - Last Filed: 03/19/24 01:51> Course QUALITY CONTROL INDUSTRIAL ENGINEER/PA Physician Supervision I agree with midlevel documentation; I performed the majority of the medical decision making component of this evaluation as outlined by the midlevel provider. I had independent [id number] time with the patient and performed my own independent evaluation and assessment. patient has hypoxic respiratory failure during my initial encounter the patient after being here in the emergency department. She was saturating 80% despite high-flow nasal cannula oxygen therapy. This started improving after being placed on 100% FiO2. She was slightly tachypneic and her ABGs were worsening. She does have CO2 reten tion with worsening acidosis status. She previously was compensated but now has a pH that is dropping between 7.32-7.30. Requiring additional therapies at this time including steroids and bronchodilator therapy. I had extensive discussions with the family and the patient at bedside regarding plan of care going forward and need to initiate BiPAP therapy. Patient initially reluctant to try BiPAP but this was successfully placed on her after she was agreeable to trying this. Repeat ABG after BiPAP therapy showed no significant improvement but also no deterioration further. Patient looked and felt improved while on the BiPAP and tolerated this albeit with some reminders at bedside. We did discuss extensively with the patient's son at bedside regarding possibility for need for intubation given her respiratory efforts and hyper or cap taking hypoxic respiratory failure status. Ultimately patient decided that she would elect to be intubated if she has respiratory arrest or respiratory failure that is worsening. Patient requires admission to a higher level of care at this time although she is presently tolerating BiPAP does have the propensity to deteriorate throughout the night or worsen acutely. hospitalist Dr. Sood was spoken to over the phone with recommendations to get the ICU involved not necessarily for an ICU bed or admission but to be aware of the patient in case that she has deterioration throughout the night and needs intubation. Dr. Dixon was made aware of the patient over the phone in consult at formally. Please refer to remaining dictation by mid-level provider for remaining details of her visit here in the ED. Patient successfully admitted to the intermediate care unit at this time on BiPAP therapy. <Nitesh Werner MD - Last Filed: 03/19/24 08:14> Vital Signs Vital signs: Vital Signs Temperature 36.2 C L 03/18/24 16:20 Pulse Rate 61 03/18/24 16:20 Respiratory Rate 14 03/18/24 16:20 Blood Pressure 135/72 03/18/24 16:20 Pulse Oximetry 97 03/18/24 16:20 Oxygen Delivery Nasal Cannula 03/18/24 16:20 Oxygen Flow Rate 3 03/18/24 16:20 Temperature 36.4 C 03/19/24 03:58 Pulse Rate 79 03/19/24 06:00 Respiratory Rate 19 03/19/24 04:00 Blood Pressure 151/56 H 03/19/24 03:58 Pulse Oximetry 98 03/19/24 07:48 Oxygen Delivery Nasal Cannula 03/19/24 07:48 Oxygen Flow Rate 3 03/19/24 07:48 Fraction of Inspired Oxygen 21 03/19/24 04:00 <Corinna Funez, DEDRICK - Last Filed: 03/19/24 01:51> Vital Signs Temperature 36.2 C L 03/18/24 16:20 Pulse Rate 61 03/18/24 16:20 Respiratory Rate 14 03/18/24 16:20 Blood Pressure 135/72 03/18/24 16:20 Pulse Oximetry 97 03/18/24 16:20 Oxygen Delivery Nasal Cannula 03/18/24 16:20 Oxygen Flow Rate 3 03/18/24 16:20 Temperature 36.4 C 03/19/24 03:58 Pulse Rate 79 03/19/24 06:00 Respiratory Rate 19 03/19/24 04:00 Blood Pressure 151/56 H 03/19/24 03:58 Pulse Oximetry 98 03/19/24 07:48 Oxygen Delivery Nasal Cannula 03/19/24 07:48 Oxygen Flow Rate 3 03/19/24 07:48 Fraction of Inspired Oxygen 21 03/19/24 04:00 <Nitesh Werner MD - Last Filed: 03/19/24 08:14> MDM - Weakness MDM Narrative Medical decision making narrative: Patient is an 83-year-old female who presents to the ER with complaints of weakness, constipation, urinary retention, full body aches. She reports she has not had a bowel movement in 2-3 days. Patient reports this morning she was feeling so weak that she decided not to take her water pill. She reports she has not urinated since this morning. Patient wears 3 L nasal cannula at baseline. She denies increased shortness of breath, fevers, or lower extremity swelling. Labs Ordered: CBC, CMP, troponin, ABG, INR, PTT, lipase, COVID/RSV/flu, urinalysis, BNP Imaging Ordered: chest x-ray, EKG, CT chest/abdomen/pelvis Results: Pt's chest x-ray indicated Cardiomegaly. Aortic arch calcification, mild aortic unfolding. No hilar or mediastinal enlargement. There is mild elevation of the right diaphragm. No pulmonary infiltrate or consolidation, pleural effusion or pulmonary vascular congestion or pneumothorax is detected. Diffuse osteopenia. Bilateral chronic rotator cuff atrophy. Pt's CT scan indicated multilobulated cystic lesion in the left ovary, which should be followed up with a contrast enhanced MRI. No other acute abnormalities in the chest, abdomen, or pelvis. Patient's CBC indicated a white blood cell count of 5.6, hemoglobin of 10.3 and hematocrit of 34.0, platelet count 141. Her chemistry indicated BUN 29, glucose 207, carbon oxide level of greater than 40, which lead to patient requiring an ABG. Patient's BNP was 1980, so she was given 40 mg Lasix IV. Her troponin was less than 0.012. Patient's total protein was 6.0 on her albumin level is 3.4. Her urinalysis was unremarkable. Patient's initial ABG indicated pH is 7.35 and CO2 of 70.5, which is elevated compared to pt's previous ABG results. Diagnosis: COPD exacerbation Consults: ICU-Dr. Aguila, made aware of pt going to IMU on BIPAP in case of decompensation during the night. Disposition/Plan: 1929- Pt refusing BIPAP at this time. 2029- Pt continues to refuse BIPAP and CT scan until speaking with her son. 2099- Extensive amount of time was spent with pt and her son discussing pt's care. Pt is in agreement to get her CT scan once she gets something to help her relax. She would like to avoid BIPAP and try to see if Lasix administration will help relieve her symptoms. 2200- Pt placed on high flow nasal cannula. 2230-Patient placed on BiPAP after her 2nd ABG results. She will be given a dose IV steroids, a DuoNeb, and a repeat ABG will be drawn once pt has been on BIPAP for approximately 1/2 hour. <Corinna Funez, NUCLEAR STATION OPERATOR - Last Filed: 03/19/24 01:51> Differential Diagnosis Differential diagnosis: Likely sepsis and other (COPD, CHF, pneumonia) <Corinna Funez APRN - Last Filed: 03/19/24 01:51> Lab Data Attestation: I reviewed the patient's lab results. <Corinna Funez APRN - Last Filed: 03/19/24 01:51> Result diagrams: 03/18/24 18:33 03/18/24 18:33 <Corinna Funez APRN - Last Filed: 03/19/24 01:51> Labs: Lab Results 03/18/24 03/18/24 03/18/24 Range/Units 17:15 18:08 18:32 WBC (4.5-10.0) K/mm3 RBC (4.2-5.4) M/mm3 Hgb (12.0-15.0) g/dL Hct (37.0-47.0) % MCV (80-100) fl MCH (26-34) pg MCHC (32-36) g/dl RDW (11.5-14.5) % Plt Count (150-375) k/mm3 MPV (7.4-10.4) fl Immature Gran % (Auto) (0-0.5) % Neut % (Auto) (45.5-73.1) % Lymph % (Auto) (18.3-44.2) % [place] % (Auto) (2.6-8.5) % Eos % (Auto) (0-4.4) % Baso % (Auto) (0.2-1.2) % Lymph # (Auto) (0.9-3.2) K/mm3 [place] # (Auto) (0.1-0.6) K/mm3 Eos # (Auto) (0-0.3) K/mm3 Baso # (Auto) (0.0-0.1) K/mm3 Abs Immat Gran (auto) (0.00-0.031) K/mm3 Absolute Neuts (auto) (1.3-6.7) K/mm3 Absolute Nucleated RBC (0.0-0.012) K/mm3 Nucleated RBC % (0.0-0.2) % PT (11.1-14.7) Seconds INR APTT (22.3-36.8) Seconds Expiratory Pressure cmH2O Inspiratory Pressure cmH2O Sodium (137-145) mmol/L Potassium (3.4-5.0) mmol/L Chloride (98-107) mmol/L Carbon Dioxide (22-30) mmol/L Anion Gap (4-12) mmol/L BUN (7-17) mg/dL Creatinine (0.7-1.0) mg/dL Estim Creat Clear Calc ml/min Estimated GFR (59 - ) Glucose (65-110) mg/dL POC Capillary Glucose 217 H (65-105) mg/dl Calcium (8.4-10.2) mg/dL Total Bilirubin (0.2-1.3) mg/dL AST (14-36) U/L ALT (6-35) U/L Alkaline Phosphatase (38-126) U/L Troponin I (0.000-0.034) ng/mL NT-Pro-B Natriuret Pep 1980 H (19.9-100) pg/mL Total Protein (6.3-8.2) g/dL Albumin (3.5-5.1) g/dL Lipase (23-300) U/L Urine Color (Yellow) Urine Appearance (Clear) Urine pH (5.0-9.0) Ur Specific [place] (1.001-1.035) Urine Protein (Negative) mg/dL Urine Glucose (UA) (Negative) mg/dL Urine Ketones (Negative) mg/dL Ur Blood (Man) (Negative) Urine Nitrate (Negative) Urine Bilirubin (Negative) Urine Urobilinogen (<2.0) mg/dL Leukocyte Esterase Rfl (Negative) AIDAN/UL Influenza A (RT-PCR) Negative (Negative) Influenza B (RT-PCR) Negative (Negative) RSV (RT-PCR) Negative (Negative) SARS-CoV-2 RNA (RT-PCR) Negative (Negative) 03/18/24 03/18/24 03/19/24 Range/Units 18:33 18:33 00:51 WBC 5.6 (4.5-10.0) K/mm3 RBC 3.41 L (4.2-5.4) M/mm3 Hgb 10.3 L (12.0-15.0) g/dL Hct 34.0 L (37.0-47.0) % MCV 99.7 (80-100) fl MCH 30.2 (26-34) pg MCHC 30.3 L (32-36) g/dl RDW 12.7 (11.5-14.5) % Plt Count 141 L (150-375) k/mm3 MPV 10.4 (7.4-10.4) fl Immature Gran % (Auto) 0.4 (0-0.5) % Neut % (Auto) 69.4 (45.5-73.1) % Lymph % (Auto) 18.7 (18.3-44.2) % [place] % (Auto) 8.3 (2.6-8.5) % Eos % (Auto) 2.5 (0-4.4) % Baso % (Auto) 0.7 (0.2-1.2) % Lymph # (Auto) 1.04 (0.9-3.2) K/mm3 [place] # (Auto) 0.5 (0.1-0.6) K/mm3 Eos # (Auto) 0.1 (0-0.3) K/mm3 Baso # (Auto) 0.0 (0.0-0.1) K/mm3 Abs Immat Gran (auto) 0.02 (0.00-0.031) K/mm3 Absolute Neuts (auto) 3.9 (1.3-6.7) K/mm3 Absolute Nucleated RBC 0.000 (0.0-0.012) K/mm3 Nucleated RBC % 0.0 (0.0-0.2) % PT 13.0 (11.1-14.7) Seconds INR 0.9 APTT 28.7 (22.3-36.8) Seconds Expiratory Pressure 8 cmH2O Inspiratory Pressure 12 cmH2O Sodium 141 (137-145) mmol/L Potassium 4.6 (3.4-5.0) mmol/L Chloride 99 (98-107) mmol/L Carbon Dioxide > 40 H (22-30) mmol/L Anion Gap (4-12) mmol/L BUN 29 H D (7-17) mg/dL Creatinine 0.80 (0.7-1.0) mg/dL Estim Creat Clear Calc 42 ml/min Estimated GFR > 60 (59 - ) Glucose 207 H (65-110) mg/dL POC Capillary Glucose (65-105) mg/dl Calcium 8.9 (8.4-10.2) mg/dL Total Bilirubin 0.5 (0.2-1.3) mg/dL AST 15 (14-36) U/L ALT 7 (6-35) U/L Alkaline Phosphatase 73 (38-126) U/L Troponin I < 0.012 Cancelled (0.000-0.034) ng/mL NT-Pro-B Natriuret Pep (19.9-100) pg/mL Total Protein 6.0 L (6.3-8.2) g/dL Albumin 3.4 L (3.5-5.1) g/dL Lipase 24 (23-300) U/L Urine Color Yellow (Yellow) Urine Appearance Clear (Clear) Urine pH 5.0 (5.0-9.0) Ur Specific [place] 1.024 (1.001-1.035) Urine Protein Negative (Negative) mg/dL Urine Glucose (UA) Negative (Negative) mg/dL Urine Ketones Negative (Negative) mg/dL Ur Blood (Man) Negative (Negative) Urine Nitrate Negative (Negative) Urine Bilirubin Negative (Negative) Urine Urobilinogen 0.2 (<2.0) mg/dL Leukocyte Esterase Rfl Negative (Negative) AIDAN/UL Influenza A (RT-PCR) (Negative) Influenza B (RT-PCR) (Negative) RSV (RT-PCR) (Negative) SARS-CoV-2 RNA (RT-PCR) (Negative) 03/19/24 Range/Units 05:05 WBC (4.5-10.0) K/mm3 RBC (4.2-5.4) M/mm3 Hgb (12.0-15.0) g/dL Hct (37.0-47.0) % MCV (80-100) fl MCH (26-34) pg MCHC (32-36) g/dl RDW (11.5-14.5) % Plt Count (150-375) k/mm3 MPV (7.4-10.4) fl Immature Gran % (Auto) (0-0.5) % Neut % (Auto) (45.5-73.1) % Lymph % (Auto) (18.3-44.2) % [place] % (Auto) (2.6-8.5) % Eos % (Auto) (0-4.4) % Baso % (Auto) (0.2-1.2) % Lymph # (Auto) (0.9-3.2) K/mm3 [place] # (Auto) (0.1-0.6) K/mm3 Eos # (Auto) (0-0.3) K/mm3 Baso # (Auto) (0.0-0.1) K/mm3 Abs Immat Gran (auto) (0.00-0.031) K/mm3 Absolute Neuts (auto) (1.3-6.7) K/mm3 Absolute Nucleated RBC (0.0-0.012) K/mm3 Nucleated RBC % (0.0-0.2) % PT (11.1-14.7) Seconds INR APTT (22.3-36.8) Seconds Expiratory Pressure cmH2O Inspiratory Pressure cmH2O Sodium (137-145) mmol/L Potassium (3.4-5.0) mmol/L Chloride (98-107) mmol/L Carbon Dioxide (22-30) mmol/L Anion Gap (4-12) mmol/L BUN (7-17) mg/dL Creatinine (0.7-1.0) mg/dL Estim Creat Clear Calc ml/min Estimated GFR (59 - ) Glucose (65-110) mg/dL POC Capillary Glucose (65-105) mg/dl Calcium (8.4-10.2) mg/dL Total Bilirubin (0.2-1.3) mg/dL AST (14-36) U/L ALT (6-35) U/L Alkaline Phosphatase (38-126) U/L Troponin I < 0.012 (0.000-0.034) ng/mL NT-Pro-B Natriuret Pep (19.9-100) pg/mL Total Protein (6.3-8.2) g/dL Albumin (3.5-5.1) g/dL Lipase (23-300) U/L Urine Color (Yellow) Urine Appearance (Clear) Urine pH (5.0-9.0) Ur Specific [place] (1.001-1.035) Urine Protein (Negative) mg/dL Urine Glucose (UA) (Negative) mg/dL Urine Ketones (Negative) mg/dL Ur Blood (Man) (Negative) Urine Nitrate (Negative) Urine Bilirubin (Negative) Urine Urobilinogen (<2.0) mg/dL Leukocyte Esterase Rfl (Negative) AIDAN/UL Influenza A (RT-PCR) (Negative) Influenza B (RT-PCR) (Negative) RSV (RT-PCR) (Negative) SARS-CoV-2 RNA (RT-PCR) (Negative) <Corinna Funez, NUCLEAR STATION OPERATOR - Last Filed: 03/19/24 01:51> Lab Results 03/18/24 03/18/24 03/18/24 Range/Units 17:15 18:08 18:32 WBC (4.5-10.0) K/mm3 RBC (4.2-5.4) M/mm3 Hgb (12.0-15.0) g/dL Hct (37.0-47.0) % MCV (80-100) fl MCH (26-34) pg MCHC (32-36) g/dl RDW (11.5-14.5) % Plt Count (150-375) k/mm3 MPV (7.4-10.4) fl Immature Gran % (Auto) (0-0.5) % Neut % (Auto) (45.5-73.1) % Lymph % (Auto) (18.3-44.2) % [place] % (Auto) (2.6-8.5) % Eos % (Auto) (0-4.4) % Baso % (Auto) (0.2-1.2) % Lymph # (Auto) (0.9-3.2) K/mm3 [place] # (Auto) (0.1-0.6) K/mm3 Eos # (Auto) (0-0.3) K/mm3 Baso # (Auto) (0.0-0.1) K/mm3 Abs Immat Gran (auto) (0.00-0.031) K/mm3 Absolute Neuts (auto) (1.3-6.7) K/mm3 Absolute Nucleated RBC (0.0-0.012) K/mm3 Nucleated RBC % (0.0-0.2) % PT (11.1-14.7) Seconds INR APTT (22.3-36.8) Seconds Expiratory Pressure cmH2O Inspiratory Pressure cmH2O Sodium (137-145) mmol/L Potassium (3.4-5.0) mmol/L Chloride (98-107) mmol/L Carbon Dioxide (22-30) mmol/L Anion Gap (4-12) mmol/L BUN (7-17) mg/dL Creatinine (0.7-1.0) mg/dL Estim Creat Clear Calc ml/min Estimated GFR (59 - ) Glucose (65-110) mg/dL POC Capillary Glucose 217 H (65-105) mg/dl Calcium (8.4-10.2) mg/dL Total Bilirubin (0.2-1.3) mg/dL AST (14-36) U/L ALT (6-35) U/L Alkaline Phosphatase (38-126) U/L Troponin I (0.000-0.034) ng/mL NT-Pro-B Natriuret Pep 1980 H (19.9-100) pg/mL Total Protein (6.3-8.2) g/dL Albumin (3.5-5.1) g/dL Lipase (23-300) U/L Urine Color (Yellow) Urine Appearance (Clear) Urine pH (5.0-9.0) Ur Specific [place] (1.001-1.035) Urine Protein (Negative) mg/dL Urine Glucose (UA) (Negative) mg/dL Urine Ketones (Negative) mg/dL Ur Blood (Man) (Negative) Urine Nitrate (Negative) Urine Bilirubin (Negative) Urine Urobilinogen (<2.0) mg/dL Leukocyte Esterase Rfl (Negative) AIDAN/UL Influenza A (RT-PCR) Negative (Negative) Influenza B (RT-PCR) Negative (Negative) RSV (RT-PCR) Negative (Negative) SARS-CoV-2 RNA (RT-PCR) Negative (Negative) 03/18/24 03/18/24 03/19/24 Range/Units 18:33 18:33 00:51 WBC 5.6 (4.5-10.0) K/mm3 RBC 3.41 L (4.2-5.4) M/mm3 Hgb 10.3 L (12.0-15.0) g/dL Hct 34.0 L (37.0-47.0) % MCV 99.7 (80-100) fl MCH 30.2 (26-34) pg MCHC 30.3 L (32-36) g/dl RDW 12.7 (11.5-14.5) % Plt Count 141 L (150-375) k/mm3 MPV 10.4 (7.4-10.4) fl Immature Gran % (Auto) 0.4 (0-0.5) % Neut % (Auto) 69.4 (45.5-73.1) % Lymph % (Auto) 18.7 (18.3-44.2) % [place] % (Auto) 8.3 (2.6-8.5) % Eos % (Auto) 2.5 (0-4.4) % Baso % (Auto) 0.7 (0.2-1.2) % Lymph # (Auto) 1.04 (0.9-3.2) K/mm3 [place] # (Auto) 0.5 (0.1-0.6) K/mm3 Eos # (Auto) 0.1 (0-0.3) K/mm3 Baso # (Auto) 0.0 (0.0-0.1) K/mm3 Abs Immat Gran (auto) 0.02 (0.00-0.031) K/mm3 Absolute Neuts (auto) 3.9 (1.3-6.7) K/mm3 Absolute Nucleated RBC 0.000 (0.0-0.012) K/mm3 Nucleated RBC % 0.0 (0.0-0.2) % PT 13.0 (11.1-14.7) Seconds INR 0.9 APTT 28.7 (22.3-36.8) Seconds Expiratory Pressure 8 cmH2O Inspiratory Pressure 12 cmH2O Sodium 141 (137-145) mmol/L Potassium 4.6 (3.4-5.0) mmol/L Chloride 99 (98-107) mmol/L Carbon Dioxide > 40 H (22-30) mmol/L Anion Gap (4-12) mmol/L BUN 29 H D (7-17) mg/dL Creatinine 0.80 (0.7-1.0) mg/dL Estim Creat Clear Calc 42 ml/min Estimated GFR > 60 (59 - ) Glucose 207 H (65-110) mg/dL POC Capillary Glucose (65-105) mg/dl Calcium 8.9 (8.4-10.2) mg/dL Total Bilirubin 0.5 (0.2-1.3) mg/dL AST 15 (14-36) U/L ALT 7 (6-35) U/L Alkaline Phosphatase 73 (38-126) U/L Troponin I < 0.012 Cancelled (0.000-0.034) ng/mL NT-Pro-B Natriuret Pep (19.9-100) pg/mL Total Protein 6.0 L (6.3-8.2) g/dL Albumin 3.4 L (3.5-5.1) g/dL Lipase 24 (23-300) U/L Urine Color Yellow (Yellow) Urine Appearance Clear (Clear) Urine pH 5.0 (5.0-9.0) Ur Specific [place] 1.024 (1.001-1.035) Urine Protein Negative (Negative) mg/dL Urine Glucose (UA) Negative (Negative) mg/dL Urine Ketones Negative (Negative) mg/dL Ur Blood (Man) Negative (Negative) Urine Nitrate Negative (Negative) Urine Bilirubin Negative (Negative) Urine Urobilinogen 0.2 (<2.0) mg/dL Leukocyte Esterase Rfl Negative (Negative) AIDAN/UL Influenza A (RT-PCR) (Negative) Influenza B (RT-PCR) (Negative) RSV (RT-PCR) (Negative) SARS-CoV-2 RNA (RT-PCR) (Negative) 03/19/24 Range/Units 05:05 WBC (4.5-10.0) K/mm3 RBC (4.2-5.4) M/mm3 Hgb (12.0-15.0) g/dL Hct (37.0-47.0) % MCV (80-100) fl MCH (26-34) pg MCHC (32-36) g/dl RDW (11.5-14.5) % Plt Count (150-375) k/mm3 MPV (7.4-10.4) fl Immature Gran % (Auto) (0-0.5) % Neut % (Auto) (45.5-73.1) % Lymph % (Auto) (18.3-44.2) % [place] % (Auto) (2.6-8.5) % Eos % (Auto) (0-4.4) % Baso % (Auto) (0.2-1.2) % Lymph # (Auto) (0.9-3.2) K/mm3 [place] # (Auto) (0.1-0.6) K/mm3 Eos # (Auto) (0-0.3) K/mm3 Baso # (Auto) (0.0-0.1) K/mm3 Abs Immat Gran (auto) (0.00-0.031) K/mm3 Absolute Neuts (auto) (1.3-6.7) K/mm3 Absolute Nucleated RBC (0.0-0.012) K/mm3 Nucleated RBC % (0.0-0.2) % PT (11.1-14.7) Seconds INR APTT (22.3-36.8) Seconds Expiratory Pressure cmH2O Inspiratory Pressure cmH2O Sodium (137-145) mmol/L Potassium (3.4-5.0) mmol/L Chloride (98-107) mmol/L Carbon Dioxide (22-30) mmol/L Anion Gap (4-12) mmol/L BUN (7-17) mg/dL Creatinine (0.7-1.0) mg/dL Estim Creat Clear Calc ml/min Estimated GFR (59 - ) Glucose (65-110) mg/dL POC Capillary Glucose (65-105) mg/dl Calcium (8.4-10.2) mg/dL Total Bilirubin (0.2-1.3) mg/dL AST (14-36) U/L ALT (6-35) U/L Alkaline Phosphatase (38-126) U/L Troponin I < 0.012 (0.000-0.034) ng/mL NT-Pro-B Natriuret Pep (19.9-100) pg/mL Total Protein (6.3-8.2) g/dL Albumin (3.5-5.1) g/dL Lipase (23-300) U/L Urine Color (Yellow) Urine Appearance (Clear) Urine pH (5.0-9.0) Ur Specific [place] (1.001-1.035) Urine Protein (Negative) mg/dL Urine Glucose (UA) (Negative) mg/dL Urine Ketones (Negative) mg/dL Ur Blood (Man) (Negative) Urine Nitrate (Negative) Urine Bilirubin (Negative) Urine Urobilinogen (<2.0) mg/dL Leukocyte Esterase Rfl (Negative) AIDAN/UL Influenza A (RT-PCR) (Negative) Influenza B (RT-PCR) (Negative) RSV (RT-PCR) (Negative) SARS-CoV-2 RNA (RT-PCR) (Negative) <Nitesh Werner MD - Last Filed: 03/19/24 08:14> ABG Data ABG results: 03/18/24 03/18/24 03/19/24 19:12 22:50 00:51 Puncture Site Right radial Right radial Right radial ABG pH 7.326 L 7.316 L 7.309 L ABG pCO2 70.5 H* 76.3 H* 75.3 H* ABG pO2 128.6 H 144.6 H 144.2 H ABG PO2/FiO2 Ratio 4.02 2.41 3.20 ABG HCO3 36.0 H 38.1 H 37.0 H ABG O2 Saturation 98.2 98.6 98.5 ABG O2 Content 15.4 L 15.6 L 15.2 L ABG Base Excess 8.0 9.5 8.5 A-a Gradient 17.1 199.3 91.0 Oxyhemoglobin 98.3 98.4 98.3 Total Hemoglobin 11.0 L 11.1 L 10.8 L O2 Delivery Device Not Reportable High flow therapy Bipap O2 Liters/Min 3.0 45.0 Not Reportable FiO2 32 60 45 <Corinna Funez, DEDRICK - Last Filed: 03/19/24 01:51> 03/18/24 03/18/24 03/19/24 19:12 22:50 00:51 Puncture Site Right radial Right radial Right radial ABG pH 7.326 L 7.316 L 7.309 L ABG pCO2 70.5 H* 76.3 H* 75.3 H* ABG pO2 128.6 H 144.6 H 144.2 H ABG PO2/FiO2 Ratio 4.02 2.41 3.20 ABG HCO3 36.0 H 38.1 H 37.0 H ABG O2 Saturation 98.2 98.6 98.5 ABG O2 Content 15.4 L 15.6 L 15.2 L ABG Base Excess 8.0 9.5 8.5 A-a Gradient 17.1 199.3 91.0 Oxyhemoglobin 98.3 98.4 98.3 Total Hemoglobin 11.0 L 11.1 L 10.8 L O2 Delivery Device Not Reportable High flow therapy Bipap O2 Liters/Min 3.0 45.0 Not Reportable FiO2 32 60 45 <Nitesh Werner MD - Last Filed: 03/19/24 08:14> Attestation: I personally reviewed and interpreted this ABG as follows: <Corinna Funez APRN - Last Filed: 03/19/24 01:51> Interpretation: Abnormal Labs 03/18/24 03/18/24 03/18/24 17:15 18:32 18:33 RBC 3.41 L Hgb 10.3 L Hct 34.0 L MCHC 30.3 L Plt Count 141 L ABG pH ABG pCO2 ABG pO2 ABG HCO3 ABG O2 Content Total Hemoglobin Carbon Dioxide > 40 H BUN 29 H D Glucose 207 H POC Capillary Glucose 217 H NT-Pro-B Natriuret Pep 1980 H Total Protein 6.0 L Albumin 3.4 L 03/18/24 03/18/24 03/19/24 19:12 22:50 00:51 RBC Hgb Hct MCHC Plt Count ABG pH 7.326 L 7.316 L 7.309 L ABG pCO2 70.5 H* 76.3 H* 75.3 H* ABG pO2 128.6 H 144.6 H 144.2 H ABG HCO3 36.0 H 38.1 H 37.0 H ABG O2 Content 15.4 L 15.6 L 15.2 L Total Hemoglobin 11.0 L 11.1 L 10.8 L Carbon Dioxide BUN Glucose POC Capillary Glucose NT-Pro-B Natriuret Pep Total Protein Albumin <Corinna Funez APRN - Last Filed: 03/19/24 01:51> Imaging Data Attestation: I personally reviewed and interpreted this imaging study as follows: <Corinna Funez APRN - Last Filed: 03/19/24 01:51> Radiologist's impression: Impressions Chest X-Ray 03/18/24 18:18 IMPRESSION: Cardiomegaly, aortic atherosclerosis No active pulmonary disease Pt's CT scan indicated multilobulated cystic lesion in the left ovary, which should be followed up with a contrast enhanced MRI. No other acute abnormalities in the chest, abdomen, or pelvis. <Corinna Funez APRN - Last Filed: 03/19/24 01:51> Critical Care Time Critical Care Time Critical Care Time: Yes <Nitesh Werner MD - Last Filed: 03/19/24 08:14> Total Critical Care Time: 105 <Nitesh Werner MD - Last Filed: 03/19/24 08:14> Discharge Plan Discharge Clinical Impression: Acute hypercapnic respiratory failure, Hypoxic respiratory failure, COPD exacerbation <Corinna Funez APRN - Last Filed: 03/19/24 01:51> Patient Disposition: Still a Patient <Corinna Funez APRN - Last Filed: 03/19/24 01:51> Condition: Serious <Corinna Funez APRN - Last Filed: 03/19/24 01:51> Time of Disposition: 02:00 <Corinna Funez APRN - Last Filed: 03/19/24 01:51> 02:00 <Nitesh Werner MD - Last Filed: 03/19/24 08:14>
[2024-03-18 18:00] VITALS: BP 143/52; PULSE 58; RESP 16; O2SAT 99
--- NOTE | 2024-03-18 18:05 | PC.NURSE ---
Pt to CT. Will obtain labs when pt. returns.
[2024-03-18 18:44] LABS: Basophils Percent Auto 0.7 % (0.2-1.2); Eosinophils Absolute Auto 0.1 K/mm3 (0-0.3); Eosinophils Percent Auto 2.5 % (0-4.4); Hemoglobin 10.3 g/dL (12.0-15.0); Immature Granulocyte Absolute 0.02 K/mm3 (0.00-0.031); Immature Granulocyte Percent A 0.4 % (0-0.5); Lymphocytes Absolute Auto 1.04 K/mm3 (0.9-3.2); Lymphocytes Percent Auto 18.7 % (18.3-44.2); Mean Corpuscular HGB Conc 30.3 g/dl (32-36); Mean Corpuscular Hemoglobin 30.2 pg (26-34); Mean Corpuscular Volume 99.7 fl (80-100); Mean Platelet Volume 10.4 fl (7.4-10.4); Monocytes Absolute Auto 0.5 K/mm3 (0.1-0.6); Monocytes Percent Auto 8.3 % (2.6-8.5); Neutrophils Absolute Auto 3.9 K/mm3 (1.3-6.7); Neutrophils Percent Auto 69.4 % (45.5-73.1); Platelet Count Result 141 k/mm3 (150-375); Red Blood Count 3.41 M/mm3 (4.2-5.4); Red Cell Distribution Width 12.7 % (11.5-14.5); White Blood Count 5.6 K/mm3 (4.5-10.0)
[2024-03-18 18:45] LABS: Add Urine Microscopic? NO; Appearance Urine Clear (Clear); Bilirubin Urine Negative (Negative); Blood Urine Negative (Negative); Color Urine Yellow (Yellow); Glucose Urine UA Negative (Negative); Ketones Urine Negative (Negative); Leukocyte Esterase Ur Negative LEU/UL (Negative); Nitrate Urine Negative (Negative); Protein Urine Negative (Negative); Specific Grav Ur 1.024 (1.001-1.035); Urobilinogen Urine 0.2 mg/dL (<2.0)
[2024-03-18 18:51] LABS: Influenza A QL RT-PCR Negative (Negative); Influenza B QL RT-PCR Negative (Negative); RSV RNA, RT-PCR Negative (Negative); SARS-CoV-2 RNA PCR Negative (Negative)
[2024-03-18 18:55] LABS: INR 0.9
[2024-03-18 18:56] LABS: Alanine Aminotransferase 7 U/L (6-35); Albumin Level 3.4 g/dL (3.5-5.1); Alkaline Phosphatase 73 U/L (38-126); Aspartate Amino Transferase 15 U/L (14-36); Bilirubin,Total 0.5 mg/dL (0.2-1.3); Blood Urea Nitrogen 29 mg/dL (7-17); Calcium 8.9 mg/dL (8.4-10.2); Carbon Dioxide > 40 mmol/L (22-30); Chloride 99 mmol/L (98-107); Estimated CRCL calculation 42 ml/min; Estimated Glomerular Filt Rate > 60; Glucose 207 mg/dL (65-110); Lipase 24 U/L (23-300); Partial Thromboplastin Time 28.7 Seconds (22.3-36.8); Potassium 4.6 mmol/L (3.4-5.0); Sodium 141 mmol/L (137-145)
[2024-03-18 19:06] LABS: Troponin I < 0.012 ng/mL (0.000-0.034)
[2024-03-18 19:26] LABS: Alveolar/Arterial O2 Gradient 17.1 mmHg; Fractional Inspired Oxygen 32 %; Oxygen Content ABG 15.4 %vol (16.0-22.0); Oxygen Saturation ABG 98.2 % (95.0-100.0); Oxyhemoglobin 98.3 % THb (90.0-100.0); PO2 ABG 128.6 mmHg (80.0-100.0); PO2 FiO2 Ratio Arterial Blood 4.02 %; pH ABG 7.326 (7.350-7.450)
[2024-03-18 19:27] LABS: Modified Allen's Test Pass; PCO2 ABG 70.5 mmHg (35.0-45.0); Site Drawn RIGHT RADIAL
[2024-03-18 20:36] LABS: NT Pro B Type Natriuretic Pept 1980 pg/mL (19.9-100)
--- NOTE | 2024-03-18 20:56 | PC.NURSE ---
Son at bedside speaking with WASTEWATER OPERATOR about pt. plan for care. Pt. refusing to make any decisions without son present.
[2024-03-18 22:16] VITALS: O2SAT 96
[2024-03-18] MEDS: ACETAMINOPHEN 325 MG TABLET 650 MG PO (22:39)
[2024-03-18] MEDS: FUROSEMIDE INJ 40 MG/4 ML VIAL IV PUSH (22:40)
[2024-03-18] MEDS: LORazepam INJ (*CRX) 2 MG/ML VIAL 1 MG IV PUSH (22:44)
--- NOTE | 2024-03-18 22:46 | PC.NURSE ---
Pt on high flow nasal cannula. 02 dropped to 74% with a good pleth. Pt. denies current SOB. Speech is clear. RT and Dr. Avila to bedside. Settings of high flow adjusted by RT. After intervention, 02 99% with good pleth. Pt to go to CT on a monitor with IMAN Matta at bedside.
[2024-03-18 23:04] LABS: Alveolar/Arterial O2 Gradient 199.3 mmHg; Base Excess ABG 9.5 mEq/l (+/-2.0); Fractional Inspired Oxygen 60 %; HCO3 ABG 38.1 mEq/l (22.0-26.0); Oxygen Content ABG 15.6 %vol (16.0-22.0); Oxygen Saturation ABG 98.6 % (95.0-100.0); Oxyhemoglobin 98.4 % THb (90.0-100.0); PO2 ABG 144.6 mmHg (80.0-100.0); PO2 FiO2 Ratio Arterial Blood 2.41 %; Total Hemoglobin 11.1 g/dL (12.0-18.0); pH ABG 7.316 (7.350-7.450)
[2024-03-18 23:06] LABS: Device HIGH FLOW THERAPY; Modified Allen's Test Pass; PCO2 ABG 76.3 mmHg (35.0-45.0); Site Drawn RIGHT RADIAL
[2024-03-18 23:50] VITALS: BP 131/55; PULSE 60; RESP 15; RESP 17; O2SAT 100; O2SAT 98
[2024-03-18] MEDS: SODIUM CHLORIDE 0.9% IV 1,000 ML 500 ML IV CONT (23:50)
[2024-03-18 23:54] VITALS: PULSE 61
[2024-03-18 23:57] VITALS: PULSE 60; RESP 19; O2SAT 96
[2024-03-19] VITALS (22 sets, daily range): BP systolic 106–151; BP diastolic 40–57; PULSE 20–79; RESP 13–24; TEMP 36.4–37.1; O2SAT 96–100; BMI 25.9
[2024-03-19] MEDS: IPRATROPIUM 0.5 MG/ALBUTEROL SULFATE 2.5 MG AMPUL.NEB 3 ML 6 ML INHALATION (00:31)
[2024-03-19] MEDS: methylPREDNISolone SOD SUCC 125 MG VIAL IV PUSH (00:40)
[2024-03-19 00:57] LABS: Base Excess ABG 8.5 mEq/l (+/-2.0); Fractional Inspired Oxygen 45 %; Oxygen Content ABG 15.2 %vol (16.0-22.0); Oxygen Saturation ABG 98.5 % (95.0-100.0); Oxyhemoglobin 98.3 % THb (90.0-100.0); PO2 ABG 144.2 mmHg (80.0-100.0); Total Hemoglobin 10.8 g/dL (12.0-18.0); pH ABG 7.309 (7.350-7.450)
--- NOTE | 2024-03-19 01:01 | P.HP_ITS ---
H&P: HPI History of Present Illness Date/Time: 03/19/24 01:01 Chief Complaint: altered mental status Narrative: This is an 83-year-old female with past medical history significant for chronic hypoxic respiratory failure on supplemental oxygen by nasal cannula at home 3 L, type diabetes mellitus, insulin-dependent, paroxysmal atrial fibrillation, chronic systolic heart failure, GERD. patient was brought to the emergency room for evaluation due to concerns for altered mental status, shortness of breath for the last 4-5 days patient had been using her inhaler more than usual with no improvement. Upon arriving to emergency room patient noted to be in respiratory distress initially refused BiPAP. Preliminary workup was significant for ABG with pH of 7.32 pCO2 of 70 PO2 128. tested negative for influenza type A influenza type B COVID and RSV Patient was started on Airvo and transitioned to BiPAP. Patient has been admitted for further evaluation management and treatment XR chest 2V DATE: 03/18/2024 18:17 INDICATION: Lower lobe crackles TECHNIQUE: AP and lateral chest COMPARISON: 01/04/2024 AP and lateral chest FINDINGS: Cardiomegaly. Aortic arch calcification, mild aortic unfolding. No hilar or mediastinal enlargement. There is mild elevation of the right diaphragm. No pulmonary infiltrate or consolidation, pleural effusion or pulmonary vascular congestion or pneumothorax is detected. Diffuse osteopenia. Bilateral chronic rotator cuff atrophy. IMPRESSION: Cardiomegaly, aortic atherosclerosis No active pulmonary disease Review of Systems Review of Systems: ROS unobtainable: Yes unobtainable due to medical condition ( respiratory distress) [facility] Past Medical History Medical History Acquired hypertriglyceridemia Acute psychosis Age related osteoporosis Aortic atherosclerosis Asthma B12 deficiency C. difficile colitis Chronic anticoagulation Chronic systolic (congestive) heart failure Gastroesophageal reflux disease GERD (gastroesophageal reflux disease) Gout Hepatic steatosis Hypertension Macular degeneration Nonexudative age-related macular degeneration, right eye, intermediate dry stage Overactive bladder Surgical History Surgical History History of cholecystectomy History of repair of rotator cuff Family History Family History Father Asthma Cerebrovascular accident Family history of diabetes mellitus in first degree relative Sibling Family history of diabetes mellitus in first degree relative Family history of malignant neoplasm of urinary bladder Mother Family history of heart disease in male family member before age 55 Other Family history of arthritis Hypertension Social History Social History Social History: Surrogate medical decision maker: Julio Ventura, son. Code status: Full code. Smoking packs per day: 1 Smoking cigarettes per day: 20.0 Years smoked: 15 Smoking pack-years: 15.00 Smoking status: Never smoker Second hand tobacco smoke exposure: Yes Alcohol intake: never Substance use: never Substance use type: does not use Do You Feel Safe in your Home?: Yes Lack of Transportation: YES Lack of Food: Never True Current Housing: I Have Housing Concerned About Future Housing: No Difficulty Paying Gas/Electric Bills: No Difficulty Paying for Meds: No Currently Unemployed: No Education: Decline to Answer Difficulty w/ Childcare or Family Care: No Living arrangements: with family Additional living arrangements comments: Lives in [place]. Son Julio stays with her. Occupation/Education: retired Spiritual care concerns: No Meds Home Medications and Allergies Home Medications Medication Instructions Recorded Confirmed Type acetaminophen 500 mg tablet 650 mg PO Q6H PRN pain 1-3 04/02/23 03/18/24 History (Tylenol Extra Strength) pantoprazole 40 mg tablet,delayed 40 mg PO QAM #90 tabs 08/08/23 03/18/24 Rx release pen needle, diabetic 31 gauge x #150 ea 08/08/23 03/18/24 Rx 5/16 blood-glucose meter,continuous #1 ea 09/01/23 03/18/24 Rx (FreeStyle Calixto 3 [place]) insulin aspart (niacinamide) 2 - 4 unit subcut [facility] 09/30/23 03/18/24 History (U-100) 100 unit/mL subcutaneous solution (Fiasp U-100 Insulin) ferrous sulfate 142 mg (45 mg 142 mg PO DAILY@0800 #30 tabs 10/06/23 03/18/24 Rx iron) tablet,extended release (Slow Release Iron) cyanocobalamin (vitamin B-12) 1,000 mcg PO QAM #30 tabs 12/24/23 03/18/24 Rx 1,000 mcg tablet (Vitamin B-12) folic acid 1 mg tablet 1 mg PO DAILY #30 tabs 12/24/23 03/18/24 Rx metoprolol tartrate 75 mg tablet 75 mg PO BID #180 tabs 01/16/24 03/18/24 Rx hydrocortisone acetate 25 mg 25 mg RECTAL ONCE PRN hemmorhoids 01/18/24 03/18/24 History rectal suppository (Anusol-HC) tolnaftate 1 % topical powder 1 applic topical Q12HR PRN 01/18/24 03/18/24 History irritation doxazosin 8 mg tablet 8 mg PO DAILY #90 tabs 02/06/24 03/18/24 Rx blood-glucose sensor (FreeStyle #4 ea 02/10/24 03/18/24 Rx Calixto 3 Sensor device) sacubitril 24 mg-valsartan 26 mg 1 tablet PO Q12HR #60 tabs 02/10/24 03/18/24 Rx tablet (Entresto) sucralfate 100 mg/mL oral 1,000 mg (10 mL) PO ACHS PRN GERD 02/23/24 03/18/24 Rx suspension #420 mL furosemide 40 mg tablet 40 mg PO DAILY #90 tabs 03/01/24 03/18/24 Rx spironolactone 25 mg tablet 25 mg PO DAILY #90 tabs 03/01/24 03/18/24 Rx ondansetron 4 mg disintegrating 4 mg PO Q8H #20 tabs 03/15/24 03/18/24 Rx tablet albuterol sulfate 90 mcg/actuation 2 puff inhalation Q2H PRN sob, 03/16/24 03/18/24 Rx aerosol inhaler (Ventolin HFA) wheezing #8.5 grams dextromethorphan-guaifenesin 10 10 ml PO Q4-6H PRN Cough 03/18/24 03/18/24 History mg-100 mg/5 mL oral liquid (Safe Tussin DM) hydralazine 25 mg tablet See Rx Instructions .Route .COMPLEX 03/18/24 03/18/24 History insulin glargine 100 unit/mL (3 10 unit subcut QPM 03/18/24 03/18/24 History mL) subcutaneous pen (Basaglar KwikPen U-100 Insulin) Allergies Allergy/AdvReac Type Severity Reaction Status Date / Time Penicillins Allergy Severe HIVES Verified 03/18/24 22:09 hydrocodone AdvReac Severe SEVERE GI Verified 03/18/24 22:09 UPSET, N/V nitrofurantoin AdvReac Severe Swelling Verified 03/18/24 22:09 propoxyphene AdvReac Severe GI UPSET Verified 03/18/24 22:09 acetaminophen AdvReac Unknown Unknown Verified 03/18/24 22:09 [From Darvocet-N] adhesive tape AdvReac Unknown Unknown Verified 03/18/24 22:09 amlodipine AdvReac Unknown Unknown Verified 03/18/24 22:09 glimepiride AdvReac Unknown Unknown Verified 03/18/24 22:09 metformin AdvReac Unknown Unknown Verified 03/18/24 22:09 omeprazole [From Prilosec] AdvReac Unknown Unknown Verified 03/18/24 22:09 pioglitazone AdvReac Unknown Unknown Verified 03/18/24 22:09 simvastatin [From Zocor] AdvReac Unknown Unknown Verified 03/18/24 22:09 Vital Signs Vital Signs - 24 hr 03/18/24 16:20 03/18/24 16:20 03/18/24 18:00 Temperature 97.1 F L Pulse Rate 61 58 L Respiratory Rate 14 16 Blood Pressure 135/72 143/52 H Pulse Oximetry 97 99 Oxygen Delivery Nasal Cannula Oxygen Flow Rate 3 Fraction of Inspired Oxygen 03/18/24 22:16 03/18/24 23:50 03/18/24 23:54 Temperature Pulse Rate 60 61 Respiratory Rate 15 Blood Pressure 131/55 L Pulse Oximetry 96 100 Oxygen Delivery High Flow Therapy with Na Oxygen Flow Rate 45 Fraction of Inspired Oxygen 21 03/18/24 23:57 03/19/24 00:36 Temperature Pulse Rate 60 57 L Respiratory Rate 19 13 Blood Pressure Pulse Oximetry 96 Oxygen Delivery BiPAP Oxygen Flow Rate Fraction of Inspired Oxygen Exam Narrative: patient is laying in a stretcher Const: General: comfortable, no acute distress, well developed, alert, awake, ill appearing, tired appearing and average body habitus Nutritional Appearance: average body habitus Orientation/consciousness: patient oriented x3 HENMT: Head: normal to inspection, normocephalic and atraumatic Ears: hearing grossly normal bilaterally Face/Nose/Sinus: normal facial exam Face and sinus: normal facial exam Eyes: General: appearance normal, both eyes and all related structures Pupils: Equal, round and reactive pupils present EOM: EOMs intact bilaterally Neck: Neck: full ROM, no lymphadenopathy and no JVD Thyroid: thyroid normal Lymphatic: no lymphadenopathy noted Resp: Effort & Inspection: normal respiratory effort and able to speak in complete sentences Auscultation: rhonchi, wheezes and diminished lung sounds Cardio: Jugular venous distension: no JVD Rate: regular rate Rhythm: regular rhythm Heart sounds: S1 normal heart sound present and S2 normal heart sound present GI: GI Palp: Yes Soft to palpation and Yes No hepatosplenomegaly present : General: Yes deferred Skin: Rashes: no rashes Wounds: no wounds Neuro: General: patient oriented x3 and CN's II-XI intact bilaterally Cranial nerves: Yes CN's II-XII intact bilaterally and Yes Equal, round and reactive pupils present Cognition (Neuro): normal cognition Speech: normal speech Gait exam (Neuro): Unable to assess gait Motor exam (neuro): 5/5 motor strength present throughout Extrem: General: normal to inspection, full ROM, no joint enlargement and no pedal edema H&P: Results Labs Labs: Short CBC 03/18/24 Range/Units 18:33 WBC 5.6 (4.5-10.0) K/mm3 Hgb 10.3 L (12.0-15.0) g/dL Hct 34.0 L (37.0-47.0) % Plt Count 141 L (150-375) k/mm3 BMP 03/18/24 18:33 Sodium 141 Potassium 4.6 Chloride 99 Carbon Dioxide > 40 H BUN 29 H D Creatinine 0.80 Glucose 207 H Calcium 8.9 Cardiac Enzymes 03/18/24 03/18/24 Range/Units 18:33 18:33 Troponin I < 0.012 Cancelled (0.000-0.034) ng/mL Liver Function 03/18/24 Range/Units 18:33 Total Bilirubin 0.5 (0.2-1.3) mg/dL AST 15 (14-36) U/L ALT 7 (6-35) U/L Alkaline Phosphatase 73 (38-126) U/L Albumin 3.4 L (3.5-5.1) g/dL Urine 03/18/24 Range/Units 18:33 Urine Color Yellow (Yellow) Urine Appearance Clear (Clear) Urine pH 5.0 (5.0-9.0) Ur Specific [place] 1.024 (1.001-1.035) Urine Protein Negative (Negative) mg/dL Urine Glucose (UA) Negative (Negative) mg/dL Assessment and Plan Assessment and plan (1) Acute on chronic respiratory failure with hypoxia and hypercapnia: Code(s): J96.21 - Acute and chronic respiratory failure with hypoxia; J96.22 - Acute and chronic respiratory failure with hypercapnia Status: Acute Assessment and Plan: admit to IMU currently on BiPAP supportive care (2) Paroxysmal atrial fibrillation: Code(s): I48.0 - Paroxysmal atrial fibrillation Status: Acute Assessment and Plan: continue to monitor on continuous telemetry (3) Generalized weakness: Code(s): R53.1 - Weakness Status: Acute Assessment and Plan: main likely secondary to chronic illness (4) Diastolic congestive heart failure: Code(s): I50.30 - Unspecified diastolic (congestive) heart failure Status: Acute Assessment and Plan: monitor daily intake and output appears euvolemic (5) Age-related osteoporosis without current pathological fracture: Code(s): M81.0 - Age-related osteoporosis without current pathological fracture Status: Acute Assessment and Plan: follow-up in outpatient setting (6) Hypertension: Qualifiers: Hypertension type: unspecified Qualified Code(s): I10 - Essential (primary) hypertension Code(s): I10 - Essential (primary) hypertension Status: Chronic Assessment and Plan: resume home meds as needed (7) T2DM (type 2 diabetes mellitus): Code(s): E11.9 - Type 2 diabetes mellitus without complications Status: Acute Assessment and Plan: resume home meds continue to monitor Hospitalist MIPS Advance Care Plan I have confirmed that the patient's Advanced Care Plan is present, code status is documented, or surrogate decision maker is listed in patient medical record.: Yes Medication Reconciliation I have utilized all available resources to obtain, update and review the patients current medications (includes all prescriptions, OTC, herbals, cannabis, and nutritional supplements).: Yes
[2024-03-19 01:04] LABS: PCO2 ABG 75.3 mmHg (35.0-45.0)
[2024-03-19 01:05] LABS: Device BIPAP; Expiratory Pressure 8 cmH2O; Inspiratory Pressure 12 cmH2O; Modified Allen's Test Pass; Site Drawn RIGHT RADIAL
--- NOTE | 2024-03-19 03:04 | ADMGEN ---
This patient, Constanza Ventura, was admitted to IMU Room 213-01. Patient/family oriented to hospital policies and general routines including ID bracelet, bed and alarms, visiting hours, pain management, procedures, bathroom and other care routines, personal items, smoking policy, room service/diet, and visiting hours. Information on how to activate the Rapid Response Team has been discussed. Patient/Family are encouraged to report perceived risks to care and to ask questions if they do not understand what they are told or what they should do.
--- NOTE | 2024-03-19 03:11 | PC.NURSE ---
Admission report provided to IMAN Peace.
[2024-03-19 06:12] LABS: Troponin I < 0.012 ng/mL (0.000-0.034)
[2024-03-19 08:53] LABS: Basophils Percent Auto 0.4 % (0.2-1.2); Eosinophils Percent Auto 0.4 % (0-4.4); Hematocrit 33.9 % (37.0-47.0); Hemoglobin 10.2 g/dL (12.0-15.0); Immature Granulocyte Absolute 0.02 K/mm3 (0.00-0.031); Immature Granulocyte Percent A 0.4 % (0-0.5); Lymphocytes Absolute Auto 0.63 K/mm3 (0.9-3.2); Lymphocytes Percent Auto 11.3 % (18.3-44.2); Mean Corpuscular HGB Conc 30.1 g/dl (32-36); Mean Corpuscular Hemoglobin 30.5 pg (26-34); Mean Corpuscular Volume 101.5 fl (80-100); Mean Platelet Volume 10.9 fl (7.4-10.4); Monocytes Absolute Auto 0.1 K/mm3 (0.1-0.6); Monocytes Percent Auto 1.8 % (2.6-8.5); Neutrophils Absolute Auto 4.8 K/mm3 (1.3-6.7); Neutrophils Percent Auto 85.7 % (45.5-73.1); Platelet Count Result 148 k/mm3 (150-375); Red Blood Count 3.34 M/mm3 (4.2-5.4); Red Cell Distribution Width 12.6 % (11.5-14.5); White Blood Count 5.6 K/mm3 (4.5-10.0)
--- NOTE | 2024-03-19 09:17 | ADMGEN ---
This patient, Constanza Ventura, was admitted to IMU Room 213-01 on 03/19/24 at 0257. Patient/family oriented to hospital policies and general routines including ID bracelet, bed and alarms, visiting hours, pain management, procedures, bathroom and other care routines, personal items, smoking policy, room service/diet, and visiting hours. Information on how to activate the Rapid Response Team has been discussed. Patient/Family are encouraged to report perceived risks to care and to ask questions if they do not understand what they are told or what they should do.
[2024-03-19 09:18] LABS: Anion Gap 3 mmol/L (4-12); Blood Urea Nitrogen 26 mg/dL (7-17); Calcium 8.6 mg/dL (8.4-10.2); Carbon Dioxide 36 mmol/L (22-30); Chloride 101 mmol/L (98-107); Estimated CRCL calculation 39 ml/min; Estimated Glomerular Filt Rate > 60; Glucose 210 mg/dL (65-110); Potassium 4.7 mmol/L (3.4-5.0); Sodium 140 mmol/L (137-145)
[2024-03-19 09:53] LABS: Glucose Point of Care 312 mg/dl (65-105)
[2024-03-19] MEDS: hydrALAZINE HCL 25 MG TABLET BY MOUTH (10:21)
[2024-03-19] MEDS: DOXAZOSIN MESYLATE 4 MG TABLET 8 MG PO (10:21)
[2024-03-19] MEDS: SACUBITRIL/VALSARTAN 24-26 MG TABLET 1 TAB PO ×2 (10:21→20:38)
[2024-03-19] MEDS: METOPROLOL TARTRATE 25 MG TABLET 75 MG PO ×2 (10:21→20:38)
[2024-03-19] MEDS: PANTOPRAZOLE 40 MG TABLET PO (10:22)
[2024-03-19] MEDS: hydrALAZINE 12.5 MG TABLET PO (10:22)
[2024-03-19] MEDS: INSULIN ASPART (*BKC) 100 UNITS/ML SUB-Q ×2 (10:49→12:42)
[2024-03-19] MEDS: ACETAMINOPHEN 325 MG TABLET 650 MG PO (10:56)
--- NOTE | 2024-03-19 13:53 | PM.IMPN ---
Progress Note: A&P Assessment and Plan (1) Acute on chronic respiratory failure with hypoxia and hypercapnia: Code(s): J96.21 - Acute and chronic respiratory failure with hypoxia; J96.22 - Acute and chronic respiratory failure with hypercapnia Status: Acute Assessment and Plan: Patient presents with weakness, constipation 9 urine retention. She is also having body aches. She denied increasing shortness of breath on admission.re patient was found to have hypoxic respiratory failure with SpO2 of 80% despite high-flow nasal cannula. She is noted to have CO2 retention with ABG showing 7.33/71/128 on 3 L. Patient declined BiPAP initially but then this was able to be placed. Repeat ABG showed no significant improvement (7.31/75/144 bipap)but she was clinically better. COVID, RSV and influenza PCR negative. Chest CT showing atelectasis. Weaned off BiPAP now. AOx4. WeanO2 to keep SpO2 >92% Adjust bipap settings. Continue Bipap at night and with naps. (2) Altered mental status: Code(s): R41.82 - Altered mental status, unspecified Status: Resolved Assessment and Plan: Patient was brought to emergency room for altered mental status per admitting note a patient was aware enough to refuse BiPAP. Patient was alert and orient x3 by ER evaluation. Unclear patient was altered on admission. No focal findings at this time. Will monitor clinically for now. (3) Paroxysmal atrial fibrillation: Code(s): I48.0 - Paroxysmal atrial fibrillation Status: Acute Assessment and Plan: No EKG on admission but tele showing NSR On metoprolol for rate control Not on anticoagulation Monitor (4) Generalized weakness: Code(s): R53.1 - Weakness Status: Acute Assessment and Plan: Related to above. Start PT/OT (5) Diastolic congestive heart failure: Code(s): I50.30 - Unspecified diastolic (congestive) heart failure Status: Acute Assessment and Plan: Echo in September showing EF>70%, Grade I diastolic dysfunction CT chest does not show pulmonary edema. BNP 1979 which is lower then last admission. Clinically euvolemic Resume lasix (6) Hypertension: Qualifiers: Hypertension type: unspecified Qualified Code(s): I10 - Essential (primary) hypertension Code(s): I10 - Essential (primary) hypertension Status: Chronic Assessment and Plan: Patient's blood pressure was reviewed on 03/19 Blood pressure remains well controlled. Add lasix and decrease hydralazine dose. Will continue to monitor (7) T2DM (type 2 diabetes mellitus): Code(s): E11.9 - Type 2 diabetes mellitus without complications Status: Acute Assessment and Plan: The patient's blood glucose was reviewed on 03/19 Glucose remains well controlled. Start AccuCheks covering with sliding scale. Hypoglycemia protocol available as needed. Continue to monitor Plan DVT prophylaxis - SCDs Code status - full Subjective Date/time seen: 03/19/24 13:53 Interval history: 83yo female with chronic hypoxic respiratory failure on 3 L, DM, pAFib, CHF and GERD here for altered mental status and shortness of breath for the last 4-5 days. Patient slept okay. She did wear her BiPAP. She does not use narcotics at home. No alcohol or drug use. No benzodiazepines. She lives at home with her son. Exam Narrative: AF 98.0 106/41 20 70 99% 3L Gen - NARD Chest -dry bibasilar crackles otherwise clear CV - RRR S1/S2. Telemetry showing NSR with no significant dysrhythmias Abd - Soft, NT/ND, Positive BS Ext - No pedal edema Neuro - Alert and oriented x4. Nonfocal exam. Hard of hearing Psych - Nml mood and affect Skin - Warm and dry Objective Data Vital Signs Vital Signs: Vital Signs - 24 hr 03/18/24 16:20 03/18/24 16:20 03/18/24 18:00 Temperature 97.1 F L Pulse Rate 61 58 L Respiratory Rate 14 16 Blood Pressure 135/72 143/52 H Pulse Oximetry 97 99 Oxygen Delivery Nasal Cannula Oxygen Flow Rate 3 Fraction of Inspired Oxygen 03/18/24 22:16 03/18/24 23:50 03/18/24 23:54 Temperature Pulse Rate 60 61 Respiratory Rate 15 Blood Pressure 131/55 L Pulse Oximetry 96 100 Oxygen Delivery High Flow Therapy with Na Oxygen Flow Rate 45 Fraction of Inspired Oxygen 21 03/18/24 23:57 03/19/24 00:36 03/19/24 01:08 Temperature Pulse Rate 60 57 L 59 L Respiratory Rate 19 13 17 Blood Pressure Pulse Oximetry 96 96 Oxygen Delivery BiPAP BiPAP Oxygen Flow Rate Fraction of Inspired Oxygen 03/19/24 01:54 03/18/24 23:50 03/19/24 00:00 Temperature Pulse Rate 57 L 60 58 L Respiratory Rate 19 17 16 Blood Pressure 119/57 L 131/55 L 126/54 L Pulse Oximetry 100 98 99 Oxygen Delivery Oxygen Flow Rate Fraction of Inspired Oxygen 03/19/24 02:38 03/19/24 03:58 03/19/24 04:00 Temperature 97.6 F Pulse Rate 55 L 56 L 56 L Respiratory Rate 21 H 19 19 Blood Pressure 132/55 L 151/56 H Pulse Oximetry 100 100 100 Oxygen Delivery BiPAP Oxygen Flow Rate Fraction of Inspired Oxygen 21 03/19/24 04:00 03/19/24 03:05 03/19/24 06:00 Temperature Pulse Rate 54 L 63 79 Respiratory Rate 23 H Blood Pressure Pulse Oximetry 97 Oxygen Delivery BiPAP Oxygen Flow Rate Fraction of Inspired Oxygen 03/19/24 07:48 03/19/24 08:00 03/19/24 12:00 Temperature 97.6 F 98 F Pulse Rate 70 20 L Respiratory Rate 24 H 20 Blood Pressure 140/56 L 106/41 L Pulse Oximetry 98 97 99 Oxygen Delivery Nasal Cannula Oxygen Flow Rate 3 Fraction of Inspired Oxygen Intake/Output Intake/Output: Intake & Output 03/16/24 03/17/24 03/18/24 03/19/24 23:59 23:59 23:59 23:59 Intake Total 0 Output Total 75 Balance -75 0 Meds/Results Medications: Active Medications Generic Name Dose Route Start Last Admin Trade Name Freq PRN Reason Stop Dose Admin Acetaminophen 650 mg 03/19/24 03:41 03/19/24 10:56 Acetaminophen 325 Mg Tablet PO 650 mg Q6H PRN Administration pain 1-3 Doxazosin Mesylate 8 mg 03/19/24 09:00 03/19/24 10:21 Doxazosin Mesylate 4 Mg Tablet PO 8 mg DAILY ROSEMARIE Administration Guaifenesin/Dextromethorphan 10 ml 03/19/24 03:41 Guaifenesin/Dextromethorphan 10 Ml Udc PO Q4-6H PRN Cough Hydralazine HCl 25 mg 03/19/24 09:00 03/19/24 12:47 Hydralazine Hcl 25 Mg Tablet BY MOUTH Not Given TID ROSEMARIE Hydralazine HCl 12.5 mg 03/19/24 09:00 03/19/24 12:47 Hydralazine 12.5 Mg Tablet PO Not Given TID ROSEMARIE Insulin Aspart 2 - 4 units 03/19/24 08:00 03/19/24 12:42 Insulin Aspart (*Bkc) 100 Units/Ml SUB-Q 04/18/24 07:59 4 units WMHS ROSEMARIE Administration Insulin Glargine 10 units 03/19/24 18:00 Insulin Glargine (*Bkc) 100 Units/Ml SUB-Q QPM ROSEMARIE Metoprolol Tartrate 75 mg 03/19/24 09:00 03/19/24 10:21 Metoprolol Tartrate 25 Mg Tablet PO 75 mg Q12HR ROSEMARIE Administration Pantoprazole Sodium 40 mg 03/19/24 09:00 03/19/24 10:22 Pantoprazole 40 Mg Tablet PO 40 mg QAM ROSEMARIE Administration Sacubitril/Valsartan 1 tab 03/19/24 09:00 03/19/24 10:21 Sacubitril/Valsartan 24-26 Mg Tablet PO 1 tab Q12HR ROSEMARIE Administration Sucralfate 1,000 mg 03/19/24 03:41 Sucralfate Susp 100 Mg/Ml 10 Ml Udc PO ACHS PRN GERD Radiology Results: ITS Impressions Chest X-Ray 03/18/24 18:18 IMPRESSION: Cardiomegaly, aortic atherosclerosis No active pulmonary disease Chest/Abdomen/Pelvis CT 03/19/24 06:55 IMPRESSION: 1. 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 Labs Labs: Laboratory Results - last 24 hr 03/18/24 03/18/24 03/18/24 17:15 18:08 18:32 WBC RBC Hgb Hct MCV MCH MCHC RDW Plt Count MPV Immature Gran % (Auto) Neut % (Auto) Lymph % (Auto) [place] % (Auto) Eos % (Auto) Baso % (Auto) Lymph # (Auto) [place] # (Auto) Eos # (Auto) Baso # (Auto) Abs Immat Gran (auto) Absolute Neuts (auto) Absolute Nucleated RBC Nucleated RBC % PT INR APTT Puncture Site ABG pH ABG pCO2 ABG pO2 ABG PO2/FiO2 Ratio ABG HCO3 ABG O2 Saturation ABG O2 Content ABG Base Excess A-a Gradient Oxyhemoglobin Total Hemoglobin O2 Delivery Device O2 Liters/Min FiO2 Expiratory Pressure Inspiratory Pressure Sodium Potassium Chloride Carbon Dioxide Anion Gap BUN Creatinine Estim Creat Clear Calc Estimated GFR Glucose POC Capillary Glucose 217 H Calcium Total Bilirubin AST ALT Alkaline Phosphatase Troponin I NT-Pro-B Natriuret Pep 1980 H Total Protein Albumin Lipase Urine Color Urine Appearance Urine pH Ur Specific [place] Urine Protein Urine Glucose (UA) Urine Ketones Ur Blood (Man) Urine Nitrate Urine Bilirubin Urine Urobilinogen Leukocyte Esterase Rfl Influenza A (RT-PCR) Negative Influenza B (RT-PCR) Negative RSV (RT-PCR) Negative SARS-CoV-2 RNA (RT-PCR) Negative 03/18/24 03/18/24 03/18/24 18:33 18:33 19:12 WBC 5.6 RBC 3.41 L Hgb 10.3 L Hct 34.0 L MCV 99.7 MCH 30.2 MCHC 30.3 L RDW 12.7 Plt Count 141 L MPV 10.4 Immature Gran % (Auto) 0.4 Neut % (Auto) 69.4 Lymph % (Auto) 18.7 [place] % (Auto) 8.3 Eos % (Auto) 2.5 Baso % (Auto) 0.7 Lymph # (Auto) 1.04 [place] # (Auto) 0.5 Eos # (Auto) 0.1 Baso # (Auto) 0.0 Abs Immat Gran (auto) 0.02 Absolute Neuts (auto) 3.9 Absolute Nucleated RBC 0.000 Nucleated RBC % 0.0 PT 13.0 INR 0.9 APTT 28.7 Puncture Site Right radial ABG pH 7.326 L ABG pCO2 70.5 H* ABG pO2 128.6 H ABG PO2/FiO2 Ratio 4.02 ABG HCO3 36.0 H ABG O2 Saturation 98.2 ABG O2 Content 15.4 L ABG Base Excess 8.0 A-a Gradient 17.1 Oxyhemoglobin 98.3 Total Hemoglobin 11.0 L O2 Delivery Device Not Reportable O2 Liters/Min 3.0 FiO2 32 Expiratory Pressure Inspiratory Pressure Sodium 141 Potassium 4.6 Chloride 99 Carbon Dioxide > 40 H Anion Gap BUN 29 H D Creatinine 0.80 Estim Creat Clear Calc 42 Estimated GFR > 60 Glucose 207 H POC Capillary Glucose Calcium 8.9 Total Bilirubin 0.5 AST 15 ALT 7 Alkaline Phosphatase 73 Troponin I < 0.012 Cancelled NT-Pro-B Natriuret Pep Total Protein 6.0 L Albumin 3.4 L Lipase 24 Urine Color Yellow Urine Appearance Clear Urine pH 5.0 Ur Specific [place] 1.024 Urine Protein Negative Urine Glucose (UA) Negative Urine Ketones Negative Ur Blood (Man) Negative Urine Nitrate Negative Urine Bilirubin Negative Urine Urobilinogen 0.2 Leukocyte Esterase Rfl Negative Influenza A (RT-PCR) Influenza B (RT-PCR) RSV (RT-PCR) SARS-CoV-2 RNA (RT-PCR) 03/18/24 03/19/24 03/19/24 22:50 00:51 05:05 WBC 5.6 RBC 3.34 L Hgb 10.2 L Hct 33.9 L MCV 101.5 H MCH 30.5 MCHC 30.1 L RDW 12.6 Plt Count 148 L MPV 10.9 H Immature Gran % (Auto) 0.4 Neut % (Auto) 85.7 H Lymph % (Auto) 11.3 L [place] % (Auto) 1.8 L Eos % (Auto) 0.4 Baso % (Auto) 0.4 Lymph # (Auto) 0.63 L [place] # (Auto) 0.1 Eos # (Auto) 0.0 Baso # (Auto) 0.0 Abs Immat Gran (auto) 0.02 Absolute Neuts (auto) 4.8 Absolute Nucleated RBC 0.000 Nucleated RBC % 0.0 PT INR APTT Puncture Site Right radial Right radial ABG pH 7.316 L 7.309 L ABG pCO2 76.3 H* 75.3 H* ABG pO2 144.6 H 144.2 H ABG PO2/FiO2 Ratio 2.41 3.20 ABG HCO3 38.1 H 37.0 H ABG O2 Saturation 98.6 98.5 ABG O2 Content 15.6 L 15.2 L ABG Base Excess 9.5 8.5 A-a Gradient 199.3 91.0 Oxyhemoglobin 98.4 98.3 Total Hemoglobin 11.1 L 10.8 L O2 Delivery Device High flow therapy Bipap O2 Liters/Min 45.0 Not Reportable FiO2 60 45 Expiratory Pressure 8 Inspiratory Pressure 12 Sodium 140 Potassium 4.7 Chloride 101 Carbon Dioxide 36 H Anion Gap 3 L BUN 26 H Creatinine 0.80 Estim Creat Clear Calc 39 Estimated GFR > 60 Glucose 210 H POC Capillary Glucose Calcium 8.6 Total Bilirubin AST ALT Alkaline Phosphatase Troponin I < 0.012 NT-Pro-B Natriuret Pep Total Protein Albumin Lipase Urine Color Urine Appearance Urine pH Ur Specific [place] Urine Protein Urine Glucose (UA) Urine Ketones Ur Blood (Man) Urine Nitrate Urine Bilirubin Urine Urobilinogen Leukocyte Esterase Rfl Influenza A (RT-PCR) Influenza B (RT-PCR) RSV (RT-PCR) SARS-CoV-2 RNA (RT-PCR) 03/19/24 09:48 WBC RBC Hgb Hct MCV MCH MCHC RDW Plt Count MPV Immature Gran % (Auto) Neut % (Auto) Lymph % (Auto) [place] % (Auto) Eos % (Auto) Baso % (Auto) Lymph # (Auto) [place] # (Auto) Eos # (Auto) Baso # (Auto) Abs Immat Gran (auto) Absolute Neuts (auto) Absolute Nucleated RBC Nucleated RBC % PT INR APTT Puncture Site ABG pH ABG pCO2 ABG pO2 ABG PO2/FiO2 Ratio ABG HCO3 ABG O2 Saturation ABG O2 Content ABG Base Excess A-a Gradient Oxyhemoglobin Total Hemoglobin O2 Delivery Device O2 Liters/Min FiO2 Expiratory Pressure Inspiratory Pressure Sodium Potassium Chloride Carbon Dioxide Anion Gap BUN Creatinine Estim Creat Clear Calc Estimated GFR Glucose POC Capillary Glucose 312 H Calcium Total Bilirubin AST ALT Alkaline Phosphatase Troponin I NT-Pro-B Natriuret Pep Total Protein Albumin Lipase Urine Color Urine Appearance Urine pH Ur Specific [place] Urine Protein Urine Glucose (UA) Urine Ketones Ur Blood (Man) Urine Nitrate Urine Bilirubin Urine Urobilinogen Leukocyte Esterase Rfl Influenza A (RT-PCR) Influenza B (RT-PCR) RSV (RT-PCR) SARS-CoV-2 RNA (RT-PCR)
[2024-03-19 14:12] LABS: Glucose Point of Care 294 mg/dl (65-105)
[2024-03-19 16:36] LABS: Glucose Point of Care 189 mg/dl (65-105)
--- NOTE | 2024-03-19 17:35 | PCSTNOTE ---
Please refer to the Bedside Swallow Evaluation in the EMR. Please note, silent aspiration cannot be ruled out at bedside.
[2024-03-19 20:22] LABS: Glucose Point of Care 185 mg/dl (65-105)
[2024-03-20] VITALS (27 sets, daily range): BP systolic 124–140; BP diastolic 43–54; PULSE 46–74; RESP 12–25; TEMP 36.5–37.2; O2SAT 92–100
[2024-03-20 05:10] LABS: Alveolar/Arterial O2 Gradient < 0.0 mmHg; Base Excess ABG 6.7 mEq/l (+/-2.0); Fractional Inspired Oxygen 32 %; HCO3 ABG 33.9 mEq/l (22.0-26.0); Oxygen Content ABG 14.1 %vol (16.0-22.0); Oxygen Saturation ABG 98.8 % (95.0-100.0); Oxyhemoglobin 98.1 % THb (90.0-100.0); PO2 ABG 153.6 mmHg (80.0-100.0); pH ABG 7.338 (7.350-7.450)
[2024-03-20 05:13] LABS: Device NASAL CANNULA; Modified Allen's Test Pass; PCO2 ABG 64.6 mmHg (35.0-45.0); Site Drawn RIGHT RADIAL
[2024-03-20 05:29] LABS: Albumin Level 3.1 g/dL (3.5-5.1); Blood Urea Nitrogen 40 mg/dL (7-17); Calcium 8.5 mg/dL (8.4-10.2); Carbon Dioxide > 40 mmol/L (22-30); Chloride 100 mmol/L (98-107); Estimated CRCL calculation 32 ml/min; Estimated Glomerular Filt Rate 53; Glucose 150 mg/dL (65-110); Phosphorus 3.6 mg/dL (2.5-4.5); Potassium 4.5 mmol/L (3.4-5.0); Sodium 140 mmol/L (137-145)
[2024-03-20 06:19] LABS: Vitamin B12 > 1000.0 pg/mL (239-931)
--- NOTE | 2024-03-20 08:25 | PC.NURSE ---
Pt called out production intern light. Electrician Substation Supervisor notified RN that pt sounded like she was choking. RN to bedside. Pt audibly wheezing, states asthma attack. RN notifies RT. RT to bedside for treatment, but there's nothing ordered. RN called MD and received orders for Nebulizer tx. Orders placed. Nebulizer tx initiated by RT. Pt remains on 3L NC, SpO2 100%, lungs with inspiratory and expiratory wheezes. Pt no longer in distress. MD at bedside
[2024-03-20] MEDS: IPRATROPIUM 0.5 MG/ALBUTEROL SULFATE 2.5 MG AMPUL.NEB 3 ML INHALATION ×3 (08:40→20:54)
[2024-03-20 12:01] LABS: Glucose Point of Care 187 mg/dl (65-105)
--- NOTE | 2024-03-20 12:49 | P.PNIM_ITS ---
Progress Note: A&P Assessment and Plan (1) Acute on chronic respiratory failure with hypoxia and hypercapnia: Code(s): J96.21 - Acute and chronic respiratory failure with hypoxia; J96.22 - Acute and chronic respiratory failure with hypercapnia Status: Acute Assessment and Plan: Patient presents with weakness, constipation and urine retention. She is also having body aches. She denied increasing shortness of breath on admission but patient was found to have hypoxic respiratory failure with SpO2 of 80% despite high-flow nasal cannula. She is noted to have CO2 retention with ABG showing 7.33/71/128 on 3 L. Patient declined BiPAP initially but then this was able to be placed. Repeat ABG showed no significant improvement (7.31/75/144 bipap)but she was clinically better. COVID, RSV and influenza PCR negative. Chest CT showing atelectasis. Weaned off BiPAP and refusing to wear this at night Called to the room this morning for worsening SOB and wheezing. Probably asthma/COPD exacerbation. CXR showing mild atelecatsis. ABG this morning (without wearing bipap overnight and only 3L) was 7.34/65/153 on 3L. Start Solu-Medrol and Duonebs. CO2 retention related to excess oxygen? WeanO2 to keep SpO2 >92% (discussed with RN and Resp Tech) (2) Altered mental status: Code(s): R41.82 - Altered mental status, unspecified Status: Resolved Assessment and Plan: Patient was brought to emergency room for altered mental status per admitting note but patient was aware enough to refuse BiPAP. Patient was alert and orient x3 by ER evaluation. Unclear if patient was altered on admission. No focal findings at this time. Speech therpay had no concerns so diet started Will monitor clinically for now. (3) Paroxysmal atrial fibrillation: Code(s): I48.0 - Paroxysmal atrial fibrillation Status: Acute Assessment and Plan: No EKG on admission but tele showing NSR On metoprolol for rate control Not on anticoagulation Monitor (4) Generalized weakness: Code(s): R53.1 - Weakness Status: Acute Assessment and Plan: Related to above. Continue PT/OT (5) Diastolic congestive heart failure: Code(s): I50.30 - Unspecified diastolic (congestive) heart failure Status: Acute Assessment and Plan: Echo in September showing EF>70%, Grade I diastolic dysfunction CT chest does not show pulmonary edema. BNP 1979 which is lower then last admission. Clinically euvolemic Continue oral lasix (6) Hypertension: Qualifiers: Hypertension type: unspecified Qualified Code(s): I10 - Essential (primary) hypertension Code(s): I10 - Essential (primary) hypertension Status: Chronic Assessment and Plan: Patient's blood pressure was reviewed on 03/20 Hydralazine resumed at lower dose. Blood pressure remains well controlled. Will continue to monitor (7) T2DM (type 2 diabetes mellitus): Code(s): E11.9 - Type 2 diabetes mellitus without complications Status: Acute Assessment and Plan: The patient's blood glucose was reviewed on 03/20 Glucose remains well controlled. Continue AccuCheks covering with sliding scale. Hypoglycemia protocol available as needed. Continue to monitor. Advance sliding scale due to starting steroids. Plan DVT prophylaxis - SCDs Code status - full Subjective Date/time seen: 03/20/24 12:49 Interval history: 83yo female with chronic hypoxic respiratory failure on 3 L, DM, pAFib, CHF and GERD here for altered mental status and shortness of breath for the last 4-5 days. No Bipap last night. Still with cough. SLept okay but felt cold. No CP. Exam Narrative: AF 98.5 133/50 57 20 98% 1L Gen - tachypneic and receiving neb treatment HEENT - allergic shiners Chest -coarse expiratory wheezing CV - RRR S1/S2. Telemetry showing no significant dysrhythmias Abd - Soft, NT/ND, Positive BS Ext - No pedal edema Psych - Nml mood and affect Skin - Warm and dry Objective Data Vital Signs Vital Signs: Vital Signs - 24 hr 03/19/24 16:00 03/19/24 14:00 03/19/24 16:00 Temperature 98.7 F Pulse Rate 58 L 56 L 59 L Respiratory Rate 24 H Blood Pressure 113/40 L Pulse Oximetry 97 Oxygen Delivery Oxygen Flow Rate 03/19/24 18:00 03/19/24 20:17 03/19/24 20:30 Temperature Pulse Rate 61 61 61 Respiratory Rate 24 H Blood Pressure Pulse Oximetry 100 100 Oxygen Delivery Nasal Cannula Nasal Cannula Oxygen Flow Rate 3 3 03/19/24 20:38 03/19/24 20:52 03/19/24 20:00 Temperature 98.1 F Pulse Rate 63 61 55 L Respiratory Rate 24 H Blood Pressure 139/54 L Pulse Oximetry 100 Oxygen Delivery Oxygen Flow Rate 03/19/24 22:00 03/20/24 00:00 03/20/24 00:48 Temperature 97.8 F Pulse Rate 61 61 54 L Respiratory Rate 24 H 24 H Blood Pressure 129/54 L Pulse Oximetry 100 100 Oxygen Delivery Nasal Cannula Oxygen Flow Rate 3 03/20/24 00:00 03/20/24 02:00 03/20/24 04:00 Temperature Pulse Rate 53 L 55 L 55 L Respiratory Rate 24 H Blood Pressure Pulse Oximetry 100 Oxygen Delivery Nasal Cannula Oxygen Flow Rate 3 03/20/24 04:00 03/20/24 04:50 03/20/24 06:00 Temperature 97.7 F Pulse Rate 46 L 53 L 69 Respiratory Rate 24 H Blood Pressure 124/54 L Pulse Oximetry 100 Oxygen Delivery Oxygen Flow Rate 03/20/24 08:00 03/20/24 08:30 03/20/24 08:33 Temperature 98.1 F Pulse Rate 59 L 64 Respiratory Rate 12 24 H Blood Pressure 129/43 L Pulse Oximetry 98 100 Oxygen Delivery Nasal Cannula Oxygen Flow Rate 3 03/20/24 08:38 03/20/24 08:25 03/20/24 08:40 Temperature Pulse Rate 60 Respiratory Rate 24 H Blood Pressure Pulse Oximetry 100 100 Oxygen Delivery Nasal Cannula Nasal Cannula Oxygen Flow Rate 3 2 03/20/24 08:00 03/20/24 09:50 03/20/24 10:51 Temperature Pulse Rate Respiratory Rate Blood Pressure Pulse Oximetry 100 94 Oxygen Delivery Nasal Cannula Nasal Cannula Nasal Cannula Oxygen Flow Rate 3 2 2 03/20/24 11:13 03/20/24 08:00 03/20/24 10:00 Temperature Pulse Rate 59 L 58 L Respiratory Rate Blood Pressure Pulse Oximetry Oxygen Delivery Nasal Cannula Oxygen Flow Rate 2 03/20/24 12:00 03/20/24 12:00 Temperature 98.5 F Pulse Rate 57 L Respiratory Rate 20 Blood Pressure 133/50 L Pulse Oximetry 97 98 Oxygen Delivery Nasal Cannula Oxygen Flow Rate 1 Intake/Output Intake/Output: Intake & Output 03/17/24 03/18/24 03/19/24 03/20/24 23:59 23:59 23:59 23:59 Intake Total 0 Output Total 75 Balance -75 0 Meds/Results Medications: Active Medications Generic Name Dose Route Start Last Admin Trade Name Yeisonq PRN Reason Stop Dose Admin Acetaminophen 650 mg 03/19/24 03:41 03/19/24 10:56 Acetaminophen 325 Mg Tablet PO 650 mg Q6H PRN Administration pain 1-3 Cyanocobalamin 1,000 mcg 03/20/24 09:00 Cyanocobalamin 1,000 Mcg Tablet PO QAM ROSEMARIE Dextrose 12.5 gm 03/19/24 13:53 Dextrose 50% 25 Gm/50 Ml Syringe IV PUSH PRN PRN Hypoglycemia Protocol Doxazosin Mesylate 8 mg 03/19/24 09:00 03/19/24 10:21 Doxazosin Mesylate 4 Mg Tablet PO 8 mg DAILY ROSEMARIE Administration Ferrous Sulfate 142 mg 03/20/24 08:00 Ferrous Sulfate Dried 142 Mg Tabcr PO DAILY@0800 ROSEMARIE Folic Acid 1 mg 03/20/24 09:00 Folic Acid 1 Mg Tablet PO DAILY [facility] Furosemide 40 mg 03/20/24 09:00 Furosemide 40 Mg Tablet PO DAILY [facility] Glucagon 1 mg 03/19/24 13:53 Glucagon For Inj 1 Mg Vial IM PRN PRN Hypoglycemia Protocol Glucose 15 gm 03/19/24 13:53 Glucose Oral Gel 15 Gm Of Glucse In 37.5 Gm Tube PO PRN PRN Hypoglycemia Protocol Guaifenesin/Dextromethorphan 10 ml 03/19/24 03:41 Guaifenesin/Dextromethorphan 10 Ml Udc PO Q4-6H PRN Cough Hydralazine HCl 25 mg 03/19/24 09:00 03/19/24 17:40 Hydralazine Hcl 25 Mg Tablet BY MOUTH Not Given TID [facility] Hydralazine HCl 12.5 mg 03/19/24 09:00 03/19/24 12:47 Hydralazine 12.5 Mg Tablet PO Not Given TID [facility] Dextrose 1,000 mls @ 100 mls/hr 03/19/24 13:53 Dextrose 5% 1,000 Ml IVPB PRN PRN Hypoglycemia Protocol Insulin Aspart 2 - 5 units 03/19/24 18:00 03/20/24 06:33 Insulin Aspart (*Bkc) 100 Units/Ml SUB-Q Not Given Q6HR [facility] Protocol Insulin Glargine 10 units 03/19/24 18:00 03/19/24 17:40 Insulin Glargine (*Bkc) 100 Units/Ml SUB-Q Not Given QPM ROSEMARIE Metoprolol Tartrate 75 mg 03/19/24 09:00 03/19/24 20:38 Metoprolol Tartrate 25 Mg Tablet PO 75 mg Q12HR ROSEMARIE Administration Pantoprazole Sodium 40 mg 03/19/24 09:00 03/19/24 10:22 Pantoprazole 40 Mg Tablet PO 40 mg QAM ROSEMARIE Administration Sacubitril/Valsartan 1 tab 03/19/24 09:00 03/19/24 20:38 Sacubitril/Valsartan 24-26 Mg Tablet PO 1 tab Q12HR ROSEMARIE Administration Sucralfate 1,000 mg 03/19/24 03:41 Sucralfate Susp 100 Mg/Ml 10 Ml Udc PO ACHS PRN GERD Radiology Results: ITS Impressions Chest X-Ray 03/18/24 18:18 IMPRESSION: Cardiomegaly, aortic atherosclerosis No active pulmonary disease Chest/Abdomen/Pelvis CT 03/19/24 06:55 IMPRESSION: 1. 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 Labs Labs: Laboratory Results - last 24 hr 03/19/24 03/19/24 03/19/24 11:44 16:25 20:15 Puncture Site ABG pH ABG pCO2 ABG pO2 ABG PO2/FiO2 Ratio ABG HCO3 ABG O2 Saturation ABG O2 Content ABG Base Excess A-a Gradient Oxyhemoglobin Total Hemoglobin O2 Delivery Device O2 Liters/Min FiO2 Sodium Potassium Chloride Carbon Dioxide Anion Gap BUN Creatinine Estim Creat Clear Calc Estimated GFR Glucose POC Capillary Glucose 294 H 189 H 185 H Calcium Phosphorus Albumin Vitamin B12 03/20/24 03/20/24 03/20/24 04:57 05:08 11:40 Puncture Site Right radial ABG pH 7.338 L ABG pCO2 64.6 H* ABG pO2 153.6 H ABG PO2/FiO2 Ratio 4.80 ABG HCO3 33.9 H ABG O2 Saturation 98.8 ABG O2 Content 14.1 L ABG Base Excess 6.7 A-a Gradient < 0.0 Oxyhemoglobin 98.1 Total Hemoglobin 10.0 L O2 Delivery Device Nasal cannula O2 Liters/Min 3.0 FiO2 32 Sodium 140 Potassium 4.5 Chloride 100 Carbon Dioxide > 40 H Anion Gap BUN 40 H D Creatinine 1.00 Estim Creat Clear Calc 32 Estimated GFR 53 L Glucose 150 H POC Capillary Glucose 187 H Calcium 8.5 Phosphorus 3.6 Albumin 3.1 L Vitamin B12 > 1000.0 H
--- NOTE | 2024-03-20 13:05 | PCSTNOTE ---
Please refer to the Modified Barium Swallow Evaluation in the EMR. The patient was seated for a lateral view and presented with 5cc of thin liquid barium via a spoon, pudding consistency barium via a spoon, liquid/solid mix, a cracker coated with barium pudding via spoon, and an uncontrolled thin liquid barium bolus. This was presented via a cup and a straw. Oral preparatory and oral phase symptoms: none. Pharyngeal phase symptoms: none. Esophageal stage symptoms: none. No aspiration occurred. Impressions: Overall, the patient presents with normal swallow ability. No laryngeal penetration or aspiration was exhibited. Recommendations: Regular diet with thin liquids
[2024-03-20] MEDS: SACUBITRIL/VALSARTAN 24-26 MG TABLET 1 TAB PO ×2 (13:15→20:45)
[2024-03-20] MEDS: DOXAZOSIN MESYLATE 4 MG TABLET 8 MG PO (13:15)
[2024-03-20] MEDS: PANTOPRAZOLE 40 MG TABLET PO (13:15)
[2024-03-20] MEDS: FERROUS SULFATE DRIED 142 MG TABCR PO (13:15)
[2024-03-20] MEDS: hydrALAZINE HCL 25 MG TABLET BY MOUTH ×2 (13:15→16:50)
[2024-03-20] MEDS: FOLIC ACID 1 MG TABLET PO (13:16)
[2024-03-20] MEDS: METOPROLOL TARTRATE 25 MG TABLET 75 MG PO ×2 (13:16→20:45)
[2024-03-20] MEDS: methylPREDNISolone SOD SUCC 125 MG VIAL 60 MG IV PUSH ×2 (13:16→16:54)
[2024-03-20] MEDS: CYANOCOBALAMIN 1,000 MCG TABLET 1000 MCG PO (13:16)
[2024-03-20] MEDS: FUROSEMIDE 40 MG TABLET PO (13:16)
[2024-03-20] MEDS: ACETAMINOPHEN 325 MG TABLET 650 MG PO (13:32)
[2024-03-20] MEDS: INSULIN GLARGINE (*BKC) 100 UNITS/ML 10 UNITS SUB-Q (16:50)
[2024-03-20 16:51] LABS: Glucose Point of Care 357 mg/dl (65-105)
[2024-03-20] MEDS: INSULIN ASPART (*BKC) 100 UNITS/ML SUB-Q ×2 (16:53→20:45)
[2024-03-20 20:40] LABS: Glucose Point of Care 322 mg/dl (65-105)
[2024-03-21] VITALS (7 sets, daily range): BP systolic 146; BP diastolic 56; PULSE 56–69; RESP 18–20; TEMP 36.4; O2SAT 92–96
[2024-03-21] MEDS: methylPREDNISolone SOD SUCC 125 MG VIAL 60 MG IV PUSH ×2 (00:21→06:11)
[2024-03-21] MEDS: IPRATROPIUM 0.5 MG/ALBUTEROL SULFATE 2.5 MG AMPUL.NEB 3 ML INHALATION ×2 (03:00→07:13)
[2024-03-21 07:47] LABS: Hematocrit 31.7 % (37.0-47.0); Mean Corpuscular HGB Conc 31.5 g/dl (32-36); Mean Corpuscular Volume 95.2 fl (80-100); Mean Platelet Volume 10.6 fl (7.4-10.4); Platelet Count Result 150 k/mm3 (150-375); Red Blood Count 3.33 M/mm3 (4.2-5.4); Red Cell Distribution Width 12.5 % (11.5-14.5); White Blood Count 5.6 K/mm3 (4.5-10.0)
[2024-03-21 07:56] LABS: Anion Gap 5 mmol/L (4-12); Blood Urea Nitrogen 49 mg/dL (7-17); Calcium 8.7 mg/dL (8.4-10.2); Carbon Dioxide 35 mmol/L (22-30); Chloride 96 mmol/L (98-107); Estimated CRCL calculation 32 ml/min; Estimated Glomerular Filt Rate 53; Glucose 259 mg/dL (65-110); Potassium 4.2 mmol/L (3.4-5.0); Sodium 136 mmol/L (137-145)
[2024-03-21 08:21] LABS: Glucose Point of Care 278 mg/dl (65-105)
[2024-03-21] MEDS: FOLIC ACID 1 MG TABLET PO (09:55)
[2024-03-21] MEDS: hydrALAZINE HCL 25 MG TABLET BY MOUTH (09:55)
[2024-03-21] MEDS: FERROUS SULFATE DRIED 142 MG TABCR PO (09:55)
[2024-03-21] MEDS: CYANOCOBALAMIN 1,000 MCG TABLET 1000 MCG PO (09:55)
[2024-03-21] MEDS: FUROSEMIDE 40 MG TABLET PO (09:55)
[2024-03-21] MEDS: PANTOPRAZOLE 40 MG TABLET PO (09:55)
[2024-03-21] MEDS: SACUBITRIL/VALSARTAN 24-26 MG TABLET 1 TAB PO (09:55)
[2024-03-21] MEDS: INSULIN ASPART (*BKC) 100 UNITS/ML SUB-Q ×2 (09:57→12:36)
[2024-03-21] MEDS: METOPROLOL TARTRATE 25 MG TABLET 75 MG PO (10:00)
[2024-03-21] MEDS: DOXAZOSIN MESYLATE 4 MG TABLET 8 MG PO (10:04)
[2024-03-21 12:26] LABS: Glucose Point of Care 374 mg/dl (65-105)
--- NOTE | 2024-03-21 15:05 | PM.DS ---
DS: Admitting Diagnosis Discharge Date 03/21/24 Admitting Diagnosis Acute on chronic respiratory failure with hypoxia and hypercapnia DS: Discharge Diagnosis Discharge Diagnosis (1) Acute on chronic respiratory failure with hypoxia and hypercapnia: Code(s): J96.21 - Acute and chronic respiratory failure with hypoxia; J96.22 - Acute and chronic respiratory failure with hypercapnia Status: Acute Assessment and Plan: Patient presents with weakness, constipation and urine retention. She is also having body aches. She denied increasing shortness of breath on admission but patient was found to have hypoxic respiratory failure with SpO2 of 80% despite high-flow nasal cannula. She is noted to have CO2 retention with ABG showing 7.33/71/128 on 3 L. Patient declined BiPAP initially but then this was able to be placed. Repeat ABG showed no significant improvement (7.31/75/144 bipap)but she was clinically better. COVID, RSV and influenza PCR negative. Chest CT showing atelectasis. Weaned off BiPAP and refusing to wear this at night Called to the room this morning for worsening SOB and wheezing. Probably asthma/COPD exacerbation. CXR showing mild atelecatsis. ABG this morning (without wearing bipap overnight and only 3L) was 7.34/65/153 on 3L. Start Solu-Medrol and Duonebs. CO2 retention related to excess oxygen? WeanO2 to keep SpO2 >92% (discussed with RN and Resp Tech) (2) Altered mental status: Code(s): R41.82 - Altered mental status, unspecified Status: Resolved Assessment and Plan: Patient was brought to emergency room for altered mental status per admitting note but patient was aware enough to refuse BiPAP. Patient was alert and orient x3 by ER evaluation. Unclear if patient was altered on admission. No focal findings at this time. Speech therpay had no concerns so diet started Will monitor clinically for now. (3) Paroxysmal atrial fibrillation: Code(s): I48.0 - Paroxysmal atrial fibrillation Status: Acute Assessment and Plan: No EKG on admission but tele showing NSR On metoprolol for rate control Not on anticoagulation Monitor (4) Generalized weakness: Code(s): R53.1 - Weakness Status: Acute Assessment and Plan: Related to above. Continue PT/OT (5) Diastolic congestive heart failure: Code(s): I50.30 - Unspecified diastolic (congestive) heart failure Status: Acute Assessment and Plan: Echo in September showing EF>70%, Grade I diastolic dysfunction CT chest does not show pulmonary edema. BNP 1979 which is lower then last admission. Clinically euvolemic Continue oral lasix (6) Hypertension: Qualifiers: Hypertension type: unspecified Qualified Code(s): I10 - Essential (primary) hypertension Code(s): I10 - Essential (primary) hypertension Status: Chronic Assessment and Plan: Patient's blood pressure was reviewed on 03/20 Hydralazine resumed at lower dose. Blood pressure remains well controlled. Will continue to monitor (7) T2DM (type 2 diabetes mellitus): Code(s): E11.9 - Type 2 diabetes mellitus without complications Status: Acute Assessment and Plan: The patient's blood glucose was reviewed on 03/20 Glucose remains well controlled. Continue AccuCheks covering with sliding scale. Hypoglycemia protocol available as needed. Continue to monitor. Advance sliding scale due to starting steroids. Plan DVT prophylaxis - SCDs Code status - full DS: Summary Hospital Course Reason for hospitalization: SOB Hospital Course: 83 years old female with history of multiple medical admitted complained shortness breath. Patient was found to have acute respiratory failure with hypoxia and hypercapnia. Patient was given IV steroid and oxygen was supported by BiPAP. Patient was continued on blood pressure and diabetic medication. During the stay in the hospital patient did not have any complication. Today patient is feeling better and was discharged home in stable condition. Follow-up with primary care physician and student affairs vice president scheduled. Status at Discharge Cognitive/behavioral status at discharge: Stable Time Spent with Patient Time attestation: Total time spent providing and/or coordinating discharge services: 30 minutes Exam Narrative: AF 98.5 133/50 57 20 98% 1L Gen - tachypneic and receiving neb treatment HEENT - allergic shiners Chest -coarse expiratory wheezing CV - RRR S1/S2. Telemetry showing no significant dysrhythmias Abd - Soft, NT/ND, Positive BS Ext - No pedal edema Psych - Nml mood and affect Skin - Warm and dry Const: General: comfortable, no acute distress, well developed, alert, awake, ill appearing, tired appearing and average body habitus Nutritional Appearance: average body habitus Orientation/consciousness: patient oriented x3 HENMT: Head: normal to inspection, normocephalic and atraumatic Ears: hearing grossly normal bilaterally Face/Nose/Sinus: normal facial exam Face and sinus: normal facial exam Eyes: General: appearance normal, both eyes and all related structures Pupils: Equal, round and reactive pupils present EOM: EOMs intact bilaterally Neck: Neck: full ROM, no lymphadenopathy and no JVD Thyroid: thyroid normal Lymphatic: no lymphadenopathy noted Resp: Effort & Inspection: normal respiratory effort and able to speak in complete sentences Auscultation: rhonchi, wheezes and diminished lung sounds Cardio: Jugular venous distension: no JVD Rate: regular rate Rhythm: regular rhythm Heart sounds: S1 normal heart sound present and S2 normal heart sound present : General: Yes deferred Skin: Rashes: no rashes Wounds: no wounds Neuro: General: patient oriented x3, CN's II-XI intact bilaterally and Unable to assess gait Cranial nerves: Yes CN's II-XII intact bilaterally and Yes Equal, round and reactive pupils present Cognition (Neuro): normal cognition Speech: normal speech Gait exam (Neuro): Unable to assess gait Motor exam (neuro): 5/5 motor strength present throughout Extrem: General: normal to inspection, full ROM, no joint enlargement and no pedal edema DS: Data Data Completed and Pending Labs on day of discharge: Labs from last 24 hours 03/21/24 03/21/24 03/21/24 12:22 08:16 06:57 WBC 5.6 RBC 3.33 L Hgb 10.0 L Hct 31.7 L MCV 95.2 D MCH 30.0 MCHC 31.5 L RDW 12.5 Plt Count 150 MPV 10.6 H Sodium 136 L Potassium 4.2 Chloride 96 L Carbon Dioxide 35 H Anion Gap 5 BUN 49 H Creatinine 1.00 Estim Creat Clear Calc 32 Estimated GFR 53 L Glucose 259 H POC Capillary Glucose 374 H 278 H Calcium 8.7 03/20/24 03/20/24 20:04 16:39 WBC RBC Hgb Hct MCV MCH MCHC RDW Plt Count MPV Sodium Potassium Chloride Carbon Dioxide Anion Gap BUN Creatinine Estim Creat Clear Calc Estimated GFR Glucose POC Capillary Glucose 322 H 357 H Calcium Discharge Plan Discharge Attending physician on discharge: Lv Carr Consulting providers: Ashok Aguila Discharging Clinician: Lv Carr Patient Disposition: Home, Self-Care Activity: as tolerated Diet: as tolerated and heart healthy Patient Instructions: Antibiotic Form, Heart Failure (DC), Pain Management (DC), COPD (Chronic Obstructive Pulmonary Disease) (GEN) Stand Alone Forms: General Discharge Information Follow-up/Referrals: Ying Hickman MD [Physician] - Roel Haynes MD [Primary Care Provider] - Discharge Medications: New prednisone 20 mg tablet 40 mg PO DAILY Qty: 7 0RF Continued hydrocortisone acetate [Anusol-HC] 25 mg suppository 25 mg RECTAL ONCE PRN (Reason: hemmorhoids) tolnaftate 1 % powder 1 applic topical Q12HR PRN (Reason: irritation) Rx Instructions: apply to affected areas insulin glargine [Basaglar KwikPen U-100 Insulin] 100 unit/mL (3 mL) insulin pen 10 unit subcut QPM dextromethorphan-guaifenesin [Safe Tussin DM] 10-100 mg/5 mL Liquid 10 ml PO Q4-6H PRN (Reason: Cough) Patient Comments: as needed--approx 1-2 tablespoons a day hydralazine 25 mg tablet See Rx Instructions .ROUTE .COMPLEX Rx Instructions: TAKE 1.5 TABLET BY MOUTH THREE TIMES DAILY acetaminophen [Tylenol Extra Strength] 500 mg Tablet 650 mg PO Q6H PRN (Reason: pain 1-3) Fiasp U-100 Insulin 100 unit/mL Solution 2 - 4 unit subcut [facility] Rx Instructions: If patient is going to eat: 2u for glucose 150-180 4u for glucose >180 ferrous sulfate [Slow Release Iron] 142 mg (45 mg iron) Tablet Extended Release 142 mg PO DAILY@0800 Qty: 30 0RF cyanocobalamin (vitamin B-12) [Vitamin B-12] 1,000 mcg Tablet 1,000 mcg PO QAM Qty: 30 0RF folic acid 1 mg Tablet 1 mg PO DAILY Qty: 30 0RF pantoprazole 40 mg tablet,delayed release (DR/EC) 40 mg PO QAM Qty: 90 2RF (DME) pen needle, diabetic 31 gauge x 5/16 needle See Rx Instructions .Route Qty: 150 5RF Rx Instructions: Use to inject insulin 4 times daily or as directed (DME) FreeStyle Calixto 3 [place] Misc See Rx Instructions .Route Qty: 1 0RF Rx Instructions: Use to check blood glucose tid or as directed metoprolol tartrate 75 mg tablet 75 mg PO BID Qty: 180 3RF doxazosin 8 mg tablet 8 mg PO DAILY Qty: 90 0RF (DME) FreeStyle Calixto 3 Sensor Device See Rx Instructions .Route Qty: 4 5RF Rx Instructions: Use to check blood glucose tid or as directed Entresto 24-26 mg tablet 1 tablet PO Q12HR Qty: 60 5RF sucralfate 100 mg/mL suspension 1,000 mg PO ACHS PRN (Reason: GERD) Qty: 420 3RF spironolactone 25 mg tablet 25 mg PO DAILY Qty: 90 0RF furosemide 40 mg tablet 40 mg PO DAILY Qty: 90 0RF ondansetron 4 mg tablet,disintegrating 4 mg PO Q8H Qty: 20 0RF albuterol sulfate [Ventolin HFA] 90 mcg/actuation HFA aerosol inhaler 2 puff INHALATION Q2H PRN (Reason: sob, wheezing) Qty: 8.5 5RF No Action (DME) FreeStyle Calixto 2 Plus Sensor Device See Rx Instructions .Route Qty: 6 6RF Rx Instructions: As directed Date of admission: 03/19/24 07:41 Primary Care Provider: Roel Haynes Admitting Provider: Joseph Sood V. Attending physician on admission: Joseph Sood V. Condition: Serious
== END 2024-03-21 14:15 | disposition home or self-care (01) | DRG 189 ==
LOC: ANHED 17:06 → ANHIMU 03-19 02:43 → ANH3MED 03-21 10:41 → ANHIMU 03-26 10:19
PROVIDERS: Internal Medicine; Admitting Provider Internal Medicine; Emergency Provider Registered Nurse; PCP Family Medicine Adolescent Medicine; Visit Provider Internal Medicine
DX: J96.21 Acute and chronic respiratory failure with hypoxia (principal); J44.1 Chronic obstructive pulmonary disease with (acute) exacerbation; I50.22 Chronic systolic (congestive) heart failure; J96.22 Acute and chronic respiratory failure with hypercapnia; E11.9 Type 2 diabetes mellitus without complications; E53.8 Deficiency of other specified B group vitamins; I11.0 Hypertensive heart disease with heart failure; I48.0 Paroxysmal atrial fibrillation; K59.00 Constipation, unspecified; K21.9 Gastro-esophageal reflux disease without esophagitis; M10.9 Gout, unspecified; M81.0 Age-related osteoporosis without current pathological fracture; R33.9 Retention of urine, unspecified; R41.82 Altered mental status, unspecified; R53.1 Weakness; Z90.49 Acquired absence of other specified parts of digestive tract; Z99.81 Dependence on supplemental oxygen; Z79.4 Long term (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 of insulin; Z20.822 Contact with and (suspected) exposure to COVID-19; Z88.0 Allergy status to penicillin
CPT/HCPCS: 36415; 36600; 71045; 71046; 71260; 74177; 80048; 80053; 80069; 81003; 82607; 82805; 82948; 83690; 83880; 84484; 85018; 85025; 85027; 85610; 85730; 87637; 92526; 92610; 92611; 94002; 94003; 94640; 96374; 96375; 97161; 97165; 99285; A9270; G0378; J1815; J1940; J2060; J2919; J7030; Q9967

== ENCOUNTER 2024-08-14 13:01 | Outpatient (CLI) | payer MEDICARE, SELFPAY ==
--- NOTE | ~2024-08-14 | CT_ITS ---
Non-contrast CT scan of the Abdomen and Pelvis Clinical indication: Increased abdominal swelling Technique: 2.5 mm axial scans were obtained through the abdomen and pelvis without intravenous or or al contrast. Dose reduction technique was used on this scan by utilizing automated exposure control a nd iterative reconstruction technique. The dose-length product (DLP) was 1033.28 mGy-cm. COMPARISON: 03/18/2024 Findings: Images through the lung bases reveal no abnormalities. The liver, spleen, pancreas, gallbladder, right kidney, and adrenals appear normal. Stable large mult iseptated cystic mass of the left kidney as compared to prior exam, measuring up to approximately 13. 8 x 7.1 cm in transverse dimensions. There are atherosclerotic calcifications of the aorta. . There is no evidence of bowel obstruction. Small fat-containing umbilical hernia present. Images through the pelvis were performed. There is no evidence of ascites or lymphadenopathy. Urinary bladder unremarkable. No pelvic mass seen. Impression: No acute abnormality. Stable large multiseptated cystic mass of the left kidney, as detailed above. Reviewed, dictated and finalized at [facility]. Impression: No acute abnormality. Stable large multiseptated cystic mass of the left kidney, as detailed above.
== END 2024-08-14 13:02 | disposition home or self-care (01) ==
LOC: MICIMG 13:01
PROVIDERS: PCP Family Medicine Adolescent Medicine; Visit Provider Family Medicine Adolescent Medicine
DX: N28.1 Cyst of kidney, acquired (principal); R10.13 Epigastric pain
CPT/HCPCS: 74176

== ENCOUNTER 2024-11-01 10:11 | Inpatient (IN) | payer MEDICARE, SELFPAY ==
[2024-11-01] VITALS (18 sets, daily range): BP systolic 108–136; BP diastolic 42–86; PULSE 59–80; RESP 16–18; TEMP 36.4–36.7; O2SAT 92–98; BMI 30.6
--- NOTE | ~2024-11-01 | XR_ITS ---
Left wrist Technique: PA, oblique, lateral, and ulnar deviation views were obtained. Clinical History: Pain and swelling COMPARISON: 11/02/2024 Findings: No acute fracture or dislocation is seen. Osseous alignment is anatomic. Stable osteoarthri tic changes at the first CMC joint and triscaphe joint. Possible fusion of the trapezium and trapezoi d. Soft tissues are unremarkable. Impression: Stable degenerative changes at the radial aspect of the wrist, as detailed above. Possible fusion of the trapezium and trapezoid. Reviewed, dictated and finalized at location M. Impression: Stable degenerative changes at the radial aspect of the wrist, as detailed abov e. Possible fusion of the trapezium and trapezoid.
--- NOTE | ~2024-11-01 | XR_ITS ---
Left ankle Technique: AP, oblique, and lateral views were obtained. Clinical History: Pain Findings: No acute fracture or dislocation is seen. Osseous alignment is anatomic. Ankle mortise and other visualized joint spaces are preserved. Soft tissues are otherwise unremarkable. Impression: Unremarkable left ankle. Reviewed, dictated and finalized at location . Impression: Unremarkable left ankle.
--- NOTE | ~2024-11-01 | XR_ITS ---
Right Knee Technique: AP and lateral views were obtained. Clinical History: Pain Findings: No fracture or dislocation is seen. Osseous alignment is anatomic. Joint spaces are preserv ed without degenerative or erosive change. Soft tissues are unremarkable. No joint effusion is seen. Impression: Unremarkable right knee radiographs. Reviewed, dictated and finalized at location . Impression: Unremarkable right knee radiographs.
--- NOTE | ~2024-11-01 | XR_ITS ---
EXAM/PROCEDURE: XR chest 1V portable - 11/01/2024 13:30 CDT HISTORY: 83 years old Female with sob TECHNIQUE: Two view(s) of the chest. COMPARISON: 03/20/2024 FINDINGS: LUNGS/ PLEURA: No focal consolidation. No appreciable pneumothorax or large pleural effusion. Mild bi basilar atelectasis. Mild pulmonary vascular congestion. HEART/ MEDIASTINUM: Moderate cardiomegaly. Atherosclerotic calcifications are seen. BONES: Degenerative changes. OTHER: Visualized upper abdomen is unremarkable. Cholecystectomy clips are seen. IMPRESSION: Moderate cardiomegaly. Bibasilar atelectasis. Mild pulmonary vascular congestion. Reviewed, dictated and finalized at location A. IMPRESSION: Moderate cardiomegaly. Bibasilar atelectasis. Mild pulmonary vascular congestio n.
--- NOTE | ~2024-11-01 | CT_ITS ---
EXAMINATION: CT abdomen pelvis wo con DATE: 11/01/2024 11:54 INDICATION: Epigastric pain TECHNIQUE: Computed tomography (CT) of the abdomen and pelvis was performed without intravenous contr ast. Automated exposure control and iterative reconstruction technique were employed. The dose-length product was 718.35 mGy-cm. COMPARISON: CT studies dated 08/14/2024 and 03/18/2024 and MRI dated 12/23/2023 FINDINGS: There is eventration along the left and right sides of the diaphragm. Mild left basilar atelectasis. Mild cardiomegaly. Atherosclerotic coronary artery calcification. Aortic valve and mitral annular xochilt cific lesion. Unchanged minimal pericardial effusion. Cholecystectomy clips the gallbladder fossa. Th ere is subtle liver surface nodularity suspicious for cirrhosis. A few chronic calcifications in the liver which appear concentrically along the portal triads favoring a purse chronic calcifications ove r granulomatous disease. No intrapelvic biliary ductal dilation. Spleen, pancreas and bilateral adren al glands are normal. 1.5 cm cyst in the right kidney with no significant change in a chronic exophyt ic 13.0 x 10.5 x 7.3 cm septated Bosniak 3 complex cystic mass arising from the anterior left kidney. There are diverticula along the sigmoid colon with focal mild wall thickening and surrounding inflam matory stranding at the proximal sigmoid colon consistent with diverticulitis. Small bowel and append ix are normal. A small portion of the anterior wall of a loop of nonobstructed small bowel project in to the orifice of a small fat-containing umbilical hernia. Bladder is normal. Normal age-related atro phy of the uterus and bilateral adnexa. No abscess or free intraperitoneal gas or fluid. No pathologi ruth enlarged abdominal or pelvic lymphadenopathy. Severe lower thoracic and mild lumbar spondylosis . IMPRESSION: 1. Radiographic uncomplicated proximal sigmoid diverticulitis. 2. No significant interval change since 12/23/2023 in a 13.0 cm Bosniak 3 complex cystic left renal le norm. 3. Small portion of the anterior wall of a segment of small bowel projects into the orifice of a smal l fat-containing umbilical hernia. No bowel obstruction. Reviewed, dictated and finalized at location A. IMPRESSION: 1. Radiographic uncomplicated proximal sigmoid diverticulitis. 2. No significant interval change since 12/23/2023 in a 13.0 cm Bosniak 3 comple x cystic left renal lesion. 3. Small portion of the anterior wall of a segment of small bowel projects into the orifice of a small fat-containing umbilical hernia. No bowel obstruction.
--- NOTE | ~2024-11-01 | XR_ITS ---
XR hand LT min 3V Ordering provider: Martha Sanders APRN History: . hand and wrist pain . Comparison: None. FINDINGS: BONES: No acute fracture or dislocation. Osteopenia of the bones. JOINT SPACES: Narrowing of the proximal and distal interphalangeal joints. Narrowing of the first and second metacarpophalangeal joint. Osteoarthritic changes of the first carpometacarpal joint. Osteoar thritic changes of the joint between the scaphoid and trapezium bones SOFT TISSUES: Unremarkable. IMPRESSION: No acute osseous abnormality left hand. Osteopenia of the bones. Polyarticular osteoarthritic changes Reviewed, dictated and finalized at location A.
--- OUTSIDE RECORDS SUMMARY | 2024-11-01 10:18 | XMS_ITS ---
Author Name Auto Generated, Auto Generated Organization [facility] Address [address] [place] [address] Phone [phone] Care Team Providers Care Computer Systems Support Specialist Name Role Phone Evangelina Alvarez Unavailable [phone] Damien Mcgrath Unavailable [phone] Functional Status No Results Mental Status No Results Allergies and Intolerances Name Onset Date Reaction Severity metformin (Allergy) TueMay 17 19:14:00 EST 2023 omeprazole (Allergy) TueMay 17 19:14:00 EST 202 4 pioglitazone (Allergy) TueMay 17 19:14:00 EST 2 024 simvastatin (Allergy) TueMay 17 19:14:00 EST 20 24 acetaminophen (Allergy) TueMay 17 19:13:00 EST 2023 adhesive tape (Allergy) TueMay 17 19:13:00 EST 2023 amlodipine (Allergy) TueMay 17 19:13:00 EST 202 4 glimepiride (Allergy) TueMay 17 19:13:00 EST 20 24 hydrocodone (Allergy) TueMay 17 19:12:00 EST 20 24 nitrofurantoin (Allergy) TueMay 17 19:12:00 EST 2023 propoxyphene (Allergy) TueMay 17 19:12:00 EST 2 024 penicillin (Allergy) TueMay 17 19:11:00 EST 202 4 Medications Medication Directions Start Date End Date Afrin No Drip (oxymetazoline) 0.05 % nasal mist 2 sprays AEROSOL, MIST Intranasal PRN Indication: nasal constrictor-2 sprays into the nostril to help constrict the blood vessels TueJun 08 10:55:00 EST 2023Jun 08 19:04:00 EST 2023 Afrin No Drip (oxymetazoline) 0.05 % nasal mist 2 sprays AEROSOL, MIST Intranasal PRN Indication: nasal constrictor-2 sprays into the nostril to help constrict the blood vesselsMay keep at bedside Tue 14 19:03:00 EST 2023Jun 10 01:00:00 EST 2023 Dulcolax (bisacodyl) 10 mg rectal suppository 10 mg SUPPOSITORY, RECTAL Rectal PRN (Max 2 Doses) Indication: constipation Mon Jun 06 13:00:00 EST 2023Jun 10 01:00:00 EST 2023 Novofine Autocover 30 gauge x 1/3 needle needles NEEDLE, DISPOSABLE Subcutaneous Continuous Indication: DM need 1 box of needles for novolog & lantus pens Sun May 29 14:00:00 2023Jun 10 01:00:00 EST 2023 ondansetron 4 mg disintegrating tablet 2 tablets TABLET,DISINTEGRATING Oral PRN Every 6 Hours Indication: Nausea/Vomiting Sat May 28 14:00:00 2023Jun 10 01:00:00 EST 2023 Tylenol Extra Strength 500 mg tablet 2 tablets TABLET Oral PRN Every 6 Hours Indication: Pain USE HOME EXTRA STRENGTH TYLENOL PER REQUEST Mirian May 26 17:00:00 2023Jun 10 01:00:00 EST 2023 Imodium Multi-Symptom Relief 2 mg-125 mg tablet 1 tablet TABLET Oral PRN 3 Times Daily Indication: Diarrhea/BloatingTake 2 tablets for 1st stool then 1 tablet after subsequent stool MAX DOSE: 4 TABLETSUSE HOME MEDICATION PER REQUEST Mirian May 26 20:00:00 2023Jun 10 01:00:00 EST 2023 omeprazole 40 mg capsule,delayed release 40 mg CAPSULE,DELAYED RELEASE (ENTERIC COATED) Oral 1 Time Daily Indication: GERD TueMay 24 01:00:00 EST 2023May 24 12:33:00 EST 2023 spironolactone 50 mg tablet 1 tablet TAB LET Oral 1 Time Daily Indication: CHF TueMay 24 13:00:00 EST 2023Jun 10 01:00:00 EST 2023 pantoprazole 40 mg tablet,delayed release 1 tablet TABLET, DELAYED RELEASE (ENTERIC COATED) Oral 1 Time Daily Indication: GERD TueMay 24 14:00:00 EST 2023Jun 10 01:00:00 EST 2023 insulin aspart U-100 100 unit/mL subcutaneous solution 2-8 UNITS VIAL (ML) Subcutaneous 4 Times Daily Sliding Scale Insulin: Insulin Units < 70 or > 350 Notify MD;70-150, 0 Units;151-200, 2 Units;201-250, 4 Units;251-300, 6 Units;301-350, 8 Units;. Indication: DM TueMay 24 13:00:00 2023May 24 18:09:00 2023 insulin aspart U-100 100 unit/mL subcutaneous solution 2-8 UNITS VIAL (ML) Subcutaneous 3 Times Daily Sliding Scale Insulin: Insulin Units < 70 or > 350 Notify MD;70-150, 0 Units;151-200, 2 Units;201-250, 4 Units;251-300, 6 Units;301-350, 8 Units;. Indication: TueMay 24 13:00:00 2023May 24 18:28:00 2023 insulin aspart U-100 100 unit/mL subcutaneous solution 2-8 UNITS VIAL (ML) Subcutaneous 3 Times Daily Sliding Scale Insulin: Insulin Units < 70 or > 350 Notify MD;70-150, 0 Units;151-200, 2 Units;201-250, 4 Units;251-300, 6 Units;301-350, 8 Units;. Indication: TueMay 24 18:27:00 2023Jun 10 01:00:00 2023 simethicone 125 mg chewable tablet 1 tablet TABLET,CHEWABLE Oral PRN 4 Times Daily Indication: Gas TueMay 24 14:00:00 2023May 26 20:14:00 2023 Novofine Autocover 30 gauge x 1/3 needle needles NEEDLE, DISPOSABLE Subcutaneous Continuous Indication: 1 box of flexpen needles for Humalog & Lantus TueMay 24 14:00:00 2023Jun 10 01:00:00 2023 Acidophilus Probiotic Blend 175 mg capsule 1 capsule CAPSULE Oral 1 Time Daily for 14 Days Indication: prophylactic for GI health GI Health TueMay 22 11:00:00 2023Jun 05 10:59:00 2023 insulin aspart U-100 100 unit/mL subcutaneous solution 1-2 UNITS VIAL (ML) Subcutaneous 4 Times Daily Sliding Scale Insulin: Insulin Units < 70 or > 350 Notify MD;70-150, 0 Units;151-200, 2 Units;201-250, 4 Units;251-300, 6 Units;301-350, 8 Units;. Indication: DM TueMay 22 11:00:00 2023May 22 11:36:00 2023 insulin aspart U-100 100 unit/mL subcutaneous solution 2-8 UNITS VIAL (ML) Subcutaneous 4 Times Daily Sliding Scale Insulin: Insulin Units < 70 or > 350 Notify MD;70-150, 0 Units;151-200, 2 Units;201-250, 4 Units;251-300, 6 Units;301-350, 8 Units;. Indication: DM TueMay 22 11:00:00 2023May 22 21:34:00 2023 insulin aspart U-100 100 unit/mL subcutaneous solution 2-8 UNITS VIAL (ML) Subcutaneous 3 Times Daily Sliding Scale Insulin: Insulin Units < 70 or > 350 Notify MD;70-150, 0 Units;151-200, 2 Units;201-250, 4 Units;251-300, 6 Units;301-350, 8 Units;. Indication: DM TueMay 22 11:00:00 2023May 24 18:03:00 EST 2023 Lantus U-100 Insulin 100 unit/mL subcutaneous solution 18 units VIAL (ML) Subcutaneous 1 Time Daily Indication: DM administer 18 units subq every night. Do not hold long-acting insulin. TueMay 21 19:00:00 2023Jun 10 01:00:00 2023 Lantus U-100 Insulin 100 unit/mL subcutaneous solution 18 units VIAL (ML) Subcutaneous 1 Time Daily Indication: DM administer 18 units subq every night. Do not hold long-acting insulin. TueMay 20 21:00:00 2023May 21 20:23:00 2023 ondansetron 4 mg disintegrating tablet 2 tab TABLET,DISINTEGRATING Oral PRN Every 6 Hours Indication: nausea vomiting TueMay 20 13:00:00 2023May 26 20:13:00 2023 cefdinir 300 mg capsule 1 tab CAPSULE Or al 2 Times Daily for 7 Days Indication: UTI TueMay 21 09:00:00 2023May 28 08:59:00 2023 Lantus U-100 Insulin 100 unit/mL subcutaneous solution 18 units VIAL (ML) Subcutaneous 1 Time Daily Indication: DM administer 18 units subq every night. Do not hold long-acting insulin. TueMay 19 21:00:00 2023 26 09:12:00 EST 2023 Deep Sea Nasal 0.65 % spray aerosol as directed AEROSOL, SPRAY (ML) Intranasal PRN (Max 10 Doses) Indication: For dry nasal passages TueMay 19 13:00:00 EST 2023Jun 10 01:00:00 EST 2023 TubersoL 5 tub. unit/0.1 mL intradermal injection solution 0.1 ml VIAL (ML) Intradermal 1 Time Weekly for 2 Weeks Indication: tb test 1st injection on admission, then one week after. Read between 48 and 72 hours TueMay 18 01:00:00 EST 2023Jun 01 00:59:00 2023 TubersoL 5 tub. unit/0.1 mL intradermal injection solution Read Results VIAL (ML) Other 1 Time Weekly for 2 Weeks Indication: tb test Read results between 48-72 hours after 1st and 2nd (1 week apart). If positive do chest x-ray. TueMay 18 01:00:00 2023Jun 01 00:59:00 EST 2023 NovoLIN 70-30 FlexPen U-100 Insulin 100 unit/mL (70-30) subcutaneous 8 UNITS INSULIN PEN (ML) Subcutaneous 3 Times Daily Indication: DM WITH MEALS 8 units plus sliding scale TueMay 18 14:01:00 2023May 19 13:44:00 2023 Jardiance 10 mg tablet 1 TABLET Oral 1 T asa Daily Indication: CHF, DM2 TueMay 19 09:00:00 2023Jun 10 01:00:00 2023 acetaminophen 500 mg tablet 2 TABLETS TA BLET Oral 4 Times Daily Indication: PAIN (1-3) 2 TABLETS = 1000MGDO NOT EXCEED 3GM/DAY APAP FROM ALL SOURCES TueMay 18 15:00:00 EST 2023May 26 20:13:00 EST 2023 Ventolin HFA 90 mcg/actuation aerosol inhaler 2 puffs HFA AEROSOL WITH ADAPTER (GRAM) Inhalation PRN Every 2 Hours Indication: wheezing TueMay 19 02:00:00 EST 2023Jun 10 01:00:00 EST 2023 sulfamethoxazole 800 mg-trimethoprim 160 mg tablet 1 TABLET TABLET Oral Every 12 Hours for 5 Days Indication: UTI TueMay 18 02:00:00 2023May 20 18:47:00 EST 2023 metOLazone 2.5 mg tablet 1 TABLET TABLET Oral 1 Time Daily Indication: diuretic TueMay 17 19:01:00 2023Jun 10 01:00:00 2023 minoxidiL 2.5 mg tablet 2 TABLETS TABLET Oral 1 Time Daily Indication: HTN TueMay 17 19:01:00 2023Jun 10 01:00:00 2023 NovoLIN 70-30 FlexPen U-100 Insulin 100 unit/mL (70-30) subcutaneous 8 UNITS INSULIN PEN (ML) Subcutaneous 3 Times Daily Indication: DM WITH MEALS (8 UNITS WITH A SMALL MEAL, 10 UNITS WITH FULL MEAL) TueMay 18 08:00:00 2023May 18 14:07:00 2023 lisinopriL 20 mg tablet 1 TABLET TABLET Oral 2 Times Daily Indication: HTN TueMay 18 02:00:00 2023Jun 10 01:00:00 2023 acetaminophen 500 mg tablet 2 TABLETS TA BLET Oral PRN Every 6 Hours Indication: PAIN (1-3) 2 TABLETS = 1000MGDO NOT EXCEED 3GM/DAY APAP FROM ALL SOURCES TueMay 17 19:01:00 2023May 18 14:41:00 2023 doxazosin 4 mg tablet 1 TABLET TABLET Or al 1 Time Daily Indication: HTN TueMay 17 19:01:00 2023Jun 10 01:00:00 2023 aspirin 81 mg chewable tablet 1 TABLET TABLET,CHEWABLE Oral 1 Time Daily Indication: heart health TueMay 17 19:01:00 2023Jun 10 01:00:00 2023 insulin aspart U-100 100 unit/mL subcutaneous solution 2-5 UNITS VIAL (ML) Subcutaneous 3 Times Daily Indication: DM Sliding Scale Insulin: Insulin Units < 70 or > 400 Notify ;70-200, 0 Units;201-250, 2 Units;251-300, 3 Units;301-350, 4 Units;351-400, 5 Units;. WITH MEALS TueMay 18 02:00:00 2023May 24 12:32:00 2023 metoprolol tartrate 50 mg tablet 2.5 TABLETS TABLET Oral Every 12 Hours Indication: HTN 2.5 TABLETS = 125MG TueMay 17 19:01:00 2023May 20 17:23:00 EST [address] 40 mg granules delayed-release for susp in packet 1 PACKET GRANULES DELAYED RELEASE FOR SUSP PACKET Oral 1 Time Daily Indication: GERD TueMay 17 19:01:00 2023May 24 01:26:00 EST 2023 Eliquis 5 mg tablet 1 TABLET TABLET Oral Every 12 Hours Indication: blood thinner TueMay 18 02:00:00 EST 2023 Fri Jun 10 01:00:00 EST 2023 insulin aspart U-100 100 unit/mL subcutaneous solution 1-2 UNITS VIAL (ML) Subcutaneous 1 Time Daily Indication: DM Sliding Scale Insulin: Insulin Units < 70 or > 400 Notify ;70-200, 0 Units;201-300, 1 Units;301-400, 2 Units;. 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* Code: * Start Date: TueMay 17 00:00:00 2023 * End Date: * Text: * Retention of urine, unspecified* Code: * Start Date: TueMay 17 00:00:00 EST 2023 * End Date: * Text: * Urinary tract infection, site not specified* Code: * Start Date: TueMay 17 00:00:00 EST 2023 * End Date: * Text: * Influenza due to identified novel influenza A virus with other respiratory manifestations* Code: * Start Date: TueMay 17 00:00:00 EST 2023 * End Date: * Text: * 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 (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 of insulin* Code: * Start Date: TueMay 17 00:00:00 EST 2023 * End Date: * Text: * Type 2 diabetes mellitus with diabetic polyneuropathy* Code: * Start Date: TueMay 17 00:00:00 EST 2023 * End Date: * Text: * Personal history of other infectious and parasitic diseases* Code: * Start Date: TueMay 17 00:00:00 2023 * End Date: * Text: * Hyperlipidemia, unspecified* Code: * Start Date: TueMay 17 00:00:00 2023 * End Date: * Text: * Gout, unspecified* Code: * Start Date: TueMay 17 00:00:00 EST 2023 * End Date: * Text: * Overactive bladder* Code: * Start Date: TueMay 17 00:00:00 EST 2023 * End Date: * Text: * Unspecified macular degeneration* Code: * Start Date: TueMay 17 00:00:00 2023 * End Date: * Text: * Fatty (change of) liver, not elsewhere classified* Code: * Start Date: TueMay 17 00:00:00 2023 * End Date: * Text: * Unspecified atrial fibrillation* Code: * Start Date: TueMay 17 00:00:00 2023 * End Date: * Text: * Atherosclerosis of aorta* Code: * Start Date: TueMay 17 00:00:00 2023 * End Date: * Text: * Acute on chronic combined systolic (congestive) and diastolic (congestive) heart failure* Code: * Start Date: TueMay 17 00:00:00 2023 * End Date: * Text: * Hypertensive heart disease with heart failure* Code: * Start Date: TueMay 17 00:00:00 2023 * End Date: * Text: * retirement (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 of aspirin* Code: * Start Date: TueMay 17 00:00:00 EST 2023 * End Date: * Text: * Gastro-esophageal reflux disease without esophagitis* Code: * Start Date: TueMay 17 00:00:00 EST 2023 * End Date: * Text: * Localized edema* Code: * Start Date: TueMay 24 00:00:00 2023 * End Date: * Text: Reason for Referral Past Medical History
--- OUTSIDE RECORDS SUMMARY | 2024-11-01 10:18 | XMS_ITS | Clinical Summary ---
Author Organization [facility] Address [address] [place] [address] Care Team Providers Care Comptroller Name Role Phone Roel Haynes MD Primary Care Provider + Source Comments [facility],non-owned Affiliates and Associated Physician Practices is amultiple site organization consisting of ambulatory clinics and hospital sitesin [place], [place], [place] and [place]. This disclosure is being madepursuant to the Care Everywhere program and may not contain all information available regarding this patient. Last updated 18.[facility] Social History Tobacco Use Types Packs/Day Years Used Date Smoking Tobacco: Never Assessed Comments Unknown Sex and Gender Information Value Date Recorded Sex Assigned at Not on file Legal Sex Female 9:49 AM CDT Gender Identity Not on file Sexual Orientation Not on file Plan of Treatment Health Maintenance Due Date Last Done Comments BONE DENSITY TESTING 1940 MEDICARE AWV 12 MONTHS 1940 DTAP/TDAP/TD VACCINES (1 - Tdap) 12/09/1958 PNEUMOCOCCAL VACCINE 50+ (1 of 1 - PCV) 12/09/1989 ZOSTER VACCINE (1 of 2) 12/09/1989 Respiratory Syncytial Virus (RSV) Vaccine Pt: or over 60 yrs (1 - 1-dose 75+ series) 12/09/2014 COVID-19 VACCINE ( - 2023-2 5 season) 2023 DEPRESSION SCREENING 04/25/2024 INFLUENZA VACCINE (#1) 2024 HEPATITIS B VACCINE Aged Out No longe r eligible based on patient's age to complete this topic HIB VACCINE Aged Out No longer eligi ble based on patient's age to complete this topic HPV VACCINE Aged Out No longer eligi ble based on patient's age to complete this topic MENINGOCOCCAL (Group B) VACC INE SHARED DECISION-MAKING Aged Out No longer eligibl e based on patient's age to complete this topic MENINGOCOCCAL GROUPS A/C/Y/W VACCINE Aged Out No longer eligible b ased on patient's age to complete this topic Insurance MEDICARE AET[employer] Care Teams Comptroller Relationship Specialty Start Date End Date Roel Haynes MD [address] [address] PCP - General Family Medicine 10/04/23
--- OUTSIDE RECORDS SUMMARY | 2024-11-01 10:18 | XMS_ITS ---
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
[2024-11-01 10:37] LABS: Hematocrit 33.4 % (37.0-47.0); Hemoglobin 10.4 g/dL (12.0-15.0); Immature Granulocyte Percent A 0.8 % (0-0.5); Lymphocytes Absolute Auto 0.96 K/mm3 (0.9-3.2); Mean Corpuscular HGB Conc 31.1 g/dl (32-36); Mean Corpuscular Hemoglobin 30.3 pg (26-34); Mean Corpuscular Volume 97.4 fl (80-100); Nucleated Red Blood Cells Absolute Auto 0.000 K/mm3 (0.0-0.012); Nucleated Red Blood Cells Perc 0.0 % (0.0-0.2); Platelet Count Result 158 k/mm3 (150-375); Red Blood Count 3.43 M/mm3 (4.2-5.4); White Blood Count 8.7 K/mm3 (4.5-10.0)
[2024-11-01 10:50] LABS: Alanine Aminotransferase 15 U/L (6-35); Albumin Level 3.8 g/dL (3.5-5.1); Alkaline Phosphatase 73 U/L (38-126); Anion Gap 10 mmol/L (4-12); Aspartate Amino Transferase 23 U/L (14-36); Bilirubin,Total 0.3 mg/dL (0.2-1.3); Blood Urea Nitrogen 80 mg/dL (7-17); Calcium 9.1 mg/dL (8.4-10.2); Carbon Dioxide 30 mmol/L (22-30); Chloride 100 mmol/L (98-107); Estimated Glomerular Filt Rate 20; Glucose 186 mg/dL (65-110); Lipase 26 U/L (23-300); Potassium 4.1 mmol/L (3.4-5.0); Sodium 140 mmol/L (137-145); Total Protein 6.8 g/dL (6.3-8.2)
--- NOTE | 2024-11-01 11:21 | ED_ITS ---
HPI - Abdominal Pain General Chief Complaint: Abdominal Pain Stated Complaint: neck/back pain, abd pain, constipation x7days Time Seen by Provider: 11/01/24 11:11 History of Present Illness HPI narrative: Pt presents with epigastric abdominal pain and constipation. Pt also has neck and back pain. Pt also complains of fluid retention and has hx of CHF. Pt denies CP or SOB. Related Data Home Medications ?Medication ?Instructions ?Recorded ?Confirmed ?Last Taken ?Type acetaminophen 500 mg tablet 650 mg PO Q6H PRN pain 1-3 04/02/23 11/01/24 01/04/24 History (Tylenol Extra Strength) hydrocortisone acetate 25 mg 25 mg RECTAL ONCE PRN hemmorhoids 01/18/24 11/01/24 Unknown History rectal suppository (Anusol-HC) tolnaftate 1 % topical powder 1 applic topical Q12HR PRN 01/18/24 11/01/24 Unknown History irritation dextromethorphan-guaifenesin 10 10 ml PO Q4-6H PRN Cough 03/18/24 11/01/24 Unknown History mg-100 mg/5 mL oral liquid (Safe Tussin DM) insulin glargine 100 unit/mL (3 16 unit subcut DAILY 03/18/24 11/01/24 Unknown History mL) subcutaneous pen (Basaglar KwikPen U-100 Insulin) hydralazine 25 mg tablet See Rx Instructions .Route .COMPLEX 03/30/24 11/01/24 Unknown History budesonide-formoterol HFA 80 See Rx Instructions .Route .COMPLEX 11/01/24 11/01/24 Unknown History mcg-4.5 mcg/actuation aerosol inhaler (Breyna) cyanocobalamin (vitamin B-12) 1,000 mcg PO 1200 11/01/24 11/01/24 Unknown History 1,000 mcg tablet (Vitamin B-12) doxazosin 8 mg tablet See Rx Instructions .Route .COMPLEX 11/01/24 11/01/24 Unknown History insulin aspart U-100 100 unit/mL See Rx Instructions subcut TID 11/01/24 11/01/24 Unknown History (3 mL) subcutaneous pen (Novolog FlexPen U-100 Insulin aspart) metolazone 5 mg tablet 10 mg PO 1200 11/01/24 11/01/24 Unknown History Allergies Allergy/AdvReac Type Severity Reaction Status Date / Time Penicillins Allergy Severe HIVES Verified 11/01/24 15:51 hydrocodone AdvReac Severe SEVERE GI Verified 11/01/24 15:51 UPSET, N/V nitrofurantoin AdvReac Severe Swelling Verified 11/01/24 15:51 propoxyphene AdvReac Severe GI UPSET Verified 11/01/24 15:51 acetaminophen (From AdvReac Unknown Unknown Verified 11/01/24 15:51 Darvocet-N) adhesive tape AdvReac Unknown Unknown Verified 11/01/24 15:51 amlodipine AdvReac Unknown Unknown Verified 11/01/24 15:51 glimepiride AdvReac Unknown Unknown Verified 11/01/24 15:51 metformin AdvReac Unknown Unknown Verified 11/01/24 15:51 omeprazole (From Prilosec) AdvReac Unknown Unknown Verified 11/01/24 15:51 pioglitazone AdvReac Unknown Unknown Verified 11/01/24 15:51 simvastatin (From Zocor) AdvReac Unknown Unknown Verified 11/01/24 15:51 Review of Systems 2 Review of Systems: All systems reviewed & are unremarkable except as noted in HPI and below PMFSH Past Medical History Medical History (Updated 11/01/24 @ 14:17 by Francesca Arroyo III, DO) Macular degeneration Chronic anticoagulation C. difficile colitis B12 deficiency Gout Gastroesophageal reflux disease Acute psychosis Asthma Chronic systolic (congestive) heart failure Nonexudative age-related macular degeneration, right eye, intermediate dry stage Hepatic steatosis Aortic atherosclerosis Overactive bladder Acquired hypertriglyceridemia GERD (gastroesophageal reflux disease) Hypertension Surgical History Surgical History History of repair of rotator cuff History of cholecystectomy Family History Family History Father Asthma Cerebrovascular accident Family history of diabetes mellitus in first degree relative Sibling Family history of diabetes mellitus in first degree relative Family history of malignant neoplasm of urinary bladder Mother Family history of heart disease in male family member before age 55 Other Family history of arthritis Hypertension Social History Social History Social History: Surrogate medical decision maker: Julio Ventura, son. Code status: Full code. Smoking packs per day: 1 Smoking cigarettes per day: 20.0 Years smoked: 15 Smoking pack-years: 15.00 Smoking status: Never smoker Second hand tobacco smoke exposure: Yes Alcohol intake: never Substance use: never Substance use type: does not use Do You Feel Safe in your Home?: Yes Lack of Transportation: No Lack of Food: Never True Current Housing: I Have Housing Concerned About Future Housing: No Difficulty Paying Gas/Electric Bills: No Difficulty Paying for Meds: No Currently Unemployed: No Education: High School Diploma/GED Difficulty w/ Childcare or Family Care: No Living arrangements: with family Additional living arrangements comments: Lives in [place]. Son Julio stays with her. Occupation/Education: retired Spiritual care concerns: No Exam 2 Const: General: healthy appearing and no acute distress Nutritional Appearance: well nourished Orientation/consciousness: patient oriented x3 Limitations: no limitations Resp: Effort & Inspection: normal respiratory effort Auscultation: crackles Cardio: Rate: regular rate Rhythm: regular rhythm GI: GI Palp: Yes Soft to palpation and Yes Tenderness to palpation present (GI) (epigastric region) Auscultation: normal bowel sounds Back/Spine/Pelvis: Back: no CVA tenderness Skin: General skin exam: normal color Rashes: no rashes Wounds: no wounds Neuro: General: patient oriented x3, moves all extremities, no meningeal signs and no focal motor deficits Cranial nerves: Yes Nystagmus not present Extrem: General: normal to inspection and no clubbing, cyanosis or edema Psych: Mental Status: mental status grossly normal Affect: normal affect Course Vital Signs Vital signs: Vital Signs Temperature 97.6 F 11/01/24 10:21 Pulse Rate 62 11/01/24 10:21 Respiratory Rate 16 11/01/24 10:21 Blood Pressure 108/56 L 11/01/24 10:21 Pulse Oximetry 95 11/01/24 10:21 Oxygen Delivery Room Air 11/01/24 10:21 Temperature 98.1 F 11/01/24 15:42 Pulse Rate 59 L 11/01/24 15:42 Respiratory Rate 18 11/01/24 15:42 Blood Pressure 112/42 L 11/01/24 15:42 Pulse Oximetry 94 11/01/24 15:42 Oxygen Delivery Room Air 11/01/24 16:16 MDM - Abdominal Pain MDM Narrative Medical decision making narrative: Pt presents with several complaints. Pt has some fluid retention and sob and has CHF history. Pt has both lower and epigastric abdominal pain. will get labs and ct and cxr to rule out intraabdominal issues including pancreatitis or cholecystitis or diverticulitis as well as chf. ekg unremarkable. cxr mild congestion. pt has renal insufficiency and admits to not eating or drinking well and has vomited a few times. may be dehydrated and has diverticulitis on ct. discussed with Martha and agrees to admit. will start on antibiotics and give fluids slowly. Lab Data 11/01/24 10:32 11/01/24 16:04 Labs: Lab Results 11/01/24 11/01/24 Range/Units 10:32 13:12 WBC 8.7 (4.5-10.0) K/mm3 RBC 3.43 L (4.2-5.4) M/mm3 Hgb 10.4 L (12.0-15.0) g/dL Hct 33.4 L (37.0-47.0) % MCV 97.4 (80-100) fl MCH 30.3 (26-34) pg MCHC 31.1 L (32-36) g/dl RDW 13.6 (11.5-14.5) % Plt Count 158 (150-375) k/mm3 MPV 9.7 (7.4-10.4) fl Immature Gran % (Auto) 0.8 H (0-0.5) % Neut % (Auto) 78.9 H (45.5-73.1) % Lymph % (Auto) 11.0 L (18.3-44.2) % [place] % (Auto) 7.0 (2.6-8.5) % Eos % (Auto) 1.7 (0-4.4) % Baso % (Auto) 0.6 (0.2-1.2) % Lymph # (Auto) 0.96 (0.9-3.2) K/mm3 [place] # (Auto) 0.6 (0.1-0.6) K/mm3 Eos # (Auto) 0.2 (0-0.3) K/mm3 Baso # (Auto) 0.1 (0.0-0.1) K/mm3 Abs Immat Gran (auto) 0.07 H (0.00-0.031) K/mm3 Absolute Neuts (auto) 6.9 H (1.3-6.7) K/mm3 Absolute Nucleated RBC 0.000 (0.0-0.012) K/mm3 Nucleated RBC % 0.0 (0.0-0.2) % Sodium 140 (137-145) mmol/L Potassium 4.1 (3.4-5.0) mmol/L Chloride 100 (98-107) mmol/L Carbon Dioxide 30 (22-30) mmol/L Anion Gap 10 (4-12) mmol/L BUN 80 H D (7-17) mg/dL Creatinine 2.36 H (0.7-1.0) mg/dL Estim Creat Clear Calc Not Reportable Estimated GFR 20 L (59 - ) Glucose 186 H (65-110) mg/dL Calcium 9.1 (8.4-10.2) mg/dL Total Bilirubin 0.3 (0.2-1.3) mg/dL AST 23 (14-36) U/L ALT 15 (6-35) U/L Alkaline Phosphatase 73 (38-126) U/L NT-Pro-B Natriuret Pep 376 H (19.9-100) pg/mL Total Protein 6.8 (6.3-8.2) g/dL Albumin 3.8 (3.5-5.1) g/dL Lipase 26 (23-300) U/L Urine Color Yellow (Yellow) Urine Appearance Clear (Clear) Urine pH 5.5 (5.0-9.0) Ur Specific [place] 1.009 (1.001-1.035) Urine Protein Negative (Negative) mg/dL Urine Glucose (UA) Negative (Negative) mg/dL Urine Ketones Negative (Negative) mg/dL Ur Blood (Man) Negative (Negative) Urine Nitrate Negative (Negative) Urine Bilirubin Negative (Negative) Urine Urobilinogen 0.2 (<2.0) mg/dL Leukocyte Esterase Rfl Negative (Negative) AIDAN/UL Imaging Data Radiologist's impression: ITS Impressions Abdomen/Pelvis CT 11/01/24 12:11 IMPRESSION: 1. Radiographic uncomplicated proximal sigmoid diverticulitis. 2. No significant interval change since 12/23/2023 in a 13.0 cm Bosniak 3 complex cystic left renal lesion. 3. Small portion of the anterior wall of a segment of small bowel projects into the orifice of a small fat-containing umbilical hernia. No bowel obstruction. Chest X-Ray 11/01/24 13:44 IMPRESSION: Moderate cardiomegaly. Bibasilar atelectasis. Mild pulmonary vascular congestion. Discharge Plan Discharge Clinical Impression: Acute renal insufficiency, Acute dehydration, Diverticulitis Patient Disposition: Still a Patient Condition: Stable
--- OUTSIDE RECORDS SUMMARY | 2024-11-01 11:28 | XMS_ITS ---
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
--- OUTSIDE RECORDS SUMMARY | 2024-11-01 11:28 | XMS_ITS | Clinical Summary ---
Author Organization [facility] Address [address] [place] [address] Care Team Providers Care Service Counselor Name Role Phone Roel Haynes MD Primary Care Provider + Source Comments [facility],non-owned Affiliates and Associated Physician Practices is amultiple site organization consisting of ambulatory clinics and hospital sitesin [place], [place], [place] and [place]. This disclosure is being madepursuant to the Care Everywhere program and may not contain all information available regarding this patient. Last updated 18.[facility] Signature Social History Tobacco Use Types Packs/Day Years [...] this topic Insurance MEDICARE AET[employer] Care Teams Service Counselor Relationship Specialty Start Date End Date Roel Haynes MD [address] [address] PCP - General Family Medicine 10/04/23
[2024-11-01] MEDS: KETOROLAC 15 MG/ML VIAL (*BKC) IV PUSH (11:44)
[2024-11-01 13:28] LABS: Add Urine Microscopic? NO; Appearance Urine Clear (Clear); Glucose Urine UA Negative (Negative); Leukocyte Esterase Ur Negative LEU/UL (Negative); Nitrate Urine Negative (Negative); Specific Grav Ur 1.009 (1.001-1.035)
[2024-11-01 13:54] LABS: NT Pro B Type Natriuretic Pept 376 pg/mL (19.9-100)
[2024-11-01] MEDS: levoFLOXacin 500 MG/D5W 100 ML 500 MG/100 ML BAG 100 MG IVPB (14:42)
--- NOTE | 2024-11-01 15:19 | P.HP_ITS ---
H&P: HPI History of Present Illness Date/Time: 11/01/24 15:19 Chief Complaint: Abdominal pain Narrative: 83-year-old past medical history of CHF, asthma, gout, history of C diff and hepatic steatosis with multiple complaints including abdominal pain and constipation. Patient states that she has not had bowel movement in about 7 days. She tried a suppository with no luck. Due to severe cramping and abdominal pain she came to the hospital. Patient denies nausea vomiting fever chills. Work in the ED shows anemia at 10.4, BUN of 80, creatinine of 2.36, GFR 20, glucose of 186, BNP of 376, UA negative for infection. Chest x-ray shows moderate cardiomegaly, bibasilar atelectasis, and mild pulmonary vascular congestion. CT abdomen pelvis show sigmoid diverticulitis, unchanged renal cysts, umbilical hernia containing fat. Review of Systems Review of Systems: 12 systems were reviewed and are negativ e except for as per HPI. [facility] Past Medical History Medical History (Updated 11/01/24 @ 14:17 by Francesca Arroyo III, DO) Macular degeneration Chronic anticoagulation C. difficile colitis B12 deficiency Gout Gastroesophageal reflux disease Acute psychosis Asthma Chronic systolic (congestive) heart failure Nonexudative age-related macular degeneration, right eye, intermediate dry stage Hepatic steatosis Aortic atherosclerosis Overactive bladder Acquired hypertriglyceridemia GERD (gastroesophageal reflux disease) Hypertension Surgical History Surgical History History of repair of rotator cuff History of cholecystectomy Family History Family History Father Asthma Cerebrovascular accident Family history of diabetes mellitus in first degree relative Sibling Family history of diabetes mellitus in first degree relative Family history of malignant neoplasm of urinary bladder Mother Family history of heart disease in male family member before age 55 Other Family history of arthritis Hypertension Social History Social History Social History: Surrogate medical decision maker: Julio Ventura, gila. Code status: Full code. Smoking packs per day: 1 Smoking cigarettes per day: 20.0 Years smoked: 15 Smoking pack-years: 15.00 Smoking status: Never smoker Second hand tobacco smoke exposure: Yes Alcohol intake: never Substance use: never Substance use type: does not use Do You Feel Safe in your Home?: Yes Lack of Transportation: No Lack of Food: Never True Current Housing: I Have Housing Concerned About Future Housing: No Difficulty Paying Gas/Electric Bills: No Difficulty Paying for Meds: No Currently Unemployed: No Education: High School Diploma/GED Difficulty w/ Childcare or Family Care: No Living arrangements: with family Additional living arrangements comments: Lives in [place]. Son Julio stays with her. Occupation/Education: retired Spiritual care concerns: No Meds Home Medications and Allergies Home Medications ?Medication ?Instructions ?Recorded ?Confirmed ?Type acetaminophen 500 mg tablet 650 mg PO Q6H PRN pain 1-3 04/02/23 11/01/24 History (Tylenol Extra Strength) pen needle, diabetic 31 gauge x #150 ea 08/08/23 08/14/24 Rx /16 blood-glucose,mattress maker,cont #1 ea 09/01/23 08/14/24 Rx (FreeStyle Calixto 3 [place]) ferrous sulfate 142 mg (45 mg 142 mg PO DAILY@0800 #30 tabs 10/06/23 11/01/24 Rx iron) tablet,extended release (Slow Release Iron) folic acid 1 mg tablet 1 mg PO DAILY #30 tabs 12/24/23 11/01/24 Rx metoprolol tartrate 75 mg tablet 75 mg PO BID #180 tabs 01/16/24 11/01/24 Rx hydrocortisone acetate 25 mg 25 mg RECTAL ONCE PRN hemmorhoids 01/18/24 11/01/24 History rectal suppository (Anusol-HC) tolnaftate 1 % topical powder 1 applic topical Q12HR PRN 01/18/24 11/01/24 History irritation blood-glucose sensor (FreeStyle #4 ea 02/10/24 08/14/24 Rx Calixto 3 Sensor device) sucralfate 100 mg/mL oral 1,000 mg (10 mL) PO ACHS PRN GERD 02/23/24 11/01/24 Rx suspension #420 mL albuterol sulfate 90 mcg/actuation 2 puff inhalation Q2H PRN sob, 03/16/24 11/01/24 Rx aerosol inhaler (Ventolin HFA) wheezing #8.5 grams dextromethorphan-guaifenesin 10 10 ml PO Q4-6H PRN Cough 11/24/24 07/10/25 History mg-100 mg/5 mL oral liquid (Safe Tussin DM) insulin glargine 100 unit/mL (3 16 unit subcut DAILY 03/18/24 11/01/24 History mL) subcutaneous pen (Basaglar KwikPen U-100 Insulin) blood-glucose sensor (FreeStyle #6 ea 03/21/24 08/14/24 Rx Calixto 2 Plus Sensor device) hydralazine 25 mg tablet See Rx Instructions .Route .COMPLEX 03/30/24 11/01/24 History ondansetron 4 mg disintegrating See Rx Instructions .Route 05/15/24 11/01/24 Rx tablet .COMPLEX #20 tabs solifenacin 10 mg tablet 10 mg PO DAILY #30 tabs 09/14/24 11/01/24 Rx spironolactone 25 mg tablet See Rx Instructions .Route 09/24/24 11/01/24 Rx .COMPLEX #90 tabs furosemide 40 mg tablet 80 mg (2 x 40 mg) PO DAILY #180 10/03/24 11/01/24 Rx tabs pantoprazole 40 mg tablet,delayed 40 mg PO QAM #90 tabs 10/03/24 11/01/24 Rx release sacubitril 24 mg-valsartan 26 mg See Rx Instructions .Route 10/16/24 11/01/24 Rx tablet (Entresto) .COMPLEX #60 tabs levofloxacin 500 mg tablet 500 mg PO DAILY #7 tabs 10/27/24 11/01/24 Rx budesonide-formoterol HFA 80 See Rx Instructions .Route .COMPLEX 11/01/24 11/01/24 History mcg-4.5 mcg/actuation aerosol inhaler (Breyna) cyanocobalamin (vitamin B-12) 1,000 mcg PO 1200 11/01/24 11/01/24 History 1,000 mcg tablet (Vitamin B-12) doxazosin 8 mg tablet See Rx Instructions .Route .COMPLEX 11/01/24 11/01/24 History insulin aspart U-100 100 unit/mL See Rx Instructions subcut TID 11/01/24 11/01/24 History (3 mL) subcutaneous pen (Novolog FlexPen U-100 Insulin aspart) metolazone 5 mg tablet 10 mg PO 1200 11/01/24 11/01/24 History Allergies Allergy/AdvReac Type Severity Reaction Status Date / Time Penicillins Allergy Severe HIVES Verified 11/01/24 15:51 hydrocodone AdvReac Severe SEVERE GI Verified 11/01/24 15:51 UPSET, N/V nitrofurantoin AdvReac Severe Swelling Verified 11/01/24 15:51 propoxyphene AdvReac Severe GI UPSET Verified 11/01/24 15:51 acetaminophen (From AdvReac Unknown Unknown Verified 11/01/24 15:51 Darvocet-N) adhesive tape AdvReac Unknown Unknown Verified 11/01/24 15:51 amlodipine AdvReac Unknown Unknown Verified 11/01/24 15:51 glimepiride AdvReac Unknown Unknown Verified 11/01/24 15:51 metformin AdvReac Unknown Unknown Verified 11/01/24 15:51 omeprazole (From Prilosec) AdvReac Unknown Unknown Verified 11/01/24 15:51 pioglitazone AdvReac Unknown Unknown Verified 11/01/24 15:51 simvastatin (From Zocor) AdvReac Unknown Unknown Verified 11/01/24 15:51 Vital Signs Vital Signs - 24 hr 11/01/24 10:21 11/01/24 10:24 11/01/24 10:25 Temperature 97.6 F Pulse Rate 62 Respiratory Rate 16 Blood Pressure 108/56 L 108/56 L Pulse Oximetry 95 92 96 Oxygen Delivery Room Air 11/01/24 10:32 11/01/24 10:45 11/01/24 11:56 Temperature Pulse Rate Respiratory Rate Blood Pressure Pulse Oximetry 95 92 95 Oxygen Delivery 11/01/24 12:00 11/01/24 12:38 11/01/24 12:45 Temperature Pulse Rate Respiratory Rate Blood Pressure Pulse Oximetry 95 96 95 Oxygen Delivery 11/01/24 13:05 11/01/24 13:15 11/01/24 13:30 Temperature Pulse Rate 80 Respiratory Rate 16 Blood Pressure 136/84 Pulse Oximetry 97 93 97 Oxygen Delivery 11/01/24 15:13 Temperature Pulse Rate 74 Respiratory Rate 16 Blood Pressure 128/86 Pulse Oximetry 98 Oxygen Delivery Exam Narrative: General: well appearing, appears stated age. HEENT: normocephalic, atraumatic. Mucous membranes moist. EOMI, PERRLA, bilateral sclera anicteric, no conjunctival injection. Neck supple without JVD, lymphadenopathy, or bruit. Respiratory: clear to ascultation bilaterally. No rales/rhonic/wheezes. Cardiovascular: Regular rate and rhythm, normal S1-S2 upon ascultation. No murmurs, rubs, or clicks. PMI is nondisplaced, capillary refill less than 3 second. Abdomen: Soft, round, no pulsatile masses, nondistended and nontender. No rebound, no guarding. No CVA tenderness, no hepatosplenomegaly. Bowel sounds present to all four quadrants. No high pitch or tinkling sounds, resonant to percussion. Extremities: No cyanosis, clubbing, or edema present. Pulses are palpable 2/2. Active ROM to all four extremities. Neuro: Alert and orientated x 4. PERRLA. Cranial nerves 2-12 intact without focal deficit. Skin: Warm, dry, and intact, without rash, erythema, or lesion. Psych: pleasant, cooperative, normal speech, normal affect, no hallucinations, no dysarthia H&P: Results Labs Labs: Short CBC 11/01/24 Range/Units 10:32 WBC 8.7 (4.5-10.0) K/mm3 Hgb 10.4 L (12.0-15.0) g/dL Hct 33.4 L (37.0-47.0) % Plt Count 158 (150-375) k/mm3 BMP 11/01/24 10:32 Sodium 140 Potassium 4.1 Chloride 100 Carbon Dioxide 30 BUN 80 H D Creatinine 2.36 H Glucose 186 H Calcium 9.1 Liver Function 11/01/24 Range/Units 10:32 Total Bilirubin 0.3 (0.2-1.3) mg/dL AST 23 (14-36) U/L ALT 15 (6-35) U/L Alkaline Phosphatase 73 (38-126) U/L Albumin 3.8 (3.5-5.1) g/dL Urine 11/01/24 Range/Units 13:12 Urine Color Yellow (Yellow) Urine Appearance Clear (Clear) Urine pH 5.5 (5.0-9.0) Ur Specific [place] 1.009 (1.001-1.035) Urine Protein Negative (Negative) mg/dL Urine Glucose (UA) Negative (Negative) mg/dL Assessment and Plan Assessment and plan (1) Diverticulitis: Code(s): K57.92 - Diverticulitis of intestine, part unspecified, without perforation or abscess without bleeding Status: Acute Assessment and Plan: IVF Levofloxacin Pain management Bowel protocol (2) ANGELINA (acute kidney injury): Code(s): N17.9 - Acute kidney failure, unspecified Status: Acute Assessment and Plan: Creatinine on admission 2.3, baseline 1 IVF Monitor for fluid overload BMP in morning (3) Constipation: Qualifiers: Constipation type: unspecified constipation type Qualified Code(s): K59.00 - Constipation, unspecified Code(s): K59.00 - Constipation, unspecified Status: Acute Assessment and Plan: Severe seen on CT Aggressive bowel protocol (4) Diastolic congestive heart failure: Code(s): I50.30 - Unspecified diastolic (congestive) heart failure Status: Acute Assessment and Plan: Currently holding Lasix, zaroxolyn, and spironolactone due to ANGELINA Monitor for fluid overload (5) Hypertension: Qualifiers: Hypertension type: unspecified Qualified Code(s): I10 - Essential (primary) hypertension Code(s): I10 - Essential (primary) hypertension Status: Chronic Assessment and Plan: Continue hydralazine (6) Paroxysmal atrial fibrillation: Code(s): I48.0 - Paroxysmal atrial fibrillation Status: Acute Assessment and Plan: Continue Entresto, metoprolol Cardura, (7) Type 2 diabetes mellitus with hyperglycemia: Code(s): E11.65 - Type 2 diabetes mellitus with hyperglycemia Status: Acute Assessment and Plan: Diabetic diet Accu-Cheks a.c. HS SSI and Lantus Quality VTE Prophylaxis VTE prophylaxis: mechanical ordered and pharmacologic ordered Hospitalist MIPS Advance Care Plan I have confirmed that the patient's Advanced Care Plan is present, code status is documented, or surrogate decision maker is listed in patient medical record.: Yes Medication Reconciliation I have utilized all available resources to obtain, update and review the patients current medications (includes all prescriptions, OTC, herbals, cannabis, and nutritional supplements).: Yes
[2024-11-01] MEDS: LACTATED RINGERS 1,000 ML 125 ML IV CONT ×2 (15:41→23:20)
--- NOTE | 2024-11-01 15:51 | ADMGEN ---
This patient, Constanza Ventura, was admitted to Medical Room 249-01. Patient/family oriented to hospital policies and general routines including ID bracelet, bed and alarms, visiting hours, pain management, procedures, bathroom and other care routines, personal items, smoking policy, room service/diet, and visiting hours. Information on how to activate the Rapid Response Team has been discussed. Patient/Family are encouraged to report perceived risks to care and to ask questions if they do not understand what they are told or what they should do.
[2024-11-01] MEDS: BISACODYL 5 MG TABLET EC PO (16:20)
[2024-11-01 16:31] LABS: Anion Gap 8 mmol/L (4-12); Blood Urea Nitrogen 83 mg/dL (7-17); Calcium 9.0 mg/dL (8.4-10.2); Carbon Dioxide 32 mmol/L (22-30); Chloride 97 mmol/L (98-107); Estimated Glomerular Filt Rate 20; Glucose 182 mg/dL (65-110); Potassium 4.2 mmol/L (3.4-5.0); Sodium 137 mmol/L (137-145)
[2024-11-01] MEDS: SACUBITRIL/VALSARTAN 24-26 MG TABLET 1 TAB BY MOUTH (20:43)
[2024-11-01] MEDS: METOPROLOL TARTRATE 25 MG TABLET 75 MG PO (20:44)
[2024-11-01] MEDS: INSULIN GLARGINE (*BKC) 100 UNITS/ML 10 UNITS SUB-Q (20:53)
[2024-11-02] VITALS (9 sets, daily range): BP systolic 116–140; BP diastolic 44–96; PULSE 69–82; RESP 18–20; TEMP 36.8–37.2; O2SAT 91–97
[2024-11-02 05:00] LABS: Hematocrit 32.6 % (37.0-47.0); Hemoglobin 10.2 g/dL (12.0-15.0); Immature Granulocyte Percent A 0.7 % (0-0.5); Lymphocytes Absolute Auto 1.18 K/mm3 (0.9-3.2); Mean Corpuscular HGB Conc 31.3 g/dl (32-36); Mean Corpuscular Hemoglobin 30.6 pg (26-34); Mean Corpuscular Volume 97.9 fl (80-100); Nucleated Red Blood Cells Absolute Auto 0.000 K/mm3 (0.0-0.012); Nucleated Red Blood Cells Perc 0.0 % (0.0-0.2); Platelet Count Result 159 k/mm3 (150-375); Red Blood Count 3.33 M/mm3 (4.2-5.4); White Blood Count 10.7 K/mm3 (4.5-10.0)
[2024-11-02 05:16] LABS: Anion Gap 6 mmol/L (4-12); Blood Urea Nitrogen 70 mg/dL (7-17); Calcium 9.1 mg/dL (8.4-10.2); Carbon Dioxide 32 mmol/L (22-30); Chloride 101 mmol/L (98-107); Estimated CRCL calculation 20 ml/min; Estimated Glomerular Filt Rate 26; Glucose 100 mg/dL (65-110); Potassium 4.0 mmol/L (3.4-5.0); Sodium 139 mmol/L (137-145)
--- NOTE | 2024-11-02 06:19 | P.PNIM_ITS ---
Progress Note: A&P Assessment and Plan (1) Diverticulitis: Code(s): K57.92 - Diverticulitis of intestine, part unspecified, without perforation or abscess without bleeding Status: Acute Assessment and Plan: IVF Levofloxacin x1 but uncomplicated so can monitor off antibiotics. Start if pain not resolved Check inflammatory markers Pain management Bowel protocol (2) ANGELINA (acute kidney injury): Code(s): N17.9 - Acute kidney failure, unspecified Status: Acute Assessment and Plan: Creatinine on admission 2.3, baseline 1, improving to 1.83 IVF Monitor for fluid overload Follow BMP Hold diuretics (3) Constipation: Qualifiers: Constipation type: unspecified constipation type Qualified Code(s): K59.00 - Constipation, unspecified Code(s): K59.00 - Constipation, unspecified Status: Acute Assessment and Plan: Severe seen on CT Aggressive bowel protocol --Add lactulose, schedule senna (4) Diastolic congestive heart failure: Code(s): I50.30 - Unspecified diastolic (congestive) heart failure Status: Acute Assessment and Plan: Currently holding Lasix, zaroxolyn, and spironolactone due to ANGELINA Monitor for fluid overload Prior TTE with LVEF >70% and grade 1 diastolic dysfunction (5) Hypertension: Qualifiers: Hypertension type: unspecified Qualified Code(s): I10 - Essential (primary) hypertension Code(s): I10 - Essential (primary) hypertension Status: Chronic Assessment and Plan: Continue hydralazine (6) Paroxysmal atrial fibrillation: Code(s): I48.0 - Paroxysmal atrial fibrillation Status: Acute Assessment and Plan: Continue Entresto, metoprolol, Cardura (7) Type 2 diabetes mellitus with hyperglycemia: Code(s): E11.65 - Type 2 diabetes mellitus with hyperglycemia Status: Acute Assessment and Plan: Home meds: Diabetic diet Accu-Cheks a.c. HS SSI and Lantus Time Spent With Patient Time: 58 minutes Subjective Date/time seen: 11/02/24 06:19 Interval history: Still hasn't had a BM. Minimal pain Creatinine improving Review of Systems Review of Systems: 12 systems were reviewed and are negativ e except for as per HPI. Exam Narrative: General: well appearing, appears stated age. HEENT: normocephalic, atraumatic. Mucous membranes moist. EOMI, PERRLA, bilateral sclera anicteric, no conjunctival injection. Neck supple without JVD, lymphadenopathy, or bruit. Respiratory: clear to ascultation bilaterally. No rales/rhonic/wheezes. Cardiovascular: Regular rate and rhythm, normal S1-S2 upon ascultation. No murmurs, rubs, or clicks. PMI is nondisplaced, capillary refill less than 3 second. Abdomen: Soft, round, no pulsatile masses, nondistended and nontender. No rebound, no guarding. No CVA tenderness, no hepatosplenomegaly. Bowel sounds present to all four quadrants. No high pitch or tinkling sounds, resonant to percussion. Extremities: No cyanosis, clubbing, or edema present. Pulses are palpable 2/2. Active ROM to all four extremities. Neuro: Alert and orientated x 4. PERRLA. Cranial nerves 2-12 intact without focal deficit. Skin: Warm, dry, and intact, without rash, erythema, or lesion. Psych: pleasant, cooperative, normal speech, normal affect, no hallucinations, no dysarthia Objective Data Vital Signs Vital Signs: Vital Signs - 24 hr 11/01/24 10:21 11/01/24 10:24 11/01/24 10:25 Temperature 97.6 F Pulse Rate 62 Respiratory Rate 16 Blood Pressure 108/56 L 108/56 L Pulse Oximetry 95 92 96 Oxygen Delivery Room Air 11/01/24 10:32 11/01/24 10:45 11/01/24 11:56 Temperature Pulse Rate Respiratory Rate Blood Pressure Pulse Oximetry 95 92 95 Oxygen Delivery 11/01/24 12:00 11/01/24 12:38 11/01/24 12:45 Temperature Pulse Rate Respiratory Rate Blood Pressure Pulse Oximetry 95 96 95 Oxygen Delivery 11/01/24 13:05 11/01/24 13:15 11/01/24 13:30 Temperature Pulse Rate 80 Respiratory Rate 16 Blood Pressure 136/84 Pulse Oximetry 97 93 97 Oxygen Delivery 11/01/24 15:13 11/01/24 15:42 11/01/24 16:16 Temperature 98.1 F Pulse Rate 74 59 L Respiratory Rate 16 18 Blood Pressure 128/86 112/42 L Pulse Oximetry 98 94 Oxygen Delivery Room Air 11/01/24 19:46 11/01/24 20:40 11/01/24 20:44 Temperature 98 F Pulse Rate 65 74 74 Respiratory Rate 18 18 Blood Pressure 124/43 L Pulse Oximetry 93 93 Oxygen Delivery Room Air 11/01/24 23:29 11/02/24 04:06 Temperature 98.5 F Pulse Rate 70 Respiratory Rate 18 Blood Pressure 129/53 L Pulse Oximetry 93 95 Oxygen Delivery Room Air Intake/Output Intake/Output: Intake & Output 10/30/24 10/31/24 11/01/24 11/02/24 23:59 23:59 23:59 23:59 Intake Total 1240 150 Output Total 300 900 Balance 940 -750 Meds/Results Medications: Active Medications Generic Name Dose Route Start Last Admin Trade Name Freq PRN Reason Stop Dose Admin Albuterol 2 puff 11/01/24 18:07 Albuterol Sulfate (*Sp) Aerosol 1 Puff INHALATION Q2HRT PRN sob, wheezing Bisacodyl 10 mg 11/01/24 21:49 Bisacodyl 10 Mg Suppository RECTAL QAM PRN Constipation Dextrose 12.5 gm 11/01/24 15:33 Dextrose 50% 25 Gm/50 Ml Syringe IV PUSH PRN PRN Hypoglycemia Protocol Docusate Sodium 100 mg 11/02/24 09:00 Docusate Sodium 100 Mg Capsule PO DAILY ROSEMARIE Doxazosin Mesylate 8 mg 11/02/24 12:00 Doxazosin Mesylate 4 Mg Tablet BY MOUTH DAILY@1200 ROSEMARIE Glucagon 1 mg 11/01/24 15:33 Glucagon For Inj 1 Mg Vial IM PRN PRN Hypoglycemia Protocol Glucose 15 gm 11/01/24 15:33 Glucose Oral Gel 15 Gm Of Glucse In 37.5 Gm Tube PO PRN PRN Hypoglycemia Protocol Heparin Sodium (Porcine) 5,000 units 11/02/24 09:00 Heparin Sodium 5,000 Units/Ml Vial SUB-Q Q12HR ROSEMARIE Hydralazine HCl 0 mg 11/01/24 21:55 Hydralazine Hcl 25 Mg Tablet BY MOUTH .COMPLEX ROSEMARIE Lactated Ringer's 1,000 mls @ 125 mls/hr 11/01/24 14:20 11/01/24 23:20 Lr - Lactated Ringers Iv IV CONT 125 mls/hr .Q8H ROSEMARIE Administration Dextrose 1,000 mls @ 100 mls/hr 11/01/24 15:33 Dextrose 5% 1,000 Ml IVPB PRN PRN Hypoglycemia Protocol Insulin Aspart 2 - 5 units 11/01/24 17:00 11/01/24 17:14 Insulin Aspart (*Bkc) 100 Units/Ml SUB-Q Not Given TIDWM [facility] Protocol Insulin Aspart 1 - 2 units 11/01/24 21:00 11/01/24 21:38 Insulin Aspart (*Bkc) 100 Units/Ml SUB-Q Not Given HS [facility] Protocol Insulin Glargine 10 units 11/01/24 21:00 11/01/24 20:53 Insulin Glargine (*Bkc) 100 Units/Ml SUB-Q 10 units HS [facility] Administration Metoprolol Tartrate 75 mg 11/01/24 21:00 11/01/24 20:44 Metoprolol Tartrate 25 Mg Tablet PO 75 mg Q12HR [facility] Administration Miscellaneous Information 0 each 11/01/24 00:01 Hydralazine Clarify Dose External Med Record Shows Pt Takes 25mg 1&1/2 Tablets Tid XX 12/01/24 00:00 CLARIFY ROSEMARIE Pantoprazole Sodium 40 mg 11/02/24 09:00 Pantoprazole 40 Mg Tablet PO QAM ROSEMARIE Sacubitril/Valsartan 1 tab 11/01/24 21:00 11/01/24 20:43 Sacubitril/Valsartan 24-26 Mg Tablet BY MOUTH 1 tab Q12HR [facility] Administration Fluticasone/Salmeterol 2 puff 11/01/24 20:00 Fluticasone/Salmeterol 45-21 Mcg Inhaler 1 Puff INHALATION Q12HRT [facility] Radiology Results: ITS Impressions Abdomen/Pelvis CT 11/01/24 12:11 IMPRESSION: 1. Radiographic uncomplicated proximal sigmoid diverticulitis. 2. No significant interval change since 12/23/2023 in a 13.0 cm Bosniak 3 complex cystic left renal lesion. 3. Small portion of the anterior wall of a segment of small bowel projects into the orifice of a small fat-containing umbilical hernia. No bowel obstruction. Chest X-Ray 11/01/24 13:44 IMPRESSION: Moderate cardiomegaly. Bibasilar atelectasis. Mild pulmonary vascular congestion. Labs Labs: Laboratory Results - last 24 hr 11/01/24 11/01/24 11/01/24 10:32 13:12 16:04 WBC 8.7 RBC 3.43 L Hgb 10.4 L Hct 33.4 L MCV 97.4 MCH 30.3 MCHC 31.1 L RDW 13.6 Plt Count 158 MPV 9.7 Immature Gran % (Auto) 0.8 H Neut % (Auto) 78.9 H Lymph % (Auto) 11.0 L [place] % (Auto) 7.0 Eos % (Auto) 1.7 Baso % (Auto) 0.6 Lymph # (Auto) 0.96 [place] # (Auto) 0.6 Eos # (Auto) 0.2 Baso # (Auto) 0.1 Abs Immat Gran (auto) 0.07 H Absolute Neuts (auto) 6.9 H Absolute Nucleated RBC 0.000 Nucleated RBC % 0.0 Sodium 140 137 Potassium 4.1 4.2 Chloride 100 97 L Carbon Dioxide 30 32 H Anion Gap 10 8 BUN 80 H D 83 H Creatinine 2.36 H 2.30 H Estim Creat Clear Calc Not Reportable Not Reportable Estimated GFR 20 L 20 L Glucose 186 H 182 H POC Capillary Glucose Calcium 9.1 9.0 Total Bilirubin 0.3 AST 23 ALT 15 Alkaline Phosphatase 73 NT-Pro-B Natriuret Pep 376 H Total Protein 6.8 Albumin 3.8 Lipase 26 Urine Color Yellow Urine Appearance Clear Urine pH 5.5 Ur Specific [place] 1.009 Urine Protein Negative Urine Glucose (UA) Negative Urine Ketones Negative Ur Blood (Man) Negative Urine Nitrate Negative Urine Bilirubin Negative Urine Urobilinogen 0.2 Leukocyte Esterase Rfl Negative 11/01/24 11/01/24 11/02/24 17:03 19:54 04:44 WBC 10.7 H RBC 3.33 L Hgb 10.2 L Hct 32.6 L MCV 97.9 MCH 30.6 MCHC 31.3 L RDW 13.8 Plt Count 159 MPV 10.1 Immature Gran % (Auto) 0.7 H Neut % (Auto) 77.2 H Lymph % (Auto) 11.1 L [place] % (Auto) 9.2 H Eos % (Auto) 1.4 Baso % (Auto) 0.4 Lymph # (Auto) 1.18 [place] # (Auto) 1.0 H Eos # (Auto) 0.2 Baso # (Auto) 0.0 Abs Immat Gran (auto) 0.07 H Absolute Neuts (auto) 8.2 H Absolute Nucleated RBC 0.000 Nucleated RBC % 0.0 Sodium 139 Potassium 4.0 Chloride 101 Carbon Dioxide 32 H Anion Gap 6 BUN 70 H D Creatinine 1.83 H Estim Creat Clear Calc 20 Estimated GFR 26 L Glucose 100 POC Capillary Glucose 158 H 254 H Calcium 9.1 Total Bilirubin AST ALT Alkaline Phosphatase NT-Pro-B Natriuret Pep Total Protein Albumin Lipase Urine Color Urine Appearance Urine pH Ur Specific [place] Urine Protein Urine Glucose (UA) Urine Ketones Ur Blood (Man) Urine Nitrate Urine Bilirubin Urine Urobilinogen Leukocyte Esterase Rfl Quality VTE Prophylaxis VTE prophylaxis: mechanical ordered and pharmacologic ordered Hospitalist MIPS Advance Care Plan I have confirmed that the patient's Advanced Care Plan is present, code status is documented, or surrogate decision maker is listed in patient medical record.: Yes Medication Reconciliation I have utilized all available resources to obtain, update and review the patients current medications (includes all prescriptions, OTC, herbals, cannabis, and nutritional supplements).: Yes
[2024-11-02] MEDS: PANTOPRAZOLE 40 MG TABLET PO (08:43)
[2024-11-02] MEDS: DOCUSATE SODIUM 100 MG CAPSULE PO (08:43)
[2024-11-02] MEDS: SACUBITRIL/VALSARTAN 24-26 MG TABLET 1 TAB BY MOUTH ×2 (08:43→20:33)
[2024-11-02] MEDS: METOPROLOL TARTRATE 25 MG TABLET 75 MG PO ×2 (08:43→20:33)
[2024-11-02] MEDS: LACTATED RINGERS 1,000 ML 125 ML IV CONT (08:43)
[2024-11-02] MEDS: FLUTICASONE/SALMETEROL 45-21 MCG INHALER 1 PUFF 2 PUFF INHALATION ×2 (09:09→20:38)
[2024-11-02] MEDS: DOXAZOSIN MESYLATE 4 MG TABLET 8 MG BY MOUTH (12:53)
[2024-11-02] MEDS: ACETAMINOPHEN 500 MG TABLET 1000 MG PO ×2 (12:59→19:35)
--- NOTE | 2024-11-02 14:17 | ECG_ITS ---
Test Date: 2024-11-02 14:55:27 Measurements Intervals Shushan Rate: 72 P: -13 IL: 120 QRS: -17 QRSD: 86 T: 46 QT: 368 QTc: 405 Interpretive Statements SINUS RHYTHM LOW QRS VOLTAGE IN PRECORDIAL LEADS POSSIBLE ANTERIOR MYOCARDIAL INFARCTION AGE INDETERMINATE Electronically Signed On 11-03-2024 08:08:50 CDT by Heber Freeman D.O
[2024-11-02 14:24] LABS: Iron 51 ug/dL (37-170)
[2024-11-02 14:34] LABS: Percent Iron Saturation 18 % (20-50)
[2024-11-02 14:59] LABS: Ferritin 93.20 ng/mL (11.1-264)
[2024-11-02] MEDS: ONDANSETRON HCL ODT 4 MG TABLET PO (15:13)
[2024-11-02] MEDS: METOCLOPRAMIDE HCL INJ 10 MG/2 ML VIAL IV PUSH (17:13)
[2024-11-02] MEDS: SUCRALFATE SUSP 100 MG/ML 10 ML UDC 1000 MG PO ×2 (17:13→20:33)
[2024-11-02] MEDS: SENNOSIDES 8.6 MG TABLET 17.2 MG PO (17:13)
[2024-11-02] MEDS: LACTULOSE 20 GM/30 ML UDC PO (17:13)
[2024-11-02] MEDS: INSULIN ASPART (*BKC) 100 UNITS/ML SUB-Q (17:13)
[2024-11-02] MEDS: INSULIN GLARGINE (*BKC) 100 UNITS/ML 10 UNITS SUB-Q (20:33)
[2024-11-03] VITALS (8 sets, daily range): BP systolic 103–112; BP diastolic 42–56; PULSE 69–75; RESP 18–20; TEMP 36.3–36.9; O2SAT 92–100
[2024-11-03] MEDS: ACETAMINOPHEN 500 MG TABLET 1000 MG PO ×4 (02:02→20:00)
[2024-11-03 05:08] LABS: Hematocrit 32.6 % (37.0-47.0); Hemoglobin 10.2 g/dL (12.0-15.0); Immature Granulocyte Percent A 0.8 % (0-0.5); Lymphocytes Absolute Auto 0.79 K/mm3 (0.9-3.2); Mean Corpuscular HGB Conc 31.3 g/dl (32-36); Mean Corpuscular Hemoglobin 30.7 pg (26-34); Mean Corpuscular Volume 98.2 fl (80-100); Nucleated Red Blood Cells Absolute Auto 0.000 K/mm3 (0.0-0.012); Nucleated Red Blood Cells Perc 0.0 % (0.0-0.2); Platelet Count Result 149 k/mm3 (150-375); Red Blood Count 3.32 M/mm3 (4.2-5.4); White Blood Count 13.0 K/mm3 (4.5-10.0)
[2024-11-03 05:18] LABS: Ammonia < 9 umol/L (9-30)
[2024-11-03] MEDS: SUCRALFATE SUSP 100 MG/ML 10 ML UDC 1000 MG PO ×4 (05:32→20:25)
[2024-11-03 06:10] LABS: Alanine Aminotransferase 13 U/L (6-35); Albumin Level 3.2 g/dL (3.5-5.1); Alkaline Phosphatase 109 U/L (38-126); Anion Gap 7 mmol/L (4-12); Aspartate Amino Transferase 22 U/L (14-36); Bilirubin,Total 0.7 mg/dL (0.2-1.3); Blood Urea Nitrogen 50 mg/dL (7-17); CRP 6.8 mg/dL (<1.0); Calcium 9.2 mg/dL (8.4-10.2); Carbon Dioxide 29 mmol/L (22-30); Chloride 103 mmol/L (98-107); Estimated CRCL calculation 25 ml/min; Estimated Glomerular Filt Rate 35; Glucose 234 mg/dL (65-110); Potassium 4.3 mmol/L (3.4-5.0); Sodium 139 mmol/L (137-145); Total Protein 6.1 g/dL (6.3-8.2)
[2024-11-03] MEDS: FLUTICASONE/SALMETEROL 45-21 MCG INHALER 1 PUFF 2 PUFF INHALATION ×2 (07:47→20:05)
[2024-11-03] MEDS: DOCUSATE SODIUM 100 MG CAPSULE PO (08:37)
[2024-11-03] MEDS: PANTOPRAZOLE 40 MG TABLET PO (08:40)
[2024-11-03] MEDS: SACUBITRIL/VALSARTAN 24-26 MG TABLET 1 TAB BY MOUTH ×2 (08:40→20:25)
[2024-11-03] MEDS: METOPROLOL TARTRATE 25 MG TABLET 75 MG PO ×2 (08:41→20:25)
[2024-11-03] MEDS: METOCLOPRAMIDE HCL INJ 10 MG/2 ML VIAL IV PUSH ×3 (08:42→16:27)
--- NOTE | 2024-11-03 08:48 | P.PNIM_ITS ---
Progress Note: A&P Assessment and Plan (1) Diverticulitis: Code(s): K57.92 - Diverticulitis of intestine, part unspecified, without perforation or abscess without bleeding Status: Acute Assessment and Plan: IVF Levofloxacin/flagyl for 5 days for acute diverticultitis Also had constipation on admission, now resolved ESR/CRP elevated Pain management Bowel protocol (2) Joint pain: Code(s): M25.50 - Pain in unspecified joint Status: Acute Assessment and Plan: Uric acid level elevated to 13.1, phos level 2.9. Pain to left ankle, left hand/wrist and right knee. No recent fall reported. X-rays of ankle left hand and wrist and right knee no acute findings. Orthopedic surgery consulted and not a candidate for a steroid injection --Creatinine clearance 23. --Colchicine 1.2mg x1, repeat dose 0.6mg one hour later if needed. Monitor for diarrhea, nausea with colchicine. Would not repeat dose for 1-2 weeks after that unless ANGELINA resolves. --Not on allopurinol at home, consider starting with PCP after acute flare. --PT/OT --unable to initially currently due to acute pain. Is agreeable to rehab placement and pain resolved (3) ANGELINA (acute kidney injury): Code(s): N17.9 - Acute kidney failure, unspecified Status: Acute Assessment and Plan: Creatinine on admission 2.3, baseline 1, improving to 1.83. 11/01 UA was normal, no evidence of infection Has a complex left renal cyst, about [address] with no change from prior. Has previously been evaluated by Urology IVF 100/hr x1 day. Last echo 10/01/2023 LV function hyperdynamic, 70% with grade 1 diastolic dysfunction Follow BMP Holding diuretics which can trigger gout flares (4) Constipation: Qualifiers: Constipation type: unspecified constipation type Qualified Code(s): K59.00 - Constipation, unspecified Code(s): K59.00 - Constipation, unspecified Status: Acute Assessment and Plan: Severe seen on CT, resolved with lactulose and senna Aggressive bowel protocol --schedule hs senna (5) Diastolic congestive heart failure: Code(s): I50.30 - Unspecified diastolic (congestive) heart failure Status: Acute Assessment and Plan: Currently holding Lasix, zaroxolyn, and spironolactone due to ANGELINA. PCP increased diuretics outpatient due to increased abdominal swelling. and increased shortness of breath. Not currently short of breath Prior TTE with LVEF >70% and grade 1 diastolic dysfunction Blood pressure controlled, 114/41-130/50 (6) Hypertension: Qualifiers: Hypertension type: unspecified Qualified Code(s): I10 - Essential (primary) hypertension Code(s): I10 - Essential (primary) hypertension Status: Chronic Assessment and Plan: Holding hydralazine, restart as able Diuretics on hold (7) Paroxysmal atrial fibrillation: Code(s): I48.0 - Paroxysmal atrial fibrillation Status: Acute Assessment and Plan: Continue Entresto, metoprololEulalio (8) Type 2 diabetes mellitus with hyperglycemia: Code(s): E11.65 - Type 2 diabetes mellitus with hyperglycemia Status: Acute Assessment and Plan: Home meds: Lantus 16 units daily , SSI TID with meals Blood sugars above goal today --Diabetic diet --Accu-Cheks a.c. HS --Continue Lantus 10<15 units daily --Add lispro 4TID with meals & SSI --NS@100/hr x1 liter Time Spent With Patient Time: 62 minutes Subjective Date/time seen: 11/03/24 08:48 Interval history: 4 BM's charted this morning, holding laxatives Creatinine improving WBC improving, continue levaquin and flagyl. Abdominal pain improving. Monitoring for diarrhea Increased pain to wrist, also reporting pain to left ankle and right knee. Consulted ortho, treating with colchicine since uric acid level elevated. Unable to stand and walk due to pain Blood sugars up to 389 at lunch today Review of Systems Review of Systems: 12 systems were reviewed and are negativ e except for as per HPI. Exam Narrative: General: well appearing, appears stated age. HEENT: normocephalic, atraumatic. Mucous membranes moist. EOMI, PERRLA, bilateral sclera anicteric, no conjunctival injection. Neck supple without JVD, lymphadenopathy, or bruit. Respiratory: clear to auscultation bilaterally. No rales/rhonic/wheezes. Cardiovascular: Regular rate and rhythm, normal S1-S2 upon ascultation. No murmurs, rubs, or clicks. PMI is nondisplaced, capillary refill less than 3 second. Abdomen: Soft, round, no pulsatile masses, nondistended and nontender. No rebound, no guarding. No CVA tenderness, no hepatosplenomegaly. Bowel sounds present to all four quadrants. No high pitch or tinkling sounds, resonant to percussion. Extremities: No cyanosis or clubbing. Pulses are palpable 2/2. Left hand and wrist TTP, mild edema and erythema to left wrist. Pain without edema or erythema to left ankle and right knee Neuro: Alert and orientated x 4. PERRLA. Cranial nerves 2-12 intact without focal deficit. Decreased sensation to bilateral feet, which is chronic Skin: Warm, dry, and intact, without rash, erythema, or lesion. Psych: pleasant, cooperative, normal speech, normal affect, no hallucinations, no dysarthia Objective Data Vital Signs Vital Signs: Vital Signs - 24 hr 11/02/24 09:09 11/02/24 09:09 11/02/24 14:00 Temperature 98.3 F Pulse Rate 75 75 75 Respiratory Rate 20 20 18 Blood Pressure 116/44 L Pulse Oximetry 94 95 Oxygen Delivery Room Air 11/02/24 20:33 11/02/24 20:40 11/02/24 20:41 Temperature Pulse Rate 82 71 Respiratory Rate 18 Blood Pressure Pulse Oximetry 91 91 Oxygen Delivery Room Air Room Air 11/02/24 20:42 11/02/24 21:41 11/03/24 06:00 Temperature 98.9 F 97.3 F L Pulse Rate 71 69 70 Respiratory Rate 18 20 20 Blood Pressure 140/96 H 105/50 L Pulse Oximetry 97 92 Oxygen Delivery 11/03/24 08:41 Temperature Pulse Rate 69 Respiratory Rate Blood Pressure Pulse Oximetry Oxygen Delivery Intake/Output Intake/Output: Intake & Output 10/31/24 11/01/24 11/02/24 11/03/24 23:59 23:59 23:59 23:59 Intake Total 1240 1440 200 Output Total 300 1700 415 Balance 708 -094 -783 Meds/Results Medications: Active Medications Generic Name Dose Route Start Last Admin Trade Name Freq PRN Reason Stop Dose Admin Acetaminophen 1,000 mg 11/02/24 12:35 11/03/24 08:38 Acetaminophen 500 Mg Tablet PO 1,000 mg Q6H PRN Administration Mild Pain (1-3) or Fever Al Hydrox/Mg Hydrox/Simethicone 30 ml 11/02/24 15:31 Mag Hydrox/Al Hydrox/Simeth 30 Ml Udc PO Q6H PRN Indigestion Albuterol 2 puff 11/01/24 18:07 Albuterol Sulfate (*Sp) Aerosol 1 Puff INHALATION Q2HRT PRN sob, wheezing Bisacodyl 10 mg 11/01/24 21:49 Bisacodyl 10 Mg Suppository RECTAL QAM PRN Constipation Dextrose 12.5 gm 11/01/24 15:33 Dextrose 50% 25 Gm/50 Ml Syringe IV PUSH PRN PRN Hypoglycemia Protocol Docusate Sodium 100 mg 11/02/24 09:00 11/03/24 08:37 Docusate Sodium 100 Mg Capsule PO 100 mg DAILY ROSEMARIE Administration Doxazosin Mesylate 8 mg 11/02/24 12:00 11/02/24 12:53 Doxazosin Mesylate 4 Mg Tablet BY MOUTH 8 mg DAILY@1200 ROSEMARIE Administration Glucagon 1 mg 11/01/24 15:33 Glucagon For Inj 1 Mg Vial IM PRN PRN Hypoglycemia Protocol Glucose 15 gm 11/01/24 15:33 Glucose Oral Gel 15 Gm Of Glucse In 37.5 Gm Tube PO PRN PRN Hypoglycemia Protocol Heparin Sodium (Porcine) 5,000 units 11/02/24 09:00 11/03/24 08:42 Heparin Sodium 5,000 Units/Ml Vial SUB-Q 5,000 units Q12HR ROSEMARIE Administration Hydralazine HCl 0 mg 11/01/24 21:55 Hydralazine Hcl 25 Mg Tablet BY MOUTH .COMPLEX ROSEMARIE Dextrose 1,000 mls @ 100 mls/hr 11/01/24 15:33 Dextrose 5% 1,000 Ml IVPB PRN PRN Hypoglycemia Protocol Insulin Aspart 2 - 5 units 11/01/24 17:00 11/03/24 08:37 Insulin Aspart (*Bkc) 100 Units/Ml SUB-Q Not Given TIDWM [facility] Protocol Insulin Aspart 1 - 2 units 11/01/24 21:00 11/02/24 20:33 Insulin Aspart (*Bkc) 100 Units/Ml SUB-Q Not Given HS RO[facility]IE Protocol Insulin Glargine 10 units 11/01/24 21:00 11/02/24 20:33 Insulin Glargine (*Bkc) 100 Units/Ml SUB-Q 10 units HS ROSEMARIE Administration Lactulose 20 gm 11/02/24 17:00 11/03/24 08:43 Lactulose 20 Gm/30 Ml Udc PO Not Given TID ROSEMARIE Metoclopramide HCl 10 mg 11/02/24 17:00 11/03/24 08:42 Metoclopramide Hcl Inj 10 Mg/2 Ml Vial IV PUSH 11/04/24 16:59 10 mg TID ROSEMARIE Administration Metoprolol Tartrate 75 mg 11/01/24 21:00 11/03/24 08:41 Metoprolol Tartrate 25 Mg Tablet PO 75 mg Q12HR ROSEMARIE Administration Miscellaneous Information 0 each 11/01/24 00:01 Hydralazine Clarify Dose External Med Record Shows Pt Takes 25mg 1&1/2 Tablets Tid XX 12/01/24 00:00 CLARIFY ROSEMARIE Ondansetron HCl 4 mg 11/02/24 14:17 11/02/24 15:13 Ondansetron Hcl Odt 4 Mg Tablet PO 4 mg Q6H PRN Administration Nausea And Vomiting Pantoprazole Sodium 40 mg 11/02/24 09:00 11/03/24 08:40 Pantoprazole 40 Mg Tablet PO 40 mg QAM ROSEMARIE Administration Sacubitril/Valsartan 1 tab 11/01/24 21:00 11/03/24 08:40 Sacubitril/Valsartan 24-26 Mg Tablet BY MOUTH 1 tab Q12HR ROSEMARIE Administration Fluticasone/Salmeterol 2 puff 11/01/24 20:00 11/03/24 08:34 Fluticasone/Salmeterol 45-21 Mcg Inhaler 1 Puff INHALATION Not Given Q12HRT [facility] Senna 17.2 mg 11/02/24 17:00 11/03/24 08:43 Sennosides 8.6 Mg Tablet PO Not Given BID [facility] Sucralfate 1,000 mg 11/02/24 16:30 11/03/24 05:32 Sucralfate Susp 100 Mg/Ml 10 Ml Udc PO 1,000 mg ACHS ROSEMARIE Administration Radiology Results: ITS Impressions Abdomen/Pelvis CT 11/01/24 12:11 IMPRESSION: 1. Radiographic uncomplicated proximal sigmoid diverticulitis. 2. No significant interval change since 12/23/2023 in a 13.0 cm Bosniak 3 complex cystic left renal lesion. 3. Small portion of the anterior wall of a segment of small bowel projects into the orifice of a small fat-containing umbilical hernia. No bowel obstruction. Chest X-Ray 11/01/24 13:44 IMPRESSION: Moderate cardiomegaly. Bibasilar atelectasis. Mild pulmonary vascular congestion. Hand X-Ray 11/02/24 22:03 IMPRESSION: No acute osseous abnormality left hand. Osteopenia of the bones. Polyarticular osteoarthritic changes Labs Labs: Laboratory Results - last 24 hr 11/02/24 11/02/24 11/02/24 04:44 11:52 16:48 WBC RBC Hgb Hct MCV MCH MCHC RDW Plt Count MPV Immature Gran % (Auto) Neut % (Auto) Lymph % (Auto) [place] % (Auto) Eos % (Auto) Baso % (Auto) Lymph # (Auto) [place] # (Auto) Eos # (Auto) Baso # (Auto) Abs Immat Gran (auto) Absolute Neuts (auto) Absolute Nucleated RBC Nucleated RBC % ESR Sodium Potassium Chloride Carbon Dioxide Anion Gap BUN Creatinine Estim Creat Clear Calc Estimated GFR Glucose POC Capillary Glucose 182 H 225 H Calcium Iron 51 TIBC 276 % Saturation 18 L Ferritin 93.20 Total Bilirubin Direct Bilirubin AST ALT Alkaline Phosphatase Ammonia C-Reactive Protein Total Protein Albumin 11/02/24 11/03/24 11/03/24 19:52 04:59 08:04 WBC 13.0 H RBC 3.32 L Hgb 10.2 L Hct 32.6 L MCV 98.2 MCH 30.7 MCHC 31.3 L RDW 13.7 Plt Count 149 L MPV 9.9 Immature Gran % (Auto) 0.8 H Neut % (Auto) 84.3 H Lymph % (Auto) 6.1 L [place] % (Auto) 8.4 Eos % (Auto) 0.2 Baso % (Auto) 0.2 Lymph # (Auto) 0.79 L [place] # (Auto) 1.1 H Eos # (Auto) 0.0 Baso # (Auto) 0.0 Abs Immat Gran (auto) 0.10 H Absolute Neuts (auto) 10.9 H Absolute Nucleated RBC 0.000 Nucleated RBC % 0.0 ESR 79 H Sodium 139 Potassium 4.3 Chloride 103 Carbon Dioxide 29 Anion Gap 7 BUN 50 H D Creatinine 1.43 H Estim Creat Clear Calc 25 Estimated GFR 35 L Glucose 234 H POC Capillary Glucose 155 H 199 H Calcium 9.2 Iron TIBC % Saturation Ferritin Total Bilirubin 0.7 Direct Bilirubin 0.0 AST 22 ALT 13 Alkaline Phosphatase 109 Ammonia < 9 L C-Reactive Protein 6.8 H Total Protein 6.1 L Albumin 3.2 L Quality VTE Prophylaxis VTE prophylaxis: mechanical ordered and pharmacologic ordered Hospitalist MIPS Advance Care Plan I have confirmed that the patient's Advanced Care Plan is present, code status is documented, or surrogate decision maker is listed in patient medical record.: Yes Medication Reconciliation I have utilized all available resources to obtain, update and review the patients current medications (includes all prescriptions, OTC, herbals, cannabis, and nutritional supplements).: Yes
[2024-11-03] MEDS: ONDANSETRON HCL ODT 4 MG TABLET PO (09:01)
[2024-11-03] MEDS: DOXAZOSIN MESYLATE 4 MG TABLET 8 MG BY MOUTH (11:24)
[2024-11-03] MEDS: INSULIN ASPART (*BKC) 100 UNITS/ML SUB-Q ×3 (13:08→20:40)
[2024-11-03] MEDS: INSULIN GLARGINE (*BKC) 100 UNITS/ML 10 UNITS SUB-Q (20:24)
[2024-11-04] VITALS (10 sets, daily range): BP systolic 101–130; BP diastolic 40–50; PULSE 72–81; RESP 16–20; TEMP 36.3–36.7; O2SAT 92–100
[2024-11-04] MEDS: ACETAMINOPHEN 500 MG TABLET 1000 MG PO ×3 (02:14→20:49)
[2024-11-04 05:29] LABS: Hematocrit 29.9 % (37.0-47.0); Hemoglobin 9.3 g/dL (12.0-15.0); Immature Granulocyte Percent A 1.0 % (0-0.5); Lymphocytes Absolute Auto 1.05 K/mm3 (0.9-3.2); Mean Corpuscular HGB Conc 31.1 g/dl (32-36); Mean Corpuscular Hemoglobin 30.5 pg (26-34); Mean Corpuscular Volume 98.0 fl (80-100); Nucleated Red Blood Cells Absolute Auto 0.000 K/mm3 (0.0-0.012); Nucleated Red Blood Cells Perc 0.0 % (0.0-0.2); Platelet Count Result 133 k/mm3 (150-375); Red Blood Count 3.05 M/mm3 (4.2-5.4); White Blood Count 10.5 K/mm3 (4.5-10.0)
[2024-11-04 05:56] LABS: Anion Gap 7 mmol/L (4-12); Blood Urea Nitrogen 58 mg/dL (7-17); Calcium 8.6 mg/dL (8.4-10.2); Carbon Dioxide 29 mmol/L (22-30); Chloride 101 mmol/L (98-107); Estimated CRCL calculation 23 ml/min; Estimated Glomerular Filt Rate 32; Glucose 251 mg/dL (65-110); Potassium 4.3 mmol/L (3.4-5.0); Sodium 137 mmol/L (137-145)
[2024-11-04] MEDS: SUCRALFATE SUSP 100 MG/ML 10 ML UDC 1000 MG PO ×2 (06:11→11:37)
[2024-11-04] MEDS: FLUTICASONE/SALMETEROL 45-21 MCG INHALER 1 PUFF 2 PUFF INHALATION ×2 (07:31→20:30)
[2024-11-04] MEDS: METOPROLOL TARTRATE 25 MG TABLET 75 MG PO ×2 (08:08→20:45)
[2024-11-04] MEDS: METOCLOPRAMIDE HCL INJ 10 MG/2 ML VIAL IV PUSH ×2 (08:08→12:25)
[2024-11-04] MEDS: PANTOPRAZOLE 40 MG TABLET PO (08:09)
[2024-11-04] MEDS: SACUBITRIL/VALSARTAN 24-26 MG TABLET 1 TAB BY MOUTH ×2 (08:09→20:46)
[2024-11-04] MEDS: INSULIN ASPART (*BKC) 100 UNITS/ML SUB-Q ×4 (08:30→17:22)
[2024-11-04] MEDS: DOXAZOSIN MESYLATE 4 MG TABLET 8 MG BY MOUTH (11:37)
[2024-11-04] MEDS: INSULIN GLARGINE (*BKC) 100 UNITS/ML 15 UNITS SUB-Q (12:24)
[2024-11-04 12:46] LABS: Uric Acid 13.1 mg/dL (2.5-7.5)
--- NOTE | 2024-11-04 15:10 | P.CONOP_ITS ---
Assessment and Plan Assessment and plan (1) Wrist pain, left: Code(s): M25.532 - Pain in left wrist Status: Acute Plan The patient is a 83-year-old female with recent admission for constipation with a history of insulin-dependent diabetes mellitus who presents soon after admission with acute onset left wrist pain and swelling right knee pain and also left ankle pain and swelling. She does have a history of gouty arthritis. Unfortunately she is not a great candidate for intra-articular injection of cortisone into these joints. Her blood glucose with Bovie more likely elevated to greater than 400 with a single injection of cortisone into any of her major joints and even into the wrist joint. I would recommend conservative care which would be icing splinting and possibly medical treatment for gouty arthritis. X- rays were reviewed and they show no evidence of significant pathology that would explain her pain. Upon discharge I would recommend a follow-up with my office in about a week and she can call my office at [phone] for appointment. History of Present Illness HPI Consult date: 11/04/24 Requesting physician: Saritha Foster APRN Chief complaint: Left Wrist Pain, Right Knee Pain, Left Ankle Pain Narrative: The patient is an 83-year-old female who presented to the emergency room with abdominal pain and subsequently with a diagnosis of constipation and diverticulitis and has since had good bowel movements and this apparently has resolved. More recently just around the time of admission on the day after she reported to have some left wrist pain and swelling as well as right knee pain some swelling and also significant left ankle pain. The patient does not have a significant history of these joints being a problem in the past however she does have a history of gout. She also has a history of insulin-dependent diabetes. Today she reports significant pain to the left wrist primarily in the left ankle and some pain into the right knee. She reports no trauma. He lives at home with her 60-year-old son who helps care for her. [facility], [facility] Past Medical History Medical History (Updated 11/04/24 @ 15:21 by Jm Garcia MD) Macular degeneration Chronic anticoagulation C. difficile colitis B12 deficiency Gout Gastroesophageal reflux disease Acute psychosis Asthma Chronic systolic (congestive) heart failure Nonexudative age-related macular degeneration, right eye, intermediate dry stage Hepatic steatosis Aortic atherosclerosis Overactive bladder Acquired hypertriglyceridemia GERD (gastroesophageal reflux disease) Hypertension Surgical History Surgical History History of repair of rotator cuff History of cholecystectomy Family History Family History Father Asthma Cerebrovascular accident Family history of diabetes mellitus in first degree relative Sibling Family history of diabetes mellitus in first degree relative Family history of malignant neoplasm of urinary bladder Mother Family history of heart disease in male family member before age 55 Other Family history of arthritis Hypertension Social History Social History Social History: Surrogate medical decision maker: Julio Ventura, son. Code status: Full code. Smoking packs per day: 1 Smoking cigarettes per day: 20.0 Years smoked: 15 Smoking pack-years: 15.00 Smoking status: Never smoker Second hand tobacco smoke exposure: Yes Alcohol intake: never Substance use: never Substance use type: does not use Do You Feel Safe in your Home?: Yes Lack of Transportation: No Lack of Food: Never True Current Housing: I Have Housing Concerned About Future Housing: No Difficulty Paying Gas/Electric Bills: No Difficulty Paying for Meds: No Currently Unemployed: No Education: High School Diploma/GED Difficulty w/ Childcare or Family Care: No Living arrangements: with family Additional living arrangements comments: Lives in [place]. Son Julio stays with her. 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 09/01/23 11/03/24 Rx (FreeStyle Calixto 3 [place]) ferrous sulfate 142 mg (45 mg 142 mg PO DAILY@0800 #30 tabs 10/06/23 11/01/24 Rx iron) tablet,extended release (Slow Release Iron) folic acid 1 mg tablet 1 mg PO DAILY #30 tabs 12/24/23 11/01/24 Rx metoprolol tartrate 75 mg tablet 75 mg PO BID #180 tabs 01/16/24 11/01/24 Rx hydrocortisone acetate 25 mg 25 mg RECTAL ONCE PRN hemmorhoids 01/18/24 11/01/24 History rectal suppository (Anusol-HC) tolnaftate 1 % topical powder 1 applic topical Q12HR PRN 01/18/24 11/01/24 History irritation blood-glucose sensor (FreeStyle #4 ea 02/10/24 11/03/24 Rx Calixto 3 Sensor device) sucralfate 100 mg/mL oral 1,000 mg (10 mL) PO ACHS PRN GERD 02/23/24 11/01/24 Rx suspension #420 mL albuterol sulfate 90 mcg/actuation 2 puff inhalation Q2H PRN sob, 03/16/24 11/01/24 Rx aerosol inhaler (Ventolin HFA) wheezing #8.5 grams dextromethorphan-guaifenesin 10 10 ml PO Q4-6H PRN Cough 03/18/24 11/01/24 History mg-100 mg/5 mL oral liquid (Safe Tussin DM) insulin glargine 100 unit/mL (3 16 unit subcut DAILY 03/18/24 11/01/24 History mL) subcutaneous pen (Basaglar KwikPen U-100 Insulin) blood-glucose sensor (FreeStyle #6 ea 03/21/24 11/03/24 Rx Calixto 2 Plus Sensor device) hydralazine 25 mg tablet See Rx Instructions .Route .COMPLEX 03/30/24 11/01/24 History ondansetron 4 mg disintegrating See Rx Instructions .Route 05/15/24 11/01/24 Rx tablet .COMPLEX #20 tabs solifenacin 10 mg tablet 10 mg PO DAILY #30 tabs 09/14/24 11/01/24 Rx spironolactone 25 mg tablet See Rx Instructions .Route 09/24/24 11/01/24 Rx .COMPLEX #90 tabs furosemide 40 mg tablet 80 mg (2 x 40 mg) PO DAILY #180 10/03/24 11/01/24 Rx tabs pantoprazole 40 mg tablet,delayed 40 mg PO QAM #90 tabs 10/03/24 11/01/24 Rx release sacubitril 24 mg-valsartan 26 mg See Rx Instructions .Route 10/16/24 11/01/24 Rx tablet (Entresto) .COMPLEX #60 tabs levofloxacin 500 mg tablet 500 mg PO DAILY #7 tabs 10/27/24 11/01/24 Rx budesonide-formoterol HFA 80 See Rx Instructions .Route .COMPLEX 11/01/24 11/01/24 History mcg-4.5 mcg/actuation aerosol inhaler (Breyna) cyanocobalamin (vitamin B-12) 1,000 mcg PO 1200 11/01/24 11/01/24 History 1,000 mcg tablet (Vitamin B-12) doxazosin 8 mg tablet See Rx Instructions .Route .COMPLEX 11/01/24 11/01/24 History insulin aspart U-100 100 unit/mL See Rx Instructions subcut TID 11/01/24 11/01/24 History (3 mL) subcutaneous pen (Novolog FlexPen U-100 Insulin aspart) metolazone 5 mg tablet 10 mg PO 1200 11/01/24 11/01/24 History Allergies Allergy/AdvReac Type Severity Reaction Status Date / Time Penicillins Allergy Severe HIVES Verified 11/01/24 15:51 hydrocodone AdvReac Severe SEVERE GI Verified 11/01/24 15:51 UPSET, N/V nitrofurantoin AdvReac Severe Swelling Verified 11/01/24 15:51 propoxyphene AdvReac Severe GI UPSET Verified 11/01/24 15:51 acetaminophen (From AdvReac Unknown Unknown Verified 11/01/24 15:51 Darvocet-N) adhesive tape AdvReac Unknown Unknown Verified 11/01/24 15:51 amlodipine AdvReac Unknown Unknown Verified 11/01/24 15:51 glimepiride AdvReac Unknown Unknown Verified 11/01/24 15:51 metformin AdvReac Unknown Unknown Verified 11/01/24 15:51 omeprazole (From Prilosec) AdvReac Unknown Unknown Verified 11/01/24 15:51 pioglitazone AdvReac Unknown Unknown Verified 11/01/24 15:51 simvastatin (From Zocor) AdvReac Unknown Unknown Verified 11/01/24 15:51 Vital Signs Vital Signs - 24 hr 11/03/24 20:06 11/03/24 20:08 11/03/24 20:25 Temperature Pulse Rate 70 75 71 Respiratory Rate 20 20 Blood Pressure Pulse Oximetry 94 Oxygen Delivery Oxygen Flow Rate 2 Fraction of Inspired Oxygen 28 11/03/24 20:25 11/03/24 20:31 11/04/24 05:56 Temperature 36.8 C 36.7 C Pulse Rate 71 71 72 Respiratory Rate 18 18 16 Blood Pressure 112/42 L 129/44 L Pulse Oximetry 100 100 93 Oxygen Delivery Room Air Oxygen Flow Rate Fraction of Inspired Oxygen 28 11/04/24 07:30 11/04/24 08:06 11/04/24 08:08 Temperature 36.3 C L Pulse Rate 81 80 Respiratory Rate 16 Blood Pressure 130/50 L Pulse Oximetry 92 95 Oxygen Delivery Room Air Oxygen Flow Rate Fraction of Inspired Oxygen 21 11/04/24 08:09 11/04/24 14:00 Temperature 36.7 C Pulse Rate 80 77 Respiratory Rate 16 18 Blood Pressure 114/41 L Pulse Oximetry 95 96 Oxygen Delivery Room Air Oxygen Flow Rate Fraction of Inspired Oxygen 21 Results Labs 11/04/24 05:11 11/04/24 05:11 Labs: Abnormal lab results 11/03/24 11/03/24 11/04/24 Range/Units 16:56 20:36 05:11 WBC 10.5 H (4.5-10.0) K/mm3 RBC 3.05 L (4.2-5.4) M/mm3 Hgb 9.3 L (12.0-15.0) g/dL Hct 29.9 L (37.0-47.0) % MCHC 31.1 L (32-36) g/dl Plt Count 133 L (150-375) k/mm3 Immature Gran % (Auto) 1.0 H (0-0.5) % Neut % (Auto) 79.5 H (45.5-73.1) % Lymph % (Auto) 10.0 L (18.3-44.2) % [place] # (Auto) 0.9 H (0.1-0.6) K/mm3 Abs Immat Gran (auto) 0.10 H (0.00-0.031) K/mm3 Absolute Neuts (auto) 8.4 H (1.3-6.7) K/mm3 BUN 58 H (7-17) mg/dL Creatinine 1.55 H (0.7-1.0) mg/dL Estimated GFR 32 L (59 - ) Glucose 251 H (65-110) mg/dL POC Capillary Glucose 251 H 262 H (65-105) mg/dl Uric Acid 13.1 H (2.5-7.5) mg/dL 11/04/24 11/04/24 Range/Units 08:19 11:58 WBC (4.5-10.0) K/mm3 RBC (4.2-5.4) M/mm3 Hgb (12.0-15.0) g/dL Hct (37.0-47.0) % MCHC (32-36) g/dl Plt Count (150-375) k/mm3 Immature Gran % (Auto) (0-0.5) % Neut % (Auto) (45.5-73.1) % Lymph % (Auto) (18.3-44.2) % [place] # (Auto) (0.1-0.6) K/mm3 Abs Immat Gran (auto) (0.00-0.031) K/mm3 Absolute Neuts (auto) (1.3-6.7) K/mm3 BUN (7-17) mg/dL Creatinine (0.7-1.0) mg/dL Estimated GFR (59 - ) Glucose (65-110) mg/dL POC Capillary Glucose 219 H 389 H (65-105) mg/dl Uric Acid (2.5-7.5) mg/dL H & H 11/01/24 11/02/24 11/03/24 Range/Units 10:32 04:44 04:59 Hgb 10.4 L 10.2 L 10.2 L (12.0-15.0) g/dL Hct 33.4 L 32.6 L 32.6 L (37.0-47.0) % 11/04/24 Range/Units 05:11 Hgb 9.3 L (12.0-15.0) g/dL Hct 29.9 L (37.0-47.0) % All other labs normal.
[2024-11-04] MEDS: COLCHICINE 0.6 MG TABLET 1.2 MG PO (17:30)
[2024-11-04] MEDS: SODIUM CHLORIDE 0.9% IV 1,000 ML 100 ML IV CONT (17:31)
[2024-11-04] MEDS: COLCHICINE 0.6 MG TABLET PO (18:12)
[2024-11-04] MEDS: SENNOSIDES 8.6 MG TABLET 17.2 MG PO (20:46)
[2024-11-05] VITALS (8 sets, daily range): BP systolic 126–142; BP diastolic 43–55; PULSE 72–88; RESP 12–18; TEMP 36.2–36.8; O2SAT 94–97
[2024-11-05] MEDS: SODIUM CHLORIDE 0.9% IV 1,000 ML 100 ML IV CONT (03:32)
[2024-11-05 06:37] LABS: Hematocrit 29.7 % (37.0-47.0); Hemoglobin 9.2 g/dL (12.0-15.0); Immature Granulocyte Percent A 1.0 % (0-0.5); Lymphocytes Absolute Auto 1.09 K/mm3 (0.9-3.2); Mean Corpuscular HGB Conc 31.0 g/dl (32-36); Mean Corpuscular Hemoglobin 30.6 pg (26-34); Mean Corpuscular Volume 98.7 fl (80-100); Nucleated Red Blood Cells Absolute Auto 0.000 K/mm3 (0.0-0.012); Nucleated Red Blood Cells Perc 0.0 % (0.0-0.2); Platelet Count Result 142 k/mm3 (150-375); Red Blood Count 3.01 M/mm3 (4.2-5.4); White Blood Count 7.9 K/mm3 (4.5-10.0)
[2024-11-05 06:54] LABS: Anion Gap 6 mmol/L (4-12); Blood Urea Nitrogen 48 mg/dL (7-17); Calcium 8.2 mg/dL (8.4-10.2); Carbon Dioxide 27 mmol/L (22-30); Chloride 107 mmol/L (98-107); Estimated CRCL calculation 32 ml/min; Estimated Glomerular Filt Rate 47; Glucose 174 mg/dL (65-110); Potassium 3.8 mmol/L (3.4-5.0); Sodium 140 mmol/L (137-145)
[2024-11-05 07:16] LABS: CRP 12.1 mg/dL (<1.0)
[2024-11-05] MEDS: METOPROLOL TARTRATE 25 MG TABLET 75 MG PO ×2 (08:29→21:39)
[2024-11-05] MEDS: PANTOPRAZOLE 40 MG TABLET PO (08:29)
[2024-11-05] MEDS: SACUBITRIL/VALSARTAN 24-26 MG TABLET 1 TAB BY MOUTH ×2 (08:30→21:36)
[2024-11-05] MEDS: INSULIN GLARGINE (*BKC) 100 UNITS/ML 15 UNITS SUB-Q (08:32)
[2024-11-05] MEDS: INSULIN ASPART (*BKC) 100 UNITS/ML SUB-Q ×3 (08:33→17:07)
[2024-11-05] MEDS: ACETAMINOPHEN 500 MG TABLET 1000 MG PO ×2 (08:40→21:36)
[2024-11-05] MEDS: DOXAZOSIN MESYLATE 4 MG TABLET 8 MG BY MOUTH (11:52)
--- NOTE | 2024-11-05 13:07 | P.PNIM_ITS ---
Progress Note: A&P Assessment and Plan (1) Diverticulitis: Code(s): K57.92 - Diverticulitis of intestine, part unspecified, without perforation or abscess without bleeding Status: Acute Assessment and Plan: CT abdomen and pelvis showed sigmoid diverticulitis and constipation (no obstruction). -IVF discontinued 11/05; pt eating and drinking appropriately. -Levofloxacin/flagyl for 5 days (total) for acute diverticulitis; on day 25; discontinue antibiotics on 11/08/24 -Also had constipation on admission, now resolved -ESR/CRP elevated -Pain management (2) Joint pain: Code(s): M25.50 - Pain in unspecified joint Status: Acute Assessment and Plan: Uric acid level elevated to 13.1, phos level 2.9. Pain to left ankle, left hand/wrist and right knee. No recent fall reported. X-rays of ankle left hand and wrist and right knee no acute findings. Patient's son is ademant that she does not have gout and has never had gout even though they have been told in the past that this is a possibility. -Orthopedic surgery consulted and not a candidate for a steroid injection -Creatinine clearance 23. -Colchicine 1.2mg x1, repeat dose 0.6mg one hour later if needed. Monitor for diarrhea, nausea with colchicine. Would not repeat dose for 1-2 weeks after that unless ANGELINA resolves. -Not on allopurinol at home, consider starting with PCP after acute flare. -PT/OT evaluation pending (3) ANGELINA (acute kidney injury): Code(s): N17.9 - Acute kidney failure, unspecified Status: Acute Assessment and Plan: -Creatinine on admission 2.3 -> 1.8 -> 1.43 -> 1.1, baseline 1. -11/01 UA was normal, no evidence of infection. -Has a complex left renal cyst, about [address] with no change from prior. Lubin s previously been evaluated by Urology -Last echo 10/01/2023 LV function hyperdynamic, 70% with grade 1 diastolic dysfunction -Holding diuretics which can trigger gout flares -RESOLVED (4) Constipation: Qualifiers: Constipation type: unspecified constipation type Qualified Code(s): K59.00 - Constipation, unspecified Code(s): K59.00 - Constipation, unspecified Status: Acute Assessment and Plan: Severe seen on CT, resolved with lactulose and senna Aggressive bowel protocol -schedule hs senna -RESOLVED. (5) Diastolic congestive heart failure: Code(s): I50.30 - Unspecified diastolic (congestive) heart failure Status: Acute Assessment and Plan: -Currently holding Lasix, zaroxolyn, and spironolactone due to ANGELINA. PCP increased diuretics outpatient due to increased abdominal swelling. and increased shortness of breath. Not currently short of breath. -Prior TTE with LVEF >70% and grade 1 diastolic dysfunction -Blood pressure controlled, 114/41-130/50 (6) Hypertension: Qualifiers: Hypertension type: unspecified Qualified Code(s): I10 - Essential (primary) hypertension Code(s): I10 - Essential (primary) hypertension Status: Chronic Assessment and Plan: -Holding hydralazine, restart as able -Diuretics on hold (7) Paroxysmal atrial fibrillation: Code(s): I48.0 - Paroxysmal atrial fibrillation Status: Acute Assessment and Plan: Continue Entresto, metoprolol, Cardura (8) Type 2 diabetes mellitus with hyperglycemia: Code(s): E11.65 - Type 2 diabetes mellitus with hyperglycemia Status: Acute Assessment and Plan: Home meds: Lantus 16 units daily , SSI TID with meals Blood sugars above goal today --Diabetic diet --Accu-Cheks a.c. HS --Continue Lantus 10<15 units daily --Add lispro 4TID with meals & SSI --Discontinue fluids. Subjective Date/time seen: 11/05/24 13:07 Interval history: Patient was in the room with son at bedside. Both patient this under very adamant that they do not want to be discharged to SNF, acute rehab or home health. She has not had a PT or OT evaluation yet during her stay. She has been hospitalized multiple times here at [place] and PT OT have always recommended SNF. Patient's son is adamant that she not go to therapy or home health. He states in the past he has had disagreements with multiple nursing homes around the area. He states that he gets into arguments with everyone who has come into their home for home health. He is very frustrated that every time his mom takes diuretics that she becomes constipated and if she does not take the diuretics then she becomes fluid overloaded. He is questioning why she is having all of the problems that she is having and states that they are considering getting a new doctor. Discussed this with care coordination who is very aware of this family dynamic. Patient ready for discharge as soon as discharge plan is in place (family cannot make decision on plan due to not wanting therapy but unable to care for patient at home). Care coordination working on the case. Exam Narrative: GENERAL: Comfortable, no acute distress HENMT: moist mucous membranes EYES: EOM intact b/l RESPIRATORY: clear to auscultation, no increased respiratory effort CARDIO: Regular rate and rhythm GI: soft, nontender, bowel sounds present SKIN/EXTREMITIES: Tenderness over left wrist. Left wrist is swollen and pink in color. painful to touch and limited ROM. NEURO: PROM intact, answers questions appropriately, A&O x4 Objective Data Vital Signs Vital Signs: Vital Signs - 24 hr 11/04/24 14:00 11/04/24 20:30 11/04/24 20:40 Temperature 98.1 F Pulse Rate 77 73 Respiratory Rate 18 20 Blood Pressure 114/41 L Pulse Oximetry 96 93 100 Oxygen Delivery Room Air Room Air Fraction of Inspired Oxygen 21 21 11/04/24 20:45 11/04/24 21:49 11/05/24 05:04 Temperature 98.1 F 98.1 F Pulse Rate 76 73 88 Respiratory Rate 20 18 Blood Pressure 101/40 L 134/47 L Pulse Oximetry 100 94 Oxygen Delivery Fraction of Inspired Oxygen 11/05/24 08:26 11/05/24 08:29 11/05/24 08:40 Temperature 97.2 F L Pulse Rate 76 76 76 Respiratory Rate 16 16 Blood Pressure 141/55 H Pulse Oximetry 95 95 Oxygen Delivery Room Air Fraction of Inspired Oxygen 21 Intake/Output Intake/Output: Intake & Output 11/02/24 11/03/24 11/04/24 11/05/24 23:59 23:59 23:59 23:59 Intake Total 1440 561 268 1190 Output Total 8365 145 6056 200 Balance -260 90 -765 970 Meds/Results Medications: Active Medications Generic Name Dose Route Start Last Admin Trade Name Freq PRN Reason Stop Dose Admin Acetaminophen 1,000 mg 11/02/24 12:35 11/05/24 08:40 Acetaminophen 500 Mg Tablet PO 1,000 mg Q6H PRN Administration Mild Pain (1-3) or Fever Al Hydrox/Mg Hydrox/Simethicone 30 ml 11/02/24 15:31 Mag Hydrox/Al Hydrox/Simeth 30 Ml Udc PO Q6H PRN Indigestion Albuterol 2 puff 11/01/24 18:07 Albuterol Sulfate (*Sp) Aerosol 1 Puff INHALATION Q2HRT PRN sob, wheezing Bisacodyl 10 mg 11/01/24 21:49 Bisacodyl 10 Mg Suppository RECTAL QAM PRN Constipation Dextrose 12.5 gm 11/01/24 15:33 Dextrose 50% 25 Gm/50 Ml Syringe IV PUSH PRN PRN Hypoglycemia Protocol Docusate Sodium 100 mg 11/02/24 09:00 11/03/24 08:37 Docusate Sodium 100 Mg Capsule PO 100 mg DAILY ROSEMARIE Administration Doxazosin Mesylate 8 mg 11/02/24 12:00 11/05/24 11:52 Doxazosin Mesylate 4 Mg Tablet BY MOUTH 8 mg DAILY@1200 ROSEMARIE Administration Glucagon 1 mg 11/01/24 15:33 Glucagon For Inj 1 Mg Vial IM PRN PRN Hypoglycemia Protocol Glucose 15 gm 11/01/24 15:33 Glucose Oral Gel 15 Gm Of Glucse In 37.5 Gm Tube PO PRN PRN Hypoglycemia Protocol Heparin Sodium (Porcine) 5,000 units 11/02/24 09:00 11/05/24 08:29 Heparin Sodium 5,000 Units/Ml Vial SUB-Q 5,000 units Q12HR ROSEMARIE Administration Dextrose 1,000 mls @ 100 mls/hr 11/01/24 15:33 Dextrose 5% 1,000 Ml IVPB PRN PRN Hypoglycemia Protocol Insulin Aspart 2 - 5 units 11/01/24 17:00 11/05/24 12:00 Insulin Aspart (*Bkc) 100 Units/Ml SUB-Q Not Given TIDWM [facility] Protocol Insulin Aspart 1 - 2 units 11/01/24 21:00 11/04/24 21:54 Insulin Aspart (*Bkc) 100 Units/Ml SUB-Q Not Given HS [facility] Protocol Insulin Aspart 4 units 11/04/24 12:10 11/05/24 11:59 Insulin Aspart (*Bkc) 100 Units/Ml 0.05 units/kg (4 units) 4 units SUB-Q Administration TIDWM [facility] Insulin Glargine 15 units 11/04/24 12:10 11/05/24 08:32 Insulin Glargine (*Bkc) 100 Units/Ml SUB-Q 15 units DAILY ROSEMARIE Administration Lactulose 20 gm 11/02/24 17:00 11/03/24 08:43 Lactulose 20 Gm/30 Ml Udc PO Not Given TID ROSEMARIE Levofloxacin 250 mg 11/04/24 09:00 11/05/24 08:29 Levofloxacin 250 Mg Tablet PO 250 mg QAM ROSEMARIE Administration Metoprolol Tartrate 75 mg 11/01/24 21:00 11/05/24 08:29 Metoprolol Tartrate 25 Mg Tablet PO 75 mg Q12HR ROSEMARIE Administration Metronidazole 500 mg 11/03/24 14:00 11/05/24 06:05 Metronidazole 500 Mg Tablet PO 500 mg Q8HR ROSEMARIE Administration Ondansetron HCl 4 mg 11/02/24 14:17 11/03/24 09:01 Ondansetron Hcl Odt 4 Mg Tablet PO 4 mg Q6H PRN Administration Nausea And Vomiting Pantoprazole Sodium 40 mg 11/02/24 09:00 11/05/24 08:29 Pantoprazole 40 Mg Tablet PO 40 mg QAM [facility] Administration Sacubitril/Valsartan 1 tab 11/01/24 21:00 11/05/24 08:30 Sacubitril/Valsartan 24-26 Mg Tablet BY MOUTH 1 tab Q12HR ROSEMARIE Administration Fluticasone/Salmeterol 2 puff 11/01/24 20:00 11/04/24 20:30 Fluticasone/Salmeterol 45-21 Mcg Inhaler 1 Puff INHALATION 2 puff Q12HRT ROSEMARIE Administration Senna 17.2 mg 11/04/24 21:00 11/04/24 20:46 Sennosides 8.6 Mg Tablet PO 17.2 mg HS ROSEMARIE Administration Radiology Results: ITS Impressions Abdomen/Pelvis CT 11/01/24 12:11 IMPRESSION: 1. Radiographic uncomplicated proximal sigmoid diverticulitis. 2. No significant interval change since 12/23/2023 in a 13.0 cm Bosniak 3 complex cystic left renal lesion. 3. Small portion of the anterior wall of a segment of small bowel projects into the orifice of a small fat-containing umbilical hernia. No bowel obstruction. Chest X-Ray 11/01/24 13:44 IMPRESSION: Moderate cardiomegaly. Bibasilar atelectasis. Mild pulmonary vascular congestion. Hand X-Ray 11/02/24 22:03 IMPRESSION: No acute osseous abnormality left hand. Osteopenia of the bones. Polyarticular osteoarthritic changes Wrist X-Ray 11/04/24 12:41 Impression: Stable degenerative changes at the radial aspect of the wrist, as detailed above. Possible fusion of the trapezium and trapezoid. Ankle X-Ray 11/04/24 12:42 Impression: Unremarkable left ankle. Knee X-Ray 11/04/24 12:42 Impression: Unremarkable right knee radiographs. Labs Labs: Laboratory Results - last 24 hr 11/04/24 11/04/24 11/05/24 16:44 21:49 06:07 WBC 7.9 RBC 3.01 L Hgb 9.2 L Hct 29.7 L MCV 98.7 MCH 30.6 MCHC 31.0 L RDW 13.9 Plt Count 142 L MPV 10.0 Immature Gran % (Auto) 1.0 H Neut % (Auto) 73.7 H Lymph % (Auto) 13.9 L [place] % (Auto) 9.0 H Eos % (Auto) 1.9 Baso % (Auto) 0.5 Lymph # (Auto) 1.09 [place] # (Auto) 0.7 H Eos # (Auto) 0.2 Baso # (Auto) 0.0 Abs Immat Gran (auto) 0.08 H Absolute Neuts (auto) 5.8 Absolute Nucleated RBC 0.000 Nucleated RBC % 0.0 ESR > 140 H Sodium 140 Potassium 3.8 Chloride 107 Carbon Dioxide 27 Anion Gap 6 BUN 48 H D Creatinine 1.10 H Estim Creat Clear Calc 32 Estimated GFR 47 L Glucose 174 H POC Capillary Glucose 251 H 192 H Calcium 8.2 L C-Reactive Protein 12.1 H 11/05/24 11/05/24 07:51 11:50 WBC RBC Hgb Hct MCV MCH MCHC RDW Plt Count MPV Immature Gran % (Auto) Neut % (Auto) Lymph % (Auto) [place] % (Auto) Eos % (Auto) Baso % (Auto) Lymph # (Auto) [place] # (Auto) Eos # (Auto) Baso # (Auto) Abs Immat Gran (auto) Absolute Neuts (auto) Absolute Nucleated RBC Nucleated RBC % ESR Sodium Potassium Chloride Carbon Dioxide Anion Gap BUN Creatinine Estim Creat Clear Calc Estimated GFR Glucose POC Capillary Glucose 181 H 186 H Calcium C-Reactive Protein
[2024-11-05] MEDS: FLUTICASONE/SALMETEROL 45-21 MCG INHALER 1 PUFF 2 PUFF INHALATION (20:41)
[2024-11-05] MEDS: SENNOSIDES 8.6 MG TABLET 17.2 MG PO (21:36)
[2024-11-06] VITALS (9 sets, daily range): BP systolic 103–140; BP diastolic 46–63; PULSE 61–80; RESP 12–18; TEMP 36.1–36.7; O2SAT 94–100
[2024-11-06] MEDS: ACETAMINOPHEN 500 MG TABLET 1000 MG PO ×2 (05:28→14:04)
[2024-11-06 05:30] LABS: Hematocrit 29.7 % (37.0-47.0); Hemoglobin 9.1 g/dL (12.0-15.0); Immature Granulocyte Percent A 1.2 % (0-0.5); Lymphocytes Absolute Auto 1.30 K/mm3 (0.9-3.2); Mean Corpuscular HGB Conc 30.6 g/dl (32-36); Mean Corpuscular Hemoglobin 30.5 pg (26-34); Mean Corpuscular Volume 99.7 fl (80-100); Nucleated Red Blood Cells Absolute Auto 0.000 K/mm3 (0.0-0.012); Nucleated Red Blood Cells Perc 0.0 % (0.0-0.2); Platelet Count Result 150 k/mm3 (150-375); Red Blood Count 2.98 M/mm3 (4.2-5.4); White Blood Count 6.7 K/mm3 (4.5-10.0)
[2024-11-06 05:45] LABS: Anion Gap 6 mmol/L (4-12); Blood Urea Nitrogen 44 mg/dL (7-17); Calcium 8.3 mg/dL (8.4-10.2); Carbon Dioxide 25 mmol/L (22-30); Chloride 109 mmol/L (98-107); Estimated CRCL calculation 33 ml/min; Estimated Glomerular Filt Rate 49; Glucose 153 mg/dL (65-110); Potassium 3.8 mmol/L (3.4-5.0); Sodium 140 mmol/L (137-145)
[2024-11-06] MEDS: FLUTICASONE/SALMETEROL 45-21 MCG INHALER 1 PUFF 2 PUFF INHALATION ×2 (07:56→20:46)
[2024-11-06] MEDS: PANTOPRAZOLE 40 MG TABLET PO (08:58)
[2024-11-06] MEDS: SACUBITRIL/VALSARTAN 24-26 MG TABLET 1 TAB BY MOUTH ×2 (08:58→21:24)
[2024-11-06] MEDS: METOPROLOL TARTRATE 25 MG TABLET 75 MG PO ×2 (08:58→21:24)
[2024-11-06] MEDS: INSULIN ASPART (*BKC) 100 UNITS/ML SUB-Q ×5 (08:59→21:31)
[2024-11-06] MEDS: INSULIN GLARGINE (*BKC) 100 UNITS/ML 15 UNITS SUB-Q (09:00)
[2024-11-06] MEDS: DOXAZOSIN MESYLATE 4 MG TABLET 8 MG BY MOUTH (12:18)
--- NOTE | 2024-11-06 13:31 | P.PNIM_ITS ---
Progress Note: A&P Assessment and Plan (1) Diverticulitis: Code(s): K57.92 - Diverticulitis of intestine, part unspecified, without perforation or abscess without bleeding Status: Acute Assessment and Plan: CT abdomen and pelvis showed sigmoid diverticulitis and constipation (no obstruction). -IVF discontinued 11/05; pt eating and drinking appropriately. -Levofloxacin/flagyl for 5 days (total) for acute diverticulitis; on day 25; discontinue antibiotics on 11/08/24 -Also had constipation on admission, now resolved -ESR/CRP elevated -Pain management (2) Joint pain: Code(s): M25.50 - Pain in unspecified joint Status: Acute Assessment and Plan: Uric acid level elevated to 13.1, phos level 2.9. Pain to left ankle, left hand/wrist and right knee. No recent fall reported. X-rays of ankle left hand and wrist and right knee no acute findings. . -Orthopedic surgery consulted and not a candidate for a steroid injection -Creatinine clearance 23. -Colchicine 1.2mg x1, repeat dose 0.6mg one hour later if needed. Monitor for diarrhea, nausea with colchicine. Would not repeat dose for 1-2 weeks after that unless ANGELINA resolves. -Not on allopurinol at home, consider starting with PCP after acute flare. -PT/OT evaluation pending (3) ANGELINA (acute kidney injury): Code(s): N17.9 - Acute kidney failure, unspecified Status: Acute Assessment and Plan: -Creatinine on admission 2.3 -> 1.8 -> 1.43 -> 1.1, baseline 1. -11/01 UA was normal, no evidence of infection. -Has a complex left renal cyst, about [address] with no change from prior. Has previously been evaluated by Urology -Last echo 10/01/2023 LV function hyperdynamic, 70% with grade 1 diastolic dysfunction -Holding diuretics which can trigger gout flares -RESOLVED (4) Constipation: Qualifiers: Constipation type: unspecified constipation type Qualified Code(s): K59.00 - Constipation, unspecified Code(s): K59.00 - Constipation, unspecified Status: Acute Assessment and Plan: Severe seen on CT, resolved with lactulose and senna Aggressive bowel protocol -schedule hs senna -RESOLVED. (5) Diastolic congestive heart failure: Code(s): I50.30 - Unspecified diastolic (congestive) heart failure Status: Acute Assessment and Plan: -Currently holding Lasix, zaroxolyn, and spironolactone due to ANGELINA. PCP increased diuretics outpatient due to increased abdominal swelling. and increased shortness of breath. Not currently short of breath. -Prior TTE with LVEF >70% and grade 1 diastolic dysfunction -Blood pressure controlled, 114/41-130/50 (6) Hypertension: Qualifiers: Hypertension type: unspecified Qualified Code(s): I10 - Essential (primary) hypertension Code(s): I10 - Essential (primary) hypertension Status: Chronic Assessment and Plan: -Holding hydralazine, restart as able -Diuretics on hold (7) Paroxysmal atrial fibrillation: Code(s): I48.0 - Paroxysmal atrial fibrillation Status: Acute Assessment and Plan: Continue Entresto, metoprolol, Cardura (8) Type 2 diabetes mellitus with hyperglycemia: Code(s): E11.65 - Type 2 diabetes mellitus with hyperglycemia Status: Acute Assessment and Plan: Home meds: Lantus 16 units daily , SSI TID with meals Blood sugars above goal today --Diabetic diet --Accu-Cheks a.c. HS --Continue Lantus 5 units daily --lispro 4TID with meals & SSI --Discontinue fluids. Subjective Date/time seen: 11/06/24 13:31 Interval history: per HPI: 83-year-old past medical history of CHF, asthma, gout, history of C diff and hepatic steatosis with multiple complaints including abdominal pain and constipation. Patient states that she has not had bowel movement in about 7 days. She tried a suppository with no luck. Due to severe cramping and abdominal pain she came to the hospital. Patient denies nausea vomiting fever chills. Work in the ED shows anemia at 10.4, BUN of 80, creatinine of 2.36, GFR 20, glucose of 186, BNP of 376, UA negative for infection. Chest x-ray shows moderate cardiomegaly, bibasilar atelectasis, and mild pulmonary vascular congestion. CT abdomen pelvis show sigmoid diverticulitis, unchanged renal cysts, umbilical hernia containing fat. 11/06/24 Patient was seen and examined at bedside. she is feeing better. has been treated for diverticulitis with Flagyl and levaquin. also has R knee and L wrist pain and L ankle pain which are improving. she has been treated for possible gout. orthopedic team onboard recommended coservative management. Review of Systems Review of Systems: 12 systems were reviewed and are negativ e except for as per HPI. Exam Narrative: GENERAL: Comfortable, no acute distress HENMT: moist mucous membranes EYES: EOM intact b/l RESPIRATORY: clear to auscultation, no increased respiratory effort CARDIO: Regular rate and rhythm GI: soft, nontender, bowel sounds present SKIN/EXTREMITIES: Tenderness over left wrist. Left wrist is swollen and normalin color. painful to touch and limited ROM. R nee decrease ROM NEURO: PROM intact, answers questions appropriately, A&O x4 Objective Data Vital Signs Vital Signs: Vital Signs - 24 hr 11/05/24 14:00 11/05/24 20:00 11/05/24 20:25 Temperature 98.2 F 97.7 F Pulse Rate 75 75 Respiratory Rate 18 12 Blood Pressure 126/53 L 142/43 H Pulse Oximetry 95 97 Oxygen Delivery Room Air Oxygen Flow Rate Fraction of Inspired Oxygen 11/05/24 20:44 11/05/24 21:39 11/06/24 04:28 Temperature 97.4 F L Pulse Rate 72 72 65 Respiratory Rate 18 12 Blood Pressure 138/51 L Pulse Oximetry 99 Oxygen Delivery Oxygen Flow Rate Fraction of Inspired Oxygen 11/06/24 07:56 11/06/24 08:00 11/06/24 08:53 Temperature 98.1 F Pulse Rate 72 70 Respiratory Rate 18 14 Blood Pressure 140/63 Pulse Oximetry 94 98 Oxygen Delivery Room Air Oxygen Flow Rate Fraction of Inspired Oxygen 21 11/06/24 08:58 07/15/25 08:59 11/06/24 09:29 Temperature Pulse Rate 70 Respiratory Rate Blood Pressure Pulse Oximetry 98 Oxygen Delivery Room Air Nasal Cannula Oxygen Flow Rate 3 Fraction of Inspired Oxygen 11/06/24 10:57 Temperature Pulse Rate Respiratory Rate Blood Pressure Pulse Oximetry Oxygen Delivery Nasal Cannula Oxygen Flow Rate 3 Fraction of Inspired Oxygen Intake/Output Intake/Output: Intake & Output 11/03/24 11/04/24 11/05/24 11/06/24 23:59 23:59 23:59 23:59 Intake Total 136 385 2019 440 Output Total 830 1515 400 300 Balance 90 -765 1250 140 Meds/Results Medications: Active Medications Generic Name Dose Route Start Last Admin Trade Name Freq PRN Reason Stop Dose Admin Acetaminophen 1,000 mg 11/02/24 12:35 11/06/24 05:28 Acetaminophen 500 Mg Tablet PO 1,000 mg Q6H PRN Administration Mild Pain (1-3) or Fever Al Hydrox/Mg Hydrox/Simethicone 30 ml 11/02/24 15:31 Mag Hydrox/Al Hydrox/Simeth 30 Ml Udc PO Q6H PRN Indigestion Albuterol 2 puff 11/01/24 18:07 Albuterol Sulfate (*Sp) Aerosol 1 Puff INHALATION Q2HRT PRN sob, wheezing Bisacodyl 10 mg 11/01/24 21:49 Bisacodyl 10 Mg Suppository RECTAL QAM PRN Constipation Dextrose 12.5 gm 11/01/24 15:33 Dextrose 50% 25 Gm/50 Ml Syringe IV PUSH PRN PRN Hypoglycemia Protocol Docusate Sodium 100 mg 11/02/24 09:00 11/03/24 08:37 Docusate Sodium 100 Mg Capsule PO 100 mg DAILY ROSEMARIE Administration Doxazosin Mesylate 8 mg 11/02/24 12:00 11/06/24 12:18 Doxazosin Mesylate 4 Mg Tablet BY MOUTH 8 mg DAILY@1200 ROSEMARIE Administration Glucagon 1 mg 11/01/24 15:33 Glucagon For Inj 1 Mg Vial IM PRN PRN Hypoglycemia Protocol Glucose 15 gm 11/01/24 15:33 Glucose Oral Gel 15 Gm Of Glucse In 37.5 Gm Tube PO PRN PRN Hypoglycemia Protocol Heparin Sodium (Porcine) 5,000 units 11/02/24 09:00 11/06/24 08:58 Heparin Sodium 5,000 Units/Ml Vial SUB-Q 5,000 units Q12HR ROSEMARIE Administration Dextrose 1,000 mls @ 100 mls/hr 11/01/24 15:33 Dextrose 5% 1,000 Ml IVPB PRN PRN Hypoglycemia Protocol Insulin Aspart 2 - 5 units 11/01/24 17:00 11/06/24 12:21 Insulin Aspart (*Bkc) 100 Units/Ml SUB-Q Not Given TIDWM [facility] Protocol Insulin Aspart 1 - 2 units 11/01/24 21:00 11/05/24 21:30 Insulin Aspart (*Bkc) 100 Units/Ml SUB-Q Not Given HS [facility] Protocol Insulin Aspart 4 units 11/04/24 12:10 11/06/24 12:19 Insulin Aspart (*Bkc) 100 Units/Ml 0.05 units/kg (4 units) 4 units SUB-Q Administration TIDWM [facility] Insulin Glargine 15 units 11/04/24 12:10 11/06/24 09:00 Insulin Glargine (*Bkc) 100 Units/Ml SUB-Q 15 units DAILY ROSEMARIE Administration Lactulose 20 gm 11/02/24 17:00 11/03/24 08:43 Lactulose 20 Gm/30 Ml Udc PO Not Given TID ROSEMARIE Levofloxacin 250 mg 11/04/24 09:00 11/06/24 08:58 Levofloxacin 250 Mg Tablet PO 250 mg QAM ROSEMARIE Administration Metoprolol Tartrate 75 mg 11/01/24 21:00 11/06/24 08:58 Metoprolol Tartrate 25 Mg Tablet PO 75 mg Q12HR ROSEMARIE Administration Metronidazole 500 mg 11/03/24 14:00 11/06/24 05:29 Metronidazole 500 Mg Tablet PO 500 mg Q8HR ROSEMARIE Administration Ondansetron HCl 4 mg 11/02/24 14:17 11/03/24 09:01 Ondansetron Hcl Odt 4 Mg Tablet PO 4 mg Q6H PRN Administration Nausea And Vomiting Pantoprazole Sodium 40 mg 11/02/24 09:00 11/06/24 08:58 Pantoprazole 40 Mg Tablet PO 40 mg QAM ROSEMARIE Administration Sacubitril/Valsartan 1 tab 11/01/24 21:00 11/06/24 08:58 Sacubitril/Valsartan 24-26 Mg Tablet BY MOUTH 1 tab Q12HR ROSEMARIE Administration Fluticasone/Salmeterol 2 puff 11/01/24 20:00 11/06/24 07:56 Fluticasone/Salmeterol 45-21 Mcg Inhaler 1 Puff INHALATION 2 puff Q12HRT ROSEMARIE Administration Senna 17.2 mg 11/04/24 21:00 11/05/24 21:36 Sennosides 8.6 Mg Tablet PO 17.2 mg HS ROSEMARIE Administration Radiology Results: ITS Impressions Abdomen/Pelvis CT 11/01/24 12:11 IMPRESSION: 1. Radiographic uncomplicated proximal sigmoid diverticulitis. 2. No significant interval change since 12/23/2023 in a 13.0 cm Bosniak 3 complex cystic left renal lesion. 3. Small portion of the anterior wall of a segment of small bowel projects into the orifice of a small fat-containing umbilical hernia. No bowel obstruction. Chest X-Ray 11/01/24 13:44 IMPRESSION: Moderate cardiomegaly. Bibasilar atelectasis. Mild pulmonary vascular congestion. Hand X-Ray 11/02/24 22:03 IMPRESSION: No acute osseous abnormality left hand. Osteopenia of the bones. Polyarticular osteoarthritic changes Wrist X-Ray 11/04/24 12:41 Impression: Stable degenerative changes at the radial aspect of the wrist, as detailed above. Possible fusion of the trapezium and trapezoid. Ankle X-Ray 11/04/24 12:42 Impression: Unremarkable left ankle. Knee X-Ray 11/04/24 12:42 Impression: Unremarkable right knee radiographs. Labs Labs: Laboratory Results - last 24 hr 11/05/24 11/05/24 11/06/24 16:55 20:17 04:58 WBC 6.7 RBC 2.98 L Hgb 9.1 L Hct 29.7 L MCV 99.7 MCH 30.5 MCHC 30.6 L RDW 13.9 Plt Count 150 MPV 9.7 Immature Gran % (Auto) 1.2 H Neut % (Auto) 66.5 Lymph % (Auto) 19.5 [place] % (Auto) 9.4 H Eos % (Auto) 2.8 Baso % (Auto) 0.6 Lymph # (Auto) 1.30 [place] # (Auto) 0.6 Eos # (Auto) 0.2 Baso # (Auto) 0.0 Abs Immat Gran (auto) 0.08 H Absolute Neuts (auto) 4.4 Absolute Nucleated RBC 0.000 Nucleated RBC % 0.0 Sodium 140 Potassium 3.8 Chloride 109 H Carbon Dioxide 25 Anion Gap 6 BUN 44 H Creatinine 1.07 H Estim Creat Clear Calc 33 Estimated GFR 49 L Glucose 153 H POC Capillary Glucose 186 H 194 H Calcium 8.3 L 11/06/24 11/06/24 08:06 11:41 WBC RBC Hgb Hct MCV MCH MCHC RDW Plt Count MPV Immature Gran % (Auto) Neut % (Auto) Lymph % (Auto) [place] % (Auto) Eos % (Auto) Baso % (Auto) Lymph # (Auto) [place] # (Auto) Eos # (Auto) Baso # (Auto) Abs Immat Gran (auto) Absolute Neuts (auto) Absolute Nucleated RBC Nucleated RBC % Sodium Potassium Chloride Carbon Dioxide Anion Gap BUN Creatinine Estim Creat Clear Calc Estimated GFR Glucose POC Capillary Glucose 159 H 192 H Calcium Quality VTE Prophylaxis VTE prophylaxis: mechanical ordered and pharmacologic ordered
[2024-11-06] MEDS: SENNOSIDES 8.6 MG TABLET 17.2 MG PO (21:25)
[2024-11-07] MEDS: ACETAMINOPHEN 500 MG TABLET 1000 MG PO ×3 (00:43→19:57)
[2024-11-07 04:58] LABS: Hematocrit 30.4 % (37.0-47.0); Hemoglobin 9.2 g/dL (12.0-15.0); Immature Granulocyte Percent A 1.8 % (0-0.5); Lymphocytes Absolute Auto 1.40 K/mm3 (0.9-3.2); Mean Corpuscular HGB Conc 30.3 g/dl (32-36); Mean Corpuscular Hemoglobin 29.9 pg (26-34); Mean Corpuscular Volume 98.7 fl (80-100); Nucleated Red Blood Cells Absolute Auto 0.000 K/mm3 (0.0-0.012); Nucleated Red Blood Cells Perc 0.0 % (0.0-0.2); Platelet Count Result 166 k/mm3 (150-375); Red Blood Count 3.08 M/mm3 (4.2-5.4); White Blood Count 6.6 K/mm3 (4.5-10.0)
[2024-11-07 05:13] LABS: Anion Gap 5 mmol/L (4-12); Blood Urea Nitrogen 40 mg/dL (7-17); Calcium 8.8 mg/dL (8.4-10.2); Carbon Dioxide 27 mmol/L (22-30); Chloride 109 mmol/L (98-107); Estimated CRCL calculation 34 ml/min; Estimated Glomerular Filt Rate 51; Glucose 129 mg/dL (65-110); Potassium 3.9 mmol/L (3.4-5.0); Sodium 141 mmol/L (137-145)
[2024-11-07 05:56] VITALS: BP 150/58; PULSE 63; RESP 16; TEMP 36.6; O2SAT 94
[2024-11-07] MEDS: FLUTICASONE/SALMETEROL 45-21 MCG INHALER 1 PUFF 2 PUFF INHALATION ×2 (07:39→22:13)
[2024-11-07 08:47] VITALS: PULSE 63
[2024-11-07] MEDS: PANTOPRAZOLE 40 MG TABLET PO (08:47)
[2024-11-07] MEDS: METOPROLOL TARTRATE 25 MG TABLET 75 MG PO ×2 (08:47→21:44)
[2024-11-07] MEDS: SACUBITRIL/VALSARTAN 24-26 MG TABLET 1 TAB BY MOUTH ×2 (08:47→21:47)
[2024-11-07] MEDS: INSULIN ASPART (*BKC) 100 UNITS/ML SUB-Q ×3 (08:49→17:36)
[2024-11-07] MEDS: INSULIN GLARGINE (*BKC) 100 UNITS/ML 15 UNITS SUB-Q (08:50)
--- NOTE | 2024-11-07 11:49 | P.PNIM_ITS ---
Progress Note: A&P Assessment and Plan (1) Diverticulitis: Code(s): K57.92 - Diverticulitis of intestine, part unspecified, without perforation or abscess without bleeding Status: Acute Assessment and Plan: CT abdomen and pelvis showed sigmoid diverticulitis and constipation (no obstruction). -IVF discontinued 11/05; pt eating and drinking appropriately. -Levofloxacin/flagyl for 5 days (total) for acute diverticulitis; on day 25; discontinue antibiotics on 11/08/24 -Also had constipation on admission, now resolved -ESR/CRP elevated -Pain management (2) Joint pain: Code(s): M25.50 - Pain in unspecified joint Status: Acute Assessment and Plan: Uric acid level elevated to 13.1, phos level 2.9. Pain to left ankle, left hand/wrist and right knee. No recent fall reported. X-rays of ankle left hand and wrist and right knee no acute findings. . -Orthopedic surgery consulted and not a candidate for a steroid injection -Creatinine clearance 23. -Colchicine 1.2mg x1, repeat dose 0.6mg one hour later if needed. Monitor for diarrhea, nausea with colchicine. Would not repeat dose for 1-2 weeks after that unless ANGELINA resolves. -Not on allopurinol at home, consider starting with PCP after acute flare. -PT/OT evaluation pending (3) ANGELINA (acute kidney injury): Code(s): N17.9 - Acute kidney failure, unspecified Status: Acute Assessment and Plan: -Creatinine on admission 2.3 -> 1.8 -> 1.43 -> 1.1, baseline 1. -11/01 UA was normal, no evidence of infection. -Has a complex left renal cyst, about [address] with no change from prior. Has previously been evaluated by Urology -Last echo 10/01/2023 LV function hyperdynamic, 70% with grade 1 diastolic dysfunction -Holding diuretics which can trigger gout flares -RESOLVED (4) Constipation: Qualifiers: Constipation type: unspecified constipation type Qualified Code(s): K59.00 - Constipation, unspecified Code(s): K59.00 - Constipation, unspecified Status: Acute Assessment and Plan: Severe seen on CT, resolved with lactulose and senna Aggressive bowel protocol -schedule hs senna -RESOLVED. (5) Diastolic congestive heart failure: Code(s): I50.30 - Unspecified diastolic (congestive) heart failure Status: Acute Assessment and Plan: -Currently holding Lasix, zaroxolyn, and spironolactone due to ANGELINA. PCP increased diuretics outpatient due to increased abdominal swelling. and increased shortness of breath. Not currently short of breath. -Prior TTE with LVEF >70% and grade 1 diastolic dysfunction -Blood pressure controlled (6) Hypertension: Qualifiers: Hypertension type: unspecified Qualified Code(s): I10 - Essential (primary) hypertension Code(s): I10 - Essential (primary) hypertension Status: Chronic Assessment and Plan: -enteresto -Diuretics on hold (7) Paroxysmal atrial fibrillation: Code(s): I48.0 - Paroxysmal atrial fibrillation Status: Acute Assessment and Plan: Continue Entresto, metoprolol, Cardura (8) Type 2 diabetes mellitus with hyperglycemia: Code(s): E11.65 - Type 2 diabetes mellitus with hyperglycemia Status: Acute Assessment and Plan: Home meds: Lantus 16 units daily , SSI TID with meals Blood sugars above goal today --Diabetic diet --Accu-Cheks a.c. HS --Continue Lantus 5 units daily --lispro 4TID with meals & SSI --Discontinue fluids. Subjective Date/time seen: 11/07/24 11:49 Interval history: per HPI: 83-year-old past medical history of CHF, asthma, gout, history of C diff and hepatic steatosis with multiple complaints including abdominal pain and constipation. Patient states that she has not had bowel movement in about 7 days. She tried a suppository with no luck. Due to severe cramping and abdominal pain she came to the hospital. Patient denies nausea vomiting fever chills. Work in the ED shows anemia at 10.4, BUN of 80, creatinine of 2.36, GFR 20, glucose of 186, BNP of 376, UA negative for infection. Chest x-ray shows moderate cardiomegaly, bibasilar atelectasis, and mild pulmonary vascular congestion. CT abdomen pelvis show sigmoid diverticulitis, unchanged renal cysts, umbilical hernia containing fat. 11/06/24 Patient was seen and examined at bedside. she is feeing better. has been treated for diverticulitis with Flagyl and levaquin. also has R knee and L wrist pain and L ankle pain which are improving. she has been treated for possible gout. orthopedic team onboard recommended conservative management. 11/07/24 Patient is feeling better. her joints swelling and pain getting better. working with Pt/OT. plan for possible Dc tomorrow. Review of Systems Review of Systems: 12 systems were reviewed and are negativ e except for as per HPI. Exam Narrative: GENERAL: Comfortable, no acute distress HENMT: moist mucous membranes EYES: EOM intact b/l RESPIRATORY: clear to auscultation, no increased respiratory effort CARDIO: Regular rate and rhythm GI: soft, nontender, bowel sounds present SKIN/EXTREMITIES: Tenderness over left wrist. Left wrist is swollen and normalin color. painful to touch and limited ROM. R nee decrease ROM NEURO: PROM intact, answers questions appropriately, A&O x4 Objective Data Vital Signs Vital Signs: Vital Signs - 24 hr 11/06/24 14:00 11/06/24 20:00 11/06/24 21:17 Temperature 97.5 F L 97.0 F L Pulse Rate 80 61 Respiratory Rate 18 16 Blood Pressure 103/46 L 134/61 Pulse Oximetry 95 100 Oxygen Delivery Room Air 11/06/24 21:24 11/07/24 05:56 11/07/24 08:47 Temperature 97.8 F Pulse Rate 61 63 63 Respiratory Rate 16 Blood Pressure 150/58 H Pulse Oximetry 94 Oxygen Delivery 11/07/24 09:00 Temperature Pulse Rate Respiratory Rate Blood Pressure Pulse Oximetry Oxygen Delivery Room Air Intake/Output Intake/Output: Intake & Output 11/04/24 11/05/24 11/06/24 11/07/24 23:59 23:59 23:59 23:59 Intake Total 750 1650 920 320 Output Total 1515 400 650 400 Balance -765 1250 270 -80 Meds/Results Medications: Active Medications Generic Name Dose Route Start Last Admin Trade Name Freq PRN Reason Stop Dose Admin Acetaminophen 1,000 mg 11/02/24 12:35 11/07/24 09:00 Acetaminophen 500 Mg Tablet PO 1,000 mg Q6H PRN Administration Mild Pain (1-3) or Fever Al Hydrox/Mg Hydrox/Simethicone 30 ml 11/02/24 15:31 Mag Hydrox/Al Hydrox/Simeth 30 Ml Udc PO Q6H PRN Indigestion Albuterol 2 puff 11/01/24 18:07 Albuterol Sulfate (*Sp) Aerosol 1 Puff INHALATION Q2HRT PRN sob, wheezing Bisacodyl 10 mg 11/01/24 21:49 Bisacodyl 10 Mg Suppository RECTAL QAM PRN Constipation Dextrose 12.5 gm 11/01/24 15:33 Dextrose 50% 25 Gm/50 Ml Syringe IV PUSH PRN PRN Hypoglycemia Protocol Docusate Sodium 100 mg 11/02/24 09:00 11/03/24 08:37 Docusate Sodium 100 Mg Capsule PO 100 mg DAILY ROSEMARIE Administration Doxazosin Mesylate 8 mg 11/02/24 12:00 11/06/24 12:18 Doxazosin Mesylate 4 Mg Tablet BY MOUTH 8 mg DAILY@1200 ROSEMARIE Administration Glucagon 1 mg 11/01/24 15:33 Glucagon For Inj 1 Mg Vial IM PRN PRN Hypoglycemia Protocol Glucose 15 gm 11/01/24 15:33 Glucose Oral Gel 15 Gm Of Glucse In 37.5 Gm Tube PO PRN PRN Hypoglycemia Protocol Heparin Sodium (Porcine) 5,000 units 11/02/24 09:00 11/07/24 08:49 Heparin Sodium 5,000 Units/Ml Vial SUB-Q 5,000 units Q12HR ROSEMARIE Administration Dextrose 1,000 mls @ 100 mls/hr 11/01/24 15:33 Dextrose 5% 1,000 Ml IVPB PRN PRN Hypoglycemia Protocol Insulin Aspart 2 - 5 units 11/01/24 17:00 11/07/24 08:38 Insulin Aspart (*Bkc) 100 Units/Ml SUB-Q Not Given TIDWM ROSEM[facility]IE Protocol Insulin Aspart 1 - 2 units 11/01/24 21:00 11/06/24 21:31 Insulin Aspart (*Bkc) 100 Units/Ml SUB-Q 1 units HS ROSEMARIE Administration Protocol Insulin Aspart 4 units 11/04/24 12:10 11/07/24 08:49 Insulin Aspart (*Bkc) 100 Units/Ml 0.05 units/kg (4 units) 4 units SUB-Q Administration TIDWM ROSEMARIE Insulin Glargine 15 units 11/04/24 12:10 11/07/24 08:50 Insulin Glargine (*Bkc) 100 Units/Ml SUB-Q 15 units DAILY ROSEMARIE Administration Lactulose 20 gm 11/02/24 17:00 11/03/24 08:43 Lactulose 20 Gm/30 Ml Udc PO Not Given TID ROSEMARIE Levofloxacin 250 mg 11/04/24 09:00 11/07/24 08:47 Levofloxacin 250 Mg Tablet PO 250 mg QAM ROSEMARIE Administration Metoprolol Tartrate 75 mg 11/01/24 21:00 11/07/24 08:47 Metoprolol Tartrate 25 Mg Tablet PO 75 mg Q12HR ROSEMARIE Administration Metronidazole 500 mg 11/03/24 14:00 11/07/24 06:15 Metronidazole 500 Mg Tablet PO 500 mg Q8HR ROSEMARIE Administration Ondansetron HCl 4 mg 11/02/24 14:17 11/03/24 09:01 Ondansetron Hcl Odt 4 Mg Tablet PO 4 mg Q6H PRN Administration Nausea And Vomiting Pantoprazole Sodium 40 mg 11/02/24 09:00 11/07/24 08:47 Pantoprazole 40 Mg Tablet PO 40 mg QAM ROSEMARIE Administration Sacubitril/Valsartan 1 tab 11/01/24 21:00 11/07/24 08:47 Sacubitril/Valsartan 24-26 Mg Tablet BY MOUTH 1 tab Q12HR ROSEMARIE Administration Fluticasone/Salmeterol 2 puff 11/01/24 20:00 11/07/24 07:39 Fluticasone/Salmeterol 45-21 Mcg Inhaler 1 Puff INHALATION 2 puff Q12HRT ROSEMARIE Administration Senna 17.2 mg 11/04/24 21:00 11/06/24 21:25 Sennosides 8.6 Mg Tablet PO 17.2 mg HS ROSEMARIE Administration Radiology Results: ITS Impressions Abdomen/Pelvis CT 11/01/24 12:11 IMPRESSION: 1. Radiographic uncomplicated proximal sigmoid diverticulitis. 2. No significant interval change since 12/23/2023 in a 13.0 cm Bosniak 3 complex cystic left renal lesion. 3. Small portion of the anterior wall of a segment of small bowel projects into the orifice of a small fat-containing umbilical hernia. No bowel obstruction. Chest X-Ray 11/01/24 13:44 IMPRESSION: Moderate cardiomegaly. Bibasilar atelectasis. Mild pulmonary vascular congestion. Hand X-Ray 11/02/24 22:03 IMPRESSION: No acute osseous abnormality left hand. Osteopenia of the bones. Polyarticular osteoarthritic changes Wrist X-Ray 11/04/24 12:41 Impression: Stable degenerative changes at the radial aspect of the wrist, as detailed above. Possible fusion of the trapezium and trapezoid. Ankle X-Ray 11/04/24 12:42 Impression: Unremarkable left ankle. Knee X-Ray 11/04/24 12:42 Impression: Unremarkable right knee radiographs. Labs Labs: Laboratory Results - last 24 hr 11/06/24 11/06/24 11/07/24 17:04 21:11 04:10 WBC 6.6 RBC 3.08 L Hgb 9.2 L Hct 30.4 L MCV 98.7 MCH 29.9 MCHC 30.3 L RDW 13.6 Plt Count 166 MPV 9.6 Immature Gran % (Auto) 1.8 H Neut % (Auto) 64.1 Lymph % (Auto) 21.3 [place] % (Auto) 9.3 H Eos % (Auto) 2.7 Baso % (Auto) 0.8 Lymph # (Auto) 1.40 [place] # (Auto) 0.6 Eos # (Auto) 0.2 Baso # (Auto) 0.1 Abs Immat Gran (auto) 0.12 H Absolute Neuts (auto) 4.2 Absolute Nucleated RBC 0.000 Nucleated RBC % 0.0 Sodium 141 Potassium 3.9 Chloride 109 H Carbon Dioxide 27 Anion Gap 5 BUN 40 H Creatinine 1.03 H Estim Creat Clear Calc 34 Estimated GFR 51 L Glucose 129 H POC Capillary Glucose 223 H 221 H Calcium 8.8 11/07/24 08:05 WBC RBC Hgb Hct MCV MCH MCHC RDW Plt Count MPV Immature Gran % (Auto) Neut % (Auto) Lymph % (Auto) [place] % (Auto) Eos % (Auto) Baso % (Auto) Lymph # (Auto) [place] # (Auto) Eos # (Auto) Baso # (Auto) Abs Immat Gran (auto) Absolute Neuts (auto) Absolute Nucleated RBC Nucleated RBC % Sodium Potassium Chloride Carbon Dioxide Anion Gap BUN Creatinine Estim Creat Clear Calc Estimated GFR Glucose POC Capillary Glucose 134 H Calcium Quality VTE Prophylaxis VTE prophylaxis: mechanical ordered and pharmacologic ordered
[2024-11-07] MEDS: DOXAZOSIN MESYLATE 4 MG TABLET 8 MG BY MOUTH (12:12)
[2024-11-07 13:51] VITALS: BP 143/52; PULSE 61; RESP 16; TEMP 36.6; O2SAT 100
[2024-11-07 21:44] VITALS: PULSE 64
[2024-11-07] MEDS: SENNOSIDES 8.6 MG TABLET 17.2 MG PO (21:44)
[2024-11-07 22:00] VITALS: BP 142/52; PULSE 63; RESP 18; TEMP 36.6; O2SAT 95
[2024-11-08 05:27] LABS: Hematocrit 31.6 % (37.0-47.0); Hemoglobin 9.6 g/dL (12.0-15.0); Immature Granulocyte Percent A 2.0 % (0-0.5); Lymphocytes Absolute Auto 1.45 K/mm3 (0.9-3.2); Mean Corpuscular HGB Conc 30.4 g/dl (32-36); Mean Corpuscular Hemoglobin 30.4 pg (26-34); Mean Corpuscular Volume 100.0 fl (80-100); Nucleated Red Blood Cells Absolute Auto 0.000 K/mm3 (0.0-0.012); Nucleated Red Blood Cells Perc 0.0 % (0.0-0.2); Platelet Count Result 169 k/mm3 (150-375); Red Blood Count 3.16 M/mm3 (4.2-5.4); White Blood Count 7.4 K/mm3 (4.5-10.0)
[2024-11-08 05:45] LABS: Anion Gap 5 mmol/L (4-12); Blood Urea Nitrogen 28 mg/dL (7-17); Calcium 8.7 mg/dL (8.4-10.2); Carbon Dioxide 26 mmol/L (22-30); Chloride 108 mmol/L (98-107); Estimated CRCL calculation 42 ml/min; Estimated Glomerular Filt Rate > 60; Glucose 149 mg/dL (65-110); Potassium 4.1 mmol/L (3.4-5.0); Sodium 139 mmol/L (137-145)
[2024-11-08 06:00] VITALS: BP 141/57; PULSE 61; RESP 18; TEMP 36.7; O2SAT 97
[2024-11-08 08:00] VITALS: PULSE 86; RESP 16; O2SAT 93
[2024-11-08] MEDS: FLUTICASONE/SALMETEROL 45-21 MCG INHALER 1 PUFF 2 PUFF INHALATION (08:00)
[2024-11-08] MEDS: PANTOPRAZOLE 40 MG TABLET PO (09:20)
[2024-11-08] MEDS: METOPROLOL TARTRATE 25 MG TABLET 75 MG PO (09:21)
[2024-11-08] MEDS: SACUBITRIL/VALSARTAN 24-26 MG TABLET 1 TAB BY MOUTH (09:21)
[2024-11-08] MEDS: INSULIN ASPART (*BKC) 100 UNITS/ML SUB-Q ×3 (09:23→12:07)
[2024-11-08] MEDS: INSULIN GLARGINE (*BKC) 100 UNITS/ML 15 UNITS SUB-Q (09:23)
--- NOTE | 2024-11-08 09:29 | PCNWS ---
Weekly nutritional screen. Patient is tolerating current Diabetic diet, with adequate intake 80-100%. No weight loss reported. No nutritional needs at this time.
--- NOTE | 2024-11-08 10:55 | P.DS_ITS ---
DS: Admitting Diagnosis Discharge Date 11/08/24 Admitting Diagnosis R knee , L ankle and L wrist pain DS: Discharge Diagnosis Discharge Diagnosis (1) Diverticulitis: Code(s): K57.92 - Diverticulitis of intestine, part unspecified, without perforation or abscess without bleeding Status: Acute Assessment and Plan: CT abdomen and pelvis showed sigmoid diverticulitis and constipation (no obstruction). -IVF discontinued 11/05; pt eating and drinking appropriately. -Levofloxacin/flagyl for 5 days (total) for acute diverticulitis; on day 2; discontinue antibiotics on 11/08/24 -Also had constipation on admission, now resolved -ESR/CRP elevated -Pain management (2) Joint pain: Code(s): M25.50 - Pain in unspecified joint Status: Acute Assessment and Plan: Uric acid level elevated to 13.1, phos level 2.9. Pain to left ankle, left hand/wrist and right knee. No recent fall reported. X-rays of ankle left hand and wrist and right knee no acute findings. . -Orthopedic surgery consulted and not a candidate for a steroid injection -Creatinine clearance 23. -received Colchicine. -Not on allopurinol at home, consider starting with PCP after acute flare. -PT/OT evaluation, patient declined rehab (3) ANGELINA (acute kidney injury): Code(s): N17.9 - Acute kidney failure, unspecified Status: Acute Assessment and Plan: -Creatinine on admission 2.3 -> 1.8 -> 1.43 -> 1.1, baseline 1. -11/01 UA was normal, no evidence of infection. -Has a complex left renal cyst, about [address] with no change from prior. Has previously been evaluated by Urology -Last echo 10/01/2023 LV function hyperdynamic, 70% with grade 1 diastolic dysfunction -RESOLVED (4) Constipation: Qualifiers: Constipation type: unspecified constipation type Qualified Code(s): K59.00 - Constipation, unspecified Code(s): K59.00 - Constipation, unspecified Status: Acute Assessment and Plan: Severe seen on CT, resolved with lactulose and senna Aggressive bowel protocol -schedule hs senna -RESOLVED. (5) Diastolic congestive heart failure: Code(s): I50.30 - Unspecified diastolic (congestive) heart failure Status: Acute Assessment and Plan: - Lasix, zaroxolyn, and spironolactone was on hold due to ANGELINA. PCP increased diuretics outpatient due to increased abdominal swelling. and increased shortness of breath. Not currently short of breath. -Prior TTE with LVEF >70% and grade 1 diastolic dysfunction -Blood pressure controlled (6) Hypertension: Qualifiers: Hypertension type: unspecified Qualified Code(s): I10 - Essential (primary) hypertension Code(s): I10 - Essential (primary) hypertension Status: Chronic Assessment and Plan: -enteresto (7) Paroxysmal atrial fibrillation: Code(s): I48.0 - Paroxysmal atrial fibrillation Status: Acute Assessment and Plan: Continue Entresto, metoprolol, Cardura (8) Type 2 diabetes mellitus with hyperglycemia: Code(s): E11.65 - Type 2 diabetes mellitus with hyperglycemia Status: Acute Assessment and Plan: Home meds: Lantus 16 units daily , SSI TID with meals --Diabetic diet --Accu-Cheks a.c. HS --Continue Lantus 5 units daily --lispro 4TID with meals & SSI --Discontinue fluids. DS: Summary Hospital Course Hospital Course: per HPI: 83-year-old past medical history of CHF, asthma, gout, history of C diff and hepatic steatosis with multiple complaints including abdominal pain and constipation. Patient states that she has not had bowel movement in about 7 days. She tried a suppository with no luck. Due to severe cramping and abdom inal pain she came to the hospital. Patient denies nausea vomiting fever chills. Work in the ED shows anemia at 10.4, BUN of 80, creatinine of 2.36, GFR 20, glucose of 186, BNP of 376, UA negative for infection. Chest x-ray shows moderate cardiomegaly, bibasilar atelectasis, and mild pulmonary vascular congestion. CT abdomen pelvis show sigmoid diverticulitis, unchanged renal cysts, umbilical hernia containing fat. 11/06/24 Patient was seen and examined at bedside. she is feeing better. has been treated for diverticulitis with Flagyl and levaquin. also has R knee and L wrist pain and L ankle pain which are improving. she has been treated for possible gout. orthopedic team onboard recommended conservative management. 11/07/24 Patient is feeling better. her joints swelling and pain getting better. working with Pt/OT. 11/08/24 Patient was seen and examined at bedside. she is feeling better. deneis chest pain, SOB, Abd pain, N/V. completed ABx Will discharge patient home. Status at Discharge Overall status at discharge: patient is progressing back to baseline Time Spent with Patient Time attestation: Total time spent providing and/or coordinating discharge services: Time spent: Greater than 30 minutes Exam Narrative: GENERAL: Comfortable, no acute distress HENMT: moist mucous membranes EYES: EOM intact b/l RESPIRATORY: clear to auscultation, no increased respiratory effort CARDIO: Regular rate and rhythm GI: soft, nontender, bowel sounds present SKIN/EXTREMITIES: R knee and L ankle almost back to normal. Left wrist is swelling improving and normal in color. R nee decrease ROM NEURO: PROM intact, answers questions appropriately, A&O x4 DS: Data Data Completed and Pending Labs on day of discharge: Labs from last 24 hours 11/08/24 11/08/24 11/07/24 08:12 05:11 20:05 WBC 7.4 RBC 3.16 L Hgb 9.6 L Hct 31.6 L MCV 100.0 MCH 30.4 MCHC 30.4 L RDW 13.6 Plt Count 169 MPV 9.3 Immature Gran % (Auto) 2.0 H Neut % (Auto) 66.2 Lymph % (Auto) 19.7 Riley % (Auto) 8.8 H Eos % (Auto) 2.2 Baso % (Auto) 1.1 Lymph # (Auto) 1.45 Riley # (Auto) 0.7 H Eos # (Auto) 0.2 Baso # (Auto) 0.1 Abs Immat Gran (auto) 0.15 H Absolute Neuts (auto) 4.9 Absolute Nucleated RBC 0.000 Nucleated RBC % 0.0 Sodium 139 Potassium 4.1 Chloride 108 H Carbon Dioxide 26 Anion Gap 5 BUN 28 H D Creatinine 0.83 Estim Creat Clear Calc 42 Estimated GFR > 60 Glucose 149 H POC Capillary Glucose 155 H 193 H Calcium 8.7 11/07/24 11/07/24 17:03 11:50 WBC RBC Hgb Hct MCV MCH MCHC RDW Plt Count MPV Immature Gran % (Auto) Neut % (Auto) Lymph % (Auto) Riley % (Auto) Eos % (Auto) Baso % (Auto) Lymph # (Auto) Riley # (Auto) Eos # (Auto) Baso # (Auto) Abs Immat Gran (auto) Absolute Neuts (auto) Absolute Nucleated RBC Nucleated RBC % Sodium Potassium Chloride Carbon Dioxide Anion Gap BUN Creatinine Estim Creat Clear Calc Estimated GFR Glucose POC Capillary Glucose 146 H 175 H Calcium Discharge Plan Discharge Attending physician on discharge: Tanner Cordoba Consulting providers: Saritha Foster; Jm Garcia; Tanner Cordoba Discharging Clinician: Tanner Cordoba Anticipated Discharge Date/Time: 11/08/24 11:15 Patient Disposition: Home Activity: as tolerated Diet: heart healthy Discharge Instructions: follow with PCP in one week. check your blood pressure and heart rate regularly and report to PCP Patient Instructions: Antibiotic Form Patient Language: Citizen Of [place] Stand Alone Forms: General Discharge Information Follow-up/Referrals: Roel Haynes MD [Primary Care Provider] - 1 Week Discharge Medications: Continued hydrocortisone acetate [Anusol-HC] 25 mg suppository 25 mg RECTAL ONCE PRN (Reason: hemmorhoids) tolnaftate 1 % powder 1 applic topical Q12HR PRN (Reason: irritation) Patient Comments: breakout up breast Rx Instructions: apply to affected areas hydralazine 25 mg tablet See Rx Instructions .ROUTE .COMPLEX Rx Instructions: TAKE 1 TABLET BY MOUTH THREE TIMES DAILY insulin glargine [Basaglar KwikPen U-100 Insulin] 100 unit/mL (3 mL) insulin pen 16 unit subcut DAILY dextromethorphan-guaifenesin [Safe Tussin DM] 10-100 mg/5 mL Liquid 10 ml PO Q4-6H PRN (Reason: Cough) Patient Comments: as needed--approx 1-2 tablespoons a day acetaminophen [Tylenol Extra Strength] 500 mg Tablet 650 mg PO Q6H PRN (Reason: pain 1-3) ferrous sulfate [Slow Release Iron] 142 mg (45 mg iron) Tablet Extended Release 142 mg PO DAILY@0800 Qty: 30 0RF folic acid 1 mg Tablet 1 mg PO DAILY Qty: 30 0RF metolazone 5 mg tablet 10 mg PO 1200 cyanocobalamin (vitamin B-12) [Vitamin B-12] 1,000 mcg Tablet 1,000 mcg PO 1200 doxazosin 8 mg tablet See Rx Instructions .ROUTE .COMPLEX Rx Instructions: Take 1 tablet by mouth once daily at 1200 insulin aspart U-100 [Novolog FlexPen U-100 Insulin] 100 unit/mL (3 mL) insulin pen See Rx Instructions subcut TID Rx Instructions: Inject 3-6 units before meals subcutaneously three times a day; budesonide-formoterol [Breyna] 80-4.5 mcg/actuation HFA aerosol inhaler See Rx Instructions .ROUTE .COMPLEX Rx Instructions: Inhale 2 puffs by mouth daily (DME) pen needle, diabetic 31 gauge x 5/16 needle See Rx Instructions .Route Qty: 150 5RF Rx Instructions: Use to inject insulin 4 times daily or as directed (DME) FreeStyle Calixto 3 [place] Misc See Rx Instructions .Route Qty: 1 0RF Rx Instructions: Use to check blood glucose tid or as directed metoprolol tartrate 75 mg tablet 75 mg PO BID Qty: 180 3RF (DME) FreeStyle Calixto 3 Sensor Device See Rx Instructions .Route Qty: 4 5RF Rx Instructions: Use to check blood glucose tid or as directed sucralfate 100 mg/mL suspension 1,000 mg PO ACHS PRN (Reason: GERD) Qty: 420 3RF albuterol sulfate [Ventolin HFA] 90 mcg/actuation HFA aerosol inhaler 2 puff INHALATION Q2H PRN (Reason: sob, wheezing) Qty: 8.5 5RF (DME) FreeStyle Calixto 2 Plus Sensor Device See Rx Instructions .Route Qty: 6 6RF Rx Instructions: As directed ondansetron 4 mg tablet,disintegrating See Rx Instructions .ROUTE .COMPLEX Qty: 20 3RF Dose Instruction: DISSOLVE 1 TABLET IN MOUTH EVERY 8 HOURS Rx Instructions: DISSOLVE 1 TABLET IN MOUTH EVERY 8 HOURS solifenacin 10 mg tablet 10 mg PO DAILY Qty: 30 0RF spironolactone 25 mg tablet See Rx Instructions .ROUTE .COMPLEX Qty: 90 0RF Dose Instruction: Take 1 tablet by mouth once daily Rx Instructions: Take 1 tablet by mouth once daily pantoprazole 40 mg tablet,delayed release (DR/EC) 40 mg PO QAM Qty: 90 2RF Entresto 24-26 mg tablet See Rx Instructions .ROUTE .COMPLEX Qty: 60 0RF Dose Instruction: TAKE 1 TABLET BY MOUTH EVERY 12 HOURS Rx Instructions: TAKE 1 TABLET BY MOUTH EVERY 12 HOURS Changed furosemide 40 mg tablet 40 mg PO DAILY Qty: 180 2RF Discontinued levofloxacin 500 mg tablet 500 mg PO DAILY Qty: 7 0RF Patient Comments: 2 doses left Other Ambulatory Orders: OT Outpatient Eval and Treat (ONCE) Timeframe: 20241108 Location: Determined by Patient Ordered By: Tanner Cordoba PT Outpatient Eval and Treat (ONCE) Timeframe: 20241108 Location: Determined by Patient Ordered By: Tanner Cordoba Date of admission: 11/02/24 09:44 Primary Care Provider: Roel Haynes Admitting Provider: Marga Hanna Attending physician on admission: Marga Hanna Condition: Stable Quality VTE Prophylaxis VTE prophylaxis: mechanical ordered and pharmacologic ordered
[2024-11-08] MEDS: ACETAMINOPHEN 500 MG TABLET 1000 MG PO (12:05)
[2024-11-08] MEDS: DOXAZOSIN MESYLATE 4 MG TABLET 8 MG BY MOUTH (12:06)
[2024-11-08] MEDS: ONDANSETRON HCL ODT 4 MG TABLET PO (12:14)
== END 2024-11-08 13:35 | disposition home or self-care (01) | DRG 392 ==
LOC: ANHED 14:17 → ANH2MED 15:10
PROVIDERS: Nurse Practitioner Acute Care; Nurse Practitioner Gerontology; Physician Assistant; Admitting Provider Internal Medicine; Emergency Provider Emergency Medicine; PCP Family Medicine Adolescent Medicine; Visit Provider Internal Medicine
DX: K57.32 Diverticulitis of large intestine without perforation or abscess without bleeding (principal); I50.22 Chronic systolic (congestive) heart failure; N17.9 Acute kidney failure, unspecified; I11.0 Hypertensive heart disease with heart failure; E86.0 Dehydration; N28.9 Disorder of kidney and ureter, unspecified; K76.0 Fatty (change of) liver, not elsewhere classified; K21.9 Gastro-esophageal reflux disease without esophagitis; H35.30 Unspecified macular degeneration; I70.0 Atherosclerosis of aorta; N32.81 Overactive bladder; D64.9 Anemia, unspecified; E11.65 Type 2 diabetes mellitus with hyperglycemia; I48.0 Paroxysmal atrial fibrillation; K59.00 Constipation, unspecified; M25.59 Pain in other specified joint; Z79.01 Long term (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 of anticoagulants; Z90.49 Acquired absence of other specified parts of digestive tract
CPT/HCPCS: 36415; 71045; 73100; 73130; 73560; 73610; 74176; 80048; 80053; 80076; 81003; 82140; 82728; 82948; 83540; 83550; 83690; 83880; 84100; 84550; 85025; 85652; 86140; 93005; 94640; 96361; 96374; 97110; 97116; 97161; 97165; 97530; 97535; 99285; A9270; G0378; J1644; J1815; J1885; J1956; J2765; J7030; J7120

== ENCOUNTER 2025-02-21 11:00 | Outpatient (RCR) | payer MEDICARE, SELFPAY ==
--- NOTE | 2024-12-03 17:40 | OPREHPOC ---
Outpatient Therapy Plan of Care This is a Multidisciplinary Plan of Care that may contain components documented by all disciplines (PT, OT, and ST.) PT Problem 1 PT Problem #1 Knowledge Deficit PT Goal 1 Goal / Goal Update [place] with HEP Target Visit 4 PT Goal 2 Goal / Goal Update Patient will tolerate 5 minutes of light cardiovascular exercise without rest Target Visit 8 PT Problem 2 PT Problem #2 Impaired Strength PT Goal 1 Goal / Goal Update 1. Improve raghavendra hip flexion strength to 4/5 to improve foot clearance with gait. 2. Improve raghavendra hip abduction strength to 4/5 to improve lateral stability during gait and ADL performance Target Visit 8 PT Problem 3 PT Problem #3 Impaired Functional Mobility PT Goal 1 Goal / Goal Update 1. Demonstrate ability to ascend and descend 3 steps with use of handrail 2. Ambulate 150 feet in 2 minute walk test 3. Perform sit to stand without use of raghavendra arms x 1 Target Visit 8
--- NOTE | 2024-12-03 17:40 | PTOPEVAL1 ---
Assessment and note entered by Kavin Chaidez, PT Evaluation Information Assessment Status Evaluation ICD-10 Condition Codes (PT) Difficulty Walking R26.2,Weakness R53.1 Onset October 2024 Subjective Information Reports that she was in the hospital for about 3 weeks with CHF. Reports that she wears out really easy at home and has to be active due to frequently taking water pills. Has to walk about 30 feet to the bathroom in home. She is using a 2 wheeled walker with L elbow elevation. She reports that prior to being in the hospital she was not having too much pain. Reports that she is not eating much right now and is not very hungry. She has 4 steps into and out of the home. She is currently sleeping in an electric recliner. Currently taking Tylenol as needed at meals. Reported Pain Level Pain Score 5: Self Report Assessment PT Clinical Summary Patient presents with weakness, decreased functional mobility, and decreased gross endurance both orthopedic and pulmonary endurance. Patient has very little tolerance to activity at this time and will benefit form skilled therapy to address these deficits. Attention will be payed to L UE pain with fore arm and wrist. Plan of Care Interventions Gait Training,Manual Therapy,Neuro Re-education, Therapeutic Activities,Therapeutic Exercise PT Services Indicated Yes Treatment Frequency and 2x/week for 8 visits Duration These treatments will address the objective and functional deficits as defined above. The patient will be advanced safely and appropriately in order for the patient to progress towards his/her prior level of function. Additional exercises will be introduced and as well as a comprehensive home exercise program upon discharge, if needed, ?to ensure carryover of functional gains achieved in the clinic. This treatment plan has been reviewed and agreement upon by the patient.
--- NOTE | 2024-12-27 08:13 | PCPTNOTE ---
Cancelled, ill per front office. AKS
--- NOTE | 2025-01-14 12:07 | OPREHPOC ---
Outpatient Therapy Plan of Care This is a Multidisciplinary Plan of Care that may contain components documented by all disciplines (PT, OT, and ST.) PT Problem 1 PT Problem #1 Knowledge Deficit PT Goal 1 Goal / Goal Update [place] with HEP Target Visit 4 Progress Met PT Goal 2 Goal / Goal Update Patient will tolerate 5 minutes of light cardiovascular exercise without rest 01/14/25: Improving. 2 minutes max at this time Target Visit 16 Progress Partially Met PT Problem 2 PT Problem #2 Impaired Strength PT Goal 1 Goal / Goal Update 1. Improve raghavendra hip flexion strength to 4/5 to improve foot clearance with gait. 2. Improve raghavendra hip abduction strength to 4/5 to improve lateral stability during gait and ADL performance 01/14/25: Improving. Still needs consistent strengthening Target Visit 16 Progress Partially Met PT Problem 3 PT Problem #3 Impaired Functional Mobility PT Goal 1 Goal / Goal Update 1. Demonstrate ability to ascend and descend 3 steps with use of handrail 2. Ambulate 150 feet in 2 minute walk test 3. Perform sit to stand without use of raghavendra arms x 1 01/14/25: Improving goal 1. Met goals 2 and 3 Target Visit 16
--- NOTE | 2025-01-14 12:07 | PTOPPROG ---
Assessment and note entered by Kavin Chaidez, PT Evaluation Information Assessment Status Progress ICD-10 Condition Codes (PT) Difficulty Walking R26.2,Weakness R53.1 Onset October 2024 Subjective Information Patient states that overall she is having a little breathing and stomach issue today. Denies any pain. She feels that therapy has helped her and she is stronger, but she is a little more fatigued . She has been using the oxygen a little less when moving around the home. She is taking a diuretic and has to go to the bathroom frequently. She has been having some trouble with her left ankle but therapy has helped that and it is doing better. Still having difficulty with her left hand. She still cannot stand very long or walk for more than a couple hundred feet without rest. Son and Constanza both in agreement that she would like to continue therapy. Assessment PT Clinical Summary Patient has seen improvement in strength, balance, and mobility at this time. It is evidenced that she has seen benefit from physical therapy and continues to show potential to do so. We would like to continue to focus on strength and improve ability to prolong standing activity to return to shopping and improved self care. Plan of Care Interventions Gait Training,Manual Therapy,Neuro Re-education, Therapeutic Activities,Therapeutic Exercise PT Services Indicated Yes Treatment Frequency and 2x/week for 8 visits Duration These treatments will address the objective and functional deficits as defined above. The patient will be advanced safely and appropriately in order for the patient to progress towards his/her prior level of function. Additional exercises will be introduced and as well as a comprehensive home exercise program upon discharge, if needed, ?to ensure carryover of functional gains achieved in the clinic. This treatment plan has been reviewed and agreement upon by the patient.
--- NOTE | 2025-01-28 11:42 | PCPTNOTE ---
Pt cancelled d/t to ankle pain. Son called in for pt, per front office. AKS
--- NOTE | 2025-02-21 11:54 | OPREHPOC ---
Outpatient Therapy Plan of Care This is a Multidisciplinary Plan of Care that may contain components documented by all disciplines (PT, OT, and ST.) PT Problem 1 PT Problem #1 Knowledge Deficit PT Goal 1 Goal / Goal Update [place] with HEP Target Visit 4 Progress Met PT Goal 2 Goal / Goal Update Patient will tolerate 5 minutes of light cardiovascular exercise without rest Target Visit 16 Progress Met PT Problem 2 PT Problem #2 Impaired Strength PT Goal 1 Goal / Goal Update 1. Improve raghavendra hip flexion strength to 4/5 to improve foot clearance with gait. 2. Improve raghavendra hip abduction strength to 4/5 to improve lateral stability during gait and ADL performance 01/14/25: Improving. Still needs consistent strengthening Target Visit 16 Progress Partially Met PT Problem 3 PT Problem #3 Impaired Functional Mobility PT Goal 1 Goal / Goal Update 1. Demonstrate ability to ascend and descend 3 steps with use of handrail 2. Ambulate 150 feet in 2 minute walk test 3. Perform sit to stand without use of raghavendra arms x 1 01/14/25: Improving goal 1. Met goals 2 and 3 Target Visit 16 Progress Met
--- NOTE | 2025-02-21 11:54 | PTOPDC ---
Assessment and note entered by Kavin Chaidez, PT Evaluation Information Assessment Status Discharge ICD-10 Condition Codes (PT) Difficulty Walking R26.2,Weakness R53.1 Onset October 2024 Subjective Information Patient reports that overall she has seen progress . She is abilio to go for longer stretches without supplemental oxygen. Reports that she would like to take some time off for the holidays. Will follow up if she feels needed in the meantime. Reported Pain Level Pain Score 0: Self Report Assessment PT Clinical Summary Patient has met majority of goals for therapy and is suitable for discharge to [facility] at this time. Patient to continue supervised exercise with son and focus on frequent ambulation. Plan of Care PT Services Indicated Yes
== END 2025-02-21 17:13 | disposition home or self-care (01) ==
LOC: ANHPT 11:00
PROVIDERS: PCP Family Medicine Adolescent Medicine; Visit Provider Family Medicine Adolescent Medicine
DX: R53.1 Weakness (principal); R26.2 Difficulty in walking, not elsewhere classified
CPT/HCPCS: 97110; 97116; 97161; 97530

== ENCOUNTER 2025-03-17 16:55 | Emergency (ER) | payer MEDICARE, SELFPAY ==
--- NOTE | ~2025-03-17 | XR_ITS ---
EXAMINATION: XR chest 1V portable COMPARISON: No comparisons available. HISTORY: sob FINDINGS: Mild pulmonary venous congestion. No pneumothorax. Mild cardiomegaly. Mediastinal and hilar contours are within normal limits. Bony thorax no acute abnormality. Miscellaneous: None Impression: Mild CHF Reviewed, dictated and finalized at location P. SS REGISTRAR Impression: Mild CHF
--- NOTE | ~2025-03-17 | XR_ITS ---
EXAMINATION: XR ankle RT 2V, 03/17/2025 18:50 TRANSMISSION SYSTEM OPERATOR HISTORY: Nontraumatic pain COMPARISON: No comparisons available. Findings: No acute fracture or malalignment. No significant degenerative changes. Soft tissues unremarkable. Impression: No acute fracture or malalignment. Reviewed, dictated and finalized at location P. SMISSION SYSTEM OPERATOR Impression: No acute fracture or malalignment.
[2025-03-17 16:57] VITALS: BP 136/63; PULSE 49; RESP 16; TEMP 36.8; O2SAT 100
--- NOTE | 2025-03-17 17:25 | ED.LOWEXIN ---
HPI - Extremity Injury (Lower) General Chief Complaint: Extremity Injury, Lower Stated Complaint: Weakness, R foot Pain Time Seen by Provider: 03/17/25 17:15 Source: patient, family and EMS Mode of arrival: EMS Limitations: no limitations History of Present Illness HPI Narrative: 84 years old white female came to the ED with pain at the lateral side of right ankle for over 5 years, no specific diagnosis, was told arthritis in the past. Patient is allergic to a lot of medications. Patient's son at the bedside who is telling me that patient gained weight lately although she does not have any trouble breathing or chest pain. Patient leave with her son. She denies any fever, chills, nausea, vomiting, chest pain, shortness of breath or ankle trauma. Patient currently on oxygen by nasal cannula 3 L Related Data Home Medications ?Medication ?Instructions ?Recorded ?Confirmed ?Last Taken ?Type acetaminophen 500 mg tablet 650 mg PO Q6H PRN pain 1-3 04/02/23 11/01/24 01/04/24 History (Tylenol Extra Strength) hydrocortisone acetate 25 mg 25 mg RECTAL ONCE PRN hemmorhoids 01/18/24 11/01/24 Unknown History rectal suppository (Anusol-HC) tolnaftate 1 % topical powder 1 applic topical Q12HR PRN 01/18/24 11/01/24 Unknown History irritation dextromethorphan-guaifenesin 10 10 ml PO Q4-6H PRN Cough 03/18/24 11/01/24 Unknown History mg-100 mg/5 mL oral liquid (Safe Tussin DM) hydralazine 25 mg tablet See Rx Instructions .Route .COMPLEX 03/30/24 11/01/24 Unknown History budesonide-formoterol HFA 80 See Rx Instructions .Route .COMPLEX 11/01/24 11/01/24 Unknown History mcg-4.5 mcg/actuation aerosol inhaler (Breyna) cyanocobalamin (vitamin B-12) 1,000 mcg PO 1200 11/01/24 11/01/24 Unknown History 1,000 mcg tablet (Vitamin B-12) insulin aspart U-100 100 unit/mL See Rx Instructions subcut TID 11/01/24 11/01/24 Unknown History (3 mL) subcutaneous pen (Novolog FlexPen U-100 Insulin aspart) metolazone 5 mg tablet 10 mg PO 1200 11/01/24 11/01/24 Unknown History Allergies Allergy/AdvReac Type Severity Reaction Status Date / Time Penicillins Allergy Severe HIVES Verified 02/12/25 10:08 hydrocodone AdvReac Severe SEVERE GI Verified 02/12/25 10:08 UPSET, N/V nitrofurantoin AdvReac Severe Swelling Verified 02/12/25 10:08 propoxyphene AdvReac Severe GI UPSET Verified 02/12/25 10:08 acetaminophen (From AdvReac Unknown Unknown Verified 02/12/25 10:08 Darvocet-N) adhesive tape AdvReac Unknown Unknown Verified 02/12/25 10:08 amlodipine AdvReac Unknown Unknown Verified 02/12/25 10:08 glimepiride AdvReac Unknown Unknown Verified 02/12/25 10:08 metformin AdvReac Unknown Unknown Verified 02/12/25 10:08 omeprazole (From Prilosec) AdvReac Unknown Unknown Verified 02/12/25 10:08 pioglitazone AdvReac Unknown Unknown Verified 02/12/25 10:08 simvastatin (From Zocor) AdvReac Unknown Unknown Verified 02/12/25 10:08 Review of Systems Review of Systems: All systems reviewed & are unremarkable except as noted in HPI and below PMFSH Past Medical History Medical History Macular degeneration Chronic anticoagulation C. difficile colitis B12 deficiency Gout Gastroesophageal reflux disease Acute psychosis Asthma Chronic systolic (congestive) heart failure Nonexudative age-related macular degeneration, right eye, intermediate dry stage Hepatic steatosis Aortic atherosclerosis Overactive bladder Acquired hypertriglyceridemia GERD (gastroesophageal reflux disease) Hypertension Surgical History Surgical History History of repair of rotator cuff History of cholecystectomy Family History Family History Father Asthma Cerebrovascular accident Family history of diabetes mellitus in first degree relative Sibling Family history of diabetes mellitus in first degree relative Family history of malignant neoplasm of urinary bladder Mother Family history of heart disease in male family member before age 55 Other Family history of arthritis Hypertension Social History Social History Social History: Surrogate medical decision maker: Julio Audrey, son. Code status: Full code. Smoking packs per day: 1 Smoking cigarettes per day: 20.0 Years smoked: 15 Smoking pack-years: 15.00 Smoking status: Never smoker Second hand tobacco smoke exposure: Yes Alcohol intake: never Substance use: never Substance use type: does not use Do You Feel Safe in your Home?: Yes Lack of Transportation: No Lack of Food: Never True Current Housing: I Have Housing Concerned About Future Housing: No Difficulty Paying Gas/Electric Bills: No Difficulty Paying for Meds: No Currently Unemployed: No Education: High School Diploma/GED Difficulty w/ Childcare or Family Care: No Living arrangements: with family Occupation/Education: retired Spiritual care concerns: No Exam Narrative: General appearance: Well-developed, well-nourished Skin: Normal color Head: Normocephalic, nontraumatic Eyes: Clear conjunctiva ENT: Oropharynx normal, ears normal, nose normal Neck: Supple, nontender Chest and respiratory: Airway patent, no respiratory distress, no accessory muscle use Heart: Regular rate/rhythm Abdomen: Soft, nontender, no organomegaly, quiet bowel sounds Vascular: Normal peripheral pulses, normal capillary refill. 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[employer]IC is normal as tested, no gross motor deficit Course Vital Signs Vital signs: Vital Signs Temperature 36.8 C 03/17/25 16:57 Pulse Rate 49 L 03/17/25 16:57 Respiratory Rate 16 03/17/25 16:57 Blood Pressure 136/63 03/17/25 16:57 Pulse Oximetry 100 03/17/25 16:57 Oxygen Delivery Room Air 03/17/25 16:57 Temperature 36.8 C 03/17/25 16:57 Pulse Rate 50 L 03/17/25 18:06 Respiratory Rate 17 03/17/25 18:06 Blood Pressure 99/63 L 03/17/25 18:06 Pulse Oximetry 97 03/17/25 18:06 Oxygen Delivery Room Air 03/17/25 16:57 MDM - Extremity Injury (Lower) MDM Narrative Medical decision making narrative: Patient came to the ED with chronic right ankle pain for over 5 years with intermittent flare. Patient's son reported that patient has gained weight over the last few weeks. Patient did not take her diuretics today because of pain at the right ankle. Vital signs are stable Physical examination showing severe tenderness right ankle laterally otherwise chronic findings Differential diagnosis include arthritis, tendinitis, Blood workup today includes CBC, CMP, troponin, pro BMP showed no significant abnormality compared to the past Chest x-ray showed mild CHF Right ankle x-ray showed no acute osseous abnormality EKG showed sinus bradycardia at 47 beats per minute Patient's pain at the right ankle improved after Tylenol. Patient declined rehab or residential placement. Patient was advised to take her home medications on time as prescribed Diagnosis chronic right ankle pain, noncompliance with medications The pt was discharged to home.the pt,s condition upon discharge was fair,education was provided to the pt in reference to the final impression,discharge study results,treatment,prognosis and need for follow up . Differential Diagnosis Differential diagnosis: Likely other (As above) Medical Records Attestation: I reviewed the patient's medical records. Lab Data Attestation: I reviewed the patient's lab results. 03/17/25 18:45 03/17/25 18:45 Labs: Lab Results 03/17/25 03/17/25 03/17/25 Range/Units 18:44 18:45 18:45 WBC 9.9 (4.5-10.0) K/mm3 RBC 3.90 L (4.2-5.4) M/mm3 Hgb 11.9 L (12.0-15.0) g/dL Hct 37.5 (37.0-47.0) % MCV 96.2 (80-100) fl MCH 30.5 (26-34) pg MCHC 31.7 L (32-36) g/dl RDW 13.3 (11.5-14.5) % Plt Count 194 (150-375) k/mm3 MPV 10.6 H (7.4-10.4) fl Immature Gran % (Auto) 0.6 H (0-0.5) % Neut % (Auto) 73.0 (45.5-73.1) % Lymph % (Auto) 13.5 L (18.3-44.2) % [place] % (Auto) 10.9 H (2.6-8.5) % Eos % (Auto) 1.3 (0-4.4) % Baso % (Auto) 0.7 (0.2-1.2) % Lymph # (Auto) 1.33 (0.9-3.2) K/mm3 [place] # (Auto) 1.1 H (0.1-0.6) K/mm3 Eos # (Auto) 0.1 (0-0.3) K/mm3 Baso # (Auto) 0.1 (0.0-0.1) K/mm3 Abs Immat Gran (auto) 0.06 H (0.00-0.031) K/mm3 Absolute Neuts (auto) 7.2 H (1.3-6.7) K/mm3 Absolute Nucleated RBC 0.000 (0.0-0.012) K/mm3 Nucleated RBC % 0.0 (0.0-0.2) % ESR 46 H (0-20) mm/hr PT 13.2 (11.1-14.7) Seconds INR 1.0 APTT 30.7 (22.3-36.8) Seconds Sodium 136 L (137-145) mmol/L Potassium 5.0 (3.4-5.0) mmol/L Chloride 99 (98-107) mmol/L Carbon Dioxide 32 H (22-30) mmol/L Anion Gap 5 (4-12) mmol/L BUN 54 H D (7-17) mg/dL Creatinine 1.28 H (0.7-1.0) mg/dL Estim Creat Clear Calc 28 ml/min Estimated GFR 40 L (59 - ) Glucose 109 (65-110) mg/dL Calcium 9.3 (8.4-10.2) mg/dL Total Bilirubin 0.5 (0.2-1.3) mg/dL AST 22 (14-36) U/L ALT 11 (6-35) U/L Alkaline Phosphatase 93 (38-126) U/L Troponin I < 0.012 Cancelled (0.000-0.034) ng/mL NT-Pro-B Natriuret Pep 407 H (19.9-100) pg/mL Total Protein 7.5 (6.3-8.2) g/dL Albumin 3.9 (3.5-5.1) g/dL Imaging Data Radiologist's impression: Impressions Ankle X-Ray 03/17/25 18:59 Impression: No acute fracture or malalignment. Chest X-Ray 03/17/25 18:59 Impression: Mild CHF ECG Data EKG #1: Attestation: I personally reviewed and interpreted this ECG as follows: ECG completion date: 03/17/25 Interpretation: Sinus bradycardia at 47 beats per minute with short FL interval, low QRS voltage in precordial leads, possible right ventricular conduction delay compared to EKG on November 02, 2024, sinus rhythm now no longer present Discharge Plan Discharge Clinical Impression: Ankle pain, chronic, Non-compliance Patient Disposition: Home Condition: Improved Instructions: Arthralgia (ED) Additional Instructions: Return if symptoms are worsening , call your family physician/orthopedic for appointment, take Tylenol 650 every 6 hours as needed for aches and pain, continue home medications. Taking your home medicine exactly as prescribed do not skip diuretics. Keep right foot elevated, Use a walker Patient Language: Citizen [place] Prescriptions: No Action hydrocortisone acetate [Anusol-HC] 25 mg suppository 25 mg RECTAL ONCE PRN (Reason: hemmorhoids) tolnaftate 1 % powder 1 applic topical Q12HR PRN (Reason: irritation) Patient Comments: breakout up breast Rx Instructions: apply to affected areas hydralazine 25 mg tablet See Rx Instructions .ROUTE .COMPLEX Rx Instructions: TAKE 1 TABLET BY MOUTH THREE TIMES DAILY dextromethorphan-guaifenesin [Safe Tussin DM] 10-100 mg/5 mL Liquid 10 ml PO Q4-6H PRN (Reason: Cough) Patient Comments: as needed--approx 1-2 tablespoons a day acetaminophen [Tylenol Extra Strength] 500 mg Tablet 650 mg PO Q6H PRN (Reason: pain 1-3) ferrous sulfate [Slow Release Iron] 142 mg (45 mg iron) Tablet Extended Release 142 mg PO DAILY@0800 Qty: 30 0RF folic acid 1 mg Tablet 1 mg PO DAILY Qty: 30 0RF metolazone 5 mg tablet 10 mg PO 1200 cyanocobalamin (vitamin B-12) [Vitamin B-12] 1,000 mcg Tablet 1,000 mcg PO 1200 insulin aspart U-100 [Novolog FlexPen U-100 Insulin] 100 unit/mL (3 mL) insulin pen See Rx Instructions subcut TID Rx Instructions: Inject 3-6 units before meals subcutaneously three times a day; budesonide-formoterol [Breyna] 80-4.5 mcg/actuation HFA aerosol inhaler See Rx Instructions .ROUTE .COMPLEX Rx Instructions: Inhale 2 puffs by mouth daily furosemide 40 mg tablet 40 mg PO DAILY Qty: 180 2RF (DME) FreeStyle Calixto 3 [place] Misc See Rx Instructions .Route Qty: 1 0RF Rx Instructions: Use to check blood glucose tid or as directed (DME) FreeStyle Calixto 3 Sensor Device See Rx Instructions .Route Qty: 4 5RF Rx Instructions: Use to check blood glucose tid or as directed sucralfate 100 mg/mL suspension 1,000 mg PO ACHS PRN (Reason: GERD) Qty: 420 3RF (DME) FreeStyle Calixto 2 Plus Sensor Device See Rx Instructions .Route Qty: 6 6RF Rx Instructions: As directed ondansetron 4 mg tablet,disintegrating See Rx Instructions .ROUTE .COMPLEX Qty: 20 3RF Dose Instruction: DISSOLVE 1 TABLET IN MOUTH EVERY 8 HOURS Rx Instructions: DISSOLVE 1 TABLET IN MOUTH EVERY 8 HOURS solifenacin 10 mg tablet 10 mg PO DAILY Qty: 30 0RF pantoprazole 40 mg tablet,delayed release (DR/EC) 40 mg PO QAM Qty: 90 2RF Entresto 24-26 mg tablet See Rx Instructions .ROUTE .COMPLEX Qty: 60 5RF Dose Instruction: TAKE 1 TABLET BY MOUTH EVERY 12 HOURS Rx Instructions: TAKE 1 TABLET BY MOUTH EVERY 12 HOURS insulin glargine [Basaglar KwikPen U-100 Insulin] 100 unit/mL (3 mL) insulin pen 16 unit subcut DAILY Qty: 15 6RF (DME) pen needle, diabetic 31 gauge x 5/16 needle See Rx Instructions .Route Qty: 150 5RF Rx Instructions: Use to inject insulin 4 times daily or as directed spironolactone 25 mg tablet See Rx Instructions .ROUTE .COMPLEX Qty: 90 0RF Dose Instruction: Take 1 tablet by mouth once daily Rx Instructions: Take 1 tablet by mouth once daily metoprolol tartrate 75 mg tablet 75 mg PO BID Qty: 180 2RF albuterol sulfate [Ventolin HFA] 90 mcg/actuation HFA aerosol inhaler 2 puff INHALATION Q2H PRN (Reason: sob, wheezing) Qty: 8.5 5RF Jardiance 10 mg tablet 10 mg PO DAILY Qty: 30 0RF doxazosin 8 mg tablet 8 mg PO DAILY Qty: 90 1RF azithromycin 250 mg tablet 250 mg PO DAILY 7 Days Qty: 7 0RF Follow-up/Referrals: Neris Moura APRN [Primary Care Provider, Family Practice]
[2025-03-17 18:06] VITALS: BP 99/63; PULSE 50; RESP 17; O2SAT 97
--- NOTE | 2025-03-17 18:16 | ECG_ITS ---
Test Date: 2025-03-17 19:14:28 Measurements Intervals [place] Rate: 47 P: 7 NH: 118 QRS: -11 QRSD: 82 T: 30 QT: 445 QTc: 394 Interpretive Statements SINUS BRADYCARDIA WITH SHORT NH INTERVAL LOW QRS VOLTAGE IN PRECORDIAL LEADS [QRS DEFLECTION < 1.0 mV IN CHEST LEADS] POSSIBLE RIGHT VENTRICULAR CONDUCTION DELAY [RSR (QR) IN V1/V2] Compared to ECG 11/02/2024 14:55:27 Short NH interval now present Sinus rhythm no longer present Myocardial infarct finding no longer present Electronically Signed On 03-17-2025 20:00:38 STOCK SHIPPER by Jeana Peoples M.D.
[2025-03-17] MEDS: ACETAMINOPHEN 325 MG TABLET 650 MG PO (18:42)
[2025-03-17 18:51] LABS: Hematocrit 37.5 % (37.0-47.0); Hemoglobin 11.9 g/dL (12.0-15.0); Immature Granulocyte Percent A 0.6 % (0-0.5); Lymphocytes Absolute Auto 1.33 K/mm3 (0.9-3.2); Mean Corpuscular HGB Conc 31.7 g/dl (32-36); Mean Corpuscular Hemoglobin 30.5 pg (26-34); Mean Corpuscular Volume 96.2 fl (80-100); Nucleated Red Blood Cells Absolute Auto 0.000 K/mm3 (0.0-0.012); Nucleated Red Blood Cells Perc 0.0 % (0.0-0.2); Platelet Count Result 194 k/mm3 (150-375); Red Blood Count 3.90 M/mm3 (4.2-5.4); White Blood Count 9.9 K/mm3 (4.5-10.0)
[2025-03-17 19:06] LABS: INR 1.0; Prothrombin Time 13.2 Seconds (11.1-14.7)
[2025-03-17 19:07] LABS: Partial Thromboplastin Time 30.7 Seconds (22.3-36.8)
[2025-03-17 19:08] LABS: Alanine Aminotransferase 11 U/L (6-35); Albumin Level 3.9 g/dL (3.5-5.1); Alkaline Phosphatase 93 U/L (38-126); Anion Gap 5 mmol/L (4-12); Aspartate Amino Transferase 22 U/L (14-36); Bilirubin,Total 0.5 mg/dL (0.2-1.3); Blood Urea Nitrogen 54 mg/dL (7-17); Calcium 9.3 mg/dL (8.4-10.2); Carbon Dioxide 32 mmol/L (22-30); Chloride 99 mmol/L (98-107); Estimated CRCL calculation 28 ml/min; Estimated Glomerular Filt Rate 40; Glucose 109 mg/dL (65-110); Potassium 5.0 mmol/L (3.4-5.0); Sodium 136 mmol/L (137-145); Total Protein 7.5 g/dL (6.3-8.2)
[2025-03-17 19:19] LABS: NT Pro B Type Natriuretic Pept 407 pg/mL (19.9-100); Troponin I < 0.012 ng/mL (0.000-0.034)
== END 2025-03-17 22:08 | disposition home or self-care (01) ==
PROVIDERS: Emergency Provider Emergency Medicine; PCP Nurse Practitioner Family
DX: M25.571 Pain in right ankle and joints of right foot (principal); G89.29 Other chronic pain; T50.2X6A Underdosing of carbonic-anhydrase inhibitors, benzothiadiazides and other diuretics, initial encounter; Z91.128 Patient's intentional underdosing of medication regimen for other reason; I50.22 Chronic systolic (congestive) heart failure; I11.0 Hypertensive heart disease with heart failure; I70.0 Atherosclerosis of aorta; E53.8 Deficiency of other specified B group vitamins; N32.81 Overactive bladder; H35.3112 Nonexudative age-related macular degeneration, right eye, intermediate dry stage; K21.9 Gastro-esophageal reflux disease without esophagitis; M10.9 Gout, unspecified; F17.210 Nicotine dependence, cigarettes, uncomplicated; Z99.81 Dependence on supplemental oxygen; Z90.49 Acquired absence of other specified parts of digestive tract; R00.1 Bradycardia, unspecified; R94.31 Abnormal electrocardiogram [ECG] [EKG]; Z79.899 Other long term (current) drug therapy
CPT/HCPCS: 36415; 71045; 73600; 80053; 83880; 84484; 85025; 85610; 85652; 85730; 93005; 99284; A9270